=== PATIENT | female | born 1940 | race Caucasian/White ===

== ENCOUNTER 2019-12-29 10:07 | Inpatient (IN) | payer MEDICARE, OTHER, SELFPAY ==
[2019-12-29] VITALS (11 sets, daily range): BP systolic 180–204; BP diastolic 57–84; PULSE 66–102; RESP 18–20; TEMP 35.9–36.9; O2SAT 96–100; BMI 35.6
--- NOTE | 2019-12-29 | US_ITS ---
EXAMINATION: US VENOUS ULTRASOUND WITH DOPPLER UPPER EXTREMITY, RIGHT CLINICAL INFORMATION: Right arm edema/swelling. Assess for occult DVT. COMPARISON: Chest radiograph 12/29/2019, bilateral lower extremity venous ultrasound 12/29/2019. TECHNIQUE: Ultrasound of the upper extremity is performed using compression sonography and color and pulse Doppler flow with assessment of augmentation of flow. There is also imaging and Doppler assessment of the jugular and subclavian veins. Spectral analysis with color-flow imaging is performed. FINDINGS: Respiratory variation, normal compression, and augmented flow are noted throughout the upper extremity including the axillary, brachial, cubital, and radial and ulnar veins. There is normal flow in the internal jugular and subclavian veins. There is no visible deep or superficial thrombophlebitis. IMPRESSION: No DVT demonstrated in the right upper extremity.
--- NOTE | 2019-12-29 | US_ITS ---
EXAMINATION: US VENOUS ULTRASOUND WITH DOPPLER LOWER EXTREMITY, BILATERAL CLINICAL INFORMATION: Lower extremity pain and swelling. Assess for occult DVT. COMPARISON: Report bilateral lower extremity venous ultrasound 11/21/2019, images unavailable. TECHNIQUE: Ultrasound of the bilateral lower extremity deep veins is performed from the hip to the calf with compression sonography and color and pulse Doppler assessment. Spectral analysis with color-flow imaging is performed. FINDINGS: There is normal venous compression and respiratory variation and augmented flow bilateral lower extremity. The visualized bilateral common femoral vein, superficial femoral vein, profunda femoral vein, popliteal vein, and the trifurcation region shows no evidence of deep venous thrombosis. There is no significant popliteal fossa cyst on either side. IMPRESSION: No DVT demonstrated in the bilateral lower extremity.
--- NOTE | 2019-12-29 | XR_ITS ---
EXAMINATION: XR CHEST, PORTABLE CLINICAL INFORMATION: Shortness of breath, dyspnea COMPARISON: Report chest radiographs 11/21/2019, films unavailable. TECHNIQUE: Portable upright AP view of the chest is performed. FINDINGS: Patient is slightly rotated to the right. There are low lung volumes. The lungs are grossly clear. There is no vascular congestion, airspace consolidation, or effusion. The cardiopericardial silhouette is mildly enlarged as noted on prior report. The costophrenic sulci are clear. The visualized hilar and mediastinal contours and bony structures are unremarkable. IMPRESSION: Mild cardiomegaly as noted on prior report. No vascular congestion, infiltrate, or effusion.
--- NOTE | 2019-12-29 10:55 | ED.SOB ---
HPI - SOB/Dyspnea General Chief Complaint: Weakness Stated Complaint: weakness/htn/fall Time Seen by Provider: 12/29/19 10:55 Source: patient and EMS Mode of arrival: EMS Limitations: no limitations History of Present Illness HPI Narrative: reportedly slipped out of bed this AM EMS called for lift assist the patient refused transport found to be short of breath, 911 called again for shortness of breath in 70s per EMS given 3L NC up to 90s, patient reports overall severe swelling had been on diuretics in the past but not now, states she is swollen and has rouble breathing MD elicited complaint: shortness of breath Onset (ago): week(s) (2) Timing: constant Severity: moderate Exacerbating factors: exertion Relieving factors: oxygen and rest Associated symptoms: orthopnea Treatment prior to arrival: oxygen Related Data Home Medications Medication Instructions Recorded Confirmed amlodipine 10 mg tablet 10 mg PO DAILY 12/24/19 12/29/19 blood sugar diagnostic #10 12/24/19 carvedilol 6.25 mg tablet 6.25 mg PO BID 12/24/19 12/29/19 cholecalciferol (vitamin D3) 50 50 mcg PO DAILY 12/24/19 12/29/19 mcg (2,000 unit) capsule ferrous gluconate 324 mg (37.5 mg 324 mg PO BID 12/24/19 12/29/19 iron) tablet gabapentin 300 mg capsule 300 mg PO TID 12/24/19 12/29/19 hydralazine 25 mg tablet 25 mg PO TID 12/24/19 12/29/19 insulin degludec 200 unit/mL (3 46 unit SUBCUT [facility] 12/24/19 12/29/19 mL) subcutaneous pen isosorbide mononitrate 60 mg 60 mg PO M 12/24/19 12/29/19 tablet,extended release 24 hr lancets 33 gauge #100 12/24/19 levothyroxine 50 mcg tablet 50 mcg PO DAILY 12/24/19 12/29/19 linagliptin 5 mg tablet 5 mg PO DAILY 12/24/19 12/29/19 omeprazole 20 mg capsule,delayed 20 mg PO [facility] 12/24/19 12/29/19 release pen needle, diabetic 32 gauge x #50 12/24/19 rosuvastatin 10 mg tablet 10 mg PO BEDTIME 12/24/19 12/29/19 insulin aspart U-100 [Novolog 7 - 9 unit SUBCUT TID 12/29/19 12/29/19 Flexpen U-100 Insulin] Allergies Allergy/AdvReac Type Severity Reaction Status Date / Time oxycodone Allergy Unknown rash Verified 12/29/19 11:15 Review of Systems Review of Systems: Constitutional : No Fever, No Chills ENT/Mouth : No sore throat, No Rhinorrhea, No Swallowing Difficulty Eyes: No Eye Pain, No Swelling, No Redness Cardiovascular : No Chest Pain, positive SOB, positive Orthopnea, positive Edema Respiratory : No Cough, No Sputum, pos Wheezing, positive dyspnea Gastrointestinal : No Nausea, No Vomiting, No Diarrhea, No abdominal Pain Genitourinary : No Dysuria, No Urinary Frequency Neuro : positive diffuse Weakness, No Numbness, No Dizziness, No Headache Psych : No Anxiety/Panic, No Depression Heme/Lymph: No Bruising, No Lymphadenopathy Endocrine : No Polyuria, No Polydipsia PMFSH Past Medical History Attestation statement: The following information was validated with the patient. Medical History Anemia Bronchitis CAD (coronary artery disease) CKD (chronic kidney disease) Diabetes Dyslipidemia GERD (gastroesophageal reflux disease) HTN (hypertension) Hypothyroid Surgical History H/O angioplasty H/O heart artery stent H/O: hysterectomy Social History Social History Alcohol intake: never Smoking Status: Former smoker Smoked in Last 30 Days: No Use of substances other than those prescribed or required for medical reasons: No Advance Directives: No Advance Directives Information Provided: No Physical Exam Vital Signs and I&O and Narrative: Vital Signs and I&O: Vital Signs Temp 96.7 F L 12/29/19 10:16 Pulse 72 12/29/19 13:11 Resp 20 12/29/19 13:11 BP 180/84 H 12/29/19 13:11 Pulse Ox 96 12/29/19 13:11 Intake & Output 12/28/19 12/29/19 12/29/19 18:59 06:59 18:59 Weight 88.313 kg Body Mass Index 35.6 Const: General: alert, awake and acute distress (mild respiratory) Orientation/consciousness: patient oriented x3 HENMT: Head: Yes normal to inspection Mouth: moist mucous membranes abnormal Eyes: Eyelids: Yes eyelids normal Pupils: Equal, round and reactive pupils present Neck: Neck: Yes trachea midline Resp: Effort & Inspection: audible wheezes, respiratory distress (mild), tachypneic and uses accessory muscles Auscultation: rales and wheezes Cardio: Jugular venous distension: JVD Rate: regular rate Rhythm: regular rhythm Peripheral pulses: Peripheral pulses 2+ throughout GI: Palpation (GI): Soft to palpation and nontender Skin: General skin exam: no rashes or lesions noted Neuro: General: patient oriented x3 Cranial nerves: Yes Equal, round and reactive pupils present Motor exam (neuro): 5/5 motor strength present throughout Sensory Exam: Normal double simultaneous stimulation for sensation Extrem: Other: bilateral 2 to 3+ pitting edema BLE, RUE pitting edema as well 3+ denies injury Course Course Hospital Course: patient reports feeling improved after treatments, afebrile, no WBC count, negative lactic acid, negative DVT study, will need admission for further workup and diuresis MDM - SOB/Dyspnea MDM Narrative Medical decision making narrative: patient with wheezes, dyspnea states she used to be on a diuretic here with edema as well - will need labs, neb, IV steroids, EKG, CXR, BNP, likely diuretic planned admit suspect volume overload as cause Lab Data Result diagrams: 12/29/19 10:58 12/29/19 10:58 Labs: Lab Results 12/29/19 12/29/19 12/29/19 Range/Units 10:58 10:58 10:58 WBC 11.2 H (4.8-10.8) X10*3/uL RBC 3.73 L (4.20-5.50) X10*6/uL Hgb 10.1 L (12.0-16.0) g/dl Hct 31.7 L (37-47) % MCV 85.0 (80-98) fL MCH 27.1 (27.0-33.0) pg MCHC 31.9 (31.0-35.0) g/dl RDW 15.5 (11.0-16.0) % Plt Count 242 (160-400) X10*3/uL MPV 10.5 (9.4-12.3) fL Immature Gran % (Auto) 0.4 (0.0-0.4) % Neut % (Auto) 80.0 H (45-73) % Lymph % (Auto) 12.3 L (20-40) % [place] % (Auto) 5.7 (2-11) % Eos % (Auto) 1.2 (0-4) % Baso % (Auto) 0.4 (0-2) % Neut # (Auto) 8.9 H (2.0-8.3) X10*3/uL Lymph # (Auto) 1.4 (1.2-4.9) X10*3/uL [place] # (Auto) 0.6 (0.1-1.2) X10*3/uL Eos # (Auto) 0.1 (0.0-0.4) X10*3/uL Baso # (Auto) 0.1 (0.0-0.2) X10*3/uL Abs Immat Gran (auto) 0.04 H (0.00-0.03) X10*3/uL Absolute Nucleated RBC 0.000 (0.0-0.012) X10*3/uL Nucleated RBC % (auto) 0.0 (0.0-0.2) /100WBC PT (10.8-13.0) SEC INR (0.9-1.1) APTT (24.1-38.0) SEC Hold Blue Top Sodium 143 (135-145) mmol/L Potassium 4.6 (3.3-5.1) mmol/l Chloride 108 (96-108) mmol/L Carbon Dioxide 26 (22-29) mmol/L Anion Gap 14 (12-20) BUN 26 H (9-16) mg/dL Creatinine (0.5-1.4) mg/dL Estim Creat Clear Calc 21.8 Estimated GFR 22 Random Glucose 101 (60-115) mg/dL Lactic Acid (0.5-2.0) mmol/L Calcium 8.8 (8.4-10.2) mg/dL Magnesium (1.6-2.6) mg/dL Total Bilirubin (0.0-1.0) mg/dL Direct Bilirubin (0.0-0.5) mg/dL AST (5-31) U/L ALT (0-31) U/L Alkaline Phosphatase (39-117) U/L Troponin I High Sens 7.0 (<3.5-17.0) ng/L B-Natriuretic Peptide 122 H (<100) pg/mL Total Protein (6.5-8.0) g/dL Albumin (3.5-5.0) g/dL 12/29/19 12/29/19 12/29/19 Range/Units 10:58 12:06 12:06 WBC (4.8-10.8) X10*3/uL RBC (4.20-5.50) X10*6/uL Hgb (12.0-16.0) g/dl Hct (37-47) % MCV (80-98) fL MCH (27.0-33.0) pg MCHC (31.0-35.0) g/dl RDW (11.0-16.0) % Plt Count (160-400) X10*3/uL MPV (9.4-12.3) fL Immature Gran % (Auto) (0.0-0.4) % Neut % (Auto) (45-73) % Lymph % (Auto) (20-40) % [place] % (Auto) (2-11) % Eos % (Auto) (0-4) % Baso % (Auto) (0-2) % Neut # (Auto) (2.0-8.3) X10*3/uL Lymph # (Auto) (1.2-4.9) X10*3/uL [place] # (Auto) (0.1-1.2) X10*3/uL Eos # (Auto) (0.0-0.4) X10*3/uL Baso # (Auto) (0.0-0.2) X10*3/uL Abs Immat Gran (auto) (0.00-0.03) X10*3/uL Absolute Nucleated RBC (0.0-0.012) X10*3/uL Nucleated RBC % (auto) (0.0-0.2) /100WBC PT 12.0 (10.8-13.0) SEC INR 1.0 (0.9-1.1) APTT 44.9 H (24.1-38.0) SEC Hold Blue Top SEE NOTE Sodium (135-145) mmol/L Potassium (3.3-5.1) mmol/l Chloride (96-108) mmol/L Carbon Dioxide (22-29) mmol/L Anion Gap (12-20) BUN (9-16) mg/dL Creatinine (0.5-1.4) mg/dL Estim Creat Clear Calc Estimated GFR Random Glucose (60-115) mg/dL Lactic Acid (0.5-2.0) mmol/L Calcium (8.4-10.2) mg/dL Magnesium 2.2 (1.6-2.6) mg/dL Total Bilirubin 0.4 (0.0-1.0) mg/dL Direct Bilirubin 0.2 (0.0-0.5) mg/dL AST 22 (5-31) U/L ALT 11 (0-31) U/L Alkaline Phosphatase 83 (39-117) U/L Troponin I High Sens (<3.5-17.0) ng/L B-Natriuretic Peptide (<100) pg/mL Total Protein 5.8 L (6.5-8.0) g/dL Albumin 3.5 (3.5-5.0) g/dL 12/29/19 Range/Units 12:06 WBC (4.8-10.8) X10*3/uL RBC (4.20-5.50) X10*6/uL Hgb (12.0-16.0) g/dl Hct (37-47) % MCV (80-98) fL MCH (27.0-33.0) pg MCHC (31.0-35.0) g/dl RDW (11.0-16.0) % Plt Count (160-400) X10*3/uL MPV (9.4-12.3) fL Immature Gran % (Auto) (0.0-0.4) % Neut % (Auto) (45-73) % Lymph % (Auto) (20-40) % [place] % (Auto) (2-11) % Eos % (Auto) (0-4) % Baso % (Auto) (0-2) % Neut # (Auto) (2.0-8.3) X10*3/uL Lymph # (Auto) (1.2-4.9) X10*3/uL [place] # (Auto) (0.1-1.2) X10*3/uL Eos # (Auto) (0.0-0.4) X10*3/uL Baso # (Auto) (0.0-0.2) X10*3/uL Abs Immat Gran (auto) (0.00-0.03) X10*3/uL Absolute Nucleated RBC (0.0-0.012) X10*3/uL Nucleated RBC % (auto) (0.0-0.2) /100WBC PT (10.8-13.0) SEC INR (0.9-1.1) APTT (24.1-38.0) SEC Hold Blue Top Sodium (135-145) mmol/L Potassium (3.3-5.1) mmol/l Chloride (96-108) mmol/L Carbon Dioxide (22-29) mmol/L Anion Gap (12-20) BUN (9-16) mg/dL Creatinine (0.5-1.4) mg/dL Estim Creat Clear Calc Estimated GFR Random Glucose (60-115) mg/dL Lactic Acid 0.6 (0.5-2.0) mmol/L Calcium (8.4-10.2) mg/dL Magnesium (1.6-2.6) mg/dL Total Bilirubin (0.0-1.0) mg/dL Direct Bilirubin (0.0-0.5) mg/dL AST (5-31) U/L ALT (0-31) U/L Alkaline Phosphatase (39-117) U/L Troponin I High Sens (<3.5-17.0) ng/L B-Natriuretic Peptide (<100) pg/mL Total Protein (6.5-8.0) g/dL Albumin (3.5-5.0) g/dL ECG Data Attestation: I personally reviewed and interpreted this ECG as follows: ECG interpretation date: 12/29/19 ECG interpretation time: 11:29 Interpretation: NSR 73, normal p waves leslie, normal QRS, left axis deviation, nonspecific ST T wave changes, no ischemia artifact present Discharge Plan Discharge Clinical Impression: Acute dyspnea, Weakness Edema Qualifiers: Edema type: generalized Qualified Code(s): R60.1 - Generalized edema Patient Disposition: Admitted As Inpatient
[2019-12-29 11:04] LABS: MANUAL DIFF FLAG NO
--- NOTE | 2019-12-29 11:10 | ECG_ITS ---
Test Reason : SOB Blood Pressure : / mmHG Vent. Rate : 073 BPM Atrial Rate : 073 BPM P-R Int : 132 ms QRS Dur : 074 ms QT Int : 404 ms P-R-T Axes : 031 005 091 degrees QTc Int : 445 ms Poor data quality, interpretation may be adversely affected Normal sinus rhythm Nonspecific T wave abnormality Abnormal ECG When compared with ECG of 22-NOV-2019 14:16, T wave inversion no longer evident in Lateral leads Referred By: Amairani Strong Electronically Signed By:BERNARDINO BEAVERS
[2019-12-29 11:13] LABS: Basophils Absolute Auto 0.1 X10*3/uL (0.0-0.2); Basophils Percent Auto 0.4 % (0-2); Eosinophils Absolute Auto 0.1 X10*3/uL (0.0-0.4); Eosinophils Percent Auto 1.2 % (0-4); Hematocrit 31.7 % (37-47); Hemoglobin 10.1 g/dl (12.0-16.0); Imm Gran Abs Auto 0.04 X10*3/uL (0.00-0.03); Imm Gran Pct Auto 0.4 % (0.0-0.4); Lymphocytes Absolute Auto 1.4 X10*3/uL (1.2-4.9); Lymphocytes Percent Auto 12.3 % (20-40); Mean Corpuscular HGB Conc 31.9 g/dl (31.0-35.0); Mean Corpuscular Hemoglobin 27.1 pg (27.0-33.0); Mean Platelet Volume 10.5 fL (9.4-12.3); Monocytes Absolute Auto 0.6 X10*3/uL (0.1-1.2); Monocytes Percent Auto 5.7 % (2-11); Neutrophils Absolute Auto 8.9 X10*3/uL (2.0-8.3); Platelet Count 242 X10*3/uL (160-400); Red Blood Count 3.73 X10*6/uL (4.20-5.50); Red Cell Distribution Width 15.5 % (11.0-16.0); White Blood Count 11.2 X10*3/uL (4.8-10.8)
[2019-12-29 11:36] LABS: Anion Gap 14 (12-20); Blood Urea Nitrogen 26 mg/dL (9-16); Calcium 8.8 mg/dL (8.4-10.2); Carbon Dioxide 26 mmol/L (22-29); Chloride 108 mmol/L (96-108); Creatinine Clr Calc Pharmacy 21.8; Estimated Glomerular Filt Rate 22; Glucose Random 101 mg/dL (60-115); Potassium 4.6 mmol/l (3.3-5.1); Sodium 143 mmol/L (135-145)
[2019-12-29 11:44] LABS: B Type Natriuretic Peptide 122 pg/mL (<100)
[2019-12-29] MEDS: Albuterol/Iprat 2.5/0.5MG 3 ML AMPUL.NEB INHALE ×2 (11:47→20:43)
--- NOTE | 2019-12-29 11:50 | PC.NURSE ---
PT ALERT AND ORIENTED X4, BUT FORGETFUL AND POOR HISTORIAN AT TIMES. SKIN WPD. RESPIRATIONS LABORED, ACCESSORY MUSCLE USE, LUNGS DIMINISHED WITH EXP WHEEZES THROUGHOUT. ACCORDING TO EMS, PT SP02 WAS 77% ON RA THIS AM. NOW 100% ON 2L VIA NC. MODERATE EDEMA TO LOWER EXTREMITIES, AND MILD EDEMA TO UPPER EXTREMITIES. IV ACCESS OBTAINED (20G TO LEFT AC BY THIS RN, 22G TO RIGHT HAND BY EMS). LABS SENT. MEDICATED WITH SOLUMEDROL AND UPDRAFT (BY RT) PER EMAR. AWAITING CHEST XRAY, BLOOD RESULTS.
[2019-12-29 12:24] LABS: Partial Thromboplastin Time 44.9 SEC (24.1-38.0)
[2019-12-29 12:48] LABS: Lactic Acid 0.6 mmol/L (0.5-2.0)
[2019-12-29 12:51] LABS: Alanine Aminotransferase 11 U/L (0-31); Albumin Level 3.5 g/dL (3.5-5.0); Alkaline Phosphatase 83 U/L (39-117); Aspartate Amino Transferase 22 U/L (5-31); Bilirubin Direct 0.2 mg/dL (0.0-0.5); Bilirubin Total 0.4 mg/dL (0.0-1.0); Magnesium 2.2 mg/dL (1.6-2.6); Total Protein 5.8 g/dL (6.5-8.0)
[2019-12-29] MEDS: methylPREDNISolone Sod Succ/PF 125 MG/2 ML VIAL IVPUSH (13:05)
[2019-12-29] MEDS: Furosemide 100 MG/10 ML VIAL 60 MG IVPUSH (14:42)
[2019-12-29 16:10] LABS: Glucose Urine UA NEG (NEG); Leukocyte Esterase Urine NEG (NEG); Nitrite Urine NEG (NEG); PH 7.5 (5.0-8.0); Urine Blood 1+ (NEG); Urine Ketones NEG (NEG); Urine Protein 3+ MG/DL (NEG-TRACE)
[2019-12-29] MEDS: Morphine Sulfate 4 MG/ML CARTRIDGE 2 MG IVPUSH (16:10)
[2019-12-29 16:13] LABS: Thyroid Stimulating Hormone 3.47 mIU/mL (0.32-4.0)
[2019-12-29 16:16] LABS: Appearance Urine HAZY; Color Urine YELLOW
--- NOTE | 2019-12-29 16:43 | P.HPIM_ITS ---
History of Present Illness Date of Service: 12/29/19 Chief Complaint: shortness of breath generalized swelling 79-year-old female presented with weakness fall and generalized swelling, patient was recently admitted to [facility] treated for sepsis secondary to UTI and NSTEMI patient reported she was feeling weak yesterday she went to bed around 12:00 o'clock and fell down from bed around 15:00, EMS was called patient found to be hypoxic, patient was placed on 2 L of nasal cannula and oxygen improved in 90s , patient reported some urinary frequency, denies any fever chills nausea vomiting, patient noticed to have generalized swelling for last few days and was getting worse, patient was taking Lasix before but stopped , patient denies any sick contacts, patient has CKD and significant proteinuria patient is being followed by [facility] but does not remember the name BNP was normal , but given generalized edema patient was given IV Lasix echocardiogram from June 2018 shows EF 60-65% Review of Systems 2 Review of Systems: Yes all other systems are reviewed and are negative Eyes: Eyes: Reports no additional eye complaints Cardiovascular: Cardiovascular: Reports leg edema and Reports dyspnea Respiratory: Respiratory: Reports dyspnea Gastrointestinal: Gastrointestinal: Reports no additional gastrointestinal complaints Musculoskeletal: Musculoskeletal: Reports arthralgias Neurologic: Reports system reviewed and no additional complaints, except as documented [facility] Medical History (Updated 12/30/19 @ 10:43 by Dash Batista MD) Anemia Bronchitis CAD (coronary artery disease) CKD (chronic kidney disease) Diabetes Dyslipidemia GERD (gastroesophageal reflux disease) HTN (hypertension) Hypothyroid Functional capacity: uses cane/walker Patient : No Surgical History H/O angioplasty H/O heart artery stent H/O: hysterectomy Social History Household Members: Spouse Housing: House Do you presently have visiting nurse or other home services: Yes Alcohol intake: never Smoking Status: Never smoker Smoked in Last 30 Days: No Second Hand Smoke Exposure: Yes Use of substances other than those prescribed or required for medical reasons: Yes Currently Displaying Signs/Symptoms of Drug Intoxication Withdrawal: No Have you been hit, kicked, punched, or otherwise hurt by someone within the past year? If so, by whom?: No Do you feel safe in your current relationship?: Yes Is there a partner from a previous relationship who is making you feel unsafe now?: No Are you made to feel afraid or neglected: No Spiritual Healthcare Practices: Buddhism Advance Directives: No Advance Directives Information Provided: No Do you have thoughts of harming others: None Do you have a plan to hurt others: No Plan Recently lost weight without trying: No service: No Meds Allergies Allergy/AdvReac Type Severity Reaction Status Date / Time oxycodone Allergy Unknown rash Verified 12/29/19 11:15 Home Medications Medication Instructions Recorded Confirmed Type blood sugar diagnostic #10 ea 12/24/19 12/29/19 History lancets 33 gauge #100 ea 12/24/19 12/29/19 History pen needle, diabetic 32 gauge x #50 ea 12/24/19 12/29/19 History amlodipine 10 mg PO DAILY 12/29/19 12/29/19 History carvedilol 6.25 mg PO BID 12/29/19 12/29/19 History cholecalciferol (vitamin D3) 50 mcg PO DAILY 12/29/19 12/29/19 History ferrous gluconate 324 mg PO BID 12/29/19 12/29/19 History gabapentin 300 mg PO TID 12/29/19 12/29/19 History hydralazine 25 mg PO TID 12/29/19 12/29/19 History insulin aspart U-100 [Novolog 7 - 9 unit SUBCUT TID 12/29/19 12/29/19 History Flexpen U-100 Insulin] insulin degludec [Tresiba 46 unit SUBCUT DAILY 12/29/19 12/29/19 History FlexTouch U-200] isosorbide mononitrate 60 mg PO DAILY 12/29/19 12/29/19 History levothyroxine 50 mcg PO DAILY 12/29/19 12/29/19 History linagliptin [Tradjenta] 5 mg PO DAILY 12/29/19 12/29/19 History Physical Exam Vital Signs and Narrative: Vital Signs: Last Vital Signs Temp 96.7 F L 12/29/19 10:16 Pulse 72 12/29/19 13:11 Resp 20 12/29/19 13:11 BP 180/84 H 12/29/19 13:11 Pulse Ox 96 12/29/19 13:11 Body Mass Index 35.6 Const: General: no acute distress Orientation/consciousness: patient oriented x3 Resp: Auscultation: rales and wheezes Cardio: Rate: regular rate Heart sounds: S1 normal heart sound present and S2 normal heart sound present GI: Inspection: Yes normal to inspection Auscultation: normal bowel sounds Neuro: General: patient oriented x3 Results Labs Labs: Laboratory Tests 12/29/19 12/29/19 12/29/19 10:58 10:58 10:58 WBC 11.2 H RBC 3.73 L Hgb 10.1 L Hct 31.7 L MCV 85.0 MCH 27.1 MCHC 31.9 RDW 15.5 Plt Count 242 MPV 10.5 Immature Gran % (Auto) 0.4 Neut % (Auto) 80.0 H Lymph % (Auto) 12.3 L [place] % (Auto) 5.7 Eos % (Auto) 1.2 Baso % (Auto) 0.4 Neut # (Auto) 8.9 H Lymph # (Auto) 1.4 [place] # (Auto) 0.6 Eos # (Auto) 0.1 Baso # (Auto) 0.1 Abs Immat Gran (auto) 0.04 H Absolute Nucleated RBC 0.000 Nucleated RBC % (auto) 0.0 PT INR APTT Hold Blue Top Sodium 143 Potassium 4.6 Chloride 108 Carbon Dioxide 26 Anion Gap 14 BUN 26 H Creatinine Estim Creat Clear Calc 21.8 Estimated GFR 22 Random Glucose 101 Lactic Acid Calcium 8.8 Magnesium Total Bilirubin Direct Bilirubin AST ALT Alkaline Phosphatase Troponin I High Sens 7.0 B-Natriuretic Peptide 122 H Total Protein Albumin TSH Urine Color Urine Appearance Urine pH Ur Specific [place] Urine Protein Urine Glucose (UA) Urine Ketones Urine Blood Urine Nitrite Ur Leukocyte Esterase 12/29/19 12/29/19 12/29/19 10:58 12:06 12:06 WBC RBC Hgb Hct MCV MCH MCHC RDW Plt Count MPV Immature Gran % (Auto) Neut % (Auto) Lymph % (Auto) [place] % (Auto) Eos % (Auto) Baso % (Auto) Neut # (Auto) Lymph # (Auto) [place] # (Auto) Eos # (Auto) Baso # (Auto) Abs Immat Gran (auto) Absolute Nucleated RBC Nucleated RBC % (auto) PT 12.0 INR 1.0 APTT 44.9 H Hold Blue Top SEE NOTE Sodium Potassium Chloride Carbon Dioxide Anion Gap BUN Creatinine Estim Creat Clear Calc Estimated GFR Random Glucose Lactic Acid Calcium Magnesium 2.2 Total Bilirubin 0.4 Direct Bilirubin 0.2 AST 22 ALT 11 Alkaline Phosphatase 83 Troponin I High Sens B-Natriuretic Peptide Total Protein 5.8 L Albumin 3.5 TSH 3.47 Urine Color Urine Appearance Urine pH Ur Specific [place] Urine Protein Urine Glucose (UA) Urine Ketones Urine Blood Urine Nitrite Ur Leukocyte Esterase 12/29/19 12/29/19 12:06 16:01 WBC RBC Hgb Hct MCV MCH MCHC RDW Plt Count MPV Immature Gran % (Auto) Neut % (Auto) Lymph % (Auto) [place] % (Auto) Eos % (Auto) Baso % (Auto) Neut # (Auto) Lymph # (Auto) [place] # (Auto) Eos # (Auto) Baso # (Auto) Abs Immat Gran (auto) Absolute Nucleated RBC Nucleated RBC % (auto) PT INR APTT Hold Blue Top Sodium Potassium Chloride Carbon Dioxide Anion Gap BUN Creatinine Estim Creat Clear Calc Estimated GFR Random Glucose Lactic Acid 0.6 Calcium Magnesium Total Bilirubin Direct Bilirubin AST ALT Alkaline Phosphatase Troponin I High Sens B-Natriuretic Peptide Total Protein Albumin TSH Urine Color YELLOW Urine Appearance HAZY Urine pH 7.5 Ur Specific [place] 1.020 Urine Protein 3+ H Urine Glucose (UA) NEG Urine Ketones NEG Urine Blood 1+ H Urine Nitrite NEG Ur Leukocyte Esterase NEG Assessment and Plan (1) Generalized edema: Status: Acute (2) COPD exacerbation: Status: Acute 79-year-old female presented with weakness fall and generalized swelling Generalized swelling with significant proteinuria and CKD rule out nephrotic syndrome bnp normal received IV Lasix will continue IV Lasix nephrology consult mild COPD exacerbation will give nebulizer treatment and steroids continue oxygen supplementation reported to be hypoxic on room air at home CKD monitor kidney function avoid nephrotoxins diabetes mellitus continue sliding scale insulin DVT prophylaxis heparin s/c
[2019-12-29 16:44] LABS: UACC CULT YES
[2019-12-29 16:45] LABS: Bacteria Urine 3+ /LPF; RBC Urine 0-2 /HPF (0)
--- NOTE | 2019-12-29 17:46 | PC.NURSE ---
PATIENT TRANSPORTED TO FLOOR VIA FLOAT. REPORT GIVEN NO QUESTIONS.
[2019-12-29] MEDS: predniSONE 20 MG TABLET PO (19:06)
[2019-12-29] MEDS: Isosorbide Mononitrate 60 MG TAB.ER.24H PO (19:06)
[2019-12-29] MEDS: Heparin Sodium,Porcine 5,000 UNIT/ML VIAL 5000 UNIT SUBCUT (20:46)
[2019-12-29] MEDS: Furosemide 40 MG/4 ML VIAL IVPUSH (20:47)
[2019-12-29] MEDS: carvediloL 6.25 MG TABLET PO (21:04)
[2019-12-29] MEDS: hydrALAZINE HCl 25 MG TABLET PO (21:05)
[2019-12-29] MEDS: Ferrous Sulfate 324 MG TABLET.DR PO (21:06)
[2019-12-29] MEDS: Gabapentin 300 MG CAPSULE PO (21:06)
[2019-12-29 21:30] LABS: Glucose, Whole Blood 313 mg/dL (60-115)
[2019-12-29] MEDS: Insulin Lispro 100 UNIT/ML 3 ML VIAL SUBCUT (21:50)
[2019-12-29] MEDS: 0.9 % Sodium Chloride Flush 3 ML SYRINGE 2 ML IVFLUSH ×2 (23:41→23:46)
[2019-12-30] VITALS (11 sets, daily range): BP systolic 149–195; BP diastolic 55–90; PULSE 66–79; RESP 16–150; TEMP 36.3–37.5; O2SAT 95–98; BMI 35.6
[2019-12-30] MEDS: Heparin Sodium,Porcine 5,000 UNIT/ML VIAL 5000 UNIT SUBCUT ×3 (04:00→20:20)
[2019-12-30 07:42] LABS: Glucose, Whole Blood 171 mg/dL (60-115)
[2019-12-30] MEDS: Insulin Lispro 100 UNIT/ML 3 ML VIAL SUBCUT ×4 (07:51→21:27)
[2019-12-30] MEDS: Levothyroxine Sodium 50 MCG TABLET PO (07:52)
[2019-12-30] MEDS: Furosemide 40 MG/4 ML VIAL IVPUSH ×2 (07:52→20:18)
[2019-12-30] MEDS: Isosorbide Mononitrate 60 MG TAB.ER.24H PO (07:52)
[2019-12-30] MEDS: Gabapentin 300 MG CAPSULE PO ×3 (07:52→20:17)
[2019-12-30] MEDS: hydrALAZINE HCl 25 MG TABLET PO ×3 (07:53→20:17)
[2019-12-30] MEDS: Cholecalciferol (Vitamin D3) 25 MCG TABLET 50 MCG PO (07:53)
[2019-12-30] MEDS: 0.9 % Sodium Chloride Flush 3 ML SYRINGE 2 ML IVFLUSH ×3 (07:53→23:41)
[2019-12-30] MEDS: Ferrous Sulfate 324 MG TABLET.DR PO ×2 (07:53→20:16)
[2019-12-30] MEDS: carvediloL 6.25 MG TABLET PO ×2 (07:53→20:16)
[2019-12-30] MEDS: predniSONE 20 MG TABLET PO (07:53)
[2019-12-30] MEDS: Albuterol/Iprat 2.5/0.5MG 3 ML AMPUL.NEB INHALE ×3 (08:07→19:41)
[2019-12-30 08:55] LABS: MANUAL DIFF FLAG NO
--- NOTE | 2019-12-30 09:10 | P.CDIC_ITS ---
CDI Concurrent Query Service Date: 12/30/19 Documentation Clarification: Please clarify if you are treating a proba ble/suspected/likely or confirmed: Acute hypoxic respiratory failure POA, Resolved Please specify if known acute hypoxic respiratory failure Provider Response: Acute Respiratory Failure PLEASE DO NOT DELETE/MODIFY EXISTING CONTENT Additional information is needed in order to code to the highest accuracy and appropriate Severity of Illness (SOI). Please clarify the information noted below in your progress notes and discharge summary. Risk Factors/Clinical Indicators/Treatments HR 120 RR 20 dyspnea, orthopnea, hypoxic, SOB , sats 70's per EMS given 3 liters NC up to 90's. Trouble breathing. COPD, History of smoking. CDS: Kimberly Shi CCS, CDIS Contact Number: [phone] Please Review the information above and exercise your independent professional judgment in responding to the query. If you concur, pleas document in the PROGRESS NOTES and DISCHARGE SUMMARY. If you do not agree with the query, please document in the query above. THIS QUERY IS PART OF THE PERMANENT MEDICAL RECORD
[2019-12-30 09:14] LABS: Basophils Percent Auto 0.1 % (0-2); Hematocrit 26.9 % (37-47); Hemoglobin 8.4 g/dl (12.0-16.0); Imm Gran Abs Auto 0.06 X10*3/uL (0.00-0.03); Imm Gran Pct Auto 0.6 % (0.0-0.4); Lymphocytes Absolute Auto 1.1 X10*3/uL (1.2-4.9); Mean Corpuscular HGB Conc 31.2 g/dl (31.0-35.0); Mean Corpuscular Hemoglobin 26.2 pg (27.0-33.0); Mean Corpuscular Volume 83.8 fL (80-98); Mean Platelet Volume 10.5 fL (9.4-12.3); Monocytes Absolute Auto 0.2 X10*3/uL (0.1-1.2); Monocytes Percent Auto 2.1 % (2-11); Neutrophils Absolute Auto 8.6 X10*3/uL (2.0-8.3); Neutrophils Percent Auto 86.2 % (45-73); Platelet Count 225 X10*3/uL (160-400); Red Blood Count 3.21 X10*6/uL (4.20-5.50); Red Cell Distribution Width 15.5 % (11.0-16.0)
[2019-12-30 09:40] LABS: Anion Gap 13 (12-20); Blood Urea Nitrogen 30 mg/dL (9-16); Calcium 8.4 mg/dL (8.4-10.2); Carbon Dioxide 28 mmol/L (22-29); Chloride 104 mmol/L (96-108); Creatinine Clr Calc Pharmacy 19.1; Estimated Glomerular Filt Rate 19; Glucose Random 222 mg/dL (60-115); Potassium 4.7 mmol/l (3.3-5.1); Sodium 140 mmol/L (135-145)
--- NOTE | 2019-12-30 10:10 | MHC.CM.PN ---
dc plan home with resumption of hvns pt lives with who will transport pt home
--- NOTE | 2019-12-30 10:22 | P.CONNP_ITS ---
History of Present Illness Reason for Consult Consult date: 12/30/19 Reason for consult: MARILEE Requesting physician: Ray Good Chief Complaint Chief complaint: weakness/htn/fall; History of Present Illness Narrative: 79-year-old female presented with weakness fall and generalized swelling, patient was recently admitted to [facility] treated for sepsis secondary to UTI and NSTEMI Marielena has CKD 3 with a baseline Cr of 2.0 as of Apr 2019. Biopsy proven Diabeti c nephropathy ( [place] [facility] [place] patient reported she was feeling weak yesterday she went to bed around 12:00 o'clock and fell down from bed around 15:00, EMS was called patient found to be hypoxic, patient was placed on 2 L of nasal cannula and oxygen improved in 90s , patient reported some urinary frequency, denies any fever chills nausea vomiting, patient noticed to have generalized swelling for last few days and was getting worse, patient was taking Lasix before but stopped , patient denies any sick contacts, BNP was normal , but given generalized edema patient was given IV Lasix echocardiogram from June 2018 shows EF 60-65% Review of Systems Review of Systems Yes all other systems are reviewed and are negative Cardiovascular: Denies chest pain, Denies syncope and Reports dyspnea Respiratory: Denies cough, Denies hemoptysis and Reports dyspnea Gastrointestinal: Denies melena and Denies nausea Reports system reviewed and no additional complaints, except as documented and Denies syncope [facility] Past Medical History Medical History (Updated 12/30/19 @ 10:43 by Dash Batista MD) Anemia Bronchitis CAD (coronary artery disease) CKD (chronic kidney disease) Diabetes Dyslipidemia GERD (gastroesophageal reflux disease) HTN (hypertension) Hypothyroid Functional capacity: uses cane/walker Surgical History Surgical History H/O angioplasty H/O heart artery stent H/O: hysterectomy Social History Social History Household Members: Spouse Housing: House Do you presently have visiting nurse or other home services: Yes Alcohol intake: never Smoking Status: Never smoker Smoked in Last 30 Days: No Second Hand Smoke Exposure: Yes Use of substances other than those prescribed or required for medical reasons: Yes Currently Displaying Signs/Symptoms of Drug Intoxication Withdrawal: No Have you been hit, kicked, punched, or otherwise hurt by someone within the past year? If so, by whom?: No Do you feel safe in your current relationship?: Yes Is there a partner from a previous relationship who is making you feel unsafe now?: No Are you made to feel afraid or neglected: No Spiritual Healthcare Practices: Christianity Advance Directives: No Advance Directives Information Provided: No Do you have thoughts of harming others: None Do you have a plan to hurt others: No Plan Recently lost weight without trying: No service: No Meds Allergies Allergy/AdvReac Type Severity Reaction Status Date / Time oxycodone Allergy Unknown rash Verified 12/29/19 11:15 Home Medications Medication Instructions Recorded Confirmed Type blood sugar diagnostic #10 ea 12/24/19 12/29/19 History lancets 33 gauge #100 ea 12/24/19 12/29/19 History pen needle, diabetic 32 gauge x #50 ea 12/24/19 12/29/19 History /32 amlodipine 10 mg PO DAILY 12/29/19 12/29/19 History carvedilol 6.25 mg PO BID 12/29/19 12/29/19 History cholecalciferol (vitamin D3) 50 mcg PO DAILY 12/29/19 12/29/19 History ferrous gluconate 324 mg PO BID 12/29/19 12/29/19 History gabapentin 300 mg PO TID 12/29/19 12/29/19 History hydralazine 25 mg PO TID 12/29/19 12/29/19 History insulin aspart U-100 [Novolog 7 - 9 unit SUBCUT TID 12/29/19 12/29/19 History Flexpen U-100 Insulin] insulin degludec [Tresiba 46 unit SUBCUT DAILY 12/29/19 12/29/19 History FlexTouch U-200] isosorbide mononitrate 60 mg PO DAILY 12/29/19 12/29/19 History levothyroxine 50 mcg PO DAILY 12/29/19 12/29/19 History linagliptin [Tradjenta] 5 mg PO DAILY 12/29/19 12/29/19 History Physical Exam Vital Signs and I&O: Vital Signs Temp 98.1 F 12/30/19 08:00 Pulse 66 12/30/19 08:00 Resp 18 12/30/19 08:00 BP 195/90 H 12/30/19 08:00 Pulse Ox 95 12/30/19 08:00 Intake & Output 12/29/19 12/30/19 12/30/19 18:59 06:59 18:59 Intake Total 240 / 240 Output Total 1800 / 2400 600 / 2400 Balance -1800 / -2160 -360 / -2160 Urine Output (Average ml/kg/hr) 1.70 0.57 Weight 88.313 kg Intake: Intake, Oral Amount 240 / 240 Output: Output, Urine Amount 1800 / 2400 600 / 2400 Other: Meal Refused No Urine macedo Body Mass Index 35.6 Const General: cooperative Orientation/consciousness: oriented to person HENCO Head: Yes normal to inspection Eyes General: appearance normal, both eyes and all related structures Chest Chest palpation & inspection: normal inspection of the chest Resp Effort & Inspection: decreased respiratory effort Auscultation: rhonchi Cardio Palpation: normal PMI Heart sounds: no gallops GI Inspection: Yes normal to inspection Palpation (GI): Soft to palpation Auscultation: normal bowel sounds Skin General skin exam: dry skin Rashes: no rashes Neuro General: oriented to person Motor exam (neuro): no asterixis Results Lab Results Result Diagrams: 12/30/19 08:37 12/30/19 08:37 Lab results: Chemistry 12/29/19 12/30/19 10:58 08:37 Sodium 143 140 Potassium 4.6 4.7 Carbon Dioxide 26 28 BUN 26 H 30 H Creatinine 2.46 H Calcium 8.8 8.4 Hematology 12/29/19 12/30/19 10:58 08:37 WBC 11.2 H 10.0 Hgb 10.1 L 8.4 L Plt Count 242 225 Urinalysis 12/29/19 16:01 Urine Color YELLOW Urine Appearance HAZY Urine pH 7.5 Ur Specific [place] 1.020 Urine Protein 3+ H Urine Glucose (UA) NEG Urine Ketones NEG Urine Blood 1+ H Urine Nitrite NEG Ur Leukocyte Esterase NEG Urine RBC 0-2 Urine WBC 5-9 H Ur Squamous Epith Cells NONE Assessment and Plan (1) CKD (chronic kidney disease) stage 3, GFR 30-59 ml/min: Problem details: 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 Increase Hydralazine to 50 mg TID 2.Add Bumex 1 mg BID 3.Check Iron stores- and stool for OB May need Procrit
[2019-12-30 11:19] LABS: Glucose, Whole Blood 342 mg/dL (60-115)
--- NOTE | 2019-12-30 15:17 | HO.PM.IMPN ---
Subjective Subjective Date of Service: 12/30/19 Interval History: patient seen and examined at bedside patient still reporting feeling weak Physical Exam Vital Signs and I&O and Narrative: Vital Signs and I&O: Vital Signs Temp 97.4 F 12/30/19 12:00 Pulse 71 12/30/19 12:00 Resp 19 12/30/19 12:00 BP 149/65 H 12/30/19 12:00 Pulse Ox 97 12/30/19 12:00 Intake & Output 12/29/19 12/30/19 12/30/19 18:59 06:59 18:59 Intake Total 240 / 240 Output Total 1800 / 2400 600 / 2400 800 / 800 Balance -1800 / -2160 -360 / -2160 -800 / -800 Urine Output (Aver age ml/kg/hr) 1.70 0.57 0.76 Weight 88.313 kg 88.3 kg Intake: Intake, Oral Casimiro unt 240 / 240 Output: Output, Urine Am ount 1800 / 2400 600 / 2400 800 / 800 Other: Meal Refused No Yes Breakfast % Eate n 75% Lunch % Eaten 100% Urine macedo macedo Urine Color Yellow Body Mass Index 35.6 Const: General: no acute distress Orientation/consciousness: patient oriented x3 Resp: Auscultation: rales and wheezes Cardio: Rate: regular rate Heart sounds: S1 normal heart sound present and S2 normal heart sound present GI: Inspection: Yes normal to inspection Auscultation: normal bowel sounds Neuro: General: patient oriented x3 Objective Data Current Medications Generic Name Dose Route Start Last Admin Trade Name Freq PRN Reason Stop Dose Admin Albuterol/Ipratropium 3 ml 12/29/19 20:00 12/30/19 14:35 Albuterol/Iprat 2.5/0.5mg 3 Ml Ampul.Neb INHALE 3 ml RQ6H WHILE AWAKE MORIAH Administration Carvedilol 6.25 mg 12/29/19 21:00 12/30/19 07:53 Carvedilol 6.25 Mg Tablet PO 6.25 mg BID MORIAH Administration Protocol Ferrous Sulfate 324 mg 12/29/19 21:00 12/30/19 07:53 Ferrous Sulfate 324 Mg Tablet. PO 324 mg BID MORIAH Administration Furosemide 40 mg 12/29/19 20:00 12/30/19 07:52 Furosemide 40 Mg/4 Ml Vial IVPUSH 40 mg Q12H MORIAH Administration Protocol Gabapentin 300 mg 12/29/19 21:00 12/30/19 07:52 Gabapentin 300 Mg Capsule PO 300 mg TID MORIAH Administration Heparin Sodium (Porcine) 5,000 unit 12/29/19 20:00 12/30/19 11:54 Heparin Sodium,Porcine 5,000 Unit/Ml Vial SUBCUT 5,000 unit Q8H MORIAH Administration Hydralazine HCl 25 mg 12/29/19 21:00 12/30/19 07:53 Hydralazine Hcl 25 Mg Tablet PO 25 mg TID MORIAH Administration Protocol Insulin Human Lispro 0 unit 12/29/19 21:00 12/30/19 11:54 Insulin Lispro 100 Unit/Ml 3 Ml Vial SUBCUT 8 unit QIDACHS [facility] Administration Protocol Isosorbide Mononitrate 60 mg 12/29/19 17:56 12/30/19 07:52 Isosorbide Mononitrate 60 Mg Tab.Er.24h PO 60 mg DAILY MORIAH Administration Protocol Levothyroxine Sodium 50 mcg 12/30/19 09:00 12/30/19 07:52 Levothyroxine Sodium 50 Mcg Tablet PO 50 mcg DAILY [facility] Administration Pharmacy Consult 1 each 12/29/19 11:02 Consult Rx Perform Med Rec MISCELLANE ONCE PRN Consult order Prednisone 20 mg 12/29/19 18:00 12/30/19 07:53 Prednisone 20 Mg Tablet PO 20 mg DAILY MORIAH Administration Sodium Chloride 2 ml 12/30/19 00:00 12/30/19 07:53 0.9 % Sodium Chloride Flush 3 Ml Syringe IVFLUSH 2 ml QSHIFT [facility] Administration Vitamin D 50 mcg 12/30/19 09:00 12/30/19 07:53 Cholecalciferol (Vitamin D3) 25 Mcg Tablet PO 50 mcg DAILY [facility] Administration Labs CBC & Chem 7: 12/30/19 08:37 12/30/19 08:37 Labs: Laboratory Results - last 24 hr 12/29/19 12/29/19 12/29/19 12:06 16:01 21:24 MCV MCH MCHC RDW Plt Count MPV Immature Gran % (Auto) Neut % (Auto) Lymph % (Auto) [place] % (Auto) Eos % (Auto) Baso % (Auto) Neut # (Auto) Lymph # (Auto) [place] # (Auto) Eos # (Auto) Baso # (Auto) Abs Immat Gran (auto) Absolute Nucleated RBC Nucleated RBC % (auto) Anion Gap Estim Creat Clear Calc Estimated GFR POC Glucose 313 H Random Glucose Calcium TSH 3.47 Urine Color YELLOW Urine Appearance HAZY Urine pH 7.5 Ur Specific [place] 1.020 Urine Protein 3+ H Urine Glucose (UA) NEG Urine Ketones NEG Urine Blood 1+ H Urine Nitrite NEG Ur Leukocyte Esterase NEG Urine RBC 0-2 Urine WBC 5-9 H Ur Squamous Epith Cells NONE Urine Bacteria 3+ 12/30/19 12/30/19 12/30/19 07:39 08:37 08:37 MCV 83.8 MCH 26.2 L MCHC 31.2 RDW 15.5 Plt Count 225 MPV 10.5 Immature Gran % (Auto) 0.6 H Neut % (Auto) 86.2 H Lymph % (Auto) 11.0 L [place] % (Auto) 2.1 Eos % (Auto) 0.0 Baso % (Auto) 0.1 Neut # (Auto) 8.6 H Lymph # (Auto) 1.1 L [place] # (Auto) 0.2 Eos # (Auto) 0.0 Baso # (Auto) 0.0 Abs Immat Gran (auto) 0.06 H Absolute Nucleated RBC 0.000 Nucleated RBC % (auto) 0.0 Anion Gap 13 Estim Creat Clear Calc 19.1 Estimated GFR 19 POC Glucose 171 H Random Glucose 222 H D Calcium 8.4 TSH Urine Color Urine Appearance Urine pH Ur Specific [place] Urine Protein Urine Glucose (UA) Urine Ketones Urine Blood Urine Nitrite Ur Leukocyte Esterase Urine RBC Urine WBC Ur Squamous Epith Cells Urine Bacteria 12/30/19 11:15 MCV MCH MCHC RDW Plt Count MPV Immature Gran % (Auto) Neut % (Auto) Lymph % (Auto) [place] % (Auto) Eos % (Auto) Baso % (Auto) Neut # (Auto) Lymph # (Auto) [place] # (Auto) Eos # (Auto) Baso # (Auto) Abs Immat Gran (auto) Absolute Nucleated RBC Nucleated RBC % (auto) Anion Gap Estim Creat Clear Calc Estimated GFR POC Glucose 342 H Random Glucose Calcium TSH Urine Color Urine Appearance Urine pH Ur Specific [place] Urine Protein Urine Glucose (UA) Urine Ketones Urine Blood Urine Nitrite Ur Leukocyte Esterase Urine RBC Urine WBC Ur Squamous Epith Cells Urine Bacteria Microbiology Microbiology Results: Microbiology 12/29/19 12:06 Blood - Venous Blood Culture - Preliminary No growth after 24 hours. 12/29/19 11:56 Blood - Venous Blood Culture - Preliminary No growth after 24 hours. 12/29/19 15:50 Urine clean catch - Clean Catch Midstream Urine Culture - Preliminary Gram negative tila Assessment and Plan (1) Generalized edema: Status: Acute (2) COPD exacerbation: Status: Acute Assessment and Plan: 79-year-old female presented with weakness fall and generalized swelling Generalized swelling with significant proteinuria and CKD rule out nephrotic syndrome bnp normal received IV Lasix continue IV Lasix nephrology consult requested mild COPD exacerbation continue nebulizer treatment and steroids continue oxygen supplementation acute hypoxic respiratory failure continue oxygen supplementation reported to be hypoxic on room air at home in 70s CKD monitor kidney function avoid nephrotoxins diabetes mellitus continue sliding scale insulin DVT prophylaxis heparin s/c
[2019-12-30 17:02] LABS: Glucose, Whole Blood 269 mg/dL (60-115)
[2019-12-30 20:52] LABS: Glucose, Whole Blood 257 mg/dL (60-115)
[2019-12-31] VITALS (11 sets, daily range): BP systolic 160–202; BP diastolic 55–86; PULSE 63–124; RESP 16–97; TEMP 36.4–37.1; O2SAT 95–98
[2019-12-31] MEDS: Heparin Sodium,Porcine 5,000 UNIT/ML VIAL 5000 UNIT SUBCUT ×3 (04:21→20:21)
[2019-12-31] MEDS: Albuterol/Iprat 2.5/0.5MG 3 ML AMPUL.NEB INHALE ×3 (07:39→20:22)
[2019-12-31 08:13] LABS: Glucose, Whole Blood 121 mg/dL (60-115)
[2019-12-31] MEDS: hydrALAZINE HCl 25 MG TABLET PO ×3 (08:34→21:15)
[2019-12-31] MEDS: predniSONE 20 MG TABLET PO (08:34)
[2019-12-31] MEDS: Levothyroxine Sodium 50 MCG TABLET PO (08:34)
[2019-12-31] MEDS: Cholecalciferol (Vitamin D3) 25 MCG TABLET 50 MCG PO (08:34)
[2019-12-31] MEDS: Ferrous Sulfate 324 MG TABLET.DR PO ×2 (08:34→21:15)
[2019-12-31] MEDS: Furosemide 40 MG/4 ML VIAL IVPUSH (08:34)
[2019-12-31] MEDS: Gabapentin 300 MG CAPSULE PO ×3 (08:34→21:15)
[2019-12-31] MEDS: carvediloL 6.25 MG TABLET PO ×2 (08:34→21:15)
[2019-12-31] MEDS: 0.9 % Sodium Chloride Flush 3 ML SYRINGE 2 ML IVFLUSH ×3 (08:35→23:27)
[2019-12-31] MEDS: Isosorbide Mononitrate 60 MG TAB.ER.24H PO (08:35)
[2019-12-31 10:26] LABS: Iron 46 mcg/dL (30-160); Percent Iron Saturation 21 % (15-50); Total Iron Binding Capacity 218 mcg/dL (228-428); Unsaturated Iron Binding 172 ug/dL
--- NOTE | 2019-12-31 12:04 | PM.PNNEP ---
Subjective Subjective Interval history: patient seen and examined at bedside feels weak denies chest pain,SOB, nausea, vomiting Physical Exam Vital Signs and I&O and Narrative: Vital Signs and I&O: Vital Signs Temp 98.8 F 12/31/19 07:24 Pulse 63 12/31/19 07:24 Resp 18 12/31/19 07:24 BP 202/80 H 12/31/19 07:24 Pulse Ox 98 12/31/19 08:00 Intake & Output 12/30/19 12/31/19 12/31/19 18:59 06:59 18:59 Intake Total 720 / 720 Output Total 800 / 2700 1900 / 2700 350 / 350 Balance -800 / -1980 -1180 / -1980 -350 / -350 Urine Output (Aver age ml/kg/hr) 0.76 1.79 0.33 Weight 88.3 kg Intake: Intake, Oral Casimiro unt 720 / 720 Output: Output, Urine Am ount 800 / 1700 900 / 1700 350 / 350 Output, Urine Am ount (Catheter) 1000 / 1000 Urethral 1000 / 1000 Other: Meal Refused Yes Breakfast % Eate n 75% Lunch % Eaten 100% Dinner % Eaten 100% Number of Bowel Movements 1 Urine mcaedo MACEDO Bedside Commode Urine Color Yellow Pale Yellow Yellow Stool Bedside Commode Stool Color Green Stool Consistenc y Semi Formed Body Mass Index 35.6 Const: General: comfortable Orientation/consciousness: oriented to person, oriented to place and oriented to time HENMT: Head: Yes normocephalic and Yes atraumatic Eyes: General: appearance normal, both eyes and all related structures Neck: Neck: Yes supple Resp: Auscultation: diminished lung sounds Cardio: Heart sounds: S1 normal heart sound present and S2 normal heart sound present Neuro: General: oriented to person, oriented to place and oriented to time Extrem: Right upper extremity: edema Assessment & Plan Assessment and plan (1) CKD (chronic kidney disease) stage 3, GFR 30-59 ml/min: Status: Acute (2) Proteinuria due to type 1 diabetes mellitus: Status: Acute (3) Anemia: Status: Acute (4) Edema: Status: Acute Assessment and Plan: Scr marginally up due to diuresis known CKD due to biopsy proven diabetic nephropathy history of nephrotic range proteinuria baseline serum creatinine ~ 2 mg/dl echocardiogram in 2019 showed LVEF 60-65% edema in the setting of proteinuria also high dose gabapentin can cause edema REC increase hydralazine 50 mg tid continue diuresis consider cut back if serum creatinine continues to rise follow kidney function and electrolytes Time Spent With Patient Time: Total time spent is greater than 50% in coordination of care (as documented) at patient's floor/unit and/or counseling patient:
--- NOTE | 2019-12-31 13:08 | HO.PM.IMPN ---
Subjective Subjective Date of Service: 12/31/19 Interval History: patient seen and examined at bedside patient reported some improvement in shortness of breath Physical Exam Vital Signs and I&O and Narrative: Vital Signs and I&O: Vital Signs Temp 98.7 F 12/31/19 12:00 Pulse 63 12/31/19 12:00 Resp 16 12/31/19 12:00 BP 160/70 H 12/31/19 12:00 Pulse Ox 97 12/31/19 12:00 Intake & Output 12/30/19 12/31/19 12/31/19 18:59 06:59 18:59 Intake Total 720 / 720 Output Total 800 / 2700 1900 / 2700 350 / 350 Balance -800 / -1980 -1180 / -1979 -350 / -350 Urine Output (Aver age ml/kg/hr) 0.76 1.79 0.33 Weight 88.3 kg Intake: Intake, Oral Casimiro unt 720 / 720 Output: Output, Urine Am ount 800 / 1700 900 / 1700 350 / 350 Output, Urine Am ount (Catheter) 1000 / 1000 Urethral 1000 / 1000 Other: Meal Refused Yes Breakfast % Eate n 75% Lunch % Eaten 100% Dinner % Eaten 100% Number of Bowel Movements 1 Urine macedo MACEDO Bedside Commode Urine Color Yellow Pale Yellow Yellow Stool Bedside Commode Stool Color Green Stool Consistenc y Semi Formed Body Mass Index 35.6 Const: General: no acute distress Orientation/consciousness: patient oriented x3 Resp: Auscultation: rales and wheezes Cardio: Rate: regular rate Heart sounds: S1 normal heart sound present and S2 normal heart sound present GI: Inspection: Yes normal to inspection Auscultation: normal bowel sounds Neuro: General: patient oriented x3 Objective Data Current Medications Generic Name Dose Route Start Last Admin Trade Name Freq PRN Reason Stop Dose Admin Albuterol/Ipratropium 3 ml 12/29/19 20:00 12/31/19 07:39 Albuterol/Iprat 2.5/0.5mg 3 Ml Ampul.Neb INHALE 3 ml RQ6H WHILE AWAKE MORIAH Administration Carvedilol 6.25 mg 12/29/19 21:00 12/31/19 08:34 Carvedilol 6.25 Mg Tablet PO 6.25 mg BID MORIAH Administration Protocol Ferrous Sulfate 324 mg 12/29/19 21:00 12/31/19 08:34 Ferrous Sulfate 324 Mg Tablet. PO 324 mg BID MORIAH Administration Furosemide 40 mg 12/29/19 20:00 12/31/19 08:34 Furosemide 40 Mg/4 Ml Vial IVPUSH 40 mg Q12H MORIAH Administration Protocol Gabapentin 300 mg 12/29/19 21:00 12/31/19 08:34 Gabapentin 300 Mg Capsule PO 300 mg TID MORIAH Administration Heparin Sodium (Porcine) 5,000 unit 12/29/19 20:00 12/31/19 04:21 Heparin Sodium,Porcine 5,000 Unit/Ml Vial SUBCUT 5,000 unit Q8H MORIAH Administration Hydralazine HCl 25 mg 12/29/19 21:00 12/31/19 08:34 Hydralazine Hcl 25 Mg Tablet PO 25 mg TID [facility] Administration Protocol Insulin Human Lispro 0 unit 12/29/19 21:00 12/31/19 08:35 Insulin Lispro 100 Unit/Ml 3 Ml Vial SUBCUT Not Given QIDACHS [facility] Protocol Isosorbide Mononitrate 60 mg 12/29/19 17:56 12/31/19 08:35 Isosorbide Mononitrate 60 Mg Tab.Er.24h PO 60 mg DAILY [facility] Administration Protocol Levothyroxine Sodium 50 mcg 12/30/19 09:00 12/31/19 08:34 Levothyroxine Sodium 50 Mcg Tablet PO 50 mcg DAILY [facility] Administration Pharmacy Consult 1 each 12/29/19 11:02 Consult Rx Perform Med Rec MISCELLANE ONCE PRN Consult order Prednisone 20 mg 12/29/19 18:00 12/31/19 08:34 Prednisone 20 Mg Tablet PO 20 mg DAILY [facility] Administration Sodium Chloride 2 ml 12/30/19 00:00 12/31/19 08:35 0.9 % Sodium Chloride Flush 3 Ml Syringe IVFLUSH 2 ml QSHIFT [facility] Administration Vitamin D 50 mcg 12/30/19 09:00 12/31/19 08:34 Cholecalciferol (Vitamin D3) 25 Mcg Tablet PO 50 mcg DAILY [facility] Administration Labs CBC & Chem 7: 12/31/19 13:37 12/31/19 13:37 Labs: Laboratory Results - last 24 hr 12/30/19 12/30/19 12/31/19 16:34 20:47 07:41 POC Glucose 269 H 257 H 121 H Iron TIBC % Saturation Unsat Iron Binding 10/03/20 09:04 POC Glucose Iron 46 TIBC 218 L % Saturation 21 Unsat Iron Binding 172 Microbiology Microbiology Results: Microbiology 12/29/19 12:06 Blood - Venous Blood Culture - Preliminary No growth after 24 hours. 12/29/19 11:56 Blood - Venous Blood Culture - Preliminary No growth after 24 hours. 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: Status: Acute (3) Anemia: Status: Acute (4) Edema: Status: Acute (5) Generalized edema: Status: Acute (6) COPD exacerbation: Status: Acute Assessment and Plan: 79-year-old female presented with weakness fall and generalized swelling Generalized swelling with significant proteinuria and CKD likely nephrotic syndrome bnp normal received IV Lasix nephrology consulted switched to Bumex continue diuresis monitor intake output monitor kidney function closely mild COPD exacerbation some improvement continue nebulizer treatment and steroids continue oxygen supplementation acute hypoxic respiratory failure continue oxygen supplementation reported to be hypoxic on room air at home in 70s CKD monitor kidney function avoid nephrotoxins diabetes mellitus continue sliding scale insulin DVT prophylaxis heparin s/c
[2019-12-31 13:56] LABS: MANUAL DIFF FLAG NO
[2019-12-31 13:59] LABS: Glucose, Whole Blood 198 mg/dL (60-115)
[2019-12-31 14:01] LABS: Basophils Percent Auto 0.2 % (0-2); Eosinophils Percent Auto 0.3 % (0-4); Hematocrit 30.3 % (37-47); Hemoglobin 9.5 g/dl (12.0-16.0); Imm Gran Abs Auto 0.09 X10*3/uL (0.00-0.03); Imm Gran Pct Auto 0.8 % (0.0-0.4); Lymphocytes Absolute Auto 1.1 X10*3/uL (1.2-4.9); Lymphocytes Percent Auto 9.5 % (20-40); Mean Corpuscular HGB Conc 31.4 g/dl (31.0-35.0); Mean Corpuscular Hemoglobin 26.6 pg (27.0-33.0); Mean Corpuscular Volume 84.9 fL (80-98); Mean Platelet Volume 10.4 fL (9.4-12.3); Monocytes Absolute Auto 0.3 X10*3/uL (0.1-1.2); Monocytes Percent Auto 2.1 % (2-11); Neutrophils Absolute Auto 10.5 X10*3/uL (2.0-8.3); Neutrophils Percent Auto 87.1 % (45-73); Platelet Count 256 X10*3/uL (160-400); Red Blood Count 3.57 X10*6/uL (4.20-5.50); Red Cell Distribution Width 15.7 % (11.0-16.0)
[2019-12-31] MEDS: Insulin Lispro 100 UNIT/ML 3 ML VIAL SUBCUT ×3 (14:02→21:13)
[2019-12-31 14:23] LABS: Anion Gap 16 (12-20); Blood Urea Nitrogen 47 mg/dL (9-16); Calcium 8.4 mg/dL (8.4-10.2); Carbon Dioxide 25 mmol/L (22-29); Chloride 99 mmol/L (96-108); Creatinine Clr Calc Pharmacy 16.9; Estimated Glomerular Filt Rate 16; Glucose Random 306 mg/dL (60-115); Potassium 4.7 mmol/l (3.3-5.1); Sodium 135 mmol/L (135-145)
[2019-12-31 16:42] LABS: Glucose, Whole Blood 368 mg/dL (60-115)
--- NOTE | 2019-12-31 17:54 | PC.NURSE ---
PT POC 368, made aware. Sliding scale 10 units given, no new orders at this time.
[2019-12-31] MEDS: diphenhydrAMINE HCL 50 MG/ML VIAL 12.5 MG IVPUSH (21:14)
[2019-12-31 21:16] LABS: Glucose, Whole Blood 282 mg/dL (60-115)
--- NOTE | 2019-12-31 23:07 | ECG_ITS ---
Test Reason : CHANGE RAPID A FIB Blood Pressure : / mmHG Vent. Rate : 142 BPM Atrial Rate : 144 BPM P-R Int : 000 ms QRS Dur : 084 ms QT Int : 322 ms P-R-T Axes : 000 017 210 degrees QTc Int : 495 ms Atrial fibrillation with rapid ventricular response Marked ST abnormality, possible inferior subendocardial injury Marked ST abnormality, possible anterior subendocardial injury Abnormal ECG When compared with ECG of 29-DEC-2019 11:10, Atrial fibrillation with rapid ventricular response is now Present ST now depressed in Inferior leads ST now depressed in Anterior leads Referred By: Zachery Villarreal Electronically Signed By:BERNARDINO BEAVERS
[2019-12-31] MEDS: Metoprolol Tartrate 5 MG/5 ML VIAL IVPUSH (23:27)
[2020-01-01] VITALS (10 sets, daily range): BP systolic 134–190; BP diastolic 56–74; PULSE 54–93; RESP 16–20; TEMP 36.1–37; O2SAT 95–99; BMI 32.1
[2020-01-01] MEDS: Heparin Sodium,Porcine 5,000 UNIT/ML VIAL 5000 UNIT SUBCUT ×2 (03:16→12:16)
--- NOTE | 2020-01-01 03:25 | PC.NURSE ---
Addendum entered by Fortino Cornell RN 01/01/20 04:53: PT CONVERTED TO SR IN 60S AT 0500. Original Note: PT AMBULATED TO BATHROOM AT 2300 AND WENT INTO RAPID AFIB. HR 130-140S. PT BACK TO BED W NO DECREASE IN HR. EKG SHOWING RAPID AFIB. 5MG IV LOPRESSOR GIVEN. PT CONTINUES TO BE IN AFIB W HR IN HIGH 90S THROUGH MORNING.
[2020-01-01 07:33] LABS: Anion Gap 12 (12-20); Blood Urea Nitrogen 50 mg/dL (9-16); Calcium 8.5 mg/dL (8.4-10.2); Carbon Dioxide 29 mmol/L (22-29); Chloride 102 mmol/L (96-108); Creatinine Clr Calc Pharmacy 20.3; Estimated Glomerular Filt Rate 20; Glucose Random 138 mg/dL (60-115); Potassium 3.9 mmol/l (3.3-5.1); Sodium 139 mmol/L (135-145)
[2020-01-01] MEDS: Albuterol/Iprat 2.5/0.5MG 3 ML AMPUL.NEB INHALE ×3 (07:33→19:44)
[2020-01-01 08:13] LABS: Glucose, Whole Blood 111 mg/dL (60-115)
[2020-01-01] MEDS: Levothyroxine Sodium 50 MCG TABLET PO (08:43)
[2020-01-01] MEDS: Furosemide 40 MG/4 ML VIAL IVPUSH (08:43)
[2020-01-01] MEDS: Ferrous Sulfate 324 MG TABLET.DR PO ×2 (08:43→22:36)
[2020-01-01] MEDS: Isosorbide Mononitrate 60 MG TAB.ER.24H PO (08:43)
[2020-01-01] MEDS: Gabapentin 300 MG CAPSULE PO ×3 (08:43→22:36)
[2020-01-01] MEDS: hydrALAZINE HCl 25 MG TABLET PO (08:44)
[2020-01-01] MEDS: predniSONE 20 MG TABLET PO (08:44)
[2020-01-01] MEDS: 0.9 % Sodium Chloride Flush 3 ML SYRINGE 2 ML IVFLUSH ×2 (08:44→22:37)
[2020-01-01] MEDS: Cholecalciferol (Vitamin D3) 25 MCG TABLET 50 MCG PO (08:49)
[2020-01-01 09:11] LABS: MANUAL DIFF FLAG NO
[2020-01-01 09:18] LABS: Basophils Percent Auto 0.2 % (0-2); Eosinophils Absolute Auto 0.2 X10*3/uL (0.0-0.4); Eosinophils Percent Auto 2.4 % (0-4); Hematocrit 28.8 % (37-47); Hemoglobin 9.3 g/dl (12.0-16.0); Imm Gran Pct Auto 1.1 % (0.0-0.4); Lymphocytes Absolute Auto 2.7 X10*3/uL (1.2-4.9); Lymphocytes Percent Auto 28.2 % (20-40); Mean Corpuscular HGB Conc 32.3 g/dl (31.0-35.0); Mean Corpuscular Hemoglobin 26.8 pg (27.0-33.0); Monocytes Absolute Auto 0.8 X10*3/uL (0.1-1.2); Monocytes Percent Auto 8.3 % (2-11); Neutrophils Absolute Auto 5.6 X10*3/uL (2.0-8.3); Neutrophils Percent Auto 59.8 % (45-73); Platelet Count 258 X10*3/uL (160-400); Red Blood Count 3.47 X10*6/uL (4.20-5.50); Red Cell Distribution Width 15.5 % (11.0-16.0); White Blood Count 9.4 X10*3/uL (4.8-10.8)
[2020-01-01 09:37] LABS: Anion Gap 14 (12-20); Blood Urea Nitrogen 48 mg/dL (9-16); Calcium 8.6 mg/dL (8.4-10.2); Carbon Dioxide 27 mmol/L (22-29); Chloride 102 mmol/L (96-108); Creatinine Clr Calc Pharmacy 20.1; Estimated Glomerular Filt Rate 20; Glucose Random 178 mg/dL (60-115); Potassium 3.8 mmol/l (3.3-5.1); Sodium 139 mmol/L (135-145)
--- NOTE | 2020-01-01 10:13 | PM.PNNEP ---
Subjective Subjective Interval history: patient seen and examined at bedside feels better Physical Exam Vital Signs and I&O and Narrative: Vital Signs and I&O: Vital Signs Temp 97.1 F 01/01/20 07:21 Pulse 60 01/01/20 08:44 Resp 16 01/01/20 07:21 BP 153/74 H 01/01/20 07:21 Pulse Ox 97 01/01/20 07:21 Intake & Output 12/31/19 01/01/20 01/01/20 18:59 06:59 18:59 Intake Total 360 / 600 240 / 600 Output Total 350 / 1150 800 / 1150 Balance 10 / -550 -560 / -550 Urine Output (Aver age ml/kg/hr) 0.33 0.76 0.76 Intake: Intake, Oral Casimiro unt 360 / 600 240 / 600 Output: Output, Urine Am ount 350 / 1150 800 / 1150 Other: Breakfast % Eate n 100% Lunch % Eaten 100% Dinner % Eaten 100% Number of Bowel Movements 1 Urine Bedside Commode Urine Color Yellow Stool Bedside Commode Stool Color Green Stool Consistenc y Semi Formed Body Mass Index 35.6 Const: General: comfortable Orientation/consciousness: oriented to person, oriented to place and oriented to time HENMT: Head: Yes normocephalic and Yes atraumatic Eyes: General: appearance normal, both eyes and all related structures Neck: Neck: Yes supple Resp: Auscultation: diminished lung sounds Cardio: Heart sounds: S1 normal heart sound present and S2 normal heart sound present Neuro: General: oriented to person, oriented to place and oriented to time Extrem: Right upper extremity: edema Assessment & Plan Assessment and plan (1) CKD (chronic kidney disease) stage 3, GFR 30-59 ml/min: Status: Acute (2) Proteinuria due to type 1 diabetes mellitus: Status: Acute (3) Anemia: Status: Acute (4) Edema: Status: Acute Assessment and Plan: kidney function stable known CKD due to biopsy proven diabetic nephropathy history of nephrotic range proteinuria baseline serum creatinine ~ 2 mg/dl echocardiogram in 2019 showed LVEF 60-65% edema in the setting of proteinuria also high dose gabapentin can cause edema blood pressure remains elevated REC changed hydralazine to 50 mg tid continue diuresis consider cut back if serum creatinine continues to rise follow kidney function and electrolytes Time Spent With Patient Time: Total time spent is greater than 50% in coordination of care (as documented) at patient's floor/unit and/or counseling patient:
[2020-01-01 10:38] LABS: Troponin-I High Sensitivity 174.7 ng/L (<3.5-17.0)
--- NOTE | 2020-01-01 10:39 | ECG_ITS ---
Test Reason : ELEVATED TROP Blood Pressure : / mmHG Vent. Rate : 063 BPM Atrial Rate : 063 BPM P-R Int : 154 ms QRS Dur : 082 ms QT Int : 434 ms P-R-T Axes : 031 005 081 degrees QTc Int : 444 ms Sinus rhythm with Premature atrial complexes Otherwise normal ECG When compared with ECG of 31-DEC-2019 23:16, Sinus rhythm has replaced Atrial fibrillation Vent. rate has decreased BY [address] no longer depressed in Inferior leads ST no longer depressed in Anterolateral leads T wave inversion no longer evident in Inferior leads T wave inversion no longer evident in Anterolateral leads Referred By: Zachery Villarreal Electronically Signed By:BERNARDINO BEAVERS
[2020-01-01 12:11] LABS: Glucose, Whole Blood 202 mg/dL (60-115)
[2020-01-01] MEDS: Insulin Lispro 100 UNIT/ML 3 ML VIAL SUBCUT ×3 (12:13→22:37)
[2020-01-01] MEDS: Flu Vacc QS2020-21(6mos up)/PF 0.5 ML SYRINGE IM (12:14)
[2020-01-01 12:48] LABS: Glucose, Whole Blood 253 mg/dL (60-115)
--- NOTE | 2020-01-01 13:04 | PM.EVENT ---
Event Note Event Note: New onset paroxysmal atrial fibrillation controlled with Lopressor. Patient feeling a lot better since being sinus rhythm. Chest pressure and ischemic EKG changes with atrial fibrillation. Will pursue rhythm control approach. Start amiodarone. Also start IV heparin. Reduce carvedilol dose due to lower heart rate. Continue medical management. Echocardiogram tomorrow. Will require inpatient ischemic workup. Continue diuresis for heart failure. Full consult dictated
--- NOTE | 2020-01-01 14:32 | P.PNIM_ITS ---
Subjective Subjective Interval History: patient seen and examined at bedside patient went to into AFib last patient reported chest pain last night no chest pain now Physical Exam Vital Signs and I&O and Narrative: Vital Signs and I&O: Vital Signs Temp 97.8 F 01/01/20 12:00 Pulse 60 01/01/20 12:00 Resp 16 01/01/20 12:00 BP 160/60 H 01/01/20 12:00 Pulse Ox 97 01/01/20 12:00 Intake & Output 12/31/19 01/01/20 01/01/20 18:59 06:59 18:59 Intake Total 360 / 600 240 / 600 280 / 280 Output Total 350 / 1150 800 / 1150 800 / 800 Balance 10 / -550 -560 / -550 -520 / -520 Urine Output (Aver age ml/kg/hr) 0.33 0.76 0.76 Intake: Intake, Oral [place] unt 360 / 600 240 / 600 Intake, Intraper itoneal Amount 280 / 280 Output: Output, Urine Am ount 350 / 1150 800 / 1150 800 / 800 Other: Breakfast % Eate n 100% Lunch % Eaten 100% 100% Dinner % Eaten 100% Number of Bowel Movements 1 Urine Bedside Commode Urine Color Yellow Stool Bedside Commode Stool Color Green Stool Consistenc y Semi Formed Body Mass Index 35.6 Const: General: no acute distress Orientation/consciousness: patient oriented x3 Resp: Auscultation: rales and wheezes Cardio: Rate: regular rate Heart sounds: S1 normal heart sound present and S2 normal heart sound present GI: Inspection: Yes normal to inspection Auscultation: normal bowel sounds Neuro: General: patient oriented x3 Objective Data Current Medications Generic Name Dose Route Start Last Admin Trade Name Freq PRN Reason Stop Dose Admin Albuterol/Ipratropium 3 ml 12/29/19 20:00 01/01/20 13:40 Albuterol/Iprat 2.5/0.5mg 3 Ml Ampul.Neb INHALE 3 ml RQ6H WHILE AWAKE MORIAH Administration Amiodarone HCl 400 mg 01/01/20 21:00 Amiodarone Hcl 200 Mg Tablet PO BID MORIAH Ferrous Sulfate 324 mg 12/29/19 21:00 01/01/20 08:43 Ferrous Sulfate 324 Mg Tablet. PO 324 mg BID MORIAH Administration Furosemide 40 mg 01/01/20 09:00 01/01/20 08:43 Furosemide 40 Mg/4 Ml Vial IVPUSH 40 mg DAILY [facility] Administration Protocol Gabapentin 300 mg 12/29/19 21:00 01/01/20 08:43 Gabapentin 300 Mg Capsule PO 300 mg TID [facility] Administration Heparin Sodium (Porcine) 5,000 unit 12/29/19 20:00 01/01/20 12:16 Heparin Sodium,Porcine 5,000 Unit/Ml Vial SUBCUT 5,000 unit Q8H [facility]ORIA[facility] Administration Hydralazine HCl 50 mg 01/01/20 15:00 Hydralazine Hcl 25 Mg Tablet PO TID [facility] Protocol Insulin Human Lispro 0 unit 12/29/19 21:00 01/01/20 12:13 Insulin Lispro 100 Unit/Ml 3 Ml Vial SUBCUT 4 unit QIDACHS [facility] Administration Protocol Isosorbide Mononitrate 60 mg 12/29/19 17:56 01/01/20 08:43 Isosorbide Mononitrate 60 Mg Tab.Er.24h PO 60 mg DAILY [facility] Administration Protocol Levothyroxine Sodium 50 mcg 12/30/19 09:00 01/01/20 08:43 Levothyroxine Sodium 50 Mcg Tablet PO 50 mcg DAILY [facility] Administration Nitroglycerin 0.5 inch 01/01/20 14:00 Nitroglycerin 2 % Oint 1 Gm Packet TRANSDERMA RQ6H WHILE AWAKE [facility] Pharmacy Consult 1 each 12/29/19 11:02 Consult Rx Perform Med Rec MISCELLANE ONCE PRN Consult order Prednisone 20 mg 12/29/19 18:00 01/01/20 08:44 Prednisone 20 Mg Tablet PO 20 mg DAILY [facility] Administration Sodium Chloride 2 ml 12/30/19 00:00 01/01/20 08:44 0.9 % Sodium Chloride Flush 3 Ml Syringe IVFLUSH 2 ml QSHIFT [facility] Administration Vitamin D 50 mcg 12/30/19 09:00 01/01/20 08:49 Cholecalciferol (Vitamin D3) 25 Mcg Tablet PO 50 mcg DAILY [facility] Administration Labs CBC & Chem 7: 01/01/20 09:05 01/01/20 09:05 Labs: Laboratory Results - last 24 hr 12/31/19 12/31/19 01/01/20 16:38 20:57 05:54 MCV MCH MCHC RDW Plt Count MPV Immature Gran % (Auto) Neut % (Auto) Lymph % (Auto) Boyle % (Auto) Eos % (Auto) Baso % (Auto) Neut # (Auto) Lymph # (Auto) Boyle # (Auto) Eos # (Auto) Baso # (Auto) Abs Immat Gran (auto) Absolute Nucleated RBC Nucleated RBC % (auto) Anion Gap 12 Estim Creat Clear Calc 20.3 Estimated GFR 20 POC Glucose 368 H* 282 H Random Glucose 138 H D Calcium 8.5 Troponin I High Sens 01/01/20 01/01/20 01/01/20 07:20 09:05 09:05 MCV 83.0 MCH 26.8 L MCHC 32.3 RDW 15.5 Plt Count 258 MPV 10.0 Immature Gran % (Auto) 1.1 H Neut % (Auto) 59.8 Lymph % (Auto) 28.2 Boyle % (Auto) 8.3 Eos % (Auto) 2.4 Baso % (Auto) 0.2 Neut # (Auto) 5.6 Lymph # (Auto) 2.7 Boyle # (Auto) 0.8 Eos # (Auto) 0.2 Baso # (Auto) 0.0 Abs Immat Gran (auto) 0.10 H Absolute Nucleated RBC 0.000 Nucleated RBC % (auto) 0.0 Anion Gap 14 Estim Creat Clear Calc 20.1 Estimated GFR 20 POC Glucose 111 Random Glucose 178 H Calcium 8.6 Troponin I High Sens 01/01/20 01/01/20 01/01/20 09:05 12:08 12:40 MCV MCH MCHC RDW Plt Count MPV Immature Gran % (Auto) Neut % (Auto) Lymph % (Auto) Boyle % (Auto) Eos % (Auto) Baso % (Auto) Neut # (Auto) Lymph # (Auto) Boyle # (Auto) Eos # (Auto) Baso # (Auto) Abs Immat Gran (auto) Absolute Nucleated RBC Nucleated RBC % (auto) Anion Gap Estim Creat Clear Calc Estimated GFR POC Glucose 202 H 253 H Random Glucose Calcium Troponin I High Sens 174.7 H D 01/01/20 13:04 MCV MCH MCHC RDW Plt Count MPV Immature Gran % (Auto) Neut % (Auto) Lymph % (Auto) Boyle % (Auto) Eos % (Auto) Baso % (Auto) Neut # (Auto) Lymph # (Auto) Boyle # (Auto) Eos # (Auto) Baso # (Auto) Abs Immat Gran (auto) Absolute Nucleated RBC Nucleated RBC % (auto) Anion Gap Estim Creat Clear Calc Estimated GFR POC Glucose Random Glucose Calcium Troponin I High Sens 155.0 H Microbiology Microbiology Results: Microbiology 12/29/19 15:50 Urine clean catch - Clean Catch Midstream Urine Culture - Final Klebsiella pneumoniae 12/29/19 12:06 Blood - Venous Blood Culture - Preliminary No growth after 48 hours. 12/29/19 11:56 Blood - Venous Blood Culture - Preliminary No growth after 48 hours. Assessment and Plan (1) CKD (chronic kidney disease) stage 3, GFR 30-59 ml/min: Status: Acute (2) Proteinuria due to type 1 diabetes mellitus: Status: Acute (3) Anemia: Status: Acute (4) Edema: Status: Acute (5) Generalized edema: Status: Acute (6) COPD exacerbation: Status: Acute Assessment and Plan: 79-year-old female presented with weakness fall and generalized swelling Generalized swelling with significant proteinuria and CKD likely nephrotic syndrome bnp normal improving received IV Lasix twice daily Lasix dose reduced to daily given increase in creatinine continue IV Lasix 40 mg daily monitor intake output monitor kidney function closely new onset of AFib last night currently heart rate stable on lower side cardiology recommended starting amiodarone 400 mg twice a day and starting heparin drip will stop Coreg now given heart rate on lower side will start on heparin drip monitor H&H closely given anemia chest pain NSTEMIlikely demand mediated secondary to AFib will trend troponin continue medical management cardiology following plan for stress test once more stable mild COPD exacerbation improving continue nebulizer treatment and steroids continue oxygen supplementation acute hypoxic respiratory failure reported to be hypoxic on room air at home in 70s currently off oxygen and saturating well CKD monitor kidney function avoid nephrotoxins diabetes mellitus continue sliding scale insulin DVT prophylaxis heparin s/c
[2020-01-01 15:24] LABS: Prothrombin Time 12.1 SEC (10.8-13.0)
[2020-01-01 15:50] LABS: PTT Heparin Drip 34.2 SEC (53-77.9)
[2020-01-01] MEDS: hydrALAZINE HCl 25 MG TABLET 50 MG PO ×2 (16:08→22:36)
[2020-01-01] MEDS: Heparin Sodium,Porcine/1/2NS 25,000 UNIT/250 ML IV.SOLN 11.17 UNIT IVCONT (16:09)
--- NOTE | 2020-01-01 16:40 | PC.NURSE ---
New order for Heparin GTT. Patient weighed by standing scale for 79.8kg, per protocol start at doserate of 14u/kg/hr. IV pump set to 14u/kg/hr or 11.17ml/hr, witnessed and started at 1410. Within MAY, Heparin order is under 88kg from bed weight taken on admission in ER. Expanse system does not match correct dose on pump. Superuser aware and call placed to pharmacy to see if adjustment could be made within order for correct weight. Unable to change at this time,pharmacist also placing call to there superuser for correction assistance. Supervisor Dials made aware.
[2020-01-01 16:43] LABS: Glucose, Whole Blood 251 mg/dL (60-115)
[2020-01-01 21:19] LABS: Glucose, Whole Blood 262 mg/dL (60-115)
[2020-01-01 22:19] LABS: PTT Heparin Drip 37.3 SEC (53-77.9)
[2020-01-01] MEDS: Amiodarone HCL 200 MG TABLET 400 MG PO (22:35)
[2020-01-01] MEDS: Heparin Sodium,Porcine 5,000 UNIT/ML VIAL 5000 UNIT IVPUSH (22:58)
[2020-01-02] VITALS (13 sets, daily range): BP systolic 160–196; BP diastolic 60–75; PULSE 52–69; RESP 16–18; TEMP 36.4–37; O2SAT 96–98
[2020-01-02 06:16] LABS: Basophils Percent Auto 0.2 % (0-2); PLT CLUMP 1; Red Cell Distribution Width 15.4 % (11.0-16.0); SCAN SMEAR FLAG 1
[2020-01-02 06:18] LABS: Eosinophils Absolute Auto 0.1 X10*3/uL (0.0-0.4); Eosinophils Percent Auto 1.1 % (0-4); Hematocrit 27.7 % (37-47); Imm Gran Abs Auto 0.14 X10*3/uL (0.00-0.03); Imm Gran Pct Auto 1.5 % (0.0-0.4); Lymphocytes Absolute Auto 2.3 X10*3/uL (1.2-4.9); Lymphocytes Percent Auto 24.6 % (20-40); Mean Corpuscular HGB Conc 32.5 g/dl (31.0-35.0); Mean Corpuscular Volume 83.2 fL (80-98); Mean Platelet Volume 11.9 fL (9.4-12.3); Monocytes Absolute Auto 0.9 X10*3/uL (0.1-1.2); Monocytes Percent Auto 9.7 % (2-11); Neutrophils Absolute Auto 5.9 X10*3/uL (2.0-8.3); Neutrophils Percent Auto 62.9 % (45-73); Red Blood Count 3.33 X10*6/uL (4.20-5.50); White Blood Count 9.4 X10*3/uL (4.8-10.8)
[2020-01-02 06:20] LABS: INTERNATIONAL NORM RATIO 0.9 (0.9-1.1); Prothrombin Time 11.1 SEC (10.8-13.0)
[2020-01-02 06:21] LABS: MANUAL DIFF FLAG NO
[2020-01-02 06:44] LABS: Anion Gap 15 (12-20); Blood Urea Nitrogen 55 mg/dL (9-16); Calcium 8.2 mg/dL (8.4-10.2); Carbon Dioxide 25 mmol/L (22-29); Chloride 99 mmol/L (96-108); Creatinine Clr Calc Pharmacy 20.8; Estimated Glomerular Filt Rate 22; Glucose Random 142 mg/dL (60-115); Potassium 3.9 mmol/l (3.3-5.1); Sodium 135 mmol/L (135-145)
[2020-01-02 06:45] LABS: Platelet Count 153 X10*3/uL (160-400)
[2020-01-02] MEDS: Heparin Sodium,Porcine 5,000 UNIT/ML VIAL 5000 UNIT IVPUSH (06:53)
[2020-01-02 07:59] LABS: Glucose, Whole Blood 114 mg/dL (60-115)
[2020-01-02] MEDS: Ferrous Sulfate 324 MG TABLET.DR PO ×2 (08:48→21:55)
[2020-01-02] MEDS: Furosemide 40 MG/4 ML VIAL IVPUSH (08:48)
[2020-01-02] MEDS: Cholecalciferol (Vitamin D3) 25 MCG TABLET 50 MCG PO (08:48)
[2020-01-02] MEDS: Gabapentin 300 MG CAPSULE PO ×3 (08:49→21:54)
[2020-01-02] MEDS: Amiodarone HCL 200 MG TABLET 400 MG PO ×2 (08:49→21:54)
[2020-01-02] MEDS: hydrALAZINE HCl 25 MG TABLET 50 MG PO ×2 (08:49→14:14)
[2020-01-02] MEDS: 0.9 % Sodium Chloride Flush 3 ML SYRINGE 2 ML IVFLUSH ×3 (08:50→21:56)
[2020-01-02] MEDS: Isosorbide Mononitrate 60 MG TAB.ER.24H PO ×2 (08:50→14:14)
[2020-01-02] MEDS: Levothyroxine Sodium 50 MCG TABLET PO (08:50)
[2020-01-02] MEDS: predniSONE 20 MG TABLET PO (08:50)
[2020-01-02] MEDS: Albuterol/Iprat 2.5/0.5MG 3 ML AMPUL.NEB INHALE ×3 (08:53→19:30)
--- NOTE | 2020-01-02 10:24 | P.PNCA_ITS ---
Subjective Subjective Interval history: She is feeling weak and tired. No chest pains today. Remains on heparin drip. Physical Exam Vital Signs and I&O: Vital Signs Temp 97.8 F 01/02/20 07:23 Pulse 55 01/02/20 08:50 Resp 16 01/02/20 07:23 BP 170/60 H 01/02/20 08:50 Pulse Ox 98 01/02/20 04:00 Intake & Output 01/01/20 01/02/20 01/02/20 18:59 06:59 18:59 Intake Total 520 / 807.713 287.713 / 807.713 Output Total 1200 / 2100 900 / 2100 300 / 300 Balance -680 / -1292.287 -612.287 / -1292.287 -300 / -300 Urine Output (Average ml/kg/hr) 1.25 0.94 0.31 Weight 175 lb 15.991 oz Intake: Intake, Oral Amount 240 / 340 100 / 340 Intake, Intraperitoneal Amount 280 / 280 Intake, IV Amount 187.713 / 187.713 Heparin Sodium,Porcine/1/2NS 25 187.713 / 187.713 ,000 unit In 250 ml @ Per Protocol IVCONT .Q0M [facility] Rx#: [id number] Output: Output, Urine Amount 1200 / 2100 900 / 2100 300 / 300 Other: Breakfast % Eaten 100% Lunch % Eaten 100% Dinner % Eaten 100% Number of Bowel Movements 1 Urine Bedside Commode Bedside Commode Bedside Commode Urine Color Yellow Last Bowel Movement 01/02/20 Stool Bedside Commode Body Mass Index 32.1 Const General: cooperative, comfortable and no acute distress Orientation/consciousness: patient oriented x3 HENMT Other: Unremarkable Neck Neck: Yes normal visual inspection Chest Chest palpation & inspection: normal inspection of the chest Resp Other: Diminished breath sounds bilaterally with some scattered crackles Auscultation: wheezes Cardio Other: 2/6 soft systolic murmur Jugular venous distension: no JVD Palpation: normal PMI Heart sounds: S1 normal heart sound present, S2 normal heart sound present, no gallops and no rubs GI Palpation (GI): Soft to palpation Back/Spine/Pelvis Other: unremarkable Skin General skin exam: no rashes or lesions noted Neuro General: patient oriented x3 Extrem General: Yes no clubbing, cyanosis or edema Psych Mental Status: mental status grossly normal Progress Note: A&P Assessment and plan (1) NSTEMI (non-ST elevated myocardial infarction): Status: Acute Assessment and Plan: continue IV heparin drip for 48 hours. Aspirin. Statins. Echocardiogram today. At some point, she will need perfusion imaging. Lung status will need to be optimal before that. Timing to be decided. (2) PAF (paroxysmal atrial fibrillation): Status: Acute Assessment and Plan: Continue amiodarone loading and then we will switch to oral amiodarone. She remains in sinus rhythm on the EKG. Will need to decide on long-term anticoagulation. (3) COPD exacerbation: Status: Acute Assessment and Plan: Per Dr. Fuller. Fall Risk Details Current Medications: Current Medications Generic Name Dose Route Start Last Admin Trade Name Freq PRN Reason Stop Dose Admin Albuterol/Ipratropium 3 ml 12/29/19 20:00 01/02/20 08:53 Albuterol/Iprat 2.5/0.5mg 3 Ml Ampul.Neb INHALE 3 ml RQ6H WHILE AWAKE MORIAH Administration Amiodarone HCl 400 mg 01/01/20 21:00 01/02/20 08:49 Amiodarone Hcl 200 Mg Tablet PO 400 mg BID [facility] Administration Ferrous Sulfate 324 mg 12/29/19 21:00 01/02/20 08:48 Ferrous Sulfate 324 Mg Tablet.Dr PO 324 mg BID [facility] Administration Furosemide 40 mg 01/01/20 09:00 01/02/20 08:48 Furosemide 40 Mg/4 Ml Vial IVPUSH 40 mg DAILY [facility] Administration Protocol Gabapentin 300 mg 12/29/19 21:00 01/02/20 08:49 Gabapentin 300 Mg Capsule PO 300 mg TID [facility] Administration Heparin Sodium (Porcine) 5,000 unit 01/01/20 14:41 01/02/20 06:53 Heparin Sodium,Porcine 5,000 Unit/Ml Vial IVPUSH 5,000 unit BOLUS PRN Administration Based on PTT results Hydralazine HCl 50 mg 01/01/20 15:00 01/02/20 08:49 Hydralazine Hcl 25 Mg Tablet PO 50 mg TID [facility] Administration Protocol Heparin Sodium/Sodium Chloride 25,000 unit in 250 mls @ 0 mls/hr 01/01/20 14:45 01/02/20 06:57 IVCONT 20 units/kg/hr .Q0M [facility]IA[facility] 17.66 mls/hr Titration Protocol Per Protocol Insulin Human Lispro 0 unit 12/29/19 21:00 01/02/20 08:07 Insulin Lispro 100 Unit/Ml 3 Ml Vial SUBCUT Not Given QIDACHS [facility] Protocol Isosorbide Mononitrate 60 mg 12/29/19 17:56 01/02/20 08:50 Isosorbide Mononitrate 60 Mg Tab.Er.24h PO 60 mg DAILY [facility] Administration Protocol Levothyroxine Sodium 50 mcg 12/30/19 09:00 01/02/20 08:50 Levothyroxine Sodium 50 Mcg Tablet PO 50 mcg DAILY [facility] Administration Pharmacy Consult 1 each 12/29/19 11:02 Consult Rx Perform Med Rec MISCELLANE ONCE PRN Consult order Prednisone 20 mg 12/29/19 18:00 01/02/20 08:50 Prednisone 20 Mg Tablet PO 20 mg DAILY [facility] Administration Sodium Chloride 2 ml 12/30/19 00:00 01/02/20 08:50 0.9 % Sodium Chloride Flush 3 Ml Syringe IVFLUSH 2 ml QSHIFT [facility] Administration Vitamin D 50 mcg 12/30/19 09:00 01/02/20 08:48 Cholecalciferol (Vitamin D3) 25 Mcg Tablet PO 50 mcg DAILY [facility] Administration Time Spent With Patient Time: Total time spent is greater than 50% in coordination of care (as documented) at patient's floor/unit and/or counseling patient: Time with patient: 15 - 24 minutes
--- NOTE | 2020-01-02 10:49 | P.PNNP_ITS ---
Subjective Subjective Interval history: She is feeling weak and tired. No chest pains today. Remains on heparin drip. Overall feeling better but still SOB Physical Exam Vital Signs and I&O and Narrative: Vital Signs and I&O: Vital Signs Temp 97.8 F 01/02/20 07:23 Pulse 55 01/02/20 08:50 Resp 16 01/02/20 07:23 BP 170/60 H 01/02/20 08:50 Pulse Ox 98 01/02/20 04:00 Intake & Output 01/01/20 01/02/20 01/02/20 18:59 06:59 18:59 Intake Total 520 / 807.713 287.713 / 807.713 Output Total 1200 / 2100 900 / 2100 300 / 300 Balance -680 / -1292.287 -612.287 / -1292.2 87 -300 / -300 Urine Output (Aver age ml/kg/hr) 1.25 0.94 0.31 Weight 79.832 kg Intake: Intake, Oral [place] unt 240 / 340 100 / 340 Intake, Intraper itoneal Amount 280 / 280 Intake, IV Amoun t 187.713 / 187.713 Heparin Sodium ,Porcine/1/2NS 25 187.713 / 187.713 ,000 unit In 2 50 ml @ Per Protocol IVCON T .Q0M [facility] Rx#: [id number] Output: Output, Urine Am ount 1200 / 2100 900 / 2100 300 / 300 Other: Breakfast % Eate n 100% Lunch % Eaten 100% Dinner % Eaten 100% Number of Bowel Movements 1 Urine Bedside Commode Bedside Commode Bedside Commode Urine Color Yellow Last Bowel Movem ent 01/02/20 Stool Bedside Commode Body Mass Index 32.1 Const: General: comfortable and awake HENMT: Head: Yes normal to inspection Chest: Chest palpation & inspection: normal inspection of the chest Resp: Effort & Inspection: normal respiratory effort Auscultation: diminished lung sounds Cardio: Jugular venous distension: no JVD Rhythm: regular rhythm Extrem: Left lower extremity: edema Details: 1+ Assessment & Plan Assessment and plan (1) PAF (paroxysmal atrial fibrillation): Status: Acute (2) NSTEMI (non-ST elevated myocardial infarction): Status: Acute (3) Proteinuria due to type 1 diabetes mellitus: Status: Acute (4) CKD (chronic kidney disease) stage 3, GFR 30-59 ml/min: Status: Acute (5) Anemia: Status: Acute (6) COPD exacerbation: Status: Acute (7) Generalized edema: Status: Acute (8) Acute dyspnea: Status: Acute Assessment and Plan: improved with diuresis (9) Edema: Status: Acute Assessment and Plan: improved with diuresis (10) Weakness: Status: Acute Assessment and Plan: ASSESSMENT AND PLAN CKD 3: stable and c/w DN with prior kidney Bx c/w DN; need to r/o myeloma gven h/o anemia TBFOL: remain vol OL but diureising..net neg 1200 past 24 hrs Anemia: ques Fe/Epo def DM REC: cont diuresis with current diuretic regiment; check FE stores and Immunofix I ordered; protect non-dominat arm for future AVF; adust meds for GFR 20- 25ml/min Time Spent With Patient Time: Total time spent is greater than 50% in coordination of care (as documented) at patient's floor/unit and/or counseling patient:
--- NOTE | 2020-01-02 11:00 | CA_ITS ---
Transthoracic Echocardiogram Patient (Last, First, Middle): Marielena Medina C Gender: Female Date of : 1940 Age: 79 Procedure Date: 01/02/2020 Procedure Type: Transthoracic Echocardiogram Location: [facility] [place] Height: 157.48 cm Weight: 77.11 kg BSA: 1.78 m2 Heart Rate: bpm BP: 186 / 66 mmHg Bacteriology Teacher: Referring MD: Art Germain MD Symptoms: [facility] [place] Study Quality: Fair ECG Rhythm: Sinus Conclusions: - The left ventricular systolic function is hyperdynamic. The visually estimated ejection fraction is >70%. - The basal inferior segment is hypokinetic. - No obvious valvular pathology seen on this study. Findings Left Ventricle Normal left ventricular cavity size. There is mildly increased left ventricular wall thickness. The left ventricular systolic function is hyperdynamic. The visually estimated ejection fraction is >70%. The calculated ejection fraction is 71% by biplane method. There is no evidence of regional wall motion abnormalities. E/E prime ratio is >15, consistent with elevated filling pressures. Evidence suggests grade I (mild) diastolic dysfunction. Wall Motion Rest Echo Findings The basal inferior segment is hypokinetic. Right Ventricle Normal right ventricular cavity size and systolic function. Atria The left atrium is mildly dilated. The right atrium is normal in size. Aortic Valve The aortic valve was not well visualized. There is a normal trileaflet aortic valve. There is no aortic valve stenosis. There is trace (trivial) aortic valve regurgitation. Mitral Valve The mitral valve appears normal. There is trace mitral valve regurgitation. There is no mitral valve stenosis. Pulmonic Valve The pulmonic valve was not well visualized. Tricuspid Valve Normal tricuspid valve structure. There is trace tricuspid valve regurgitation. The pulmonary artery systolic pressure is normal. Great Vessels The aortic annulus, sinuses of valsalva, and asc aorta are normal in size. Venous The inferior vena cava is normal in size and collapses greater than 50% with inspiration. Pericardium/Pleural There is no evidence of pericardial effusion. Prior Study Comparison Changes noted compared to prior study dated: 07/06/2018. See comments on wall motion. Recommendations, Care & Conclusions No obvious valvular pathology seen on this study. Measurements 2D Linear Measurements IVSd: 1.62 0.6-0.9/0.6-1.0 cm LVIDd: 3.07 3.9-5.3/4.2-5.9 cm LVIDd Index: 1.72 2.4-3.2/2.2-3.1 cm/m2 LVIDs: 2.17 2.0-3.6 cm LVPWd: 1.55 0.7-1.1 cm Ao Root: 2.90 2.1-3.5 cm LA Diam: 3.90 2.7-3.8/3.0-4.0 cm LAIDs Index: 2.19 1.5-2.3 cm/m2 LV Mass: 222.60 67-162/88-224 g LV Mass Index: 125.05 43-95/49-115 g/m2 LVOT Diam: 1.90 3.0+(-)1.3 cm 2D Systolic Function EF 4C: 70.70 >55% EF 2C: 70.10 >55% EF BiP: 70.80 >55% Mitral Valve MV Pk E: 0.89 MV PK A: 1.23 MV Decel Time: 338.00 E/A: 0.70 E'Lateral: 5.22 E'Medial: 5.80 E/E' Med: 15.30 E/E' Lat: 17.00 PHT: 99.00 MVA PHT: 2.22 Decel Gates: 2.63 Aortic Valve AoV Pk Greg: 2.20 AoV Mn Greg: 1.47 AoV VTI: 0.51 AoV Pk Grad: 19.00 Aov Mn Grad: 10.00 CHRISTOPHER Cont.VTI: 1.66 LVOT LVOT Pk Greg: 1.06 LVOT Mn Greg: 0.83 LVOT VTI: 0.30 LVOT Pk Grad: 4.00 LVOT Mn Grad: 3.00 LVOT Diam: 1.90 LVOT Area: 2.84 Diastolic Function MV Pk E: 0.89 MV Pk A: 1.23 E/A: 0.70 E'Medial: 5.80 E/E' Med: 15.30 E' Laterial: 5.22 E/E' Lat: 17.00 Tricuspid Valve TR Pk Greg: 2.16 TR Pk Grad: 19.00 RA Press: 3.00 RVSP: 23.00 Great Vessels Aorta Ao Root-2D: 2.90 2.0-3.7 cm Pulmonary Valve PV Pk Greg: 1.40 Peak PV Grad: 8.00 Updated in Other Vendor System with Status of Final Art Germain MD electronically signed on 01/02/2020 4:56:36 PM with status of Final
[2020-01-02 11:44] LABS: Glucose, Whole Blood 201 mg/dL (60-115)
[2020-01-02] MEDS: Aspirin Enteric Coated 81 MG TABLET.DR PO (12:02)
--- NOTE | 2020-01-02 12:43 | MHC.CM.PN ---
PER MULTI DIS ROUNDS PT MAY BE TRANSFERRED TO [facility]
--- NOTE | 2020-01-02 12:44 | PM.PNCARD ---
Subjective Subjective Interval history: She is feeling weak and tired. No chest pains today. Overall feeling better. Physical Exam Vital Signs and I&O: Vital Signs Temp 97.9 F 01/02/20 11:07 Pulse 61 01/02/20 11:07 Resp 18 01/02/20 11:07 BP 160/70 H 01/02/20 11:07 Pulse Ox 98 01/02/20 04:00 Intake & Output 01/01/20 01/02/20 01/02/20 18:59 06:59 18:59 Intake Total 520 / 807.713 287.713 / 807.713 Output Total 1200 / 2100 900 / 2100 900 / 900 Balance -680 / -1292.287 -612.287 / -1292.287 -900 / -900 Urine Output (Average ml/kg/hr) 1.25 0.94 0.94 Weight 175 lb 15.991 oz Intake: Intake, Oral Amount 240 / 340 100 / 340 Intake, Intraperitoneal Amount 280 / 280 Intake, IV Amount 187.713 / 187.713 Heparin Sodium,Porcine/1/2NS 25 187.713 / 187.713 ,000 unit In 250 ml @ Per Protocol IVCONT .Q0M [facility] Rx#: [id number] Output: Output, Urine Amount 1200 / 2100 900 / 2100 900 / 900 Other: Breakfast % Eaten 100% Lunch % Eaten 100% Dinner % Eaten 100% Number of Bowel Movements 1 Urine Bedside Commode Bedside Commode Bedside Commode Urine Color Yellow Last Bowel Movement 01/02/20 Stool Bedside Commode Body Mass Index 32.1 Const General: cooperative, comfortable and no acute distress Orientation/consciousness: patient oriented x3 HENMT Other: Unremarkable Neck Neck: Yes normal visual inspection Chest Chest palpation & inspection: normal inspection of the chest Resp Other: Diminished breath sounds bilaterally with some scattered crackles Auscultation: wheezes Cardio Other: 2/6 soft systolic murmur Jugular venous distension: no JVD Palpation: normal PMI Heart sounds: S1 normal heart sound present, S2 normal heart sound present, no gallops and no rubs GI Palpation (GI): Soft to palpation Back/Spine/Pelvis Other: unremarkable Skin General skin exam: no rashes or lesions noted Neuro General: patient oriented x3 Extrem General: Yes no clubbing, cyanosis or edema Psych Mental Status: mental status grossly normal Progress Note: A&P Assessment and plan (1) NSTEMI (non-ST elevated myocardial infarction): Status: Acute Assessment and Plan: Stop IV Heparin after 48 hours. Aspirin. Statins. At some point, she will need perfusion imaging. Lung status will need to be optimal before that. Timing to be decided. (2) PAF (paroxysmal atrial fibrillation): Status: Acute Assessment and Plan: Continue amiodarone loading and then we will switch to maintenance amiodarone. She remains in sinus rhythm on the EKG. As the duration of atrial fibrillation was only 6 hours, no need for long-term anticoagulation at this time unless she has recurrent episodes of the same. Outpatient Holter or event monitor will be arranged. (3) COPD exacerbation: Status: Acute Assessment and Plan: Per Dr. Fuller. Fall Risk Details Current Medications: Current Medications Generic Name Dose Route Start Last Admin Trade Name Freq PRN Reason Stop Dose Admin Albuterol/Ipratropium 3 ml 12/29/19 20:00 01/02/20 08:53 Albuterol/Iprat 2.5/0.5mg 3 Ml Ampul.Neb INHALE 3 ml RQ6H WHILE AWAKE [facility]IA[facility] Administration Amiodarone HCl 400 mg 01/01/20 21:00 01/02/20 08:49 Amiodarone Hcl 200 Mg Tablet PO 400 mg BID [facility] Administration Aspirin 81 mg 01/02/20 10:35 01/02/20 12:02 Aspirin Enteric Coated 81 Mg Tablet. PO 81 mg DAILY [facility] Administration Ferrous Sulfate 324 mg 12/29/19 21:00 01/02/20 08:48 Ferrous Sulfate 324 Mg Tablet. PO 324 mg BID [facility] Administration Furosemide 40 mg 01/01/20 09:00 01/02/20 08:48 Furosemide 40 Mg/4 Ml Vial IVPUSH 40 mg DAILY [facility] Administration Protocol Gabapentin 300 mg 12/29/19 21:00 01/02/20 08:49 Gabapentin 300 Mg Capsule PO 300 mg TID [facility] Administration Heparin Sodium (Porcine) 5,000 unit 01/01/20 14:41 01/02/20 06:53 Heparin Sodium,Porcine 5,000 Unit/Ml Vial IVPUSH 5,000 unit BOLUS PRN Administration Based on PTT results Hydralazine HCl 50 mg 01/01/20 15:00 01/02/20 08:49 Hydralazine Hcl 25 Mg Tablet PO 50 mg TID [facility] Administration Protocol Heparin Sodium/Sodium Chloride 25,000 unit in 250 mls @ 0 mls/hr 01/01/20 14:45 01/02/20 06:57 IVCONT 20 units/kg/hr .Q0M [facility] 17.66 mls/hr Titration Protocol Per Protocol Insulin Human Lispro 0 unit 12/29/19 21:00 01/02/20 08:07 Insulin Lispro 100 Unit/Ml 3 Ml Vial SUBCUT Not Given QIDACHS [facility] Protocol Isosorbide Mononitrate 60 mg 12/29/19 17:56 01/02/20 08:50 Isosorbide Mononitrate 60 Mg Tab.Er.24h PO 60 mg DAILY [facility] Administration Protocol Levothyroxine Sodium 50 mcg 12/30/19 09:00 01/02/20 08:50 Levothyroxine Sodium 50 Mcg Tablet PO 50 mcg DAILY [facility] Administration Pharmacy Consult 1 each 12/29/19 11:02 Consult Rx Perform Med Rec MISCELLANE ONCE PRN Consult order Prednisone 20 mg 12/29/19 18:00 01/02/20 08:50 Prednisone 20 Mg Tablet PO 20 mg DAILY [facility] Administration Sodium Chloride 2 ml 12/30/19 00:00 01/02/20 08:50 0.9 % Sodium Chloride Flush 3 Ml Syringe IVFLUSH 2 ml QSHIFT [facility] Administration Vitamin D 50 mcg 12/30/19 09:00 01/02/20 08:48 Cholecalciferol (Vitamin D3) 25 Mcg Tablet PO 50 mcg DAILY [facility] Administration Time Spent With Patient Time: Total time spent is greater than 50% in coordination of care (as documented) at patient's floor/unit and/or counseling patient: Time with patient: 15 - 24 minutes
[2020-01-02] MEDS: Insulin Lispro 100 UNIT/ML 3 ML VIAL SUBCUT ×3 (12:52→21:56)
[2020-01-02] MEDS: Heparin Sodium,Porcine/1/2NS 25,000 UNIT/250 ML IV.SOLN 17.66 UNIT IVCONT (13:29)
[2020-01-02 13:50] LABS: PTT Heparin Drip > 200.0 SEC (53-77.9)
[2020-01-02 15:24] LABS: PTT Heparin Drip > 200.0 SEC (53-77.9)
--- NOTE | 2020-01-02 16:46 | P.PNIM_ITS ---
Subjective Subjective Date of Service: 01/02/20 Interval History: Seen and examined this AM SOB improving chest pain resolved seen again this afternoon with bedside. all questions answered Review of Systems General - no fevers or chills Cardiovascular no chest pain Lungs shortness of breath, improving;Denies cough Abdomen -- no abdominal pain or nausea/vomiting Physical Exam Vital Signs and I&O and Narrative: Vital Signs and I&O: Vital Signs Temp 97.7 F 01/02/20 16:00 Pulse 69 01/02/20 16:00 Resp 18 01/02/20 16:00 BP 180/60 H 01/02/20 16:00 Pulse Ox 98 01/02/20 04:00 Intake & Output 01/01/20 01/02/20 01/02/20 18:59 06:59 18:59 Intake Total 520 / 807.713 287.713 / 807.713 62.287 / 62.287 Output Total 1200 / 2100 900 / 2100 900 / 900 Balance -680 / -1292.287 -612.287 / -1292.2 87 -837.713 / -837.71 3 Urine Output (Aver age ml/kg/hr) 1.25 0.94 0.94 Weight 79.832 kg Intake: Intake, Oral Bath unt 240 / 340 100 / 340 Intake, Intraper itoneal Amount 280 / 280 Intake, IV Amoun t 187.713 / 187.713 62.287 / 62.287 Heparin Sodium ,Porcine/1/2NS 25 187.713 / 187.713 62.287 / 62.287 ,000 unit In 2 50 ml @ Per Protocol IVCON T .Q0M [facility] Rx#: [id number] Output: Output, Urine Am ount 1200 / 2100 900 / 2100 900 / 900 Other: Breakfast % Eate n 100% Lunch % Eaten 100% Dinner % Eaten 100% Number of Bowel Movements 1 Urine Bedside Commode Bedside Commode Bedside Commode Urine Color Yellow Last Bowel Movem ent 01/02/20 Stool Bedside Commode Body Mass Index 32.1 general, no acute distress Cardiovascular, S1-S2 -- Lower extremity edema improved Lungs - no respiratory distress, scattered wheezing/rales Abdomen-- soft nontender Extremities-- swelling improved Neuro - A&O x3 Objective Data Current Medications Generic Name Dose Route Start Last Admin Trade Name Freq PRN Reason Stop Dose Admin Albuterol/Ipratropium 3 ml 12/29/19 20:00 01/02/20 15:24 Albuterol/Iprat 2.5/0.5mg 3 Ml Ampul.Neb INHALE 3 ml RQ6H WHILE AWAKE [facility] Administration Amiodarone HCl 400 mg 01/01/20 21:00 01/02/20 08:49 Amiodarone Hcl 200 Mg Tablet PO 400 mg BID [facility] Administration Aspirin 81 mg 01/02/20 10:35 01/02/20 12:02 Aspirin Enteric Coated 81 Mg Tablet. PO 81 mg DAILY [facility] Administration Ferrous Sulfate 324 mg 12/29/19 21:00 01/02/20 08:48 Ferrous Sulfate 324 Mg Tablet. PO 324 mg BID [facility] Administration Furosemide 40 mg 01/01/20 09:00 01/02/20 08:48 Furosemide 40 Mg/4 Ml Vial IVPUSH 40 mg DAILY [facility] Administration Protocol Gabapentin 300 mg 12/29/19 21:00 01/02/20 14:14 Gabapentin 300 Mg Capsule PO 300 mg TID [facility] Administration Heparin Sodium (Porcine) 5,000 unit 01/01/20 14:41 01/02/20 06:53 Heparin Sodium,Porcine 5,000 Unit/Ml Vial IVPUSH 5,000 unit BOLUS PRN Administration Based on PTT results Hydralazine HCl 50 mg 01/01/20 15:00 01/02/20 14:14 Hydralazine Hcl 25 Mg Tablet PO 50 mg TID [facility] Administration Protocol Heparin Sodium/Sodium Chloride 25,000 unit in 250 mls @ 0 mls/hr 01/01/20 14:45 01/02/20 13:29 IVCONT 20 units/kg/hr .Q0M [facility] 17.66 mls/hr Administration Protocol Per Protocol Insulin Human Lispro 0 unit 12/29/19 21:00 01/02/20 12:52 Insulin Lispro 100 Unit/Ml 3 Ml Vial SUBCUT 4 unit QIDACHS [facility] Administration Protocol Isosorbide Mononitrate 120 mg 01/03/20 09:00 Isosorbide Mononitrate 60 Mg Tab.Er.24h PO DAILY [facility] Protocol Levothyroxine Sodium 50 mcg 12/30/19 09:00 01/02/20 08:50 Levothyroxine Sodium 50 Mcg Tablet PO 50 mcg DAILY [facility] Administration Pharmacy Consult 1 each 12/29/19 11:02 Consult Rx Perform Med Rec MISCELLANE ONCE PRN Consult order Prednisone 20 mg 12/29/19 18:00 01/02/20 08:50 Prednisone 20 Mg Tablet PO 20 mg DAILY [facility] Administration Sodium Chloride 2 ml 12/30/19 00:00 01/02/20 08:50 0.9 % Sodium Chloride Flush 3 Ml Syringe IVFLUSH 2 ml QSHIFT [facility] Administration Vitamin D 50 mcg 12/30/19 09:00 01/02/20 08:48 Cholecalciferol (Vitamin D3) 25 Mcg Tablet PO 50 mcg DAILY [facility] Administration Labs CBC & Chem 7: 01/02/20 05:30 01/02/20 05:29 Labs: Laboratory Results - last 24 hr 01/01/20 01/01/20 01/02/20 21:05 22:04 05:29 MCV MCH MCHC RDW Plt Count MPV Immature Gran % (Auto) Neut % (Auto) Lymph % (Auto) [place] % (Auto) Eos % (Auto) Baso % (Auto) Neut # (Auto) Lymph # (Auto) [place] # (Auto) Eos # (Auto) Baso # (Auto) Abs Immat Gran (auto) Absolute Nucleated RBC Nucleated RBC % (auto) PT INR PTT (Heparin Protocol) 37.3 L Anion Gap 15 Estim Creat Clear Calc 20.8 Estimated GFR 22 POC Glucose 262 H Random Glucose 142 H Calcium 8.2 L 01/02/20 01/02/20 01/02/20 05:30 05:30 05:30 MCV 83.2 MCH 27.0 MCHC 32.5 RDW 15.4 Plt Count 153 L D MPV 11.9 Immature Gran % (Auto) 1.5 H Neut % (Auto) 62.9 Lymph % (Auto) 24.6 [place] % (Auto) 9.7 Eos % (Auto) 1.1 Baso % (Auto) 0.2 Neut # (Auto) 5.9 Lymph # (Auto) 2.3 [place] # (Auto) 0.9 Eos # (Auto) 0.1 Baso # (Auto) 0.0 Abs Immat Gran (auto) 0.14 H Absolute Nucleated RBC 0.000 Nucleated RBC % (auto) 0.0 PT 11.1 INR 0.9 PTT (Heparin Protocol) 26.0 L D Anion Gap Estim Creat Clear Calc Estimated GFR POC Glucose Random Glucose Calcium 01/02/20 01/02/20 01/02/20 07:23 11:06 13:00 MCV MCH MCHC RDW Plt Count MPV Immature Gran % (Auto) Neut % (Auto) Lymph % (Auto) [place] % (Auto) Eos % (Auto) Baso % (Auto) Neut # (Auto) Lymph # (Auto) [place] # (Auto) Eos # (Auto) Baso # (Auto) Abs Immat Gran (auto) Absolute Nucleated RBC Nucleated RBC % (auto) PT INR PTT (Heparin Protocol) > 200.0 H* D Anion Gap Estim Creat Clear Calc Estimated GFR POC Glucose 114 201 H Random Glucose Calcium 01/02/20 14:35 MCV MCH MCHC RDW Plt Count MPV Immature Gran % (Auto) Neut % (Auto) Lymph % (Auto) [place] % (Auto) Eos % (Auto) Baso % (Auto) Neut # (Auto) Lymph # (Auto) [place] # (Auto) Eos # (Auto) Baso # (Auto) Abs Immat Gran (auto) Absolute Nucleated RBC Nucleated RBC % (auto) PT INR PTT (Heparin Protocol) > 200.0 H* Anion Gap Estim Creat Clear Calc Estimated GFR POC Glucose Random Glucose Calcium Microbiology Microbiology Results: Microbiology 12/29/19 15:50 Urine clean catch - Clean Catch Midstream Urine Culture - Final Klebsiella pneumoniae 12/29/19 12:06 Blood - Venous Blood Culture - Preliminary No growth after 48 hours. 12/29/19 11:56 Blood - Venous Blood Culture - Preliminary No growth after 48 hours. Progress Note: A&P (1) NSTEMI (non-ST elevated myocardial infarction): Status: Acute (2) CKD (chronic kidney disease) stage 3, GFR 30-59 ml/min: Status: Acute (3) COPD exacerbation: Status: Acute (4) Urinary tract infection: Status: Acute (5) Atrial fibrillation with rapid ventricular response: Status: Acute Assessment and Plan: this is a 79-year-old female who presented to the hospital with weakness, fall and generalized swelling 1. anasarca / CKD, stage III/4 Likely secondary to nephrotic syndrome Improved with IV diuresis, Lasix has been changed to 40 mg daily will continue Strict intake and output Monitor kidney function Nephrology is on board 2. new onset atrial fibrillation Now in sinus On amnio, will continue 3. NSTEMI heparin drip for 48 hours Continue aspirin statin initiated 4. Uncontrolled hypertension Imdur increased from 60 to 120 this morning. Blood pressure remains difficult to control. Will increase hydralazine to 100 mg 3 times a day. 5. COPD exacerbation / acute Respiratory failure with hypoxia significant improvement Prednisone 20 mg for few more days Continue updrafts Low O2 as needed 6. Diabetes mellitus continue sliding-scale full code DVT prophylaxis, on IV heparin for NSTEMI
[2020-01-02 16:51] LABS: Glucose, Whole Blood 306 mg/dL (60-115)
[2020-01-02 17:18] LABS: PTT Heparin Drip > 200.0 SEC (53-77.9)
[2020-01-02] MEDS: cefTRIAXone sodium 1 GM in 0.9 % Sodium Chloride 50 ML IV (18:48)
[2020-01-02 21:06] LABS: PTT Heparin Drip 77.9 SEC (53-77.9)
[2020-01-02 21:43] LABS: Glucose, Whole Blood 320 mg/dL (60-115)
[2020-01-02] MEDS: hydrALAZINE HCl 25 MG TABLET 100 MG PO (21:55)
[2020-01-02] MEDS: Atorvastatin Calcium 80 MG TABLET PO (21:56)
[2020-01-02] MEDS: Heparin Sodium,Porcine/1/2NS 25,000 UNIT/250 ML IV.SOLN 14.13 UNIT IVCONT (22:12)
[2020-01-03] VITALS (7 sets, daily range): BP systolic 180–186; BP diastolic 55–89; PULSE 59–69; RESP 18–20; TEMP 36.4–36.7; O2SAT 95–99
[2020-01-03 02:57] LABS: Glucose Urine UA 250 MG/DL (NEG); Leukocyte Esterase Urine NEG (NEG); Nitrite Urine NEG (NEG); Urine Blood NEG (NEG); Urine Ketones NEG (NEG); Urine Protein 3+ MG/DL (NEG-TRACE)
[2020-01-03 03:00] LABS: Appearance Urine CLEAR; Color Urine STRAW
[2020-01-03 03:18] LABS: Bacteria Urine TRACE /LPF; Granular Casts Urine 0-2 /LPF; RBC Urine 0-2 /HPF (0); Squamous Epithelial Cell Urine TRACE /LPF
[2020-01-03 04:24] LABS: PTT Heparin Drip > 200.0 SEC (53-77.9)
[2020-01-03 06:34] LABS: MANUAL DIFF FLAG NO
[2020-01-03 06:54] LABS: Basophils Percent Auto 0.2 % (0-2); Eosinophils Absolute Auto 0.1 X10*3/uL (0.0-0.4); Hematocrit 27.8 % (37-47); Hemoglobin 8.9 g/dl (12.0-16.0); Imm Gran Abs Auto 0.44 X10*3/uL (0.00-0.03); Imm Gran Pct Auto 3.7 % (0.0-0.4); Lymphocytes Absolute Auto 2.7 X10*3/uL (1.2-4.9); Lymphocytes Percent Auto 22.8 % (20-40); Mean Corpuscular Hemoglobin 26.6 pg (27.0-33.0); Mean Platelet Volume 10.8 fL (9.4-12.3); Monocytes Absolute Auto 1.1 X10*3/uL (0.1-1.2); Monocytes Percent Auto 9.5 % (2-11); Neutrophils Absolute Auto 7.5 X10*3/uL (2.0-8.3); Neutrophils Percent Auto 62.8 % (45-73); Platelet Count 252 X10*3/uL (160-400); Red Blood Count 3.35 X10*6/uL (4.20-5.50); Red Cell Distribution Width 15.3 % (11.0-16.0); White Blood Count 11.9 X10*3/uL (4.8-10.8)
[2020-01-03 07:17] LABS: PTT Heparin Drip > 200.0 SEC (53-77.9)
[2020-01-03] MEDS: Albuterol/Iprat 2.5/0.5MG 3 ML AMPUL.NEB INHALE ×3 (07:21→19:30)
[2020-01-03 07:40] LABS: Anion Gap 16 (12-20); Blood Urea Nitrogen 67 mg/dL (9-16); Calcium 8.6 mg/dL (8.4-10.2); Carbon Dioxide 26 mmol/L (22-29); Chloride 101 mmol/L (96-108); Creatinine Clr Calc Pharmacy 18.3; Estimated Glomerular Filt Rate 19; Glucose Fasting 181 mg/dL (60-99); Potassium 3.9 mmol/l (3.3-5.1); Sodium 139 mmol/L (135-145)
[2020-01-03 07:42] LABS: Iron 64 mcg/dL (30-160); Percent Iron Saturation 28 % (15-50); Total Iron Binding Capacity 231 mcg/dL (228-428); Unsaturated Iron Binding 167 ug/dL
[2020-01-03 08:07] LABS: Glucose, Whole Blood 151 mg/dL (60-115)
--- NOTE | 2020-01-03 09:21 | PC.NURSE ---
Addendum entered by Esme Steele RN 01/03/20 11:22: PTHD back low at 48.4. MD made aware, verbal order to hold heparin drip restart and bolus for now, will consult with senior cytotechnologist to DC drip. Original Note: PTHD ordered for 0530-Recieved call from chemistry at 0730 with critically high value PTHD >200, per protocol hold drip and obtain PTHD Q1 hour until PTHD <93. PTHD ordered for 829, call placed to phlebotomy for draw at 0920 RN was unable to see result, draw for 0830 was not obtained. Phlebotomy on unit 0930 to draw PTHD. MD aware of critical, senior cytotechnologist stated will DC heparin drip, awaiting those orders.
--- NOTE | 2020-01-03 09:45 | P.PNNP_ITS ---
Subjective Subjective Interval history: Seen and examined this AM SOB improving chest pain resolved gem uncomfortable Physical Exam Vital Signs and I&O and Narrative: Vital Signs and I&O: Vital Signs Temp 98.0 F 01/03/20 07:51 Pulse 60 01/03/20 07:51 Resp 20 01/03/20 07:51 BP 180/63 H 01/03/20 07:51 Pulse Ox 99 01/03/20 07:51 Intake & Output 01/02/20 01/03/20 01/03/20 18:59 06:59 18:59 Intake Total 182.287 / 837.597 655.310 / 837.597 Output Total 900 / 1800 900 / 1800 Balance -717.713 / -962.40 3 -244.690 / -962.40 3 Urine Output (Aver age ml/kg/hr) 0.94 0.63 Intake: Intake, Oral Casimiro unt 120 / 480 360 / 480 Intake, IV Amoun t 62.287 / 357.597 295.310 / 357.597 cefTRIAXone so dium 1 gm In 0.9 50 / 50 % Sodium Chlor con 50 ml @ 100 mls/hr IV Q24H [facility] Rx#: [id number] Heparin Sodium ,Porcine/1/2NS 25 62.287 / 307.597 245.310 / 307.597 ,000 unit In 2 50 ml @ Per Protocol IVCON T .Q0M [facility] Rx#: [id number] Output: Output, Urine Am ount 900 / 1500 600 / 1500 Output, Stool Am ount 300 / 300 Other: Dinner % Eaten 100% Number of Bowel Movements 1 1 Urine Bedside Commode Bedside Commode Urine Color Pale Yellow Last Bowel Movem ent 01/02/20 01/02/20 Stool Bedside Commode Bedside Commode Stool Color Green Stool Consistenc y Pasty Body Mass Index 32.1 general, no acute distress Cardiovascular, S1-S2 -- Lower extremity edema improved Lungs - no respiratory distress, scattered wheezing/rales Abdomen-- soft nontender Extremities-- swelling improved Neuro - A&O x3 Laboratory Tests 11/24/19 01/02/20 01/03/20 05:27 05:29 05:27 Creatinine 1.88 H 2.14 H 2.44 H Assessment & Plan Assessment and plan (1) Atrial fibrillation with rapid ventricular response: Status: Acute (2) Urinary tract infection: Status: Acute (3) PAF (paroxysmal atrial fibrillation): Status: Acute (4) NSTEMI (non-ST elevated myocardial infarction): Status: Acute (5) 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 TBFOL: remain vol OL but diureising..net neg 1800 past 24 hrs 3. Anemia: Epo def 4. DM REC: cont diuresis with current diuretic regiment; start procrit ( I will order) ; Immunofix pending; protect non-dominat arm for future AVF; adust meds for GFR 20-25ml/min Time Spent With Patient Time: Total time spent is greater than 50% in coordination of care (as do cumented) at patient's floor/unit and/or counseling patient:
[2020-01-03] MEDS: Aspirin Enteric Coated 81 MG TABLET.DR PO (09:51)
[2020-01-03] MEDS: predniSONE 20 MG TABLET PO (09:51)
[2020-01-03] MEDS: Gabapentin 300 MG CAPSULE PO ×3 (09:51→21:26)
[2020-01-03] MEDS: hydrALAZINE HCl 25 MG TABLET 100 MG PO ×3 (09:51→21:29)
[2020-01-03] MEDS: Levothyroxine Sodium 50 MCG TABLET PO (09:51)
[2020-01-03] MEDS: Ferrous Sulfate 324 MG TABLET.DR PO ×2 (09:51→21:25)
[2020-01-03] MEDS: Amiodarone HCL 200 MG TABLET 400 MG PO ×2 (09:52→21:30)
[2020-01-03] MEDS: Isosorbide Mononitrate 60 MG TAB.ER.24H 120 MG PO (09:52)
[2020-01-03] MEDS: 0.9 % Sodium Chloride Flush 3 ML SYRINGE 2 ML IVFLUSH ×2 (09:52→15:12)
[2020-01-03] MEDS: Furosemide 40 MG/4 ML VIAL IVPUSH (09:52)
[2020-01-03 10:29] LABS: PTT Heparin Drip 48.4 SEC (53-77.9)
[2020-01-03 10:37] LABS: Anion Gap 14 (12-20); Blood Urea Nitrogen 64 mg/dL (9-16); Calcium 8.4 mg/dL (8.4-10.2); Carbon Dioxide 26 mmol/L (22-29); Chloride 101 mmol/L (96-108); Creatinine Clr Calc Pharmacy 19.1; Estimated Glomerular Filt Rate 20; Glucose Random 236 mg/dL (60-115); Potassium 3.8 mmol/l (3.3-5.1); Sodium 137 mmol/L (135-145)
[2020-01-03 11:41] LABS: Glucose, Whole Blood 224 mg/dL (60-115)
[2020-01-03] MEDS: Insulin Lispro 100 UNIT/ML 3 ML VIAL SUBCUT ×3 (12:40→21:36)
--- NOTE | 2020-01-03 15:39 | PM.IMPN ---
Subjective Subjective Date of Service: 01/03/20 Interval History: Seen and examined breathing easier complaing of burning b/l leg pain Physical Exam Vital Signs and I&O and Narrative: Vital Signs and I&O: Vital Signs Temp 97.5 F 01/03/20 12:00 Pulse 62 01/03/20 12:00 Resp 20 01/03/20 12:00 BP 180/89 H 01/03/20 12:00 Pulse Ox 98 01/03/20 12:00 Intake & Output 01/02/20 01/03/20 01/03/20 18:59 06:59 18:59 Intake Total 182.287 / 837.597 655.310 / 837.597 360 / 360 Output Total 900 / 1800 900 / 1800 500 / 500 Balance -717.713 / -962.40 3 -244.690 / -962.40 3 -140 / -140 Urine Output (Aver age ml/kg/hr) 0.94 0.63 0.52 Intake: Intake, Oral Dale unt 120 / 480 360 / 480 360 / 360 Intake, IV Amoun t 62.287 / 357.597 295.310 / 357.597 cefTRIAXone so dium 1 gm In 0.9 50 / 50 % Sodium Chlor con 50 ml @ 100 mls/hr IV Q24H [facility] Rx#: [id number] Heparin Sodium ,Porcine/1/2NS 25 62.287 / 307.597 245.310 / 307.597 ,000 unit In 2 50 ml @ Per Protocol IVCON T .Q0M [facility] Rx#: [id number] Output: Output, Urine Am ount 900 / 1500 600 / 1500 500 / 500 Output, Stool Am ount 300 / 300 Other: Breakfast % Eate n 75% Dinner % Eaten 100% Number of Bowel Movements 1 1 Urine Bedside Commode Bedside Commode Bedside Commode Urine Color Pale Yellow Yellow Last Bowel Movem ent 01/02/20 01/02/20 01/03/20 Stool Bedside Commode Bedside Commode Bedside Commode Stool Color Green Curt Stool Consistenc y Pasty Body Mass Index 32.1 General - no acute distress, appears comfortable Cardiovascular - s1s2 Lungs - wheezing improved, clear lungs Abdomen - soft, nontender, no rebound regarding Extremities - edema resolving Neuro - awake and alert, no focal deficits Objective Data Current Medications Generic Name Dose Route Start Last Admin Trade Name Freq PRN Reason Stop Dose Admin Albuterol/Ipratropium 3 ml 12/29/19 20:00 01/03/20 13:20 Albuterol/Iprat 2.5/0.5mg 3 Ml Ampul.Neb INHALE 3 ml RQ6H WHILE AWAKE [facility] Administration Amiodarone HCl 400 mg 01/01/20 21:00 01/03/20 09:52 Amiodarone Hcl 200 Mg Tablet PO 400 mg BID [facility] Administration Aspirin 81 mg 01/02/20 10:35 01/03/20 09:51 Aspirin Enteric Coated 81 Mg Tablet. PO 81 mg DAILY [facility] Administration Atorvastatin Calcium 80 mg 01/02/20 21:00 01/02/20 21:56 Atorvastatin Calcium 80 Mg Tablet PO 80 mg BEDTIME [facility] Administration Ferrous Sulfate 324 mg 12/29/19 21:00 01/03/20 09:51 Ferrous Sulfate 324 Mg Tablet. PO 324 mg BID [facility] Administration Furosemide 40 mg 01/01/20 09:00 01/03/20 09:52 Furosemide 40 Mg/4 Ml Vial IVPUSH 40 mg DAILY [facility] Administration Protocol Gabapentin 300 mg 12/29/19 21:00 01/03/20 15:11 Gabapentin 300 Mg Capsule PO 300 mg TID [facility] Administration Heparin Sodium (Porcine) 5,000 unit 01/01/20 14:41 01/02/20 06:53 Heparin Sodium,Porcine 5,000 Unit/Ml Vial IVPUSH 5,000 unit BOLUS PRN Administration Based on PTT results Hydralazine HCl 100 mg 01/02/20 21:00 01/03/20 15:12 Hydralazine Hcl 25 Mg Tablet PO 100 mg TID [facility] Administration Protocol Heparin Sodium/Sodium Chloride 25,000 unit in 250 mls @ 0 mls/hr 01/01/20 14:45 01/03/20 04:40 IVCONT 0 units/kg/hr .Q0M [facility] 0 mls/hr Titration Protocol Per Protocol Ceftriaxone Sodium 1 gm/ 50 mls @ 100 mls/hr 01/02/20 18:00 01/02/20 21:23 Sodium Chloride IV Infused Q24H [facility] Infusion Insulin Human Lispro 0 unit 12/29/19 21:00 01/03/20 12:40 Insulin Lispro 100 Unit/Ml 3 Ml Vial SUBCUT 4 unit QIDACHS [facility] Administration Protocol Isosorbide Mononitrate 120 mg 01/03/20 09:00 01/03/20 09:52 Isosorbide Mononitrate 60 Mg Tab.Er.24h PO 120 mg DAILY [facility] Administration Protocol Levothyroxine Sodium 50 mcg 12/30/19 09:00 01/03/20 09:51 Levothyroxine Sodium 50 Mcg Tablet PO 50 mcg DAILY [facility] Administration Pharmacy Consult 1 each 12/29/19 11:02 Consult Rx Perform Med Rec MISCELLANE ONCE PRN Consult order Prednisone 20 mg 12/29/19 18:00 01/03/20 09:51 Prednisone 20 Mg Tablet PO 20 mg DAILY [facility] Administration Sodium Chloride 2 ml 12/30/19 00:00 01/03/20 15:12 0.9 % Sodium Chloride Flush 3 Ml Syringe IVFLUSH 2 ml QSHIFT [facility] Administration Vitamin D 50 mcg 12/30/19 09:00 01/03/20 09:52 Cholecalciferol (Vitamin D3) 25 Mcg Tablet PO Not Given DAILY [facility] Labs CBC & Chem 7: 01/03/20 05:27 01/03/20 09:34 Labs: Laboratory Results - last 24 hr 01/02/20 01/02/20 01/02/20 16:24 16:47 20:34 MCV MCH MCHC RDW Plt Count MPV Immature Gran % (Auto) Neut % (Auto) Lymph % (Auto) Stevens % (Auto) Eos % (Auto) Baso % (Auto) Neut # (Auto) Lymph # (Auto) Stevens # (Auto) Eos # (Auto) Baso # (Auto) Abs Immat Gran (auto) Absolute Nucleated RBC Nucleated RBC % (auto) PTT (Heparin Protocol) > 200.0 H* 77.9 D Anion Gap Estim Creat Clear Calc Estimated GFR POC Glucose 306 H Random Glucose Fasting Glucose Calcium Iron TIBC % Saturation Unsat Iron Binding Urine Color Urine Appearance Urine pH Ur Specific [place] Urine Protein Urine Glucose (UA) Urine Ketones Urine Blood Urine Nitrite Ur Leukocyte Esterase Urine RBC Urine WBC Ur Squamous Epith Cells Urine Bacteria Hyaline Casts Granular Casts 01/02/20 01/03/20 01/03/20 21:39 02:41 03:44 MCV MCH MCHC RDW Plt Count MPV Immature Gran % (Auto) Neut % (Auto) Lymph % (Auto) Stevens % (Auto) Eos % (Auto) Baso % (Auto) Neut # (Auto) Lymph # (Auto) Stevens # (Auto) Eos # (Auto) Baso # (Auto) Abs Immat Gran (auto) Absolute Nucleated RBC Nucleated RBC % (auto) PTT (Heparin Protocol) > 200.0 H* D Anion Gap Estim Creat Clear Calc Estimated GFR POC Glucose 320 H Random Glucose Fasting Glucose Calcium Iron TIBC % Saturation Unsat Iron Binding Urine Color STRAW Urine Appearance CLEAR Urine pH 7.0 Ur Specific [place] 1.020 Urine Protein 3+ H Urine Glucose (UA) 250 H Urine Ketones NEG Urine Blood NEG Urine Nitrite NEG Ur Leukocyte Esterase NEG Urine RBC 0-2 Urine WBC 1-4 Ur Squamous Epith Cells TRACE Urine Bacteria TRACE Hyaline Casts 1-4 Granular Casts 0-2 01/03/20 01/03/20 01/03/20 05:27 05:27 05:27 MCV 83.0 MCH 26.6 L MCHC 32.0 RDW 15.3 Plt Count 252 D MPV 10.8 Immature Gran % (Auto) 3.7 H Neut % (Auto) 62.8 Lymph % (Auto) 22.8 Stevens % (Auto) 9.5 Eos % (Auto) 1.0 Baso % (Auto) 0.2 Neut # (Auto) 7.5 Lymph # (Auto) 2.7 Stevens # (Auto) 1.1 Eos # (Auto) 0.1 Baso # (Auto) 0.0 Abs Immat Gran (auto) 0.44 H Absolute Nucleated RBC 0.000 Nucleated RBC % (auto) 0.0 PTT (Heparin Protocol) Anion Gap 16 Estim Creat Clear Calc 18.3 Estimated GFR 19 POC Glucose Random Glucose Fasting Glucose 181 H Calcium 8.6 Iron 64 TIBC 231 % Saturation 28 Unsat Iron Binding 167 Urine Color Urine Appearance Urine pH Ur Specific [place] Urine Protein Urine Glucose (UA) Urine Ketones Urine Blood Urine Nitrite Ur Leukocyte Esterase Urine RBC Urine WBC Ur Squamous Epith Cells Urine Bacteria Hyaline Casts Granular Casts 01/03/20 01/03/20 01/03/20 05:27 07:59 09:34 MCV MCH MCHC RDW Plt Count MPV Immature Gran % (Auto) Neut % (Auto) Lymph % (Auto) Stevens % (Auto) Eos % (Auto) Baso % (Auto) Neut # (Auto) Lymph # (Auto) Stevens # (Auto) Eos # (Auto) Baso # (Auto) Abs Immat Gran (auto) Absolute Nucleated RBC Nucleated RBC % (auto) PTT (Heparin Protocol) > 200.0 H* 48.4 L D Anion Gap Estim Creat Clear Calc Estimated GFR POC Glucose 151 H Random Glucose Fasting Glucose Calcium Iron TIBC % Saturation Unsat Iron Binding Urine Color Urine Appearance Urine pH Ur Specific [place] Urine Protein Urine Glucose (UA) Urine Ketones Urine Blood Urine Nitrite Ur Leukocyte Esterase Urine RBC Urine WBC Ur Squamous Epith Cells Urine Bacteria Hyaline Casts Granular Casts 01/03/20 01/03/20 09:34 11:32 MCV MCH MCHC RDW Plt Count MPV Immature Gran % (Auto) Neut % (Auto) Lymph % (Auto) Stevens % (Auto) Eos % (Auto) Baso % (Auto) Neut # (Auto) Lymph # (Auto) Stevens # (Auto) Eos # (Auto) Baso # (Auto) Abs Immat Gran (auto) Absolute Nucleated RBC Nucleated RBC % (auto) PTT (Heparin Protocol) Anion Gap 14 Estim Creat Clear Calc 19.1 Estimated GFR 20 POC Glucose 224 H Random Glucose 236 H D Fasting Glucose Calcium 8.4 Iron TIBC % Saturation Unsat Iron Binding Urine Color Urine Appearance Urine pH Ur Specific [place] Urine Protein Urine Glucose (UA) Urine Ketones Urine Blood Urine Nitrite Ur Leukocyte Esterase Urine RBC Urine WBC Ur Squamous Epith Cells Urine Bacteria Hyaline Casts Granular Casts Microbiology Microbiology Results: Microbiology 12/29/19 12:06 Blood - Venous Blood Culture - Final No growth after 5 days. 12/29/19 11:56 Blood - Venous Blood Culture - Final No growth after 5 days. 12/29/19 15:50 Urine clean catch - Clean Catch Midstream Urine Culture - Final Klebsiella pneumoniae Progress Note: A&P (1) NSTEMI (non-ST elevated myocardial infarction): Status: Acute (2) CKD (chronic kidney disease) stage 3, GFR 30-59 ml/min: Status: Acute (3) COPD exacerbation: Status: Acute (4) Urinary tract infection: Status: Acute (5) Atrial fibrillation with rapid ventricular response: Status: Acute Assessment and Plan: this is a 79-year-old female who presented to the hospital with weakness, fall and generalized swelling 1. anasarca / CKD, stage III/4 continue IV lasix Strict intake and output Monitor kidney function Nephrology is on board 2. new onset atrial fibrillation short-lived Now in sinus on Amio OAC to be determined -- outpatient monitor 3. NSTEMI asa, statin completed 48 hours heparin gtt 4. Uncontrolled hypertension remains uncontrolled -- norvasc 10mg added (part of home meds) 5. COPD exacerbation / acute Respiratory failure with hypoxia significant improvement finished 5 days Continue updrafts on RA now 6. Diabetes mellitus continue sliding-scale 7. Klebsiella UTI rocephin day #2 full code DVT prophylaxis, subcut heparin
--- NOTE | 2020-01-03 16:28 | CONS_ITS ---
DATE OF SERVICE: 01/01/2020 REQUESTING PROVIDER: Zachery Villarreal MD. REASON FOR CONSULTATION: Chest pressure with elevated troponin. HISTORY OF PRESENT ILLNESS: This is a 79-year-old female, well known to me with prior history of diffuse vascular disease, mild aortic stenosis with prior RCA stent in 2006 for angina, diabetes, advancing kidney disease with nephrotic syndrome, recently admitted to the hospital with UTI/sepsis and developed NSTEMI, and was managed medically. Subsequently, she continued to have symptoms of chest pressure at home, was not feeling well, came to the hospital because she had progressive shortness of breath and leg edema, was noted to have nephrotic syndrome and heart failure. She was diuresed and since admission has diuresed about5 L. negative balance. The patient says the leg edema is improved. Her shortness of breath improved. Last night while she was resting, she suddenly developed chest pressure and subsequently EKG finding consistent with atrial fibrillation with rapid ventricular response. She had marked EKG changes suggestive of ischemia, question rate-related. She was given IV Lopressor and then converted to sinus rhythm. This morning, she says she feels better. She does not have the palpitation and chest pressure anymore. However troponin was noted to be elevated compared to her admission troponin with a troponin up to 174.7. Cardiology consult was sought for the same. The patient again had troponin elevation in October when she was admitted with UTI on admission December this time. Her initial admission troponin was 7 and now 174.7. At current time, she feels okay. She does not have any palpitation or chest pain at this time at rest. PAST MEDICAL HISTORY: She has extensive history of CAD and vascular disease with bilateral carotid disease as well as CAD status post RCA stent in 2006. She has mild aortic stenosis by last echocardiogram. She has hypertension, hyperlipidemia, diabetes, restless legs syndrome. She has chronic kidney disease. Does see Nephrology for the same. Recently diagnosed with nephrotic syndrome and currently being treated by an Nephrology for the same. Admitted with progressive shortness of breath, leg edema, and being diuresed. PERSONAL HISTORY: No smoking alcohol or drug abuse. FAMILY HISTORY: Noncontributory to her current presentation. ALLERGIES: LISTED OXYCODONE IN THE CHART. REVIEW OF SYSTEMS: Denies any recent fever, chills; progressive weight gain and edema. No neurologic symptoms, no upper respiratory or lower respiratory symptoms, shortness of breath. No clear orthopnea, PND. Chest pressure last night and she says she has intermittent chest pressure at home. Also had palpitations last night. No clear history of atrial fibrillation in the past. No GI or symptoms. Rest of 12-system review is negative. PHYSICAL EXAMINATION: GENERAL: The patient is alert and oriented x3, elderly woman, who appears frail, in no acute respiratory distress. There is no pallor. There is no icterus no cyanosis. VITAL SIGNS: Blood pressure is 160/60, pulse is 68, sinus rhythm, respirations 12 to 14 per minute, pulse ox 97% on room air, temperature 97.8. HEENT: Normocephalic, atraumatic. NECK: Supple without jugular venous distention with bilateral carotid bruits. LUNGS: Good respiratory effort with dorsal kyphoscoliosis. CARDIAC: Regular S1, S2 with early to mid peaking, crescendo decrescendo ejection systolic murmur with S4. ABDOMEN: Benign, positive bowel sounds. PLASTIC PRESS MOLDER: Nonfocal. EXTREMITIES: Shows reduced pulses. No cyanosis, clubbing, edema. LABORATORY DATA: Hemoglobin 9.3, hematocrit 28.8, white cell count of 9.4, platelet count of 258. Sodium 139, potassium 3.8, BUN 48, creatinine 2.34. Troponin 174.7. Admission troponin was 7. Chest x-ray showed mild cardiomegaly. No vascular congestion. EKG from last night showed atrial fibrillation with rapid ventricular response with marked ST-T wave changes suggestive of ischemia. EKG from this morning shows normal sinus rhythm with nonspecific ST changes. ASSESSMENT: This 79-year-old female with multiple comorbidities, presents with fluid overload related to nephrotic syndrome as well as heart failure, mildly improved with 5 L diuresis since admission, last night developed atrial fibrillation with rapid ventricular response with ischemic symptoms and EKG changes, elevated troponins suggestive of secondary myocardial ischemia due to rapid atrial fibrillation, underlying coronary disease is highly likely. PLAN: At this time, the patient will be treated medically. Would like to control her rhythm. Given her multiple comorbidities, amiodarone would be an appropriate choice. Start 400 mg b.i.d. to maintain rhythm. Follow up EKG to concomitantly reduce her carvedilol dose due to baseline heart rate in the upper 50s and 60s to half the dose. Continue aggressive control of her blood pressure, bump up her hydralazine to 100 mg b.i.d., and if needed 100 mg t.i.d. Also increase isosorbide to 120 mg daily. Start IV heparin. Echocardiogram needs to be requested. Once she is more stable and fluid control, we will pursue with a stress test as inpatient to evaluate for myocardial ischemia. Will probably pursue conservative medical therapy given her multiple comorbidities, advancing kidney disease. We will discuss with the patient. Once she has the stress test results, will be followed by Dr. Germain tomorrow. Thank you for allowing me to partake in the care. Frantz Cardenas MD NRS/MODL / [id number]
[2020-01-03 16:47] LABS: Glucose, Whole Blood 279 mg/dL (60-115)
[2020-01-03] MEDS: cefTRIAXone sodium 1 GM in 0.9 % Sodium Chloride 50 ML IV (17:21)
[2020-01-03] MEDS: amLODIPine Besylate 5 MG TABLET 10 MG PO (17:23)
[2020-01-03] MEDS: Heparin Sodium,Porcine 5,000 UNIT/ML VIAL 5000 UNIT SUBCUT (17:26)
[2020-01-03] MEDS: Atorvastatin Calcium 80 MG TABLET PO (21:27)
[2020-01-03 21:33] LABS: Glucose, Whole Blood 249 mg/dL (60-115)
[2020-01-04] VITALS (21 sets, daily range): BP systolic 165–204; BP diastolic 40–81; PULSE 58–72; RESP 17–20; TEMP 36.1–36.9; O2SAT 96–99
--- NOTE | 2020-01-04 | CT_ITS ---
EXAMINATION: CT ABDOMEN WITHOUT CONTRAST CLINICAL INFORMATION: Abdominal pain. Epigastric pain. Question PUD COMPARISON: CT chest 01/28/2019. Abdominal ultrasound 11/23/2019 CT abdomen pelvis 06/18/2016 TECHNIQUE: Contiguous axial thin section helical images of the abdomen were performed without contrast. The data set was reformatted in the coronal and sagittal planes and reviewed on an independent workstation. This CT examination was performed using dose optimization techniques as appropriate, variously including the following: *Automated exposure control *Adjustment of mA and/or kV according to patient size (this includes techniques or standardized protocols for targeted exams where dose is matched to indication/reason for exam; i.e. extremities or head) *Use of iterative reconstruction technique DLP: 493 mGy-cm FINDINGS: LUNG BASES: Linear atelectasis or scarring at dependent lung bases. No focal infiltrate or pleural effusion. History calcifications of aorta. Moderate volume of calcification of the coronary arteries. There is no pericardial effusion. LIVER, GALLBLADDER, AND BILIARY TREE: The liver is normal in size, shape, and attenuation. No focal hepatic lesion or biliary ductal dilatation is present. Isodense material layering dependently in the gallbladder could be sludge or small stones. No gallbladder wall thickening or pericholecystic fluid. PANCREAS: No acute change of the pancreas. No mass. No pancreatic duct dilatation. SPLEEN: Spleen normal in size and contour. No focal lesion. ADRENAL GLANDS: Adrenal glands are normal in size. No focal mass. KIDNEYS AND URETERS: The kidneys are normal in size, shape, and attenuation. No hydronephrosis, hydroureter, or calculi seen. No perinephric stranding. GASTROINTESTINAL TRACT: There are numerous diverticula throughout the visualized colon. There is no diverticulitis. There is no bowel wall thickening /edema. There is no bowel obstruction. There is a moderate volume of stool in the colon. The appendix is nonvisualized . No acute abnormality of the small bowel loops. There is a diverticulum of the second portion of the duodenum with air-fluid level within it. No inflammation of the diverticulum. The stomach is normal. There is no hiatal hernia. MESENTERY: No focal inflammation. No free fluid. No free air. ABDOMINAL WALL: No significant hernia is appreciated. LYMPH NODES: Normal. VASCULAR: Atherosclerotic vascular calcifications of aorta and iliac arteries. There is no aneurysm. OSSEOUS STRUCTURES: Multilevel degenerative spondylosis spine. There is old compression about 20% compression deformity of the superior endplate L1 vertebrae. This is a osteosclerotic. There is vacuum disc changes at T12-L1 disc space. IMPRESSION: 1. No acute change of the bowel including stomach. No bowel wall thickening or edema. No inflammation of mesentery. There is diverticulosis of the colon but no diverticulitis. 2. Cholelithiasis without acute change of the gallbladder wall. There is no bile duct dilatation.
[2020-01-04] MEDS: 0.9 % Sodium Chloride Flush 3 ML SYRINGE 2 ML IVFLUSH ×4 (02:23→23:14)
[2020-01-04] MEDS: Heparin Sodium,Porcine 5,000 UNIT/ML VIAL 5000 UNIT SUBCUT ×3 (02:23→17:11)
[2020-01-04 06:37] LABS: MANUAL DIFF FLAG NO
[2020-01-04 06:54] LABS: Basophils Percent Auto 0.2 % (0-2); Eosinophils Absolute Auto 0.1 X10*3/uL (0.0-0.4); Eosinophils Percent Auto 0.7 % (0-4); Hematocrit 26.1 % (37-47); Hemoglobin 8.4 g/dl (12.0-16.0); Lymphocytes Absolute Auto 2.5 X10*3/uL (1.2-4.9); Lymphocytes Percent Auto 24.5 % (20-40); Mean Corpuscular HGB Conc 32.2 g/dl (31.0-35.0); Mean Corpuscular Hemoglobin 26.7 pg (27.0-33.0); Mean Corpuscular Volume 82.9 fL (80-98); Mean Platelet Volume 10.5 fL (9.4-12.3); Monocytes Percent Auto 9.5 % (2-11); Neutrophils Absolute Auto 6.1 X10*3/uL (2.0-8.3); Neutrophils Percent Auto 61.1 % (45-73); Platelet Count 252 X10*3/uL (160-400); Red Blood Count 3.15 X10*6/uL (4.20-5.50); Red Cell Distribution Width 15.6 % (11.0-16.0)
[2020-01-04 07:09] LABS: Anion Gap 13 (12-20); Blood Urea Nitrogen 67 mg/dL (9-16); Calcium 8.4 mg/dL (8.4-10.2); Carbon Dioxide 28 mmol/L (22-29); Chloride 100 mmol/L (96-108); Creatinine Clr Calc Pharmacy 18.3; Estimated Glomerular Filt Rate 19; Glucose Fasting 143 mg/dL (60-99); Potassium 4.1 mmol/l (3.3-5.1); Sodium 137 mmol/L (135-145)
[2020-01-04] MEDS: Albuterol/Iprat 2.5/0.5MG 3 ML AMPUL.NEB INHALE ×3 (07:17→20:22)
[2020-01-04 07:56] LABS: Glucose, Whole Blood 128 mg/dL (60-115)
[2020-01-04] MEDS: Amiodarone HCL 200 MG TABLET 400 MG PO ×2 (09:23→23:09)
[2020-01-04] MEDS: Furosemide 40 MG/4 ML VIAL IVPUSH (09:23)
[2020-01-04] MEDS: Isosorbide Mononitrate 60 MG TAB.ER.24H 120 MG PO (09:23)
[2020-01-04] MEDS: Levothyroxine Sodium 50 MCG TABLET PO (09:24)
[2020-01-04] MEDS: Cholecalciferol (Vitamin D3) 25 MCG TABLET 50 MCG PO (09:24)
[2020-01-04] MEDS: Ferrous Sulfate 324 MG TABLET.DR PO ×2 (09:24→23:10)
[2020-01-04] MEDS: Gabapentin 300 MG CAPSULE PO ×3 (09:24→23:10)
[2020-01-04] MEDS: amLODIPine Besylate 5 MG TABLET 10 MG PO (09:24)
[2020-01-04] MEDS: Aspirin Enteric Coated 81 MG TABLET.DR PO (09:24)
[2020-01-04] MEDS: hydrALAZINE HCl 25 MG TABLET 100 MG PO ×3 (09:25→23:10)
--- NOTE | 2020-01-04 10:58 | P.PNNP_ITS ---
Subjective Subjective Interval history: Seen and examined breathing easier complaining gen weak Physical Exam Vital Signs and I&O and Narrative: Vital Signs and I&O: Vital Signs Temp 97.9 F 01/04/20 06:59 Pulse 62 01/04/20 09:25 Resp 17 01/04/20 04:00 BP 179/71 H 01/04/20 09:25 Pulse Ox 98 01/04/20 08:00 Intake & Output 01/03/20 01/04/20 01/04/20 18:59 06:59 18:59 Intake Total 590 / 750 160 / 750 220 / 220 Output Total 500 / 2200 1700 / 2200 800 / 800 Balance 90 / -1450 -1540 / -1450 -580 / -580 Urine Output (Aver age ml/kg/hr) 0.52 1.77 0.84 Intake: Intake, Oral Young Harris unt 540 / 700 160 / 700 220 / 220 Intake, IV Amoun t 50 / 50 cefTRIAXone so dium 1 gm In 0.9 50 / 50 % Sodium Chlor con 50 ml @ 100 mls/hr IV Q24H [facility] Rx#: [id number] Heparin Sodium ,Porcine/1/2NS 25 0 / 0 ,000 unit In 2 50 ml @ Per Protocol IVCON T .Q0M [facility] Rx#: [id number] Output: Output, Urine Am ount 500 / 2200 1700 / 2200 800 / 800 Other: Breakfast % Eate n 75% 100% Dinner % Eaten 100% Urine Bedside Commode Bedside Commode Urine Color Yellow Yellow Last Bowel Movem ent 01/03/20 Stool Bedside Commode Stool Color Curt Body Mass Index 32.1 Laboratory Tests 05/03/19 01/04/20 13:03 05:18 Creatinine 1.99 H 2.44 H general, no acute distress Cardiovascular, S1-S2 -- Lower extremity edema improved Lungs - no respiratory distress, scattered wheezing/rales Abdomen-- soft nontender Extremities-- swelling improved Neuro - A&O x3 Laboratory Tests 11/24/19 01/02/20 01/03/20 05:27 05:29 05:27 Creatinine 1.88 H 2.14 H 2.44 H Const: General: comfortable and awake HENMT: Head: Yes normal to inspection Chest: Chest palpation & inspection: normal inspection of the chest Resp: Effort & Inspection: normal respiratory effort Auscultation: diminished lung sounds Cardio: Jugular venous distension: no JVD Rhythm: regular rhythm Extrem: Left lower extremity: edema Details: 1+ Assessment & Plan Assessment and plan (1) Atrial fibrillation with rapid ventricular response: Status: Acute (2) Urinary tract infection: Status: Acute (3) PAF (paroxysmal atrial fibrillation): Status: Acute (4) NSTEMI (non-ST elevated myocardial infarction): Status: Acute (5) 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 TBFOL: much improved after IV diuretics; 3. Anemia: Epo def 4. DM 5. HTN: suboptimal REC: switch IV lasix to po torsemide 40 bidt; start procrit ( I will order) ; Immunofix pending; protect non-dominat arm for future AVF; adust meds for GFR 20-25ml/min; incr BP meds... add hydralazine 25 bid Time Spent With Patient Time: Total time spent is greater than 50% in coordination of care (as documented) at patient's floor/unit and/or counseling patient:
[2020-01-04 11:37] LABS: Glucose, Whole Blood 195 mg/dL (60-115)
--- NOTE | 2020-01-04 11:55 | MHC.CM.PN ---
per rounds pt to be dcd possibley fri with hvns resumption
--- NOTE | 2020-01-04 12:07 | P.PNCA_ITS ---
Subjective Subjective Interval history: She still very weak and deconditioned. Not acutely short of breath. No further chest pains. Cardiac-negative for angina, acute shortness of breath, palpitations or syncopal episodes. Remainder of the 10 system review is negative. Physical Exam Vital Signs and I&O: Vital Signs Temp 96.9 F 01/04/20 11:08 Pulse 62 01/04/20 11:08 Resp 20 01/04/20 11:08 BP 170/62 H 01/04/20 11:08 Pulse Ox 97 01/04/20 11:08 Const General: cooperative, comfortable and no acute distress Orientation/consciousness: patient oriented x3 HENMT Other: Unremarkable Neck Neck: Yes normal visual inspection Chest Chest palpation & inspection: normal inspection of the chest Resp Other: Diminished breath sounds bilaterally with some scattered crackles Auscultation: wheezes Cardio Other: 2/6 soft systolic murmur Jugular venous distension: no JVD Palpation: normal PMI Heart sounds: S1 normal heart sound present, S2 normal heart sound present, no gallops and no rubs GI Palpation (GI): Soft to palpation Back/Spine/Pelvis Other: unremarkable Skin General skin exam: no rashes or lesions noted Neuro General: patient oriented x3 Extrem General: Yes no clubbing, cyanosis or edema Psych Mental Status: mental status grossly normal Progress Note: A&P Assessment and plan (1) NSTEMI (non-ST elevated myocardial infarction): Status: Acute Assessment and Plan: Aspirin. Statins. At some point, she will need perfusion imaging. Lung status will need to be optimal before that. Timing to be decided. (2) PAF (paroxysmal atrial fibrillation): Status: Acute Assessment and Plan: Continue amiodarone loading and then we will switch to maintenance amiodarone. She remains in sinus rhythm on the EKG. As the duration of atrial fibrillation was only 6 hours, need to decide on long-term anticoagulation especially she also has significant anemia. Need to weigh the pros and cons. Outpatient Holter or event monitor will be arranged. (3) COPD exacerbation: Status: Acute Assessment and Plan: Per Dr. Fuller. (4) Essential hypertension: Status: Acute Assessment and Plan: her blood pressure is still high. We can add back a small dose of Coreg while watching her heart rate. Fall Risk Details Current Medications: Current Medications Generic Name Dose Route Start Last Admin Trade Name Freq PRN Reason Stop Dose Admin Albuterol/Ipratropium 3 ml 12/29/19 20:00 01/04/20 07:17 Albuterol/Iprat 2.5/0.5mg 3 Ml Ampul.Neb INHALE 3 ml RQ6H WHILE AWAKE MORIAH Administration Amiodarone HCl 400 mg 01/01/20 21:00 01/04/20 09:23 Amiodarone Hcl 200 Mg Tablet PO 400 mg BID [facility] Administration Amlodipine Besylate 10 mg 01/04/20 09:00 01/04/20 09:24 Amlodipine Besylate 5 Mg Tablet PO 10 mg DAILY [facility] Administration Protocol Aspirin 81 mg 01/02/20 10:35 01/04/20 09:24 Aspirin Enteric Coated 81 Mg Tablet. PO 81 mg DAILY [facility] Administration Atorvastatin Calcium 80 mg 01/02/20 21:00 01/03/20 21:27 Atorvastatin Calcium 80 Mg Tablet PO 80 mg BEDTIME M[facility]IA[facility] Administration Ferrous Sulfate 324 mg 12/29/19 21:00 01/04/20 09:24 Ferrous Sulfate 324 Mg Tablet. PO 324 mg BID M[facility] Administration Furosemide 40 mg 01/01/20 09:00 01/04/20 09:23 Furosemide 40 Mg/4 Ml Vial IVPUSH 40 mg DAILY [facility] Administration Protocol Gabapentin 300 mg 12/29/19 21:00 01/04/20 09:24 Gabapentin 300 Mg Capsule PO 300 mg TID M[facility] Administration Heparin Sodium (Porcine) 5,000 unit 01/03/20 18:00 01/04/20 09:25 Heparin Sodium,Porcine 5,000 Unit/Ml Vial SUBCUT 5,000 unit Q8H [facility] Administration Hydralazine HCl 100 mg 01/02/20 21:00 01/04/20 09:25 Hydralazine Hcl 25 Mg Tablet PO 100 mg TID [facility] Administration Protocol Ceftriaxone Sodium 1 gm/ 50 mls @ 100 mls/hr 01/02/20 18:00 01/03/20 17:57 Sodium Chloride IV Infused Q24H [facility] Infusion Insulin Human Lispro 0 unit 12/29/19 21:00 01/04/20 09:20 Insulin Lispro 100 Unit/Ml 3 Ml Vial SUBCUT Not Given QIDACHS [facility] Protocol Isosorbide Mononitrate 120 mg 01/03/20 09:00 01/04/20 09:23 Isosorbide Mononitrate 60 Mg Tab.Er.24h PO 120 mg DAILY [facility] Administration Protocol Levothyroxine Sodium 50 mcg 12/30/19 09:00 01/04/20 09:24 Levothyroxine Sodium 50 Mcg Tablet PO 50 mcg DAILY [facility] Administration Pharmacy Consult 1 each 12/29/19 11:02 Consult Rx Perform Med Rec MISCELLANE ONCE PRN Consult order Sodium Chloride 2 ml 12/30/19 00:00 01/04/20 09:23 0.9 % Sodium Chloride Flush 3 Ml Syringe IVFLUSH 2 ml QSHIFT [facility] Administration Vitamin D 50 mcg 12/30/19 09:00 01/04/20 09:24 Cholecalciferol (Vitamin D3) 25 Mcg Tablet PO 50 mcg DAILY [facility] Administration Time Spent With Patient Time: Total time spent is greater than 50% in coordination of care (as documented) at patient's floor/unit and/or counseling patient: Time with patient: 15 - 24 minutes
[2020-01-04] MEDS: Insulin Lispro 100 UNIT/ML 3 ML VIAL SUBCUT ×2 (12:15→17:11)
[2020-01-04 12:42] LABS: Iron 43 mcg/dL (30-160); Percent Iron Saturation 19 % (15-50); Total Iron Binding Capacity 221 mcg/dL (228-428); Unsaturated Iron Binding 178 ug/dL
[2020-01-04 13:03] LABS: Ferritin 88 ng/mL (10-250)
--- NOTE | 2020-01-04 13:17 | MHC.CM.NN ---
per rounds pt to be dcd thursday
[2020-01-04] MEDS: Morphine Sulfate 2 MG/ML CARTRIDGE IVPUSH ×2 (14:46→17:44)
[2020-01-04] MEDS: Omeprazole 20 MG CAPSULE.DR PO (14:47)
[2020-01-04] MEDS: ondansetron HCL 4 MG/2 ML VIAL IVPUSH (14:47)
[2020-01-04 16:28] LABS: Glucose, Whole Blood 203 mg/dL (60-115)
[2020-01-04] MEDS: cefTRIAXone sodium 1 GM in 0.9 % Sodium Chloride 50 ML IV (17:12)
--- NOTE | 2020-01-04 17:29 | PM.IMPN ---
Subjective Subjective Date of Service: 01/04/20 Interval History: seen and examined multiple times today this AM was complaining of some nausea but then when seen again later one, she reported that she had some epigastric pain seen again late afternoon when she said pain had improved but she didnt eat dinner Review of Systems General - no fevers or chills Cardiovascular - no chest pain Respiratory - no shortness of breath or cough Abdominal- +abd pain, nausea/vomiting Physical Exam Vital Signs and I&O and Narrative: Vital Signs and I&O: Vital Signs Temp 98.4 F 01/04/20 15:04 Pulse 61 01/04/20 15:04 Resp 18 01/04/20 15:04 BP 182/75 H 01/04/20 15:04 Pulse Ox 96 01/04/20 15:04 Intake & Output 01/03/20 01/04/20 01/04/20 18:59 06:59 18:59 Intake Total 590 / 750 160 / 750 400 / 400 Output Total 500 / 2200 1700 / 2200 1100 / 1100 Balance 90 / -1450 -1540 / -1450 -700 / -700 Urine Output (Aver age ml/kg/hr) 0.52 1.77 1.15 Intake: Intake, Oral [place] unt 540 / 700 160 / 700 400 / 400 Intake, IV Amoun t 50 / 50 cefTRIAXone so dium 1 gm In 0.9 50 / 50 % Sodium Chlor con 50 ml @ 100 mls/hr IV Q24H [facility] Rx#: [id number] Heparin Sodium ,Porcine/1/2NS 25 0 / 0 ,000 unit In 2 50 ml @ Per Protocol IVCON T .Q0M [facility] Rx#: [id number] Output: Output, Urine Am ount 500 / 2200 1700 / 2200 1100 / 1100 Other: Meal Refused No NPO No Breakfast % Eate n 75% 100% Lunch % Eaten 50% Dinner % Eaten 100% Urine Bedside Commode Bedside Commode Urine Color Yellow Yellow Last Bowel Movem ent 01/03/20 Stool Bedside Commode Stool Color Curt Body Mass Index 32.1 General - no acute distress, appears comfortable Cardiovascular - regular rate and rhythm, S1-S2 Lungs - normal respiratory effort, clear to auscultation bilaterally, no wheezing Abdomen - soft, mild epigastric tenderness without rebound or guarding Extremities - no edema bilaterally Neuro - awake and alert, no focal deficits Objective Data Current Medications Generic Name Dose Route Start Last Admin Trade Name Daquan PRN Reason Stop Dose Admin Albuterol/Ipratropium 3 ml 12/29/19 20:00 01/04/20 13:20 Albuterol/Iprat 2.5/0.5mg 3 Ml Ampul.Neb INHALE 3 ml RQ6H WHILE AWAKE M[facility]IA[facility] Administration Amiodarone HCl 400 mg 01/01/20 21:00 01/04/20 09:23 Amiodarone Hcl 200 Mg Tablet PO 400 mg BID [facility] Administration Amlodipine Besylate 10 mg 01/04/20 09:00 01/04/20 09:24 Amlodipine Besylate 5 Mg Tablet PO 10 mg DAILY [facility] Administration Protocol Aspirin 81 mg 01/02/20 10:35 01/04/20 09:24 Aspirin Enteric Coated 81 Mg Tablet. PO 81 mg DAILY [facility] Administration Atorvastatin Calcium 80 mg 01/02/20 21:00 01/03/20 21:27 Atorvastatin Calcium 80 Mg Tablet PO 80 mg BEDTIME [facility] Administration Ferrous Sulfate 324 mg 12/29/19 21:00 01/04/20 09:24 Ferrous Sulfate 324 Mg Tablet. PO 324 mg BID [facility] Administration Furosemide 40 mg 01/01/20 09:00 01/04/20 09:23 Furosemide 40 Mg/4 Ml Vial IVPUSH 40 mg DAILY [facility] Administration Protocol Gabapentin 300 mg 12/29/19 21:00 01/04/20 14:47 Gabapentin 300 Mg Capsule PO 300 mg TID [facility] Administration Heparin Sodium (Porcine) 5,000 unit 01/03/20 18:00 01/04/20 17:11 Heparin Sodium,Porcine 5,000 Unit/Ml Vial SUBCUT 5,000 unit Q8H [facility] Administration Hydralazine HCl 100 mg 01/02/20 21:00 01/04/20 14:47 Hydralazine Hcl 25 Mg Tablet PO 100 mg TID [facility] Administration Protocol Ceftriaxone Sodium 1 gm/ 50 mls @ 100 mls/hr 01/02/20 18:00 01/04/20 17:12 Sodium Chloride IV 100 mls/hr Q24H [facility] Administration Insulin Human Lispro 0 unit 12/29/19 21:00 01/04/20 17:11 Insulin Lispro 100 Unit/Ml 3 Ml Vial SUBCUT 4 unit QIDACHS [facility] Administration Protocol Isosorbide Mononitrate 120 mg 01/03/20 09:00 01/04/20 09:23 Isosorbide Mononitrate 60 Mg Tab.Er.24h PO 120 mg DAILY [facility] Administration Protocol Levothyroxine Sodium 50 mcg 12/30/19 09:00 01/04/20 09:24 Levothyroxine Sodium 50 Mcg Tablet PO 50 mcg DAILY [facility] Administration Morphine Sulfate 2 mg 01/04/20 14:27 01/04/20 14:46 Morphine Sulfate 2 Mg/Ml Cartridge IVPUSH 2 mg Q4H PRN Administration Pain, Severe (Pain Scale 7-10) Omeprazole 20 mg 01/04/20 14:30 01/04/20 14:47 Omeprazole 20 Mg Capsule.Dr PO 20 mg DAILY@0630 [facility] Administration Ondansetron HCl 4 mg 01/04/20 13:08 01/04/20 14:47 Ondansetron Hcl 4 Mg/2 Ml Vial IVPUSH 4 mg Q8H PRN Administration Nausea and Vomiting Pharmacy Consult 1 each 12/29/19 11:02 Consult Rx Perform Med Rec MISCELLANE ONCE PRN Consult order Sodium Chloride 2 ml 12/30/19 00:00 01/04/20 17:14 0.9 % Sodium Chloride Flush 3 Ml Syringe IVFLUSH 2 ml QSHIFT [facility] Administration Vitamin D 50 mcg 12/30/19 09:00 01/04/20 09:24 Cholecalciferol (Vitamin D3) 25 Mcg Tablet PO 50 mcg DAILY [facility] Administration Labs CBC & Chem 7: 01/04/20 05:18 01/04/20 05:18 Labs: Laboratory Results - last 24 hr 01/03/20 01/04/20 01/04/20 21:29 05:18 05:18 MCV 82.9 MCH 26.7 L MCHC 32.2 RDW 15.6 Plt Count 252 MPV 10.5 Immature Gran % (Auto) 4.0 H Neut % (Auto) 61.1 Lymph % (Auto) 24.5 [place] % (Auto) 9.5 Eos % (Auto) 0.7 Baso % (Auto) 0.2 Neut # (Auto) 6.1 Lymph # (Auto) 2.5 [place] # (Auto) 1.0 Eos # (Auto) 0.1 Baso # (Auto) 0.0 Abs Immat Gran (auto) 0.40 H Absolute Nucleated RBC 0.000 Nucleated RBC % (auto) 0.0 Anion Gap 13 Estim Creat Clear Calc 18.3 Estimated GFR 19 POC Glucose 249 H Fasting Glucose 143 H Calcium 8.4 Iron 43 TIBC 221 L % Saturation 19 Unsat Iron Binding 178 Ferritin 88 01/04/20 01/04/20 01/04/20 07:37 11:29 16:04 MCV MCH MCHC RDW Plt Count MPV Immature Gran % (Auto) Neut % (Auto) Lymph % (Auto) [place] % (Auto) Eos % (Auto) Baso % (Auto) Neut # (Auto) Lymph # (Auto) [place] # (Auto) Eos # (Auto) Baso # (Auto) Abs Immat Gran (auto) Absolute Nucleated RBC Nucleated RBC % (auto) Anion Gap Estim Creat Clear Calc Estimated GFR POC Glucose 128 H 195 H 203 H Fasting Glucose Calcium Iron TIBC % Saturation Unsat Iron Binding Ferritin Microbiology Microbiology Results: Microbiology 12/29/19 12:06 Blood - Venous Blood Culture - Final No growth after 5 days. 12/29/19 11:56 Blood - Venous Blood Culture - Final No growth after 5 days. 12/29/19 15:50 Urine clean catch - Clean Catch Midstream Urine Culture - Final Klebsiella pneumoniae Progress Note: A&P (1) NSTEMI (non-ST elevated myocardial infarction): Status: Acute (2) CKD (chronic kidney disease) stage 3, GFR 30-59 ml/min: Status: Acute (3) COPD exacerbation: Status: Acute (4) Urinary tract infection: Status: Acute (5) Atrial fibrillation with rapid ventricular response: Status: Acute Assessment and Plan: this is a 79-year-old female who presented to the hospital with weakness, fall and generalized swelling 1. anasarca / CKD, stage III/4 improving overall change to po lasxi 40mg bid Strict intake and output Monitor kidney function Nephrology is on board 2. new onset atrial fibrillation short-lived Now in sinus on Amio OAC to be determined -- hold off for now given significant anemia outpatient monitor 3. NSTEMI asa, statin completed 48 hours heparin gtt 4. Uncontrolled hypertension remains uncontrolled -- norvasc 10mg added (part of home meds) 5. COPD exacerbation / acute Respiratory failure with hypoxia significant improvement finished 5 days Continue updrafts on RA now 6. Diabetes mellitus continue sliding-scale 7. Klebsiella UTI rocephin day #3 8. Abdominal Pain ? gastritis not eating and unable to sleep -- belly is soft, but will check CT to rule out anything major. empiric PPI morphine for pain 9. Anemia check occult blood iron studies, b12 folate procrit ordered by neprhology full code DVT prophylaxis, subcut heparin
[2020-01-04] MEDS: hydrALAZINE HCl 20 MG/ML VIAL 10 MG IVPUSH (18:58)
[2020-01-04 20:58] LABS: Glucose, Whole Blood 189 mg/dL (60-115)
[2020-01-04] MEDS: Atorvastatin Calcium 80 MG TABLET PO (23:09)
[2020-01-04] MEDS: carvediloL 3.125 MG TABLET PO (23:10)
[2020-01-05] VITALS (18 sets, daily range): BP systolic 130–188; BP diastolic 58–98; PULSE 55–97; RESP 18–20; TEMP 36.2–36.7; O2SAT 95–97
[2020-01-05] MEDS: Morphine Sulfate 2 MG/ML CARTRIDGE IVPUSH (01:09)
[2020-01-05] MEDS: Heparin Sodium,Porcine 5,000 UNIT/ML VIAL 5000 UNIT SUBCUT ×3 (01:09→17:20)
[2020-01-05] MEDS: Omeprazole 20 MG CAPSULE.DR PO (05:48)
[2020-01-05 06:47] LABS: MANUAL DIFF FLAG NO
[2020-01-05 06:54] LABS: Basophils Percent Auto 0.3 % (0-2); Eosinophils Absolute Auto 0.4 X10*3/uL (0.0-0.4); Eosinophils Percent Auto 3.8 % (0-4); Hematocrit 27.8 % (37-47); Hemoglobin 8.8 g/dl (12.0-16.0); Imm Gran Abs Auto 0.37 X10*3/uL (0.00-0.03); Imm Gran Pct Auto 3.6 % (0.0-0.4); Lymphocytes Absolute Auto 2.7 X10*3/uL (1.2-4.9); Mean Corpuscular HGB Conc 31.7 g/dl (31.0-35.0); Mean Corpuscular Hemoglobin 26.7 pg (27.0-33.0); Mean Corpuscular Volume 84.2 fL (80-98); Mean Platelet Volume 10.7 fL (9.4-12.3); Monocytes Absolute Auto 1.1 X10*3/uL (0.1-1.2); Monocytes Percent Auto 10.7 % (2-11); Neutrophils Absolute Auto 5.7 X10*3/uL (2.0-8.3); Neutrophils Percent Auto 55.6 % (45-73); Platelet Count 291 X10*3/uL (160-400); White Blood Count 10.3 X10*3/uL (4.8-10.8)
[2020-01-05 07:21] LABS: Anion Gap 14 (12-20); Blood Urea Nitrogen 60 mg/dL (9-16); Calcium 8.5 mg/dL (8.4-10.2); Carbon Dioxide 27 mmol/L (22-29); Chloride 100 mmol/L (96-108); Creatinine Clr Calc Pharmacy 17.2; Estimated Glomerular Filt Rate 18; Glucose Fasting 117 mg/dL (60-99); Potassium 4.2 mmol/l (3.3-5.1); Sodium 137 mmol/L (135-145)
[2020-01-05 07:39] LABS: Glucose, Whole Blood 118 mg/dL (60-115)
[2020-01-05] MEDS: Albuterol/Iprat 2.5/0.5MG 3 ML AMPUL.NEB INHALE ×3 (07:56→19:54)
--- NOTE | 2020-01-05 08:15 | P.PNCA_ITS ---
Subjective Subjective Interval history: No cardiac symptoms at this time. No chest pain of anginal type. She had some abdominal pain yesterday but resolved now. Review of Systems Review of Systems No angina, palpitations, leg swelling or syncope. Shortness of breath is at baseline. GI-positive abdominal pain yesterday. Remainder of the 10 system review is negative. Physical Exam Vital Signs and I&O: Vital Signs Temperature 96.7 F L 12/29/19 10:16 Pulse Rate 74 12/29/19 10:16 Respiratory Rate 20 12/29/19 10:16 Blood Pressure 190/57 H 12/29/19 10:16 Pulse Oximetry 100 12/29/19 10:16 Temperature 97.6 F 01/05/20 07:06 Pulse Rate 55 01/05/20 08:56 Respiratory Rate 20 01/05/20 07:06 Blood Pressure 188/76 H 01/05/20 08:56 Pulse Oximetry 96 01/05/20 07:06 Const General: cooperative, comfortable and no acute distress Orientation/consciousness: patient oriented x3 HENMT Other: Unremarkable Neck Neck: Yes normal visual inspection Chest Chest palpation & inspection: normal inspection of the chest Resp Other: Diminished breath sounds bilaterally with some scattered crackles Auscultation: wheezes Cardio Other: 2/6 soft systolic murmur Jugular venous distension: no JVD Palpation: normal PMI Heart sounds: S1 normal heart sound present, S2 normal heart sound present, no gallops and no rubs GI Palpation (GI): Soft to palpation Back/Spine/Pelvis Other: unremarkable Skin General skin exam: no rashes or lesions noted Neuro General: patient oriented x3 Extrem General: Yes no clubbing, cyanosis or edema Psych Mental Status: mental status grossly normal Progress Note: A&P Assessment and plan (1) NSTEMI (non-ST elevated myocardial infarction): Status: Acute Assessment and Plan: Statins. At some point, she will need perfusion imaging. Lung status will need to be optimal before that. Timing to be decided. (2) PAF (paroxysmal atrial fibrillation): Status: Acute Assessment and Plan: Continue amiodarone loading and then we will switch to maintenance amiodarone. She remains in sinus rhythm on the EKG. As the duration of atrial fibrillation was only 6 hours, need to decide on long-term anticoagulation e specially she also has significant anemia. Need to weigh the pros and cons. Outpatient Holter or event monitor will be arranged. (3) COPD exacerbation: Status: Acute Assessment and Plan: Per Dr. Fuller. (4) Essential hypertension: Status: Acute Assessment and Plan: her blood pressure is still high. We can increase Coreg while watching her heart rate. If this doesn't bring it down, then possibly ?clonidine vs alpha blockers. Also ask nephro. Fall Risk Details Current Medications: Current Medications Generic Name Dose Route Start Last Admin Trade Name Daquan PRN Reason Stop Dose Admin Albuterol/Ipratropium 3 ml 12/29/19 20:00 01/05/20 07:56 Albuterol/Iprat 2.5/0.5mg 3 Ml Ampul.Neb INHALE 3 ml RQ6H WHILE AWAKE MORIAH Administration Amiodarone HCl 400 mg 01/01/20 21:00 01/04/20 23:09 Amiodarone Hcl 200 Mg Tablet PO 400 mg BID [facility] Administration Amlodipine Besylate 10 mg 01/04/20 09:00 01/04/20 09:24 Amlodipine Besylate 5 Mg Tablet PO 10 mg DAILY [facility] Administration Protocol Aspirin 81 mg 01/02/20 10:35 01/04/20 09:24 Aspirin Enteric Coated 81 Mg Tablet. PO 81 mg DAILY [facility] Administration Atorvastatin Calcium 80 mg 01/02/20 21:00 01/04/20 23:09 Atorvastatin Calcium 80 Mg Tablet PO 80 mg BEDTIME [facility] Administration Carvedilol 3.125 mg 01/04/20 21:00 01/04/20 23:10 Carvedilol 3.125 Mg Tablet PO 3.125 mg BID [facility] Administration Protocol Ferrous Sulfate 324 mg 12/29/19 21:00 01/04/20 23:10 Ferrous Sulfate 324 Mg Tablet. PO 324 mg BID [facility] Administration Furosemide 40 mg 01/05/20 09:00 Furosemide 40 Mg Tablet PO BID@0900,1800 [facility] Protocol Gabapentin 300 mg 12/29/19 21:00 01/04/20 23:10 Gabapentin 300 Mg Capsule PO 300 mg TID [facility] Administration Heparin Sodium (Porcine) 5,000 unit 01/03/20 18:00 01/05/20 01:09 Heparin Sodium,Porcine 5,000 Unit/Ml Vial SUBCUT 5,000 unit Q8H [facility] Administration Hydralazine HCl 100 mg 01/02/20 21:00 01/04/20 23:10 Hydralazine Hcl 25 Mg Tablet PO 100 mg TID [facility] Administration Protocol Ceftriaxone Sodium 1 gm/ 50 mls @ 100 mls/hr 01/02/20 18:00 01/04/20 18:13 Sodium Chloride IV Infused Q24H [facility] Infusion Insulin Human Lispro 0 unit 12/29/19 21:00 01/04/20 23:14 Insulin Lispro 100 Unit/Ml 3 Ml Vial SUBCUT Not Given QIDACHS [facility] Protocol Isosorbide Mononitrate 120 mg 01/03/20 09:00 01/04/20 09:23 Isosorbide Mononitrate 60 Mg Tab.Er.24h PO 120 mg DAILY [facility] Administration Protocol Levothyroxine Sodium 50 mcg 12/30/19 09:00 01/04/20 09:24 Levothyroxine Sodium 50 Mcg Tablet PO 50 mcg DAILY [facility] Administration Morphine Sulfate 2 mg 01/04/20 14:27 01/05/20 01:09 Morphine Sulfate 2 Mg/Ml Cartridge IVPUSH 2 mg Q4H PRN Administration Pain, Severe (Pain Scale 7-10) Omeprazole 20 mg 01/04/20 14:30 01/05/20 05:48 Omeprazole 20 Mg Capsule.Dr PO 20 mg DAILY@0630 [facility] Administration Ondansetron HCl 4 mg 01/04/20 13:08 01/04/20 14:47 Ondansetron Hcl 4 Mg/2 Ml Vial IVPUSH 4 mg Q8H PRN Administration Nausea and Vomiting Pharmacy Consult 1 each 12/29/19 11:02 Consult Rx Perform Med Rec MISCELLANE ONCE PRN Consult order Sodium Chloride 2 ml 12/30/19 00:00 01/04/20 23:14 0.9 % Sodium Chloride Flush 3 Ml Syringe IVFLUSH 2 ml QSHIFT [facility] Administration Vitamin D 50 mcg 12/30/19 09:00 01/04/20 09:24 Cholecalciferol (Vitamin D3) 25 Mcg Tablet PO 50 mcg DAILY [facility] Administration Time Spent With Patient Time: Total time spent is greater than 50% in coordination of care (as documented) at patient's floor/unit and/or counseling patient: Time with patient: 15 - 24 minutes
[2020-01-05] MEDS: Cholecalciferol (Vitamin D3) 25 MCG TABLET 50 MCG PO (08:53)
[2020-01-05] MEDS: Aspirin Enteric Coated 81 MG TABLET.DR PO (08:53)
[2020-01-05] MEDS: amLODIPine Besylate 5 MG TABLET 10 MG PO (08:54)
[2020-01-05] MEDS: hydrALAZINE HCl 25 MG TABLET 100 MG PO ×3 (08:54→21:35)
[2020-01-05] MEDS: Amiodarone HCL 200 MG TABLET 400 MG PO ×2 (08:55→21:34)
[2020-01-05] MEDS: Furosemide 40 MG TABLET PO ×2 (08:55→17:20)
[2020-01-05] MEDS: carvediloL 3.125 MG TABLET PO (08:55)
[2020-01-05] MEDS: Levothyroxine Sodium 50 MCG TABLET PO (08:56)
[2020-01-05] MEDS: Ferrous Sulfate 324 MG TABLET.DR PO ×2 (08:56→21:31)
[2020-01-05] MEDS: Gabapentin 300 MG CAPSULE PO ×2 (08:56→21:31)
[2020-01-05] MEDS: Isosorbide Mononitrate 60 MG TAB.ER.24H 120 MG PO (08:56)
[2020-01-05] MEDS: 0.9 % Sodium Chloride Flush 3 ML SYRINGE 2 ML IVFLUSH ×3 (08:57→21:31)
[2020-01-05 09:25] LABS: Folate 4.6 ng/mL (> or = 4.0); Vitamin B12 292 pg/mL (200-900)
[2020-01-05 11:29] LABS: Glucose, Whole Blood 178 mg/dL (60-115)
--- NOTE | 2020-01-05 12:08 | P.PNNP_ITS ---
Subjective Subjective Interval history: Seenand examined. 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 No CP/SOB Physical Exam Vital Signs and I&O and Narrative: Vital Signs and I&O: Vital Signs Temp 98.1 F 01/05/20 11:15 Pulse 97 01/05/20 11:15 Resp 20 01/05/20 11:15 BP 152/60 H 01/05/20 11:15 Pulse Ox 96 01/05/20 11:15 Intake & Output 01/04/20 01/05/20 01/05/20 18:59 06:59 18:59 Intake Total 450 / 1460.25 1010.25 / 1460.25 Output Total 1100 / 2200 1100 / 2200 400 / 400 Balance -650 / -739.75 -89.75 / -739.75 -400 / -400 Urine Output (Aver age ml/kg/hr) 1.15 1.15 0.42 Intake: Intake, Oral [place] unt 400 / 1360 960 / 1360 Intake, IV Amoun t 50 / 100.25 50.25 / 100.25 Promethazine H CL 6.25 mg In 0.9 50.25 / 50.25 % Sodium Chlor con 50 ml @ 201 mls/hr IV ONCE ONE Rx#: [id number] cefTRIAXone so dium 1 gm In 0.9 50 / 50 % Sodium Chlor con 50 ml @ 100 mls/hr IV Q24H [facility] Rx#: [id number] Output: Output, Urine Am ount 1100 / 2200 1100 / 2200 400 / 400 Other: Meal Refused No NPO No Breakfast % Eate n 100% 50% Lunch % Eaten 50% Dinner % Eaten 75% Urine Bedside Commode Bedside Commode Urine Color Yellow Body Mass Index 32.1 general, no acute distress Cardiovascular, S1-S2 -- Lower extremity edema improved Lungs - no respiratory distress, scattered wheezing/rales Abdomen-- soft nontender Extremities-- swelling improved Neuro - A&O x3 Laboratory Tests 11/24/19 01/02/20 01/03/20 05:27 05:29 05:27 Creatinine 1.88 H 2.14 H 2.44 H Const: General: comfortable and awake HENMT: Head: Yes normal to inspection Chest: Chest palpation & inspection: normal inspection of the chest Resp: Effort & Inspection: normal respiratory effort Auscultation: diminished lung sounds Cardio: Jugular venous distension: no JVD Rhythm: regular rhythm Extrem: Left lower extremity: edema Details: 1+ Assessment & Plan Assessment and plan (1) Atrial fibrillation with rapid ventricular response: Status: Acute (2) Urinary tract infection: Status: Acute (3) PAF (paroxysmal atrial fibrillation): Status: Acute (4) NSTEMI (non-ST elevated myocardial infarction): Status: Acute (5) 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 TBFOL: much improved after IV diuretics; 3. Anemia: Epo def 4. DM 5. HTN: remains suboptimal REC: incr coreg 6.25 bid and further as need to control BP and as BP permits; decr neurontin 300 bid; protect non-dominat arm for future AVF; adust meds for GFR 20-25ml/min; d/c planning Time Spent With Patient Time: Total time spent is greater than 50% in coordination of care (as brittani preston) at patient's floor/unit and/or counseling patient:
--- NOTE | 2020-01-05 12:51 | PM.IMPN ---
Subjective Subjective Date of Service: 01/05/20 Interval History: seen and examined better, no abdominal pain today ate breakfast sob improved Review of Systems General - no fevers or chills Cardiovascular - no chest pain Respiratory - improving but still sob Abdominal- abd pain resolved, no nausea Physical Exam Vital Signs and I&O and Narrative: Vital Signs and I&O: Vital Signs Temp 98.1 F 01/05/20 11:15 Pulse 97 01/05/20 11:15 Resp 20 01/05/20 11:15 BP 152/60 H 01/05/20 11:15 Pulse Ox 96 01/05/20 11:15 Objective Data Current Medications Generic Name Dose Route Start Last Admin Trade Name Freq PRN Reason Stop Dose Admin Albuterol/Ipratropium 3 ml 12/29/19 20:00 01/05/20 07:56 Albuterol/Iprat 2.5/0.5mg 3 Ml Ampul.Neb INHALE 3 ml RQ6H WHILE AWAKE [facility] Administration Amiodarone HCl 400 mg 01/01/20 21:00 01/05/20 08:55 Amiodarone Hcl 200 Mg Tablet PO 400 mg BID [facility] Administration Amlodipine Besylate 10 mg 01/04/20 09:00 01/05/20 08:54 Amlodipine Besylate 5 Mg Tablet PO 10 mg DAILY [facility] Administration Protocol Aspirin 81 mg 01/02/20 10:35 01/05/20 08:53 Aspirin Enteric Coated 81 Mg Tablet. PO 81 mg DAILY [facility] Administration Atorvastatin Calcium 80 mg 01/02/20 21:00 01/04/20 23:09 Atorvastatin Calcium 80 Mg Tablet PO 80 mg BEDTIME [facility] Administration Carvedilol 6.25 mg 01/05/20 12:14 Carvedilol 6.25 Mg Tablet PO BID [facility] Protocol Ferrous Sulfate 324 mg 12/29/19 21:00 01/05/20 08:56 Ferrous Sulfate 324 Mg Tablet. PO 324 mg BID [facility] Administration Furosemide 40 mg 01/05/20 09:00 01/05/20 08:55 Furosemide 40 Mg Tablet PO 40 mg BID@0900,1800 [facility] Administration Protocol Gabapentin 300 mg 01/05/20 21:00 Gabapentin 300 Mg Capsule PO BID [facility] Heparin Sodium (Porcine) 5,000 unit 01/03/20 18:00 01/05/20 08:56 Heparin Sodium,Porcine 5,000 Unit/Ml Vial SUBCUT 5,000 unit Q8H [facility] Administration Hydralazine HCl 100 mg 01/02/20 21:00 01/05/20 08:54 Hydralazine Hcl 25 Mg Tablet PO 100 mg TID [facility] Administration Protocol Ceftriaxone Sodium 1 gm/ 50 mls @ 100 mls/hr 01/02/20 18:00 01/04/20 18:13 Sodium Chloride IV Infused Q24H [facility] Infusion Insulin Human Lispro 0 unit 12/29/19 21:00 01/05/20 08:57 Insulin Lispro 100 Unit/Ml 3 Ml Vial SUBCUT Not Given QIDACHS [facility] Protocol Isosorbide Mononitrate 120 mg 01/03/20 09:00 01/05/20 08:56 Isosorbide Mononitrate 60 Mg Tab.Er.24h PO 120 mg DAILY [facility] Administration Protocol Levothyroxine Sodium 50 mcg 12/30/19 09:00 01/05/20 08:56 Levothyroxine Sodium 50 Mcg Tablet PO 50 mcg DAILY [facility] Administration Morphine Sulfate 2 mg 01/04/20 14:27 01/05/20 01:09 Morphine Sulfate 2 Mg/Ml Cartridge IVPUSH 2 mg Q4H PRN Administration Pain, Severe (Pain Scale 7-10) Omeprazole 20 mg 01/04/20 14:30 01/05/20 05:48 Omeprazole 20 Mg Capsule.Dr PO 20 mg DAILY@0630 [facility] Administration Ondansetron HCl 4 mg 01/04/20 13:08 01/04/20 14:47 Ondansetron Hcl 4 Mg/2 Ml Vial IVPUSH 4 mg Q8H PRN Administration Nausea and Vomiting Pharmacy Consult 1 each 12/29/19 11:02 Consult Rx Perform Med Rec MISCELLANE ONCE PRN Consult order Sodium Chloride 2 ml 12/30/19 00:00 01/05/20 08:57 0.9 % Sodium Chloride Flush 3 Ml Syringe IVFLUSH 2 ml QSHIFT [facility] Administration Vitamin D 50 mcg 12/30/19 09:00 01/05/20 08:53 Cholecalciferol (Vitamin D3) 25 Mcg Tablet PO 50 mcg DAILY [facility] Administration Labs CBC & Chem 7: 01/05/20 05:41 01/05/20 05:41 Microbiology Microbiology Results: Microbiology 12/29/19 12:06 Blood - Venous Blood Culture - Final No growth after 5 days. 12/29/19 11:56 Blood - Venous Blood Culture - Final No growth after 5 days. 12/29/19 15:50 Urine clean catch - Clean Catch Midstream Urine Culture - Final Klebsiella pneumoniae Progress Note: A&P (1) NSTEMI (non-ST elevated myocardial infarction): Status: Acute (2) CKD (chronic kidney disease) stage 3, GFR 30-59 ml/min: Status: Acute (3) COPD exacerbation: Status: Acute (4) Urinary tract infection: Status: Acute (5) Atrial fibrillation with rapid ventricular response: Status: Acute Assessment and Plan: This is a 79-year-old female who presented to the hospital with weakness, fall and generalized swelling 1. anasarca / CKD, stage III/4 Improved, diursed -- negative about 10L lasix 40mg bid monitor daily renal function 2. new onset atrial fibrillation short-lived Now in sinus on Amio OAC to be determined -- hold off for now given significant anemia. will d/w the patient and about risks vs benefits outpatient monitor 3. NSTEMI asa, statin completed 48 hours heparin gtt 4. Uncontrolled hypertension still uncontrolled imdur 120, hydralazine 100mg tid, norvasc 10mg, lasix 40mg bid, increase coreg to 6.25mg bid 5. COPD exacerbation / acute Respiratory failure with hypoxia resolved PRN updrafts completed 5 days of steriods 6. Diabetes mellitus continue sliding-scale 7. Klebsiella UTI rocephin day #4/5 8. Abdominal Pain ? gastritis not eating and unable to sleep -- belly is soft, but will check CT to rule out anything major. empiric PPI morphine for pain 9. Anemia check occult blood -- pending jonh of CKD procrit ordered by neprhology full code DVT prophylaxis, subcut heparin
[2020-01-05] MEDS: carvediloL 6.25 MG TABLET PO ×2 (15:26→21:34)
[2020-01-05 17:06] LABS: Glucose, Whole Blood 241 mg/dL (60-115)
[2020-01-05] MEDS: cefTRIAXone sodium 1 GM in 0.9 % Sodium Chloride 50 ML IV (17:19)
[2020-01-05] MEDS: Insulin Lispro 100 UNIT/ML 3 ML VIAL SUBCUT ×2 (17:19→21:35)
[2020-01-05 20:38] LABS: Glucose, Whole Blood 237 mg/dL (60-115)
[2020-01-05] MEDS: Atorvastatin Calcium 80 MG TABLET PO (21:31)
[2020-01-06] VITALS (20 sets, daily range): BP systolic 135–166; BP diastolic 50–87; PULSE 57–67; RESP 18–20; TEMP 36.4–37.3; O2SAT 95–97
--- NOTE | 2020-01-06 | ECG_ITS ---
Test Reason : CHEST PAIN Blood Pressure : / mmHG Vent. Rate : 065 BPM Atrial Rate : 065 BPM P-R Int : 170 ms QRS Dur : 082 ms QT Int : 422 ms P-R-T Axes : 021 000 072 degrees QTc Int : 438 ms Sinus rhythm with sinus arrhythmia with Fusion complexes ST elevation consider lateral injury or acute infarct ACUTE MS / STEMI Abnormal ECG When compared with ECG of 01-JAN-2020 11:19, Fusion complexes are now Present Premature atrial complexes are no longer Present ST elevation now present in Lateral leads Referred By: Gennaro Fuller Electronically Signed By:
[2020-01-06] MEDS: Omeprazole 20 MG CAPSULE.DR PO (05:36)
[2020-01-06 06:17] LABS: IgA 87 mg/dL (70-320); IgG 316 mg/dL (600-1540); IgM 264 mg/dL (50-300)
[2020-01-06 06:41] LABS: MANUAL DIFF FLAG NO
[2020-01-06 07:04] LABS: Basophils Percent Auto 0.2 % (0-2); Eosinophils Absolute Auto 0.4 X10*3/uL (0.0-0.4); Eosinophils Percent Auto 3.6 % (0-4); Hematocrit 26.6 % (37-47); Hemoglobin 8.5 g/dl (12.0-16.0); Imm Gran Abs Auto 0.24 X10*3/uL (0.00-0.03); Imm Gran Pct Auto 2.5 % (0.0-0.4); Lymphocytes Absolute Auto 2.2 X10*3/uL (1.2-4.9); Lymphocytes Percent Auto 22.7 % (20-40); Mean Corpuscular Volume 84.4 fL (80-98); Mean Platelet Volume 10.9 fL (9.4-12.3); Monocytes Percent Auto 10.4 % (2-11); Neutrophils Absolute Auto 5.9 X10*3/uL (2.0-8.3); Neutrophils Percent Auto 60.6 % (45-73); Platelet Count 257 X10*3/uL (160-400); Red Blood Count 3.15 X10*6/uL (4.20-5.50); Red Cell Distribution Width 15.9 % (11.0-16.0); White Blood Count 9.7 X10*3/uL (4.8-10.8)
[2020-01-06 07:33] LABS: Anion Gap 14 (12-20); Blood Urea Nitrogen 67 mg/dL (9-16); Carbon Dioxide 26 mmol/L (22-29); Chloride 97 mmol/L (96-108); Estimated Glomerular Filt Rate 15; Glucose Fasting 156 mg/dL (60-99); Potassium 4.1 mmol/l (3.3-5.1); Sodium 133 mmol/L (135-145)
[2020-01-06 07:44] LABS: Glucose, Whole Blood 154 mg/dL (60-115)
[2020-01-06] MEDS: Insulin Lispro 100 UNIT/ML 3 ML VIAL SUBCUT ×4 (08:16→21:43)
[2020-01-06] MEDS: hydrALAZINE HCl 25 MG TABLET 100 MG PO ×3 (08:17→20:29)
[2020-01-06] MEDS: Isosorbide Mononitrate 60 MG TAB.ER.24H 120 MG PO (08:17)
[2020-01-06] MEDS: Cholecalciferol (Vitamin D3) 25 MCG TABLET 50 MCG PO (08:18)
[2020-01-06] MEDS: Aspirin Enteric Coated 81 MG TABLET.DR PO (08:18)
[2020-01-06] MEDS: Levothyroxine Sodium 50 MCG TABLET PO (08:18)
[2020-01-06] MEDS: amLODIPine Besylate 5 MG TABLET 10 MG PO (08:19)
[2020-01-06] MEDS: carvediloL 6.25 MG TABLET PO ×2 (08:19→20:30)
[2020-01-06] MEDS: Ferrous Sulfate 324 MG TABLET.DR PO ×2 (08:19→20:28)
[2020-01-06] MEDS: Amiodarone HCL 200 MG TABLET 400 MG PO ×2 (08:20→20:31)
--- NOTE | 2020-01-06 10:18 | P.PNCA_ITS ---
Subjective Subjective Interval history: Seen and examined. She still looks very weak and deconditioned. She had chest pain last night that last for about half an hour according to her. Then resolved. Review of Systems Review of Systems Cardiac-She had some chest pain last night but now resolved. Shortness of breath is at baseline. no palpitations, dizzy spells or syncopal episodes. Remainder of the 10 system review is negative. Physical Exam Vital Signs and I&O: Vital Signs Temp Pulse Resp BP Pulse Ox 01/06/20 08:20 57 163/67 H 01/06/20 08:19 57 163/67 H 01/06/20 08:17 57 163/67 H 01/06/20 08:00 98.6 F 57 20 163/67 H 95 01/06/20 04:00 98.4 F 60 18 152/64 H 96 01/06/20 00:00 97.5 F 63 18 154/52 H 96 01/05/20 21:34 74 138/60 01/05/20 20:00 97 01/05/20 18:41 97.2 F 60 18 130/60 97 01/05/20 16:00 95 01/05/20 15:26 71 168/98 H 01/05/20 15:25 71 168/98 H 01/05/20 15:23 97.6 F 71 20 168/98 H 96 01/05/20 12:00 95 01/05/20 11:15 98.1 F 97 20 152/60 H 96 Comfortable, no distress No pallor, icterus or cyanosis HEENT -unremarkable JVD- normal Cardiac- normal heart sounds, no murmurs, gallops or rubs, normal PMI Respiratory- few basal crackles Abdomen- soft, nontender Neuro- alert and oriented Lower extremities- no significant edema, warm well perfused Progress Note: A&P Assessment and plan (1) NSTEMI (non-ST elevated myocardial infarction): Status: Acute Assessment and Plan: Asprin/Statins. At some point, she will need perfusion imaging. Medically not stable. She is quite anemic. Blood pressure is also quite high. Timing to be decided. (2) PAF (paroxysmal atrial fibrillation): Status: Acute Assessment and Plan: Continue Amiodarone loading and then we will switch to maintenance amiodarone. She remains in sinus rhythm on the EKG. As the duration of atrial fibrillation was only 6 hours, need to decide on long-term anticoagulation especially she also has significant anemia. Need to weigh the pros and cons. Outpatient Holter or event monitor will be arranged. If anticoagulation started, then can stop aspirin. (3) COPD exacerbation: Status: Acute Assessment and Plan: Per Dr. Fuller. (4) Essential hypertension: Status: Acute Assessment and Plan: Her blood pressure is still on the higher side. We can add Cardura. She is already on numerous medications including high dose of Imdur, amlodipine as well as hydralazine. Coreg can be uptitrated any further due to bradycardia. (5) Anemia: Status: Acute Assessment and Plan: Uncertain etiology. Workup in progress by hospitalist team. Consider blood transfusion considering her coronary history. Fall Risk Details Current Medications: Current Medications Generic Name Dose Route Start Last Admin Trade Name Freq PRN Reason Stop Dose Admin Amiodarone HCl 400 mg 01/01/20 21:00 01/06/20 08:20 Amiodarone Hcl 200 Mg Tablet PO 400 mg BID [facility] Administration Amlodipine Besylate 10 mg 01/04/20 09:00 01/06/20 08:19 Amlodipine Besylate 5 Mg Tablet PO 10 mg DAILY [facility] Administration Protocol Aspirin 81 mg 01/02/20 10:35 01/06/20 08:18 Aspirin Enteric Coated 81 Mg Tablet. PO 81 mg DAILY [facility] Administration Atorvastatin Calcium 80 mg 01/02/20 21:00 01/05/20 21:31 Atorvastatin Calcium 80 Mg Tablet PO 80 mg BEDTIME [facility] Administration Carvedilol 6.25 mg 01/05/20 12:14 01/06/20 08:19 Carvedilol 6.25 Mg Tablet PO 6.25 mg BID [facility] Administration Protocol Doxazosin Mesylate 2 mg 01/06/20 10:00 Doxazosin Mesylate 2 Mg Tablet PO DAILY [facility] Protocol Ferrous Sulfate 324 mg 12/29/19 21:00 01/06/20 08:19 Ferrous Sulfate 324 Mg Tablet. PO 324 mg BID [facility] Administration Gabapentin 300 mg 01/05/20 21:00 01/05/20 21:31 Gabapentin 300 Mg Capsule PO 300 mg BID [facility] Administration Heparin Sodium (Porcine) 5,000 unit 01/03/20 18:00 01/06/20 05:37 Heparin Sodium,Porcine 5,000 Unit/Ml Vial SUBCUT Not Given Q8H [facility] Hydralazine HCl 100 mg 01/02/20 21:00 01/06/20 08:17 Hydralazine Hcl 25 Mg Tablet PO 100 mg TID [facility] Administration Protocol Ceftriaxone Sodium 1 gm/ 50 mls @ 100 mls/hr 01/02/20 18:00 01/05/20 17:50 Sodium Chloride IV 01/07/20 17:59 Infused Q24H [facility] Infusion Insulin Human Lispro 0 unit 12/29/19 21:00 01/06/20 08:16 Insulin Lispro 100 Unit/Ml 3 Ml Vial SUBCUT 2 unit QIDACHS [facility] Administration Protocol Isosorbide Mononitrate 120 mg 01/03/20 09:00 01/06/20 08:17 Isosorbide Mononitrate 60 Mg Tab.Er.24h PO 120 mg DAILY [facility] Administration Protocol Levothyroxine Sodium 50 mcg 12/30/19 09:00 01/06/20 08:18 Levothyroxine Sodium 50 Mcg Tablet PO 50 mcg DAILY [facility] Administration Morphine Sulfate 2 mg 01/04/20 14:27 01/05/20 01:09 Morphine Sulfate 2 Mg/Ml Cartridge IVPUSH 2 mg Q4H PRN Administration Pain, Severe (Pain Scale 7-10) Omeprazole 20 mg 01/04/20 14:30 01/06/20 05:36 Omeprazole 20 Mg Capsule.Dr PO 20 mg DAILY@0630 [facility] Administration Ondansetron HCl 4 mg 01/04/20 13:08 01/04/20 14:47 Ondansetron Hcl 4 Mg/2 Ml Vial IVPUSH 4 mg Q8H PRN Administration Nausea and Vomiting Pharmacy Consult 1 each 12/29/19 11:02 Consult Rx Perform Med Rec MISCELLANE ONCE PRN Consult order Sodium Chloride 2 ml 12/30/19 00:00 01/05/20 21:31 0.9 % Sodium Chloride Flush 3 Ml Syringe IVFLUSH 2 ml QSHIFT [facility] Administration Vitamin D 50 mcg 12/30/19 09:00 01/06/20 08:18 Cholecalciferol (Vitamin D3) 25 Mcg Tablet PO 50 mcg DAILY [facility] Administration Time Spent With Patient Time: Total time spent is greater than 50% in coordination of care (as documented) at patient's floor/unit and/or counseling patient: Time with patient: 15 - 24 minutes
[2020-01-06] MEDS: 0.9 % Sodium Chloride Flush 3 ML SYRINGE 2 ML IVFLUSH ×3 (10:35→21:46)
[2020-01-06] MEDS: Gabapentin 300 MG CAPSULE PO (10:35)
[2020-01-06] MEDS: Heparin Sodium,Porcine 5,000 UNIT/ML VIAL 5000 UNIT SUBCUT ×2 (10:36→17:02)
[2020-01-06] MEDS: Doxazosin Mesylate 2 MG TABLET PO (10:36)
--- NOTE | 2020-01-06 11:23 | MHC.CLN ---
F/U PO INTAKE 75-100% DIET RX: 1500-APPROPRIATE DIET WILL PROMOTE SLOW WT LOSS FOLLOWING
--- NOTE | 2020-01-06 11:34 | PM.PNNEP ---
Subjective Subjective Interval history: Seen and examined. C/O gen pain noted jerky movements Physical Exam Vital Signs and I&O and Narrative: Vital Signs and I&O: Vital Signs Temp 98.6 F 01/06/20 08:00 Pulse 57 01/06/20 10:36 Resp 20 01/06/20 08:00 BP 163/67 H 01/06/20 10:36 Pulse Ox 95 01/06/20 08:00 Intake & Output 01/05/20 01/06/20 01/06/20 18:59 06:59 18:59 Intake Total 50 / 290 240 / 290 240 / 240 Output Total 750 / 1550 800 / 1550 600 / 600 Balance -700 / -1260 -560 / -1260 -360 / -360 Urine Output (Aver age ml/kg/hr) 0.78 0.84 0.63 Intake: Intake, Oral [place] unt 240 / 240 240 / 240 Intake, IV Amoun t 50 / 50 cefTRIAXone so dium 1 gm In 0.9 50 / 50 % Sodium Chlor con 50 ml @ 100 mls/hr IV Q24H [facility] Rx#: [id number] Output: Output, Urine Am ount 750 / 1550 800 / 1550 600 / 600 Other: Breakfast % Eate n 50% 75% Lunch % Eaten 100% Urine Bedside Commode Bedside Commode Bedside Commode Urine Color Yellow Yellow Body Mass Index 32.1 general, no acute distress Cardiovascular, S1-S2 -- Lower extremity edema improved Lungs - no respiratory distress, scattered wheezing/rales Abdomen-- soft nontender Extremities-- swelling improved Neuro - A&O x3 Laboratory Tests 11/24/19 01/02/20 01/03/20 05:27 05:29 05:27 Creatinine 1.88 H 2.14 H 2.44 H Const: General: comfortable and awake HENMT: Head: Yes normal to inspection Chest: Chest palpation & inspection: normal inspection of the chest Resp: Effort & Inspection: normal respiratory effort Auscultation: diminished lung sounds Cardio: Jugular venous distension: no JVD Rhythm: regular rhythm Extrem: Left lower extremity: edema Details: 1+ Assessment & Plan Assessment and plan (1) Atrial fibrillation with rapid ventricular response: Status: Acute (2) Urinary tract infection: Status: Acute (3) PAF (paroxysmal atrial fibrillation): Status: Acute (4) NSTEMI (non-ST elevated myocardial infarction): Status: Acute (5) 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 TBFOL: much improved after IV diuretics; 3. Anemia: Epo def 4. DM 5. HTN: remains suboptimal..despite diuresis and appears at DWT and incr BP meds 6. Gen pain: ques etiol 7. Myoclonic movements: usu expect SCr higher to cause this from uremia; ques d/t neurontin, need to check LFTs REC: agree with holding diuretics; incr cardura; hold neurontin; 24 hr urine for CrCl and Ur Clearance; protect non-dominat arm for future AVF; adust meds for GFR 20-25ml/min; d/c planning Time Spent With Patient Time: Total time spent is greater than 50% in coordination of care (as documented) at patient's floor/unit and/or counseling patient:
[2020-01-06 11:56] LABS: Glucose, Whole Blood 173 mg/dL (60-115)
[2020-01-06 12:50] LABS: Alanine Aminotransferase 14 U/L (0-31)
[2020-01-06 13:09] LABS: Troponin-I High Sensitivity 10.2 ng/L (<3.5-17.0)
[2020-01-06 16:35] LABS: Glucose, Whole Blood 176 mg/dL (60-115)
--- NOTE | 2020-01-06 16:37 | PM.IMPN ---
Subjective Subjective Date of Service: 01/06/20 Interval History: had some cp last night which resolved on its own this AM, complaining of genrealized aches and pains and just not feeling well having jerky movements Review of Systems General - malaise Cardiovascular - no chest pain this am, but had some yesterday Respiratory - no shortness of breath or cough Abdominal- no n/v Physical Exam Vital Signs and I&O and Narrative: Vital Signs and I&O: Vital Signs Temp 99.2 F 01/06/20 16:15 Pulse 63 01/06/20 16:15 Resp 18 01/06/20 16:15 BP 146/50 H 01/06/20 16:15 Pulse Ox 95 01/06/20 15:20 Intake & Output 01/05/20 01/06/20 01/06/20 18:59 06:59 18:59 Intake Total 50 / 290 240 / 290 360 / 360 Output Total 750 / 1550 800 / 1550 800 / 800 Balance -700 / -1260 -560 / -1260 -440 / -440 Urine Output (Aver age ml/kg/hr) 0.78 0.84 0.84 Intake: Intake, Oral [place] unt 240 / 240 360 / 360 Intake (Blood Pr oduct) Amount 0 / 0 Red Blood Cell s Aph (E0686) 0 / 0 Unit [id number] Intake, IV Amoun t 50 / 50 cefTRIAXone so dium 1 gm In 0.9 50 / 50 % Sodium Chlor con 50 ml @ 100 mls/hr IV Q24H [facility]CLUDE 234 BEDS AT [facility] Rx#: [id number] Output: Output, Urine Am ount 750 / 1550 800 / 1550 800 / 800 Other: Breakfast % Eate n 50% 75% Lunch % Eaten 100% 50% Urine Bedside Commode Bedside Commode Bedpan Urine Color Yellow Yellow Body Mass Index 32.1 General - jerky movments, ill appearing Cardiovascular - regular rate and rhythm, S1-S2 Lungs - normal respiratory effort, clear to auscultation bilaterally, no wheezing Abdomen - non-tender Extremities - no edema bilaterally Neuro - awake and alert, jerky movements Objective Data Current Medications Generic Name Dose Route Start Last Admin Trade Name Freq PRN Reason Stop Dose Admin Amiodarone HCl 400 mg 01/01/20 21:00 01/06/20 08:20 Amiodarone Hcl 200 Mg Tablet PO 400 mg BID [facility] Administration Amlodipine Besylate 10 mg 01/04/20 09:00 01/06/20 08:19 Amlodipine Besylate 5 Mg Tablet PO 10 mg DAILY [facility] 234 BEDS AT [facility] Administration Protocol Aspirin 81 mg 01/02/20 10:35 01/06/20 08:18 Aspirin Enteric Coated 81 Mg Tablet. PO 81 mg DAILY [facility] Administration Atorvastatin Calcium 80 mg 01/02/20 21:00 01/05/20 21:31 Atorvastatin Calcium 80 Mg Tablet PO 80 mg BEDTIME [facility] Administration Carvedilol 6.25 mg 01/05/20 12:14 01/06/20 08:19 Carvedilol 6.25 Mg Tablet PO 6.25 mg BID [facility] 234 BEDS AT [facility] Administration Protocol Doxazosin Mesylate 2 mg 01/06/20 10:00 01/06/20 10:36 Doxazosin Mesylate 2 Mg Tablet PO 2 mg DAILY [facility] 234 BEDS AT [facility] Administration Protocol Ferrous Sulfate 324 mg 12/29/19 21:00 01/06/20 08:19 Ferrous Sulfate 324 Mg Tablet. PO 324 mg BID [facility] Administration Heparin Sodium (Porcine) 5,000 unit 01/03/20 18:00 01/06/20 10:36 Heparin Sodium,Porcine 5,000 Unit/Ml Vial SUBCUT 5,000 unit Q8H [facility]CLUDE 234 BEDS AT [facility] Administration Hydralazine HCl 100 mg 01/02/20 21:00 01/06/20 15:33 Hydralazine Hcl 25 Mg Tablet PO 100 mg TID [facility] 234 BEDS AT [facility] Administration Protocol Ceftriaxone Sodium 1 gm/ 50 mls @ 100 mls/hr 01/02/20 18:00 01/05/20 17:50 Sodium Chloride IV 01/07/20 17:59 Infused Q24H [facility]CLUDE 234 BEDS AT [facility] Infusion Insulin Human Lispro 0 unit 12/29/19 21:00 01/06/20 12:07 Insulin Lispro 100 Unit/Ml 3 Ml Vial SUBCUT 2 unit QIDACHS [facility]CLUDE 234 BEDS AT [facility] Administration Protocol Isosorbide Mononitrate 120 mg 01/03/20 09:00 01/06/20 08:17 Isosorbide Mononitrate 60 Mg Tab.Er.24h PO 120 mg DAILY [facility]CLUDE 234 BEDS AT [facility] Administration Protocol Levothyroxine Sodium 50 mcg 12/30/19 09:00 01/06/20 08:18 Levothyroxine Sodium 50 Mcg Tablet PO 50 mcg DAILY [facility]CLUDE 234 BEDS AT [facility] Administration Morphine Sulfate 2 mg 01/04/20 14:27 01/05/20 01:09 Morphine Sulfate 2 Mg/Ml Cartridge IVPUSH 2 mg Q4H PRN Administration Pain, Severe (Pain Scale 7-10) Omeprazole 20 mg 01/04/20 14:30 01/06/20 05:36 Omeprazole 20 Mg Capsule. PO 20 mg DAILY@0630 [facility] Administration Ondansetron HCl 4 mg 01/04/20 13:08 01/04/20 14:47 Ondansetron Hcl 4 Mg/2 Ml Vial IVPUSH 4 mg Q8H PRN Administration Nausea and Vomiting Pharmacy Consult 1 each 12/29/19 11:02 Consult Rx Perform Med Rec MISCELLANE ONCE PRN Consult order Sodium Chloride 2 ml 12/30/19 00:00 01/06/20 15:34 0.9 % Sodium Chloride Flush 3 Ml Syringe IVFLUSH 2 ml QSHIFT [facility] Administration Vitamin D 50 mcg 12/30/19 09:00 01/06/20 08:18 Cholecalciferol (Vitamin D3) 25 Mcg Tablet PO 50 mcg DAILY [facility] Administration Labs CBC & Chem 7: 01/06/20 05:25 01/06/20 05:24 Microbiology Microbiology Results: Microbiology 12/29/19 12:06 Blood - Venous Blood Culture - Final No growth after 5 days. 12/29/19 11:56 Blood - Venous Blood Culture - Final No growth after 5 days. 12/29/19 15:50 Urine clean catch - Clean Catch Midstream Urine Culture - Final Klebsiella pneumoniae Progress Note: A&P (1) NSTEMI (non-ST elevated myocardial infarction): Status: Acute (2) CKD (chronic kidney disease) stage 3, GFR 30-59 ml/min: Status: Acute (3) COPD exacerbation: Status: Acute (4) Urinary tract infection: Status: Acute (5) Atrial fibrillation with rapid ventricular response: Status: Acute Assessment and Plan: This is a 79-year-old female who presented to the hospital with weakness, fall and generalized swelling 1. anasarca / CKD, stage III/4 SCr increased stop lasix today daily labs monitor 2. new onset atrial fibrillation short-lived -- 6 hours on Amio-- loading x 2 weeks, then 200mg po daily OAC to be determined -- hold off for now given significant anemia. to d/w the patient and about risks vs benefits outpatient monitor 3. NSTEMI asa, statin completed 48 hours heparin gtt repeat trop nl. 4. Uncontrolled hypertension imdur 120, hydralazine 100mg tid, norvasc 10mg, lasix 40mg bid, increase coreg to 6.25mg bid cardura added 5. COPD exacerbation / acute Respiratory failure with hypoxia resolved PRN updrafts completed 5 days of steriods 6. Diabetes mellitus continue sliding-scale 7. Klebsiella UTI completed 5 days of iv rocephin 8. Abdominal Pain maybe some gastritis empiric ppi 9. Anemia check occult blood -- pending likley of CKD procrit ordered by neprhology will give 1 unit prbc 10. ? jerky movements ? due to gabapentin, discontinued per nephro recs monitor full code DVT prophylaxis, subcut heparin
[2020-01-06] MEDS: Furosemide 20 MG/2 ML VIAL IVPUSH (19:38)
[2020-01-06] MEDS: cefTRIAXone sodium 1 GM in 0.9 % Sodium Chloride 50 ML IV (20:28)
[2020-01-06] MEDS: Atorvastatin Calcium 80 MG TABLET PO (20:31)
[2020-01-06 21:18] LABS: Glucose, Whole Blood 164 mg/dL (60-115)
[2020-01-07] VITALS (13 sets, daily range): BP systolic 146–167; BP diastolic 52–90; PULSE 55–68; RESP 18–20; TEMP 36.8–37.3; O2SAT 95–97
[2020-01-07] MEDS: Heparin Sodium,Porcine 5,000 UNIT/ML VIAL 5000 UNIT SUBCUT ×3 (01:23→17:07)
[2020-01-07] MEDS: Omeprazole 20 MG CAPSULE.DR PO (05:58)
[2020-01-07 07:15] LABS: MANUAL DIFF FLAG NO
[2020-01-07 07:29] LABS: Basophils Percent Auto 0.3 % (0-2); Eosinophils Absolute Auto 0.3 X10*3/uL (0.0-0.4); Eosinophils Percent Auto 2.8 % (0-4); Hematocrit 28.6 % (37-47); Hemoglobin 9.2 g/dl (12.0-16.0); Imm Gran Abs Auto 0.29 X10*3/uL (0.00-0.03); Imm Gran Pct Auto 3.1 % (0.0-0.4); Lymphocytes Absolute Auto 1.8 X10*3/uL (1.2-4.9); Mean Corpuscular HGB Conc 32.2 g/dl (31.0-35.0); Mean Corpuscular Hemoglobin 26.3 pg (27.0-33.0); Mean Corpuscular Volume 81.7 fL (80-98); Mean Platelet Volume 10.9 fL (9.4-12.3); Monocytes Absolute Auto 0.9 X10*3/uL (0.1-1.2); Monocytes Percent Auto 9.4 % (2-11); Neutrophils Absolute Auto 5.9 X10*3/uL (2.0-8.3); Neutrophils Percent Auto 64.4 % (45-73); Platelet Count 236 X10*3/uL (160-400); Red Cell Distribution Width 16.8 % (11.0-16.0); White Blood Count 9.2 X10*3/uL (4.8-10.8)
[2020-01-07 07:54] LABS: Anion Gap 15 (12-20); Blood Urea Nitrogen 67 mg/dL (9-16); Calcium 7.9 mg/dL (8.4-10.2); Carbon Dioxide 24 mmol/L (22-29); Chloride 98 mmol/L (96-108); Creatinine Clr Calc Pharmacy 14.3; Estimated Glomerular Filt Rate 14; Glucose Fasting 133 mg/dL (60-99); Potassium 3.8 mmol/l (3.3-5.1); Sodium 133 mmol/L (135-145)
[2020-01-07 08:09] LABS: Glucose, Whole Blood 126 mg/dL (60-115)
[2020-01-07] MEDS: Ferrous Sulfate 324 MG TABLET.DR PO ×2 (09:24→20:50)
[2020-01-07] MEDS: Isosorbide Mononitrate 60 MG TAB.ER.24H 120 MG PO (09:26)
[2020-01-07] MEDS: Doxazosin Mesylate 2 MG TABLET PO ×2 (09:26→18:02)
[2020-01-07] MEDS: Cholecalciferol (Vitamin D3) 25 MCG TABLET 50 MCG PO (09:27)
[2020-01-07] MEDS: Amiodarone HCL 200 MG TABLET 400 MG PO ×2 (09:27→20:49)
[2020-01-07] MEDS: hydrALAZINE HCl 25 MG TABLET 100 MG PO ×3 (09:28→20:51)
[2020-01-07] MEDS: 0.9 % Sodium Chloride Flush 3 ML SYRINGE 2 ML IVFLUSH ×3 (09:28→20:53)
[2020-01-07] MEDS: carvediloL 6.25 MG TABLET PO (09:29)
[2020-01-07] MEDS: amLODIPine Besylate 5 MG TABLET 10 MG PO (09:29)
[2020-01-07] MEDS: Aspirin Enteric Coated 81 MG TABLET.DR PO (09:29)
[2020-01-07] MEDS: Levothyroxine Sodium 50 MCG TABLET PO (09:29)
--- NOTE | 2020-01-07 10:44 | PM.PNNEP ---
Subjective Subjective Interval history: had some cp last night which resolved on its own this AM, complaining of genrealized aches and pains and just not feeling well having jerky movements Physical Exam Vital Signs: Vital Signs: Vital Signs Temp Pulse Resp BP Pulse Ox 01/07/20 09:29 68 164/90 H 01/07/20 09:28 68 164/90 H 01/07/20 09:26 56 164/90 H 01/07/20 08:00 98.8 F 56 20 164/90 H 95 01/07/20 03:07 98.5 F 55 20 01/06/20 23:43 98.2 F 58 20 162/71 H 95 01/06/20 20:31 67 153/52 H 01/06/20 20:30 67 153/52 H 01/06/20 20:29 67 153/52 H 01/06/20 20:00 98.8 F 20 166/72 H 97 01/06/20 19:30 98.9 F 67 18 153/52 H 01/06/20 16:15 99.2 F 63 18 146/50 H 01/06/20 16:03 60 20 140/56 H 01/06/20 16:00 95 01/06/20 15:33 60 140/56 H 01/06/20 15:20 98.3 F 60 20 140/56 H 95 01/06/20 12:00 95 01/06/20 11:53 98.1 F 60 20 135/87 96 Body Mass Index 32.1 Const: General: cooperative Resp: Effort & Inspection: no cough GI: Palpation (GI): Soft to palpation Neuro: Motor exam (neuro): No Asterixis during motor activity present Assessment & Plan Assessment and plan (1) CKD (chronic kidney disease) stage 3, GFR 30-59 ml/min: Status: Acute Assessment and Plan: ADvanced CKD DN by biopsy Approaching ESRD NO s/s o f uremia Check 24 hr urine
--- NOTE | 2020-01-07 11:51 | P.PNCA_ITS ---
Subjective Subjective Interval history: Continues to be deconditioned but no new cardiac symptoms at this time. Review of Systems Review of Systems Cardiac- no angina, shortness of breath, palpitations, dizzy spells or syncopal episodes. Generalized -deconditioned; remainder of the 10 system review is negative. Physical Exam Vital Signs: Vital Signs Temp Pulse Resp BP Pulse Ox 01/07/20 09:29 68 164/90 H 01/07/20 09:28 68 164/90 H 01/07/20 09:26 56 164/90 H 01/07/20 08:00 98.8 F 56 20 164/90 H 95 01/07/20 03:07 98.5 F 55 20 01/06/20 23:43 98.2 F 58 20 162/71 H 95 01/06/20 20:31 67 153/52 H 01/06/20 20:30 67 153/52 H 01/06/20 20:29 67 153/52 H 01/06/20 20:00 98.8 F 20 166/72 H 97 01/06/20 19:30 98.9 F 67 18 153/52 H 01/06/20 16:15 99.2 F 63 18 146/50 H 01/06/20 16:03 60 20 140/56 H 01/06/20 16:00 95 01/06/20 15:33 60 140/56 H 01/06/20 15:20 98.3 F 60 20 140/56 H 95 01/06/20 12:00 95 01/06/20 11:53 98.1 F 60 20 135/87 96 Const General: cooperative, comfortable and no acute distress Orientation/consciousness: patient oriented x3 HENMT Other: Unremarkable Neck Neck: Yes normal visual inspection Chest Chest palpation & inspection: normal inspection of the chest Resp Other: Diminished breath sounds bilaterally with some scattered crackles Auscultation: wheezes Cardio Other: 2/6 soft systolic murmur Jugular venous distension: no JVD Palpation: normal PMI Heart sounds: S1 normal heart sound present, S2 normal heart sound present, no g allops and no rubs GI Palpation (GI): Soft to palpation Back/Spine/Pelvis Other: unremarkable Skin General skin exam: no rashes or lesions noted Neuro General: patient oriented x3 Extrem General: Yes no clubbing, cyanosis or edema Psych Mental Status: mental status grossly normal Progress Note: A&P Assessment and plan (1) NSTEMI (non-ST elevated myocardial infarction): Status: Acute Assessment and Plan: Asprin/Statins. At some point, she will need perfusion imaging. to be decided. (2) PAF (paroxysmal atrial fibrillation): Status: Acute Assessment and Plan: Continue Amiodarone loading and then we will switch to maintenance amiodarone. She remains in sinus rhythm on the EKG. As the duration of atrial fibrillation was only 6 hours, need to decide on long-term anticoagulation carey ecially she also has significant anemia. Need to weigh the pros and cons. Outpatient Holter or event monitor will be arranged. If anticoagulation started, then can stop aspirin. (3) COPD exacerbation: Status: Acute Assessment and Plan: Per Dr. Fuller. (4) Essential hypertension: Status: Acute Assessment and Plan: Her blood pressure is still on the higher side. Increase Cardura dosing. She is already on numerous medications including high dose of Imdur, amlodipine as well as hydralazine. Coreg cannot be uptitrated any further due to bradycardia. (5) Anemia: Status: Acute Assessment and Plan: Uncertain etiology. Workup in progress by hospitalist team. s/p blood transfusion considering her coronary history. Fall Risk Details Current Medications: Current Medications Generic Name Dose Route Start Last Admin Trade Name Freq PRN Reason Stop Dose Admin Amiodarone HCl 400 mg 01/01/20 21:00 01/07/20 09:27 Amiodarone Hcl 200 Mg Tablet PO 400 mg BID [facility] Administration Amlodipine Besylate 10 mg 01/04/20 09:00 01/07/20 09:29 Amlodipine Besylate 5 Mg Tablet PO 10 mg DAILY [facility] Administration Protocol Aspirin 81 mg 01/02/20 10:35 01/07/20 09:29 Aspirin Enteric Coated 81 Mg Tablet. PO 81 mg DAILY [facility] Administration Atorvastatin Calcium 80 mg 01/02/20 21:00 01/06/20 20:31 Atorvastatin Calcium 80 Mg Tablet PO 80 mg BEDTIME [facility] Administration Carvedilol 6.25 mg 01/05/20 12:14 01/07/20 09:29 Carvedilol 6.25 Mg Tablet PO 6.25 mg BID [facility] Administration Protocol Doxazosin Mesylate 2 mg 01/06/20 10:00 01/07/20 09:26 Doxazosin Mesylate 2 Mg Tablet PO 2 mg DAILY [facility] Administration Protocol Ferrous Sulfate 324 mg 12/29/19 21:00 01/07/20 09:24 Ferrous Sulfate 324 Mg Tablet. PO 324 mg BID [facility] Administration Heparin Sodium (Porcine) 5,000 unit 01/03/20 18:00 01/07/20 09:30 Heparin Sodium,Porcine 5,000 Unit/Ml Vial SUBCUT 5,000 unit Q8H [facility] Administration Hydralazine HCl 100 mg 01/02/20 21:00 01/07/20 09:28 Hydralazine Hcl 25 Mg Tablet PO 100 mg TID [facility] Administration Protocol Ceftriaxone Sodium 1 gm/ 50 mls @ 100 mls/hr 01/02/20 18:00 01/06/20 21:05 Sodium Chloride IV 01/07/20 17:59 Infused Q24H [facility] Infusion Insulin Human Lispro 0 unit 12/29/19 21:00 01/07/20 09:30 Insulin Lispro 100 Unit/Ml 3 Ml Vial SUBCUT Not Given QIDACHS [facility] Protocol Isosorbide Mononitrate 120 mg 01/03/20 09:00 01/07/20 09:26 Isosorbide Mononitrate 60 Mg Tab.Er.24h PO 120 mg DAILY [facility] Administration Protocol Levothyroxine Sodium 50 mcg 12/30/19 09:00 01/07/20 09:29 Levothyroxine Sodium 50 Mcg Tablet PO 50 mcg DAILY [facility] Administration Morphine Sulfate 2 mg 01/04/20 14:27 01/05/20 01:09 Morphine Sulfate 2 Mg/Ml Cartridge IVPUSH 2 mg Q4H PRN Administration Pain, Severe (Pain Scale 7-10) Omeprazole 20 mg 01/04/20 14:30 01/07/20 05:58 Omeprazole 20 Mg Capsule. PO 20 mg DAILY@0630 [facility] Administration Ondansetron HCl 4 mg 01/04/20 13:08 01/04/20 14:47 Ondansetron Hcl 4 Mg/2 Ml Vial IVPUSH 4 mg Q8H PRN Administration Nausea and Vomiting Pharmacy Consult 1 each 12/29/19 11:02 Consult Rx Perform Med Rec MISCELLANE ONCE PRN Consult order Sodium Chloride 2 ml 12/30/19 00:00 01/07/20 09:28 0.9 % Sodium Chloride Flush 3 Ml Syringe IVFLUSH 2 ml QSHIFT [facility] Administration Vitamin D 50 mcg 12/30/19 09:00 01/07/20 09:27 Cholecalciferol (Vitamin D3) 25 Mcg Tablet PO 50 mcg DAILY [facility] Administration Time Spent With Patient Time: Total time spent is greater than 50% in coordination of care (as documented) at patient's floor/unit and/or counseling patient: Time with patient: 15 - 24 minutes
[2020-01-07] MEDS: Insulin Lispro 100 UNIT/ML 3 ML VIAL SUBCUT ×3 (11:59→20:48)
[2020-01-07 12:16] LABS: Glucose, Whole Blood 200 mg/dL (60-115)
[2020-01-07 13:21] LABS: Total Volume 24 Hour Urine 2250 mL
[2020-01-07 14:08] LABS: Creatinine, mg/dL 46.17
[2020-01-07 15:07] LABS: Protein 24 Hr Urine 9338 mg/Day (<150); Protein mg/dL 415 mg/dL; Total Volume 24 Hour Urine 2250 mL
[2020-01-07 17:02] LABS: Glucose, Whole Blood 152 mg/dL (60-115)
--- NOTE | 2020-01-07 17:26 | HO.PM.IMPN ---
Subjective Subjective Date of Service: 01/07/20 Interval History: seen and examined this AM bedside d/w her and him at [facility] re: the possibility of needing dialysis real soon. initially she was hesistant, but now seems like she will accept it overall today feels better, but still not great Review of Systems General - no fevers or chills, tired Cardiovascular - no chest pain this Am Respiratory - no shortness of breath or cough Abdominal- no abdominal pain, nausea, vomiting, diarrhea - tolerating diet Physical Exam Vital Signs: Vital Signs: Vital Signs Temp Pulse Resp BP Pulse Ox 01/07/20 15:26 99.2 F 56 18 167/68 H 97 01/07/20 15:09 57 158/52 H 01/07/20 12:00 98.6 F 56 20 146/66 H 97 01/07/20 09:29 68 164/90 H 01/07/20 09:28 68 164/90 H 01/07/20 09:26 56 164/90 H 01/07/20 08:00 98.8 F 56 20 164/90 H 95 01/07/20 03:07 98.5 F 55 20 01/06/20 23:43 98.2 F 58 20 162/71 H 95 01/06/20 20:31 67 153/52 H 01/06/20 20:30 67 153/52 H 01/06/20 20:29 67 153/52 H 01/06/20 20:00 98.8 F 20 166/72 H 97 01/06/20 19:30 98.9 F 67 18 153/52 H Body Mass Index 32.1 General - no jerky movements, appears better this AM Cardiovascular - regular rate and rhythm, S1-S2 Lungs - trace rales Abdomen - non-tender Extremities - no edema bilaterally Neuro - awake and alert, no clunus Objective Data Current Medications Generic Name Dose Route Start Last Admin Trade Name Freq PRN Reason Stop Dose Admin Amiodarone HCl 400 mg 01/01/20 21:00 01/07/20 09:27 Amiodarone Hcl 200 Mg Tablet PO 400 mg BID [facility] Administration Amlodipine Besylate 10 mg 01/04/20 09:00 01/07/20 09:29 Amlodipine Besylate 5 Mg Tablet PO 10 mg DAILY [facility] Administration Protocol Aspirin 81 mg 01/02/20 10:35 01/07/20 09:29 Aspirin Enteric Coated 81 Mg Tablet. PO 81 mg DAILY [facility] Administration Atorvastatin Calcium 80 mg 01/02/20 21:00 01/06/20 20:31 Atorvastatin Calcium 80 Mg Tablet PO 80 mg BEDTIME [facility] Administration Carvedilol 6.25 mg 01/05/20 12:14 01/07/20 09:29 Carvedilol 6.25 Mg Tablet PO 6.25 mg BID [facility] Administration Protocol Doxazosin Mesylate 2 mg 01/06/20 10:00 01/07/20 09:26 Doxazosin Mesylate 2 Mg Tablet PO 2 mg DAILY [facility] Administration Protocol Ferrous Sulfate 324 mg 12/29/19 21:00 01/07/20 09:24 Ferrous Sulfate 324 Mg Tablet. PO 324 mg BID [facility] Administration Heparin Sodium (Porcine) 5,000 unit 01/03/20 18:00 01/07/20 17:07 Heparin Sodium,Porcine 5,000 Unit/Ml Vial SUBCUT 5,000 unit Q8H [facility] Administration Hydralazine HCl 100 mg 01/02/20 21:00 01/07/20 15:09 Hydralazine Hcl 25 Mg Tablet PO 100 mg TID [facility] Administration Protocol Ceftriaxone Sodium 1 gm/ 50 mls @ 100 mls/hr 01/02/20 18:00 01/06/20 21:05 Sodium Chloride IV 01/07/20 17:59 Infused Q24H [facility] Infusion Insulin Human Lispro 0 unit 12/29/19 21:00 01/07/20 17:07 Insulin Lispro 100 Unit/Ml 3 Ml Vial SUBCUT 2 unit QIDACHS [facility] Administration Protocol Isosorbide Mononitrate 120 mg 01/03/20 09:00 01/07/20 09:26 Isosorbide Mononitrate 60 Mg Tab.Er.24h PO 120 mg DAILY [facility] Administration Protocol Levothyroxine Sodium 50 mcg 12/30/19 09:00 01/07/20 09:29 Levothyroxine Sodium 50 Mcg Tablet PO 50 mcg DAILY [facility] Administration Morphine Sulfate 2 mg 01/04/20 14:27 01/05/20 01:09 Morphine Sulfate 2 Mg/Ml Cartridge IVPUSH 2 mg Q4H PRN Administration Pain, Severe (Pain Scale 7-10) Omeprazole 20 mg 01/04/20 14:30 01/07/20 05:58 Omeprazole 20 Mg Capsule. PO 20 mg DAILY@0630 [facility] Administration Ondansetron HCl 4 mg 01/04/20 13:08 01/04/20 14:47 Ondansetron Hcl 4 Mg/2 Ml Vial IVPUSH 4 mg Q8H PRN Administration Nausea and Vomiting Pharmacy Consult 1 each 12/29/19 11:02 Consult Rx Perform Med Rec MISCELLANE ONCE PRN Consult order Sodium Chloride 2 ml 12/30/19 00:00 01/07/20 15:10 0.9 % Sodium Chloride Flush 3 Ml Syringe IVFLUSH 2 ml QSHIFT [facility] Administration Vitamin D 50 mcg 12/30/19 09:00 01/07/20 09:27 Cholecalciferol (Vitamin D3) 25 Mcg Tablet PO 50 mcg DAILY [facility] Administration Labs CBC & Chem 7: 01/07/20 06:47 01/07/20 06:47 Microbiology Microbiology Results: Microbiology 12/29/19 12:06 Blood - Venous Blood Culture - Final No growth after 5 days. 12/29/19 11:56 Blood - Venous Blood Culture - Final No growth after 5 days. 12/29/19 15:50 Urine clean catch - Clean Catch Midstream Urine Culture - Final Klebsiella pneumoniae Assessment and Plan (1) NSTEMI (non-ST elevated myocardial infarction): Status: Acute (2) CKD (chronic kidney disease) stage 3, GFR 30-59 ml/min: Status: Acute (3) COPD exacerbation: Status: Acute (4) Urinary tract infection: Status: Acute (5) Atrial fibrillation with rapid ventricular response: Status: Acute Assessment and Plan: This is a 79-year-old female who presented to the hospital with weakness, fall and generalized swelling 1. anasarca / CKD, stage III/4 diuretics on hold SCr continues to climb 24 hour urine collection on going nephrology on board appears to be heading towards dialysis 2. new onset atrial fibrillation short-lived -- 6 hours on Amio-- loading x 2 weeks, then 200mg po daily OAC to be determined -- hold off for now given significant anemia. d/w her and re oac -- to discuss again tomorrow, remain undecided 3. NSTEMI asa, statin completed 48 hours heparin gtt repeat trop nl. 4. Uncontrolled hypertension imdur 120, hydralazine 100mg tid, norvasc 10mg, lasix 40mg bid, increase coreg to 6.25mg bid cardura added, increase to 4mg 5. COPD exacerbation / acute Respiratory failure with hypoxia resolved PRN updrafts completed 5 days of steriods 6. Diabetes mellitus continue sliding-scale 7. Klebsiella UTI completed 5 days of iv rocephin 8. Abdominal Pain maybe some gastritis empiric ppi 9. Anemia check occult blood -- pending likely of ckd h/h improved s/p prbc 10. ? jerky movements resolved ? due to gabapenin stopped with discontinuation of gabapentin full code DVT prophylaxis, subcut heparin
[2020-01-07] MEDS: Atorvastatin Calcium 80 MG TABLET PO (20:50)
[2020-01-07] MEDS: traZODone HCL 25 MG HALFTAB PO (20:50)
[2020-01-07 21:14] LABS: Glucose, Whole Blood 167 mg/dL (60-115)
[2020-01-08] VITALS (13 sets, daily range): BP systolic 144–170; BP diastolic 62–90; PULSE 54–70; RESP 18–20; TEMP 36.4–37.1; O2SAT 95–98
[2020-01-08] MEDS: Heparin Sodium,Porcine 5,000 UNIT/ML VIAL 5000 UNIT SUBCUT ×3 (01:10→16:43)
[2020-01-08] MEDS: diphenhydrAMINE HCL 50 MG/ML VIAL 25 MG IVPUSH (01:29)
[2020-01-08] MEDS: Omeprazole 20 MG CAPSULE.DR PO (05:30)
[2020-01-08 07:58] LABS: Glucose, Whole Blood 126 mg/dL (60-115)
[2020-01-08] MEDS: hydrALAZINE HCl 25 MG TABLET 100 MG PO ×3 (08:14→21:41)
[2020-01-08] MEDS: Cholecalciferol (Vitamin D3) 25 MCG TABLET 50 MCG PO (08:14)
[2020-01-08] MEDS: Isosorbide Mononitrate 60 MG TAB.ER.24H 120 MG PO (08:14)
[2020-01-08] MEDS: Levothyroxine Sodium 50 MCG TABLET PO (08:15)
[2020-01-08] MEDS: carvediloL 6.25 MG TABLET PO ×2 (08:15→21:42)
[2020-01-08] MEDS: amLODIPine Besylate 5 MG TABLET 10 MG PO (08:15)
[2020-01-08] MEDS: Doxazosin Mesylate 2 MG TABLET 4 MG PO ×2 (08:15→16:43)
[2020-01-08] MEDS: Amiodarone HCL 200 MG TABLET 400 MG PO ×2 (08:16→21:41)
[2020-01-08] MEDS: Ferrous Sulfate 324 MG TABLET.DR PO ×2 (08:16→21:42)
[2020-01-08] MEDS: Aspirin Enteric Coated 81 MG TABLET.DR PO (08:16)
[2020-01-08] MEDS: 0.9 % Sodium Chloride Flush 3 ML SYRINGE 2 ML IVFLUSH ×3 (08:16→23:41)
[2020-01-08 11:26] LABS: Glucose, Whole Blood 218 mg/dL (60-115)
[2020-01-08] MEDS: Insulin Lispro 100 UNIT/ML 3 ML VIAL SUBCUT ×2 (11:35→16:42)
[2020-01-08 11:52] LABS: Anion Gap 12 (12-20); Blood Urea Nitrogen 61 mg/dL (9-16); Carbon Dioxide 24 mmol/L (22-29); Chloride 98 mmol/L (96-108); Creatinine Clr Calc Pharmacy 14.9; Estimated Glomerular Filt Rate 15; Glucose Random 240 mg/dL (60-115); Potassium 3.4 mmol/l (3.3-5.1); Sodium 131 mmol/L (135-145)
--- NOTE | 2020-01-08 14:31 | PM.PNNEP ---
Subjective Subjective Interval history: Events noted Feels better Anxious about dialysis 24 hr urine pending Physical Exam Vital Signs: Vital Signs: Vital Signs Temp Pulse Resp BP Pulse Ox 01/08/20 12:00 98.0 F 54 18 150/81 H 96 01/08/20 08:16 55 170/90 H 01/08/20 08:15 55 170/90 H 01/08/20 08:14 55 170/90 H 01/08/20 07:26 97.6 F 55 20 170/90 H 97 01/08/20 03:41 98.6 F 56 18 155/68 H 95 01/07/20 23:39 98.6 F 57 18 163/70 H 95 01/07/20 20:51 56 165/73 H 01/07/20 20:49 56 165/73 H 01/07/20 19:25 98.2 F 18 165/73 H 97 01/07/20 18:02 56 167/68 H 01/07/20 15:26 99.2 F 56 18 167/68 H 97 01/07/20 15:09 57 158/52 H Body Mass Index 32.1 Const: General: cooperative Orientation/consciousness: oriented to person HENMT: Head: Yes normal to inspection Eyes: General: appearance normal, both eyes and all related structures Chest: Chest palpation & inspection: normal inspection of the chest Resp: Effort & Inspection: no cough and decreased respiratory effort Auscultation: rhonchi Cardio: Palpation: normal PMI Heart sounds: no gallops GI: Inspection: Yes normal to inspection Palpation (GI): Soft to palpation Auscultation: normal bowel sounds Skin: General skin exam: dry skin Rashes: no rashes Neuro: General: oriented to person Motor exam (neuro): no asterixis and No Asterixis during motor activity present Assessment & Plan Assessment and plan (1) CKD (chronic kidney disease) stage 3, GFR 30-59 ml/min: Status: Acute Assessment and Plan: Advanced CKD DN by biopsy Approaching ESRD NO s/s o f uremia Discussed possible need fo rdialysis ; Although she is apprehensive,she is agreeable. Check 24 hr urine
--- NOTE | 2020-01-08 15:58 | P.PNIM_ITS ---
Subjective Subjective Date of Service: 01/08/20 Interval History: seen and examined this AM feeling slowly better no cp or abd pain ate her breakfast Review of Systems General - no fevers or chills, tired Cardiovascular - no chest pain Respiratory - no shortness of breath or cough Abdominal- no abdominal pain, nausea, vomiting, diarrhea Physical Exam Vital Signs: Vital Signs: Vital Signs Temp Pulse Resp BP Pulse Ox 01/08/20 12:00 98.0 F 54 18 150/81 H 96 01/08/20 08:16 55 170/90 H 01/08/20 08:15 55 170/90 H 01/08/20 08:14 55 170/90 H 01/08/20 07:26 97.6 F 55 20 170/90 H 97 01/08/20 03:41 98.6 F 56 18 155/68 H 95 01/07/20 23:39 98.6 F 57 18 163/70 H 95 01/07/20 20:51 56 165/73 H 01/07/20 20:49 56 165/73 H 01/07/20 19:25 98.2 F 18 165/73 H 97 01/07/20 18:02 56 167/68 H Body Mass Index 32.1 General - appears to be doing better daily Cardiovascular - regular rate and rhythm, S1-S2 Lungs - trace rales Abdomen - non-tender Extremities - no edema bilaterally Neuro - awake and alert, no clunus Objective Data Current Medications Generic Name Dose Route Start Last Admin Trade Name Freq PRN Reason Stop Dose Admin Amiodarone HCl 400 mg 01/01/20 21:00 01/08/20 08:16 Amiodarone Hcl 200 Mg Tablet PO 400 mg BID [facility] Administration Amlodipine Besylate 10 mg 01/04/20 09:00 01/08/20 08:15 Amlodipine Besylate 5 Mg Tablet PO 10 mg DAILY [facility] Administration Protocol Aspirin 81 mg 01/02/20 10:35 01/08/20 08:16 Aspirin Enteric Coated 81 Mg Tablet.Dr PO 81 mg DAILY [facility] Administration Atorvastatin Calcium 80 mg 01/02/20 21:00 01/07/20 20:50 Atorvastatin Calcium 80 Mg Tablet PO 80 mg BEDTIME [facility] Administration Carvedilol 6.25 mg 01/05/20 12:14 01/08/20 08:15 Carvedilol 6.25 Mg Tablet PO 6.25 mg BID [facility] Administration Protocol Doxazosin Mesylate 4 mg 01/08/20 09:00 01/08/20 08:15 Doxazosin Mesylate 2 Mg Tablet PO 4 mg DAILY [facility] Administration Protocol Ferrous Sulfate 324 mg 12/29/19 21:00 01/08/20 08:16 Ferrous Sulfate 324 Mg Tablet. PO 324 mg BID [facility] Administration Heparin Sodium (Porcine) 5,000 unit 01/03/20 18:00 01/08/20 10:38 Heparin Sodium,Porcine 5,000 Unit/Ml Vial SUBCUT 5,000 unit Q8H [facility] Administration Hydralazine HCl 100 mg 01/02/20 21:00 01/08/20 08:14 Hydralazine Hcl 25 Mg Tablet PO 100 mg TID [facility] Administration Protocol Insulin Human Lispro 0 unit 12/29/19 21:00 01/08/20 11:35 Insulin Lispro 100 Unit/Ml 3 Ml Vial SUBCUT 4 unit QIDACHS [facility] Administration Protocol Isosorbide Mononitrate 120 mg 01/03/20 09:00 01/08/20 08:14 Isosorbide Mononitrate 60 Mg Tab.Er.24h PO 120 mg DAILY [facility] Administration Protocol Levothyroxine Sodium 50 mcg 12/30/19 09:00 01/08/20 08:15 Levothyroxine Sodium 50 Mcg Tablet PO 50 mcg DAILY [facility] Administration Morphine Sulfate 2 mg 01/04/20 14:27 01/05/20 01:09 Morphine Sulfate 2 Mg/Ml Cartridge IVPUSH 2 mg Q4H PRN Administration Pain, Severe (Pain Scale 7-10) Omeprazole 20 mg 01/04/20 14:30 01/08/20 05:30 Omeprazole 20 Mg Capsule. PO 20 mg DAILY@0630 [facility] Administration Ondansetron HCl 4 mg 01/04/20 13:08 01/04/20 14:47 Ondansetron Hcl 4 Mg/2 Ml Vial IVPUSH 4 mg Q8H PRN Administration Nausea and Vomiting Pharmacy Consult 1 each 12/29/19 11:02 Consult Rx Perform Med Rec MISCELLANE ONCE PRN Consult order Sodium Chloride 2 ml 12/30/19 00:00 01/08/20 08:16 0.9 % Sodium Chloride Flush 3 Ml Syringe IVFLUSH 2 ml QSHIFT [facility] Administration Trazodone HCl 25 mg 01/07/20 19:36 01/07/20 20:50 Trazodone Hcl 25 Mg Halftab PO 25 mg BEDTIME PRN Administration Insomnia Vitamin D 50 mcg 12/30/19 09:00 01/08/20 08:14 Cholecalciferol (Vitamin D3) 25 Mcg Tablet PO 50 mcg DAILY [facility] Administration Labs CBC & Chem 7: 01/07/20 06:47 01/08/20 10:55 Microbiology Microbiology Results: Microbiology 12/29/19 12:06 Blood - Venous Blood Culture - Final No growth after 5 days. 12/29/19 11:56 Blood - Venous Blood Culture - Final No growth after 5 days. 12/29/19 15:50 Urine clean catch - Clean Catch Midstream Urine Culture - Final Klebsiella pneumoniae Assessment and Plan (1) NSTEMI (non-ST elevated myocardial infarction): Status: Acute (2) CKD (chronic kidney disease) stage 3, GFR 30-59 ml/min: Status: Acute (3) COPD exacerbation: Status: Acute (4) Urinary tract infection: Status: Acute (5) Atrial fibrillation with rapid ventricular response: Status: Acute Assessment and Plan: This is a 79-year-old female who presented to the hospital with weakness, fall and generalized swelling 1. anasarca / CKD, stage III/4 diuretics on hold SCr holding at 3 today 24 hour urine collection, completed -- pending results nephrology on board appears to be heading towards dialysis 2. new onset atrial fibrillation short-lived -- 6 hours on Amio-- loading x 2 weeks, then 200mg po daily OAC to be determined -- hold off for now given significant anemia. to be determined as outpatient 3. NSTEMI asa, statin completed 48 hours heparin gtt repeat trop nl. 4. Uncontrolled hypertension imdur 120, hydralazine 100mg tid, norvasc 10mg, lasix 40mg bid, increase coreg to 6.25mg bid increase cardura to 8mg 5. COPD exacerbation / acute Respiratory failure with hypoxia resolved PRN updrafts completed 5 days of steriods 6. Diabetes mellitus continue sliding-scale 7. Klebsiella UTI completed 5 days of iv rocephin 8. Abdominal Pain maybe some gastritis empiric ppi resolved 9. Anemia check occult blood -- pending likely of ckd h/h improved s/p prbc stable 10. ? jerky movements resolved, due to gabapentin ? 11. Weakness may need str pt / wish to go home full code DVT prophylaxis, subcut heparin
[2020-01-08 16:26] LABS: Glucose, Whole Blood 178 mg/dL (60-115)
[2020-01-08 20:37] LABS: Glucose, Whole Blood 142 mg/dL (60-115)
[2020-01-08] MEDS: Atorvastatin Calcium 80 MG TABLET PO (21:42)
[2020-01-08] MEDS: traZODone HCL 25 MG HALFTAB PO (21:46)
[2020-01-09] VITALS (13 sets, daily range): BP systolic 156–180; BP diastolic 60–77; PULSE 58–67; RESP 16–20; TEMP 35.9–37.1; O2SAT 93–98
[2020-01-09] MEDS: Heparin Sodium,Porcine 5,000 UNIT/ML VIAL 5000 UNIT SUBCUT ×3 (01:33→18:28)
[2020-01-09] MEDS: Omeprazole 20 MG CAPSULE.DR PO (05:34)
[2020-01-09 06:40] LABS: MANUAL DIFF FLAG NO
[2020-01-09 07:07] LABS: Basophils Percent Auto 0.3 % (0-2); Eosinophils Absolute Auto 0.2 X10*3/uL (0.0-0.4); Eosinophils Percent Auto 2.4 % (0-4); Hemoglobin 9.2 g/dl (12.0-16.0); Imm Gran Abs Auto 0.24 X10*3/uL (0.00-0.03); Imm Gran Pct Auto 2.7 % (0.0-0.4); Lymphocytes Absolute Auto 1.6 X10*3/uL (1.2-4.9); Lymphocytes Percent Auto 18.2 % (20-40); Mean Corpuscular HGB Conc 31.7 g/dl (31.0-35.0); Mean Corpuscular Hemoglobin 26.2 pg (27.0-33.0); Mean Corpuscular Volume 82.6 fL (80-98); Mean Platelet Volume 11.2 fL (9.4-12.3); Monocytes Absolute Auto 0.9 X10*3/uL (0.1-1.2); Monocytes Percent Auto 9.5 % (2-11); Neutrophils Percent Auto 66.9 % (45-73); Platelet Count 252 X10*3/uL (160-400); Red Blood Count 3.51 X10*6/uL (4.20-5.50); Red Cell Distribution Width 16.8 % (11.0-16.0)
[2020-01-09 07:13] LABS: Glucose, Whole Blood 125 mg/dL (60-115)
[2020-01-09 07:22] LABS: Anion Gap 16 (12-20); Blood Urea Nitrogen 61 mg/dL (9-16); Carbon Dioxide 23 mmol/L (22-29); Chloride 101 mmol/L (96-108); Creatinine Clr Calc Pharmacy 14.9; Estimated Glomerular Filt Rate 15; Glucose Random 125 mg/dL (60-115); Potassium 3.6 mmol/l (3.3-5.1); Sodium 136 mmol/L (135-145)
[2020-01-09] MEDS: Doxazosin Mesylate 2 MG TABLET 8 MG PO (08:24)
[2020-01-09] MEDS: Amiodarone HCL 200 MG TABLET 400 MG PO ×2 (08:25→21:04)
[2020-01-09] MEDS: Isosorbide Mononitrate 60 MG TAB.ER.24H 120 MG PO (08:25)
[2020-01-09] MEDS: Levothyroxine Sodium 50 MCG TABLET PO (08:25)
[2020-01-09] MEDS: Ferrous Sulfate 324 MG TABLET.DR PO ×2 (08:25→21:04)
[2020-01-09] MEDS: Cholecalciferol (Vitamin D3) 25 MCG TABLET 50 MCG PO (08:25)
[2020-01-09] MEDS: amLODIPine Besylate 5 MG TABLET 10 MG PO (08:26)
[2020-01-09] MEDS: Aspirin Enteric Coated 81 MG TABLET.DR PO (08:26)
[2020-01-09] MEDS: hydrALAZINE HCl 25 MG TABLET 100 MG PO ×3 (08:26→21:05)
[2020-01-09] MEDS: 0.9 % Sodium Chloride Flush 3 ML SYRINGE 2 ML IVFLUSH ×2 (08:28→16:34)
[2020-01-09] MEDS: Morphine Sulfate 2 MG/ML CARTRIDGE IVPUSH (08:37)
[2020-01-09] MEDS: Docusate Sodium 100 MG/10 ML LIQUID PO ×2 (11:24→21:04)
[2020-01-09 11:32] LABS: Glucose, Whole Blood 223 mg/dL (60-115)
[2020-01-09] MEDS: Insulin Lispro 100 UNIT/ML 3 ML VIAL SUBCUT ×2 (12:31→21:06)
[2020-01-09] MEDS: polyethylene glycoL 3350 17 GM POWD.PACK PO (15:12)
[2020-01-09] MEDS: ondansetron HCL 4 MG/2 ML VIAL IVPUSH (15:19)
--- NOTE | 2020-01-09 16:12 | PM.PNNEP ---
Subjective Subjective Interval history: seen and examined feeling slowly better Physical Exam Vital Signs: Vital Signs: Vital Signs Temp Pulse Resp BP Pulse Ox 01/09/20 15:49 98.0 F 63 18 156/72 H 98 01/09/20 11:37 97.9 F 62 18 160/76 H 96 01/09/20 08:27 58 01/09/20 08:26 160/72 H 01/09/20 08:25 58 160/72 H 01/09/20 08:24 160/72 H 01/09/20 07:26 97.9 F 58 20 160/72 H 96 01/09/20 03:34 98.7 F 58 20 168/77 H 96 01/08/20 23:16 98.7 F 56 18 144/65 H 96 01/08/20 21:42 70 164/64 H 01/08/20 21:41 70 164/64 H 01/08/20 19:04 98.4 F 62 18 161/62 H 98 01/08/20 16:43 58 161/70 H Body Mass Index 32.1 Comfortable AAO x3 Lungs with fewrhonchi Hrt- NO S3 or rub Abd soft with BS NS no asterexis Const: General: cooperative Assessment & Plan Assessment and plan (1) CKD (chronic kidney disease) stage 4, GFR 15-29 ml/min: Status: Acute Assessment and Plan: Advanced RF approachign ESRD Cr CL of 23 ml./mt NO indication for dialysis yet Keep O > I Can resume diuretics tomorrow Optimize BP Agree with increasing Cardura Discussed with team Time Spent With Patient Time: Total time spent is greater than 50% in coordination of care (as documented) at patient's floor/unit and/or counseling patient:
[2020-01-09 16:26] LABS: Glucose, Whole Blood 128 mg/dL (60-115)
--- NOTE | 2020-01-09 17:11 | HO.PM.IMPN ---
Subjective Subjective Interval History: seen and examined this Am reports constipation denies cp or sob Physical Exam Vital Signs: Vital Signs: Vital Signs Temp Pulse Resp BP Pulse Ox 01/09/20 16:33 62 156/72 H 01/09/20 15:49 98.0 F 63 18 156/72 H 98 01/09/20 11:37 97.9 F 62 18 160/76 H 96 01/09/20 08:27 58 01/09/20 08:26 160/72 H 01/09/20 08:25 58 160/72 H 01/09/20 08:24 160/72 H 01/09/20 07:26 97.9 F 58 20 160/72 H 96 01/09/20 03:34 98.7 F 58 20 168/77 H 96 01/08/20 23:16 98.7 F 56 18 144/65 H 96 01/08/20 21:42 70 164/64 H 01/08/20 21:41 70 164/64 H 01/08/20 19:04 98.4 F 62 18 161/62 H 98 Body Mass Index 32.1 General - appears to be doing better daily Cardiovascular - regular rate and rhythm, S1-S2 Lungs - no distress, but + rales at base Abdomen - non-tender, + BS Extremities - no edema bilaterally Neuro - awake and alert, no clunus Objective Data Current Medications Generic Name Dose Route Start Last Admin Trade Name Daquan PRN Reason Stop Dose Admin Amiodarone HCl 400 mg 01/01/20 21:00 01/09/20 08:25 Amiodarone Hcl 200 Mg Tablet PO 400 mg BID MORIAH Administration Amlodipine Besylate 10 mg 01/04/20 09:00 01/09/20 08:26 Amlodipine Besylate 5 Mg Tablet PO 10 mg DAILY MORIAH Administration Protocol Aspirin 81 mg 01/02/20 10:35 01/09/20 08:26 Aspirin Enteric Coated 81 Mg Tablet.Dr PO 81 mg DAILY MORIAH Administration Atorvastatin Calcium 80 mg 01/02/20 21:00 01/08/20 21:42 Atorvastatin Calcium 80 Mg Tablet PO 80 mg BEDTIME MORIAH Administration Carvedilol 6.25 mg 01/05/20 12:14 01/09/20 08:27 Carvedilol 6.25 Mg Tablet PO Not Given BID MORIAH Protocol Docusate Sodium 100 mg 01/09/20 11:15 01/09/20 11:24 Docusate Sodium 100 Mg/10 Ml Liquid PO 100 mg BID MORIAH Administration Doxazosin Mesylate 8 mg 01/09/20 09:00 01/09/20 08:24 Doxazosin Mesylate 2 Mg Tablet PO 8 mg DAILY MORIAH Administration Protocol Ferrous Sulfate 324 mg 12/29/19 21:00 01/09/20 08:25 Ferrous Sulfate 324 Mg Tablet. PO 324 mg BID MORIAH Administration Heparin Sodium (Porcine) 5,000 unit 01/03/20 18:00 01/09/20 11:24 Heparin Sodium,Porcine 5,000 Unit/Ml Vial SUBCUT 5,000 unit Q8H MORIAH Administration Hydralazine HCl 100 mg 01/02/20 21:00 01/09/20 16:33 Hydralazine Hcl 25 Mg Tablet PO 100 mg TID MORIAH Administration Protocol Insulin Human Lispro 0 unit 12/29/19 21:00 01/09/20 16:37 Insulin Lispro 100 Unit/Ml 3 Ml Vial SUBCUT Not Given QIDACHS [facility] Protocol Isosorbide Mononitrate 120 mg 01/03/20 09:00 01/09/20 08:25 Isosorbide Mononitrate 60 Mg Tab.Er.24h PO 120 mg DAILY MORIAH Administration Protocol Levothyroxine Sodium 50 mcg 12/30/19 09:00 01/09/20 08:25 Levothyroxine Sodium 50 Mcg Tablet PO 50 mcg DAILY MORIAH Administration Omeprazole 20 mg 01/04/20 14:30 01/09/20 05:34 Omeprazole 20 Mg Capsule. PO 20 mg DAILY@0630 MORIAH Administration Ondansetron HCl 4 mg 01/04/20 13:08 01/09/20 15:19 Ondansetron Hcl 4 Mg/2 Ml Vial IVPUSH 4 mg Q8H PRN Administration Nausea and Vomiting Pharmacy Consult 1 each 12/29/19 11:02 Consult Rx Perform Med Rec MISCELLANE ONCE PRN Consult order Polyethylene Glycol 17 gm 01/09/20 14:45 01/09/20 15:12 Polyethylene Glycol 3350 17 Gm Powd.Pack PO 17 gm DAILY MORIAH Administration Sodium Chloride 2 ml 12/30/19 00:00 01/09/20 16:34 0.9 % Sodium Chloride Flush 3 Ml Syringe IVFLUSH 2 ml QSHIFT MORIAH Administration Trazodone HCl 25 mg 01/07/20 19:36 01/08/20 21:46 Trazodone Hcl 25 Mg Halftab PO 25 mg BEDTIME PRN Administration Insomnia Vitamin D 50 mcg 12/30/19 09:00 01/09/20 08:25 Cholecalciferol (Vitamin D3) 25 Mcg Tablet PO 50 mcg DAILY MORIAH Administration Labs CBC & Chem 7: 01/09/20 05:34 01/09/20 05:34 Microbiology Microbiology Results: Microbiology 12/29/19 12:06 Blood - Venous Blood Culture - Final No growth after 5 days. 12/29/19 11:56 Blood - Venous Blood Culture - Final No growth after 5 days. 12/29/19 15:50 Urine clean catch - Clean Catch Midstream Urine Culture - Final Klebsiella pneumoniae Assessment and Plan (1) NSTEMI (non-ST elevated myocardial infarction): Status: Acute (2) CKD (chronic kidney disease) stage 3, GFR 30-59 ml/min: Status: Acute (3) COPD exacerbation: Status: Acute (4) Urinary tract infection: Status: Acute (5) Atrial fibrillation with rapid ventricular response: Status: Acute Assessment and Plan: This is a 79-year-old female who presented to the hospital with weakness, fall and generalized swelling 1. Fluid overload 24 hours urine collection done -- not indication for dialysis yet (see nephrology note); okay to resume diuretics tomorrow. Will wait for renal fucntion and then initiate if okay. 2. new onset atrial fibrillation short-lived -- 6 hours on Amio-- loading x 2 weeks, then 200mg po daily OAC to be determined -- hold off for now given significant anemia. (d/w the patient and patients -- risk and benefits were discussed, but they were unable to decide). to be determined as outpatient 3. NSTEMI asa, statin completed 48 hours heparin gtt repeat trop nl. 4. Uncontrolled hypertension imdur 120, hydralazine 100mg tid, norvasc 10mg, lasix 40mg bid, increase coreg to 6.25mg bid increase cardura to 12mg slowly improving, uptitration of cardura daily as bp allows 5. COPD exacerbation / acute Respiratory failure with hypoxia resolved PRN updrafts completed 5 days of steriods 6. Diabetes mellitus continue sliding-scale 7. Klebsiella UTI completed 5 days of iv rocephin 8. Abdominal Pain maybe some gastritis empiric ppi resolved 9. Anemia check occult blood -- pending likely of ckd h/h improved s/p prbc stable 10. ? jerky movements resolved, due to gabapentin ? 11. Weakness may need str pt / wish to go home full code DVT prophylaxis, subcut heparin
[2020-01-09] MEDS: Doxazosin Mesylate 2 MG TABLET 4 MG PO (18:28)
[2020-01-09 20:58] LABS: Glucose, Whole Blood 220 mg/dL (60-115)
[2020-01-09] MEDS: traZODone HCL 25 MG HALFTAB PO (21:04)
[2020-01-09] MEDS: carvediloL 6.25 MG TABLET PO (21:05)
[2020-01-09] MEDS: Atorvastatin Calcium 80 MG TABLET PO (21:06)
[2020-01-10] VITALS (10 sets, daily range): BP systolic 149–186; BP diastolic 65–97; PULSE 59–66; RESP 16–20; TEMP 36.2–37.2; O2SAT 92–96
[2020-01-10] MEDS: 0.9 % Sodium Chloride Flush 3 ML SYRINGE 2 ML IVFLUSH ×3 (00:35→15:37)
[2020-01-10] MEDS: Heparin Sodium,Porcine 5,000 UNIT/ML VIAL 5000 UNIT SUBCUT ×3 (01:22→18:50)
[2020-01-10] MEDS: Omeprazole 20 MG CAPSULE.DR PO (05:30)
[2020-01-10 06:35] LABS: Anion Gap 16 (12-20); Blood Urea Nitrogen 59 mg/dL (9-16); Calcium 7.7 mg/dL (8.4-10.2); Carbon Dioxide 21 mmol/L (22-29); Chloride 102 mmol/L (96-108); Creatinine Clr Calc Pharmacy 13.1; Estimated Glomerular Filt Rate 13; Glucose Random 116 mg/dL (60-115); Potassium 4.1 mmol/l (3.3-5.1); Sodium 135 mmol/L (135-145)
[2020-01-10 07:30] LABS: Glucose, Whole Blood 127 mg/dL (60-115)
[2020-01-10] MEDS: Isosorbide Mononitrate 60 MG TAB.ER.24H 120 MG PO (09:09)
[2020-01-10] MEDS: hydrALAZINE HCl 25 MG TABLET 100 MG PO ×3 (09:10→22:16)
[2020-01-10] MEDS: Ferrous Sulfate 324 MG TABLET.DR PO ×2 (09:10→22:17)
[2020-01-10] MEDS: carvediloL 6.25 MG TABLET PO ×2 (09:10→22:17)
[2020-01-10] MEDS: Cholecalciferol (Vitamin D3) 25 MCG TABLET 50 MCG PO (09:10)
[2020-01-10] MEDS: amLODIPine Besylate 5 MG TABLET 10 MG PO (09:10)
[2020-01-10] MEDS: Aspirin Enteric Coated 81 MG TABLET.DR PO (09:10)
[2020-01-10] MEDS: Amiodarone HCL 200 MG TABLET 400 MG PO ×2 (09:10→22:19)
[2020-01-10] MEDS: polyethylene glycoL 3350 17 GM POWD.PACK PO (09:11)
[2020-01-10] MEDS: Levothyroxine Sodium 50 MCG TABLET PO (09:11)
[2020-01-10] MEDS: Docusate Sodium 100 MG/10 ML LIQUID PO ×2 (09:16→22:16)
[2020-01-10] MEDS: Doxazosin Mesylate 2 MG TABLET 12 MG PO (10:21)
--- NOTE | 2020-01-10 10:34 | PM.PNNEP ---
Subjective Subjective Interval history: Event noted Feeling OK BP still elevated Physical Exam Vital Signs: Vital Signs: Vital Signs Temp Pulse Resp BP Pulse Ox 01/10/20 10:21 61 184/77 H 01/10/20 09:09 66 162/70 H 01/10/20 07:19 97.1 F 65 18 162/70 H 95 01/10/20 03:35 97.8 F 62 16 156/65 H 96 01/09/20 23:30 98.2 F 63 16 180/76 H 93 01/09/20 21:05 66 164/60 H 01/09/20 21:04 66 164/60 H 01/09/20 19:15 96.7 F L 67 16 170/63 H 97 01/09/20 16:33 62 156/72 H 01/09/20 15:49 98.0 F 63 18 156/72 H 98 01/09/20 11:37 97.9 F 62 18 160/76 H 96 Body Mass Index 32.1 Const: General: cooperative Orientation/consciousness: oriented to person HENMT: Head: Yes normal to inspection Eyes: General: appearance normal, both eyes and all related structures Chest: Chest palpation & inspection: normal inspection of the chest Resp: Effort & Inspection: no cough and decreased respiratory effort Auscultation: rhonchi Cardio: Palpation: normal PMI Heart sounds: no gallops GI: Inspection: Yes normal to inspection Palpation (GI): Soft to palpation Auscultation: normal bowel sounds Skin: General skin exam: dry skin Rashes: no rashes Neuro: General: oriented to person Motor exam (neuro): no asterixis and No Asterixis during motor activity present Assessment & Plan Assessment and plan (1) CKD (chronic kidney disease) stage 4, GFR 15-29 ml/min: Status: Acute Assessment and Plan: Advanced RF approachign ESRD Cr CL of 23 ml./mt NO indication for dialysis yet Discussed dialysis She is agreeable. If Cr continues to increase, will arrange for permcath Keep O > I Optimize BP Agree with increasing Cardura Discussed with team Time Spent With Patient Time: :
[2020-01-10 11:47] LABS: Glucose, Whole Blood 180 mg/dL (60-115)
[2020-01-10] MEDS: Insulin Lispro 100 UNIT/ML 3 ML VIAL SUBCUT ×2 (12:11→17:53)
--- NOTE | 2020-01-10 15:57 | PM.IMPN ---
Subjective Subjective Date of Service: 01/10/20 Interval History: Cr worse No complaints Refuses STR, plans to go home with VNA Cardiovascular Cardiovascular: Denies chest pain and Denies leg edema Respiratory Respiratory: Denies cough and Denies dyspnea Gastrointestinal Gastrointestinal: Denies abdominal pain Physical Exam Vital Signs: Vital Signs: Vital Signs Temp Pulse Resp BP Pulse Ox 01/10/20 15:35 62 161/92 H 01/10/20 15:19 98.2 F 62 18 161/97 H 94 01/10/20 11:41 97.3 F 62 18 164/81 H 96 01/10/20 10:21 61 184/77 H 01/10/20 09:09 66 162/70 H 01/10/20 07:19 97.1 F 65 18 162/70 H 95 01/10/20 03:35 97.8 F 62 16 156/65 H 96 01/09/20 23:30 98.2 F 63 16 180/76 H 93 01/09/20 21:05 66 164/60 H 01/09/20 21:04 66 164/60 H 01/09/20 19:15 96.7 F L 67 16 170/63 H 97 01/09/20 16:33 62 156/72 H Body Mass Index 32.1 Const: General: no acute distress Resp: Effort & Inspection: normal respiratory effort and symmetric chest movement Auscultation: clear to auscultation bilaterally Neuro: General: no focal motor deficits Objective Data Current Medications Generic Name Dose Route Start Last Admin Trade Name Jose Manuelq PRN Reason Stop Dose Admin Amiodarone HCl 400 mg 01/01/20 21:00 01/10/20 09:10 Amiodarone Hcl 200 Mg Tablet PO 400 mg BID MORIAH Administration Amlodipine Besylate 10 mg 01/04/20 09:00 01/10/20 09:10 Amlodipine Besylate 5 Mg Tablet PO 10 mg DAILY MORIAH Administration Protocol Aspirin 81 mg 01/02/20 10:35 01/10/20 09:10 Aspirin Enteric Coated 81 Mg Tablet.Dr PO 81 mg DAILY MORIAH Administration Atorvastatin Calcium 80 mg 01/02/20 21:00 01/09/20 21:06 Atorvastatin Calcium 80 Mg Tablet PO 80 mg BEDTIME MORIAH Administration Carvedilol 6.25 mg 01/05/20 12:14 01/10/20 09:10 Carvedilol 6.25 Mg Tablet PO 6.25 mg BID MORIAH Administration Protocol Docusate Sodium 100 mg 01/09/20 11:15 01/10/20 09:16 Docusate Sodium 100 Mg/10 Ml Liquid PO 100 mg BID MORIAH Administration Doxazosin Mesylate 12 mg 01/10/20 09:00 01/10/20 10:21 Doxazosin Mesylate 2 Mg Tablet PO 12 mg DAILY MORIAH Administration Protocol Ferrous Sulfate 324 mg 12/29/19 21:00 01/10/20 09:10 Ferrous Sulfate 324 Mg Tablet. PO 324 mg BID MORIAH Administration Heparin Sodium (Porcine) 5,000 unit 01/03/20 18:00 01/10/20 09:11 Heparin Sodium,Porcine 5,000 Unit/Ml Vial SUBCUT 5,000 unit Q8H MORIAH Administration Hydralazine HCl 100 mg 01/02/20 21:00 01/10/20 15:35 Hydralazine Hcl 25 Mg Tablet PO 100 mg TID MORIAH Administration Protocol Insulin Human Lispro 0 unit 12/29/19 21:00 01/10/20 12:11 Insulin Lispro 100 Unit/Ml 3 Ml Vial SUBCUT 2 unit QIDACHS [facility] Administration Protocol Isosorbide Mononitrate 120 mg 01/03/20 09:00 01/10/20 09:09 Isosorbide Mononitrate 60 Mg Tab.Er.24h PO 120 mg DAILY MORIAH Administration Protocol Levothyroxine Sodium 50 mcg 12/30/19 09:00 01/10/20 09:11 Levothyroxine Sodium 50 Mcg Tablet PO 50 mcg DAILY MORIAH Administration Omeprazole 20 mg 01/04/20 14:30 01/10/20 05:30 Omeprazole 20 Mg Capsule. PO 20 mg DAILY@0630 MORIAH Administration Ondansetron HCl 4 mg 01/04/20 13:08 01/09/20 15:19 Ondansetron Hcl 4 Mg/2 Ml Vial IVPUSH 4 mg Q8H PRN Administration Nausea and Vomiting Pharmacy Consult 1 each 12/29/19 11:02 Consult Rx Perform Med Rec MISCELLANE ONCE PRN Consult order Polyethylene Glycol 17 gm 01/09/20 14:45 01/10/20 09:11 Polyethylene Glycol 3350 17 Gm Powd.Pack PO 17 gm DAILY MORIAH Administration Sodium Chloride 2 ml 12/30/19 00:00 01/10/20 15:37 0.9 % Sodium Chloride Flush 3 Ml Syringe IVFLUSH 2 ml QSHIFT MORIAH Administration Trazodone HCl 25 mg 01/07/20 19:36 01/09/20 21:04 Trazodone Hcl 25 Mg Halftab PO 25 mg BEDTIME PRN Administration Insomnia Vitamin D 50 mcg 12/30/19 09:00 01/10/20 09:10 Cholecalciferol (Vitamin D3) 25 Mcg Tablet PO 50 mcg DAILY MORIAH Administration Labs CBC & Chem 7: 01/09/20 05:34 01/10/20 04:41 Labs: Laboratory Results - last 24 hr 01/09/20 01/09/20 01/10/20 16:23 20:55 04:41 Anion Gap 16 Estim Creat Clear Calc 13.1 Estimated GFR 13 POC Glucose 128 H 220 H Random Glucose 116 H Calcium 7.7 L 01/10/20 01/10/20 07:18 11:38 Anion Gap Estim Creat Clear Calc Estimated GFR POC Glucose 127 H 180 H Random Glucose Calcium Microbiology Microbiology Results: Microbiology 12/29/19 12:06 Blood - Venous Blood Culture - Final No growth after 5 days. 12/29/19 11:56 Blood - Venous Blood Culture - Final No growth after 5 days. 12/29/19 15:50 Urine clean catch - Clean Catch Midstream Urine Culture - Final Klebsiella pneumoniae Progress Note: A&P (1) NSTEMI (non-ST elevated myocardial infarction): Status: Acute (2) CKD (chronic kidney disease) stage 3, GFR 30-59 ml/min: Status: Acute (3) COPD exacerbation: Status: Acute (4) Urinary tract infection: Status: Acute (5) Atrial fibrillation with rapid ventricular response: Status: Acute Assessment and Plan: hospital d#13 79yo F with CKD3/4 admitted for fall/weakness found to have new-onset AF, MARILEE/CKD, NSTEMI 1. MARILEE/CKD4 - SCr worsened, continue to hold furosemide - Nephrology following, may eventually need HD 2. uncontrolled HTN - on max doses of Imdur, hydralazine, amlodipine, and doxazosin; no HR room to increase carvedilol - holding furosemide due to worsening Cr 3. new-onset AF - short-lived [6 hr] - loading with amiodarone until 01/14/20, then 200mg daily maintenance dose - deferring anticoagulation decision for now given anemia and pt's ambivalence - needs cardiology f/u 4. NSTEMI - medically managed with heparin x 48h, ASA, statin 5. 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 gastritis - continue PPI 7. muscle twitching - thought to be impaired clearance of gabapentin- discontinued 8. COPD exacerbation 9. acute hypoxic respiratory failure - resolved s/p 5-day steroid burst, continue prn bronchodilators 10. Klebsiella UTI - s/p 5d of ceftriaxone 11. DM2 - correction-dose lispro 12. hypothyroidism - continue LT4 13. VTE ppx - UFH
[2020-01-10 16:15] LABS: Glucose, Whole Blood 156 mg/dL (60-115)
[2020-01-10 18:12] LABS: Urea, 24 Hr Urine 7 g/24 h (6-17)
[2020-01-10 21:25] LABS: Glucose, Whole Blood 130 mg/dL (60-115)
[2020-01-10] MEDS: Atorvastatin Calcium 80 MG TABLET PO (22:17)
[2020-01-11] VITALS (12 sets, daily range): BP systolic 138–168; BP diastolic 64–73; PULSE 52–92; RESP 16–20; TEMP 36.2–37; O2SAT 94–98
[2020-01-11] MEDS: 0.9 % Sodium Chloride Flush 3 ML SYRINGE 2 ML IVFLUSH ×4 (01:10→21:40)
[2020-01-11] MEDS: Heparin Sodium,Porcine 5,000 UNIT/ML VIAL 5000 UNIT SUBCUT ×3 (01:10→17:23)
[2020-01-11] MEDS: ondansetron HCL 4 MG/2 ML VIAL IVPUSH ×2 (05:33→17:40)
[2020-01-11] MEDS: Omeprazole 20 MG CAPSULE.DR PO ×2 (05:33→17:24)
[2020-01-11 06:23] LABS: MANUAL DIFF FLAG NO
[2020-01-11 06:52] LABS: Basophils Percent Auto 0.2 % (0-2); Eosinophils Absolute Auto 0.2 X10*3/uL (0.0-0.4); Eosinophils Percent Auto 1.8 % (0-4); Hematocrit 28.9 % (37-47); Hemoglobin 9.2 g/dl (12.0-16.0); Imm Gran Abs Auto 0.17 X10*3/uL (0.00-0.03); Imm Gran Pct Auto 1.7 % (0.0-0.4); Lymphocytes Absolute Auto 1.5 X10*3/uL (1.2-4.9); Lymphocytes Percent Auto 14.9 % (20-40); Mean Corpuscular HGB Conc 31.8 g/dl (31.0-35.0); Mean Corpuscular Hemoglobin 26.1 pg (27.0-33.0); Mean Corpuscular Volume 82.1 fL (80-98); Mean Platelet Volume 10.6 fL (9.4-12.3); Monocytes Absolute Auto 0.9 X10*3/uL (0.1-1.2); Monocytes Percent Auto 9.3 % (2-11); Neutrophils Absolute Auto 7.1 X10*3/uL (2.0-8.3); Neutrophils Percent Auto 72.1 % (45-73); Platelet Count 269 X10*3/uL (160-400); Red Blood Count 3.52 X10*6/uL (4.20-5.50); Red Cell Distribution Width 16.4 % (11.0-16.0); White Blood Count 9.9 X10*3/uL (4.8-10.8)
[2020-01-11 07:00] LABS: Estimated Average Glucose 131 mg/dL; Hemoglobin A1c % 6.2 %
[2020-01-11 07:04] LABS: Anion Gap 13 (12-20); Blood Urea Nitrogen 53 mg/dL (9-16); Carbon Dioxide 26 mmol/L (22-29); Chloride 101 mmol/L (96-108); Creatinine Clr Calc Pharmacy 14.2; Estimated Glomerular Filt Rate 14; Glucose Random 135 mg/dL (60-115); Potassium 4.2 mmol/l (3.3-5.1); Sodium 136 mmol/L (135-145)
[2020-01-11 07:25] LABS: Glucose, Whole Blood 131 mg/dL (60-115)
[2020-01-11] MEDS: Doxazosin Mesylate 2 MG TABLET 12 MG PO (07:53)
[2020-01-11] MEDS: polyethylene glycoL 3350 17 GM POWD.PACK PO (07:53)
[2020-01-11] MEDS: Docusate Sodium 100 MG/10 ML LIQUID PO (07:53)
[2020-01-11] MEDS: amLODIPine Besylate 5 MG TABLET 10 MG PO (07:55)
[2020-01-11] MEDS: Amiodarone HCL 200 MG TABLET 400 MG PO ×2 (07:55→21:36)
[2020-01-11] MEDS: Ferrous Sulfate 324 MG TABLET.DR PO ×2 (07:56→21:37)
[2020-01-11] MEDS: Aspirin Enteric Coated 81 MG TABLET.DR PO (07:56)
[2020-01-11] MEDS: Levothyroxine Sodium 50 MCG TABLET PO (07:56)
[2020-01-11] MEDS: Cholecalciferol (Vitamin D3) 25 MCG TABLET 50 MCG PO (07:56)
[2020-01-11] MEDS: hydrALAZINE HCl 25 MG TABLET 100 MG PO ×3 (07:57→21:37)
[2020-01-11] MEDS: carvediloL 6.25 MG TABLET PO ×2 (07:57→21:36)
[2020-01-11] MEDS: Isosorbide Mononitrate 60 MG TAB.ER.24H 120 MG PO (07:57)
--- NOTE | 2020-01-11 10:17 | PM.PNNEP ---
Subjective Subjective Interval history: c/o Nausea BP better controlled Physical Exam Vital Signs: Vital Signs: Vital Signs Temp Pulse Resp BP Pulse Ox 01/11/20 07:57 92 144/66 H 01/11/20 07:55 92 144/66 H 01/11/20 07:53 92 144/68 H 01/11/20 07:23 97.1 F 92 18 144/66 H 96 01/11/20 03:42 98.6 F 52 18 168/71 H 94 01/10/20 23:38 98.9 F 59 20 149/65 H 92 01/10/20 22:19 63 186/70 H 01/10/20 19:06 97.3 F 64 18 157/85 H 94 01/10/20 15:35 62 161/92 H 01/10/20 15:19 98.2 F 62 18 161/97 H 94 01/10/20 11:41 97.3 F 62 18 164/81 H 96 01/10/20 10:21 61 184/77 H Body Mass Index 32.1 Const: General: cooperative Orientation/consciousness: oriented to person HENMT: Head: Yes normal to inspection Eyes: General: appearance normal, both eyes and all related structures Chest: Chest palpation & inspection: normal inspection of the chest Resp: Effort & Inspection: no cough and decreased respiratory effort Auscultation: rhonchi Cardio: Palpation: normal PMI Heart sounds: no gallops GI: Inspection: Yes normal to inspection Palpation (GI): Soft to palpation Auscultation: normal bowel sounds Skin: General skin exam: dry skin Rashes: no rashes Neuro: General: oriented to person Motor exam (neuro): no asterixis and No Asterixis during motor activity present Assessment & Plan Assessment and plan (1) CKD (chronic kidney disease) stage 4, GFR 15-29 ml/min: Status: Chronic Assessment and Plan: 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
[2020-01-11] MEDS: Lactulose 20 GM/30 ML SOLUTION PO (11:28)
[2020-01-11 11:36] LABS: Glucose, Whole Blood 157 mg/dL (60-115)
[2020-01-11] MEDS: Insulin Lispro 100 UNIT/ML 3 ML VIAL SUBCUT ×2 (11:49→21:38)
--- NOTE | 2020-01-11 12:54 | MHC.CM.PN ---
per rounds pt expected to be dcd today with hvns
--- NOTE | 2020-01-11 14:45 | P.F2F_ITS ---
Service Date Service Date: 01/11/20 Reasons for Services overseeing care: Yuki De Dios MD Homebound: Leaving the home is medically contraindicated at this time without the asist of a device and/or another person due th the listed conditions above and below. Certification: Based on the above findings, I certify that this patient is confined to the home and needs intermittent shelter care, physical therapy and/or speech therapy, or continues to need occupational therapy. The patient is under my care, and I have initiated the establishment of the plan of care. The patient will be followed by a physician who will periodically review the plan of care.
--- NOTE | 2020-01-11 16:05 | PM.IMPN ---
Subjective Subjective Date of Service: 01/11/20 Interval History: Cr improved C/o worsening epigastric pain and heartburn Cardiovascular Cardiovascular: Denies chest pain and Denies leg edema Respiratory Respiratory: Denies cough and Denies dyspnea Gastrointestinal Gastrointestinal: Reports abdominal pain and Reports heartburn Physical Exam Vital Signs: Vital Signs: Vital Signs Temp Pulse Resp BP Pulse Ox 01/11/20 15:32 97.6 F 62 20 147/64 H 96 01/11/20 14:42 64 138/68 01/11/20 11:27 97.9 F 58 18 142/68 H 98 01/11/20 07:57 92 144/66 H 01/11/20 07:55 92 144/66 H 01/11/20 07:53 92 144/68 H 01/11/20 07:23 97.1 F 92 18 144/66 H 96 01/11/20 03:42 98.6 F 52 18 168/71 H 94 01/10/20 23:38 98.9 F 59 20 149/65 H 92 01/10/20 22:19 63 186/70 H 01/10/20 19:06 97.3 F 64 18 157/85 H 94 Body Mass Index 32.1 Const: General: other (c/o pain) Eyes: Sclerae: sclerae normal Neck: Neck: Yes supple Resp: Effort & Inspection: normal respiratory effort Auscultation: clear to auscultation bilaterally Cardio: Rate: regular rate Rhythm: regular rhythm GI: Inspection: Yes normal to inspection Palpation (GI): Tenderness to palpation present (GI) in the epigastrum; with no rebound tenderness Extrem: General: Yes no clubbing, cyanosis or edema Objective Data Current Medications Generic Name Dose Route Start Last Admin Trade Name Jose Manuelq PRN Reason Stop Dose Admin Amiodarone HCl 400 mg 01/01/20 21:00 01/11/20 07:55 Amiodarone Hcl 200 Mg Tablet PO 400 mg BID MORIAH Administration Amlodipine Besylate 10 mg 01/04/20 09:00 01/11/20 07:55 Amlodipine Besylate 5 Mg Tablet PO 10 mg DAILY MORIAH Administration Protocol Aspirin 81 mg 01/02/20 10:35 01/11/20 07:56 Aspirin Enteric Coated 81 Mg Tablet.Dr PO 81 mg DAILY MORIAH Administration Atorvastatin Calcium 80 mg 01/02/20 21:00 01/10/20 22:17 Atorvastatin Calcium 80 Mg Tablet PO 80 mg BEDTIME MORIAH Administration Carvedilol 6.25 mg 01/05/20 12:14 01/11/20 07:57 Carvedilol 6.25 Mg Tablet PO 6.25 mg BID [facility] Administration Protocol Docusate Sodium 100 mg 01/09/20 11:15 01/11/20 07:53 Docusate Sodium 100 Mg/10 Ml Liquid PO 100 mg BID MORIAH Administration Doxazosin Mesylate 12 mg 01/10/20 09:00 01/11/20 07:53 Doxazosin Mesylate 2 Mg Tablet PO 12 mg DAILY [facility] Administration Protocol Ferrous Sulfate 324 mg 12/29/19 21:00 01/11/20 07:56 Ferrous Sulfate 324 Mg Tablet. PO 324 mg BID MORIAH Administration Heparin Sodium (Porcine) 5,000 unit 01/03/20 18:00 01/11/20 09:59 Heparin Sodium,Porcine 5,000 Unit/Ml Vial SUBCUT 5,000 unit Q8H MORIAH Administration Hydralazine HCl 100 mg 01/02/20 21:00 01/11/20 14:42 Hydralazine Hcl 25 Mg Tablet PO 100 mg TID [facility] Administration Protocol Insulin Human Lispro 0 unit 12/29/19 21:00 01/11/20 11:49 Insulin Lispro 100 Unit/Ml 3 Ml Vial SUBCUT 2 unit QIDACHS [facility] Administration Protocol Isosorbide Mononitrate 120 mg 01/03/20 09:00 01/11/20 07:57 Isosorbide Mononitrate 60 Mg Tab.Er.24h PO 120 mg DAILY [facility] Administration Protocol Levothyroxine Sodium 50 mcg 12/30/19 09:00 01/11/20 07:56 Levothyroxine Sodium 50 Mcg Tablet PO 50 mcg DAILY [facility] Administration Omeprazole 20 mg 01/04/20 14:30 01/11/20 05:33 Omeprazole 20 Mg Capsule. PO 20 mg DAILY@0630 [facility] Administration Ondansetron HCl 4 mg 01/04/20 13:08 01/11/20 05:33 Ondansetron Hcl 4 Mg/2 Ml Vial IVPUSH 4 mg Q8H PRN Administration Nausea and Vomiting Pharmacy Consult 1 each 12/29/19 11:02 Consult Rx Perform Med Rec MISCELLANE ONCE PRN Consult order Polyethylene Glycol 17 gm 01/09/20 14:45 01/11/20 07:53 Polyethylene Glycol 3350 17 Gm Powd.Pack PO 17 gm DAILY MORIAH Administration Sodium Chloride 2 ml 12/30/19 00:00 01/11/20 14:43 0.9 % Sodium Chloride Flush 3 Ml Syringe IVFLUSH 2 ml QSHIFT MORIAH Administration Trazodone HCl 25 mg 01/07/20 19:36 01/09/20 21:04 Trazodone Hcl 25 Mg Halftab PO 25 mg BEDTIME PRN Administration Insomnia Vitamin D 50 mcg 12/30/19 09:00 01/11/20 07:56 Cholecalciferol (Vitamin D3) 25 Mcg Tablet PO 50 mcg DAILY MORIAH Administration Labs CBC & Chem 7: 01/11/20 05:42 01/11/20 05:42 Labs: Laboratory Results - last 24 hr 01/07/20 01/10/20 01/10/20 12:05 16:07 21:10 MCV MCH MCHC RDW Plt Count MPV Immature Gran % (Auto) Neut % (Auto) Lymph % (Auto) [place] % (Auto) Eos % (Auto) Baso % (Auto) Lymph # (Auto) [place] # (Auto) Eos # (Auto) Baso # (Auto) Abs Immat Gran (auto) Absolute Neuts (auto) Absolute Nucleated RBC Nucleated RBC % (auto) Anion Gap Estim Creat Clear Calc Estimated GFR POC Glucose 156 H 130 H Random Glucose Estimat Average Glucose Hemoglobin A1c % Calcium Urine Urea 24 Hr 7 01/11/20 01/11/20 01/11/20 05:42 05:42 05:42 MCV 82.1 MCH 26.1 L MCHC 31.8 RDW 16.4 H Plt Count 269 MPV 10.6 Immature Gran % (Auto) 1.7 H Neut % (Auto) 72.1 Lymph % (Auto) 14.9 L [place] % (Auto) 9.3 Eos % (Auto) 1.8 Baso % (Auto) 0.2 Lymph # (Auto) 1.5 [place] # (Auto) 0.9 Eos # (Auto) 0.2 Baso # (Auto) 0.0 Abs Immat Gran (auto) 0.17 H Absolute Neuts (auto) 7.1 Absolute Nucleated RBC 0.000 Nucleated RBC % (auto) 0.0 Anion Gap 13 Estim Creat Clear Calc 14.2 Estimated GFR 14 POC Glucose Random Glucose 135 H Estimat Average Glucose 131 Hemoglobin A1c % 6.2 Calcium 8.0 L Urine Urea 24 Hr 01/11/20 01/11/20 07:20 11:26 MCV MCH MCHC RDW Plt Count MPV Immature Gran % (Auto) Neut % (Auto) Lymph % (Auto) [place] % (Auto) Eos % (Auto) Baso % (Auto) Lymph # (Auto) [place] # (Auto) Eos # (Auto) Baso # (Auto) Abs Immat Gran (auto) Absolute Neuts (auto) Absolute Nucleated RBC Nucleated RBC % (auto) Anion Gap Estim Creat Clear Calc Estimated GFR POC Glucose 131 H 157 H Random Glucose Estimat Average Glucose Hemoglobin A1c % Calcium Urine Urea 24 Hr Microbiology Microbiology Results: Microbiology 12/29/19 12:06 Blood - Venous Blood Culture - Final No growth after 5 days. 12/29/19 11:56 Blood - Venous Blood Culture - Final No growth after 5 days. 12/29/19 15:50 Urine clean catch - Clean Catch Midstream Urine Culture - Final Klebsiella pneumoniae Progress Note: A&P (1) NSTEMI (non-ST elevated myocardial infarction): Status: Acute (2) CKD (chronic kidney disease) stage 3, GFR 30-59 ml/min: Status: Acute (3) COPD exacerbation: Status: Acute (4) Urinary tract infection: Status: Acute (5) Atrial fibrillation with rapid ventricular response: Status: Acute Assessment and Plan: hospital d#14 79yo F with CKD3/4 admitted for fall/weakness found to have new-onset AF, MARILEE/CKD, NSTEMI 1. gastritis - will increase PPI to bid and add sucralfate; if not improved, t/c CT A/P and consult GI 2. MARILEE/CKD4 - SCr somewhat improved - continue to hold furosemide - Nephrology following - Vascular Surgery consult for AV fistula given likelihood of needing HD in near-future 3. uncontrolled HTN - BP better controlled on max doses of Imdur, hydralazine, amlodipine, and doxazosin; also on carvedilol and HR in the 60sl - holding furosemide due to worsening Cr 4. new-onset AF - short-lived [6 hr] - loading with amiodarone until 01/14/20, then 200mg daily maintenance dose - deferring anticoagulation decision for now given anemia and pt's ambivalence - will need cardiology f/u 5. NSTEMI - medically managed with heparin x 48h, ASA, statin 6. 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 muscle twitching - thought to be impaired clearance of gabapentin- discontinued 8. COPD exacerbation 9. acute hypoxic respiratory failure - resolved s/p 5-day steroid burst, continue prn bronchodilators 10. Klebsiella UTI - s/p 5d of ceftriaxone 11. DM2 - correction-dose lispro 12. hypothyroidism - continue LT4 13. VTE ppx - UFH
[2020-01-11 18:01] LABS: Glucose, Whole Blood 181 mg/dL (60-115)
[2020-01-11 21:31] LABS: Glucose, Whole Blood 172 mg/dL (60-115)
[2020-01-11] MEDS: Atorvastatin Calcium 80 MG TABLET PO (21:36)
[2020-01-12] VITALS (9 sets, daily range): BP systolic 157–166; BP diastolic 68–90; PULSE 56–63; RESP 18–20; TEMP 36.2–37.1; O2SAT 94–98
[2020-01-12] MEDS: traZODone HCL 25 MG HALFTAB PO (00:08)
[2020-01-12] MEDS: Heparin Sodium,Porcine 5,000 UNIT/ML VIAL 5000 UNIT SUBCUT ×2 (01:10→08:35)
[2020-01-12 07:19] LABS: Glucose, Whole Blood 127 mg/dL (60-115)
[2020-01-12] MEDS: Docusate Sodium 100 MG/10 ML LIQUID PO (08:35)
[2020-01-12] MEDS: polyethylene glycoL 3350 17 GM POWD.PACK PO (08:35)
[2020-01-12] MEDS: hydrALAZINE HCl 25 MG TABLET 100 MG PO ×2 (08:36→16:24)
[2020-01-12] MEDS: Amiodarone HCL 200 MG TABLET 400 MG PO (08:36)
[2020-01-12] MEDS: Aspirin Enteric Coated 81 MG TABLET.DR PO (08:37)
[2020-01-12] MEDS: Ferrous Sulfate 324 MG TABLET.DR PO (08:37)
[2020-01-12] MEDS: Omeprazole 20 MG CAPSULE.DR PO ×2 (08:37→16:24)
[2020-01-12] MEDS: Levothyroxine Sodium 50 MCG TABLET PO (08:37)
[2020-01-12] MEDS: carvediloL 6.25 MG TABLET PO (08:37)
[2020-01-12] MEDS: Doxazosin Mesylate 2 MG TABLET 12 MG PO (08:37)
[2020-01-12] MEDS: 0.9 % Sodium Chloride Flush 3 ML SYRINGE 2 ML IVFLUSH ×2 (08:38→16:25)
[2020-01-12] MEDS: Isosorbide Mononitrate 60 MG TAB.ER.24H 120 MG PO (08:38)
[2020-01-12] MEDS: Cholecalciferol (Vitamin D3) 25 MCG TABLET 50 MCG PO (08:39)
[2020-01-12] MEDS: amLODIPine Besylate 5 MG TABLET 10 MG PO (08:39)
[2020-01-12 10:22] LABS: Anion Gap 12 (12-20); Blood Urea Nitrogen 47 mg/dL (9-16); Calcium 8.1 mg/dL (8.4-10.2); Carbon Dioxide 25 mmol/L (22-29); Chloride 101 mmol/L (96-108); Estimated Glomerular Filt Rate 15; Glucose Random 193 mg/dL (60-115); Potassium 4.1 mmol/l (3.3-5.1); Sodium 134 mmol/L (135-145)
--- NOTE | 2020-01-12 10:35 | P.PNNP_ITS ---
Subjective Subjective Interval history: Events noted Feeling better Wants to go home! Physical Exam Vital Signs: Vital Signs: Vital Signs Temp Pulse Resp BP Pulse Ox 01/12/20 08:39 60 157/90 H 01/12/20 08:38 60 157/90 H 01/12/20 08:37 60 157/90 H 01/12/20 08:36 60 157/90 H 01/12/20 07:06 97.7 F 60 18 157/90 H 95 01/12/20 03:56 98.7 F 61 20 160/68 H 94 01/11/20 23:44 98.3 F 88 18 158/69 H 94 01/11/20 21:37 65 148/73 H 01/11/20 21:36 65 148/73 H 01/11/20 20:00 97.2 F 59 16 148/73 H 96 01/11/20 15:32 97.6 F 62 20 147/64 H 96 01/11/20 14:42 64 138/68 01/11/20 11:27 97.9 F 58 18 142/68 H 98 Body Mass Index 32.1 Const: General: cooperative Orientation/consciousness: oriented to person HENMT: Head: Yes normal to inspection Eyes: General: appearance normal, both eyes and all related structures Chest: Chest palpation & inspection: normal inspection of the chest Resp: Effort & Inspection: no cough and decreased respiratory effort Auscu ltation: rhonchi Cardio: Palpation: normal PMI Heart sounds: no gallops GI: Inspection: Yes normal to inspection Palpation (GI): Soft to palpation Auscultation: normal bowel sounds Skin: General skin exam: dry skin Rashes: no rashes Neuro: General: oriented to person Motor exam (neuro): no asterixis and No Asterixis during motor activity present Assessment & Plan Assessment and plan (1) CKD (chronic kidney disease) stage 4, GFR 15-29 ml/min: Status: Chronic Assessment and Plan: 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
[2020-01-12 11:15] LABS: Glucose, Whole Blood 194 mg/dL (60-115)
--- NOTE | 2020-01-12 11:51 | P.DS_ITS ---
DS: Providers Provider Date of admission: 12/29/19 17:04 Primary care physician: Yuki De Dios MD Consults: 12/30/19 08:19 Consult to Nephrology Routine Consulting Provider: Dash Batista Reason for consultation: generalized edema r/o nephrotic syndrome 01/01/20 09:34 Consult to Cardiology Routine Consulting Provider: Frantz Cardenas Reason for consultation: chest pain DS: Diagnosis Discharge Diagnosis (1) Acute on chronic kidney failure: Status: Acute (2) Essential hypertension: Status: Acute (3) Atrial fibrillation with rapid ventricular response: Status: Acute (4) Urinary tract infection: Status: Acute (5) PAF (paroxysmal atrial fibrillation): Status: Acute (6) NSTEMI (non-ST elevated myocardial infarction): Status: Acute (7) Anemia: Status: Acute (8) COPD exacerbation: Status: Acute (9) Gastritis: Status: Acute DS: Summary Hospital Course Hospital Course: From admission history and physical by hospitalist Zachery Villarreal, 12/29/19: 79-year-old female presented with weakness fall and generalized swelling, patient was recently admitted to [facility] treated for sepsis secondary to UTI and NSTEMI patient reported she was feeling weak yesterday she went to bed around 12:00 o'clock and fell down from bed around 15:00, EMS was called patient found to be hypoxic, patient was placed on 2 L of nasal cannula and oxygen improved in 90s , patient reported some urinary frequency, denies any fever chills nausea vomiting, patient noticed to have generalized swelling for last few days and was getting worse, patient was taking Lasix before but stopped , patient denies any sick contacts, patient has CKD and significant proteinuria patient is being followed by prestidigitator but does not remember the name BNP was normal , but given generalized edema patient was given IV Lasix echocardiogram from June 2018 shows EF 60-65% The patient was admitted to the [facility] and had a prolonged hospitalization of 15 days. By problem: 1. MARILEE/CKD4 The patient was initially diuresed but this was held as creatinine worsened. Nephrology was consulted. Ultimately, creatinine peaked and improved slightly to <3. Nephropathy was attributed to uncontrolled hypertension and diabetes. The likelihood of future dialysis dependence was discussed with her and she will follow up with Nephrology as an outpatient. 2. New-onset atrial fibrillation This was short-lived. She was loaded with amiodarone by mouth. Anticoagulation was discussed but after much deliberation, a decision was deferred pending improvement in her anemia. She will discuss this as an outpatient with her PCP and with Cardiology. 3. NSTEMI This was medically managed with heparinization, aspirin, and atorvastatin. 4. Essential hypertension This was difficult to control, but ultimately was reasonably controlled on maximum doses of isosorbide mononitrate, hydralazine, amlodipine, and doxazosin; along with carvedilol with further increase in carvedilol dosing limited by heart rate. 5. 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 She receieved 1 dose of erythropoeitin and was transfused 1 unit of packed RBCs. 6. Gastritis She was treated empirically with PPI. 7. COPD exacerbation 8. Acute hypoxic respiratory failure This resolved after a 5-day steroid burst. 9. Klebsiella UTI She was treated with 5 days of IV ceftriaxone and symptoms resolved. Short-term rehabilitation at SNF was recommended but she refused. She was d ischarged home with VNA services for medication management, disease teaching, laboratory monitoring, and PT. Time Spent with Patient Time attestation: Total time spent providing and/or coordinating discharge services: Physical Exam Vital Signs: Vital Signs: Vital Signs Temp Pulse Resp BP Pulse Ox 01/12/20 11:09 97.1 F 56 18 157/71 H 97 01/12/20 08:39 60 157/90 H 01/12/20 08:38 60 157/90 H 01/12/20 08:37 60 157/90 H 01/12/20 08:36 60 157/90 H 01/12/20 07:06 97.7 F 60 18 157/90 H 95 01/12/20 03:56 98.7 F 61 20 160/68 H 94 01/11/20 23:44 98.3 F 88 18 158/69 H 94 01/11/20 21:37 65 148/73 H 01/11/20 21:36 65 148/73 H 01/11/20 20:00 97.2 F 59 16 148/73 H 96 01/11/20 15:32 97.6 F 62 20 147/64 H 96 01/11/20 14:42 64 138/68 Body Mass Index 32.1 Const: General: no acute distress Chest: Chest palpation & inspection: normal inspection of the chest Resp: Effort & Inspection: normal respiratory effort Auscultation: clear to auscultation bilaterally Cardio: Rate: regular rate Rhythm: regular rhythm Heart sounds: no murmurs GI: Inspection: Yes normal to inspection Palpation (GI): Soft to palpation and nontender Extrem: General: Yes no clubbing, cyanosis or edema DS: Data Data Completed and Pending Labs on day of discharge: Labs from last 24 hours 01/12/20 01/12/20 01/12/20 11:08 09:14 07:05 Sodium 134 L Potassium 4.1 Chloride 101 Carbon Dioxide 25 Anion Gap 12 BUN 47 H Creatinine 2.97 H Estim Creat Clear Calc 15.0 Estimated GFR 15 POC Glucose 194 H 127 H Random Glucose 193 H D Calcium 8.1 L 01/11/20 01/11/20 21:26 17:29 Sodium Potassium Chloride Carbon Dioxide Anion Gap BUN Creatinine Estim Creat Clear Calc Estimated GFR POC Glucose 172 H 181 H Random Glucose Calcium TTE 02/02/20: - The left ventricular systolic function is hyperdynamic. The visually estimated ejection fraction is >70%. - The basal inferior segment is hypokinetic. - No obvious valvular pathology seen on this study. Discharge Plan Discharge Patient Disposition: Home Health Service Referrals: [facility] [Outside] Yuki De Dios MD [Primary Care Provider] - Dash Batista MD [Physician] - Frantz Cardeans MD [Physician] - Discharge Medications: New isosorbide mononitrate 60 mg Tablet Extended Release 24 Hr 120 mg PO DAILY Qty: 60 RF: 0 atorvastatin 80 mg Tablet 80 mg PO BEDTIME Qty: 30 RF: 0 doxazosin 4 mg tablet 12 mg PO DAILY Qty: 90 RF: 0 aspirin 81 mg Tablet,Delayed Release (Dr/Ec) 81 mg PO DAILY Qty: 30 RF: 0 polyethylene glycol 3350 17 gram Powder In Packet 17 g PO DAILY PRN (Reason: constipation) Qty: 30 RF: 0 omeprazole 20 mg Capsule,Delayed Release(Dr/Ec) 20 mg PO BIDAC Qty: 60 RF: 0 hydralazine 100 mg tablet 100 mg PO TID Qty: 90 RF: 0 amiodarone 400 mg tablet 400 mg PO BID Qty: 4 RF: 0 amiodarone 200 mg tablet 200 mg PO DAILY Qty: 30 RF: 0 Continued insulin aspart U-100 [Novolog Flexpen U-100 Insulin] 100 unit/mL (3 mL) Insulin Pen 7 - 9 unit SUBCUT TID RF: 0 carvedilol 6.25 mg Tablet 6.25 mg PO BID RF: 0 amlodipine 10 mg Tablet 10 mg PO DAILY RF: 0 levothyroxine 50 mcg Tablet 50 mcg PO DAILY RF: 0 cholecalciferol (vitamin D3) 50 mcg (2,000 unit) Capsule 50 mcg PO DAILY RF: 0 Tradjenta 5 mg Tablet 5 mg PO DAILY RF: 0 ferrous gluconate 324 mg (37.5 mg iron) Tablet 324 mg PO BID RF: 0 Tresiba FlexTouch U-200 200 unit/mL (3 mL) Insulin Pen 46 unit SUBCUT DAILY RF: 0 Discontinued hydralazine 25 mg Tablet 25 mg PO TID RF: 0 isosorbide mononitrate 60 mg Tablet Extended Release 24 Hr 60 mg PO DAILY RF: 0 gabapentin 300 mg Capsule 300 mg PO TID RF: 0 Discharge Orders: Discharge Order (Routine); Ordered 01/12/20 Ordered By: Minnie Crawford Diet: diabetic diet Activity on Discharge: As tolerated Visit Report Forms: Patient Portal Discharge page Care Plan Goals: see Plan of Treatment Health Concerns: see Plan of Treatment Plan of Treatment: 1. Acute on chronic renal failure Please have basic metabolic panel drawn in 1 week. Avoid all NSAIDs (ibuprofen, naproxen, etc) Follow up with Nephrology in 2 weeks [[facility]]: [facility] [address] [place] [address] 2. NSTEMI 3. Atrial fibrillation 4. Hypertension Amiodarone: 400 mg twice daily on 01/13/20, then 200 mg once daily Discuss anticoagulation as an outpatient. Start atorvastatin 80 mg and aspirin 81 mg daily. For blood pressure, take doxazosin 12 mg daily, hydralazine 100 mg 3x a day, amlodipine 10 mg daily, carvedilol 6.25 mg 2x a day, and isosorbide mononitrate 120 mg daily. Please follow up with Cardiology in 2 weeks: [address] [facility] [place] [address] 5. Gastritis Take omeprazole 20 mg twice daily.
[2020-01-12] MEDS: Insulin Lispro 100 UNIT/ML 3 ML VIAL SUBCUT (11:54)
--- NOTE | 2020-01-12 16:34 | MHC.CM.PN ---
pt is requiring [facility] transportation for return home. her is at home and waiting for her. she is strongly refusing str and is demanding home c vna only for dc plan. she is a max assist of 2 with transfer from bed to in her room per rn's report. cm to cont. to follow.
== END 2020-01-12 18:00 | disposition home health service (06) | DRG 682 ==
LOC: HO.ED 15:21 → HO.IMC 17:05
PROVIDERS: Family Medicine; Internal Medicine; Internal Medicine Nephrology; Admitting Provider Internal Medicine; Emergency Provider Emergency Medicine; PCP Internal Medicine; Visit Provider Family Medicine
DX: I12.9 Hypertensive chronic kidney disease with stage 1 through stage 4 chronic kidney disease, or unspecified chronic kidney disease (principal); J96.01 Acute respiratory failure with hypoxia; I21.4 Non-ST elevation (NSTEMI) myocardial infarction; N39.0 Urinary tract infection, site not specified; J44.1 Chronic obstructive pulmonary disease with (acute) exacerbation; N18.4 Chronic kidney disease, stage 4 (severe); N17.9 Acute kidney failure, unspecified; E11.22 Type 2 diabetes mellitus with diabetic chronic kidney disease; N18.30 Chronic kidney disease, stage 3 unspecified; I25.10 Atherosclerotic heart disease of native coronary artery without angina pectoris; Z23 Encounter for immunization; E03.9 Hypothyroidism, unspecified; K21.9 Gastro-esophageal reflux disease without esophagitis; I48.0 Paroxysmal atrial fibrillation; E11.21 Type 2 diabetes mellitus with diabetic nephropathy; B96.1 Klebsiella pneumoniae [K. pneumoniae] as the cause of diseases classified elsewhere; D63.1 Anemia in chronic kidney disease; G47.33 Obstructive sleep apnea (adult) (pediatric); K29.70 Gastritis, unspecified, without bleeding; G25.70 Drug induced movement disorder, unspecified; T42.6X5A Adverse effect of other antiepileptic and sedative-hypnotic drugs, initial encounter; Y92.230 Patient room in hospital as the place of occurrence of the external cause; Z88.6 Allergy status to analgesic agent; Z79.4 Long term (current) use of insulin; Z79.82 Long term (current) use of aspirin; Z79.890 Hormone replacement therapy; Z79.899 Other long term (current) drug therapy
CPT/HCPCS: 36415; 71045; 74150; 80048; 80076; 81001; 81003; 82570; 82607; 82728; 82746; 82784; 82947; 83036; 83540; 83605; 83735; 83880; 84156; 84443; 84460; 84484; 84540; 85025; 85610; 85730; 86334; 86850; 86901; 86920; 86923; 87040; 87086; 87088; 87186; 90686; 93005; 93010; 93306; 93970; 93971; 97110; 97116; 97162; 99225; 99232; 99284; 99285; C1758; J1200; J1940; J2270; J2405; J2930; P9016

== ENCOUNTER 2020-01-21 12:21 | Outpatient (REF) | payer MEDICARE, OTHER, SELFPAY ==
[2020-01-21 13:12] LABS: Anion Gap 15 (12-20); Blood Urea Nitrogen 39 mg/dL (9-16); Calcium 7.8 mg/dL (8.4-10.2); Carbon Dioxide 21 mmol/L (22-29); Chloride 106 mmol/L (96-108); Estimated Glomerular Filt Rate 16; Glucose Random 185 mg/dL (60-115); Potassium 4.6 mmol/l (3.3-5.1); Sodium 137 mmol/L (135-145)
== END 2020-01-21 12:22 | disposition home or self-care (01) ==
LOC: HO.LNP 12:21
PROVIDERS: Family Medicine; Visit Provider Internal Medicine
DX: N18.9 Chronic kidney disease, unspecified (principal); N17.9 Acute kidney failure, unspecified; I50.9 Heart failure, unspecified; G93.41 Metabolic encephalopathy
CPT/HCPCS: 80048

== ENCOUNTER 2020-03-08 11:10 | Inpatient (IN) | payer MEDICARE, OTHER, SELFPAY ==
[2020-03-08] VITALS (11 sets, daily range): BP systolic 143–184; BP diastolic 39–104; PULSE 61–73; RESP 16–24; TEMP 32.4–37.7; O2SAT 97–99; BMI 37.0
--- NOTE | 2020-03-08 11:19 | ECG_ITS ---
Test Reason : ALTER MENTAL Blood Pressure : / mmHG Vent. Rate : 068 BPM Atrial Rate : 068 BPM P-R Int : 156 ms QRS Dur : 074 ms QT Int : 418 ms P-R-T Axes : 033 009 092 degrees QTc Int : 444 ms Artifact in tracing Normal sinus rhythm Nonspecific ST and T wave abnormality Abnormal ECG When compared with ECG of 06-JAN-2020 10:55, Nonspecific T wave abnormality now evident in Anterior leads Referred By: Mary Sharma Electronically Signed By:MOMO APARICIO
--- NOTE | 2020-03-08 11:19 | XR_ITS ---
EXAMINATION: XR CHEST CLINICAL INFORMATION: Altered mental status COMPARISON: 12/29/2019 TECHNIQUE: Frontal view of the chest was obtained. FINDINGS: Lungs are symmetrically expanded and clear. No evidence of edema, consolidation or pleural effusion. Cardiac silhouette has normal size and contour. There is atherosclerotic calcification of the aorta. The visualized bones are intact. No pneumoperitoneum. XR/XR chest 1V IMPRESSION: No acute pulmonary disease.
--- NOTE | 2020-03-08 11:19 | CT_ITS ---
EXAMINATION: CT HEAD W/O IV CONTRAST CT CERVICAL SPINE W/O IV CONTRAST CLINICAL INFORMATION: Altered mental status. Possible fall. Hypoglycemia. COMPARISON: Prior CT exams from 10/22/2018. Brain MRI from 10/22/2018. TECHNIQUE: Head - Contiguous axial imaging of the head was performed from the skull base to the vertex without the administration of intravenous contrast, and axial images are reconstructed at 2 mm and 5 mm slice thickness. Cervical spine - A volumetric, helical CT acquisition of the cervical spine was obtained without contrast; in addition to the standard set of axial images, multiplanar reformatted images were provided in the coronal and sagittal imaging planes. This CT examination was performed using dose optimization techniques as appropriate, variously including the following: *Automated exposure control *Adjustment of mA and/or kV according to patient size (this includes techniques or standardized protocols for targeted exams where dose is matched to indication/reason for exam; i.e. extremities or head) *Use of iterative reconstruction technique DLP: 1079 mGy-cm (total) FINDINGS: HEAD: No intracranial hemorrhage, extra-axial fluid collection, focal mass effect or midline shift. Atherosclerotic calcification of cavernous carotid arteries. Chronic small vessel ischemic changes of the supratentorial white matter. 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 Also, there is encephalomalacia from an old left occipital lobe infarct, which is a new finding compared to 10/22/2018. No evidence of an acute major vascular territory infarction. The cerebellar tonsils are normal position. Chronic texk-cd-jddjifha atrophy of cerebral hemispheres with commensurate prominence of ventricles and sulci. No hydrocephalus. There is hyperostosis frontalis interna. The calvarium is intact. The mastoid air cells and middle ear cavities are well aerated. Temporomandibular joints are unremarkable. No air-fluid levels within paranasal sinuses. Chronic mucoperiosteal thickening of the left maxillary sinus. Lenses are extracted from the globes of each orbit. CERVICAL SPINE: The cervical spine has normal curvature. No acute abnormalities compared to 10/22/2018. The craniocervical junction is normal. The occipital condyles, dens and atlantodental articulation are intact. The vertebral body heights and alignment are maintained. No fractures in the anterior or posterior elements. No prevertebral soft tissue swelling. The mild degenerative changes in the cervical spine has a stable appearance compared to 10/22/2018. No significant narrowing of the central spinal canal. No soft tissue hematoma in the neck. 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 No apical pneumothorax. CT/CT cervical spine wo con IMPRESSION: * No hemorrhage or other acute intracranial pathology. * Chronic small vessel ischemic changes of supratentorial white matter and old lacunar infarcts. 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 * No fracture or malalignment in the mildly degenerated cervical spine.
--- NOTE | 2020-03-08 11:33 | ED.AMS ---
HPI - Altered Mental Status General Chief Complaint: Altered Mental Status Stated Complaint: Altered Mental Time Seen by Provider: 03/08/20 11:14 Source: patient and EMS Mode of arrival: EMS History of Present Illness HPI narrative: 79-year-old female PMHx CKD, new onset AFib, NSTEMI, HTN, anemia, gastritis, COPD, recently admitted for sepsis secondary to UTI and NSTEMI, BIBA for AMS this morning noted by spouse, around 9:30a.m. spouse came home with coffee and found patient on floor, states was acting different prior to this, unknown last well time. Patient reports she was in bed, unknown fall or head trauma, unknown LOC, does not remember incidence. Was found to have a glucose of 39 by EMS. Patient reports SOB, chills, generalized fatigue/weakness. Unknown when last took insulin. Denies fever, chills, cough, abdominal pain, headache, nausea/vomiting, LE edema MD complaint: altered mental status Onset (ago): day(s) Related Data Home Medications Medication Instructions Recorded Confirmed blood sugar diagnostic #10 ea 12/24/19 12/29/19 lancets 33 gauge #100 ea 12/24/19 12/29/19 pen needle, diabetic 32 gauge x #50 ea 12/24/19 12/29/19 Tresiba FlexTouch U-200 46 unit SUBCUT DAILY 12/29/19 03/08/20 ferrous gluconate 324 mg PO BID 12/29/19 03/08/20 insulin aspart U-100 [Novolog 7 - 9 unit SUBCUT TID 12/29/19 03/08/20 Flexpen U-100 Insulin] levothyroxine 50 mcg PO DAILY 12/29/19 03/08/20 amiodarone 200 mg PO DAILY 03/08/20 03/08/20 polyethylene glycol 3350 17 g PO DAILY PRN 03/08/20 03/08/20 Previous Rx's Medication Instructions Recorded carvedilol 6.25 mg tablet 6.25 mg PO BID #60 tab 02/03/20 linagliptin 5 mg tablet 5 mg PO DAILY #30 tab 02/10/20 cholecalciferol (vitamin D3) 50 50 mcg PO DAILY #30 cap 02/14/20 mcg (2,000 unit) capsule amlodipine 10 mg tablet 10 mg PO DAILY #30 tab 02/20/20 aspirin 81 mg chewable tablet 1 tab PO DAILY #30 tab 02/20/20 atorvastatin 80 mg tablet 80 mg PO BEDTIME #30 tab 02/20/20 doxazosin 4 mg tablet 12 mg PO DAILY #90 tab 02/20/20 hydralazine 100 mg tablet 100 mg PO BID #90 tab 02/20/20 isosorbide mononitrate 120 mg 120 mg PO DAILY #30 tab 02/20/20 tablet,extended release 24 hr omeprazole 20 mg capsule,delayed 20 mg PO BID #60 cap 02/20/20 release Allergies Allergy/AdvReac Type Severity Reaction Status Date / Time oxycodone Allergy Unknown rash Verified 12/29/19 11:15 Review of Systems Review of Systems: Constitutional: No Weight loss, No Fever, + Chills, No Night Sweats, No Fatigue, No Malaise Eyes: No Eye Pain, No Vision Changes Cardiovascular: No Chest Pain, + SOB, No Dyspnea on Exertion, No Orthopnea, No Edema Respiratory: No Cough, No Sputum, + Wheezing Gastrointestinal: No Nausea, No Vomiting, No Diarrhea, No Constipation, No Abdominal pain Genitourinary: No Dysuria, No Urinary Frequency, No Hematuria Musculoskeletal: No joint pain, No Myalgias, No Joint Swelling Skin: No Skin Lesions, No rash Neuro: + Weakness, No Numbness, No Paresthesias, Unknown Loss of Consciousness, No Dizziness, No Headache Yes all other systems are reviewed and are negative [facility] Past Medical History Attestation statement: The following information was validated with the patient. Medical History (Updated 03/08/20 @ 13:43 by DIANA Saab) Anemia Bronchitis CAD (coronary artery disease) Carotid stenosis, bilateral CKD (chronic kidney disease) Diabetes Dyslipidemia GERD (gastroesophageal reflux disease) HTN (hypertension) Hypothyroid Obesity RAISA (obstructive sleep apnea) Surgical History H/O angioplasty H/O heart artery stent H/O: hysterectomy Social History Social History Household Members: Spouse Housing: House Alcohol intake: never Smoking Status: Never smoker Second Hand Smoke Exposure: Yes Advance Directives: No Advance Directives Information Provided: Yes service: No Physical Exam Vital Signs: Vital Signs: Last Vital Signs Temp 90.3 F L 12/10/20 12:03 Pulse 67 03/08/20 13:12 Resp 24 H 03/08/20 12:03 BP 143/104 H 03/08/20 12:03 Pulse Ox 99 03/08/20 12:03 Body Mass Index 37.0 Const: General: cooperative Orientation/consciousness: oriented to person and oriented to place Limitations: no limitations HENMT: Head: Yes normal to inspection Ears: hearing grossly normal bilaterally General nose exam: Normal external nose present Face and sinus: Yes normal facial exam Eyes: General: appearance normal, both eyes and all related structures Pupils: Equal, round and reactive pupils present EOM: EOMs intact bilaterally Neck: Neck: Yes normal visual inspection and Yes no meningeal signs Resp: Effort & Inspection: normal respiratory effort and tachypneic Auscultation: wheezes (bibasilar) and diminished lung sounds (bibasilar) Cardio: Rate: regular rate Heart sounds: S1 normal heart sound present and S2 normal heart sound present GI: Inspection: Yes normal to inspection Palpation (GI): Soft to palpation, nontender, no guarding and not rigid Skin: Rashes: no rashes Wounds: no wounds Neuro: General: oriented to person, oriented to place, tone normal, moves all extremities, no meningeal signs, no focal motor deficits and CN's II-XI intact bilaterally Cranial nerves: Yes Equal, round and reactive pupils present Coordination: [id number] test normal Extrem: General: Yes normal to inspection Course Course Course Narrative: -leukopenia of 4.8, H&H lower than baseline at 7.5, patient with chronic anemia> will transfuse 1 unit RBCs in the ED > two physician consent signed & in chart due to AMS -UA positive for bacteria and wbc's > likely source of infection -1311-- repeat fingerstick 59 > patient given more juice and D5 started -Head/C-spine CT w/o acute findings, CXR unremarkable -acute on chronic renal failure, COVID-19 negative > will admit for AMS due to UTI, anemia, & hypothermia MDM - Altered Mental Status MDM Narrative Medical decision making narrative: 79-year-old female PMHx CKD, new onset AFib, NSTEMI, HTN, anemia, gastritis, COPD, recently admitted for sepsis secondary to UTI and NSTEMI, BIBA for AMS this morning noted by spouse, found patient on floor, unknown fall or head trauma, had glucose of 39 by EMS. Patient reports SOB, chills, generalized fatigue/weakness. On exam tachypneic, appears short of breath, rectal temp hypothermic 90.3, initial glucose 57, given orange juice, A&Ox2. Concern for sepsis vs hypogylcemia vs metabolic/infectious etiology vs COPD exacerbation. R/o ICH/fx. Low concern for CVA Plan: EKG, labs, UA, head/C-spine CT, CXR, lactic/blood cultures, empiric IV antibiotics Lab Data Result diagrams: 03/08/20 11:56 03/08/20 11:55 Labs: Lab Results 03/08/20 03/08/20 03/08/20 Range/Units 11:48 11:55 11:55 WBC (4.8-10.8) X10*3/uL RBC (4.20-5.50) X10*6/uL Hgb (12.0-16.0) g/dl Hct (37-47) % MCV (80-98) fL MCH (27.0-33.0) pg MCHC (31.0-35.0) g/dl RDW (11.0-16.0) % Plt Count (160-400) X10*3/uL MPV (9.4-12.3) fL Immature Gran % (Auto) (0.0-0.4) % Neut % (Auto) (45-73) % Lymph % (Auto) (20-40) % [place] % (Auto) (2-11) % Eos % (Auto) (0-4) % Baso % (Auto) (0-2) % Lymph # (Auto) (1.2-4.9) X10*3/uL [place] # (Auto) (0.1-1.2) X10*3/uL Eos # (Auto) (0.0-0.4) X10*3/uL Baso # (Auto) (0.0-0.2) X10*3/uL Abs Immat Gran (auto) (0.00-0.03) X10*3/uL Absolute Neuts (auto) (2.0-8.3) X10*3/uL Absolute Nucleated RBC (0.0-0.012) X10*3/uL Nucleated RBC % (auto) (0.0-0.2) /100WBC PT 12.2 (10.8-13.0) SEC INR 1.0 (0.9-1.1) APTT 42.2 H (24.1-38.0) SEC Sodium 140 (135-145) mmol/L Potassium 4.9 (3.3-5.1) mmol/l Chloride 107 (96-108) mmol/L Carbon Dioxide 26 (22-29) mmol/L Anion Gap 12 (12-20) BUN 24 H (9-16) mg/dL Creatinine 2.28 H (0.5-1.4) mg/dL Estim Creat Clear Calc 19.5 Estimated GFR 21 POC Glucose (60-115) mg/dL Random Glucose 87 D (60-115) mg/dL Lactic Acid (0.5-2.0) mmol/L Calcium 7.9 L (8.4-10.2) mg/dL Magnesium 2.4 (1.6-2.6) mg/dL Total Bilirubin 0.2 (0.0-1.0) mg/dL Direct Bilirubin 0.2 (0.0-0.5) mg/dL AST 22 (5-31) U/L ALT 14 (0-31) U/L Alkaline Phosphatase 83 (39-117) U/L Total Creatine Kinase 63 (26-140) U/L Troponin I High Sens (<3.5-17.0) ng/L B-Natriuretic Peptide (<100) pg/mL Total Protein 5.3 L (6.5-8.0) g/dL Albumin 2.9 L (3.5-5.0) g/dL Lipase 92 H (8-78) U/L Urine Color YELLOW Urine Appearance CLOUDY Urine pH 6.0 (5.0-8.0) Ur Specific [place] 1.020 (1.005-1.025) Urine Protein 3+ H (NEG-TRACE) MG/DL Urine Glucose (UA) NEG (NEG) MG/DL Urine Ketones NEG (NEG) MG/DL Urine Blood NEG (NEG) Urine Nitrite NEG (NEG) Ur Leukocyte Esterase NEG (NEG) Urine RBC 0 (0) /HPF Urine WBC 10-14 H (0-4) /HPF Ur Squamous Epith Cells TRACE /LPF Ur Renal Epithelial Cell TRACE /LPF Urine Bacteria 4+ /LPF Coronavirus (PCR) COVID-19 (ADRIANA) (Negative) COVID-19 Clin Com Influenza Type A (PCR) Influenza Type B (PCR) RSV RNA Qual (PCR) 03/08/20 03/08/20 03/08/20 Range/Units 11:55 11:55 11:56 WBC 4.8 (4.8-10.8) X10*3/uL RBC 2.70 L D (4.20-5.50) X10*6/uL Hgb 7.5 L (12.0-16.0) g/dl Hct 23.8 L (37-47) % MCV 88.1 (80-98) fL MCH 27.8 (27.0-33.0) pg MCHC 31.5 (31.0-35.0) g/dl RDW 19.9 H (11.0-16.0) % Plt Count 260 (160-400) X10*3/uL MPV 10.1 (9.4-12.3) fL Immature Gran % (Auto) 1.2 H (0.0-0.4) % Neut % (Auto) 64.9 (45-73) % Lymph % (Auto) 21.9 (20-40) % [place] % (Auto) 8.3 (2-11) % Eos % (Auto) 3.3 (0-4) % Baso % (Auto) 0.4 (0-2) % Lymph # (Auto) 1.1 L (1.2-4.9) X10*3/uL [place] # (Auto) 0.4 (0.1-1.2) X10*3/uL Eos # (Auto) 0.2 (0.0-0.4) X10*3/uL Baso # (Auto) 0.0 (0.0-0.2) X10*3/uL Abs Immat Gran (auto) 0.06 H (0.00-0.03) X10*3/uL Absolute Neuts (auto) 3.1 (2.0-8.3) X10*3/uL Absolute Nucleated RBC 0.000 (0.0-0.012) X10*3/uL Nucleated RBC % (auto) 0.0 (0.0-0.2) /100WBC PT (10.8-13.0) SEC INR (0.9-1.1) APTT (24.1-38.0) SEC Sodium (135-145) mmol/L Potassium (3.3-5.1) mmol/l Chloride (96-108) mmol/L Carbon Dioxide (22-29) mmol/L Anion Gap (12-20) BUN (9-16) mg/dL Creatinine (0.5-1.4) mg/dL Estim Creat Clear Calc Estimated GFR POC Glucose (60-115) mg/dL Random Glucose (60-115) mg/dL Lactic Acid 1.0 (0.5-2.0) mmol/L Calcium (8.4-10.2) mg/dL Magnesium (1.6-2.6) mg/dL Total Bilirubin (0.0-1.0) mg/dL Direct Bilirubin (0.0-0.5) mg/dL AST (5-31) U/L ALT (0-31) U/L Alkaline Phosphatase (39-117) U/L Total Creatine Kinase (26-140) U/L Troponin I High Sens 5.2 (<3.5-17.0) ng/L B-Natriuretic Peptide 212 H (<100) pg/mL Total Protein (6.5-8.0) g/dL Albumin (3.5-5.0) g/dL Lipase (8-78) U/L Urine Color Urine Appearance Urine pH (5.0-8.0) Ur Specific [place] (1.005-1.025) Urine Protein (NEG-TRACE) MG/DL Urine Glucose (UA) (NEG) MG/DL Urine Ketones (NEG) MG/DL Urine Blood (NEG) Urine Nitrite (NEG) Ur Leukocyte Esterase (NEG) Urine RBC (0) /HPF Urine WBC (0-4) /HPF Ur Squamous Epith Cells /LPF Ur Renal Epithelial Cell /LPF Urine Bacteria /LPF Coronavirus (PCR) COVID-19 (ADRIANA) (Negative) COVID-19 Clin Com Influenza Type A (PCR) Influenza Type B (PCR) RSV RNA Qual (PCR) 03/08/20 03/08/20 03/08/20 Range/Units 11:57 11:58 12:33 WBC (4.8-10.8) X10*3/uL RBC (4.20-5.50) X10*6/uL Hgb (12.0-16.0) g/dl Hct (37-47) % MCV (80-98) fL MCH (27.0-33.0) pg MCHC (31.0-35.0) g/dl RDW (11.0-16.0) % Plt Count (160-400) X10*3/uL MPV (9.4-12.3) fL Immature Gran % (Auto) (0.0-0.4) % Neut % (Auto) (45-73) % Lymph % (Auto) (20-40) % [place] % (Auto) (2-11) % Eos % (Auto) (0-4) % Baso % (Auto) (0-2) % Lymph # (Auto) (1.2-4.9) X10*3/uL [place] # (Auto) (0.1-1.2) X10*3/uL Eos # (Auto) (0.0-0.4) X10*3/uL Baso # (Auto) (0.0-0.2) X10*3/uL Abs Immat Gran (auto) (0.00-0.03) X10*3/uL Absolute Neuts (auto) (2.0-8.3) X10*3/uL Absolute Nucleated RBC (0.0-0.012) X10*3/uL Nucleated RBC % (auto) (0.0-0.2) /100WBC PT (10.8-13.0) SEC INR (0.9-1.1) APTT (24.1-38.0) SEC Sodium (135-145) mmol/L Potassium (3.3-5.1) mmol/l Chloride (96-108) mmol/L Carbon Dioxide (22-29) mmol/L Anion Gap (12-20) BUN (9-16) mg/dL Creatinine (0.5-1.4) mg/dL Estim Creat Clear Calc Estimated GFR POC Glucose (60-115) mg/dL Random Glucose (60-115) mg/dL Lactic Acid (0.5-2.0) mmol/L Calcium (8.4-10.2) mg/dL Magnesium (1.6-2.6) mg/dL Total Bilirubin (0.0-1.0) mg/dL Direct Bilirubin (0.0-0.5) mg/dL AST (5-31) U/L ALT (0-31) U/L Alkaline Phosphatase (39-117) U/L Total Creatine Kinase (26-140) U/L Troponin I High Sens Cancelled (<3.5-17.0) ng/L B-Natriuretic Peptide (<100) pg/mL Total Protein (6.5-8.0) g/dL Albumin (3.5-5.0) g/dL Lipase (8-78) U/L Urine Color Urine Appearance Urine pH (5.0-8.0) Ur Specific [place] (1.005-1.025) Urine Protein (NEG-TRACE) MG/DL Urine Glucose (UA) (NEG) MG/DL Urine Ketones (NEG) MG/DL Urine Blood (NEG) Urine Nitrite (NEG) Ur Leukocyte Esterase (NEG) Urine RBC (0) /HPF Urine WBC (0-4) /HPF Ur Squamous Epith Cells /LPF Ur Renal Epithelial Cell /LPF Urine Bacteria /LPF Coronavirus (PCR) Cancelled COVID-19 (ADRIANA) Negative (Negative) COVID-19 Clin Com See Note Influenza Type A (PCR) Cancelled Influenza Type B (PCR) Cancelled RSV RNA Qual (PCR) Cancelled 03/08/20 Range/Units 13:07 WBC (4.8-10.8) X10*3/uL RBC (4.20-5.50) X10*6/uL Hgb (12.0-16.0) g/dl Hct (37-47) % MCV (80-98) fL MCH (27.0-33.0) pg MCHC (31.0-35.0) g/dl RDW (11.0-16.0) % Plt Count (160-400) X10*3/uL MPV (9.4-12.3) fL Immature Gran % (Auto) (0.0-0.4) % Neut % (Auto) (45-73) % Lymph % (Auto) (20-40) % [place] % (Auto) (2-11) % Eos % (Auto) (0-4) % Baso % (Auto) (0-2) % Lymph # (Auto) (1.2-4.9) X10*3/uL [place] # (Auto) (0.1-1.2) X10*3/uL Eos # (Auto) (0.0-0.4) X10*3/uL Baso # (Auto) (0.0-0.2) X10*3/uL Abs Immat Gran (auto) (0.00-0.03) X10*3/uL Absolute Neuts (auto) (2.0-8.3) X10*3/uL Absolute Nucleated RBC (0.0-0.012) X10*3/uL Nucleated RBC % (auto) (0.0-0.2) /100WBC PT (10.8-13.0) SEC INR (0.9-1.1) APTT (24.1-38.0) SEC Sodium (135-145) mmol/L Potassium (3.3-5.1) mmol/l Chloride (96-108) mmol/L Carbon Dioxide (22-29) mmol/L Anion Gap (12-20) BUN (9-16) mg/dL Creatinine (0.5-1.4) mg/dL Estim Creat Clear Calc Estimated GFR POC Glucose 59 L* (60-115) mg/dL Random Glucose (60-115) mg/dL Lactic Acid (0.5-2.0) mmol/L Calcium (8.4-10.2) mg/dL Magnesium (1.6-2.6) mg/dL Total Bilirubin (0.0-1.0) mg/dL Direct Bilirubin (0.0-0.5) mg/dL AST (5-31) U/L ALT (0-31) U/L Alkaline Phosphatase (39-117) U/L Total Creatine Kinase (26-140) U/L Troponin I High Sens (<3.5-17.0) ng/L B-Natriuretic Peptide (<100) pg/mL Total Protein (6.5-8.0) g/dL Albumin (3.5-5.0) g/dL Lipase (8-78) U/L Urine Color Urine Appearance Urine pH (5.0-8.0) Ur Specific [place] (1.005-1.025) Urine Protein (NEG-TRACE) MG/DL Urine Glucose (UA) (NEG) MG/DL Urine Ketones (NEG) MG/DL Urine Blood (NEG) Urine Nitrite (NEG) Ur Leukocyte Esterase (NEG) Urine RBC (0) /HPF Urine WBC (0-4) /HPF Ur Squamous Epith Cells /LPF Ur Renal Epithelial Cell /LPF Urine Bacteria /LPF Coronavirus (PCR) COVID-19 (ADRIANA) (Negative) COVID-19 Clin Com Influenza Type A (PCR) Influenza Type B (PCR) RSV RNA Qual (PCR) Discharge Plan Discharge Clinical Impression: Acute UTI, Hypoglycemia, Altered mental status, CKD (chronic kidney disease), Anemia, COPD (chronic obstructive pulmonary disease) Patient Disposition: Admitted As Inpatient
[2020-03-08 12:14] LABS: MANUAL DIFF FLAG NO
[2020-03-08 12:17] LABS: Basophils Percent Auto 0.4 % (0-2); Eosinophils Absolute Auto 0.2 X10*3/uL (0.0-0.4); Eosinophils Percent Auto 3.3 % (0-4); Hematocrit 23.8 % (37-47); Hemoglobin 7.5 g/dl (12.0-16.0); Imm Gran Abs Auto 0.06 X10*3/uL (0.00-0.03); Imm Gran Pct Auto 1.2 % (0.0-0.4); Lymphocytes Absolute Auto 1.1 X10*3/uL (1.2-4.9); Lymphocytes Percent Auto 21.9 % (20-40); Mean Corpuscular HGB Conc 31.5 g/dl (31.0-35.0); Mean Corpuscular Hemoglobin 27.8 pg (27.0-33.0); Mean Corpuscular Volume 88.1 fL (80-98); Mean Platelet Volume 10.1 fL (9.4-12.3); Monocytes Absolute Auto 0.4 X10*3/uL (0.1-1.2); Monocytes Percent Auto 8.3 % (2-11); Neutrophils Absolute Auto 3.1 X10*3/uL (2.0-8.3); Neutrophils Percent Auto 64.9 % (45-73); Platelet Count 260 X10*3/uL (160-400); Red Cell Distribution Width 19.9 % (11.0-16.0); White Blood Count 4.8 X10*3/uL (4.8-10.8)
[2020-03-08 12:23] LABS: Appearance Urine CLOUDY; Color Urine YELLOW; Glucose Urine UA NEG (NEG); Leukocyte Esterase Urine NEG (NEG); Nitrite Urine NEG (NEG); Urine Blood NEG (NEG); Urine Ketones NEG (NEG); Urine Protein 3+ MG/DL (NEG-TRACE)
[2020-03-08 12:25] LABS: Prothrombin Time 12.2 SEC (10.8-13.0)
[2020-03-08 12:28] LABS: Partial Thromboplastin Time 42.2 SEC (24.1-38.0)
[2020-03-08 12:36] LABS: Bacteria Urine 4+ /LPF; RBC Urine 0 /HPF (0); Renal Epithelial Cells Urine TRACE /LPF; Squamous Epithelial Cell Urine TRACE /LPF; UACC CULT YES
[2020-03-08 12:51] LABS: COVID-19 Test Negative (Negative)
[2020-03-08 12:55] LABS: B Type Natriuretic Peptide 212 pg/mL (<100); Troponin-I High Sensitivity 5.2 ng/L (<3.5-17.0)
[2020-03-08] MEDS: cefEPime HCl 2 GM in 0.9 % Sodium Chloride 50 ML IV (13:11)
[2020-03-08 13:12] LABS: Glucose, Whole Blood 59 mg/dL (60-115)
[2020-03-08] MEDS: Albuterol/Iprat 2.5/0.5MG 3 ML AMPUL.NEB INHALE (13:12)
[2020-03-08 13:16] LABS: Alanine Aminotransferase 14 U/L (0-31); Albumin Level 2.9 g/dL (3.5-5.0); Alkaline Phosphatase 83 U/L (39-117); Anion Gap 12 (12-20); Aspartate Amino Transferase 22 U/L (5-31); Bilirubin Direct 0.2 mg/dL (0.0-0.5); Bilirubin Total 0.2 mg/dL (0.0-1.0); Blood Urea Nitrogen 24 mg/dL (9-16); Calcium 7.9 mg/dL (8.4-10.2); Carbon Dioxide 26 mmol/L (22-29); Chloride 107 mmol/L (96-108); Creatinine Clr Calc Pharmacy 19.5; Estimated Glomerular Filt Rate 21; Glucose Random 87 mg/dL (60-115); Magnesium 2.4 mg/dL (1.6-2.6); Potassium 4.9 mmol/l (3.3-5.1); Sodium 140 mmol/L (135-145); Total Protein 5.3 g/dL (6.5-8.0)
[2020-03-08 13:38] LABS: Lipase 92 U/L (8-78)
[2020-03-08 14:15] LABS: Glucose, Whole Blood 82 mg/dL (60-115)
[2020-03-08] MEDS: Dextrose 5 % 1,000 ML 125 ML IVCONT (14:21)
[2020-03-08 15:52] LABS: Glucose, Whole Blood 100 mg/dL (60-115)
--- NOTE | 2020-03-08 16:04 | P.HPHOSP_ITS ---
History of Present Illness Date of Service: 03/08/20 <DIANA Kennedy - Last Filed: 03/08/20 16:24> Chief Complaint: Altered mental status <DIANA Kennedy - Last Filed: 03/08/20 16:24> This is a 79-year-old female multiple medical problems who was brought to the emergency department mental status. She was found of 39 by EMS. She received glucose EN route. On arrival her point of care was 57. She was started D5. She was also noted to be hypothermic, documented temperatures vary at 95, 90, 97.3. Belkys Hugger was placed. She met sepsis criteria given hypothermia and to documented heart rates above 20. Lab work revealed no leukocytosis. H/H had dropped to 7.5/23.8 from 9.2/28.9 on 01/11/2020. Creatinine was near her baseline at 2.28. Brain CT, C-spine CT and chest x-ray were unremarkable. During my evaluation patient was awake and alert and able to answer all questions appropriately. Patient denies any dark black or bloody stool. Her urinalysis had white cells and bacteria but she denied dysuria. She denied cough, shortness of breath, fever. She reports chills. she reports decreased appetitie. She was treated with the cefepime empirically. <DIANA Kennedy - Last Filed: 03/08/20 16:24> Review of Systems Review of Systems: Yes all other systems are reviewed and are negative <DIANA Kennedy - Last Filed: 03/08/20 16:24> Constitutional: Constitutional: Reports chills and Denies fever(s) <DIANA Kennedy - Last Filed: 03/08/20 16:24> Cardiovascular: Cardiovascular: Denies chest pain <DIANA Kennedy - Last Filed: 03/08/20 16:24> Respiratory: Respiratory: Denies cough <DIANA Kennedy Last Filed: 03/08/20 16:24> Gastrointestinal: Gastrointestinal: Denies abdominal pain <DIANA Kennedy Last Filed: 03/08/20 16:24> [facility] Medical History: Medical History Anemia Bronchitis CAD (coronary artery disease) Carotid stenosis, bilateral CKD (chronic kidney disease) COPD (chronic obstructive pulmonary disease) Diabetes Dyslipidemia Gastritis GERD (gastroesophageal reflux disease) HTN (hypertension) Hypothyroid Obesity RAISA (obstructive sleep apnea) PAF (paroxysmal atrial fibrillation) <DIANA Kennedy - Last Filed: 03/08/20 16:24> Functional capacity: independent ambulation <DINAA Kennedy - Last Filed: 03/08/20 16:24> Family history: reviewed and not pertinent <DIANA Kennedy - Last Filed: 03/08/20 16:24> Surgical History: Surgical History H/O angioplasty H/O heart artery stent H/O: hysterectomy <DIANA Kennedy - Last Filed: 03/08/20 16:24> Social History: Social History Household Members: Spouse Housing: House Do you presently have visiting nurse or other home services: No Alcohol intake: never Smoking Status: Former smoker Second Hand Smoke Exposure: Yes Use of substances other than those prescribed or required for medical reasons: No Have you been hit, kicked, punched, or otherwise hurt by someone within the past year? If so, by whom?: No Do you feel safe in your current relationship?: Yes Is there a partner from a previous relationship who is making you feel unsafe now?: No Are you made to feel afraid or neglected: No Advance Directives: No Advance Directives Information Provided: Yes Do you have thoughts of harming others: None Do you have a plan to hurt others: No Plan Recently lost weight without trying: No service: No Current occupational status: retired <DIANA Kennedy - Last Filed: 03/08/20 16:24> Meds Allergies/Adverse reactions: Allergies Allergy/AdvReac Type Severity Reaction Status Date / Time oxycodone Allergy Unknown rash Verified 12/29/19 11:15 <DIANA Kennedy - Last Filed: 03/08/20 16:24> Home medications: Home Medications Medication Instructions Recorded Confirmed Type blood sugar diagnostic #10 ea 12/24/19 12/29/19 History lancets 33 gauge #100 ea 12/24/19 12/29/19 History pen needle, diabetic 32 gauge x #50 ea 12/24/19 12/29/19 History Tresiba FlexTouch U-200 46 unit SUBCUT DAILY 12/29/19 03/08/20 History ferrous gluconate 324 mg PO BID 12/29/19 03/08/20 History insulin aspart U-100 [Novolog 7 - 9 unit SUBCUT TID 12/29/19 03/08/20 History Flexpen U-100 Insulin] levothyroxine 50 mcg PO DAILY 12/29/19 03/08/20 History polyethylene glycol 3350 17 g PO DAILY PRN 03/08/20 03/08/20 History <DIANA Kennedy - Last Filed: 03/08/20 16:24> Physical Exam Vital Signs and Narrative: Vital Signs: Last Vital Signs Temp 97.3 F 03/08/20 14:00 Pulse 64 03/08/20 14:00 Resp 16 03/08/20 14:00 BP 143/104 H 03/08/20 12:03 Pulse Ox 97 03/08/20 14:00 Body Mass Index 37.0 <DIANA Kennedy - Last Filed: 03/08/20 16:24> Const: General: cooperative, comfortable, alert and awake; No no acute distress <DIANA Kennedy Last Filed: 03/08/20 16:24> Nutritional Appearance: well nourished <DIANA Kennedy Last Filed: 03/08/20 16:24> Orientation/consciousness: patient oriented x3 <DIANA Kennedy Last Filed: 03/08/20 16:24> HENMT: Head: Yes normocephalic and Yes atraumatic <DIANA Kennedy Last Filed: 03/08/20 16:24> Eyes: Sclerae: sclerae normal <DIANA Kennedy Last Filed: 03/08/20 16:24> Chest: Chest palpation & inspection: normal inspection of the chest <DIANA Kennedy Last Filed: 03/08/20 16:24> Resp: Effort & Inspection: normal respiratory effort and no respiratory distress <DIANA Kennedy - Last Filed: 03/08/20 16:24> Auscultation: diminished lung sounds <DIANA Kennedy - Last Filed: 03/08/20 16:24> Cardio: Rate: regular rate <DIANA Kennedy - Last Filed: 03/08/20 16:24> Rhythm: regular rhythm <DIANA Kennedy - Last Filed: 03/08/20 16:24> GI: Palpation (GI): Soft to palpation and nontender <DIANA Kennedy - Last Filed: 03/08/20 16:24> Skin: General skin exam: no rashes or lesions noted <DIANA Kennedy - Last Filed: 03/08/20 16:24> Neuro: General: patient oriented x3 <DIANA Kennedy - Last Filed: 03/08/20 16:24> Cranial nerves: Yes CN's II-XII intact bilaterally and Yes Bilaterally intact EOM present <DIANA Kennedy - Last Filed: 03/08/20 16:24> Extrem: General: Yes normal to inspection <DIANA Kennedy - Last Filed: 03/08/20 16:24> Results Labs CBC and Chem 7: : 03/09/20 05:32 03/09/20 05:32 <DIANA Kennedy - Last Filed: 03/08/20 16:24> Labs: Laboratory Results - last 24 hr 03/08/20 03/08/20 03/08/20 11:48 11:55 11:55 MCV MCH MCHC RDW Plt Count MPV Immature Gran % (Auto) Neut % (Auto) Lymph % (Auto) [place] % (Auto) Eos % (Auto) Baso % (Auto) Lymph # (Auto) [place] # (Auto) Eos # (Auto) Baso # (Auto) Abs Immat Gran (auto) Absolute Neuts (auto) Absolute Nucleated RBC Nucleated RBC % (auto) PT 12.2 INR 1.0 APTT 42.2 H Anion Gap 12 Estim Creat Clear Calc 19.5 Estimated GFR 21 POC Glucose Random Glucose 87 D Lactic Acid Calcium 7.9 L Magnesium 2.4 Total Bilirubin 0.2 Direct Bilirubin 0.2 AST 22 ALT 14 Alkaline Phosphatase 83 Total Creatine Kinase 63 Troponin I High Sens B-Natriuretic Peptide Total Protein 5.3 L Albumin 2.9 L Lipase 92 H Urine Color YELLOW Urine Appearance CLOUDY Urine pH 6.0 Ur Specific [place] 1.020 Urine Protein 3+ H Urine Glucose (UA) NEG Urine Ketones NEG Urine Blood NEG Urine Nitrite NEG Ur Leukocyte Esterase NEG Urine RBC 0 Urine WBC 10-14 H Ur Squamous Epith Cells TRACE Ur Renal Epithelial Cell TRACE Urine Bacteria 4+ Coronavirus (PCR) COVID-19 (ADRIANA) COVID-19 Clin Com Influenza Type A (PCR) Influenza Type B (PCR) RSV RNA Qual (PCR) Blood Type Antibody Screen Crossmatch 03/08/20 03/08/20 03/08/20 11:55 11:55 11:56 MCV 88.1 MCH 27.8 MCHC 31.5 RDW 19.9 H Plt Count 260 MPV 10.1 Immature Gran % (Auto) 1.2 H Neut % (Auto) 64.9 Lymph % (Auto) 21.9 [place] % (Auto) 8.3 Eos % (Auto) 3.3 Baso % (Auto) 0.4 Lymph # (Auto) 1.1 L [place] # (Auto) 0.4 Eos # (Auto) 0.2 Baso # (Auto) 0.0 Abs Immat Gran (auto) 0.06 H Absolute Neuts (auto) 3.1 Absolute Nucleated RBC 0.000 Nucleated RBC % (auto) 0.0 PT INR APTT Anion Gap Estim Creat Clear Calc Estimated GFR POC Glucose Random Glucose Lactic Acid 1.0 Calcium Magnesium Total Bilirubin Direct Bilirubin AST ALT Alkaline Phosphatase Total Creatine Kinase Troponin I High Sens 5.2 B-Natriuretic Peptide 212 H Total Protein Albumin Lipase Urine Color Urine Appearance Urine pH Ur Specific [place] Urine Protein Urine Glucose (UA) Urine Ketones Urine Blood Urine Nitrite Ur Leukocyte Esterase Urine RBC Urine WBC Ur Squamous Epith Cells Ur Renal Epithelial Cell Urine Bacteria Coronavirus (PCR) COVID-19 (ADRIANA) COVID-19 Clin Com Influenza Type A (PCR) Influenza Type B (PCR) RSV RNA Qual (PCR) Blood Type Antibody Screen Crossmatch 03/08/20 03/08/20 03/08/20 11:57 11:58 12:33 MCV MCH MCHC RDW Plt Count MPV Immature Gran % (Auto) Neut % (Auto) Lymph % (Auto) [place] % (Auto) Eos % (Auto) Baso % (Auto) Lymph # (Auto) [place] # (Auto) Eos # (Auto) Baso # (Auto) Abs Immat Gran (auto) Absolute Neuts (auto) Absolute Nucleated RBC Nucleated RBC % (auto) PT INR APTT Anion Gap Estim Creat Clear Calc Estimated GFR POC Glucose Random Glucose Lactic Acid Calcium Magnesium Total Bilirubin Direct Bilirubin AST ALT Alkaline Phosphatase Total Creatine Kinase Troponin I High Sens Cancelled B-Natriuretic Peptide Total Protein Albumin Lipase Urine Color Urine Appearance Urine pH Ur Specific [place] Urine Protein Urine Glucose (UA) Urine Ketones Urine Blood Urine Nitrite Ur Leukocyte Esterase Urine RBC Urine WBC Ur Squamous Epith Cells Ur Renal Epithelial Cell Urine Bacteria Coronavirus (PCR) Cancelled COVID-19 (ADRIANA) Negative COVID-19 Clin Com See Note Influenza Type A (PCR) Cancelled Influenza Type B (PCR) Cancelled RSV RNA Qual (PCR) Cancelled Blood Type Antibody Screen Crossmatch 03/08/20 03/08/20 03/08/20 13:07 14:04 14:31 MCV MCH MCHC RDW Plt Count MPV Immature Gran % (Auto) Neut % (Auto) Lymph % (Auto) [place] % (Auto) Eos % (Auto) Baso % (Auto) Lymph # (Auto) [place] # (Auto) Eos # (Auto) Baso # (Auto) Abs Immat Gran (auto) Absolute Neuts (auto) Absolute Nucleated RBC Nucleated RBC % (auto) PT INR APTT Anion Gap Estim Creat Clear Calc Estimated GFR POC Glucose 59 L* 82 Random Glucose Lactic Acid Calcium Magnesium Total Bilirubin Direct Bilirubin AST ALT Alkaline Phosphatase Total Creatine Kinase Troponin I High Sens B-Natriuretic Peptide Total Protein Albumin Lipase Urine Color Urine Appearance Urine pH Ur Specific [place] Urine Protein Urine Glucose (UA) Urine Ketones Urine Blood Urine Nitrite Ur Leukocyte Esterase Urine RBC Urine WBC Ur Squamous Epith Cells Ur Renal Epithelial Cell Urine Bacteria Coronavirus (PCR) COVID-19 (ADRIANA) COVID-19 Clin Com Influenza Type A (PCR) Influenza Type B (PCR) RSV RNA Qual (PCR) Blood Type O Positive Antibody Screen NEGATIVE Crossmatch See Detail 03/08/20 15:48 MCV MCH MCHC RDW Plt Count MPV Immature Gran % (Auto) Neut % (Auto) Lymph % (Auto) [place] % (Auto) Eos % (Auto) Baso % (Auto) Lymph # (Auto) [place] # (Auto) Eos # (Auto) Baso # (Auto) Abs Immat Gran (auto) Absolute Neuts (auto) Absolute Nucleated RBC Nucleated RBC % (auto) PT INR APTT Anion Gap Estim Creat Clear Calc Estimated GFR POC Glucose 100 Random Glucose Lactic Acid Calcium Magnesium Total Bilirubin Direct Bilirubin AST ALT Alkaline Phosphatase Total Creatine Kinase Troponin I High Sens B-Natriuretic Peptide Total Protein Albumin Lipase Urine Color Urine Appearance Urine pH Ur Specific [place] Urine Protein Urine Glucose (UA) Urine Ketones Urine Blood Urine Nitrite Ur Leukocyte Esterase Urine RBC Urine WBC Ur Squamous Epith Cells Ur Renal Epithelial Cell Urine Bacteria Coronavirus (PCR) COVID-19 (ADRIANA) COVID-19 Clin Com Influenza Type A (PCR) Influenza Type B (PCR) RSV RNA Qual (PCR) Blood Type Antibody Screen Crossmatch <DIANA Kennedy - Last Filed: 03/08/20 16:24> Imaging Radiologist's Impressions: Impressions Cervical Spine CT 03/08/20 11:19 IMPRESSION: * No hemorrhage or other acute intracranial pathology. * Chronic small vessel ischemic changes of supratentorial white matter and old lacunar infarcts. 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 * No fracture or malalignment in the mildly degenerated cervical spine. Chest X-Ray 03/08/20 11:19 IMPRESSION: No acute pulmonary disease. Head CT 03/08/20 11:19 IMPRESSION: * No hemorrhage or other acute intracranial pathology. * Chronic small vessel ischemic changes of supratentorial white matter and old lacunar infarcts. 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 * No fracture or malalignment in the mildly degenerated cervical spine. <DIANA Kennedy - Last Filed: 03/08/20 16:24> Assessment and Plan (1) Hypoglycemia: Status: Acute <DIANA Kennedy - Last Filed: 03/08/20 16:24> (2) Altered mental status: Status: Acute <DIANA Kennedy - Last Filed: 03/08/20 16:24> (3) Acute UTI: Status: Acute <DIANA Kennedy - Last Filed: 03/08/20 16:24> (4) CKD (chronic kidney disease) stage 4, GFR 15-29 ml/min: Status: Chronic <DIANA Kennedy - Last Filed: 03/08/20 16:24> This is a 79-year-old female with history of CKD 4, diabetes, CAD, hypertension, dyslipidemia, gastritis, atrial fibrillation not on anticoagulation brought to the emergency department for altered mental status found to have hypoglycemia Metabolic encephalopathy Likely secondary to hypoglycemia on arrival Now in A & 0 x 3 Diabetes with hypoglycemia ? r/t to ckd and decreased PO intake Continue D5 -POC q1h x2 hours as long as remains stable, then can change to quidac -hold home medications Anemia Likely related to CKD -1 unit blood ordered in ED -check stool occult, d/c asa if + -follow CBC -continue iron supplementation sepsis Meets criteria with hypothermia, elevated respiratory rate Possibly related to UTI. Alternatively hypothermia is secondary to hypoglycemia Lactic acid within normal limits Sepsis focused exam completed -follow-up urine cultures, blood cultures -continue empiric antibiotics for UTI UTI Patient asymptomatic, continue antibiotics until urine cultures return CKD Creatinine at baseline Outpatient follow-up with Nephrology Hypertension Continue doxazosin, hydralazine, isosorbide, carvedilol HLD Continue statin Hypothyroidism Continue Synthroid DVT prophylaxis mechanical devices. if stool occult blood negative can switch to heparin Code status-full code This case was discussed with Dr. Good <DIANA Kennedy - Last Filed: 03/08/20 16:24>
--- NOTE | 2020-03-08 16:19 | PM.EVENT ---
Event Note Date of Service: 03/08/20 Event Note: Addendum to H and P by Mid-level Provider I saw and examined the patient and participated in the fernandez portion of the E/M service. I agree with the history and exam as documented by PA. Patient likely has hypoglycemia from taking too much diabetic meds, and anemia from CKD. Will admit and give dextrose and monitor glucose frquently p. Otherwise, I agree with assessment and plan as outlined in the H and P.
[2020-03-08 17:32] LABS: Glucose, Whole Blood 92 mg/dL (60-115)
[2020-03-08] MEDS: carvediloL 6.25 MG TABLET PO (22:26)
[2020-03-08] MEDS: cefTRIAXone sodium 1 GM in 0.9 % Sodium Chloride 50 ML IV (22:26)
[2020-03-08] MEDS: Atorvastatin Calcium 80 MG TABLET PO (22:26)
[2020-03-08] MEDS: Omeprazole 20 MG CAPSULE.DR PO (22:26)
[2020-03-08] MEDS: 0.9 % Sodium Chloride Flush 3 ML SYRINGE IVFLUSH ×2 (22:30→22:38)
[2020-03-08] MEDS: hydrALAZINE HCl 50 MG TABLET 100 MG PO (22:30)
[2020-03-08 22:44] LABS: Glucose, Whole Blood 137 mg/dL (60-115)
[2020-03-09] VITALS (12 sets, daily range): BP systolic 136–179; BP diastolic 47–72; PULSE 57–66; RESP 16–20; TEMP 36.1–37; O2SAT 97–100; BMI 37.0
[2020-03-09] MEDS: Dextrose 5 % 1,000 ML 125 ML IVCONT ×2 (00:48→08:58)
[2020-03-09 03:50] LABS: Glucose, Whole Blood 154 mg/dL (60-115)
[2020-03-09] MEDS: Levothyroxine Sodium 50 MCG TABLET PO (05:16)
[2020-03-09 06:25] LABS: MANUAL DIFF FLAG NO
[2020-03-09 06:33] LABS: Basophils Percent Auto 0.4 % (0-2); Eosinophils Absolute Auto 0.2 X10*3/uL (0.0-0.4); Hematocrit 23.3 % (37-47); Hemoglobin 7.4 g/dl (12.0-16.0); Imm Gran Abs Auto 0.06 X10*3/uL (0.00-0.03); Imm Gran Pct Auto 1.1 % (0.0-0.4); Lymphocytes Absolute Auto 1.4 X10*3/uL (1.2-4.9); Lymphocytes Percent Auto 25.1 % (20-40); Mean Corpuscular HGB Conc 31.8 g/dl (31.0-35.0); Mean Corpuscular Hemoglobin 27.5 pg (27.0-33.0); Mean Corpuscular Volume 86.6 fL (80-98); Monocytes Absolute Auto 0.6 X10*3/uL (0.1-1.2); Monocytes Percent Auto 10.9 % (2-11); Neutrophils Absolute Auto 3.2 X10*3/uL (2.0-8.3); Neutrophils Percent Auto 59.5 % (45-73); Platelet Count 227 X10*3/uL (160-400); Red Blood Count 2.69 X10*6/uL (4.20-5.50); Red Cell Distribution Width 18.5 % (11.0-16.0); White Blood Count 5.4 X10*3/uL (4.8-10.8)
[2020-03-09 07:25] LABS: Anion Gap 13 (12-20); Blood Urea Nitrogen 22 mg/dL (9-16); Calcium 7.1 mg/dL (8.4-10.2); Carbon Dioxide 23 mmol/L (22-29); Chloride 104 mmol/L (96-108); Creatinine Clr Calc Pharmacy 21.4; Estimated Glomerular Filt Rate 23; Glucose Random 143 mg/dL (60-115); Potassium 4.5 mmol/l (3.3-5.1); Sodium 135 mmol/L (135-145)
[2020-03-09 08:06] LABS: Glucose, Whole Blood 57 mg/dL (60-115)
[2020-03-09 08:12] LABS: Glucose, Whole Blood 119 mg/dL (60-115)
[2020-03-09] MEDS: Doxazosin Mesylate 2 MG TABLET 12 MG PO (08:59)
[2020-03-09] MEDS: Isosorbide Mononitrate 60 MG TAB.ER.24H 120 MG PO (08:59)
[2020-03-09] MEDS: carvediloL 6.25 MG TABLET PO ×2 (09:00→21:02)
[2020-03-09] MEDS: Omeprazole 20 MG CAPSULE.DR PO ×2 (09:00→21:03)
[2020-03-09] MEDS: hydrALAZINE HCl 50 MG TABLET 100 MG PO ×2 (09:00→21:02)
[2020-03-09] MEDS: Cholecalciferol (Vitamin D3) 25 MCG TABLET 50 MCG PO (09:00)
[2020-03-09] MEDS: Aspirin 81 MG TAB.CHEW PO (09:01)
[2020-03-09] MEDS: Ferrous Sulfate 324 MG TABLET.DR PO ×2 (09:01→21:02)
[2020-03-09] MEDS: amLODIPine Besylate 10 MG TABLET PO (09:01)
[2020-03-09 11:38] LABS: Glucose, Whole Blood 173 mg/dL (60-115)
--- NOTE | 2020-03-09 12:05 | MHC.CM.PN ---
CM met with patient at the bedside who reports she is independent, amb with a walker and lives with her spouse/HCP Godfrey [phone]. Patient does have a HCP and a copy is on file. Discussed discharge plan, home with resumption of services from [facility]. Referral made via allscripts. CM will continue to follow patient for discharge needs.
--- NOTE | 2020-03-09 15:24 | P.PNIM_ITS ---
Subjective Subjective Date of Service: 03/10/20 Interval History: Seen in f/u for symptomatic hypoglycemia, anemia and generiized weakness. Still feels weak and trouble getting out of bed. Sugar level has improved and is off IVF with glucose iin it. ROS: no fever gen weakness no sob, no chest no focal weakness Physical Exam Vital Signs: Vital Signs: Last Vital Signs Temp 96.9 F 03/09/20 12:00 Pulse 62 03/09/20 14:19 Resp 20 03/09/20 12:00 BP 149/47 H 03/09/20 14:19 Pulse Ox 98 03/09/20 14:19 Body Mass Index 37.0 General: AO X 3, no acute distress Resp: CTA bilateral CVS: S1,S2,RRR GI: +BS, NT, no distention Skin: No rash Neuro: motor grossly intact Psych: appropriate affect Objective Data Current Medications Generic Name Dose Route Start Last Admin Trade Name Freq PRN Reason Stop Dose Admin Acetaminophen 650 mg 03/08/20 21:16 Acetaminophen 325 Mg Tablet PO Q6H PRN Pain, Mild (Pain Scale 1-3) Amlodipine Besylate 10 mg 03/09/20 09:00 03/09/20 09:01 Amlodipine Besylate 10 Mg Tablet PO 10 mg DAILY MORIAH Administration Protocol Aspirin 81 mg 03/09/20 09:00 03/09/20 09:01 Aspirin 81 Mg Tab.Chew PO 81 mg DAILY MORIAH Administration Atorvastatin Calcium 80 mg 03/08/20 21:16 03/08/20 22:26 Atorvastatin Calcium 80 Mg Tablet PO 80 mg BEDTIME MORIAH Administration Carvedilol 6.25 mg 03/08/20 21:16 03/09/20 09:00 Carvedilol 6.25 Mg Tablet PO 6.25 mg BID MORIAH Administration Protocol Docusate Sodium 100 mg 03/08/20 21:16 Docusate Sodium 100 Mg Capsule PO DAILY PRN Constipation Doxazosin Mesylate 12 mg 03/09/20 09:00 03/09/20 08:59 Doxazosin Mesylate 2 Mg Tablet PO 12 mg DAILY MORIAH Administration Protocol Ferrous Sulfate 324 mg 03/09/20 09:00 03/09/20 09:01 Ferrous Sulfate 324 Mg Tablet.Dr PO 324 mg BID MORIAH Administration Hydralazine HCl 100 mg 03/08/20 21:45 03/09/20 09:00 Hydralazine Hcl 50 Mg Tablet PO 100 mg BID [facility] Administration Ceftriaxone Sodium 1 gm/ 50 mls @ 100 mls/hr 03/08/20 22:00 03/09/20 00:10 Sodium Chloride IV Infused Q24H MORIAH Infusion Isosorbide Mononitrate 120 mg 03/09/20 09:00 03/09/20 08:59 Isosorbide Mononitrate 60 Mg Tab.Er.24h PO 120 mg DAILY MORIAH Administration Levothyroxine Sodium 50 mcg 03/09/20 06:00 03/09/20 05:16 Levothyroxine Sodium 50 Mcg Tablet PO 50 mcg DAILY@0600 [facility] Administration Omeprazole 20 mg 03/08/20 21:16 03/09/20 09:00 Omeprazole 20 Mg Capsule.Dr PO 20 mg BID [facility] Administration Ondansetron HCl 4 mg 03/08/20 21:16 Ondansetron Hcl 4 Mg/2 Ml Vial IVPUSH Q8H PRN Nausea and Vomiting Pharmacy Consult 1 each 03/08/20 11:19 Consult Rx Perform Med Rec MISCELLANE ONCE PRN Consult order Pharmacy Consult 1 each 03/08/20 15:45 Consult Rx Perform Med Rec MISCELLANE ONCE PRN Consult order Polyethylene Glycol 17 gm 03/08/20 21:31 Polyethylene Glycol 3350 17 Gm Powd.Pack PO DAILY PRN constipation Sodium Chloride 3 ml 03/08/20 21:16 03/09/20 09:01 0.9 % Sodium Chloride Flush 3 Ml Syringe IVFLUSH Not Given QSHIFT [facility] Vitamin D 50 mcg 03/09/20 09:00 03/09/20 09:00 Cholecalciferol (Vitamin D3) 25 Mcg Tablet PO 50 mcg DAILY MORIAH Administration Labs CBC & Chem 7: 03/09/20 05:32 03/09/20 05:32 Microbiology Microbiology Results: Microbiology 03/08/20 11:56 Blood - Venous Blood Culture - Preliminary No growth after 24 hours. 03/08/20 11:56 Blood - Venous Blood Culture - Preliminary No growth after 24 hours. 03/08/20 11:39 Urine clean catch - Clean Catch Midstream Urine Culture - Preliminary Gram negative tila Assessment and Plan (1) Hypoglycemia: Status: Acute (2) Altered mental status: Status: Acute (3) Acute UTI: Status: Acute (4) CKD (chronic kidney disease) stage 4, GFR 15-29 ml/min: Status: Chronic Assessment and Plan: 79-year-old female with history of CKD 4, diabetes, CAD, hypertension, dyslipidemia, gastritis, atrial fibrillation not on anticoagulation brought to the emergency department for altered mental status found to have hypoglycemia Metabolic encephalopathy Likely secondary to hypoglycemia and UTI Now in A & 0 x 3 Diabetes with hypoglycemia r/t to ckd and decreased PO intake, DC d5 -Hold Tresiba and Trajenta, and Pre-meal. Add SSI Anemia Likely related to CKD -1 unit blood ordered in ED -check stool occult, d/c asa if + -follow CBC -continue iron supplementation sepsis Meets criteria with hypothermia, elevated respiratory rate Possibly related to UTI. Alternatively hypothermia is secondary to hypoglycemia Lactic acid within normal limits Sepsis focused exam completed -follow-up urine cultures, blood cultures -continue empiric antibiotics for UTI UTI Patient asymptomatic, continue antibiotics until urine cultures return CKD Creatinine at baseline Outpatient follow-up with Nephrology Hypertension Continue doxazosin, hydralazine, isosorbide, carvedilol HLD Continue statin Hypothyroidism Continue Synthroid Anemia of chronic disease--Crit at 23, probably contributing to weakness, transfuse 1 unit. Should be considered for outpatient epogen PT eval has since she appears to weak. DVT prophylaxis mechanical devices. if stool occult blood negative can switch to heparin Code status-full code
[2020-03-09 16:26] LABS: Glucose, Whole Blood 111 mg/dL (60-115)
[2020-03-09] MEDS: 0.9 % Sodium Chloride Flush 3 ML SYRINGE IVFLUSH (19:05)
[2020-03-09] MEDS: Atorvastatin Calcium 80 MG TABLET PO (21:02)
[2020-03-09 21:55] LABS: Glucose, Whole Blood 118 mg/dL (60-115)
[2020-03-09] MEDS: cefTRIAXone sodium 1 GM in 0.9 % Sodium Chloride 50 ML IV (22:40)
[2020-03-10] VITALS (10 sets, daily range): BP systolic 123–179; BP diastolic 44–73; PULSE 55–80; RESP 18–20; TEMP 36.2–37.1; O2SAT 97–100
[2020-03-10] MEDS: 0.9 % Sodium Chloride Flush 3 ML SYRINGE IVFLUSH ×3 (00:40→17:37)
[2020-03-10] MEDS: Levothyroxine Sodium 50 MCG TABLET PO (06:33)
[2020-03-10 08:15] LABS: Glucose, Whole Blood 76 mg/dL (60-115)
--- NOTE | 2020-03-10 08:54 | HO.PM.IMPN ---
Subjective Subjective Date of Service: 03/10/20 Interval History: Seen in f/u for symptomatic hypoglycemia, anemia and generiized weakness. Still feels weak and trouble getting out of bed. Fasting sugar this morning is 76 which is concerning as she has not taken any insulin or other meds the last 24 hours ROS: no fever gen weakness no sob, no chest no focal weakness Physical Exam Vital Signs: Vital Signs: Last Vital Signs Temp 97.1 F 03/10/20 07:56 Pulse 56 03/10/20 07:56 Resp 20 03/10/20 07:56 BP 161/61 H 03/10/20 07:56 Pulse Ox 98 03/10/20 07:56 Body Mass Index 37.0 General: AO X 3, no acute distress Resp: CTA bilateral CVS: S1,S2,RRR GI: +BS, NT, no distention Skin: No rash Neuro: motor grossly intact Psych: appropriate affect Objective Data Current Medications Generic Name Dose Route Start Last Admin Trade Name Freq PRN Reason Stop Dose Admin Acetaminophen 650 mg 03/08/20 21:16 Acetaminophen 325 Mg Tablet PO Q6H PRN Pain, Mild (Pain Scale 1-3) Amlodipine Besylate 10 mg 03/09/20 09:00 03/09/20 09:01 Amlodipine Besylate 10 Mg Tablet PO 10 mg DAILY MORIAH Administration Protocol Aspirin 81 mg 03/09/20 09:00 03/09/20 09:01 Aspirin 81 Mg Tab.Chew PO 81 mg DAILY MORIAH Administration Atorvastatin Calcium 80 mg 03/08/20 21:16 03/09/20 21:02 Atorvastatin Calcium 80 Mg Tablet PO 80 mg BEDTIME M[facility]IAH Administration Carvedilol 6.25 mg 03/08/20 21:16 03/09/20 21:02 Carvedilol 6.25 Mg Tablet PO 6.25 mg BID MORIAH Administration Protocol Docusate Sodium 100 mg 03/08/20 21:16 Docusate Sodium 100 Mg Capsule PO DAILY PRN Constipation Doxazosin Mesylate 12 mg 03/09/20 09:00 03/09/20 08:59 Doxazosin Mesylate 2 Mg Tablet PO 12 mg DAILY MORIAH Administration Protocol Ferrous Sulfate 324 mg 03/09/20 09:00 03/09/20 21:02 Ferrous Sulfate 324 Mg Tablet.Dr PO 324 mg BID MORIAH Administration Hydralazine HCl 100 mg 03/08/20 21:45 03/09/20 21:02 Hydralazine Hcl 50 Mg Tablet PO 100 mg BID [facility] Administration Ceftriaxone Sodium 1 gm/ 50 mls @ 100 mls/hr 03/08/20 22:00 03/09/20 23:24 Sodium Chloride IV Infused Q24H [facility] Infusion Isosorbide Mononitrate 120 mg 03/09/20 09:00 03/09/20 08:59 Isosorbide Mononitrate 60 Mg Tab.Er.24h PO 120 mg DAILY MORIA[facility] Administration Levothyroxine Sodium 50 mcg 03/09/20 06:00 03/10/20 06:33 Levothyroxine Sodium 50 Mcg Tablet PO 50 mcg DAILY@0600 [facility] Administration Omeprazole 20 mg 03/08/20 21:16 03/09/20 21:03 Omeprazole 20 Mg Capsule.Dr PO 20 mg BID [facility] Administration Ondansetron HCl 4 mg 03/08/20 21:16 Ondansetron Hcl 4 Mg/2 Ml Vial IVPUSH Q8H PRN Nausea and Vomiting Pharmacy Consult 1 each 03/08/20 11:19 Consult Rx Perform Med Rec MISCELLANE ONCE PRN Consult order Pharmacy Consult 1 each 03/08/20 15:45 Consult Rx Perform Med Rec MISCELLANE ONCE PRN Consult order Polyethylene Glycol 17 gm 03/08/20 21:31 Polyethylene Glycol 3350 17 Gm Powd.Pack PO DAILY PRN constipation Sodium Chloride 3 ml 03/08/20 21:16 03/10/20 00:40 0.9 % Sodium Chloride Flush 3 Ml Syringe IVFLUSH 3 ml QSHIFT [facility] Administration Vitamin D 50 mcg 03/09/20 09:00 03/09/20 09:00 Cholecalciferol (Vitamin D3) 25 Mcg Tablet PO 50 mcg DAILY MORIA[facility] Administration Labs CBC & Chem 7: 03/09/20 05:32 03/09/20 05:32 Microbiology Microbiology Results: Microbiology 03/08/20 11:39 Urine clean catch - Clean Catch Midstream Urine Culture - Final Enterobacter aerogenes 03/08/20 11:56 Blood - Venous Blood Culture - Preliminary No growth after 24 hours. 03/08/20 11:56 Blood - Venous Blood Culture - Preliminary No growth after 24 hours. Assessment and Plan (1) Hypoglycemia: Status: Acute (2) Altered mental status: Status: Acute (3) Acute UTI: Status: Acute (4) CKD (chronic kidney disease) stage 4, GFR 15-29 ml/min: Status: Chronic Assessment and Plan: 79-year-old female with history of CKD 4, diabetes, CAD, hypertension, dyslipidemia, gastritis, atrial fibrillation not on anticoagulation brought to the emergency department for altered mental status found to have hypoglycemia Metabolic encephalopathy due to hypoglycemia and UTI, this has resolved. Diabetes with hypoglycemia on Tresiba, Trajenta and Pre-meal insulin at home. Her PO intake had decreased prior to coming in. She recevined D5 overnight and d/c'd on 03/09, she received no insulin or other glycemic agents the last 48 hours and yet Fasting sugar was only 76 this morning. At this point shoud avod Trajent, Tresiba and other insulin. Closely monitor glucose, once glucse start going up add SSI. Weather Trajecta or Tresiba should be restarted will depend on sugar level at dc, although I will hesitate to restart these agents. She is unsafe to discharge with these agents at this time. Anemia of chronic disease due to CKD, transfused 2 units, Nephrology to consider Epo on outpatient basis UTI/Sepsis, sepsis resolved. urine culture is growing Enterobacter aorognes--sensitive to Ceftriaxone D3 now, change to PO ceftin at discharge x 10 days CKD Creatinine at baseline Outpatient follow-up with Nephrology Hypertension Continue doxazosin, hydralazine, isosorbide, carvedilol HLD Continue statin Hypothyroidism Continue Synthroid CT short-term rehab. DVT prophylaxis heparin
[2020-03-10] MEDS: Doxazosin Mesylate 2 MG TABLET 12 MG PO (09:13)
[2020-03-10] MEDS: Aspirin 81 MG TAB.CHEW PO (09:13)
[2020-03-10] MEDS: amLODIPine Besylate 10 MG TABLET PO (09:14)
[2020-03-10] MEDS: Omeprazole 20 MG CAPSULE.DR PO ×2 (09:14→22:09)
[2020-03-10] MEDS: Isosorbide Mononitrate 60 MG TAB.ER.24H 120 MG PO (09:14)
[2020-03-10] MEDS: Ferrous Sulfate 324 MG TABLET.DR PO ×2 (09:14→22:09)
[2020-03-10] MEDS: carvediloL 6.25 MG TABLET PO ×2 (09:14→22:09)
[2020-03-10] MEDS: hydrALAZINE HCl 50 MG TABLET 100 MG PO ×2 (09:14→22:08)
[2020-03-10] MEDS: Cholecalciferol (Vitamin D3) 25 MCG TABLET 50 MCG PO (09:14)
[2020-03-10 09:32] LABS: Hematocrit 28.9 % (37-47); Hemoglobin 9.5 g/dl (12.0-16.0); Mean Corpuscular HGB Conc 32.9 g/dl (31.0-35.0); Mean Corpuscular Hemoglobin 28.1 pg (27.0-33.0); Mean Corpuscular Volume 85.5 fL (80-98); Mean Platelet Volume 9.8 fL (9.4-12.3); Platelet Count 225 X10*3/uL (160-400); Red Blood Count 3.38 X10*6/uL (4.20-5.50); Red Cell Distribution Width 17.5 % (11.0-16.0); White Blood Count 4.4 X10*3/uL (4.8-10.8)
[2020-03-10 11:51] LABS: Glucose, Whole Blood 104 mg/dL (60-115)
[2020-03-10 17:14] LABS: Glucose, Whole Blood 120 mg/dL (60-115)
[2020-03-10 21:02] LABS: Glucose, Whole Blood 148 mg/dL (60-115)
[2020-03-10] MEDS: cefTRIAXone sodium 1 GM in 0.9 % Sodium Chloride 50 ML IV (22:08)
[2020-03-10] MEDS: Atorvastatin Calcium 80 MG TABLET PO (22:09)
[2020-03-11] VITALS (7 sets, daily range): BP systolic 148–196; BP diastolic 67–77; PULSE 56–65; RESP 18–20; TEMP 36.4–37.1; O2SAT 96–98
[2020-03-11] MEDS: 0.9 % Sodium Chloride Flush 3 ML SYRINGE IVFLUSH ×4 (00:10→21:34)
[2020-03-11] MEDS: Levothyroxine Sodium 50 MCG TABLET PO (05:26)
[2020-03-11 07:37] LABS: Glucose, Whole Blood 103 mg/dL (60-115)
--- NOTE | 2020-03-11 09:20 | P.PNIM_ITS ---
Subjective Subjective Date of Service: 03/11/20 Interval History: Seen in f/u for symptomatic hypoglycemia, anemia and generiized weakness. Still feels weak and trouble getting out of bed. Fasting sugar this morning is 76 which is concerning as she has not taken any insulin or other meds the last 24 hours ROS: no fever gen weakness no sob, no chest no focal weakness Physical Exam Vital Signs: Vital Signs: Last Vital Signs Temp 98.7 F 03/11/20 07:58 Pulse 56 03/11/20 07:58 Resp 20 03/11/20 07:58 BP 196/76 H 03/11/20 07:58 Pulse Ox 96 03/11/20 07:58 Body Mass Index 37.0 General: AO X 3, no acute distress Resp: CTA bilateral CVS: S1,S2,RRR GI: +BS, NT, no distention Skin: No rash Neuro: motor grossly intact Psych: appropriate affect Objective Data Current Medications Generic Name Dose Route Start Last Admin Trade Name Freq PRN Reason Stop Dose Admin Acetaminophen 650 mg 03/08/20 21:16 Acetaminophen 325 Mg Tablet PO Q6H PRN Pain, Mild (Pain Scale 1-3) Amlodipine Besylate 10 mg 03/09/20 09:00 03/10/20 09:14 Amlodipine Besylate 10 Mg Tablet PO 10 mg DAILY [facility] Administration Protocol Aspirin 81 mg 03/09/20 09:00 03/10/20 09:13 Aspirin 81 Mg Tab.Chew PO 81 mg DAILY [facility] Administration Atorvastatin Calcium 80 mg 03/08/20 21:16 03/10/20 22:09 Atorvastatin Calcium 80 Mg Tablet PO 80 mg BEDTIME [facility] Administration Carvedilol 6.25 mg 03/08/20 21:16 03/10/20 22:09 Carvedilol 6.25 Mg Tablet PO 6.25 mg BID [facility]IA[facility] Administration Protocol Docusate Sodium 100 mg 03/08/20 21:16 Docusate Sodium 100 Mg Capsule PO DAILY PRN Constipation Doxazosin Mesylate 12 mg 03/09/20 09:00 03/10/20 09:13 Doxazosin Mesylate 2 Mg Tablet PO 12 mg DAILY MORIAH Administration Protocol Ferrous Sulfate 324 mg 03/09/20 09:00 03/10/20 22:09 Ferrous Sulfate 324 Mg Tablet.Dr PO 324 mg BID [facility] Administration Hydralazine HCl 100 mg 03/08/20 21:45 03/10/20 22:08 Hydralazine Hcl 50 Mg Tablet PO 100 mg BID [facility] Administration Ceftriaxone Sodium 1 gm/ 50 mls @ 100 mls/hr 03/08/20 22:00 03/10/20 22:42 Sodium Chloride IV Infused Q24H [facility] Infusion Isosorbide Mononitrate 120 mg 03/09/20 09:00 03/10/20 09:14 Isosorbide Mononitrate 60 Mg Tab.Er.24h PO 120 mg DAILY [facility] Administration Levothyroxine Sodium 50 mcg 03/09/20 06:00 03/11/20 05:26 Levothyroxine Sodium 50 Mcg Tablet PO 50 mcg DAILY@0600 [facility] Administration Omeprazole 20 mg 03/08/20 21:16 03/10/20 22:09 Omeprazole 20 Mg Capsule.Dr PO 20 mg BID [facility] Administration Ondansetron HCl 4 mg 03/08/20 21:16 Ondansetron Hcl 4 Mg/2 Ml Vial IVPUSH Q8H PRN Nausea and Vomiting Pharmacy Consult 1 each 03/08/20 11:19 Consult Rx Perform Med Rec MISCELLANE ONCE PRN Consult order Pharmacy Consult 1 each 03/08/20 15:45 Consult Rx Perform Med Rec MISCELLANE ONCE PRN Consult order Polyethylene Glycol 17 gm 03/08/20 21:31 Polyethylene Glycol 3350 17 Gm Powd.Pack PO DAILY PRN constipation Sodium Chloride 3 ml 03/08/20 21:16 03/11/20 00:10 0.9 % Sodium Chloride Flush 3 Ml Syringe IVFLUSH 3 ml QSHIFT [facility] Administration Vitamin D 50 mcg 03/09/20 09:00 03/10/20 09:14 Cholecalciferol (Vitamin D3) 25 Mcg Tablet PO 50 mcg DAILY [facility]IA[facility] Administration Labs CBC & Chem 7: 03/10/20 09:21 03/09/20 05:32 Microbiology Microbiology Results: Microbiology 03/08/20 11:56 Blood - Venous Blood Culture - Preliminary No growth after 48 hours. 03/08/20 11:56 Blood - Venous Blood Culture - Preliminary No growth after 48 hours. 03/08/20 11:39 Urine clean catch - Clean Catch Midstream Urine Culture - Final Enterobacter aerogenes Assessment and Plan (1) Hypoglycemia: Status: Acute (2) Altered mental status: Status: Acute (3) Acute UTI: Status: Acute (4) CKD (chronic kidney disease) stage 4, GFR 15-29 ml/min: Status: Chronic Assessment and Plan: 79-year-old female with history of CKD 4, diabetes, CAD, hypertension, dyslipidemia, gastritis, atrial fibrillation not on anticoagulation brought to the emergency department for altered mental status found to have hypoglycemia Metabolic encephalopathy due to hypoglycemia and UTI, this has resolved. Diabetes with hypoglycemia on Tresiba, Trajenta and Pre-meal insulin at home. H er PO intake had decreased prior to coming in. She recevined D5 overnight and d/c'd on 03/09, she received no insulin or other glycemic agents the last 48 hours and yet Fasting sugar was only 103 this morning. At this point shoud avod Trajent, Tresiba and other insulin. Closely monitor glucose, once glucse start going up add SSI. Weather Trajecta or Tresiba should be restarted will depend on sugar level at dc, although I will hesitate to restart these agenta especially Tresiba, can consider doing Trajent alone. She is unsafe to discharge at this point, I wouldn't know what to put her on. check A1C Anemia of chronic disease due to CKD, transfused 2 units, H/H is better, Nephrology to consider Epo on outpatient basis UTI/Sepsis, sepsis resolved. urine culture is growing Enterobacter a orognes--sensitive to Ceftriaxone D3 now, change to PO ceftin at discharge x 10 days CKD Creatinine at baseline Outpatient follow-up with Nephrology Hypertension Continue doxazosin, hydralazine, isosorbide, carvedilol HLD Continue statin Hypothyroidism Continue Synthroid CT short-term rehab. DVT prophylaxis heparin
[2020-03-11] MEDS: Cholecalciferol (Vitamin D3) 25 MCG TABLET 50 MCG PO (10:00)
[2020-03-11] MEDS: hydrALAZINE HCl 50 MG TABLET 100 MG PO ×2 (10:00→21:30)
[2020-03-11] MEDS: Omeprazole 20 MG CAPSULE.DR PO ×2 (10:00→21:32)
[2020-03-11] MEDS: amLODIPine Besylate 10 MG TABLET PO (10:00)
[2020-03-11] MEDS: Isosorbide Mononitrate 60 MG TAB.ER.24H 120 MG PO (10:01)
[2020-03-11] MEDS: carvediloL 6.25 MG TABLET PO ×2 (10:01→21:31)
[2020-03-11] MEDS: Ferrous Sulfate 324 MG TABLET.DR PO ×2 (10:01→21:31)
[2020-03-11] MEDS: Aspirin 81 MG TAB.CHEW PO (10:04)
[2020-03-11] MEDS: Doxazosin Mesylate 2 MG TABLET 12 MG PO (10:04)
[2020-03-11 11:29] LABS: Glucose, Whole Blood 189 mg/dL (60-115)
[2020-03-11 16:59] LABS: Glucose, Whole Blood 115 mg/dL (60-115)
[2020-03-11 21:00] LABS: Glucose, Whole Blood 165 mg/dL (60-115)
[2020-03-11] MEDS: cefTRIAXone sodium 1 GM in 0.9 % Sodium Chloride 50 ML IV (21:28)
[2020-03-11] MEDS: Atorvastatin Calcium 80 MG TABLET PO (21:32)
[2020-03-12] VITALS: BP 153/69; PULSE 58; RESP 20; TEMP 36.7; O2SAT 97
[2020-03-12 03:36] LABS: Estimated Average Glucose 97 mg/dL
[2020-03-12 04:00] VITALS: BP 164/66; PULSE 61; RESP 20; TEMP 36.6; O2SAT 97
[2020-03-12] MEDS: Levothyroxine Sodium 50 MCG TABLET PO (05:24)
[2020-03-12 08:00] VITALS: BP 166/72; PULSE 60; RESP 20; TEMP 36.7; O2SAT 99
[2020-03-12 10:05] LABS: Glucose, Whole Blood 163 mg/dL (60-115)
[2020-03-12 10:40] VITALS: BP 166/72; PULSE 60; O2SAT 99
[2020-03-12] MEDS: carvediloL 6.25 MG TABLET PO (10:43)
[2020-03-12] MEDS: Aspirin 81 MG TAB.CHEW PO (10:46)
[2020-03-12] MEDS: hydrALAZINE HCl 50 MG TABLET 100 MG PO (10:46)
[2020-03-12] MEDS: Omeprazole 20 MG CAPSULE.DR PO (10:46)
[2020-03-12] MEDS: Isosorbide Mononitrate 60 MG TAB.ER.24H 120 MG PO (10:47)
[2020-03-12] MEDS: Doxazosin Mesylate 2 MG TABLET 12 MG PO (10:47)
[2020-03-12] MEDS: Cholecalciferol (Vitamin D3) 25 MCG TABLET 50 MCG PO (10:47)
[2020-03-12] MEDS: amLODIPine Besylate 10 MG TABLET PO (10:47)
[2020-03-12] MEDS: Ferrous Sulfate 324 MG TABLET.DR PO (10:47)
[2020-03-12] MEDS: 0.9 % Sodium Chloride Flush 3 ML SYRINGE IVFLUSH (10:48)
[2020-03-12 11:29] LABS: Glucose, Whole Blood 154 mg/dL (60-115)
[2020-03-12 12:00] VITALS: BP 156/69; PULSE 62; RESP 22; TEMP 36.6; O2SAT 98
--- NOTE | 2020-03-12 12:07 | MHC.CM.PN ---
CM met with patient at the bedside re: discharge plan since PT recommending STR. Patient's choice is [facility] and [facility]. Referral made via allscripts. CM will continue to follow patient for discharge needs.
--- NOTE | 2020-03-12 13:38 | PM.DS ---
DS: Providers Provider Date of admission: 03/08/20 15:58 Primary care physician: Unknown Physician DS: Diagnosis Discharge Diagnosis (1) Sepsis: Status: Acute (2) Acute UTI: Status: Acute (3) Hypoglycemia: Status: Acute (4) Altered mental status: Status: Acute (5) CKD (chronic kidney disease) stage 4, GFR 15-29 ml/min: Status: Chronic DS: Medications Discharge Medications Home Medications: Home Medications Medication Instructions Recorded Confirmed blood sugar diagnostic #10 ea 12/24/19 12/29/19 lancets 33 gauge #100 ea 12/24/19 12/29/19 pen needle, diabetic 32 gauge x #50 ea 12/24/19 12/29/19 ferrous gluconate 324 mg PO BID 12/29/19 03/08/20 levothyroxine 50 mcg PO DAILY 12/29/19 03/08/20 polyethylene glycol 3350 17 g PO DAILY PRN 03/08/20 03/08/20 Previous Rx's Medication Instructions Recorded carvedilol 6.25 mg tablet 6.25 mg PO BID #60 tab 02/03/20 cholecalciferol (vitamin D3) 50 50 mcg PO DAILY #30 cap 02/14/20 mcg (2,000 unit) capsule amlodipine 10 mg tablet 10 mg PO DAILY #30 tab 02/20/20 aspirin 81 mg chewable tablet 1 tab PO DAILY #30 tab 02/20/20 atorvastatin 80 mg tablet 80 mg PO BEDTIME #30 tab 02/20/20 doxazosin 4 mg tablet 12 mg PO DAILY #90 tab 02/20/20 hydralazine 100 mg tablet 100 mg PO BID #90 tab 02/20/20 isosorbide mononitrate 120 mg 120 mg PO DAILY #30 tab 02/20/20 tablet,extended release 24 hr omeprazole 20 mg capsule,delayed 20 mg PO BID #60 cap 02/20/20 release cefuroxime axetil 250 mg PO Q12H #14 tab 03/12/20 insulin aspart U-100 [Novolog See Rx Instructions .ROUTE 03/12/20 Flexpen U-100 Insulin] .COMPLEX #0 ml DS: Summary Hospital Course Hospital Course: Patient presented to the hospital confusion which was attributed to hypoglycemia as well as sepsis secondary to urinary tract infection. For her UTI she was started on IV ceftriaxone and this was tailored to oral cefuroxime when her urine cultures resulted positive for aerococcus which was sensitive to ceftriaxone. She will be sent to intermediate facility on 7 more days of p.o. antibiotics. In regards to her hypoglycemia, all her diabetic meds from home were held and her point of cares were monitored carefully. An A1c was checked which showed a value of 5. She will be sent to intermediate facility on NovoLog sliding scale as follows: Less than 110 (units): 0 111 to 150 - units: 0 151 to 200 - units: 0 201 to 250 - units:2 251 to 300 - units:4 301 to 350 - units: 6 350 - units: 8 Her other diabetic meds have been discontinued. She was evaluated by PT who recommended -- STR, which the patient is agreeable and will be transferred to. Conditions were stable in the hospital. Time Spent with Patient Time attestation: Total time spent providing and/or coordinating discharge services: Physical Exam Vital Signs: Vital Signs: Last Vital Signs Temp 97.9 F 03/12/20 12:00 Pulse 62 03/12/20 12:00 Resp 22 H 03/12/20 12:00 BP 156/69 H 03/12/20 12:00 Pulse Ox 98 03/12/20 12:00 Body Mass Index 37.0 Const: Other: General - no acute distress, appears comfortable Cardiovascular - regular rate and rhythm, S1-S2 Lungs - normal respiratory effort, clear to auscultation bilaterally, no wheezing Abdomen - soft, nontender, no rebound or guarding Extremities - no edema bilaterally Neuro - awake and alert, no focal deficits DS: Data Data Completed and Pending Completed studies during hospitalization [Text1]: Procedures Transfusion of Nonautologous Red Blood Cells into Peripheral Vein, Percutaneous Approach (12/29/19) Labs on day of discharge: Laboratory Last Values WBC 4.4 X10*3/uL (4.8-10.8) L 03/10/20 09:21 RBC 3.38 X10*6/uL (4.20-5.50) L D 03/10/20 09:21 Hgb 9.5 g/dl (12.0-16.0) L D 03/10/20 09:21 Hct 28.9 % (37-47) L D 03/10/20 09:21 MCV 85.5 fL (80-98) 03/10/20 09:21 MCH 28.1 pg (27.0-33.0) 03/10/20 09:21 MCHC 32.9 g/dl (31.0-35.0) 03/10/20 09:21 RDW 17.5 % (11.0-16.0) H 03/10/20 09:21 Plt Count 225 X10*3/uL (160-400) 03/10/20 09:21 MPV 9.8 fL (9.4-12.3) 03/10/20 09:21 Immature Gran % (Auto) 1.1 % (0.0-0.4) H 03/09/20 05:32 Neut % (Auto) 59.5 % (45-73) 03/09/20 05:32 Lymph % (Auto) 25.1 % (20-40) 03/09/20 05:32 [place] % (Auto) 10.9 % (2-11) 03/09/20 05:32 Eos % (Auto) 3.0 % (0-4) 03/09/20 05:32 Baso % (Auto) 0.4 % (0-2) 03/09/20 05:32 Lymph # (Auto) 1.4 X10*3/uL (1.2-4.9) 03/09/20 05:32 [place] # (Auto) 0.6 X10*3/uL (0.1-1.2) 03/09/20 05:32 Eos # (Auto) 0.2 X10*3/uL (0.0-0.4) 03/09/20 05:32 Baso # (Auto) 0.0 X10*3/uL (0.0-0.2) 03/09/20 05:32 Abs Immat Gran (auto) 0.06 X10*3/uL (0.00-0.03) H 03/09/20 05:32 Absolute Neuts (auto) 3.2 X10*3/uL (2.0-8.3) 03/09/20 05:32 Absolute Nucleated RBC 0.000 X10*3/uL (0.0-0.012) 03/10/20 09:21 Nucleated RBC % (auto) 0.0 /100WBC (0.0-0.2) 03/10/20 09:21 PT 12.2 SEC (10.8-13.0) 03/08/20 11:55 INR 1.0 (0.9-1.1) 03/08/20 11:55 APTT 42.2 SEC (24.1-38.0) H 03/08/20 11:55 Sodium 135 mmol/L (135-145) 03/09/20 05:32 Potassium 4.5 mmol/l (3.3-5.1) 03/09/20 05:32 Chloride 104 mmol/L (96-108) 03/09/20 05:32 Carbon Dioxide 23 mmol/L (22-29) 03/09/20 05:32 Anion Gap 13 (-20) 03/09/20 05:32 BUN 22 mg/dL (9-16) H 03/09/20 05:32 Creatinine 2.07 mg/dL (0.5-1.4) H 03/09/20 05:32 Estim Creat Clear Calc 21.4 03/09/20 05:32 Estimated GFR 23 03/09/20 05:32 POC Glucose 154 mg/dL (60-115) H 03/12/20 11:09 Random Glucose 143 mg/dL (60-115) H D 03/09/20 05:32 Estimat Average Glucose 97 mg/dL 03/11/20 10:32 Hemoglobin A1c % 5.0 % 03/11/20 10:32 Lactic Acid 1.0 mmol/L (0.5-2.0) 03/08/20 11:55 Calcium 7.1 mg/dL (8.4-10.2) L D 03/09/20 05:32 Magnesium 2.4 mg/dL (1.6-2.6) 03/08/20 11:55 Total Bilirubin 0.2 mg/dL (0.0-1.0) 03/08/20 11:55 Direct Bilirubin 0.2 mg/dL (0.0-0.5) 03/08/20 11:55 AST 22 U/L (5-31) 03/08/20 11:55 ALT 14 U/L (0-31) 03/08/20 11:55 Alkaline Phosphatase 83 U/L (39-117) 03/08/20 11:55 Total Creatine Kinase 63 U/L (26-140) 03/08/20 11:55 Troponin I High Sens Cancelled 03/08/20 11:57 B-Natriuretic Peptide 212 pg/mL (<100) H 03/08/20 11:55 Total Protein 5.3 g/dL (6.5-8.0) L 03/08/20 11:55 Albumin 2.9 g/dL (3.5-5.0) L 03/08/20 11:55 Lipase 92 U/L (8-78) H 03/08/20 11:55 Urine Color YELLOW 03/08/20 11:48 Urine Appearance CLOUDY 03/08/20 11:48 Urine pH 6.0 (5.0-8.0) 03/08/20 11:48 Ur Specific [place] 1.020 (1.005-1.025) 03/08/20 11:48 Urine Protein 3+ MG/DL (NEG-TRACE) H 03/08/20 11:48 Urine Glucose (UA) NEG MG/DL (NEG) 03/08/20 11:48 Urine Ketones NEG MG/DL (NEG) 03/08/20 11:48 Urine Blood NEG (NEG) 03/08/20 11:48 Urine Nitrite NEG (NEG) 03/08/20 11:48 Ur Leukocyte Esterase NEG (NEG) 03/08/20 11:48 Urine RBC 0 /HPF (0) 03/08/20 11:48 Urine WBC 10-14 /HPF (0-4) H 03/08/20 11:48 Ur Squamous Epith Cells TRACE /LPF 03/08/20 11:48 Ur Renal Epithelial Cell TRACE /LPF 03/08/20 11:48 Urine Bacteria 4+ /LPF 03/08/20 11:48 Coronavirus (PCR) Cancelled 03/08/20 11:58 COVID-19 (ADRIANA) Negative (Negative) 03/08/20 12:33 COVID-19 Clin Com See Note 03/08/20 12:33 Influenza Type A (PCR) Cancelled 03/08/20 11:58 Influenza Type B (PCR) Cancelled 03/08/20 11:58 RSV RNA Qual (PCR) Cancelled 03/08/20 11:58 Blood Type O Positive 03/08/20 14:31 Antibody Screen NEGATIVE 03/08/20 14:31 Crossmatch See Detail 03/08/20 14:31 Preliminary micro results at discharge 03/08/20 11:56 Blood Culture - Preliminary Blood - Venous No growth after 48 hours. 03/08/20 11:56 Blood Culture - Preliminary Blood - Venous No growth after 48 hours. Discharge Plan Discharge Patient Disposition: er [facility] Referrals: Physician,Unknown [Primary Care Provider] - Discharge Medications: New cefuroxime axetil 250 mg tablet 250 mg PO Q12H Qty: 14 RF: 0 Continued carvedilol 6.25 mg tablet 6.25 mg PO BID Qty: 60 RF: 5 cholecalciferol (vitamin D3) 50 mcg (2,000 unit) capsule 50 mcg PO DAILY Qty: 30 RF: 11 atorvastatin 80 mg tablet 80 mg PO BEDTIME Qty: 30 RF: 6 doxazosin 4 mg tablet 12 mg PO DAILY Qty: 90 RF: 2 aspirin 81 mg tablet,chewable 1 tab PO DAILY Qty: 30 RF: 5 isosorbide mononitrate 120 mg tablet extended release 24 hr 120 mg PO DAILY Qty: 30 RF: 3 hydralazine 100 mg tablet 100 mg PO BID Qty: 90 RF: 1 omeprazole 20 mg capsule,delayed release(DR/EC) 20 mg PO BID Qty: 60 RF: 5 amlodipine 10 mg tablet 10 mg PO DAILY Qty: 30 RF: 5 polyethylene glycol 3350 17 gram/dose powder 17 g PO DAILY PRN (Reason: constipation) RF: 0 levothyroxine 50 mcg Tablet 50 mcg PO DAILY RF: 0 ferrous gluconate 324 mg (37.5 mg iron) Tablet 324 mg PO BID RF: 0 Changed insulin aspart U-100 [Novolog Flexpen U-100 Insulin] 100 unit/mL (3 mL) Insulin Pen See Rx Instructions .ROUTE .COMPLEX Qty: 0 RF: 0 Discontinued Tradjenta 5 mg tablet 5 mg PO DAILY Qty: 30 RF: 0 Tresiba FlexTouch U-200 200 unit/mL (3 mL) Insulin Pen 46 unit SUBCUT DAILY RF: 0 Discharge Orders: Discharge Order (Routine); Ordered 03/12/20 Ordered By: Gennaro Fuller Diet: advance to usual diet Activity on Discharge: As tolerated Visit Report Forms: Patient Portal Discharge page Care Plan Goals: To stay healthy and out of the hospital. Health Concerns: Hypoglycemia UTI Plan of Treatment: Stop taking Tradjanta and Tresiba. Only take Novolog with sliding scale as follows: Less than 110 (units): 0 111 to 150 - units: 0 151 to 200 - units: 0 201 to 250 - units:2 251 to 300 - units:4 301 to 350 - units: 6 350 - units:8 For UTI -- take cefuroxime 250mg twice daily for 7 more days
--- NOTE | 2020-03-12 14:16 | MHC.CM.PN ---
Patient will be discharged today to [facility] at 4pm via BLS transport. Nurse, patient are both aware.
[2020-03-12 14:55] LABS: COVID-19 Test Negative (Negative)
== END 2020-03-12 16:29 | disposition skilled nursing facility (03) | DRG 871 ==
LOC: HO.ED 13:12 → HO.IMC 17:24
PROVIDERS: Physician Assistant; Physician Assistant Medical; Admitting Provider Internal Medicine; Emergency Provider Emergency Medicine; Visit Provider Family Medicine
DX: A41.9 Sepsis, unspecified organism (principal); G93.41 Metabolic encephalopathy; N18.4 Chronic kidney disease, stage 4 (severe); N39.0 Urinary tract infection, site not specified; K21.9 Gastro-esophageal reflux disease without esophagitis; I48.0 Paroxysmal atrial fibrillation; E11.649 Type 2 diabetes mellitus with hypoglycemia without coma; D63.1 Anemia in chronic kidney disease; E78.5 Hyperlipidemia, unspecified; I12.9 Hypertensive chronic kidney disease with stage 1 through stage 4 chronic kidney disease, or unspecified chronic kidney disease; E11.22 Type 2 diabetes mellitus with diabetic chronic kidney disease; E03.9 Hypothyroidism, unspecified; I25.10 Atherosclerotic heart disease of native coronary artery without angina pectoris; Z87.891 Personal history of nicotine dependence; Z20.828 Contact with and (suspected) exposure to other viral communicable diseases; Z88.5 Allergy status to narcotic agent; Z79.4 Long term (current) use of insulin; Z79.82 Long term (current) use of aspirin; Z79.890 Hormone replacement therapy; Z79.899 Other long term (current) drug therapy
CPT/HCPCS: 36415; 70450; 71045; 72125; 80048; 80076; 81001; 82550; 82947; 83036; 83605; 83690; 83735; 83880; 84484; 85025; 85027; 85610; 85730; 86850; 86900; 86901; 86920; 86923; 87040; 87086; 87088; 87186; 87635; 93005; 94640; 97110; 97116; 97162; 99285; J0692; J0696; P9016

== ENCOUNTER 2020-04-05 15:21 | Inpatient (IN) | payer MEDICARE, OTHER, SELFPAY ==
[2020-04-05] VITALS (7 sets, daily range): BP systolic 134–184; BP diastolic 46–66; PULSE 44–63; RESP 12–16; TEMP 33.4–36.8; O2SAT 97–99; BMI 41.1
--- NOTE | 2020-04-05 15:30 | PC.NURSE ---
PT CONTINUOS ON RESPONDING TO PAINFUL STIMULI ONLY, RECHECKED POC 100, SINUS [place] ON THE MONITOR, PT COLD AND PALE RECTAL TEMP 93.1. PT PUT ON BEAR HUGGER
[2020-04-05 15:46] LABS: Glucose, Whole Blood 100 mg/dL (60-115)
--- NOTE | 2020-04-05 15:55 | PC.NURSE ---
RECHECKED POC 50, PUSHED A AMP OF DEXTROSE 50%
--- NOTE | 2020-04-05 16:05 | ECG_ITS ---
Test Reason : HYPOGLYCEMIA Blood Pressure : / mmHG Vent. Rate : 044 BPM Atrial Rate : 043 BPM P-R Int : 000 ms QRS Dur : 090 ms QT Int : 550 ms P-R-T Axes : 000 006 040 degrees QTc Int : 470 ms Sinus bradycardia Cannot rule out Anterior infarct , age undetermined Abnormal ECG When compared with ECG of 08-MAR-2020 11:32, Vent. rate has decreased BY 24 BPM Referred By: Pillo Alas Electronically Signed By:Davidson Smith
--- NOTE | 2020-04-05 16:05 | XR_ITS ---
EXAMINATION: XR CHEST CLINICAL INFORMATION: Altered mental status COMPARISON: 03/08/2020 TECHNIQUE: Frontal view of the chest was obtained. FINDINGS: Lung volumes are low low, slightly decreased. New ill-defined patchy opacities are seen concerning for multifocal infection. Confluent opacity in the retrocardiac left lung base obscuring the left hemidiaphragm which could reflect atelectasis, aspiration, or pneumonia. A small left pleural effusion may be present. There are degenerative changes of the bilateral shoulders and thoracic spine. XR/XR chest 1V IMPRESSION: New ill-defined patchy airspace opacities concerning for multifocal infection. New confluent retrocardiac left base consolidation could reflect atelectasis, aspiration, or pneumonia.
[2020-04-05 16:23] LABS: Glucose, Whole Blood 136 mg/dL (60-115)
--- NOTE | 2020-04-05 16:28 | ED_ITS ---
HPI - Altered Mental Status General Chief Complaint: Recheck/Abnormal Lab/Rx Stated Complaint: hypoglycemia Time Seen by Provider: 04/05/20 16:03 Source: family Mode of arrival: EMS Limitations: altered mental status History of Present Illness HPI narrative: Patient history of diabetes on insulin sliding scale and long- acting insulin was doing fine earlier today had breakfast per and then she took insulin and after half an hour so patient became lethargic and not responsive on arrival of EMS patient's blood sugar was 28 was given D10 250 mL repeat blood sugar was 278 and when she arrived blood sugar was 100. No history of seizures no chest pain no shortness of breath no history of any head injury HPI from the family and the ems patient's rectal temperature was 93.1 degrees patient was admitted here on 03 08 discharged on 03/12 to detention for similar presentation with hypoglycemia and UTI with sepsis received IV Rocephin that time Related Data Home Medications Medication Instructions Recorded Confirmed blood sugar diagnostic #10 ea 12/24/19 12/29/19 lancets 33 gauge #100 ea 12/24/19 12/29/19 pen needle, diabetic 32 gauge x #50 ea 12/24/19 12/29/19 ferrous gluconate 324 mg PO BID 12/29/19 04/05/20 levothyroxine 50 mcg PO DAILY 12/29/19 04/05/20 albuterol sulfate 90 mcg/actuation 2 puff INHALATION Q4H PRN 04/04/20 04/05/20 aerosol inhaler aspirin 81 mg PO DAILY 04/05/20 04/05/20 insulin aspart U-100 [Novolog 1 sliding scale dose SUBCUT 04/05/20 04/05/20 U-100 Insulin aspart] USEASDIRECTD insulin degludec [Tresiba 46 unit SUBCUT DAILY 04/05/20 04/05/20 FlexTouch U-200] ipratropium-albuterol [Combivent 1 puff INHALATION Q6H 04/05/20 04/05/20 Respimat] linagliptin [Tradjenta] 5 mg PO DAILY 04/05/20 04/05/20 polyethylene glycol 3350 [Miralax] 17 g PO DAILY PRN 04/05/20 04/05/20 Previous Rx's Medication Instructions Recorded carvedilol 6.25 mg tablet 6.25 mg PO BID #60 tab 02/03/20 cholecalciferol (vitamin D3) 50 50 mcg PO DAILY #30 cap 02/14/20 mcg (2,000 unit) capsule amlodipine 10 mg tablet 10 mg PO DAILY #30 tab 02/20/20 atorvastatin 80 mg tablet 80 mg PO BEDTIME #30 tab 02/20/20 doxazosin 4 mg tablet 12 mg PO DAILY #90 tab 02/20/20 hydralazine 100 mg tablet 100 mg PO BID #90 tab 02/20/20 isosorbide mononitrate 120 mg 120 mg PO DAILY #30 tab 02/20/20 tablet,extended release 24 hr omeprazole 20 mg capsule,delayed 20 mg PO BID #60 cap 02/20/20 release Allergies Allergy/AdvReac Type Severity Reaction Status Date / Time oxycodone Allergy Unknown rash Verified 04/04/20 10:11 Review of Systems Review of Systems: Yes Unobtainable due to mental status Neurologic: Reports confusion Psychiatric: Psychiatric: Reports confusion PMFSH Past Medical History Medical History Acute on chronic kidney failure Acute UTI Anemia in chronic kidney disease Bronchitis CAD (coronary artery disease) Carotid stenosis, bilateral CKD (chronic kidney disease) stage 4, GFR 15-29 ml/min COPD (chronic obstructive pulmonary disease) Diabetes mellitus with chronic kidney disease, with long-term current use of insulin Dyslipidemia Gastritis GERD (gastroesophageal reflux disease) HTN (hypertension) Hypothyroid Left thalamic infarction Obesity RAISA (obstructive sleep apnea) PAF (paroxysmal atrial fibrillation) Pulmonary nodule Sepsis Thyroid cancer Surgical History H/O angioplasty H/O heart artery stent H/O: hysterectomy History of thyroidectomy Social History Social History Household Members: Spouse Housing: House Alcohol intake: never Smoking Status: Former smoker Second Hand Smoke Exposure: Yes Use of substances other than those prescribed or required for medical reasons: No Advance Directives: No Advance Directives Information Provided: Yes service: No Current occupational status: retired Physical Exam Vital Signs: Vital Signs: Last Vital Signs Temp 95.1 F L 04/05/20 21:50 Pulse 62 04/05/20 21:50 Resp 16 04/05/20 21:50 BP 178/52 H 04/05/20 21:50 Pulse Ox 97 04/05/20 21:50 Body Mass Index 41.1 Const: General: well developed, confusion and tired appearing Nutritional Appearance: average body habitus Orientation/consciousness: oriented to person and confusion HENMT: Head: Yes normocephalic and Yes atraumatic Ears: hearing grossly normal bilaterally General nose exam: Normal external nose present Face and sinus: Yes normal facial exam Mouth: Normal oral and palatal mucosa present Throat: Yes posterior oropharynx normal Eyes: Conjunctivae: conjunctival abnormal ([place]++) Sclerae: sclerae normal Corneas: corneas normal Pupils: Equal, round and reactive pupils present EOM: EOMs intact bilaterally Direct Ophthalmoscopy: normal light reflex Neck: Neck: Yes normal visual inspection and Yes no meningeal signs Thyroid: Thyroid normal Carotids: normal carotid upstroke Lymphatic: no lymphadenopathy noted Chest: Chest palpation & inspection: normal inspection of the chest and normal palpation of entire chest wall Resp: Effort & Inspection: normal respiratory effort Auscultation: clear to auscultation bilaterally, no crackles, no rales and no rhonchi Cardio: Jugular venous distension: no JVD Palpation: normal PMI Rate: bradycardic Rhythm: regular rhythm Heart sounds: S1 normal heart sound present, S2 normal heart sound present and no murmurs GI: Inspection: Yes normal to inspection Palpation (GI): Soft to palpation, nontender and no hernias Percussion: Yes normal to percussion Auscultation: normal bowel sounds : General: Yes no CVA tenderness Back/Spine/Pelvis: Back: no CVA tenderness Thoracic/Lumbar Spine: thoracic and lumbar spine normal to inspection Skin: General skin exam: no rashes or lesions noted Neuro: General: oriented to person, tone normal, no meningeal signs, no focal motor deficits, CN's II-XI intact bilaterally and confusion Cranial nerves: Yes Equal, round and reactive pupils present Extrem: General: Yes normal to inspection and Yes no pedal edema Course Course Course Narrative: Patient with hypoglycemia secondary to prolonged use of insulin persistent hypothermia with normal WBC count level will continue to have [facility] chest x-ray showed possible aspiration was started on Zosyn patient is more alert and awake now taking p.o. fluids MDM - Altered Mental Status MDM Narrative Medical decision making narrative: Patient has hyperglycemia without her mental status likely iatrogenic because of wrong dosage of insulin blood sugar improved orientation has improved patient came here with similar presentation last month advised to decrease the insulin dose. Workup showed bilateral infiltrate in the lungs likely aspiration will start her on Zosyn patient was hypothermic on arrival likely from hypoglycemia questionable from sepsis elevated likely from multifactorial. Patient heart rate improved to 60 sinus rhythm and temperature also improved to 93.9 patient is more alert and awake taking p.o. fluids will admit patient Differential Diagnosis Differential diagnosis: Likely encephalopathy and hypoglycemia Medical Records Attestation: I reviewed the patient's medical records. Lab Data Attestation: I reviewed the patient's lab results. Result diagrams: 04/05/20 16:45 04/05/20 16:44 Labs: Lab Results 04/05/20 04/05/20 04/05/20 Range/Units 15:30 16:19 16:44 WBC (4.8-10.8) X10*3/uL RBC (4.20-5.50) X10*6/uL Hgb (12.0-16.0) g/dl Hct (37-47) % MCV (80-98) fL MCH (27.0-33.0) pg MCHC (31.0-35.0) g/dl RDW (11.0-16.0) % Plt Count (160-400) X10*3/uL MPV (9.4-12.3) fL Immature Gran % (Auto) (0.0-0.4) % Neut % (Auto) (45-73) % Lymph % (Auto) (20-40) % [place] % (Auto) (2-11) % Eos % (Auto) (0-4) % Baso % (Auto) (0-2) % Lymph # (Auto) (1.2-4.9) X10*3/uL [place] # (Auto) (0.1-1.2) X10*3/uL Eos # (Auto) (0.0-0.4) X10*3/uL Baso # (Auto) (0.0-0.2) X10*3/uL Abs Immat Gran (auto) (0.00-0.03) X10*3/uL Absolute Neuts (auto) (2.0-8.3) X10*3/uL Absolute Nucleated RBC (0.0-0.012) X10*3/uL Nucleated RBC % (auto) (0.0-0.2) /100WBC PT (10.8-13.0) SEC INR (0.9-1.1) APTT (24.1-38.0) SEC Sodium (135-145) mmol/L Potassium (3.3-5.1) mmol/l Chloride (96-108) mmol/L Carbon Dioxide (22-29) mmol/L Anion Gap (12-20) BUN (9-16) mg/dL Creatinine (0.5-1.4) mg/dL Estim Creat Clear Calc Estimated GFR POC Glucose 100 136 H (60-115) mg/dL Random Glucose (60-115) mg/dL Lactic Acid 1.0 (0.5-2.0) mmol/L Calcium (8.4-10.2) mg/dL Total Bilirubin (0.0-1.0) mg/dL AST (5-31) U/L ALT (0-31) U/L Alkaline Phosphatase (39-117) U/L Troponin I High Sens (<3.5-17.0) ng/L Total Protein (6.5-8.0) g/dL Albumin (3.5-5.0) g/dL Lipase (8-78) U/L TSH (0.32-4.0) uIU/mL Urine Color Urine Appearance Urine pH (5.0-8.0) Ur Specific [place] (1.005-1.025) Urine Protein (NEG-TRACE) MG/DL Urine Glucose (UA) (NEG) MG/DL Urine Ketones (NEG) MG/DL Urine Blood (NEG) Urine Nitrite (NEG) Ur Leukocyte Esterase (NEG) Urine RBC (0) /HPF Urine WBC (0-4) /HPF Ur Squamous Epith Cells /LPF Urine Bacteria /LPF Stool Occult Blood (NEG) COVID-19 (ADRIANA) (Negative) COVID-19 Clin Com 04/05/20 04/05/20 04/05/20 Range/Units 16:44 16:44 16:44 WBC (4.8-10.8) X10*3/uL RBC (4.20-5.50) X10*6/uL Hgb (12.0-16.0) g/dl Hct (37-47) % MCV (80-98) fL MCH (27.0-33.0) pg MCHC (31.0-35.0) g/dl RDW (11.0-16.0) % Plt Count (160-400) X10*3/uL MPV (9.4-12.3) fL Immature Gran % (Auto) (0.0-0.4) % Neut % (Auto) (45-73) % Lymph % (Auto) (20-40) % [place] % (Auto) (2-11) % Eos % (Auto) (0-4) % Baso % (Auto) (0-2) % Lymph # (Auto) (1.2-4.9) X10*3/uL [place] # (Auto) (0.1-1.2) X10*3/uL Eos # (Auto) (0.0-0.4) X10*3/uL Baso # (Auto) (0.0-0.2) X10*3/uL Abs Immat Gran (auto) (0.00-0.03) X10*3/uL Absolute Neuts (auto) (2.0-8.3) X10*3/uL Absolute Nucleated RBC (0.0-0.012) X10*3/uL Nucleated RBC % (auto) (0.0-0.2) /100WBC PT (10.8-13.0) SEC INR (0.9-1.1) APTT (24.1-38.0) SEC Sodium 138 (135-145) mmol/L Potassium 4.7 (3.3-5.1) mmol/l Chloride 105 (96-108) mmol/L Carbon Dioxide 27 (22-29) mmol/L Anion Gap 11 L (12-20) BUN 25 H (9-16) mg/dL Creatinine 1.96 H (0.5-1.4) mg/dL Estim Creat Clear Calc 21.2 Estimated GFR 25 POC Glucose (60-115) mg/dL Random Glucose 100 (60-115) mg/dL Lactic Acid (0.5-2.0) mmol/L Calcium 7.9 L D (8.4-10.2) mg/dL Total Bilirubin 0.4 (0.0-1.0) mg/dL AST 31 D (5-31) U/L ALT 18 (0-31) U/L Alkaline Phosphatase 106 D (39-117) U/L Troponin I High Sens 4.4 (<3.5-17.0) ng/L Total Protein 5.3 L (6.5-8.0) g/dL Albumin 3.1 L (3.5-5.0) g/dL Lipase 73 (8-78) U/L TSH 20.49 H (0.32-4.0) uIU/mL Urine Color Urine Appearance Urine pH (5.0-8.0) Ur Specific [place] (1.005-1.025) Urine Protein (NEG-TRACE) MG/DL Urine Glucose (UA) (NEG) MG/DL Urine Ketones (NEG) MG/DL Urine Blood (NEG) Urine Nitrite (NEG) Ur Leukocyte Esterase (NEG) Urine RBC (0) /HPF Urine WBC (0-4) /HPF Ur Squamous Epith Cells /LPF Urine Bacteria /LPF Stool Occult Blood (NEG) COVID-19 (ADRIANA) Negative (Negative) COVID-19 Clin Com See Note 04/05/20 04/05/20 04/05/20 Range/Units 16:45 16:45 16:59 WBC 6.4 (4.8-10.8) X10*3/uL RBC 3.08 L (4.20-5.50) X10*6/uL Hgb 8.7 L (12.0-16.0) g/dl Hct 27.0 L (37-47) % MCV 87.7 (80-98) fL MCH 28.2 (27.0-33.0) pg MCHC 32.2 (31.0-35.0) g/dl RDW 15.4 (11.0-16.0) % Plt Count 203 (160-400) X10*3/uL MPV 10.2 (9.4-12.3) fL Immature Gran % (Auto) 0.5 H (0.0-0.4) % Neut % (Auto) 77.0 H (45-73) % Lymph % (Auto) 13.9 L (20-40) % [place] % (Auto) 7.2 (2-11) % Eos % (Auto) 1.2 (0-4) % Baso % (Auto) 0.2 (0-2) % Lymph # (Auto) 0.9 L (1.2-4.9) X10*3/uL [place] # (Auto) 0.5 (0.1-1.2) X10*3/uL Eos # (Auto) 0.1 (0.0-0.4) X10*3/uL Baso # (Auto) 0.0 (0.0-0.2) X10*3/uL Abs Immat Gran (auto) 0.03 (0.00-0.03) X10*3/uL Absolute Neuts (auto) 4.9 (2.0-8.3) X10*3/uL Absolute Nucleated RBC 0.000 (0.0-0.012) X10*3/uL Nucleated RBC % (auto) 0.0 (0.0-0.2) /100WBC PT 11.7 (10.8-13.0) SEC INR 1.0 (0.9-1.1) APTT 41.2 H (24.1-38.0) SEC Sodium (135-145) mmol/L Potassium (3.3-5.1) mmol/l Chloride (96-108) mmol/L Carbon Dioxide (22-29) mmol/L Anion Gap (12-20) BUN (9-16) mg/dL Creatinine (0.5-1.4) mg/dL Estim Creat Clear Calc Estimated GFR POC Glucose (60-115) mg/dL Random Glucose (60-115) mg/dL Lactic Acid (0.5-2.0) mmol/L Calcium (8.4-10.2) mg/dL Total Bilirubin (0.0-1.0) mg/dL AST (5-31) U/L ALT (0-31) U/L Alkaline Phosphatase (39-117) U/L Troponin I High Sens (<3.5-17.0) ng/L Total Protein (6.5-8.0) g/dL Albumin (3.5-5.0) g/dL Lipase (8-78) U/L TSH (0.32-4.0) uIU/mL Urine Color STRAW Urine Appearance CLEAR Urine pH 6.0 (5.0-8.0) Ur Specific [place] 1.025 (1.005-1.025) Urine Protein 3+ H (NEG-TRACE) MG/DL Urine Glucose (UA) NEG (NEG) MG/DL Urine Ketones NEG (NEG) MG/DL Urine Blood NEG (NEG) Urine Nitrite NEG (NEG) Ur Leukocyte Esterase NEG (NEG) Urine RBC 0 (0) /HPF Urine WBC 10-14 H (0-4) /HPF Ur Squamous Epith Cells NONE /LPF Urine Bacteria 4+ /LPF Stool Occult Blood (NEG) COVID-19 (ADRIANA) (Negative) COVID-19 Clin Com 04/05/20 04/05/20 04/05/20 Range/Units 17:19 18:20 19:36 WBC (4.8-10.8) X10*3/uL RBC (4.20-5.50) X10*6/uL Hgb (12.0-16.0) g/dl Hct (37-47) % MCV (80-98) fL MCH (27.0-33.0) pg MCHC (31.0-35.0) g/dl RDW (11.0-16.0) % Plt Count (160-400) X10*3/uL MPV (9.4-12.3) fL Immature Gran % (Auto) (0.0-0.4) % Neut % (Auto) (45-73) % Lymph % (Auto) (20-40) % [place] % (Auto) (2-11) % Eos % (Auto) (0-4) % Baso % (Auto) (0-2) % Lymph # (Auto) (1.2-4.9) X10*3/uL [place] # (Auto) (0.1-1.2) X10*3/uL Eos # (Auto) (0.0-0.4) X10*3/uL Baso # (Auto) (0.0-0.2) X10*3/uL Abs Immat Gran (auto) (0.00-0.03) X10*3/uL Absolute Neuts (auto) (2.0-8.3) X10*3/uL Absolute Nucleated RBC (0.0-0.012) X10*3/uL Nucleated RBC % (auto) (0.0-0.2) /100WBC PT (10.8-13.0) SEC INR (0.9-1.1) APTT (24.1-38.0) SEC Sodium (135-145) mmol/L Potassium (3.3-5.1) mmol/l Chloride (96-108) mmol/L Carbon Dioxide (22-29) mmol/L Anion Gap (12-20) BUN (9-16) mg/dL Creatinine (0.5-1.4) mg/dL Estim Creat Clear Calc Estimated GFR POC Glucose 78 176 H 234 H (60-115) mg/dL Random Glucose (60-115) mg/dL Lactic Acid (0.5-2.0) mmol/L Calcium (8.4-10.2) mg/dL Total Bilirubin (0.0-1.0) mg/dL AST (5-31) U/L ALT (0-31) U/L Alkaline Phosphatase (39-117) U/L Troponin I High Sens (<3.5-17.0) ng/L Total Protein (6.5-8.0) g/dL Albumin (3.5-5.0) g/dL Lipase (8-78) U/L TSH (0.32-4.0) uIU/mL Urine Color Urine Appearance Urine pH (5.0-8.0) Ur Specific [place] (1.005-1.025) Urine Protein (NEG-TRACE) MG/DL Urine Glucose (UA) (NEG) MG/DL Urine Ketones (NEG) MG/DL Urine Blood (NEG) Urine Nitrite (NEG) Ur Leukocyte Esterase (NEG) Urine RBC (0) /HPF Urine WBC (0-4) /HPF Ur Squamous Epith Cells /LPF Urine Bacteria /LPF Stool Occult Blood (NEG) COVID-19 (ADRIANA) (Negative) COVID-19 Clin Com 04/05/20 04/05/20 Range/Units 19:45 21:23 WBC (4.8-10.8) X10*3/uL RBC (4.20-5.50) X10*6/uL Hgb (12.0-16.0) g/dl Hct (37-47) % MCV (80-98) fL MCH (27.0-33.0) pg MCHC (31.0-35.0) g/dl RDW (11.0-16.0) % Plt Count (160-400) X10*3/uL MPV (9.4-12.3) fL Immature Gran % (Auto) (0.0-0.4) % Neut % (Auto) (45-73) % Lymph % (Auto) (20-40) % [place] % (Auto) (2-11) % Eos % (Auto) (0-4) % Baso % (Auto) (0-2) % Lymph # (Auto) (1.2-4.9) X10*3/uL [place] # (Auto) (0.1-1.2) X10*3/uL Eos # (Auto) (0.0-0.4) X10*3/uL Baso # (Auto) (0.0-0.2) X10*3/uL Abs Immat Gran (auto) (0.00-0.03) X10*3/uL Absolute Neuts (auto) (2.0-8.3) X10*3/uL Absolute Nucleated RBC (0.0-0.012) X10*3/uL Nucleated RBC % (auto) (0.0-0.2) /100WBC PT (10.8-13.0) SEC INR (0.9-1.1) APTT (24.1-38.0) SEC Sodium (135-145) mmol/L Potassium (3.3-5.1) mmol/l Chloride (96-108) mmol/L Carbon Dioxide (22-29) mmol/L Anion Gap (12-20) BUN (9-16) mg/dL Creatinine (0.5-1.4) mg/dL Estim Creat Clear Calc Estimated GFR POC Glucose 187 H (60-115) mg/dL Random Glucose (60-115) mg/dL Lactic Acid (0.5-2.0) mmol/L Calcium (8.4-10.2) mg/dL Total Bilirubin (0.0-1.0) mg/dL AST (5-31) U/L ALT (0-31) U/L Alkaline Phosphatase (39-117) U/L Troponin I High Sens (<3.5-17.0) ng/L Total Protein (6.5-8.0) g/dL Albumin (3.5-5.0) g/dL Lipase (8-78) U/L TSH (0.32-4.0) uIU/mL Urine Color Urine Appearance Urine pH (5.0-8.0) Ur Specific [place] (1.005-1.025) Urine Protein (NEG-TRACE) MG/DL Urine Glucose (UA) (NEG) MG/DL Urine Ketones (NEG) MG/DL Urine Blood (NEG) Urine Nitrite (NEG) Ur Leukocyte Esterase (NEG) Urine RBC (0) /HPF Urine WBC (0-4) /HPF Ur Squamous Epith Cells /LPF Urine Bacteria /LPF Stool Occult Blood POS (NEG) COVID-19 (ADRIANA) (Negative) COVID-19 Clin Com ECG Data ECG #1: Attestation: I personally reviewed and interpreted this ECG as follows: Interpretation: Has bradycardia with heart rate of 44 beats per minute poo r progression of R-waves normal intervals normal axis no acute ischemic changes Critical Care Time Critical Care Time Critical Care Time: Yes Total Critical Care Time: 45 Attestation: Patient acute care Discharge Plan Discharge Clinical Impression: Acute alteration in mental status, Hypoglycemia Hypothyroid Qualifiers: Hypothyroidism type: unspecified Qualified Code(s): E03.9 - Hypothyroidism, unspecified Pneumonia Qualifiers: Pneumonia type: aspiration pneumonia Aspiration pneumonia type: unspecified Laterality: bilateral Lung location: unspecified part of lung Qualified Code(s): J69.0 - Pneumonitis due to inhalation of food and vomit Patient Disposition: Admitted As Inpatient
[2020-04-05] MEDS: Dextrose 5 % and 0.45 % NaCl 1,000 ML 125 ML IVCONT (16:38)
[2020-04-05 16:55] LABS: Basophils Percent Auto 0.2 % (0-2); Eosinophils Absolute Auto 0.1 X10*3/uL (0.0-0.4); Eosinophils Percent Auto 1.2 % (0-4); Hemoglobin 8.7 g/dl (12.0-16.0); Imm Gran Abs Auto 0.03 X10*3/uL (0.00-0.03); Imm Gran Pct Auto 0.5 % (0.0-0.4); Lymphocytes Absolute Auto 0.9 X10*3/uL (1.2-4.9); Lymphocytes Percent Auto 13.9 % (20-40); MANUAL DIFF FLAG NO; Mean Corpuscular HGB Conc 32.2 g/dl (31.0-35.0); Mean Corpuscular Hemoglobin 28.2 pg (27.0-33.0); Mean Corpuscular Volume 87.7 fL (80-98); Mean Platelet Volume 10.2 fL (9.4-12.3); Monocytes Absolute Auto 0.5 X10*3/uL (0.1-1.2); Monocytes Percent Auto 7.2 % (2-11); Neutrophils Absolute Auto 4.9 X10*3/uL (2.0-8.3); Platelet Count 203 X10*3/uL (160-400); Red Blood Count 3.08 X10*6/uL (4.20-5.50); Red Cell Distribution Width 15.4 % (11.0-16.0); White Blood Count 6.4 X10*3/uL (4.8-10.8)
[2020-04-05 17:03] LABS: Prothrombin Time 11.7 SEC (10.8-13.0)
[2020-04-05 17:06] LABS: Partial Thromboplastin Time 41.2 SEC (24.1-38.0)
[2020-04-05 17:17] LABS: COVID-19 Test Negative (Negative); IDNOW Serial# 9DD0AD1C
[2020-04-05 17:17] LABS: Glucose Urine UA NEG (NEG); Leukocyte Esterase Urine NEG (NEG); Nitrite Urine NEG (NEG); Specific Gravity - Urine 1.025 (1.005-1.025); Urine Blood NEG (NEG); Urine Ketones NEG (NEG); Urine Protein 3+ MG/DL (NEG-TRACE)
[2020-04-05 17:18] LABS: Appearance Urine CLEAR; Color Urine STRAW
[2020-04-05 17:24] LABS: Glucose, Whole Blood 78 mg/dL (60-115)
[2020-04-05 17:27] LABS: Alanine Aminotransferase 18 U/L (0-31); Albumin Level 3.1 g/dL (3.5-5.0); Alkaline Phosphatase 106 U/L (39-117); Anion Gap 11 (12-20); Aspartate Amino Transferase 31 U/L (5-31); Bilirubin Total 0.4 mg/dL (0.0-1.0); Blood Urea Nitrogen 25 mg/dL (9-16); Calcium 7.9 mg/dL (8.4-10.2); Carbon Dioxide 27 mmol/L (22-29); Chloride 105 mmol/L (96-108); Creatinine Clr Calc Pharmacy 21.2; Estimated Glomerular Filt Rate 25; Glucose Random 100 mg/dL (60-115); Lipase 73 U/L (8-78); Potassium 4.7 mmol/l (3.3-5.1); Sodium 138 mmol/L (135-145); Total Protein 5.3 g/dL (6.5-8.0)
[2020-04-05 17:33] LABS: Troponin-I High Sensitivity 4.4 ng/L (<3.5-17.0)
--- NOTE | 2020-04-05 17:42 | PC.NURSE ---
pt more awake at this time, answering questions appropriately, denies pain, sinus mayur in the 50 s, 55 at this time, which is a improvement form the low 40's, blood sugar still continuos on dropping even with the dextro 5% and 45%ns infusing at 125ml/h, pt able to drink oj and ate gram crackers, rectal temp also dropping currently 92.2, bear hugger in place and temp incresed to HI
[2020-04-05 17:48] LABS: Thyroid Stimulating Hormone 20.49 uIU/mL (0.32-4.0)
[2020-04-05] MEDS: Piperacillin Sodium/Tazobactam 2.25 GM in 0.9 % Sodium Chloride 50 ML IV (18:08)
[2020-04-05] MEDS: Hydrocortisone Sod Succ/PF 100 MG VIAL 50 MG IVPUSH (18:08)
[2020-04-05 18:25] LABS: Glucose, Whole Blood 176 mg/dL (60-115)
[2020-04-05 18:35] LABS: Bacteria Urine 4+ /LPF; RBC Urine 0 /HPF (0); UACC CULT YES
--- NOTE | 2020-04-05 19:34 | PC.NURSE ---
PT ASSISTED ONTO BED ROSE AND CLEANED UP. PT HAD A LARGE BM, SEMI FORMED AND LIQUID. DARK IN COLOR. PT REPORTS THAT SHE HAD NOT HAD A BM IN 3 DAYS.
[2020-04-05 19:40] LABS: Glucose, Whole Blood 234 mg/dL (60-115)
[2020-04-05 20:06] LABS: OBS Int Ctl Valid YES; OBS1 POS (NEG)
--- NOTE | 2020-04-05 20:56 | P.HPHOSP_ITS ---
History of Present Illness Date of Service: 04/05/20 Chief Complaint: AMS, Hypoglycemia, asp. pneumonia 79 years old lady with past medical history of diabetes, CKD, CAD, COPD among others who presents to the hospital with altered mentation found to have low glucose level in 20s at home. She reports going to the bathroom in the morning after having sips orange juice when using blacked out and she herself on the floor. She does not recall of details of the story. As per ED provider has seems like she making mistakes thinking her medications and she ended up having low blood sugar as EMS found her levels around 28. She received IV and oral glucose replacement with good response. In the emergency she was found to be hypothermic requiring Belkys Hugger. Images for the chest was concerning for possible aspiration pneumonia. She was started on IV antibiotics. TSH found to be elevated with positive occult blood test what her hemoglobin has been stable. Admitted for further evaluation and treatment. Review of Systems Review of Systems: No fever, chills or weakness No chest pain, palpitation No shortness of breath or coughing No abdominal pain, nausea or vomiting No urinary symptoms No any rash or wounds Neurologic: Reports confusion Psychiatric: Psychiatric: Reports confusion [facility] Medical History Acute on chronic kidney failure Acute UTI Anemia in chronic kidney disease Bronchitis CAD (coronary artery disease) Carotid stenosis, bilateral CKD (chronic kidney disease) stage 4, GFR 15-29 ml/min COPD (chronic obstructive pulmonary disease) Diabetes mellitus with chronic kidney disease, with long-term current use of insulin Dyslipidemia Gastritis GERD (gastroesophageal reflux disease) HTN (hypertension) Hypothyroid Left thalamic infarction Obesity RAISA (obstructive sleep apnea) PAF (paroxysmal atrial fibrillation) Pulmonary nodule Sepsis Thyroid cancer Surgical History H/O angioplasty H/O heart artery stent H/O: hysterectomy History of thyroidectomy Social History Household Members: Spouse Housing: House Alcohol intake: never Smoking Status: Former smoker Second Hand Smoke Exposure: Yes Use of substances other than those prescribed or required for medical reasons: No Advance Directives: No Advance Directives Information Provided: Yes service: No Current occupational status: retired Meds Allergies Allergy/AdvReac Type Severity Reaction Status Date / Time oxycodone Allergy Unknown rash Verified 04/04/20 10:11 Home Medications Medication Instructions Recorded Confirmed Type blood sugar diagnostic #10 ea 12/24/19 12/29/19 History lancets 33 gauge #100 ea 12/24/19 12/29/19 History pen needle, diabetic 32 gauge x #50 ea 12/24/19 12/29/19 History 5/32 ferrous gluconate 324 mg PO BID 12/29/19 04/05/20 History levothyroxine 50 mcg PO DAILY 12/29/19 04/05/20 History albuterol sulfate 90 mcg/actuation 2 puff INHALATION Q4H PRN 04/04/20 04/05/20 History aerosol inhaler aspirin 81 mg PO DAILY 04/05/20 04/05/20 History insulin aspart U-100 [Novolog 1 sliding scale dose SUBCUT 04/05/20 04/05/20 History U-100 Insulin aspart] USEASDIRECTD insulin degludec [Tresiba 46 unit SUBCUT DAILY 04/05/20 04/05/20 History FlexTouch U-200] ipratropium-albuterol [Combivent 1 puff INHALATION Q6H 04/05/20 04/05/20 History Respimat] linagliptin [Tradjenta] 5 mg PO DAILY 04/05/20 04/05/20 History polyethylene glycol 3350 [Miralax] 17 g PO DAILY PRN 04/05/20 04/05/20 History Physical Exam Vital Signs and Narrative: Vital Signs: Last Vital Signs Temp 93.9 F L 04/05/20 19:33 Pulse 60 04/05/20 19:33 Resp 16 04/05/20 19:33 BP 184/57 H 04/05/20 19:33 Pulse Ox 99 04/05/20 19:33 Body Mass Index 41.1 Constitutional : Alert, oriented, feels cold and cover with better Hugger Neck : Normal inspection, Supple Cardiovascular : RRR, S1 S2, no lower extremity edema Respiratory : There bilateral air entry, bibasilar fine crackles, no wheezes or rhonchi Gastrointestinal: soft, lax, Normal bowel sounds, Non tender Skin : Warm/Dry, No rash Neurological : Alert & oriented x3, No focal deficit Const: General: confusion Orientation/consciousness: confusion Neuro: General: confusion Results Labs CBC and Chem 7: 04/05/20 16:45 04/05/20 16:44 Labs: Laboratory Results - last 24 hr 04/05/20 04/05/20 04/05/20 15:30 16:19 16:44 MCV MCH MCHC RDW Plt Count MPV Immature Gran % (Auto) Neut % (Auto) Lymph % (Auto) Beadle % (Auto) Eos % (Auto) Baso % (Auto) Lymph # (Auto) Beadle # (Auto) Eos # (Auto) Baso # (Auto) Abs Immat Gran (auto) Absolute Neuts (auto) Absolute Nucleated RBC Nucleated RBC % (auto) PT INR APTT Anion Gap Estim Creat Clear Calc Estimated GFR POC Glucose 100 136 H Random Glucose Lactic Acid 1.0 Calcium Total Bilirubin AST ALT Alkaline Phosphatase Troponin I High Sens Total Protein Albumin Lipase TSH Urine Color Urine Appearance Urine pH Ur Specific [place] Urine Protein Urine Glucose (UA) Urine Ketones Urine Blood Urine Nitrite Ur Leukocyte Esterase Urine RBC Urine WBC Ur Squamous Epith Cells Urine Bacteria Stool Occult Blood COVID-19 (ADRIANA) COVID-[employer] 04/05/20 04/05/20 04/05/20 16:44 16:44 16:44 MCV MCH MCHC RDW Plt Count MPV Immature Gran % (Auto) Neut % (Auto) Lymph % (Auto) Beadle % (Auto) Eos % (Auto) Baso % (Auto) Lymph # (Auto) Beadle # (Auto) Eos # (Auto) Baso # (Auto) Abs Immat Gran (auto) Absolute Neuts (auto) Absolute Nucleated RBC Nucleated RBC % (auto) PT INR APTT Anion Gap 11 L Estim Creat Clear Calc 21.2 Estimated GFR 25 POC Glucose Random Glucose 100 Lactic Acid Calcium 7.9 L D Total Bilirubin 0.4 AST 31 D ALT 18 Alkaline Phosphatase 106 D Troponin I High Sens 4.4 Total Protein 5.3 L Albumin 3.1 L Lipase 73 TSH 20.49 H Urine Color Urine Appearance Urine pH Ur Specific [place] Urine Protein Urine Glucose (UA) Urine Ketones Urine Blood Urine Nitrite Ur Leukocyte Esterase Urine RBC Urine WBC Ur Squamous Epith Cells Urine Bacteria Stool Occult Blood COVID-19 (ADRIANA) Negative COVID-19 [employer] See Note 01/07/21 01/07/21 01/07/21 16:45 16:45 16:59 MCV 87.7 MCH 28.2 MCHC 32.2 RDW 15.4 Plt Count 203 MPV 10.2 Immature Gran % (Auto) 0.5 H Neut % (Auto) 77.0 H Lymph % (Auto) 13.9 L Beadle % (Auto) 7.2 Eos % (Auto) 1.2 Baso % (Auto) 0.2 Lymph # (Auto) 0.9 L [place] # (Auto) 0.5 Eos # (Auto) 0.1 Baso # (Auto) 0.0 Abs Immat Gran (auto) 0.03 Absolute Neuts (auto) 4.9 Absolute Nucleated RBC 0.000 Nucleated RBC % (auto) 0.0 PT 11.7 INR 1.0 APTT 41.2 H Anion Gap Estim Creat Clear Calc Estimated GFR POC Glucose Random Glucose Lactic Acid Calcium Total Bilirubin AST ALT Alkaline Phosphatase Troponin I High Sens Total Protein Albumin Lipase TSH Urine Color STRAW Urine Appearance CLEAR Urine pH 6.0 Ur Specific [place] 1.025 Urine Protein 3+ H Urine Glucose (UA) NEG Urine Ketones NEG Urine Blood NEG Urine Nitrite NEG Ur Leukocyte Esterase NEG Urine RBC 0 Urine WBC 10-14 H Ur Squamous Epith Cells NONE Urine Bacteria 4+ Stool Occult Blood COVID-19 (ADRIANA) COVID-19 [employer] 04/05/20 04/05/20 04/05/20 17:19 18:20 19:36 MCV MCH MCHC RDW Plt Count MPV Immature Gran % (Auto) Neut % (Auto) Lymph % (Auto) Beadle % (Auto) Eos % (Auto) Baso % (Auto) Lymph # (Auto) Beadle # (Auto) Eos # (Auto) Baso # (Auto) Abs Immat Gran (auto) Absolute Neuts (auto) Absolute Nucleated RBC Nucleated RBC % (auto) PT INR APTT Anion Gap Estim Creat Clear Calc Estimated GFR POC Glucose 78 176 H 234 H Random Glucose Lactic Acid Calcium Total Bilirubin AST ALT Alkaline Phosphatase Troponin I High Sens Total Protein Albumin Lipase TSH Urine Color Urine Appearance Urine pH Ur Specific [place] Urine Protein Urine Glucose (UA) Urine Ketones Urine Blood Urine Nitrite Ur Leukocyte Esterase Urine RBC Urine WBC Ur Squamous Epith Cells Urine Bacteria Stool Occult Blood COVID-19 (ADRIANA) COVID-19 [employer] 04/05/20 19:45 MCV MCH MCHC RDW Plt Count MPV Immature Gran % (Auto) Neut % (Auto) Lymph % (Auto) Beadle % (Auto) Eos % (Auto) Baso % (Auto) Lymph # (Auto) Beadle # (Auto) Eos # (Auto) Baso # (Auto) Abs Immat Gran (auto) Absolute Neuts (auto) Absolute Nucleated RBC Nucleated RBC % (auto) PT INR APTT Anion Gap Estim Creat Clear Calc Estimated GFR POC Glucose Random Glucose Lactic Acid Calcium Total Bilirubin AST ALT Alkaline Phosphatase Troponin I High Sens Total Protein Albumin Lipase TSH Urine Color Urine Appearance Urine pH Ur Specific [place] Urine Protein Urine Glucose (UA) Urine Ketones Urine Blood Urine Nitrite Ur Leukocyte Esterase Urine RBC Urine WBC Ur Squamous Epith Cells Urine Bacteria Stool Occult Blood POS COVID-19 (ADRIANA) COVID-19 Clin Com Imaging Radiologist's Impressions: Impressions Chest X-Ray 04/05/20 16:05 IMPRESSION: New ill-defined patchy airspace opacities concerning for multifocal infection. New confluent retrocardiac left base consolidation could reflect atelectasis, aspiration, or pneumonia. Assessment and Plan (1) Acute alteration in mental status: Status: Acute (2) Hypoglycemia: Status: Acute (3) Pneumonia: Qualifiers: Aspiration pneumonia type: unspecified Laterality: bilateral Lung location: unspecified part of lung Pneumonia type: aspiration pneumonia Qualified Code(s): J69.0 - Pneumonitis due to inhalation of food and vomit Status: Acute (4) CKD (chronic kidney disease) stage 4, GFR 15-29 ml/min: Status: Acute (5) Positive occult stool blood test: Status: Acute (6) Hypothyroid: Qualifiers: Hypothyroidism type: unspecified Qualified Code(s): E03.9 - Hypothyroid ism, unspecified Status: Acute 79 years old lady with past medical history of diabetes, CKD, CAD, COPD among others who presents to the hospital with altered mentation found to have low glucose level in 20s at home Metabolic encephalopathy, improving Secondary to acute hypoglycemic event, possible infection To treat hypoglycemia Acute hypoglycemia diabetic patient Home medications still has long-acting insulin and oral linagliptin, both were discontinued last admission Keep on IVF for now Use only SSI with diet She might does not need any diabetic treatment given low HbA1c of 5, to monitor and decide Aspiration pneumonia Reported in CXR Start IV Zosyn Pending cultures Hypothermia Secondary to infection, hypoglycemia, hypothyroidism Treat underlying hypothyroidism Use Bear Hugger and treat infection Asymptomatic bacteriuria Pending urine culture Positive occult blood Stable hemoglobin Hold aspirin for now CKD a a Creatinine at baseline Outpatient follow-up with Nephrology Hypertension Continue doxazosin, hydralazine, isosorbide, carvedilol HLD Continue statin Hypothyroidism TSH elevated to 20 Increase Synthroid from 50-75 in the DVT prophylaxis mechanical devices
--- NOTE | 2020-04-05 21:17 | CT_ITS ---
EXAMINATION: CT HEAD WITHOUT CONTRAST CLINICAL INFORMATION: Altered mental status COMPARISON: CT head 03/08/2020 TECHNIQUE: Contiguous axial imaging was performed from the skull base to vertex without intravenous administration of contrast. Coronal and sagittal reformatted images are performed at CT scanner This CT examination was performed using dose optimization techniques as appropriate, variously including the following: *Automated exposure control *Adjustment of mA and/or kV according to patient size (this includes techniques or standardized protocols for targeted exams where dose is matched to indication/reason for exam; i.e. 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 Small lacunar infarcts in the left thalamus and bilateral basal ganglia. There is no evidence of acute intracranial hemorrhage or acute territorial infarction. No abnormal mass effect or midline shift is seen. Harris to white matter differentiation is well preserved. No extra-axial fluid collections are identified. There is atrophy with prominence of the ventricles and the sulci and hypodensity of the periventricular white matter due to chronic small vessel ischemic disease. There are vascular calcifications of the internal carotid arteries bilaterally. The osseous structures and soft tissues are normal. The mastoid air cells and visualized portions of the paranasal sinuses are well aerated. CT/CT head/brain wo con IMPRESSION: No acute intracranial pathology.
[2020-04-05 21:27] LABS: Glucose, Whole Blood 187 mg/dL (60-115)
--- NOTE | 2020-04-05 22:20 | PC.NURSE ---
made pt pb&j sandwich and oatmeal.
[2020-04-06] VITALS (13 sets, daily range): BP systolic 153–190; BP diastolic 51–77; PULSE 57–72; RESP 15–24; TEMP 36.6–37.2; O2SAT 93–100
--- NOTE | 2020-04-06 00:04 | PC.NURSE ---
pt wakes easily, still has air warmer on her for comfort. last oral temp 98.1. pt finished sandwich and oatmeal.
[2020-04-06] MEDS: Pantoprazole Sodium 40 MG/10 ML VIAL IVPUSH (01:58)
[2020-04-06] MEDS: Piperacillin Sodium/Tazobactam 2.25 GM in 0.9 % Sodium Chloride 50 ML IV ×3 (01:58→20:45)
[2020-04-06] MEDS: hydrALAZINE HCl 50 MG TABLET 100 MG PO ×3 (01:59→20:54)
[2020-04-06 02:22] LABS: Glucose, Whole Blood 213 mg/dL (60-115)
--- NOTE | 2020-04-06 04:19 | PC.NURSE ---
PT HAS BEEN HYDRATING WELL ALL NIGHT, ASKING FOR WATER EVERY FEW HOURS.
[2020-04-06 06:16] LABS: Hemoglobin 7.7 g/dl (12.0-16.0); Mean Corpuscular HGB Conc 32.1 g/dl (31.0-35.0); Mean Corpuscular Hemoglobin 27.9 pg (27.0-33.0); Mean Platelet Volume 9.8 fL (9.4-12.3); Platelet Count 199 X10*3/uL (160-400); Red Blood Count 2.76 X10*6/uL (4.20-5.50); Red Cell Distribution Width 15.2 % (11.0-16.0)
[2020-04-06] MEDS: Acetaminophen 325 MG TABLET 650 MG PO (06:18)
[2020-04-06 06:44] LABS: Anion Gap 11 (12-20); Blood Urea Nitrogen 24 mg/dL (9-16); Calcium 7.4 mg/dL (8.4-10.2); Carbon Dioxide 26 mmol/L (22-29); Chloride 104 mmol/L (96-108); Creatinine Clr Calc Pharmacy 21.9; Estimated Glomerular Filt Rate 26; Glucose Random 80 mg/dL (60-115); Potassium 4.8 mmol/l (3.3-5.1); Sodium 136 mmol/L (135-145)
[2020-04-06 07:01] LABS: Glucose, Whole Blood 50 mg/dL (60-115)
--- NOTE | 2020-04-06 10:47 | MHC.CM.PN ---
Met with patient in regards to d/c planning. Patient was discharged from [facility] on 03/12 to [facility]. Patient was discharged home with [facility] on 04/03. Patient returned to ER on 04/05 due to being unresponsive. Patient being admitted for aspiration pneumonia. Patient lives with her and uses a walker for mobility. If short term rehab, patient woulld prefer not to return to [facility]. Patient would prefer to go to [facility]. Physical therapy eval for home safety will be needed prior to discharge. Referrals made to [facility] and [facility] in [employer]. PCP verified as Dr De Dios. HCP verified to be on file. IMM explained and signed. Anticipate patient will need help arranging transportation when medically stable. Continue to monitor for d/c needs.
[2020-04-06] MEDS: Albuterol/Iprat 2.5/0.5MG 3 ML AMPUL.NEB INHALE (10:55)
[2020-04-06 11:07] LABS: Glucose, Whole Blood 115 mg/dL (60-115)
[2020-04-06] MEDS: Levothyroxine Sodium 50 MCG TABLET 75 MCG PO (12:28)
[2020-04-06] MEDS: carvediloL 6.25 MG TABLET PO ×2 (12:30→20:55)
[2020-04-06] MEDS: Atorvastatin Calcium 80 MG TABLET PO ×2 (13:42→20:55)
[2020-04-06] MEDS: amLODIPine Besylate 10 MG TABLET PO (13:42)
[2020-04-06] MEDS: Aspirin 81 MG TAB.CHEW PO (13:43)
[2020-04-06] MEDS: Omeprazole 20 MG CAPSULE.DR PO ×2 (13:43→20:55)
[2020-04-06] MEDS: 0.9 % Sodium Chloride Flush 3 ML SYRINGE IVFLUSH ×2 (13:45→23:31)
[2020-04-06] MEDS: Cholecalciferol (Vitamin D3) 25 MCG TABLET 50 MCG PO (13:45)
[2020-04-06 14:53] LABS: Glucose, Whole Blood 165 mg/dL (60-115)
--- NOTE | 2020-04-06 16:22 | P.PNIM_ITS ---
Subjective Subjective Date of Service: 04/06/20 Interval History: patient seen and examined at bedside patient reported weakness Review of Systems No fever, chills or weakness No chest pain, palpitation No shortness of breath or coughing No abdominal pain, nausea or vomiting No urinary symptoms No any rash or wounds Neurologic Neurologic: Reports confusion Psychiatric Psychiatric: Reports confusion Physical Exam Vital Signs: Vital Signs: Last Vital Signs Temp 98.9 F 04/06/20 15:40 Pulse 65 04/06/20 15:40 Resp 24 H 04/06/20 15:40 BP 153/63 H 04/06/20 15:40 Pulse Ox 96 04/06/20 15:40 Body Mass Index 41.1 Const: General: confusion Orientation/consciousness: confusion Resp: Effort & Inspection: normal respiratory effort Cardio: Jugular venous distension: no JVD GI: Inspection: Yes normal to inspection Neuro: General: confusion Objective Data Current Medications Generic Name Dose Route Start Last Admin Trade Name Freq PRN Reason Stop Dose Admin Acetaminophen 650 mg 04/06/20 12:44 Acetaminophen 325 Mg Tablet PO Q6H PRN Pain, Mild (Pain Scale 1-3) Al Hydroxide/Mg Hydroxide 30 ml 04/06/20 12:44 Magnesium Hydrox/Alum Hydrox 30 Ml Oral.Susp PO Q4H PRN Heartburn/Nausea Albuterol Sulfate 2 puff 04/06/20 12:44 Albuterol Sulfate 90 Mcg 8 Gm Inhaler INHALE Q4H PRN Shortness Of Breath Albuterol/Ipratropium 3 ml 04/05/20 21:00 04/06/20 13:07 Albuterol/Iprat 2.5/0.5mg 3 Ml Ampul.Neb INHALE Not Given RQ6H [facility] Amlodipine Besylate 10 mg 04/06/20 12:44 04/06/20 13:42 Amlodipine Besylate 10 Mg Tablet PO 10 mg DAILY [facility] Administration Protocol Aspirin 81 mg 04/06/20 12:44 04/06/20 13:43 Aspirin 81 Mg Tab.Chew PO 81 mg DAILY [facility] Administration Aspirin 81 mg 04/06/20 12:44 Aspirin 81 Mg Tab.Chew PO DAILY [facility] Atorvastatin Calcium 80 mg 04/06/20 12:44 04/06/20 13:42 Atorvastatin Calcium 80 Mg Tablet PO 80 mg BEDTIME [facility] Administration Carvedilol 6.25 mg 04/05/20 21:00 04/06/20 12:30 Carvedilol 6.25 Mg Tablet PO 6.25 mg BID [facility] Administration Protocol Doxazosin Mesylate 12 mg 04/06/20 12:44 Doxazosin Mesylate 2 Mg Tablet PO DAILY [facility] Protocol Hydralazine HCl 100 mg 04/05/20 21:00 04/06/20 12:29 Hydralazine Hcl 50 Mg Tablet PO 100 mg BID [facility] Administration Dextrose/Sodium Chloride 1,000 mls @ 125 mls/hr 04/05/20 16:30 04/05/20 20:26 D51/2ns IVCONT 0 mls/hr .Q8H [facility] Infusion Piperacillin Sod/Tazobactam 50 mls @ 100 mls/hr 04/06/20 00:00 04/06/20 12:33 Sod 2.25 gm/ Sodium Chloride IV 100 mls/hr RQ8H [facility] Administration Insulin Human Lispro 0 unit 04/06/20 12:44 04/06/20 13:46 Insulin Lispro 100 Unit/Ml 3 Ml Vial SUBCUT Not Given QIDACHS [facility] Protocol Isosorbide Mononitrate 120 mg 04/07/20 09:00 Isosorbide Mononitrate 60 Mg Tab.Er.24h PO DAILY [facility] Levothyroxine Sodium 75 mcg 04/06/20 09:00 04/06/20 12:28 Levothyroxine Sodium 50 Mcg Tablet PO 75 mcg DAILY [facility] Administration Omeprazole 20 mg 04/06/20 12:44 04/06/20 13:43 Omeprazole 20 Mg Capsule.Dr PO 20 mg BID [facility] Administration Pharmacy Consult 1 each 04/05/20 20:18 Consult Rx Perform Med Rec MISCELLANE ONCE PRN Consult order Polyethylene Glycol 17 gm 04/06/20 12:44 Polyethylene Glycol 3350 17 Gm Powd.Pack PO DAILY PRN Constipation Sodium Chloride 3 ml 04/06/20 12:44 04/06/20 13:45 0.9 % Sodium Chloride Flush 3 Ml Syringe IVFLUSH 3 ml QSHIFT [facility] Administration Vitamin D 50 mcg 04/06/20 12:44 04/06/20 13:45 Cholecalciferol (Vitamin D3) 25 Mcg Tablet PO 50 mcg DAILY [facility] Administration Labs CBC & Chem 7: 04/06/20 06:12 04/06/20 06:12 Microbiology Microbiology Results: Microbiology 01/07/21 18:39 Urine clean catch - Clean Catch Midstream Urine Culture - Preliminary Gram negative tila Assessment and Plan (1) Acute alteration in mental status: Status: Acute (2) Hypoglycemia: Status: Acute (3) Pneumonia: Status: Acute (4) CKD (chronic kidney disease) stage 4, GFR 15-29 ml/min: Status: Acute (5) Positive occult stool blood test: Status: Acute (6) Hypothyroid: Status: Acute Assessment and Plan: 79 years old lady with past medical history of diabetes, CKD, CAD, COPD among others who presents to the hospital with altered mentation found to have low glucose level in 20s at home Metabolic encephalopathy, improving Secondary to acute hypoglycemic event, possible infection monitor mental status Acute hypoglycemia patient was on long-acting insulin and oral linagliptin, both were discontinued last admission hypoglycemia Keep on IVF for now hold insulin She might does not need any diabetic treatment given low HbA1c of 5 during last admission and significant hypoglycemia Aspiration pneumonia Reported in CXR continue IV Zosyn Pending cultures Hypothermia resolved Secondary to infection, hypoglycemia, hypothyroidism Treat underlying hypothyroidism Asymptomatic bacteriuria Pending urine culture Positive occult blood Stable hemoglobin Hold aspirin for now CKD a a monitor kidney function Hypertension Continue doxazosin, hydralazine, isosorbide, carvedilol HLD Continue statin Hypothyroidism TSH elevated to 20 Synthroid increased from 50-75 will need repeat TSH in 3-6 weeks DVT prophylaxis mechanical devices
[2020-04-06 17:48] LABS: Glucose, Whole Blood 137 mg/dL (60-115)
[2020-04-06 20:55] LABS: Glucose, Whole Blood 135 mg/dL (60-115)
[2020-04-07] VITALS (17 sets, daily range): BP systolic 147–179; BP diastolic 51–76; PULSE 60–74; RESP 18–20; TEMP 36.4–37.1; O2SAT 94–999
[2020-04-07] MEDS: Acetaminophen 325 MG TABLET 650 MG PO (01:57)
[2020-04-07] MEDS: Piperacillin Sodium/Tazobactam 2.25 GM in 0.9 % Sodium Chloride 50 ML IV ×3 (05:06→20:28)
[2020-04-07] MEDS: Dextrose 5 % and 0.45 % NaCl 1,000 ML 125 ML IVCONT (05:15)
--- NOTE | 2020-04-07 06:31 | PC.NURSE ---
Patient placed on O2 2L NC overnight . Patient normally wears CPAP at home at night for sleep apnea. O2 Sats 98%, patient resting comfortably.
[2020-04-07 06:45] LABS: MANUAL DIFF FLAG NO
[2020-04-07 06:56] LABS: Basophils Percent Auto 0.5 % (0-2); Eosinophils Absolute Auto 0.2 X10*3/uL (0.0-0.4); Eosinophils Percent Auto 2.7 % (0-4); Hematocrit 24.4 % (37-47); Hemoglobin 7.6 g/dl (12.0-16.0); Imm Gran Abs Auto 0.09 X10*3/uL (0.00-0.03); Imm Gran Pct Auto 1.4 % (0.0-0.4); Lymphocytes Absolute Auto 1.4 X10*3/uL (1.2-4.9); Lymphocytes Percent Auto 22.5 % (20-40); Mean Corpuscular HGB Conc 31.1 g/dl (31.0-35.0); Mean Corpuscular Hemoglobin 27.5 pg (27.0-33.0); Mean Corpuscular Volume 88.4 fL (80-98); Mean Platelet Volume 10.8 fL (9.4-12.3); Monocytes Absolute Auto 0.6 X10*3/uL (0.1-1.2); Monocytes Percent Auto 9.7 % (2-11); Neutrophils Percent Auto 63.2 % (45-73); Platelet Count 207 X10*3/uL (160-400); Red Blood Count 2.76 X10*6/uL (4.20-5.50); Red Cell Distribution Width 15.6 % (11.0-16.0); White Blood Count 6.3 X10*3/uL (4.8-10.8)
[2020-04-07 07:18] LABS: Anion Gap 12 (12-20); Blood Urea Nitrogen 23 mg/dL (9-16); Calcium 7.4 mg/dL (8.4-10.2); Carbon Dioxide 26 mmol/L (22-29); Chloride 105 mmol/L (96-108); Creatinine Clr Calc Pharmacy 22.4; Estimated Glomerular Filt Rate 26; Glucose Random 126 mg/dL (60-115); Sodium 138 mmol/L (135-145)
[2020-04-07] MEDS: Albuterol/Iprat 2.5/0.5MG 3 ML AMPUL.NEB INHALE ×2 (09:09→17:33)
[2020-04-07] MEDS: 0.9 % Sodium Chloride Flush 3 ML SYRINGE IVFLUSH ×3 (09:20→21:05)
[2020-04-07] MEDS: Doxazosin Mesylate 2 MG TABLET 12 MG PO (09:22)
[2020-04-07] MEDS: carvediloL 6.25 MG TABLET PO ×2 (09:24→20:27)
[2020-04-07] MEDS: hydrALAZINE HCl 50 MG TABLET 100 MG PO ×2 (09:24→20:28)
[2020-04-07] MEDS: Cholecalciferol (Vitamin D3) 25 MCG TABLET 50 MCG PO (09:24)
[2020-04-07] MEDS: Levothyroxine Sodium 50 MCG TABLET 75 MCG PO (09:25)
[2020-04-07] MEDS: Omeprazole 20 MG CAPSULE.DR PO ×2 (09:25→20:27)
[2020-04-07] MEDS: Isosorbide Mononitrate 60 MG TAB.ER.24H 120 MG PO (09:25)
[2020-04-07] MEDS: amLODIPine Besylate 10 MG TABLET PO (09:25)
--- NOTE | 2020-04-07 10:21 | P.CNGI_ITS ---
History of Present Illness Data of Consult Service Date: 04/07/20 Requesting physician: Zachery Villarreal Primary Care Provider: Unknown Physician HPI Reason for consult: Anemia, heme positive stools 79 YF with diabetes, CKD, CAD, COPD seen at [facility] on 04/05/20 with altered mentation with a low glucose level in 20s at home. EMS found her levels around 28 and treated her with IV and oral glucose replacement with good response. In the emergency she was found to be hypothermic requiring Belkys Hugger. Pt was admitted with suspected possible aspiration pneumonia and started on IV antibiotics. TSH found to be elevated with positive stool occult blood. Her H & H has been declining since admission. Patient admits to passing dark stools. Patient denies abdominal pain, heartburn, dysphagia, nausea or vomiting. She has a history of chronic constipation and denies recent change in bowel lr bits or noticing hematochezia or rectal bleeding PAST GI HISTORY BY REVIEW OF MEDICAL RECORDS: 06/2013 Pt had an EGD and Colonoscopy by Dr Chen for SUSAN: EGD showed minimal hiatal hernia and small bowel biopsies were obtained to check for celiac disease which were normal. Two 3-5 mm adenomatous polyps were removed from the AC, one TA from the TC and an 8-10 mm hyperplastic polyp was removed from the SC at 20 cms. Moderate sigmoid diverticulosis and small hemorrhoids were noted. Colon prep was excellent. Review of Systems Constitutional: Constitutional: Denies fever(s), Denies headache(s) and Denies weight loss Eyes: Eyes: Denies eye discharge and Denies irritation ENT: Reports Normal hearing present, Denies dysphagia, Denies dizziness and Denies headache(s) Cardiovascular: Cardiovascular: Denies chest pain, Denies leg edema, Reports dyspnea and Reports dyspnea on exertion Respiratory: Respiratory: Denies cough, Reports dyspnea and Reports dyspnea on exertion Gastrointestinal: Gastrointestinal: Denies abdominal pain, Denies change in bowel habits, Reports constipation, Denies dysphagia and Denies heartburn Genitourinary: Genitourinary: Denies difficulty voiding and Denies dysuria Musculoskeletal: Musculoskeletal: Denies back pain and Denies arthralgias Integumentary/Breasts: Skin/Breast: Denies pruritus, Denies rash and Denies jaundice Neurologic: Reports Normal hearing present, Reports confusion, Denies dizziness and Denies headache(s) Psychiatric: Psychiatric: Reports confusion Endocrine: Endocrine: Denies cold intolerance, Denies flushing and Denies heat intolerance PMFSH Past Medical History Medical History Acute on chronic kidney failure Acute UTI Anemia in chronic kidney disease Bronchitis CAD (coronary artery disease) Carotid stenosis, bilateral CKD (chronic kidney disease) stage 4, GFR 15-29 ml/min COPD (chronic obstructive pulmonary disease) Diabetes mellitus with chronic kidney disease, with long-term current use of insulin Dyslipidemia Gastritis GERD (gastroesophageal reflux disease) HTN (hypertension) Hypothyroid Left thalamic infarction Obesity RAISA (obstructive sleep apnea) Pulmonary nodule Sepsis Thyroid cancer Family History Family History Father CVD (cardiovascular disease) Mother CVD (cardiovascular disease) Brother CVD (cardiovascular disease) Parkinson disease Surgical History Surgical History H/O angioplasty H/O heart artery stent History of thyroidectomy Hx of appendectomy S/P JOHN-BSO (~1997) Social History Social History Household Members: Spouse Housing: Other Alcohol intake: never Smoking Status: Former smoker Second Hand Smoke Exposure: No service: No Current occupational status: retired Meds Allergies Allergy/AdvReac Type Severity Reaction Status Date / Time oxycodone Allergy Unknown rash Verified 04/04/20 10:11 Home Medications Medication Instructions Recorded Confirmed Type blood sugar diagnostic #10 ea 12/24/19 12/29/19 History lancets 33 gauge #100 ea 12/24/19 12/29/19 History pen needle, diabetic 32 gauge x #50 ea 12/24/19 12/29/19 History 5/32 ferrous gluconate 324 mg PO BID 12/29/19 04/05/20 History levothyroxine 50 mcg PO DAILY 12/29/19 04/05/20 History albuterol sulfate 90 mcg/actuation 2 puff INHALATION Q4H PRN 04/04/20 04/05/20 History aerosol inhaler aspirin 81 mg PO DAILY 04/05/20 04/05/20 History insulin aspart U-100 [Novolog 1 sliding scale dose SUBCUT 04/05/20 04/05/20 History U-100 Insulin aspart] USEASDIRECTD insulin degludec [Tresiba 46 unit SUBCUT DAILY 04/05/20 04/05/20 History FlexTouch U-200] ipratropium-albuterol [Combivent 1 puff INHALATION Q6H 04/05/20 04/05/20 History Respimat] linagliptin [Tradjenta] 5 mg PO DAILY 04/05/20 04/05/20 History polyethylene glycol 3350 [Miralax] 17 g PO DAILY PRN 04/05/20 04/05/20 History Physical Exam Vital Signs: Vital Signs: Last Vital Signs Temp 97.6 F 04/07/20 07:43 Pulse 68 04/07/20 09:25 Resp 18 04/07/20 08:25 BP 151/68 H 04/07/20 09:25 Pulse Ox 100 04/07/20 08:25 Body Mass Index 41.1 Const: General: confusion and ill appearing Nutritional Appearance: obese Orientation/consciousness: confusion Limitations: no limitations HENMT: Head: Yes normal to inspection Ears: hearing grossly normal bilaterally Mouth: Normal oral and palatal mucosa present Eyes: Sclerae: sclerae normal Pupils: Equal, round and reactive pupils present Neck: Neck: Yes normal visual inspection Chest: Chest palpation & inspection: normal inspection of the chest Resp: Effort & Inspection: normal respiratory effort Auscultation: rales (bilateral) Cardio: Palpation: normal PMI Rate: regular rate Rhythm: regular rhythm Heart sounds: S1 normal heart sound present, S2 normal heart sound present and no murmurs GI: Palpation (GI): Soft to palpation, nontender and No hepatosplenomegaly p resent Auscultation: normal bowel sounds Rectal Exam - Female: deferred Skin: General skin exam: no rashes or lesions noted Neuro: General: confusion Cranial nerves: Yes Equal, round and reactive pupils present and Yes Normal hearing present Extrem: General: Yes pedal edema Psych: Appearance: grossly normal Mental Status: mental status grossly normal Results Labs CBC & Chem 7: 04/09/20 05:33 04/09/20 05:33 Labs: Short CBC 04/07/20 Range/Units 05:32 WBC 6.3 (4.8-10.8) X10*3/uL Hgb 7.6 L (12.0-16.0) g/dl Hct 24.4 L (37-47) % Plt Count 207 (160-400) X10*3/uL BMP 04/07/20 05:32 Sodium 138 Potassium 5.0 Chloride 105 Carbon Dioxide 26 BUN 23 H Creatinine 1.85 H Calcium 7.4 L Microbiology Microbiology Results: Microbiology 04/05/20 18:39 Urine clean catch - Clean Catch Midstream Urine Culture - Final Enterobacter aerogenes 04/05/20 16:45 Blood - Arterial Blood Culture - Preliminary No growth after 24 hours. 04/05/20 16:44 Blood - Arterial Blood Culture - Preliminary No growth after 24 hours. Assessment and Plan (1) Iron deficiency anemia due to chronic blood loss: Status: Acute (2) RAISA (obstructive sleep apnea): Problem details: moderately severe RAISA on sleep study 02/2011 Status: Acute (3) Diabetes mellitus with chronic kidney disease, with long-term current use of insulin: Status: Acute (4) Pneumonia: Qualifiers: Aspiration pneumonia type: unspecified Laterality: bilateral Lung location: unspecified part of lung Pneumonia type: aspiration pneumonia Qualified Code(s): J69.0 - Pneumonitis due to inhalation of food and vomit Status: Acute 79 YF with diabetes, CKD, CAD, COPD, admitted with low glucose levels, hypothermia and aspiration pneumonia. Pt has a long standing chronic anemia likely a combination of anemia of chronic disease and iron deficiency. Her H & H has been declining since her hospitalization and blood transfusion is planned today. Stool hemoccults were positive on admission. Iron studies in the past were suggestive of iron deficciency anemia. No clear source of anemia was detected on past endoscopic evaluation in 2013 - a few small adenomatous polyps were removed. RECOMMENDATIONS: 1. Agree with blood transfusion today. 2. Monitor H & H daily. 3. I will schedule her for and Upper Endoscopy and Colonoscopy on 04/09/20. Both procedures and potential complications including bleeding, perforation, drug reaction and aspiration were reviewed with the patient who agreed to have the procedures.
[2020-04-07 11:50] LABS: Ferritin 119 ng/mL (10-250)
[2020-04-07 12:18] LABS: MANUAL DIFF FLAG NO
[2020-04-07 12:22] LABS: Basophils Percent Auto 0.4 % (0-2); Eosinophils Absolute Auto 0.2 X10*3/uL (0.0-0.4); Eosinophils Percent Auto 3.2 % (0-4); Hemoglobin 7.5 g/dl (12.0-16.0); Imm Gran Abs Auto 0.05 X10*3/uL (0.00-0.03); Lymphocytes Absolute Auto 1.1 X10*3/uL (1.2-4.9); Lymphocytes Percent Auto 20.2 % (20-40); Mean Corpuscular HGB Conc 31.3 g/dl (31.0-35.0); Mean Corpuscular Hemoglobin 27.6 pg (27.0-33.0); Mean Corpuscular Volume 88.2 fL (80-98); Mean Platelet Volume 10.1 fL (9.4-12.3); Monocytes Absolute Auto 0.5 X10*3/uL (0.1-1.2); Monocytes Percent Auto 9.9 % (2-11); Neutrophils Absolute Auto 3.4 X10*3/uL (2.0-8.3); Neutrophils Percent Auto 65.3 % (45-73); Platelet Count 207 X10*3/uL (160-400); Red Blood Count 2.72 X10*6/uL (4.20-5.50); Red Cell Distribution Width 15.4 % (11.0-16.0); White Blood Count 5.3 X10*3/uL (4.8-10.8)
[2020-04-07] MEDS: Furosemide 20 MG/2 ML VIAL IVPUSH (12:42)
[2020-04-07 12:49] LABS: Anion Gap 10 (12-20); Blood Urea Nitrogen 22 mg/dL (9-16); Calcium 7.4 mg/dL (8.4-10.2); Carbon Dioxide 27 mmol/L (22-29); Chloride 105 mmol/L (96-108); Estimated Glomerular Filt Rate 27; Glucose Random 155 mg/dL (60-115); Potassium 4.9 mmol/l (3.3-5.1); Sodium 137 mmol/L (135-145)
[2020-04-07] MEDS: Albuterol Sulfate 90 MCG 8 GM INHALER 2 PUFF INHALE (13:00)
--- NOTE | 2020-04-07 13:09 | P.PNIM_ITS ---
Subjective Subjective Date of Service: 04/07/20 Interval History: Patient seen and examined at bedside patient reported weakness Review of Systems No fever, chills or weakness No chest pain, palpitation No shortness of breath or coughing No abdominal pain, nausea or vomiting No urinary symptoms No any rash or wounds Neurologic Neurologic: Reports confusion Psychiatric Psychiatric: Reports confusion Physical Exam Vital Signs: Vital Signs: Last Vital Signs Temp 97.6 F 04/07/20 07:43 Pulse 64 04/07/20 13:03 Resp 18 04/07/20 08:25 BP 151/68 H 04/07/20 09:25 Pulse Ox 100 04/07/20 08:25 Body Mass Index 41.1 Const: General: confusion Orientation/consciousness: confusion Resp: Effort & Inspection: normal respiratory effort Cardio: Jugular venous distension: no JVD GI: Inspection: Yes normal to inspection Neuro: General: confusion Objective Data Current Medications Generic Name Dose Route Start Last Admin Trade Name Freq PRN Reason Stop Dose Admin Acetaminophen 650 mg 04/06/20 12:44 04/07/20 01:57 Acetaminophen 325 Mg Tablet PO 650 mg Q6H PRN Administration Pain, Mild (Pain Scale 1-3) Al Hydroxide/Mg Hydroxide 30 ml 04/06/20 12:44 Magnesium Hydrox/Alum Hydrox 30 Ml Oral.Susp PO Q4H PRN Heartburn/Nausea Albuterol Sulfate 2 puff 04/06/20 12:44 04/07/20 13:00 Albuterol Sulfate 90 Mcg 8 Gm Inhaler INHALE 2 puff Q4H PRN Administration Shortness Of Breath Albuterol/Ipratropium 3 ml 04/05/20 21:00 04/07/20 09:09 Albuterol/Iprat 2.5/0.5mg 3 Ml Ampul.Neb INHALE 3 ml RQ6H MORIAH Administration Amlodipine Besylate 10 mg 04/06/20 12:44 04/07/20 09:25 Amlodipine Besylate 10 Mg Tablet PO 10 mg DAILY MORIAH Administration Protocol Atorvastatin Calcium 80 mg 04/06/20 12:44 04/06/20 20:55 Atorvastatin Calcium 80 Mg Tablet PO 80 mg BEDTIME MORIAH Administration Carvedilol 6.25 mg 04/05/20 21:00 04/07/20 09:24 Carvedilol 6.25 Mg Tablet PO 6.25 mg BID MORIAH Administration Protocol Doxazosin Mesylate 12 mg 04/06/20 12:44 04/07/20 09:22 Doxazosin Mesylate 2 Mg Tablet PO 12 mg DAILY MORIAH Administration Protocol Hydralazine HCl 100 mg 04/05/20 21:00 04/07/20 09:24 Hydralazine Hcl 50 Mg Tablet PO 100 mg BID MORIAH Administration Piperacillin Sod/Tazobactam 50 mls @ 100 mls/hr 04/06/20 20:00 04/07/20 12:42 Sod 2.25 gm/ Sodium Chloride IV 100 mls/hr Q8H MORIAH Administration Isosorbide Mononitrate 120 mg 04/07/20 09:00 04/07/20 09:25 Isosorbide Mononitrate 60 Mg Tab.Er.24h PO 120 mg DAILY MORIAH Administration Levothyroxine Sodium 75 mcg 04/06/20 09:00 04/07/20 09:25 Levothyroxine Sodium 50 Mcg Tablet PO 75 mcg DAILY MORIAH Administration Omeprazole 20 mg 04/06/20 12:44 04/07/20 09:25 Omeprazole 20 Mg Capsule.Dr PO 20 mg BID [facility] Administration Pharmacy Consult 1 each 04/05/20 20:18 Consult Rx Perform Med Rec MISCELLANE ONCE PRN Consult order Polyethylene Glycol 17 gm 04/06/20 12:44 Polyethylene Glycol 3350 17 Gm Powd.Pack PO DAILY PRN Constipation Sodium Chloride 3 ml 04/06/20 12:44 04/07/20 09:20 0.9 % Sodium Chloride Flush 3 Ml Syringe IVFLUSH 3 ml QSHIFT [facility] Administration Vitamin D 50 mcg 04/06/20 12:44 04/07/20 09:24 Cholecalciferol (Vitamin D3) 25 Mcg Tablet PO 50 mcg DAILY MORIAH Administration Labs CBC & Chem 7: 04/07/20 11:59 04/07/20 11:59 Microbiology Microbiology Results: Microbiology 04/05/20 18:39 Urine clean catch - Clean Catch Midstream Urine Culture - Final Enterobacter aerogenes 04/05/20 16:45 Blood - Arterial Blood Culture - Preliminary No growth after 24 hours. 04/05/20 16:44 Blood - Arterial Blood Culture - Preliminary No growth after 24 hours. Assessment and Plan (1) Acute alteration in mental status: Status: Acute (2) Hypoglycemia: Status: Acute (3) Pneumonia: Status: Acute (4) CKD (chronic kidney disease) stage 4, GFR 15-29 ml/min: Status: Acute (5) Positive occult stool blood test: Status: Acute (6) Hypothyroid: Status: Acute Assessment and Plan: 79 years old lady with past medical history of diabetes, CKD, CAD, COPD among others who presents to the hospital with altered mentation found to have low glucose level in 20s at home Metabolic encephalopathy, improving Secondary to acute hypoglycemic event, possible infection monitor mental status Acute hypoglycemia resolved patient was on long-acting insulin and oral linagliptin, both were discontinued last admission for hypoglycemia hold insulin She might does not need any diabetic treatment given low HbA1c of 5 during last admission and significant hypoglycemia during this admission Aspiration pneumonia continue IV Zosyn Pending cultures Acute on chronic anemia stool for occult blood positive hemoglobin around 7.6 will transfuse 1 unit of PRBCs continue PPI hold aspirin seen by GI plan for EGD on Thursday wants respiratory status to be optimized Hypothermia resolved Secondary to infection, hypoglycemia, hypothyroidism Treat underlying hypothyroidism UTI on IV antibiotic urine culture grew Enterobacter CKD monitor kidney function Hypertension Continue doxazosin, hydralazine, isosorbide, carvedilol HLD Continue statin Hypothyroidism TSH elevated to 20 Synthroid increased from 50-75 will need repeat TSH in 3-6 weeks DVT prophylaxis mechanical devices
[2020-04-07 16:57] LABS: Glucose, Whole Blood 107 mg/dL (60-115)
[2020-04-07] MEDS: Atorvastatin Calcium 80 MG TABLET PO (20:27)
[2020-04-07 21:51] LABS: Glucose, Whole Blood 147 mg/dL (60-115)
[2020-04-08] VITALS (15 sets, daily range): BP systolic 156–170; BP diastolic 62–73; PULSE 63–72; RESP 18–20; TEMP 36.1–36.8; O2SAT 95–97
[2020-04-08] MEDS: Albuterol/Iprat 2.5/0.5MG 3 ML AMPUL.NEB INHALE ×4 (00:49→17:11)
[2020-04-08] MEDS: Piperacillin Sodium/Tazobactam 2.25 GM in 0.9 % Sodium Chloride 50 ML IV ×3 (03:56→21:08)
[2020-04-08 07:07] LABS: MANUAL DIFF FLAG NO
[2020-04-08 07:13] LABS: Basophils Percent Auto 0.5 % (0-2); Eosinophils Absolute Auto 0.2 X10*3/uL (0.0-0.4); Eosinophils Percent Auto 3.7 % (0-4); Hemoglobin 8.6 g/dl (12.0-16.0); Imm Gran Abs Auto 0.04 X10*3/uL (0.00-0.03); Imm Gran Pct Auto 0.7 % (0.0-0.4); Lymphocytes Absolute Auto 1.2 X10*3/uL (1.2-4.9); Lymphocytes Percent Auto 19.3 % (20-40); Mean Corpuscular HGB Conc 31.9 g/dl (31.0-35.0); Mean Corpuscular Hemoglobin 28.2 pg (27.0-33.0); Mean Corpuscular Volume 88.5 fL (80-98); Mean Platelet Volume 10.6 fL (9.4-12.3); Monocytes Absolute Auto 0.6 X10*3/uL (0.1-1.2); Monocytes Percent Auto 10.1 % (2-11); Neutrophils Absolute Auto 3.9 X10*3/uL (2.0-8.3); Neutrophils Percent Auto 65.7 % (45-73); Platelet Count 179 X10*3/uL (160-400); Red Blood Count 3.05 X10*6/uL (4.20-5.50)
[2020-04-08 07:34] LABS: Glucose, Whole Blood 104 mg/dL (60-115)
[2020-04-08] MEDS: Omeprazole 20 MG CAPSULE.DR PO ×2 (07:39→21:10)
[2020-04-08] MEDS: Isosorbide Mononitrate 60 MG TAB.ER.24H 120 MG PO (07:40)
[2020-04-08] MEDS: Cholecalciferol (Vitamin D3) 25 MCG TABLET 50 MCG PO (07:40)
[2020-04-08] MEDS: carvediloL 6.25 MG TABLET PO ×2 (07:40→21:09)
[2020-04-08] MEDS: hydrALAZINE HCl 50 MG TABLET 100 MG PO ×2 (07:40→21:09)
[2020-04-08] MEDS: amLODIPine Besylate 10 MG TABLET PO (07:40)
[2020-04-08] MEDS: Levothyroxine Sodium 50 MCG TABLET 75 MCG PO (07:41)
[2020-04-08] MEDS: 0.9 % Sodium Chloride Flush 3 ML SYRINGE IVFLUSH ×3 (07:41→21:10)
[2020-04-08] MEDS: Doxazosin Mesylate 2 MG TABLET 12 MG PO (07:41)
[2020-04-08 08:03] LABS: Anion Gap 10 (12-20); Blood Urea Nitrogen 23 mg/dL (9-16); Calcium 7.4 mg/dL (8.4-10.2); Carbon Dioxide 26 mmol/L (22-29); Chloride 106 mmol/L (96-108); Creatinine Clr Calc Pharmacy 21.9; Estimated Glomerular Filt Rate 26; Glucose Random 95 mg/dL (60-115); Potassium 4.4 mmol/l (3.3-5.1); Sodium 138 mmol/L (135-145)
[2020-04-08 11:32] LABS: Glucose, Whole Blood 154 mg/dL (60-115)
[2020-04-08] MEDS: bisacodyL 5 MG TABLET.DR 10 MG PO (13:17)
[2020-04-08] MEDS: polyethylene glycoL 3350 17 GM POWD.PACK 238 GM PO (13:55)
--- NOTE | 2020-04-08 15:38 | P.PNIM_ITS ---
Subjective Subjective Date of Service: 04/09/20 Interval History: Patient being followed for hypoglycemia and metabolic encephalopathy, this a.m. patient is awake alert offers no acute complaints has good appetite no nausea no vomiting, no confusion no acute issues overnight. Review of Systems General no headache no dizziness no fever chills. CVS no chest pain, no palpitation. Respiratory no cough, no sputum production, no respiratory distress. Gastrointestinal no nausea, no vomiting, no abdominal pain Physical Exam Vital Signs: Vital Signs: Last Vital Signs Temp 97.8 F 04/08/20 15:20 Pulse 67 04/08/20 15:20 Resp 19 04/08/20 15:20 BP 167/73 H 04/08/20 15:20 Pulse Ox 97 04/08/20 15:20 Body Mass Index 41.1 General patient resting comfortably, no acute distress. Neck is supple no JVD. CVS regular rate rhythm, Respiratory lungs clear to auscultation, no respiratory distress, no wheeze, no rhonchi. Gastrointestinal abdomen soft, nontender, bowel sounds audible, no guarding , no rigidity. Extremities no clubbing,no cyanosis or edema. Neuro nonfocal speech clear. Skin no rash Objective Data Current Medications Generic Name Dose Route Start Last Admin Trade Name Freq PRN Reason Stop Dose Admin Acetaminophen 650 mg 04/06/20 12:44 04/07/20 01:57 Acetaminophen 325 Mg Tablet PO 650 mg Q6H PRN Administration Pain, Mild (Pain Scale 1-3) Al Hydroxide/Mg Hydroxide 30 ml 04/06/20 12:44 Magnesium Hydrox/Alum Hydrox 30 Ml Oral.Susp PO Q4H PRN Heartburn/Nausea Albuterol Sulfate 2 puff 04/06/20 12:44 04/07/20 13:00 Albuterol Sulfate 90 Mcg 8 Gm Inhaler INHALE 2 puff Q4H PRN Administration Shortness Of Breath Albuterol/Ipratropium 3 ml 04/05/20 21:00 04/08/20 11:10 Albuterol/Iprat 2.5/0.5mg 3 Ml Ampul.Neb INHALE 3 ml RQ6H MORIAH Administration Amlodipine Besylate 10 mg 04/06/20 12:44 04/08/20 07:40 Amlodipine Besylate 10 Mg Tablet PO 10 mg DAILY MORIAH Administration Protocol Atorvastatin Calcium 80 mg 04/06/20 12:44 04/07/20 20:27 Atorvastatin Calcium 80 Mg Tablet PO 80 mg BEDTIME [facility] Administration Carvedilol 6.25 mg 04/05/20 21:00 04/08/20 07:40 Carvedilol 6.25 Mg Tablet PO 6.25 mg BID [facility] Administration Protocol Doxazosin Mesylate 12 mg 04/06/20 12:44 04/08/20 07:41 Doxazosin Mesylate 2 Mg Tablet PO 12 mg DAILY [facility] Administration Protocol Hydralazine HCl 100 mg 04/05/20 21:00 04/08/20 07:40 Hydralazine Hcl 50 Mg Tablet PO 100 mg BID [facility] Administration Piperacillin Sod/Tazobactam 50 mls @ 100 mls/hr 04/06/20 20:00 04/08/20 13:47 Sod 2.25 gm/ Sodium Chloride IV Infused Q8H [facility] Infusion Isosorbide Mononitrate 120 mg 04/07/20 09:00 04/08/20 07:40 Isosorbide Mononitrate 60 Mg Tab.Er.24h PO 120 mg DAILY [facility] Administration Levothyroxine Sodium 75 mcg 04/06/20 09:00 04/08/20 07:41 Levothyroxine Sodium 50 Mcg Tablet PO 75 mcg DAILY [facility] Administration Omeprazole 20 mg 04/06/20 12:44 04/08/20 07:39 Omeprazole 20 Mg Capsule. PO 20 mg BID [facility] Administration Pharmacy Consult 1 each 04/05/20 20:18 Consult Rx Perform Med Rec MISCELLANE ONCE PRN Consult order Polyethylene Glycol 17 gm 04/06/20 12:44 Polyethylene Glycol 3350 17 Gm Powd.Pack PO DAILY PRN Constipation Sodium Chloride 3 ml 04/06/20 12:44 04/08/20 13:56 0.9 % Sodium Chloride Flush 3 Ml Syringe IVFLUSH 3 ml QSHIFT [facility] Administration Vitamin D 50 mcg 04/06/20 12:44 04/08/20 07:40 Cholecalciferol (Vitamin D3) 25 Mcg Tablet PO 50 mcg DAILY [facility] Administration Labs CBC & Chem 7: 04/09/20 05:33 04/09/20 05:33 Microbiology Microbiology Results: Microbiology 04/05/20 16:45 Blood - Arterial Blood Culture - Preliminary No growth after 48 hours. 04/05/20 16:44 Blood - Arterial Blood Culture - Preliminary No growth after 48 hours. 04/05/20 18:39 Urine clean catch - Clean Catch Midstream Urine Culture - Final Enterobacter aerogenes Assessment and Plan (1) Acute alteration in mental status: Status: Acute (2) Hypoglycemia: Status: Acute (3) Pneumonia: Status: Acute (4) CKD (chronic kidney disease) stage 4, GFR 15-29 ml/min: Status: Acute (5) Positive occult stool blood test: Status: Acute (6) Hypothyroid: Status: Acute Assessment and Plan: 79 years old lady with past medical history of diabetes, CKD, CAD, COPD among others who presents to the hospital with altered mentation found to have low glucose level in 20s at home Metabolic encephalopathy, resolved was likely due to hypoglycemia Acute hypoglycemia resolved patient was on long-acting insulin and oral linagliptin, both were discontinued last admission for hypoglycemia , hemoglobin A1c 5 will discontinue all hypoglycemic medications upon discharge Aspiration pneumonia Patient denies shortness of breath, fever, cough or chest discomfort Normal WBC, no fevers on admission had hypothermia likely related to hypoglycemia, chest x-ray showed new ill-defined patchy air space opacities concerning for multifocal infection and new confluent retrocardiac left base consolidation question atelectasis or aspiration Blood cultures negative, urine culture grew Enterobacter aerogenes sensitive to ceftriaxone and Levaquin will discuss antibiotic coverage with ID continue IV Zosyn for now Acute on chronic anemia stool for occult blood positive, hemoglobin dropped to 7.6 yesterday therefore received 1 unit of packed RBC hematocrit improved continue PPI, hold aspirin seen by GI plan for EGD on Thursday Hypothermia resolved Secondary to infection, hypoglycemia,and hypothyroidism UTI on IV antibiotic urine culture grew Enterobacter CKD satge 4 At baseline, monitor kidney function Hypertension Continue doxazosin, hydralazine, isosorbide, and carvedilol BP elevated will jermaine erazo on current medication HLD Continue statin Hypothyroidism TSH elevated to 20, Synthroid increased from 50-75 , will repeat TSH in 6 weeks DVT prophylaxis mechanical devices
[2020-04-08 16:25] LABS: Glucose, Whole Blood 178 mg/dL (60-115)
[2020-04-08] MEDS: Acetaminophen 325 MG TABLET 650 MG PO (16:54)
[2020-04-08 19:49] LABS: Glucose, Whole Blood 135 mg/dL (60-115)
[2020-04-08] MEDS: Atorvastatin Calcium 80 MG TABLET PO (21:10)
[2020-04-08] MEDS: traMADoL HCL 50 MG TABLET PO (22:06)
[2020-04-09] VITALS (14 sets, daily range): BP systolic 129–171; BP diastolic 56–72; PULSE 65–72; RESP 15–20; TEMP 36.4–37.1; O2SAT 96–98; BMI 41.1
[2020-04-09] MEDS: Albuterol/Iprat 2.5/0.5MG 3 ML AMPUL.NEB INHALE ×2 (00:24→18:16)
[2020-04-09] MEDS: Piperacillin Sodium/Tazobactam 2.25 GM in 0.9 % Sodium Chloride 50 ML IV ×2 (04:41→14:28)
[2020-04-09 06:29] LABS: MANUAL DIFF FLAG NO
[2020-04-09 06:32] LABS: Basophils Percent Auto 0.5 % (0-2); Eosinophils Absolute Auto 0.3 X10*3/uL (0.0-0.4); Hematocrit 26.3 % (37-47); Hemoglobin 8.5 g/dl (12.0-16.0); Imm Gran Abs Auto 0.06 X10*3/uL (0.00-0.03); Imm Gran Pct Auto 1.1 % (0.0-0.4); Lymphocytes Absolute Auto 1.1 X10*3/uL (1.2-4.9); Lymphocytes Percent Auto 20.1 % (20-40); Mean Corpuscular HGB Conc 32.3 g/dl (31.0-35.0); Mean Corpuscular Hemoglobin 28.3 pg (27.0-33.0); Mean Corpuscular Volume 87.7 fL (80-98); Mean Platelet Volume 10.3 fL (9.4-12.3); Monocytes Absolute Auto 0.5 X10*3/uL (0.1-1.2); Monocytes Percent Auto 9.3 % (2-11); Neutrophils Absolute Auto 3.6 X10*3/uL (2.0-8.3); Platelet Count 190 X10*3/uL (160-400); Red Cell Distribution Width 14.6 % (11.0-16.0); White Blood Count 5.6 X10*3/uL (4.8-10.8)
[2020-04-09 07:12] LABS: Anion Gap 11 (12-20); Blood Urea Nitrogen 20 mg/dL (9-16); Calcium 7.6 mg/dL (8.4-10.2); Carbon Dioxide 26 mmol/L (22-29); Chloride 106 mmol/L (96-108); Creatinine Clr Calc Pharmacy 24.2; Estimated Glomerular Filt Rate 29; Glucose Random 92 mg/dL (60-115); Potassium 4.1 mmol/l (3.3-5.1); Sodium 139 mmol/L (135-145)
[2020-04-09 07:24] LABS: Glucose, Whole Blood 101 mg/dL (60-115)
[2020-04-09] MEDS: Doxazosin Mesylate 2 MG TABLET 12 MG PO (08:04)
[2020-04-09] MEDS: Levothyroxine Sodium 50 MCG TABLET 75 MCG PO (08:06)
[2020-04-09] MEDS: amLODIPine Besylate 10 MG TABLET PO (08:06)
[2020-04-09] MEDS: Cholecalciferol (Vitamin D3) 25 MCG TABLET 50 MCG PO (08:07)
[2020-04-09] MEDS: Omeprazole 20 MG CAPSULE.DR PO ×2 (08:07→19:51)
[2020-04-09] MEDS: hydrALAZINE HCl 50 MG TABLET 100 MG PO ×2 (08:07→19:52)
[2020-04-09] MEDS: carvediloL 6.25 MG TABLET PO ×2 (08:07→19:51)
[2020-04-09] MEDS: Isosorbide Mononitrate 60 MG TAB.ER.24H 120 MG PO (08:07)
[2020-04-09 10:58] LABS: Glucose, Whole Blood 101 mg/dL (60-115)
--- NOTE | 2020-04-09 11:34 | P.CONAN_ITS ---
[facility] Past Medical History Medical History Acute on chronic kidney failure Acute UTI Anemia in chronic kidney disease Bronchitis CAD (coronary artery disease) Carotid stenosis, bilateral CKD (chronic kidney disease) stage 4, GFR 15-29 ml/min COPD (chronic obstructive pulmonary disease) Diabetes mellitus with chronic kidney disease, with long-term current use of insulin Dyslipidemia Gastritis GERD (gastroesophageal reflux disease) HTN (hypertension) Hypothyroid Left thalamic infarction Obesity RAISA (obstructive sleep apnea) Pulmonary nodule Sepsis Thyroid cancer Family History Family History Father CVD (cardiovascular disease) Mother CVD (cardiovascular disease) Brother CVD (cardiovascular disease) Parkinson disease Surgical History Surgical History H/O angioplasty H/O heart artery stent History of thyroidectomy Hx of appendectomy S/P JOHN-BSO (~1997) Social History Social History Household Members: Spouse Housing: Other Alcohol intake: never Smoking Status: Former smoker Second Hand Smoke Exposure: No service: No Current occupational status: retired [employer] Allergies Allergy/AdvReac Type Severity Reaction Status Date / Time oxycodone Allergy Unknown rash Verified 04/04/20 10:11 Home Medications Medication Instructions Recorded Confirmed Type blood sugar diagnostic #10 12/24/19 12/29/19 History lancets 33 gauge #100 ea 12/24/19 12/29/19 History pen needle, diabetic 32 gauge x #50 ea 12/24/19 12/29/19 History ferrous gluconate 324 mg PO BID 12/29/19 04/05/20 History levothyroxine 50 mcg PO DAILY 12/29/19 04/05/20 History albuterol sulfate 90 mcg/actuation 2 puff INHALATION Q4H PRN 04/04/20 04/05/20 History aerosol inhaler aspirin 81 mg PO DAILY 04/05/20 04/05/20 History insulin aspart U-100 [Novolog 1 sliding scale dose SUBCUT 04/05/20 04/05/20 History U-100 Insulin aspart] USEASDIRECTD insulin degludec [Tresiba 46 unit SUBCUT DAILY 04/05/20 04/05/20 History FlexTouch U-200] ipratropium-albuterol [Combivent 1 puff INHALATION Q6H 04/05/20 04/05/20 History Respimat] linagliptin [Tradjenta] 5 mg PO DAILY 04/05/20 04/05/20 History polyethylene glycol 3350 [Miralax] 17 g PO DAILY PRN 04/05/20 04/05/20 History Exam Exam Date and Time: April 09, 2020 1134 Height,Weight and Vital Signs: Height 4 ft 9 in Weight 86.3 kg Last Vital Signs Temp 97.9 F 04/09/20 10:49 Pulse 66 04/09/20 10:49 Resp 18 04/09/20 10:49 BP 171/59 H 04/09/20 10:49 Pulse Ox 97 04/09/20 10:49 Pertinent Lab Results Pertinent Lab Results: Laboratory Tests 04/05/20 04/05/20 04/05/20 15:30 15:55 16:19 WBC RBC Hgb Hct MCV MCH MCHC RDW Plt Count MPV Immature Gran % (Auto) Neut % (Auto) Lymph % (Auto) [place] % (Auto) Eos % (Auto) Baso % (Auto) Lymph # (Auto) [place] # (Auto) Eos # (Auto) Baso # (Auto) Abs Immat Gran (auto) Absolute Neuts (auto) Absolute Nucleated RBC Nucleated RBC % (auto) PT INR APTT Sodium Potassium Chloride Carbon Dioxide Anion Gap BUN Creatinine Estim Creat Clear Calc Estimated GFR POC Glucose 100 50 L* 136 H Random Glucose Lactic Acid Calcium Ferritin Total Bilirubin AST ALT Alkaline Phosphatase Troponin I High Sens Total Protein Albumin Lipase TSH Urine Color Urine Appearance Urine pH Ur Specific [place] Urine Protein Urine Glucose (UA) Urine Ketones Urine Blood Urine Nitrite Ur Leukocyte Esterase Urine RBC Urine WBC Ur Squamous Epith Cells Urine Bacteria Stool Occult Blood COVID-19 (ADRIANA) COVID-19 Clin Com Blood Type Antibody Screen Crossmatch 04/05/20 04/05/20 04/05/20 16:44 16:44 16:44 WBC RBC Hgb Hct MCV MCH MCHC RDW Plt Count MPV Immature Gran % (Auto) Neut % (Auto) Lymph % (Auto) [place] % (Auto) Eos % (Auto) Baso % (Auto) Lymph # (Auto) [place] # (Auto) Eos # (Auto) Baso # (Auto) Abs Immat Gran (auto) Absolute Neuts (auto) Absolute Nucleated RBC Nucleated RBC % (auto) PT INR APTT Sodium Potassium Chloride Carbon Dioxide Anion Gap BUN Creatinine Estim Creat Clear Calc Estimated GFR POC Glucose Random Glucose Lactic Acid 1.0 Calcium Ferritin Total Bilirubin AST ALT Alkaline Phosphatase Troponin I High Sens 4.4 Total Protein Albumin Lipase TSH Urine Color Urine Appearance Urine pH Ur Specific [place] Urine Protein Urine Glucose (UA) Urine Ketones Urine Blood Urine Nitrite Ur Leukocyte Esterase Urine RBC Urine WBC Ur Squamous Epith Cells Urine Bacteria Stool Occult Blood COVID-19 (ADRIANA) Negative COVID-19 Clin Com See Note Blood Type Antibody Screen Crossmatch 04/05/20 04/05/20 04/05/20 16:44 16:45 16:45 WBC 6.4 RBC 3.08 L Hgb 8.7 L Hct 27.0 L MCV 87.7 MCH 28.2 MCHC 32.2 RDW 15.4 Plt Count 203 MPV 10.2 Immature Gran % (Auto) 0.5 H Neut % (Auto) 77.0 H Lymph % (Auto) 13.9 L [place] % (Auto) 7.2 Eos % (Auto) 1.2 Baso % (Auto) 0.2 Lymph # (Auto) 0.9 L [place] # (Auto) 0.5 Eos # (Auto) 0.1 Baso # (Auto) 0.0 Abs Immat Gran (auto) 0.03 Absolute Neuts (auto) 4.9 Absolute Nucleated RBC 0.000 Nucleated RBC % (auto) 0.0 PT 11.7 INR 1.0 APTT 41.2 H Sodium 138 Potassium 4.7 Chloride 105 Carbon Dioxide 27 Anion Gap 11 L BUN 25 H Creatinine 1.96 H Estim Creat Clear Calc 21.2 Estimated GFR 25 POC Glucose Random Glucose 100 Lactic Acid Calcium 7.9 L D Ferritin Total Bilirubin 0.4 AST 31 D ALT 18 Alkaline Phosphatase 106 D Troponin I High Sens Total Protein 5.3 L Albumin 3.1 L Lipase 73 TSH 20.49 H Urine Color Urine Appearance Urine pH Ur Specific [place] Urine Protein Urine Glucose (UA) Urine Ketones Urine Blood Urine Nitrite Ur Leukocyte Esterase Urine RBC Urine WBC Ur Squamous Epith Cells Urine Bacteria Stool Occult Blood COVID-19 (ADRIANA) COVID-19 Clin Com Blood Type Antibody Screen Crossmatch 04/05/20 04/05/20 04/05/20 16:59 17:19 18:20 WBC RBC Hgb Hct MCV MCH MCHC RDW Plt Count MPV Immature Gran % (Auto) Neut % (Auto) Lymph % (Auto) [place] % (Auto) Eos % (Auto) Baso % (Auto) Lymph # (Auto) [place] # (Auto) Eos # (Auto) Baso # (Auto) Abs Immat Gran (auto) Absolute Neuts (auto) Absolute Nucleated RBC Nucleated RBC % (auto) PT INR APTT Sodium Potassium Chloride Carbon Dioxide Anion Gap BUN Creatinine Estim Creat Clear Calc Estimated GFR POC Glucose 78 176 H Random Glucose Lactic Acid Calcium Ferritin Total Bilirubin AST ALT Alkaline Phosphatase Troponin I High Sens Total Protein Albumin Lipase TSH Urine Color STRAW Urine Appearance CLEAR Urine pH 6.0 Ur Specific [place] 1.025 Urine Protein 3+ H Urine Glucose (UA) NEG Urine Ketones NEG Urine Blood NEG Urine Nitrite NEG Ur Leukocyte Esterase NEG Urine RBC 0 Urine WBC 10-14 H Ur Squamous Epith Cells NONE Urine Bacteria 4+ Stool Occult Blood COVID-19 (ADRIANA) COVID-19 [employer] Blood Type Antibody Screen Crossmatch 04/05/20 04/05/20 04/05/20 19:36 19:45 21:23 WBC RBC Hgb Hct MCV MCH MCHC RDW Plt Count MPV Immature Gran % (Auto) Neut % (Auto) Lymph % (Auto) [place] % (Auto) Eos % (Auto) Baso % (Auto) Lymph # (Auto) [place] # (Auto) Eos # (Auto) Baso # (Auto) Abs Immat Gran (auto) Absolute Neuts (auto) Absolute Nucleated RBC Nucleated RBC % (auto) PT INR APTT Sodium Potassium Chloride Carbon Dioxide Anion Gap BUN Creatinine Estim Creat Clear Calc Estimated GFR POC Glucose 234 H 187 H Random Glucose Lactic Acid Calcium Ferritin Total Bilirubin AST ALT Alkaline Phosphatase Troponin I High Sens Total Protein Albumin Lipase TSH Urine Color Urine Appearance Urine pH Ur Specific [place] Urine Protein Urine Glucose (UA) Urine Ketones Urine Blood Urine Nitrite Ur Leukocyte Esterase Urine RBC Urine WBC Ur Squamous Epith Cells Urine Bacteria Stool Occult Blood POS COVID-19 (ADRIANA) COVID-19 [employer] Blood Type Antibody Screen Crossmatch 04/06/20 04/06/20 04/06/20 02:17 06:12 06:12 WBC 8.0 RBC 2.76 L Hgb 7.7 L Hct 24.0 L MCV 87.0 MCH 27.9 MCHC 32.1 RDW 15.2 Plt Count 199 MPV 9.8 Immature Gran % (Auto) Neut % (Auto) Lymph % (Auto) [place] % (Auto) Eos % (Auto) Baso % (Auto) Lymph # (Auto) [place] # (Auto) Eos # (Auto) Baso # (Auto) Abs Immat Gran (auto) Absolute Neuts (auto) Absolute Nucleated RBC 0.000 Nucleated RBC % (auto) 0.0 PT INR APTT Sodium 136 Potassium 4.8 Chloride 104 Carbon Dioxide 26 Anion Gap 11 L BUN 24 H Creatinine 1.89 H Estim Creat Clear Calc 21.9 Estimated GFR 26 POC Glucose 213 H Random Glucose 80 Lactic Acid Calcium 7.4 L D Ferritin Total Bilirubin AST ALT Alkaline Phosphatase Troponin I High Sens Total Protein Albumin Lipase TSH Urine Color Urine Appearance Urine pH Ur Specific [place] Urine Protein Urine Glucose (UA) Urine Ketones Urine Blood Urine Nitrite Ur Leukocyte Esterase Urine RBC Urine WBC Ur Squamous Epith Cells Urine Bacteria Stool Occult Blood COVID-19 (ADRIANA) COVID-Apptive Com Blood Type Antibody Screen Crossmatch 04/06/20 04/06/20 04/06/20 11:04 14:49 17:45 WBC RBC Hgb Hct MCV MCH MCHC RDW Plt Count MPV Immature Gran % (Auto) Neut % (Auto) Lymph % (Auto) [place] % (Auto) Eos % (Auto) Baso % (Auto) Lymph # (Auto) [place] # (Auto) Eos # (Auto) Baso # (Auto) Abs Immat Gran (auto) Absolute Neuts (auto) Absolute Nucleated RBC Nucleated RBC % (auto) PT INR APTT Sodium Potassium Chloride Carbon Dioxide Anion Gap BUN Creatinine Estim Creat Clear Calc Estimated GFR POC Glucose 115 165 H 137 H Random Glucose Lactic Acid Calcium Ferritin Total Bilirubin AST ALT Alkaline Phosphatase Troponin I High Sens Total Protein Albumin Lipase TSH Urine Color Urine Appearance Urine pH Ur Specific [place] Urine Protein Urine Glucose (UA) Urine Ketones Urine Blood Urine Nitrite Ur Leukocyte Esterase Urine RBC Urine WBC Ur Squamous Epith Cells Urine Bacteria Stool Occult Blood COVID-19 (ADRIANA) COVID-19 [employer] Blood Type Antibody Screen Crossmatch 04/06/20 04/07/20 04/07/20 20:44 05:32 05:32 WBC 6.3 RBC 2.76 L Hgb 7.6 L Hct 24.4 L MCV 88.4 MCH 27.5 MCHC 31.1 RDW 15.6 Plt Count 207 MPV 10.8 Immature Gran % (Auto) 1.4 H Neut % (Auto) 63.2 Lymph % (Auto) 22.5 [place] % (Auto) 9.7 Eos % (Auto) 2.7 Baso % (Auto) 0.5 Lymph # (Auto) 1.4 [place] # (Auto) 0.6 Eos # (Auto) 0.2 Baso # (Auto) 0.0 Abs Immat Gran (auto) 0.09 H Absolute Neuts (auto) 4.0 Absolute Nucleated RBC 0.000 Nucleated RBC % (auto) 0.0 PT INR APTT Sodium 138 Potassium 5.0 Chloride 105 Carbon Dioxide 26 Anion Gap 12 BUN 23 H Creatinine 1.85 H Estim Creat Clear Calc 22.4 Estimated GFR 26 POC Glucose 135 H Random Glucose 126 H D Lactic Acid Calcium 7.4 L Ferritin 119 Total Bilirubin AST ALT Alkaline Phosphatase Troponin I High Sens Total Protein Albumin Lipase TSH Urine Color Urine Appearance Urine pH Ur Specific [place] Urine Protein Urine Glucose (UA) Urine Ketones Urine Blood Urine Nitrite Ur Leukocyte Esterase Urine RBC Urine WBC Ur Squamous Epith Cells Urine Bacteria Stool Occult Blood COVID-19 (ADRIANA) COVID-19 Clin Com Blood Type Antibody Screen Crossmatch 04/07/20 04/07/20 04/07/20 08:44 11:59 11:59 WBC 5.3 RBC 2.72 L Hgb 7.5 L Hct 24.0 L MCV 88.2 MCH 27.6 MCHC 31.3 RDW 15.4 Plt Count 207 MPV 10.1 Immature Gran % (Auto) 1.0 H Neut % (Auto) 65.3 Lymph % (Auto) 20.2 [place] % (Auto) 9.9 Eos % (Auto) 3.2 Baso % (Auto) 0.4 Lymph # (Auto) 1.1 L [place] # (Auto) 0.5 Eos # (Auto) 0.2 Baso # (Auto) 0.0 Abs Immat Gran (auto) 0.05 H Absolute Neuts (auto) 3.4 Absolute Nucleated RBC 0.000 Nucleated RBC % (auto) 0.0 PT INR APTT Sodium 137 Potassium 4.9 Chloride 105 Carbon Dioxide 27 Anion Gap 10 L BUN 22 H Creatinine 1.80 H Estim Creat Clear Calc 23.0 Estimated GFR 27 POC Glucose Random Glucose 155 H Lactic Acid Calcium 7.4 L Ferritin Total Bilirubin AST ALT Alkaline Phosphatase Troponin I High Sens Total Protein Albumin Lipase TSH Urine Color Urine Appearance Urine pH Ur Specific [place] Urine Protein Urine Glucose (UA) Urine Ketones Urine Blood Urine Nitrite Ur Leukocyte Esterase Urine RBC Urine WBC Ur Squamous Epith Cells Urine Bacteria Stool Occult Blood COVID-19 (ADRIANA) COVID-19 [facility] Blood Type O Positive Antibody Screen NEGATIVE Crossmatch See Detail 04/07/20 04/07/20 04/08/20 16:46 21:15 05:34 WBC 6.0 RBC 3.05 L Hgb 8.6 L Hct 27.0 L MCV 88.5 MCH 28.2 MCHC 31.9 RDW 15.0 Plt Count 179 MPV 10.6 Immature Gran % (Auto) 0.7 H Neut % (Auto) 65.7 Lymph % (Auto) 19.3 L [place] % (Auto) 10.1 Eos % (Auto) 3.7 Baso % (Auto) 0.5 Lymph # (Auto) 1.2 [place] # (Auto) 0.6 Eos # (Auto) 0.2 Baso # (Auto) 0.0 Abs Immat Gran (auto) 0.04 H Absolute Neuts (auto) 3.9 Absolute Nucleated RBC 0.000 Nucleated RBC % (auto) 0.0 PT INR APTT Sodium Potassium Chloride Carbon Dioxide Anion Gap BUN Creatinine Estim Creat Clear Calc Estimated GFR POC Glucose 107 147 H Random Glucose Lactic Acid Calcium Ferritin Total Bilirubin AST ALT Alkaline Phosphatase Troponin I High Sens Total Protein Albumin Lipase TSH Urine Color Urine Appearance Urine pH Ur Specific [place] Urine Protein Urine Glucose (UA) Urine Ketones Urine Blood Urine Nitrite Ur Leukocyte Esterase Urine RBC Urine WBC Ur Squamous Epith Cells Urine Bacteria Stool Occult Blood COVID-19 (ADRIANA) COVID-19 [facility] Blood Type Antibody Screen Crossmatch 04/08/20 04/08/20 04/08/20 05:34 07:26 11:27 WBC RBC Hgb Hct MCV MCH MCHC RDW Plt Count MPV Immature Gran % (Auto) Neut % (Auto) Lymph % (Auto) [place] % (Auto) Eos % (Auto) Baso % (Auto) Lymph # (Auto) [place] # (Auto) Eos # (Auto) Baso # (Auto) Abs Immat Gran (auto) Absolute Neuts (auto) Absolute Nucleated RBC Nucleated RBC % (auto) PT INR APTT Sodium 138 Potassium 4.4 Chloride 106 Carbon Dioxide 26 Anion Gap 10 L BUN 23 H Creatinine 1.89 H Estim Creat Clear Calc 21.9 Estimated GFR 26 POC Glucose 104 154 H Random Glucose 95 D Lactic Acid Calcium 7.4 L Ferritin Total Bilirubin AST ALT Alkaline Phosphatase Troponin I High Sens Total Protein Albumin Lipase TSH Urine Color Urine Appearance Urine pH Ur Specific [place] Urine Protein Urine Glucose (UA) Urine Ketones Urine Blood Urine Nitrite Ur Leukocyte Esterase Urine RBC Urine WBC Ur Squamous Epith Cells Urine Bacteria Stool Occult Blood COVID-19 (ADRIANA) COVID-19 [employer] [facility] Blood Type Antibody Screen Crossmatch 04/08/20 04/08/20 04/09/20 16:18 19:42 05:33 WBC 5.6 RBC 3.00 L Hgb 8.5 L Hct 26.3 L MCV 87.7 MCH 28.3 MCHC 32.3 RDW 14.6 Plt Count 190 MPV 10.3 Immature Gran % (Auto) 1.1 H Neut % (Auto) 64.0 Lymph % (Auto) 20.1 [place] % (Auto) 9.3 Eos % (Auto) 5.0 H Baso % (Auto) 0.5 Lymph # (Auto) 1.1 L [place] # (Auto) 0.5 Eos # (Auto) 0.3 Baso # (Auto) 0.0 Abs Immat Gran (auto) 0.06 H Absolute Neuts (auto) 3.6 Absolute Nucleated RBC 0.000 Nucleated RBC % (auto) 0.0 PT INR APTT Sodium Potassium Chloride Carbon Dioxide Anion Gap BUN Creatinine Estim Creat Clear Calc Estimated GFR POC Glucose 178 H 135 H Random Glucose Lactic Acid Calcium Ferritin Total Bilirubin AST ALT Alkaline Phosphatase Troponin I High Sens Total Protein Albumin Lipase TSH Urine Color Urine Appearance Urine pH Ur Specific [place] Urine Protein Urine Glucose (UA) Urine Ketones Urine Blood Urine Nitrite Ur Leukocyte Esterase Urine RBC Urine WBC Ur Squamous Epith Cells Urine Bacteria Stool Occult Blood COVID-19 (ADRIANA) COVID-19 [employer] Com Blood Type Antibody Screen Crossmatch 04/09/20 04/09/20 04/09/20 05:33 07:14 10:55 WBC RBC Hgb Hct MCV MCH MCHC RDW Plt Count MPV Immature Gran % (Auto) Neut % (Auto) Lymph % (Auto) [place] % (Auto) Eos % (Auto) Baso % (Auto) Lymph # (Auto) [place] # (Auto) Eos # (Auto) Baso # (Auto) Abs Immat Gran (auto) Absolute Neuts (auto) Absolute Nucleated RBC Nucleated RBC % (auto) PT INR APTT Sodium 139 Potassium 4.1 Chloride 106 Carbon Dioxide 26 Anion Gap 11 L BUN 20 H Creatinine 1.71 H Estim Creat Clear Calc 24.2 Estimated GFR 29 POC Glucose 101 101 Random Glucose 92 Lactic Acid Calcium 7.6 L Ferritin Total Bilirubin AST ALT Alkaline Phosphatase Troponin I High Sens Total Protein Albumin Lipase TSH Urine Color Urine Appearance Urine pH Ur Specific [place] Urine Protein Urine Glucose (UA) Urine Ketones Urine Blood Urine Nitrite Ur Leukocyte Esterase Urine RBC Urine WBC Ur Squamous Epith Cells Urine Bacteria Stool Occult Blood COVID-19 (ADRIANA) COVID-19 Clin Com Blood Type Antibody Screen Crossmatch Airway Mallampati Class: II TM Dist: >3cm Neck ROM: Full Heart: [id number] Lungs: cta b/l Assessment and Plan Assessment Anesthesia Assessment: Anesthesia Plan Discussed and Chart Reviewed Final Anesthetic Review NPO: Yes ASA Class: IV Final Preanesthetic Review: No Changes in Pt Med Stat, Meds/Allgs Chart Reviewed, Consent Obtained/Reviewed and Anes Risks/Benef Reviewed Patient Risk: Intermediate Procedure Risk: Low Assessment/Block/Sedation in SS: Assess/Block/Sedation-SS Anesthetic Plan Anesthetic Plan: MAC: Disposition: Standard PACU
--- NOTE | 2020-04-09 11:36 | PM.OP ---
Brief Operative Note Date of Service: 04/09/20 Pre-op diagnosis: Iron def anemia, Heme positive stools Post-op diagnosis: other (Gastritis, Gastric polyp, colon polyps, diverticulosis and hemorrhoids) Procedure: FLEXIBLE TRANSORAL UPPER GASTROINTESTINAL ENDOSCOPY WITH BIOPSIES AND COLONOSCOPY TO CECUM WITH SNARE POLYPECTOMY UPPER ENDOSCOPY Consent: Indications for the procedure and potential complications of bleeding, perforation, reaction to medications and missed diagnosis were discussed with the patient and informed consent was obtained. Instrument: Olympus GIF H 190 mid size upper endoscope Monitoring: Vital signs and clinical assessment, continuous EKG monitoring, Pulse oximetry, Carbon Dioxide monitoring and blood pressure monitoring were done throughout the procedure. Procedure: The patient was placed in the left lateral decubitis position and pre-procedure medications were administered and a bite block was placed. The endoscope was inserted into the mouth and advanced under direct vision to the third part of duodenum. A careful inspection was made as the upper endoscope was withdrawn including a retroflexed examination of the proximal stomach; Findings and interventions are described below. Findings: Larynx: Normal Esophagus: GE junction at 36 cms. No esophagitis or Olsen's. Stomach: A 7-8 mm benign appearing polyp in the gastric body along the greater curve - biopsied. Mild gastric erythema with patchy black pigmentation. Biopsies were obtained. Grade 2 flap valve on retroflexed examination of the cardia. Duodenum: Normal bulb and descending duodenum. Biopsies were obtained from 3rd part of duodenum to check for celiac sprue. Intervention: Biopsies as noted above COLONOSCOPY PROCEDURE NOTE Consent: Indications for the procedure and potential complications of bleeding, perforation, reaction to medications and missed diagnosis were discussed with the patient and informed consent was obtained. Instrument: Olympus PCF H 190 L variable stiffness pediatric colonoscope Monitoring: Vital signs and clinical assessment, intermittent blood pressure monitoring, continuous EKG monitoring, Pulse oximetry and Carbon Dioxide monitoring were done throughout the procedure. Colon withdrawl time was [] minutes. Procedure: The patient was placed in the left lateral decubitis position and pre-procedure medications were administered. After a digital rectal examination of the ano-rectum, the video colonoscope was inserted into the rectum and advanced through the colon to the cecum. The colonoscope was slowly withdrawn in a retrograde panoramic fashion and the colon mucosa was carefully examined including a retroflexed view of the rectum. Findings and interventions are described below. Procedure Difficulty: [Without difficulty] [LLQ pressure applied to intubate the transverse colon/cecum] Findings: Terminal Ileum: Not evaluated Cecum: Normal Ascending Colon: Moderate diverticulosis Transverse Colon: Moderate diverticulosis Descending Colon: Moderate diverticulosis Sigmoid Colon: Severe diverticulosis with luminal narrowing Rectum: Normal Ano-rectum: Moderate internal hemorrhoids Colon preparation: Good after copious irrigation Impression and Post Procedure Diagnosis: Endoscopy Findings: STOMACH: Gastritis and benign appearing gastric polyp. DUODENUM: Normal - biopsies were obtained to check for celiac sprue Colonoscopy Findings: Two medium sized polyps removed Moderate to severe diverticulosis seen in the entire colon - left > right Moderate hemorrhoids on retroflexed exam. No clear source found for anemia - ? slow GI blood loss from colon polyps. Plan: Await pathology results. OK to discharge pt on PO iron once a day - if H & H remains stable and her respiratory status improves. Patient to schedule a FU appointment in the GI Clinic with Wang Lion M.D. If her anemia persists, I will schedule her for a [facility] Endoscopy. Repeat Colonoscopy interval based on path results - in 3 years if polyps are adenomatous and stop colon cancer screening if polyps are hyperplastic. Above findings were reviewed with the patient and colon polyps and diverticulosis handouts were given in the discharge area Surgeon: Wang Lion MD Anesthesia: MAC (hSerrie Anderson CRNA) Estimated blood loss (mL): 0 Pathology: other (A. Small bowel, B. Gastric antrum, C. Gastric polyp, D. SC polyps x 2) Condition: stable Disposition: PACU
--- NOTE | 2020-04-09 11:36 | MHC.SHP ---
Pre-Procedural Eval Section A The patient is an INPATIENT: Yes Changes since office visit: Yes New Medical Problems, Yes Changes in Medication and Yes Patient answered all questions; No Cold of Flu in the past 2 weeks The History & Physical has been completed within 30 days and I have reviewed it.: Yes Section B Chief Complaint: hypoglycemia aspiration pneumonia AMS Allergies: Allergies Allergy/AdvReac Type Severity Reaction Status Date / Time oxycodone Allergy Unknown rash Verified 04/04/20 10:11 Plan I have reviewed the history and physical and performed a pertinent physical examination on my patient. No changes have occurred unless specified.
[2020-04-09] MEDS: 0.9 % Sodium Chloride 500 ML 20 ML IVCONT (11:45)
[2020-04-09] MEDS: Acetaminophen 325 MG TABLET 650 MG PO (14:27)
--- NOTE | 2020-04-09 15:26 | MHC.CM.PN ---
per rounds no anticipated dc date at this time pt eval needed prior to dc
[2020-04-09 16:11] LABS: Glucose, Whole Blood 147 mg/dL (60-115)
--- NOTE | 2020-04-09 17:45 | P.PNIM_ITS ---
Subjective Subjective Date of Service: 04/10/20 Interval History: Patient offers no acute complaints, is scheduled for upper and lower endoscopy, no acute issues overnight. Review of Systems General no headache, no dizziness no fever chills. CVS no chest pain, no palpitation. Respiratory no cough, no sputum production no respiratory distress. Gastrointestinal no nausea , no vomiting, no abdominal pain Physical Exam Vital Signs: Vital Signs: Last Vital Signs Temp 97.5 F 04/09/20 15:17 Pulse 66 04/09/20 15:17 Resp 19 04/09/20 15:17 BP 167/72 H 04/09/20 15:17 Pulse Ox 96 04/09/20 15:17 Body Mass Index 41.1 Const: Other: General patient resting comfortably, no acute distress. Neck is supple no JVD. CVS regular rate rhythm, Respiratory lungs clear to auscultation, no respiratory distress, no wheeze, no rhonchi. Gastrointestinal abdomen soft, nontender, bowel sounds audible, no guarding , no rigidity. Extremities no clubbing,no cyanosis or edema. Neuro nonfocal speech clear. Skin no rash Objective Data Current Medications Generic Name Dose Route Start Last Admin Trade Name Freq PRN Reason Stop Dose Admin Acetaminophen 650 mg 04/06/20 12:44 04/09/20 14:27 Acetaminophen 325 Mg Tablet PO 650 mg Q6H PRN Administration Pain, Mild (Pain Scale 1-3) Al Hydroxide/Mg Hydroxide 30 ml 04/06/20 12:44 Magnesium Hydrox/Alum Hydrox 30 Ml Oral.Susp PO Q4H PRN Heartburn/Nausea Albuterol Sulfate 2 puff 04/06/20 12:44 04/07/20 13:00 Albuterol Sulfate 90 Mcg 8 Gm Inhaler INHALE 2 puff Q4H PRN Administration Shortness Of Breath Albuterol/Ipratropium 3 ml 04/05/20 21:00 04/09/20 11:01 Albuterol/Iprat 2.5/0.5mg 3 Ml Ampul.Neb INHALE Not Given RQ6H [facility] Amlodipine Besylate 10 mg 04/06/20 12:44 04/09/20 08:06 Amlodipine Besylate 10 Mg Tablet PO 10 mg DAILY [facility] Administration Protocol Atorvastatin Calcium 80 mg 04/06/20 12:44 04/08/20 21:10 Atorvastatin Calcium 80 Mg Tablet PO 80 mg BEDTIME [facility] Administration Carvedilol 6.25 mg 04/05/20 21:00 04/09/20 08:07 Carvedilol 6.25 Mg Tablet PO 6.25 mg BID [facility] Administration Protocol Doxazosin Mesylate 12 mg 04/06/20 12:44 04/09/20 08:04 Doxazosin Mesylate 2 Mg Tablet PO 12 mg DAILY [facility] Administration Protocol Hydralazine HCl 100 mg 04/05/20 21:00 04/09/20 08:07 Hydralazine Hcl 50 Mg Tablet PO 100 mg BID [facility] Administration Piperacillin Sod/Tazobactam 50 mls @ 100 mls/hr 04/06/20 20:00 04/09/20 15:37 Sod 2.25 gm/ Sodium Chloride IV Infused Q8H [facility] Infusion Sodium Chloride 500 mls @ 20 mls/hr 04/09/20 11:45 04/09/20 11:45 Ns IVCONT 20 mls/hr .Q24H [facility] Administration Isosorbide Mononitrate 120 mg 04/07/20 09:00 04/09/20 08:07 Isosorbide Mononitrate 60 Mg Tab.Er.24h PO 120 mg DAILY [facility] Administration Levothyroxine Sodium 75 mcg 04/06/20 09:00 04/09/20 08:06 Levothyroxine Sodium 50 Mcg Tablet PO 75 mcg DAILY [facility] Administration Omeprazole 20 mg 04/06/20 12:44 04/09/20 08:07 Omeprazole 20 Mg Capsule.Dr PO 20 mg BID [facility] Administration Ondansetron HCl 4 mg 04/09/20 11:36 Ondansetron Hcl 4 Mg/2 Ml Vial IVPUSH ONCE PRN Nausea and Vomiting Pharmacy Consult 1 each 04/05/20 20:18 Consult Rx Perform Med Rec MISCELLANE ONCE PRN Consult order Polyethylene Glycol 17 gm 04/06/20 12:44 Polyethylene Glycol 3350 17 Gm Powd.Pack PO DAILY PRN Constipation Sodium Chloride 3 ml 04/06/20 12:44 04/09/20 08:16 0.9 % Sodium Chloride Flush 3 Ml Syringe IVFLUSH Not Given QSHIFT [facility] Vitamin D 50 mcg 04/06/20 12:44 04/09/20 08:07 Cholecalciferol (Vitamin D3) 25 Mcg Tablet PO 50 mcg DAILY [facility] Administration Labs CBC & Chem 7: 04/10/20 04:28 04/10/20 04:28 Microbiology Microbiology Results: Microbiology 04/05/20 16:45 Blood - Arterial Blood Culture - Preliminary No growth after 48 hours. 04/05/20 16:44 Blood - Arterial Blood Culture - Preliminary No growth after 48 hours. 04/05/20 18:39 Urine clean catch - Clean Catch Midstream Urine Culture - Final Enterobacter aerogenes Assessment and Plan (1) Acute alteration in mental status: Status: Acute (2) Hypoglycemia: Status: Acute (3) Pneumonia: Status: Acute (4) CKD (chronic kidney disease) stage 4, GFR 15-29 ml/min: Status: Acute (5) Positive occult stool blood test: Status: Acute (6) Hypothyroid: Status: Acute Assessment and Plan: 79 years old lady with past medical history of diabetes, CKD, CAD, COPD among others who presents to the hospital with altered mentation found to have low glucose level in 20s at home Metabolic encephalopathy, resolved was likely due to hypoglycemia Acute hypoglycemia resolved patient was on long-acting insulin and oral linagliptin, both were discontinued last admission for hypoglycemia , questions was still taking, hemoglobin A1c 5 will discontinue all hypoglycemic medications upon discharge Abnormal chest x-ray Patient denies shortness of breath, fever, cough or chest discomfort Normal WBC, no fevers on admission had hypothermia likely related to hypoglycemia, chest x-ray showed new ill-defined patchy air space opacities concerning for multifocal infection and new confluent retrocardiac left base co nsolidation question atelectasis or aspiration Blood cultures negative, no evidence of aspiration pneumonia likely x-ray findings related to atelectasis Acute on chronic anemia stool for occult blood positive, hemoglobin dropped to 7.6 received 1 unit of packed RBC hematocrit improved continue PPI, hold aspirin patient underwent upper endoscopy that showed mild gastritis, and colonoscopy revealed 2 polyps removed, GI recommended to avoid aspirin and NSAIDs for 2 weeks Resume diet, CBC at a.m. Hypothermia resolved Secondary to infection, hypoglycemia,and hypothyroidism UTI urine culture grew Enterobacter sensitive to ceftriaxone will DC IV Zosyn and placed on by mouth Ceftin, patient afebrile with normal WBC count. CKD satge 4 At baseline, creatinine continue to trend down Hypertension Continue doxazosin, hydralazine, isosorbide, and carvedilol BP elevated question related to anxiety and due to high sodium content with IV Zosyn follow BP closely HLD Continue statin Hypothyroidism TSH elevated to 20, Synthroid increased from 50-75 , will repeat TSH in 6 weeks Disposition possible discharge in next 24 hours DVT prophylaxis mechanical devices
[2020-04-09] MEDS: 0.9 % Sodium Chloride Flush 3 ML SYRINGE IVFLUSH ×2 (18:16→19:54)
[2020-04-09] MEDS: Atorvastatin Calcium 80 MG TABLET PO (19:52)
[2020-04-09 19:59] LABS: Glucose, Whole Blood 148 mg/dL (60-115)
[2020-04-10] VITALS (18 sets, daily range): BP systolic 158–180; BP diastolic 54–85; PULSE 62–78; RESP 15–20; TEMP 36.3–37.1; O2SAT 94–100
[2020-04-10 04:45] LABS: MANUAL DIFF FLAG NO
[2020-04-10 04:52] LABS: Basophils Percent Auto 0.5 % (0-2); Eosinophils Absolute Auto 0.2 X10*3/uL (0.0-0.4); Eosinophils Percent Auto 4.1 % (0-4); Hematocrit 23.2 % (37-47); Hemoglobin 7.6 g/dl (12.0-16.0); Imm Gran Abs Auto 0.04 X10*3/uL (0.00-0.03); Imm Gran Pct Auto 0.7 % (0.0-0.4); Lymphocytes Absolute Auto 1.1 X10*3/uL (1.2-4.9); Lymphocytes Percent Auto 19.8 % (20-40); Mean Corpuscular HGB Conc 32.8 g/dl (31.0-35.0); Mean Corpuscular Volume 88.5 fL (80-98); Mean Platelet Volume 10.3 fL (9.4-12.3); Monocytes Absolute Auto 0.5 X10*3/uL (0.1-1.2); Monocytes Percent Auto 8.6 % (2-11); Neutrophils Absolute Auto 3.7 X10*3/uL (2.0-8.3); Neutrophils Percent Auto 66.3 % (45-73); Platelet Count 169 X10*3/uL (160-400); Red Blood Count 2.62 X10*6/uL (4.20-5.50); Red Cell Distribution Width 14.8 % (11.0-16.0); White Blood Count 5.6 X10*3/uL (4.8-10.8)
[2020-04-10 05:17] LABS: Anion Gap 10 (12-20); Blood Urea Nitrogen 18 mg/dL (9-16); Calcium 7.6 mg/dL (8.4-10.2); Carbon Dioxide 25 mmol/L (22-29); Chloride 108 mmol/L (96-108); Creatinine Clr Calc Pharmacy 24.8; Estimated Glomerular Filt Rate 30; Glucose Random 92 mg/dL (60-115); Potassium 4.1 mmol/l (3.3-5.1); Sodium 139 mmol/L (135-145)
[2020-04-10 07:25] LABS: Glucose, Whole Blood 90 mg/dL (60-115)
[2020-04-10] MEDS: Cholecalciferol (Vitamin D3) 25 MCG TABLET 50 MCG PO (08:21)
[2020-04-10] MEDS: Levothyroxine Sodium 50 MCG TABLET 75 MCG PO (08:22)
[2020-04-10] MEDS: Doxazosin Mesylate 2 MG TABLET 12 MG PO (08:22)
[2020-04-10] MEDS: hydrALAZINE HCl 50 MG TABLET 100 MG PO ×2 (08:22→21:43)
[2020-04-10] MEDS: Isosorbide Mononitrate 60 MG TAB.ER.24H 120 MG PO (08:23)
[2020-04-10] MEDS: 0.9 % Sodium Chloride Flush 3 ML SYRINGE IVFLUSH ×2 (08:24→16:59)
[2020-04-10] MEDS: Omeprazole 20 MG CAPSULE.DR PO ×2 (08:24→21:43)
[2020-04-10] MEDS: amLODIPine Besylate 10 MG TABLET PO (08:24)
[2020-04-10] MEDS: carvediloL 6.25 MG TABLET PO (08:24)
[2020-04-10 11:23] LABS: Glucose, Whole Blood 133 mg/dL (60-115)
[2020-04-10] MEDS: Albuterol/Iprat 2.5/0.5MG 3 ML AMPUL.NEB INHALE ×2 (11:28→17:31)
--- NOTE | 2020-04-10 14:49 | HO.POSTANES ---
Post Anesthesia Evaluation Post Anesthesia Evaluation Vital Signs: Vital Signs Temp Pulse Resp BP Pulse Ox 04/10/20 11:36 97 04/10/20 11:29 62 04/10/20 11:26 97.8 F 66 17 158/72 H 97 04/10/20 08:24 71 172/76 H 04/10/20 08:23 71 172/76 H 04/10/20 08:22 71 172/76 H 04/10/20 08:00 98.0 F 71 18 172/76 H 97 04/10/20 03:28 98.0 F 66 15 180/85 H 100 Anesthesia: Monitored Mental Status: Awake Pain Control: Satisfactory Nausea/Vomiting: None Hydration: Adequate Anesthesia-Related Issues: No Anes. Related Issues
--- NOTE | 2020-04-10 16:09 | P.PNIM_ITS ---
Subjective Subjective Date of Service: 04/10/20 Interval History: Patient being followed for anemia, patient feels tired otherwise denies any active GI bleed noted to have dark-colored stools for some time tolerating diet, no nausea no vomiting no other acute issues overnight but noted to have drop in hematocrit. Review of Systems General generalized weakness, no headache, no dizziness no fever chills. CVS no chest pain, no palpitation. Respiratory no cough no sputum production no respiratory distress. Gastrointestinal no nausea no vomiting, no abdominal pain Genitourinary does not have Harry catheter at home, ambulate to bathroom Physical Exam Vital Signs: Vital Signs: Last Vital Signs Temp 97.8 F 04/10/20 15:53 Pulse 64 04/10/20 15:53 Resp 17 04/10/20 15:53 BP 179/76 H 04/10/20 15:53 Pulse Ox 97 04/10/20 15:53 Body Mass Index 41.1 Const: Other: General patient resting comfortably, no acute distress. Neck is supple no JVD. CVS regular rate rhythm, Respiratory lungs clear to auscultation, no respiratory distress, no wheeze, no rhonchi. Gastrointestinal abdomen soft, nontender, bowel sounds audible, no guarding , no rigidity. Extremities no clubbing,no cyanosis or edema. Neuro nonfocal speech clear. Skin pale color, no rash Objective Data Current Medications Generic Name Dose Route Start Last Admin Trade Name Freq PRN Reason Stop Dose Admin Acetaminophen 650 mg 04/06/20 12:44 04/09/20 14:27 Acetaminophen 325 Mg Tablet PO 650 mg Q6H PRN Administration Pain, Mild (Pain Scale 1-3) Al Hydroxide/Mg Hydroxide 30 ml 04/06/20 12:44 Magnesium Hydrox/Alum Hydrox 30 Ml Oral.Susp PO Q4H PRN Heartburn/Nausea Albuterol Sulfate 2 puff 04/06/20 12:44 04/07/20 13:00 Albuterol Sulfate 90 Mcg 8 Gm Inhaler INHALE 2 puff Q4H PRN Administration Shortness Of Breath Albuterol/Ipratropium 3 ml 04/05/20 21:00 04/10/20 11:28 Albuterol/Iprat 2.5/0.5mg 3 Ml Ampul.Neb INHALE 3 ml RQ6H [facility] Administration Amlodipine Besylate 10 mg 04/06/20 12:44 04/10/20 08:24 Amlodipine Besylate 10 Mg Tablet PO 10 mg DAILY [facility] Administration Protocol Atorvastatin Calcium 80 mg 04/06/20 12:44 04/09/20 19:52 Atorvastatin Calcium 80 Mg Tablet PO 80 mg BEDTIME [facility] Administration Carvedilol 6.25 mg 04/05/20 21:00 04/10/20 08:24 Carvedilol 6.25 Mg Tablet PO 6.25 mg BID [facility] Administration Protocol Cefuroxime Axetil 250 mg 04/09/20 20:00 04/10/20 08:22 Cefuroxime Axetil 250 Mg Tablet PO 250 mg Q12H [facility] Administration Doxazosin Mesylate 12 mg 04/06/20 12:44 04/10/20 08:22 Doxazosin Mesylate 2 Mg Tablet PO 12 mg DAILY [facility] Administration Protocol Hydralazine HCl 100 mg 04/05/20 21:00 04/10/20 08:22 Hydralazine Hcl 50 Mg Tablet PO 100 mg BID [facility] Administration Sodium Chloride 500 mls @ 20 mls/hr 04/09/20 11:45 04/10/20 12:52 Ns IVCONT Infused .Q24H [facility] Infusion Isosorbide Mononitrate 120 mg 04/07/20 09:00 04/10/20 08:23 Isosorbide Mononitrate 60 Mg Tab.Er.24h PO 120 mg DAILY [facility] Administration Levothyroxine Sodium 75 mcg 04/06/20 09:00 04/10/20 08:22 Levothyroxine Sodium 50 Mcg Tablet PO 75 mcg DAILY [facility] Administration Omeprazole 20 mg 04/06/20 12:44 04/10/20 08:24 Omeprazole 20 Mg Capsule.Dr PO 20 mg BID [facility] Administration Ondansetron HCl 4 mg 04/09/20 11:36 Ondansetron Hcl 4 Mg/2 Ml Vial IVPUSH ONCE PRN Nausea and Vomiting Pharmacy Consult 1 each 04/05/20 20:18 Consult Rx Perform Med Rec MISCELLANE ONCE PRN Consult order Polyethylene Glycol 17 gm 04/06/20 12:44 Polyethylene Glycol 3350 17 Gm Powd.Pack PO DAILY PRN Constipation Sodium Chloride 3 ml 04/06/20 12:44 04/10/20 08:24 0.9 % Sodium Chloride Flush 3 Ml Syringe IVFLUSH 3 ml QSHIFT [facility] Administration Vitamin D 50 mcg 04/06/20 12:44 04/10/20 08:21 Cholecalciferol (Vitamin D3) 25 Mcg Tablet PO 50 mcg DAILY [facility] Administration Labs CBC & Chem 7: 04/10/20 04:28 04/10/20 04:28 Microbiology Microbiology Results: Microbiology 04/05/20 16:45 Blood - Arterial Blood Culture - Preliminary No growth after 48 hours. 04/05/20 16:44 Blood - Arterial Blood Culture - Preliminary No growth after 48 hours. 04/05/20 18:39 Urine clean catch - Clean Catch Midstream Urine Culture - Final Enterobacter aerogenes Assessment and Plan (1) Acute alteration in mental status: Status: Acute (2) Hypoglycemia: Status: Acute (3) Pneumonia: Status: Acute (4) CKD (chronic kidney disease) stage 4, GFR 15-29 ml/min: Status: Acute (5) Positive occult stool blood test: Status: Acute (6) Hypothyroid: Status: Acute Assessment and Plan: 79 years old lady with past medical history of diabetes, CKD, CAD, COPD among others who presents to the hospital with altered mentation found to have low glucose level in 20s at home Metabolic encephalopathy, resolved was likely due to hypoglycemia Acute hypoglycemia resolved patient was on long-acting insulin and oral linagliptin, both were discontinued last admission for hypoglycemia , questions was still taking, hemoglobin A1c 5 will discontinue all hypoglycemic medications upon discharge Abnormal chest x-ray Patient denies shortness of breath, fever, cough or chest discomfort Normal WBC, no fevers on admission had hypothermia likely related to hypoglycemi a, chest x-ray showed new ill-defined patchy air space opacities concerning for multifocal infection and new confluent retrocardiac left base consolidation question atelectasis or aspiration Blood cultures negative, no evidence of aspiration pneumonia likely x-ray findings related to atelectasis Acute on chronic anemia patient is status post both upper and lower endoscopy and no source of bleeding found patient noted to have drop in hematocrit again this morning therefore will transfuse 1 more unit of packed RBC case discussed with Dr. Lion if patient hematocrit continue to drop then she will arrange for a video capsule study, strongly recommend to abstain from aspirin and NSAID continue PPI Hypothermia resolved Secondary to infection, hypoglycemia,and hypothyroidism UTI urine culture grew Enterobacter sensitive to ceftriaxone will DC IV Zosyn and placed on by mouth Ceftin, patient afebrile with normal WBC count. DC Harry catheter CKD satge 4 At baseline, creatinine continue to trend down Hypertension Continue doxazosin, hydralazine, isosorbide, and carvedilol BP remains elevated will increase dose of coreg follow BP closely HLD Continue statin Hypothyroidism TSH elevated to 20, Synthroid increased from 50-75 , will repeat TSH in 6 weeks Disposition possible discharge in next 24 hours, out of bed to chair and ambulate as tolerated DVT prophylaxis mechanical devices
[2020-04-10 16:52] LABS: Glucose, Whole Blood 104 mg/dL (60-115)
[2020-04-10 20:42] LABS: Glucose, Whole Blood 138 mg/dL (60-115)
[2020-04-10] MEDS: Atorvastatin Calcium 80 MG TABLET PO (21:42)
[2020-04-10] MEDS: carvediloL 12.5 MG TABLET PO (21:43)
--- NOTE | 2020-04-10 22:24 | PC.NURSE ---
per macedo catheter to be removed. macedo removed at 1930. Patient DTV 04/11/20 at 0130.
[2020-04-11] VITALS (8 sets, daily range): BP systolic 165–184; BP diastolic 72–79; PULSE 60–78; RESP 18–25; TEMP 36.7–37; O2SAT 94–97
[2020-04-11] MEDS: 0.9 % Sodium Chloride Flush 3 ML SYRINGE IVFLUSH ×4 (00:15→21:41)
[2020-04-11 06:23] LABS: MANUAL DIFF FLAG NO
[2020-04-11 06:39] LABS: Basophils Percent Auto 0.5 % (0-2); Eosinophils Absolute Auto 0.2 X10*3/uL (0.0-0.4); Eosinophils Percent Auto 3.3 % (0-4); Hematocrit 29.9 % (37-47); Hemoglobin 9.7 g/dl (12.0-16.0); Imm Gran Abs Auto 0.03 X10*3/uL (0.00-0.03); Imm Gran Pct Auto 0.5 % (0.0-0.4); Lymphocytes Absolute Auto 1.3 X10*3/uL (1.2-4.9); Lymphocytes Percent Auto 23.4 % (20-40); Mean Corpuscular HGB Conc 32.4 g/dl (31.0-35.0); Mean Corpuscular Hemoglobin 28.9 pg (27.0-33.0); Mean Platelet Volume 10.5 fL (9.4-12.3); Monocytes Absolute Auto 0.6 X10*3/uL (0.1-1.2); Monocytes Percent Auto 9.8 % (2-11); Neutrophils Absolute Auto 3.6 X10*3/uL (2.0-8.3); Neutrophils Percent Auto 62.5 % (45-73); Platelet Count 174 X10*3/uL (160-400); Red Blood Count 3.36 X10*6/uL (4.20-5.50); Red Cell Distribution Width 14.3 % (11.0-16.0); White Blood Count 5.7 X10*3/uL (4.8-10.8)
[2020-04-11 07:17] LABS: Anion Gap 12 (12-20); Blood Urea Nitrogen 19 mg/dL (9-16); Calcium 7.8 mg/dL (8.4-10.2); Carbon Dioxide 23 mmol/L (22-29); Chloride 108 mmol/L (96-108); Creatinine Clr Calc Pharmacy 24.4; Estimated Glomerular Filt Rate 29; Glucose Random 87 mg/dL (60-115); Potassium 4.2 mmol/l (3.3-5.1); Sodium 139 mmol/L (135-145)
[2020-04-11 07:46] LABS: Glucose, Whole Blood 94 mg/dL (60-115)
[2020-04-11] MEDS: hydrALAZINE HCl 25 MG TABLET 100 MG PO ×3 (08:13→21:41)
[2020-04-11] MEDS: Doxazosin Mesylate 2 MG TABLET 12 MG PO (08:14)
[2020-04-11] MEDS: Omeprazole 20 MG CAPSULE.DR PO ×2 (08:15→21:41)
[2020-04-11] MEDS: Isosorbide Mononitrate 60 MG TAB.ER.24H 120 MG PO (08:15)
[2020-04-11] MEDS: Levothyroxine Sodium 50 MCG TABLET 75 MCG PO (08:15)
[2020-04-11] MEDS: amLODIPine Besylate 10 MG TABLET PO (08:15)
[2020-04-11] MEDS: carvediloL 12.5 MG TABLET 6.25 MG PO ×2 (08:16→21:40)
[2020-04-11] MEDS: Cholecalciferol (Vitamin D3) 25 MCG TABLET 50 MCG PO (08:16)
[2020-04-11] MEDS: Albuterol/Iprat 2.5/0.5MG 3 ML AMPUL.NEB INHALE ×2 (08:32→20:01)
[2020-04-11 11:53] LABS: Glucose, Whole Blood 150 mg/dL (60-115)
--- NOTE | 2020-04-11 14:16 | HO.PM.IMPN ---
Subjective Subjective Date of Service: 04/12/20 Interval History: Patient complaining of a stuffy nose with difficulty in breathing complaining of generalized weakness has not ambulated much since admission but refusing to go to rehab repeat hematocrit improved to 29.9, no active bleeding noted, blood pressure remains elevated. Review of Systems General generalized weakness, no headache, no dizziness no fever chills. CVS no chest pain, no palpitation. Respiratory stuffy nose, no cough, no sputum production no respiratory distress. Gastrointestinal no hematemesis no melena Physical Exam Vital Signs: Vital Signs: Last Vital Signs Temp 98.2 F 04/11/20 12:00 Pulse 65 04/11/20 12:00 Resp 22 H 04/11/20 12:00 BP 165/72 H 04/11/20 12:00 Pulse Ox 97 04/11/20 12:00 Body Mass Index 41.1 General sitting on recliner no acute distress Neck is supple no JVD. CVS regular rate rhythm, Respiratory lungs diminished breath sounds, , no respiratory distress, no wheeze, no rhonchi. Gastrointestinal abdomen soft, nontender, bowel sounds audible, no guarding , no rigidity. Extremities no edema. Neuro nonfocal . Skin pale color, no rash Objective Data Current Medications Generic Name Dose Route Start Last Admin Trade Name Freq PRN Reason Stop Dose Admin Acetaminophen 650 mg 04/06/20 12:44 04/09/20 14:27 Acetaminophen 325 Mg Tablet PO 650 mg Q6H PRN Administration Pain, Mild (Pain Scale 1-3) Al Hydroxide/Mg Hydroxide 30 ml 04/06/20 12:44 Magnesium Hydrox/Alum Hydrox 30 Ml Oral.Susp PO Q4H PRN Heartburn/Nausea Albuterol Sulfate 2 puff 04/06/20 12:44 04/07/20 13:00 Albuterol Sulfate 90 Mcg 8 Gm Inhaler INHALE 2 puff Q4H PRN Administration Shortness Of Breath Albuterol/Ipratropium 3 ml 04/05/20 21:00 04/11/20 08:32 Albuterol/Iprat 2.5/0.5mg 3 Ml Ampul.Neb INHALE 3 ml RQ6H [facility] Administration Amlodipine Besylate 10 mg 04/06/20 12:44 04/11/20 08:15 Amlodipine Besylate 10 Mg Tablet PO 10 mg DAILY [facility] Administration Protocol Atorvastatin Calcium 80 mg 04/06/20 12:44 04/10/20 21:42 Atorvastatin Calcium 80 Mg Tablet PO 80 mg BEDTIME [facility] Administration Carvedilol 6.25 mg 04/11/20 09:00 04/11/20 08:16 Carvedilol 12.5 Mg Tablet PO 6.25 mg BID [facility] Administration Protocol Cefuroxime Axetil 250 mg 04/09/20 20:00 04/11/20 08:15 Cefuroxime Axetil 250 Mg Tablet PO 250 mg Q12H [facility] Administration Doxazosin Mesylate 12 mg 04/06/20 12:44 04/11/20 08:14 Doxazosin Mesylate 2 Mg Tablet PO 12 mg DAILY [facility] Administration Protocol Hydralazine HCl 100 mg 04/11/20 09:00 04/11/20 08:13 Hydralazine Hcl 25 Mg Tablet PO 100 mg TID [facility] Administration Sodium Chloride 500 mls @ 20 mls/hr 04/09/20 11:45 04/11/20 11:48 Ns IVCONT Not Given .Q24H [facility] Isosorbide Mononitrate 120 mg 04/07/20 09:00 04/11/20 08:15 Isosorbide Mononitrate 60 Mg Tab.Er.24h PO 120 mg DAILY [facility] Administration Levothyroxine Sodium 75 mcg 04/06/20 09:00 04/11/20 08:15 Levothyroxine Sodium 50 Mcg Tablet PO 75 mcg DAILY [facility] Administration Omeprazole 20 mg 04/06/20 12:44 04/11/20 08:15 Omeprazole 20 Mg Capsule.Dr PO 20 mg BID [facility] Administration Ondansetron HCl 4 mg 04/09/20 11:36 Ondansetron Hcl 4 Mg/2 Ml Vial IVPUSH ONCE PRN Nausea and Vomiting Pharmacy Consult 1 each 04/05/20 20:18 Consult Rx Perform Med Rec MISCELLANE ONCE PRN Consult order Polyethylene Glycol 17 gm 04/06/20 12:44 Polyethylene Glycol 3350 17 Gm Powd.Pack PO DAILY PRN Constipation Sodium Chloride 3 ml 04/06/20 12:44 04/11/20 08:23 0.9 % Sodium Chloride Flush 3 Ml Syringe IVFLUSH 3 ml QSHIFT [facility] Administration Sodium Chloride 1 spray 04/11/20 10:24 Sodium Chloride 0.65 % Nasal 44 Ml Sprbtl NOSTRIL-B Q1H PRN Dry Nasal Passages Vitamin D 50 mcg 04/06/20 12:44 04/11/20 08:16 Cholecalciferol (Vitamin D3) 25 Mcg Tablet PO 50 mcg DAILY [facility] Administration Labs CBC & Chem 7: 04/12/20 05:15 04/11/20 05:13 Microbiology Microbiology Results: Microbiology 04/05/20 16:45 Blood - Arterial Blood Culture - Final No growth after 5 days. 04/05/20 16:44 Blood - Arterial Blood Culture - Final No growth after 5 days. 04/05/20 18:39 Urine clean catch - Clean Catch Midstream Urine Culture - Final Enterobacter aerogenes Assessment and Plan (1) Acute alteration in mental status: Status: Acute (2) Hypoglycemia: Status: Acute (3) Pneumonia: Status: Acute (4) CKD (chronic kidney disease) stage 4, GFR 15-29 ml/min: Status: Acute (5) Positive occult stool blood test: Status: Acute (6) Hypothyroid: Status: Acute Assessment and Plan: 79 years old lady with past medical history of diabetes, CKD, CAD, COPD among others who presents to the hospital with altered mentation found to have low glucose level in 20s at home Metabolic encephalopathy, resolved was likely due to hypoglycemia Acute hypoglycemia resolved patient was on long-acting insulin and oral linagliptin, both were discontinued last admission for hypoglycemia , questions was still taking, hemoglobin A1c 5 will discontinue all hypoglycemic medications upon discharge Abnormal chest x-ray Patient denies shortness of breath, fever, cough or chest discomfort Normal WBC, no fevers on admission had hypothermia likely related to hypoglycemia, chest x-ray showed new ill-defined patchy air space opacities concerning for multifocal infection and new confluent retrocardiac left base consolidation question atelectasis or aspiration Blood cultures negative, no evidence of aspiration pneumonia likely x-ray findings related to atelectasis Acute on chronic anemia patient is status post both upper and lower endoscopy and no source of bleeding found patient noted to have drop in hematocrit postprocedure this for received 1 unit of packed RBC repeat hematocrit has improved patient noted to have no active GI bleed, will recheck hematocrit at a.m. if remains stable then will discharge patient home to have outpatient follow-up with Dr. Lion, strongly recommend to abstain from aspirin and NSAID ,continue PPI Hypothermia resolved Secondary to infection, hypoglycemia,and hypothyroidism UTI urine culture grew Enterobacter sensitive to ceftriaxone will DC IV Zosyn and placed on by mouth Ceftin day 08/03, patient afebrile with normal WBC count. DC Harry catheter CKD satge 4 At baseline, creatinine continue to trend down. Hypertension Continue doxazosin, hydralazine, isosorbide, and carvedilol BP remains elevated will increase dose of hydralazine 100 mg t.i.d. follow BP closely, will check manual BP HLD Continue statin Hypothyroidism TSH elevated to 20.49 on 04/05/20, Synthroid increased from 50-75 , will repeat TSH in 6 weeks COPD/obstructive sleep apnea continue updraft treatment, at home is on Combivent Disposition possible discharge in next 24 hours, patient seen by Physical therapy and they are recommending home PT encourage out of bed to chair and ambulation tid while in hospital DVT prophylaxis mechanical devices
--- NOTE | 2020-04-11 14:23 | MHC.CM.PN ---
possible dc today waiting to hear from gastrenterologist pt does not wnt to go to rehab no matter the outcome of the pt eval
[2020-04-11] MEDS: Ferrous Sulfate 324 MG TABLET.DR PO (16:13)
[2020-04-11 16:45] LABS: Glucose, Whole Blood 118 mg/dL (60-115)
[2020-04-11 20:20] LABS: Glucose, Whole Blood 145 mg/dL (60-115)
[2020-04-11] MEDS: Atorvastatin Calcium 80 MG TABLET PO (21:41)
[2020-04-11] MEDS: Ascorbic Acid 250 MG TABLET PO (21:41)
[2020-04-12] VITALS (10 sets, daily range): BP systolic 145–181; BP diastolic 52–76; PULSE 58–81; RESP 18–19; TEMP 15.5–36.7; O2SAT 95–99
[2020-04-12 06:16] LABS: Hematocrit 29.1 % (37-47); Hemoglobin 9.4 g/dl (12.0-16.0)
[2020-04-12] MEDS: Albuterol/Iprat 2.5/0.5MG 3 ML AMPUL.NEB INHALE (07:16)
[2020-04-12 07:46] LABS: Glucose, Whole Blood 103 mg/dL (60-115)
[2020-04-12] MEDS: Doxazosin Mesylate 2 MG TABLET 12 MG PO (07:52)
[2020-04-12] MEDS: carvediloL 12.5 MG TABLET 6.25 MG PO (07:53)
[2020-04-12] MEDS: Ferrous Sulfate 324 MG TABLET.DR PO (07:53)
[2020-04-12] MEDS: hydrALAZINE HCl 25 MG TABLET 100 MG PO (07:53)
[2020-04-12] MEDS: Isosorbide Mononitrate 60 MG TAB.ER.24H 120 MG PO (07:55)
[2020-04-12] MEDS: Levothyroxine Sodium 50 MCG TABLET 75 MCG PO (07:56)
[2020-04-12] MEDS: Omeprazole 20 MG CAPSULE.DR PO (07:56)
[2020-04-12] MEDS: amLODIPine Besylate 10 MG TABLET PO (07:56)
[2020-04-12] MEDS: Ascorbic Acid 250 MG TABLET PO (07:56)
[2020-04-12] MEDS: Cholecalciferol (Vitamin D3) 25 MCG TABLET 50 MCG PO (07:56)
[2020-04-12] MEDS: 0.9 % Sodium Chloride Flush 3 ML SYRINGE IVFLUSH (08:09)
--- NOTE | 2020-04-12 11:05 | MHC.CM.PN ---
Per multidisciplinary rounds, pt likely to be ready for DC today. Per PT recommendation and pt preference, she will go home with [facility] for care home and PT services. Pt will need chair van home
--- NOTE | 2020-04-12 11:34 | P.F2F_ITS ---
Service Date Service Date: 04/12/20 Encounter Date of encounter: 04/12/20 Reasons for Services Reason for retirement: medication management and medication treatment Reason for physical therapy: home safety and mobility, gait/transfer training and energy conservation Overseeing Care: Yuki De Dios Homebound: Leaving the home is medically contraindicated at this time without the asist of a device and/or another person due th the listed conditions above and below. Reason homebound: unsteady gait / fall risk, fall risk related to blood pressure changes and shortness of breath with minimal effort Homebound supporting statement: Significant weakness unable to ambulate more than few feet with significant anemia Certification: Based on the above findings, I certify that this patient is confined to the home and needs intermittent retirement care, physical therapy and/or speech therapy, or continues to need occupational therapy. The patient is under my care, and I have initiated the establishment of the plan of care. The patient will be followed by a physician who will periodically review the plan of care.
[2020-04-12 11:43] LABS: Glucose, Whole Blood 161 mg/dL (60-115)
--- NOTE | 2020-04-12 11:45 | P.DS_ITS ---
DS: Providers Provider Date of Service: 04/12/20 Date of admission: 04/05/20 20:53 Primary care physician: Unknown Physician Consults: 04/06/20 16:34 Consult to Gastroenterology Routine Consulting Provider: Wang Lion Reason for consultation: drop in h/h positive occult blood DS: Diagnosis Discharge Diagnosis (1) Acute alteration in mental status: Status: Acute (2) Hypoglycemia: Status: Acute (3) Pneumonia: Status: Acute (4) CKD (chronic kidney disease) stage 4, GFR 15-29 ml/min: Status: Acute (5) Positive occult stool blood test: Status: Acute (6) Hypothyroid: Status: Acute DS: Medications Discharge Medications Home Medications: Home Medications Medication Instructions Recorded Confirmed ferrous gluconate 324 mg PO BID 12/29/19 04/05/20 albuterol sulfate 90 mcg/actuation 2 puff INHALATION Q4H PRN 04/04/20 04/05/20 aerosol inhaler Combivent Respimat 1 puff INHALATION Q6H 04/05/20 04/05/20 polyethylene glycol 3350 [Miralax] 17 g PO DAILY PRN 04/05/20 04/05/20 Previous Rx's Medication Instructions Recorded carvedilol 6.25 mg tablet 6.25 mg PO BID #60 tab 02/03/20 cholecalciferol (vitamin D3) 50 50 mcg PO DAILY #30 cap 02/14/20 mcg (2,000 unit) capsule amlodipine 10 mg tablet 10 mg PO DAILY #30 tab 02/20/20 atorvastatin 80 mg tablet 80 mg PO BEDTIME #30 tab 02/20/20 doxazosin 4 mg tablet 12 mg PO DAILY #90 tab 02/20/20 isosorbide mononitrate 120 mg 120 mg PO DAILY #30 tab 02/20/20 tablet,extended release 24 hr omeprazole 20 mg capsule,delayed 20 mg PO BID #60 cap 02/20/20 release cefuroxime axetil 250 mg PO Q12H #4 tab 04/12/20 hydralazine 100 mg PO TID #90 tab 04/12/20 levothyroxine 75 mcg PO DAILY #30 tab 04/12/20 DS: Summary Hospital Course Hospital Course: History of presenting illness Chief Complaint: AMS, Hypoglycemia, asp. pneumonia 79 years old lady with past medical history of diabetes, CKD, CAD, COPD among others who presents to the hospital with altered mentation found to have low glucose level in 20s at home. She reports going to the bathroom in the morning after having sips orange juice when using blacked out and she herself on the floor. She does not recall of details of the story. As per ED provider has seems like she making mistakes thinking her medications and she ended up having low blood sugar as EMS found her levels around 28. She received IV and oral glucose replacement with good response. In the emergency she was found to be hypothermic requiring Belkys Hugger. Images for the chest was concerning for possible aspiration pneumonia. She was started on IV antibiotics. TSH found to be elevated with positive occult blood test what her hemoglobin has been stable. Admitted for further evaluation and treatment. Hospital course 79 years old lady with past medical history of diabetes, CKD, CAD, COPD among others who presents to the hospital with altered mentation found to have low glucose level in 20s at home Metabolic encephalopathy, resolved was likely due to hypoglycemia Acute hypoglycemia resolved patient was on long-acting insulin and oral linagliptin,hemoglobin A1c 5 all hypoglycemic medications have been discontinued. Abnormal chest x-ray Patient denies shortness of breath, fever, cough or chest discomfort, Normal WBC, no fevers on admission had hypothermia likely related to hypoglycemia, chest x-ray showed new ill-defined patchy air space opacities concerning for multifocal infection and new confluent retrocardiac left base consolidation was likely due to atelectasis,Blood cultures negative, no evidence of aspiration pneumonia. Acute on chronic anemia patient is status post both upper and lower endoscopy and no source of bleeding found patient received 2 units of packed RBC hematocrit remains stable no active GI bleed was noted if patient noted to have recurrent anemia then will need outpatient video capsule study recommend to avoid NSAID and aspirin and to have outpatient follow-up with Gastroenterology Hypothermia resolved was likely Secondary to infection, hypoglycemia,and hypo thyroidism UTI urine culture grew Enterobacter sensitive to ceftriaxone patient is being discharged home on 2 more days of Ceftin to finish a total 7 day course of antibiotic CKD satge 4 creatinine continue to trend down. Hypertension Noted to have elevated blood pressures therefore dose of hydralazine increased from 100 mg b.i.d. to 100 mg t.i.d. Continue doxazosin, isosorbide, and carvedil ol, repeated BP manually and it is stable Recommend to check blood pressure manually by [facility] services at home D Continue statin Hypothyroidism TSH elevated to 20.49 on 04/05/20, Synthroid increased from 50-75 , repeat TSH in 6 weeks COPD/obstructive sleep apnea continue Combivent no acute exacerbation seen. Time Spent with Patient Time attestation: Total time spent providing and/or coordinating discharge services: Discharge coordination time: Greater than 30 minutes Physical Exam Vital Signs: Vital Signs: Last Vital Signs Temp 98.0 F 04/12/20 07:36 Pulse 60 04/12/20 07:56 Resp 18 04/12/20 07:36 BP 177/76 H 04/12/20 07:56 Pulse Ox 95 04/12/20 07:36 Body Mass Index 41.1 General sitting on recliner no acute distress Neck is supple no JVD. CVS regular rate rhythm, Respiratory lungs diminished breath sounds, , no respiratory distress, no wheeze, no rhonchi. Gastrointestinal abdomen soft, nontender, bowel sounds audible, no guarding , no rigidity. Extremities no pitting edema. Neuro nonfocal . Skin pale color, no rash DS: Data Data Completed and Pending Completed studies during hospitalization [Text1]: Pending at discharge 04/09/20 12:20 Surgical [PTH] Routine Procedures Transfusion of Nonautologous Red Blood Cells into Peripheral Vein, Percutaneous Approach (12/29/19) Labs on day of discharge: Laboratory Tests 04/05/20 04/05/20 04/05/20 15:30 15:55 16:19 WBC RBC Hgb Hct MCV MCH MCHC RDW Plt Count MPV Immature Gran % (Auto) Neut % (Auto) Lymph % (Auto) [place] % (Auto) Eos % (Auto) Baso % (Auto) Lymph # (Auto) [place] # (Auto) Eos # (Auto) Baso # (Auto) Abs Immat Gran (auto) Absolute Neuts (auto) Absolute Nucleated RBC Nucleated RBC % (auto) PT INR APTT Sodium Potassium Chloride Carbon Dioxide Anion Gap BUN Creatinine Estim Creat Clear Calc Estimated GFR POC Glucose 100 50 L* 136 H Random Glucose Lactic Acid Calcium Ferritin Total Bilirubin AST ALT Alkaline Phosphatase Troponin I High Sens Total Protein Albumin Lipase TSH Urine Color Urine Appearance Urine pH Ur Specific [place] Urine Protein Urine Glucose (UA) Urine Ketones Urine Blood Urine Nitrite Ur Leukocyte Esterase Urine RBC Urine WBC Ur Squamous Epith Cells Urine Bacteria Stool Occult Blood COVID-19 ([facility]) COVID-19 Clin Com Blood Type Antibody Screen Crossmatch 04/05/20 04/05/20 04/05/20 16:44 16:44 16:44 WBC RBC Hgb Hct MCV MCH MCHC RDW Plt Count MPV Immature Gran % (Auto) Neut % (Auto) Lymph % (Auto) [place] % (Auto) Eos % (Auto) Baso % (Auto) Lymph # (Auto) [place] # (Auto) Eos # (Auto) Baso # (Auto) Abs Immat Gran (auto) Absolute Neuts (auto) Absolute Nucleated RBC Nucleated RBC % (auto) PT INR APTT Sodium Potassium Chloride Carbon Dioxide Anion Gap BUN Creatinine Estim Creat Clear Calc Estimated GFR POC Glucose Random Glucose Lactic Acid 1.0 Calcium Ferritin Total Bilirubin AST ALT Alkaline Phosphatase Troponin I High Sens 4.4 Total Protein Albumin Lipase TSH Urine Color Urine Appearance Urine pH Ur Specific [place] Urine Protein Urine Glucose (UA) Urine Ketones Urine Blood Urine Nitrite Ur Leukocyte Esterase Urine RBC Urine WBC Ur Squamous Epith Cells Urine Bacteria Stool Occult Blood COVID-19 ([facility]) Negative COVID-19 [facility] See Note Blood Type Antibody Screen Crossmatch 04/05/20 04/05/20 04/05/20 16:44 16:45 16:45 WBC 6.4 RBC 3.08 L Hgb 8.7 L Hct 27.0 L MCV 87.7 MCH 28.2 MCHC 32.2 RDW 15.4 Plt Count 203 MPV 10.2 Immature Gran % (Auto) 0.5 H Neut % (Auto) 77.0 H Lymph % (Auto) 13.9 L [place] % (Auto) 7.2 Eos % (Auto) 1.2 Baso % (Auto) 0.2 Lymph # (Auto) 0.9 L [place] # (Auto) 0.5 Eos # (Auto) 0.1 Baso # (Auto) 0.0 Abs Immat Gran (auto) 0.03 Absolute Neuts (auto) 4.9 Absolute Nucleated RBC 0.000 Nucleated RBC % (auto) 0.0 PT 11.7 INR 1.0 APTT 41.2 H Sodium 138 Potassium 4.7 Chloride 105 Carbon Dioxide 27 Anion Gap 11 L BUN 25 H Creatinine 1.96 H Estim Creat Clear Calc 21.2 Estimated GFR 25 POC Glucose Random Glucose 100 Lactic Acid Calcium 7.9 L D Ferritin Total Bilirubin 0.4 AST 31 D ALT 18 Alkaline Phosphatase 106 D Troponin I High Sens Total Protein 5.3 L Albumin 3.1 L Lipase 73 TSH 20.49 H Urine Color Urine Appearance Urine pH Ur Specific [place] Urine Protein Urine Glucose (UA) Urine Ketones Urine Blood Urine Nitrite Ur Leukocyte Esterase Urine RBC Urine WBC Ur Squamous Epith Cells Urine Bacteria Stool Occult Blood COVID-19 ([facility]) COVID-19 Clin [facility] Blood Type Antibody Screen Crossmatch 04/05/20 04/05/20 04/05/20 16:59 17:19 18:20 WBC RBC Hgb Hct MCV MCH MCHC RDW Plt Count MPV Immature Gran % (Auto) Neut % (Auto) Lymph % (Auto) [place] % (Auto) Eos % (Auto) Baso % (Auto) Lymph # (Auto) [place] # (Auto) Eos # (Auto) Baso # (Auto) Abs Immat Gran (auto) Absolute Neuts (auto) Absolute Nucleated RBC Nucleated RBC % (auto) PT INR APTT Sodium Potassium Chloride Carbon Dioxide Anion Gap BUN Creatinine Estim Creat Clear Calc Estimated GFR POC Glucose 78 176 H Random Glucose Lactic Acid Calcium Ferritin Total Bilirubin AST ALT Alkaline Phosphatase Troponin I High Sens Total Protein Albumin Lipase TSH Urine Color STRAW Urine Appearance CLEAR Urine pH 6.0 Ur Specific [place] 1.025 Urine Protein 3+ H Urine Glucose (UA) NEG Urine Ketones NEG Urine Blood NEG Urine Nitrite NEG Ur Leukocyte Esterase NEG Urine RBC 0 Urine WBC 10-14 H Ur Squamous Epith Cells NONE Urine Bacteria 4+ Stool Occult Blood COVID-19 ([facility]) COVID-19 [facility] Blood Type Antibody Screen Crossmatch 04/05/20 04/05/20 04/05/20 19:36 19:45 21:23 WBC RBC Hgb Hct MCV MCH MCHC RDW Plt Count MPV Immature Gran % (Auto) Neut % (Auto) Lymph % (Auto) [place] % (Auto) Eos % (Auto) Baso % (Auto) Lymph # (Auto) [place] # (Auto) Eos # (Auto) Baso # (Auto) Abs Immat Gran (auto) Absolute Neuts (auto) Absolute Nucleated RBC Nucleated RBC % (auto) PT INR APTT Sodium Potassium Chloride Carbon Dioxide Anion Gap BUN Creatinine Estim Creat Clear Calc Estimated GFR POC Glucose 234 H 187 H Random Glucose Lactic Acid Calcium Ferritin Total Bilirubin AST ALT Alkaline Phosphatase Troponin I High Sens Total Protein Albumin Lipase TSH Urine Color Urine Appearance Urine pH Ur Specific [place] Urine Protein Urine Glucose (UA) Urine Ketones Urine Blood Urine Nitrite Ur Leukocyte Esterase Urine RBC Urine WBC Ur Squamous Epith Cells Urine Bacteria Stool Occult Blood POS COVID-19 ([facility]) COVID-19 [facility] Blood Type Antibody Screen Crossmatch 04/06/20 04/06/20 04/06/20 02:17 06:12 06:12 WBC 8.0 RBC 2.76 L Hgb 7.7 L Hct 24.0 L MCV 87.0 MCH 27.9 MCHC 32.1 RDW 15.2 Plt Count 199 MPV 9.8 Immature Gran % (Auto) Neut % (Auto) Lymph % (Auto) [place] % (Auto) Eos % (Auto) Baso % (Auto) Lymph # (Auto) [place] # (Auto) Eos # (Auto) Baso # (Auto) Abs Immat Gran (auto) Absolute Neuts (auto) Absolute Nucleated RBC 0.000 Nucleated RBC % (auto) 0.0 PT INR APTT Sodium 136 Potassium 4.8 Chloride 104 Carbon Dioxide 26 Anion Gap 11 L BUN 24 H Creatinine 1.89 H Estim Creat Clear Calc 21.9 Estimated GFR 26 POC Glucose 213 H Random Glucose 80 Lactic Acid Calcium 7.4 L D Ferritin Total Bilirubin AST ALT Alkaline Phosphatase Troponin I High Sens Total Protein Albumin Lipase TSH Urine Color Urine Appearance Urine pH Ur Specific [place] Urine Protein Urine Glucose (UA) Urine Ketones Urine Blood Urine Nitrite Ur Leukocyte Esterase Urine RBC Urine WBC Ur Squamous Epith Cells Urine Bacteria Stool Occult Blood COVID-19 ([facility]) COVID-19 [facility] Blood Type Antibody Screen Crossmatch 04/06/20 04/06/20 04/06/20 11:04 14:49 17:45 WBC RBC Hgb Hct MCV MCH MCHC RDW Plt Count MPV Immature Gran % (Auto) Neut % (Auto) Lymph % (Auto) [place] % (Auto) Eos % (Auto) Baso % (Auto) Lymph # (Auto) [place] # (Auto) Eos # (Auto) Baso # (Auto) Abs Immat Gran (auto) Absolute Neuts (auto) Absolute Nucleated RBC Nucleated RBC % (auto) PT INR APTT Sodium Potassium Chloride Carbon Dioxide Anion Gap BUN Creatinine Estim Creat Clear Calc Estimated GFR POC Glucose 115 165 H 137 H Random Glucose Lactic Acid Calcium Ferritin Total Bilirubin AST ALT Alkaline Phosphatase Troponin I High Sens Total Protein Albumin Lipase TSH Urine Color Urine Appearance Urine pH Ur Specific [place] Urine Protein Urine Glucose (UA) Urine Ketones Urine Blood Urine Nitrite Ur Leukocyte Esterase Urine RBC Urine WBC Ur Squamous Epith Cells Urine Bacteria Stool Occult Blood COVID-19 ([facility]) COVID-19 [facility] Com Blood Type Antibody Screen Crossmatch 04/06/20 04/07/20 04/07/20 20:44 05:32 05:32 WBC 6.3 RBC 2.76 L Hgb 7.6 L Hct 24.4 L MCV 88.4 MCH 27.5 MCHC 31.1 RDW 15.6 Plt Count 207 MPV 10.8 Immature Gran % (Auto) 1.4 H Neut % (Auto) 63.2 Lymph % (Auto) 22.5 [place] % (Auto) 9.7 Eos % (Auto) 2.7 Baso % (Auto) 0.5 Lymph # (Auto) 1.4 [place] # (Auto) 0.6 Eos # (Auto) 0.2 Baso # (Auto) 0.0 Abs Immat Gran (auto) 0.09 H Absolute Neuts (auto) 4.0 Absolute Nucleated RBC 0.000 Nucleated RBC % (auto) 0.0 PT INR APTT Sodium 138 Potassium 5.0 Chloride 105 Carbon Dioxide 26 Anion Gap 12 BUN 23 H Creatinine 1.85 H Estim Creat Clear Calc 22.4 Estimated GFR 26 POC Glucose 135 H Random Glucose 126 H D Lactic Acid Calcium 7.4 L Ferritin 119 Total Bilirubin AST ALT Alkaline Phosphatase Troponin I High Sens Total Protein Albumin Lipase TSH Urine Color Urine Appearance Urine pH Ur Specific [place] Urine Protein Urine Glucose (UA) Urine Ketones Urine Blood Urine Nitrite Ur Leukocyte Esterase Urine RBC Urine WBC Ur Squamous Epith Cells Urine Bacteria Stool Occult Blood COVID-19 ([facility]) COVID-19 [facility] Blood Type Antibody Screen Crossmatch 04/07/20 04/07/20 04/07/20 08:44 11:59 11:59 WBC 5.3 RBC 2.72 L Hgb 7.5 L Hct 24.0 L MCV 88.2 MCH 27.6 MCHC 31.3 RDW 15.4 Plt Count 207 MPV 10.1 Immature Gran % (Auto) 1.0 H Neut % (Auto) 65.3 Lymph % (Auto) 20.2 [place] % (Auto) 9.9 Eos % (Auto) 3.2 Baso % (Auto) 0.4 Lymph # (Auto) 1.1 L [place] # (Auto) 0.5 Eos # (Auto) 0.2 Baso # (Auto) 0.0 Abs Immat Gran (auto) 0.05 H Absolute Neuts (auto) 3.4 Absolute Nucleated RBC 0.000 Nucleated RBC % (auto) 0.0 PT INR APTT Sodium 137 Potassium 4.9 Chloride 105 Carbon Dioxide 27 Anion Gap 10 L BUN 22 H Creatinine 1.80 H Estim Creat Clear Calc 23.0 Estimated GFR 27 POC Glucose Random Glucose 155 H Lactic Acid Calcium 7.4 L Ferritin Total Bilirubin AST ALT Alkaline Phosphatase Troponin I High Sens Total Protein Albumin Lipase TSH Urine Color Urine Appearance Urine pH Ur Specific [place] Urine Protein Urine Glucose (UA) Urine Ketones Urine Blood Urine Nitrite Ur Leukocyte Esterase Urine RBC Urine WBC Ur Squamous Epith Cells Urine Bacteria Stool Occult Blood COVID-19 ([facility]) COVID-[facility] Com Blood Type O Positive Antibody Screen NEGATIVE Crossmatch See Detail 04/07/20 04/07/20 04/08/20 16:46 21:15 05:34 WBC 6.0 RBC 3.05 L Hgb 8.6 L Hct 27.0 L MCV 88.5 MCH 28.2 MCHC 31.9 RDW 15.0 Plt Count 179 MPV 10.6 Immature Gran % (Auto) 0.7 H Neut % (Auto) 65.7 Lymph % (Auto) 19.3 L [place] % (Auto) 10.1 Eos % (Auto) 3.7 Baso % (Auto) 0.5 Lymph # (Auto) 1.2 [place] # (Auto) 0.6 Eos # (Auto) 0.2 Baso # (Auto) 0.0 Abs Immat Gran (auto) 0.04 H Absolute Neuts (auto) 3.9 Absolute Nucleated RBC 0.000 Nucleated RBC % (auto) 0.0 PT INR APTT Sodium Potassium Chloride Carbon Dioxide Anion Gap BUN Creatinine Estim Creat Clear Calc Estimated GFR POC Glucose 107 147 H Random Glucose Lactic Acid Calcium Ferritin Total Bilirubin AST ALT Alkaline Phosphatase Troponin I High Sens Total Protein Albumin Lipase TSH Urine Color Urine Appearance Urine pH Ur Specific [place] Urine Protein Urine Glucose (UA) Urine Ketones Urine Blood Urine Nitrite Ur Leukocyte Esterase Urine RBC Urine WBC Ur Squamous Epith Cells Urine Bacteria Stool Occult Blood COVID-19 ([place]) COVID-19 [facility] Blood Type Antibody Screen Crossmatch 04/08/20 04/08/20 04/08/20 05:34 07:26 11:27 WBC RBC Hgb Hct MCV MCH MCHC RDW Plt Count MPV Immature Gran % (Auto) Neut % (Auto) Lymph % (Auto) [place] % (Auto) Eos % (Auto) Baso % (Auto) Lymph # (Auto) [place] # (Auto) Eos # (Auto) Baso # (Auto) Abs Immat Gran (auto) Absolute Neuts (auto) Absolute Nucleated RBC Nucleated RBC % (auto) PT INR APTT Sodium 138 Potassium 4.4 Chloride 106 Carbon Dioxide 26 Anion Gap 10 L BUN 23 H Creatinine 1.89 H Estim Creat Clear Calc 21.9 Estimated GFR 26 POC Glucose 104 154 H Random Glucose 95 D Lactic Acid Calcium 7.4 L Ferritin Total Bilirubin AST ALT Alkaline Phosphatase Troponin I High Sens Total Protein Albumin Lipase TSH Urine Color Urine Appearance Urine pH Ur Specific [place] Urine Protein Urine Glucose (UA) Urine Ketones Urine Blood Urine Nitrite Ur Leukocyte Esterase Urine RBC Urine WBC Ur Squamous Epith Cells Urine Bacteria Stool Occult Blood COVID-19 ([facility]) COVID-19 Clin Com Blood Type Antibody Screen Crossmatch 04/08/20 04/08/20 04/09/20 16:18 19:42 05:33 WBC 5.6 RBC 3.00 L Hgb 8.5 L Hct 26.3 L MCV 87.7 MCH 28.3 MCHC 32.3 RDW 14.6 Plt Count 190 MPV 10.3 Immature Gran % (Auto) 1.1 H Neut % (Auto) 64.0 Lymph % (Auto) 20.1 [place] % (Auto) 9.3 Eos % (Auto) 5.0 H Baso % (Auto) 0.5 Lymph # (Auto) 1.1 L [place] # (Auto) 0.5 Eos # (Auto) 0.3 Baso # (Auto) 0.0 Abs Immat Gran (auto) 0.06 H Absolute Neuts (auto) 3.6 Absolute Nucleated RBC 0.000 Nucleated RBC % (auto) 0.0 PT INR APTT Sodium Potassium Chloride Carbon Dioxide Anion Gap BUN Creatinine Estim Creat Clear Calc Estimated GFR POC Glucose 178 H 135 H Random Glucose Lactic Acid Calcium Ferritin Total Bilirubin AST ALT Alkaline Phosphatase Troponin I High Sens Total Protein Albumin Lipase TSH Urine Color Urine Appearance Urine pH Ur Specific [place] Urine Protein Urine Glucose (UA) Urine Ketones Urine Blood Urine Nitrite Ur Leukocyte Esterase Urine RBC Urine WBC Ur Squamous Epith Cells Urine Bacteria Stool Occult Blood COVID-19 ([facility]) COVID-19 [facility] Com Blood Type Antibody Screen Crossmatch 04/09/20 04/09/20 04/09/20 05:33 07:14 10:55 WBC RBC Hgb Hct MCV MCH MCHC RDW Plt Count MPV Immature Gran % (Auto) Neut % (Auto) Lymph % (Auto) [place] % (Auto) Eos % (Auto) Baso % (Auto) Lymph # (Auto) [place] # (Auto) Eos # (Auto) Baso # (Auto) Abs Immat Gran (auto) Absolute Neuts (auto) Absolute Nucleated RBC Nucleated RBC % (auto) PT INR APTT Sodium 139 Potassium 4.1 Chloride 106 Carbon Dioxide 26 Anion Gap 11 L BUN 20 H Creatinine 1.71 H Estim Creat Clear Calc 24.2 Estimated GFR 29 POC Glucose 101 101 Random Glucose 92 Lactic Acid Calcium 7.6 L Ferritin Total Bilirubin AST ALT Alkaline Phosphatase Troponin I High Sens Total Protein Albumin Lipase TSH Urine Color Urine Appearance Urine pH Ur Specific [place] Urine Protein Urine Glucose (UA) Urine Ketones Urine Blood Urine Nitrite Ur Leukocyte Esterase Urine RBC Urine WBC Ur Squamous Epith Cells Urine Bacteria Stool Occult Blood COVID-19 ([facility]) COVID-19 [facility] Com Blood Type Antibody Screen Crossmatch 04/09/20 04/09/20 04/10/20 16:06 19:54 04:28 WBC 5.6 RBC 2.62 L Hgb 7.6 L Hct 23.2 L MCV 88.5 MCH 29.0 MCHC 32.8 RDW 14.8 Plt Count 169 MPV 10.3 Immature Gran % (Auto) 0.7 H Neut % (Auto) 66.3 Lymph % (Auto) 19.8 L [place] % (Auto) 8.6 Eos % (Auto) 4.1 H Baso % (Auto) 0.5 Lymph # (Auto) 1.1 L [place] # (Auto) 0.5 Eos # (Auto) 0.2 Baso # (Auto) 0.0 Abs Immat Gran (auto) 0.04 H Absolute Neuts (auto) 3.7 Absolute Nucleated RBC 0.000 Nucleated RBC % (auto) 0.0 PT INR APTT Sodium Potassium Chloride Carbon Dioxide Anion Gap BUN Creatinine Estim Creat Clear Calc Estimated GFR POC Glucose 147 H 148 H Random Glucose Lactic Acid Calcium Ferritin Total Bilirubin AST ALT Alkaline Phosphatase Troponin I High Sens Total Protein Albumin Lipase TSH Urine Color Urine Appearance Urine pH Ur Specific [place] Urine Protein Urine Glucose (UA) Urine Ketones Urine Blood Urine Nitrite Ur Leukocyte Esterase Urine RBC Urine WBC Ur Squamous Epith Cells Urine Bacteria Stool Occult Blood COVID-19 ([facility]) COVID-19 Clin Com Blood Type Antibody Screen Crossmatch 04/10/20 04/10/20 04/10/20 04:28 07:17 11:05 WBC RBC Hgb Hct MCV MCH MCHC RDW Plt Count MPV Immature Gran % (Auto) Neut % (Auto) Lymph % (Auto) [place] % (Auto) Eos % (Auto) Baso % (Auto) Lymph # (Auto) [place] # (Auto) Eos # (Auto) Baso # (Auto) Abs Immat Gran (auto) Absolute Neuts (auto) Absolute Nucleated RBC Nucleated RBC % (auto) PT INR APTT Sodium 139 Potassium 4.1 Chloride 108 Carbon Dioxide 25 Anion Gap 10 L BUN 18 H Creatinine 1.67 H Estim Creat Clear Calc 24.8 Estimated GFR 30 POC Glucose 90 133 H Random Glucose 92 Lactic Acid Calcium 7.6 L Ferritin Total Bilirubin AST ALT Alkaline Phosphatase Troponin I High Sens Total Protein Albumin Lipase TSH Urine Color Urine Appearance Urine pH Ur Specific [place] Urine Protein Urine Glucose (UA) Urine Ketones Urine Blood Urine Nitrite Ur Leukocyte Esterase Urine RBC Urine WBC Ur Squamous Epith Cells Urine Bacteria Stool Occult Blood COVID-19 ([place]) COVID-19 [facility] Blood Type Antibody Screen Crossmatch 04/10/20 04/10/20 04/10/20 16:36 17:25 20:29 WBC RBC Hgb Hct MCV MCH MCHC RDW Plt Count MPV Immature Gran % (Auto) Neut % (Auto) Lymph % (Auto) [place] % (Auto) Eos % (Auto) Baso % (Auto) Lymph # (Auto) [place] # (Auto) Eos # (Auto) Baso # (Auto) Abs Immat Gran (auto) Absolute Neuts (auto) Absolute Nucleated RBC Nucleated RBC % (auto) PT INR APTT Sodium Potassium Chloride Carbon Dioxide Anion Gap BUN Creatinine Estim Creat Clear Calc Estimated GFR POC Glucose 104 138 H Random Glucose Lactic Acid Calcium Ferritin Total Bilirubin AST ALT Alkaline Phosphatase Troponin I High Sens Total Protein Albumin Lipase TSH Urine Color Urine Appearance Urine pH Ur Specific [place] Urine Protein Urine Glucose (UA) Urine Ketones Urine Blood Urine Nitrite Ur Leukocyte Esterase Urine RBC Urine WBC Ur Squamous Epith Cells Urine Bacteria Stool Occult Blood COVID-19 ([facility]) COVID-19 Clin Com Blood Type O Positive Antibody Screen NEGATIVE Crossmatch See Detail 04/11/20 04/11/20 04/11/20 05:13 05:13 07:36 WBC 5.7 RBC 3.36 L D Hgb 9.7 L D Hct 29.9 L D MCV 89.0 MCH 28.9 MCHC 32.4 RDW 14.3 Plt Count 174 MPV 10.5 Immature Gran % (Auto) 0.5 H Neut % (Auto) 62.5 Lymph % (Auto) 23.4 [place] % (Auto) 9.8 Eos % (Auto) 3.3 Baso % (Auto) 0.5 Lymph # (Auto) 1.3 [place] # (Auto) 0.6 Eos # (Auto) 0.2 Baso # (Auto) 0.0 Abs Immat Gran (auto) 0.03 Absolute Neuts (auto) 3.6 Absolute Nucleated RBC 0.000 Nucleated RBC % (auto) 0.0 PT INR APTT Sodium 139 Potassium 4.2 Chloride 108 Carbon Dioxide 23 Anion Gap 12 BUN 19 H Creatinine 1.70 H Estim Creat Clear Calc 24.4 Estimated GFR 29 POC Glucose 94 Random Glucose 87 Lactic Acid Calcium 7.8 L Ferritin Total Bilirubin AST ALT Alkaline Phosphatase Troponin I High Sens Total Protein Albumin Lipase TSH Urine Color Urine Appearance Urine pH Ur Specific [place] Urine Protein Urine Glucose (UA) Urine Ketones Urine Blood Urine Nitrite Ur Leukocyte Esterase Urine RBC Urine WBC Ur Squamous Epith Cells Urine Bacteria Stool Occult Blood COVID-19 ([facility]) COVID-19 Clin Com Blood Type Antibody Screen Crossmatch 04/11/20 04/11/20 04/11/20 11:48 16:28 20:11 WBC RBC Hgb Hct MCV MCH MCHC RDW Plt Count MPV Immature Gran % (Auto) Neut % (Auto) Lymph % (Auto) [place] % (Auto) Eos % (Auto) Baso % (Auto) Lymph # (Auto) [place] # (Auto) Eos # (Auto) Baso # (Auto) Abs Immat Gran (auto) Absolute Neuts (auto) Absolute Nucleated RBC Nucleated RBC % (auto) PT INR APTT Sodium Potassium Chloride Carbon Dioxide Anion Gap BUN Creatinine Estim Creat Clear Calc Estimated GFR POC Glucose 150 H 118 H 145 H Random Glucose Lactic Acid Calcium Ferritin Total Bilirubin AST ALT Alkaline Phosphatase Troponin I High Sens Total Protein Albumin Lipase TSH Urine Color Urine Appearance Urine pH Ur Specific [place] Urine Protein Urine Glucose (UA) Urine Ketones Urine Blood Urine Nitrite Ur Leukocyte Esterase Urine RBC Urine WBC Ur Squamous Epith Cells Urine Bacteria Stool Occult Blood COVID-19 (ADRIANA) COVID-19 [place] [facility] Blood Type Antibody Screen Crossmatch 04/12/20 04/12/20 04/12/20 05:15 07:38 11:23 WBC RBC Hgb 9.4 L Hct 29.1 L MCV MCH MCHC RDW Plt Count MPV Immature Gran % (Auto) Neut % (Auto) Lymph % (Auto) [place] % (Auto) Eos % (Auto) Baso % (Auto) Lymph # (Auto) [place] # (Auto) Eos # (Auto) Baso # (Auto) Abs Immat Gran (auto) Absolute Neuts (auto) Absolute Nucleated RBC Nucleated RBC % (auto) PT INR APTT Sodium Potassium Chloride Carbon Dioxide Anion Gap BUN Creatinine Estim Creat Clear Calc Estimated GFR POC Glucose 103 161 H Random Glucose Lactic Acid Calcium Ferritin Total Bilirubin AST ALT Alkaline Phosphatase Troponin I High Sens Total Protein Albumin Lipase TSH Urine Color Urine Appearance Urine pH Ur Specific [place] Urine Protein Urine Glucose (UA) Urine Ketones Urine Blood Urine Nitrite Ur Leukocyte Esterase Urine RBC Urine WBC Ur Squamous Epith Cells Urine Bacteria Stool Occult Blood COVID-19 (ADRIANA) COVID-19 [place] [facility] Blood Type Antibody Screen Crossmatch Discharge Plan Discharge Patient Disposition: Home Health Service Referrals: [facility] [Outside] Yuki De Dios MD [Physician] - 1 Week (05/17/2020 9) Discharge Medications: New cefuroxime axetil 250 mg Tablet 250 mg PO Q12H Qty: 4 RF: 0 levothyroxine 50 mcg Tablet 75 mcg PO DAILY Qty: 30 RF: 0 hydralazine 25 mg Tablet 100 mg PO TID Qty: 90 RF: 0 Continued carvedilol 6.25 mg tablet 6.25 mg PO BID Qty: 60 RF: 5 cholecalciferol (vitamin D3) 50 mcg (2,000 unit) capsule 50 mcg PO DAILY Qty: 30 RF: 11 atorvastatin 80 mg tablet 80 mg PO BEDTIME Qty: 30 RF: 6 doxazosin 4 mg tablet 12 mg PO DAILY Qty: 90 RF: 2 isosorbide mononitrate 120 mg tablet extended release 24 hr 120 mg PO DAILY Qty: 30 RF: 3 omeprazole 20 mg capsule,delayed release(DR/EC) 20 mg PO BID Qty: 60 RF: 5 amlodipine 10 mg tablet 10 mg PO DAILY Qty: 30 RF: 5 ferrous gluconate 324 mg (37.5 mg iron) Tablet 324 mg PO BID RF: 0 polyethylene glycol 3350 [Miralax] 17 gram Powder In Packet 17 g PO DAILY PRN (Reason: Constipation) RF: 0 Combivent Respimat 20-100 mcg/actuation Mist 1 puff INHALATION Q6H RF: 0 albuterol sulfate 90 mcg/actuation HFA aerosol inhaler 2 puff inhalation Q4H PRN (Reason: Shortness Of Breath) RF: 0 Discontinued hydralazine 100 mg tablet 100 mg PO BID Qty: 90 RF: 1 levothyroxine 50 mcg Tablet 50 mcg PO DAILY RF: 0 aspirin 81 mg tablet,chewable 81 mg PO DAILY RF: 0 insulin aspart U-100 [Novolog U-100 Insulin aspart] 100 unit/mL Solution 1 sliding scale dose SUBCUT USEASDIRECTD RF: 0 Tradjenta 5 mg Tablet 5 mg PO DAILY RF: 0 Tresiba FlexTouch U-200 200 unit/mL (3 mL) Insulin Pen 46 unit SUBCUT DAILY RF: 0 (DME) lancets 33 gauge misc See Rx Instructions ea Not Applicable QID Qty: 100 RF: 0 (DME) pen needle, diabetic 32 gauge x 5/32 needle See Rx Instructions ea .ROUTE .MEDSUPPLY Qty: 50 RF: 0 (DME) blood sugar diagnostic Strip See Rx Instructions ea Not Applicable QID Qty: 10 RF: 0 Discharge Orders: Discharge Order (Routine); Ordered 04/12/20 Ordered By: Aleisha Merlos Diet: low fat, low cholesterol Activity on Discharge: As tolerated Visit Report Forms: Patient Portal Discharge page Care Plan Goals: Return to check with any worsening weakness lightheadedness dizziness, blood in stool or vomiting. No aspirin, no NSAIDs Health Concerns: Anemia and weakness, follow blood pressure closely take manual BP,s Plan of Treatment: Follow-up with primary care physician and gastroenterology in 2 weeks.
--- NOTE | 2020-04-12 13:19 | MHC.CM.PN ---
Pt will DC home today with [facility] for PT and SN services. Chair van transportation arranged for 1400 hours.
== END 2020-04-12 14:51 | disposition home health service (06) | DRG 193 ==
LOC: HO.ED 20:47 → HO.IMC 04-06 13:13
PROVIDERS: Internal Medicine; Internal Medicine Gastroenterology; Admitting Provider Student in an Organized Health Care Education/Training Program; Emergency Provider Internal Medicine; PCP Internal Medicine; Visit Provider Hospitalist
PROC: 0DB98ZX Excision of Duodenum, Via Natural or Artificial Opening Endoscopic, Diagnostic (ICD-10-PCS; principal; 2020-04-09 12:30)
DX: J18.9 Pneumonia, unspecified organism (principal); G93.41 Metabolic encephalopathy; K57.31 Diverticulosis of large intestine without perforation or abscess with bleeding; N39.0 Urinary tract infection, site not specified; N18.4 Chronic kidney disease, stage 4 (severe); E11.649 Type 2 diabetes mellitus with hypoglycemia without coma; I12.9 Hypertensive chronic kidney disease with stage 1 through stage 4 chronic kidney disease, or unspecified chronic kidney disease; K21.9 Gastro-esophageal reflux disease without esophagitis; I25.10 Atherosclerotic heart disease of native coronary artery without angina pectoris; E78.5 Hyperlipidemia, unspecified; J44.9 Chronic obstructive pulmonary disease, unspecified; E11.22 Type 2 diabetes mellitus with diabetic chronic kidney disease; E03.9 Hypothyroidism, unspecified; D50.0 Iron deficiency anemia secondary to blood loss (chronic); B95.2 Enterococcus as the cause of diseases classified elsewhere; K63.5 Polyp of colon; R91.8 Other nonspecific abnormal finding of lung field; G47.33 Obstructive sleep apnea (adult) (pediatric); R68.0 Hypothermia, not associated with low environmental temperature; Z87.891 Personal history of nicotine dependence; Z20.828 Contact with and (suspected) exposure to other viral communicable diseases; Z79.890 Hormone replacement therapy; Z79.899 Other long term (current) drug therapy
CPT/HCPCS: 36415; 70450; 71045; 80048; 80053; 81001; 82272; 82728; 82947; 83605; 83690; 84443; 84484; 85014; 85018; 85025; 85027; 85610; 85730; 86850; 86900; 86901; 86920; 87040; 87086; 87088; 87186; 87635; 88305; 88342; 93005; 94640; 94660; 96361; 96365; 96366; 96375; 97162; 99285; 99291; C1758; J1610; J1940; J2543; P9016

== ENCOUNTER 2020-05-07 12:35 | Outpatient (REF) | payer MEDICARE, MEDICAID, OTHER, SELFPAY ==
[2020-05-07 12:39] LABS: MANUAL DIFF FLAG NO
[2020-05-07 12:44] LABS: Basophils Percent Auto 0.8 % (0-2); Eosinophils Absolute Auto 0.1 X10*3/uL (0.0-0.4); Eosinophils Percent Auto 2.4 % (0-4); Hematocrit 33.5 % (37-47); Hemoglobin 10.7 g/dl (12.0-16.0); Imm Gran Abs Auto 0.02 X10*3/uL (0.00-0.03); Imm Gran Pct Auto 0.4 % (0.0-0.4); Lymphocytes Absolute Auto 1.2 X10*3/uL (1.2-4.9); Lymphocytes Percent Auto 23.8 % (20-40); Mean Corpuscular HGB Conc 31.9 g/dl (31.0-35.0); Mean Corpuscular Hemoglobin 28.5 pg (27.0-33.0); Mean Corpuscular Volume 89.3 fL (80-98); Mean Platelet Volume 11.2 fL (9.4-12.3); Monocytes Absolute Auto 0.4 X10*3/uL (0.1-1.2); Monocytes Percent Auto 7.5 % (2-11); Neutrophils Absolute Auto 3.3 X10*3/uL (2.0-8.3); Neutrophils Percent Auto 65.1 % (45-73); Platelet Count 236 X10*3/uL (160-400); Red Blood Count 3.75 X10*6/uL (4.20-5.50); Red Cell Distribution Width 14.9 % (11.0-16.0)
[2020-05-07 13:24] LABS: Anion Gap 11 (12-20); Blood Urea Nitrogen 18 mg/dL (9-16); Calcium 7.5 mg/dL (8.4-10.2); Carbon Dioxide 24 mmol/L (22-29); Chloride 110 mmol/L (96-108); Estimated Glomerular Filt Rate 29; Glucose Random 140 mg/dL (60-115); Potassium 4.1 mmol/L (3.3-5.1); Sodium 141 mmol/L (135-145)
[2020-05-07 13:25] LABS: B Type Natriuretic Peptide 168 pg/mL (<100)
== END 2020-05-07 12:36 | disposition home or self-care (01) ==
LOC: HO.LNP 12:35
PROVIDERS: Visit Provider Internal Medicine
DX: E11.22 Type 2 diabetes mellitus with diabetic chronic kidney disease (principal); I13.0 Hypertensive heart and chronic kidney disease with heart failure and stage 1 through stage 4 chronic kidney disease, or unspecified chronic kidney disease; N18.9 Chronic kidney disease, unspecified; I50.32 Chronic diastolic (congestive) heart failure; D63.1 Anemia in chronic kidney disease
CPT/HCPCS: 80048; 83880; 85025

== ENCOUNTER → 2020-06-26 12:53 | Outpatient (BNVA) | payer SELFPAY | PROVIDERS: PCP Internal Medicine; Visit Provider Internal Medicine Endocrinology, Diabetes & Metabolism ==

== ENCOUNTER 2020-08-03 11:10 | Outpatient (REF) | payer MEDICARE, OTHER, SELFPAY ==
[2020-08-03 13:50] LABS: MANUAL DIFF FLAG NO
[2020-08-03 13:54] LABS: Basophils Percent Auto 0.4 % (0-2); Eosinophils Absolute Auto 0.1 X10*3/uL (0.0-0.4); Eosinophils Percent Auto 2.4 % (0-4); Hematocrit 25.6 % (37-47); Hemoglobin 8.3 g/dl (12.0-16.0); Imm Gran Abs Auto 0.03 X10*3/uL (0.00-0.03); Imm Gran Pct Auto 0.6 % (0.0-0.4); Lymphocytes Absolute Auto 1.5 X10*3/uL (1.2-4.9); Lymphocytes Percent Auto 32.7 % (20-40); Mean Corpuscular HGB Conc 32.4 g/dl (31.0-35.0); Mean Corpuscular Hemoglobin 29.6 pg (27.0-33.0); Mean Corpuscular Volume 91.4 fL (80-98); Mean Platelet Volume 9.8 fL (9.4-12.3); Monocytes Absolute Auto 0.5 X10*3/uL (0.1-1.2); Monocytes Percent Auto 10.3 % (2-11); Neutrophils Absolute Auto 2.5 X10*3/uL (2.0-8.3); Neutrophils Percent Auto 53.6 % (45-73); Platelet Count 199 X10*3/uL (160-400); Red Cell Distribution Width 15.1 % (11.0-16.0); White Blood Count 4.7 X10*3/uL (4.8-10.8)
[2020-08-03 14:08] LABS: Alanine Aminotransferase 16 U/L (0-31); Albumin Level 2.7 g/dL (3.5-5.0); Alkaline Phosphatase 120 U/L (39-117); Anion Gap 12 (12-20); Aspartate Amino Transferase 41 U/L (5-31); Bilirubin Total 0.6 mg/dL (0.0-1.0); Blood Urea Nitrogen 25 mg/dL (9-16); Carbon Dioxide 24 mmol/L (22-29); Chloride 110 mmol/L (96-108); Cholesterol 184 mg/dL; Estimated Glomerular Filt Rate 25; Glucose Fasting 114 mg/dL (60-99); HDL Cholesterol 35 mg/dL; LDL Cholesterol Calculated 104 mg/dl; Potassium 4.3 mmol/L (3.3-5.1); Sodium 142 mmol/L (135-145); Total Protein 5.3 g/dL (6.5-8.0); Triglycerides 228 mg/dL
[2020-08-03 14:14] LABS: B Type Natriuretic Peptide 180 pg/mL (<100)
[2020-08-03 14:16] LABS: Estimated Average Glucose 94 mg/dL; Hemoglobin A1c % 4.9 %
[2020-08-03 14:29] LABS: Free T4 (Free Thyroxine) 0.89 ng/dL (0.71-1.85); Thyroid Stimulating Hormone 13.77 uIU/mL (0.32-4.0); Vitamin D 25-OH Total 25.2 ng/mL (>30)
[2020-08-03 14:38] LABS: Creatinine Urine 68.41 mg/dL
[2020-08-03 14:44] LABS: Folate 4.2 ng/mL (> or = 4.0); Vitamin B12 293 pg/mL (200-900)
[2020-08-04 05:32] LABS: LDL Cholesterol Direct 100 mg/dL (<100)
[2020-08-04 07:12] LABS: Thyroid Peroxidase Antibodies <1 IU/mL (<9)
[2020-08-06 13:16] LABS: Calcium (PTHI) 8.2 mg/dL (8.6-10.4); PTHI 110 pg/mL (14-64)
[2020-08-08 06:17] LABS: Thyroglobulin Antibody <1 IU/mL (<=1); Thyroglobulin Level 123.5 ng/mL
== END 2020-08-03 11:11 | disposition home or self-care (01) ==
LOC: HO.LAB 11:10
PROVIDERS: Internal Medicine Endocrinology, Diabetes & Metabolism; PCP Internal Medicine; Referring Provider Internal Medicine; Visit Provider Nurse Practitioner Family
DX: R07.89 Other chest pain (principal); C73 Malignant neoplasm of thyroid gland; I12.9 Hypertensive chronic kidney disease with stage 1 through stage 4 chronic kidney disease, or unspecified chronic kidney disease; N18.30 Chronic kidney disease, stage 3 unspecified; E11.22 Type 2 diabetes mellitus with diabetic chronic kidney disease; Z78.0 Asymptomatic menopausal state; R53.83 Other fatigue; R53.81 Other malaise; E78.5 Hyperlipidemia, unspecified; E03.9 Hypothyroidism, unspecified; I25.10 Atherosclerotic heart disease of native coronary artery without angina pectoris; I48.0 Paroxysmal atrial fibrillation; I65.23 Occlusion and stenosis of bilateral carotid arteries; G47.33 Obstructive sleep apnea (adult) (pediatric); E66.9 Obesity, unspecified; R60.9 Edema, unspecified; Z79.4 Long term (current) use of insulin
CPT/HCPCS: 36415; 80053; 80061; 82043; 82306; 82607; 82746; 83036; 83721; 83880; 83970; 84432; 84439; 84443; 85025; 86376; 86800; 93005; 99212

== ENCOUNTER 2020-08-06 10:24 | Outpatient (REF) | payer MEDICARE, OTHER, SELFPAY ==
--- NOTE | ~2020-08-06 | US_ITS ---
EXAMINATION: US EXTRACRANIAL CAROTID DUPLEX, BILATERAL CLINICAL INFORMATION: This is an 80-year-old female with occlusion and stenosis bilaterally in the carotid arteries. COMPARISON: Comparison is made to a previous study dated 10/22/2018 which demonstrated bilateral 50-79% internal carotid artery stenoses. TECHNIQUE: Real-time ultrasound and Doppler techniques (integrating B-mode 2-D vascular images, Doppler spectral analysis and color-flow Doppler imaging) were utilized to interrogate the extracranial carotid arteries, the vertebral arteries and proximal subclavian arteries bilaterally. The degree of stenosis is determined by criteria similar to NASCET. FINDINGS: Right Side: 1. There is moderate atherosclerotic plaque seen in the bifurcation/proximal ICA region. 2. The common carotid artery PSV proximally is 86 cm/s and distally 78 cm/s. 3. The proximal internal carotid artery velocities are 99 cm/s systolic and 26 cm/s diastolic. 4. The proximal external carotid artery PSV is 181 cm/s. 5. The vertebral artery shows antegrade flow. 6. The subclavian artery waveforms are normal. Left Side: 1. There is moderate atherosclerotic plaque seen in the bifurcation/proximal ICA region. 2. The common carotid artery PSV proximally is 101 cm/s and distally 93 cm/s. 3. The proximal internal carotid artery velocities are 258 cm/s systolic and 39 cm/s diastolic. 4. The proximal external carotid artery PSV is 348 cm/s. There is a hemodynamically significant stenosis within the external carotid artery. 5. The vertebral artery is not seen. 6. The subclavian artery waveforms are normal. US/US carotid duplex BI IMPRESSION: 1. RIGHT: Minimal, non-hemodynamically significant stenosis of the proximal right internal carotid artery corresponding to a 0-49% stenosis by velocity criteria. The category severity of disease on the right appears less severe on today's study. 2. LEFT: Moderate, hemodynamically significant stenosis of the proximal left internal carotid artery corresponding to a 50-79% stenosis by velocity criteria. The category severity of disease on the left appears unchanged.
== END 2020-08-06 10:25 | disposition home or self-care (01) ==
LOC: HO.HMGCX 10:24
PROVIDERS: PCP Internal Medicine; Visit Provider Nurse Practitioner Family
DX: I65.23 Occlusion and stenosis of bilateral carotid arteries (principal)
CPT/HCPCS: 93880

== ENCOUNTER → 2020-08-09 09:54 | Outpatient (REF) | payer MEDICARE, OTHER, SELFPAY ==
--- NOTE | 2020-08-10 08:00 | ECG_ITS ---
Hook-up date: 2020-08-09 10:25:00 Duration: 47:59:00 Test Indications: PAF Medications: [id number] QRS complexes 1 Ventricular ectopics which represent <1 % of total QRS comp. 1629 Supraventricular ectopics which represent 1 % of total QRS comp. * Paced QRS complexs which represent % of total QRS comp. VENTRICULAR ECTOPY 1 Isolated 0 Bigeminal Cycles 0 Couplets 0 Runs 0 Beats in Runs * Beats LONGEST at * BPM at :: -- * Beats FASTEST at * BPM at :: -- SUPRAVENTRICULAR ECTOPY 1195 Isolated 201 Couplets 9 Runs 32 Beats in Runs 7 Beats LONGEST at 132 BPM at 20:22:09 2020-08-09 3 Beats FASTEST at 140 BPM at 09:03:14 2020-08-10 HEART RATES 63 MIN at 02:57:32 2020-08-10 65 AVG 91 MAX at 10:48:48 2020-08-09 LONGEST RR 1.2080 secs at 00:59:50 2020-08-10 S-T LEVELS Channel 1 - 128 mm at 10:25:00 2020-08-09 - 128 mm at 10:25:00 2020-08-09 Channel 2 - 128 mm at 10:25:00 2020-08-09 - 128 mm at 10:25:00 2020-08-09 Channel 3 - 128 mm at 02:94:41 -- - 128 mm at 02:94:41 Basic rhythm Normal sinus rhythm No long pause or profound bradycardia Frequent Premature atrial complexes No sustained Atrial fibrillation No diary submitted Referred By: Karlene Cuevas Overread By: ELISHA GABRIEL MD
== END ==
LOC: HO.CARD 09:54
PROVIDERS: PCP Internal Medicine; Visit Provider Nurse Practitioner Family
DX: I48.0 Paroxysmal atrial fibrillation (principal)
CPT/HCPCS: 93226

== ENCOUNTER 2020-09-11 13:00 | Outpatient (REF) | payer MEDICARE, OTHER, SELFPAY ==
--- NOTE | ~2020-09-11 | XR_ITS ---
EXAMINATION: XR CHEST CLINICAL INFORMATION: Shortness of breath COMPARISON: Previous chest x-rays most recent March 2020 TECHNIQUE: 2 views of the chest were obtained. FINDINGS: The cardiac silhouette is enlarged. The lung volumes are low. There is pulmonary venous redistribution. There are increased central bronchovascular markings, left greater than right. Differential would include airways disease or bronchitis/bronchitis and pulmonary edema. Clinical correlation is recommended. The lungs are otherwise clear. There is no pleural effusion. There are degenerative changes of the spine. XR/XR chest 2V IMPRESSION: Enlarged cardiac silhouette. Pulmonary venous redistribution and increased central bronchovascular markings, left greater than right. Differential would include bronchitis//airways disease and pulmonary edema. Clinical correlation recommended.
[2020-09-11 14:24] LABS: MANUAL DIFF FLAG NO
[2020-09-11 14:29] LABS: Basophils Percent Auto 0.4 % (0-2); Eosinophils Absolute Auto 0.1 X10*3/uL (0.0-0.4); Eosinophils Percent Auto 2.3 % (0-4); Hematocrit 26.2 % (37-47); Hemoglobin 8.5 g/dl (12.0-16.0); Imm Gran Abs Auto 0.07 X10*3/uL (0.00-0.03); Imm Gran Pct Auto 1.2 % (0.0-0.4); Lymphocytes Absolute Auto 1.2 X10*3/uL (1.2-4.9); Mean Corpuscular HGB Conc 32.4 g/dl (31.0-35.0); Mean Corpuscular Hemoglobin 29.3 pg (27.0-33.0); Mean Corpuscular Volume 90.3 fL (80-98); Mean Platelet Volume 9.7 fL (9.4-12.3); Monocytes Absolute Auto 0.4 X10*3/uL (0.1-1.2); Monocytes Percent Auto 6.9 % (2-11); Neutrophils Absolute Auto 3.8 X10*3/uL (2.0-8.3); Neutrophils Percent Auto 68.2 % (45-73); Platelet Count 233 X10*3/uL (160-400); Red Cell Distribution Width 14.2 % (11.0-16.0); White Blood Count 5.6 X10*3/uL (4.8-10.8)
[2020-09-11 14:59] LABS: Anion Gap 10 (12-20); Blood Urea Nitrogen 24 mg/dL (9-16); Calcium 7.7 mg/dL (8.4-10.2); Carbon Dioxide 22 mmol/L (22-29); Chloride 114 mmol/L (96-108); Estimated Glomerular Filt Rate 23; Glucose Random 125 mg/dL (60-115); Potassium 3.9 mmol/L (3.3-5.1); Sodium 142 mmol/L (135-145)
[2020-09-11 15:03] LABS: B Type Natriuretic Peptide 211 pg/mL (<100)
[2020-09-11 15:20] LABS: TSH reflex Free T4 0.89 uIU/mL (0.32-4.0)
== END 2020-09-11 13:01 | disposition home or self-care (01) ==
LOC: HO.LAB 13:00
PROVIDERS: Absent Provider Internal Medicine; PCP Internal Medicine; Visit Provider Nurse Practitioner Family
DX: R07.89 Other chest pain (principal); R06.02 Shortness of breath; I25.10 Atherosclerotic heart disease of native coronary artery without angina pectoris; I48.0 Paroxysmal atrial fibrillation; I65.23 Occlusion and stenosis of bilateral carotid arteries; G47.33 Obstructive sleep apnea (adult) (pediatric); R60.9 Edema, unspecified; E03.9 Hypothyroidism, unspecified
CPT/HCPCS: 36415; 71046; 80048; 83880; 84443; 85025; 99212

== ENCOUNTER → 2020-09-26 13:52 | Outpatient (BNVA) | payer MEDICARE, OTHER, SELFPAY | PROVIDERS: PCP Internal Medicine; Visit Provider Internal Medicine Endocrinology, Diabetes & Metabolism | DX: E11.21 Type 2 diabetes mellitus with diabetic nephropathy (principal); E11.22 Type 2 diabetes mellitus with diabetic chronic kidney disease; N18.30 Chronic kidney disease, stage 3 unspecified; E78.5 Hyperlipidemia, unspecified; E89.0 Postprocedural hypothyroidism; C73 Malignant neoplasm of thyroid gland; Z79.4 Long term (current) use of insulin | CPT/HCPCS: 82947; 99212 ==

== ENCOUNTER → 2020-10-30 14:05 | Outpatient (BNVA) | payer MEDICARE, OTHER, SELFPAY | PROVIDERS: PCP Internal Medicine; Visit Provider Nurse Practitioner Family | DX: R06.02 Shortness of breath (principal); R07.89 Other chest pain; I25.10 Atherosclerotic heart disease of native coronary artery without angina pectoris; I48.0 Paroxysmal atrial fibrillation; I65.23 Occlusion and stenosis of bilateral carotid arteries; G47.33 Obstructive sleep apnea (adult) (pediatric); E66.9 Obesity, unspecified; R60.9 Edema, unspecified | CPT/HCPCS: 99212 ==

== ENCOUNTER 2020-10-30 14:44 | Emergency (ER) | payer MEDICARE, OTHER, SELFPAY ==
--- NOTE | 2020-10-30 | ECG_ITS ---
Test Reason : WEAKNESS Blood Pressure : / mmHG Vent. Rate : 071 BPM Atrial Rate : 071 BPM P-R Int : 130 ms QRS Dur : 078 ms QT Int : 402 ms P-R-T Axes : 031 -02 095 degrees QTc Int : 436 ms Normal sinus rhythm Low voltage QRS Cannot rule out Anterior infarct (cited on or before 05-APR-2020) Abnormal ECG When compared with ECG of 05-APR-2020 15:57, Previous ECG has undetermined rhythm, needs review Nonspecific T wave abnormality, worse in Lateral leads Referred By: Generic ED Physician Electronically Signed By:Davidson Smith
--- NOTE | ~2020-10-30 | XR_ITS ---
EXAMINATION: XR CHEST CLINICAL INFORMATION: Chest pain COMPARISON: Chest x-ray September 11, 2020 TECHNIQUE: Frontal view of the chest was obtained. FINDINGS: Cardiac silhouette is normal in size. Atherosclerotic disease of the aortic arch. The lungs are adequately aerated. No lobar consolidation. No pleural effusion or pneumothorax. XR/XR chest 1V IMPRESSION: No acute pulmonary pathology.
[2020-10-30 15:10] VITALS: BP 167/48; PULSE 75; RESP 20; TEMP 36.8; O2SAT 98; BMI 27.3
[2020-10-30 18:32] VITALS: BP 187/63; PULSE 77; RESP 18; TEMP 36.6; O2SAT 99
--- NOTE | 2020-10-30 18:53 | ED.GENADULT ---
HPI - General Adult General Chief complaint: Dyspnea Stated complaint: freezing Time Seen by Provider: 10/30/20 17:12 Source: patient Mode of arrival: ambulatory Limitations: no limitations History of Present Illness HPI narrative: 80-year-old female came in for evaluation of chin last tetanus, shortness of breath, chest pain, chills, feeling cold. Symptoms started 7 days ago. No sick contact, new recent trauma no fever. Patient somehow is a limited historian. Related Data Home Medications Medication Instructions Recorded Confirmed polyethylene glycol 3350 17 gram 17 g PO DAILY PRN 04/05/20 10/30/20 oral powder packet (Miralax) linagliptin 5 mg tablet 5 mg PO DAILY 09/26/20 10/30/20 Previous Rx's Medication Instructions Recorded cholecalciferol (vitamin D3) 50 50 mcg PO DAILY #30 cap 02/14/20 mcg (2,000 unit) capsule omeprazole 20 mg capsule,delayed 20 mg PO BID #60 cap 02/20/20 release cefuroxime axetil 250 mg tablet 250 mg PO Q12H #6 tab 04/24/20 hydralazine 100 mg tablet 100 mg PO Q8H 30 Days #90 tab 05/08/20 pen needle, diabetic 32 gauge x #400 ea 07/23/20 (BD Swetha 2nd Gen Pen Needle) blood sugar diagnostic (FreeStyle #300 ea 08/17/20 Lite Strips) lancets 33 gauge (TRUEplus Lancets) #300 ea 08/17/20 amlodipine 10 mg tablet 10 mg PO DAILY #30 tab 09/12/20 doxazosin 4 mg tablet 12 mg PO DAILY #90 tab 09/12/20 ferrous gluconate 324 mg (37.5 mg 324 mg PO BID #60 tab 09/19/20 iron) tablet carvedilol 6.25 mg tablet 6.25 mg PO BID #60 tab 09/30/20 levothyroxine 75 mcg tablet 75 mcg PO DAILY 90 Days #90 tab 10/15/20 atorvastatin 80 mg tablet 80 mg PO BEDTIME #30 tab 10/23/20 isosorbide mononitrate 120 mg 120 mg PO DAILY #30 tab 10/23/20 tablet,extended release 24 hr Allergies Allergy/AdvReac Type Severity Reaction Status Date / Time oxycodone Allergy Unknown rash Verified 09/24/20 21:32 Review of Systems Review of Systems: All other systems are reviewed and are negative Constitutional: Reports as per HPI and Reports no additional constitutional complaints Eyes: Reports as per HPI and Reports no additional eye complaints Reports system reviewed and no additional complaints, except as documented Cardiovascular: Reports as per HPI and Reports no additional cardiovascular complaints Respiratory: Reports as per HPI and Reports no additional respiratory complaints Gastrointestinal: Reports as per HPI and Reports no additional gastrointestinal complaints Genitourinary: Reports no additional female genitourinary complaints Musculoskeletal: Reports no additional musculoskeletal complaints Skin/Breast: Reports system reviewed and no additional complaints, except as docu Psychiatric: Reports no additional psychiatric complaints Endocrine: Reports no additional endocrine complaints Hematologic/Lymphatic: Reports no additional hematologic/lymphatic complaints Allergic/Immunologic: Reports no additional allergic/immunologic complaints Reports system reviewed and no additional complaints, except as documented and Reports Abnormal speech present [facility] Past Medical History Medical History Acute on chronic kidney failure Acute UTI Anemia in chronic kidney disease Bronchitis CAD (coronary artery disease) Carotid stenosis, bilateral CKD (chronic kidney disease) stage 4, GFR 15-29 ml/min COPD (chronic obstructive pulmonary disease) Diabetes mellitus with chronic kidney disease, with long-term current use of insulin Diabetic nephropathy associated with type 2 diabetes mellitus Dyslipidemia Gastritis GERD (gastroesophageal reflux disease) HTN (hypertension) Hypothyroid Left thalamic infarction Obesity RAISA (obstructive sleep apnea) Paroxysmal atrial fibrillation Pedal edema Post-surgical hypothyroidism Primary thyroid cancer Pulmonary nodule Respiratory crackles at both lung bases Sepsis Thyroid cancer Surgical History H/O angioplasty H/O heart artery stent History of thyroidectomy Hx of appendectomy S/P JOHN-BSO (~1997) Family History Family History Father CVD (cardiovascular disease) Mother CVD (cardiovascular disease) Brother CVD (cardiovascular disease) Parkinson disease Social History Social History Household Members: Spouse Housing: Other Housing Other:: mobile home Do you presently have visiting nurse or other home services: Yes Alcohol intake: unknown Patient Tobacco Use Status: Tobacco use Unknown Second Hand Smoke Exposure: No Use of substances other than those prescribed or required for medical reasons: Unknown Advance Directives: No Advance Directives Information Provided: Yes service: No Current occupational status: retired Physical Exam Vital Signs: Vital Signs: Last Vital Signs Temp 98.4 F 10/31/20 00:00 Pulse 72 10/31/20 00:00 Resp 18 10/31/20 00:00 BP 172/54 H 10/31/20 00:00 Pulse Ox 98 10/31/20 00:00 Body Mass Index 27.3 Vital signs have been reviewed as appeared to be correct. Blood pressure elevated.Heart rate normal. Respiration rate normal. Temperature normal. Oxygen saturation normal. Appearance: Alert. Oriented X3. No acute distress. Head: Normal external exam. Normocephalic. Atraumatic. No Daly signs noted. No raccoon eyes noted Eyes: PERRLA. EOMI. Conjunctiva and sclera normal. Eyelids normal. ENT: TM's Normal. Pharynx normal. Uvula midline. Moist mucous membranes. No trismus noted. No drooling noted. No muffled voice noted. Neck: Normal inspection. Neck supple. FROM. No adenopathy. Thyroid Normal. No meningeal signs. No neck mass noted. CVS: Normal heart rate and rhythm. Heart sound normal. No murmurs noted. Pulses normal throughout. Respiratory: No respiratory distress. Painless inspiration. Breath sounds normal. No wheezes/rales/rhonchi noted. Chest nontender. No accessory muscle usage noted or decreased air movement noted. Abdomen: Soft and nontender. Bowel sounds normal in all 4 quadrants. No distention noted. No organomegaly noted. No visible injury noted. Back: No CVA tenderness. Full range of motion noted. Skin: Skin warm and dry. Normal skin color. Normal skin turgor. No rashes/lesions/lacerations noted. Extremities: No lower extremity edema. Extremities exhibit normal range of motion. Extremities nontender. Neuro: Oriented X 3. No motor deficit. No sensory deficit. Reflexes normal. Course Course Course Narrative: Assessment and plan. 80-year-old female came in with chest pain/shortness of breath. Patient kept in the emergency department for many hours awaiting for somebody to pick her up from family, during the time patient had continuous monitoring, patient had stable vital signs throughout her stay in the emergency department, patient had unremarkable labs with her normal baseline values, EKG/troponin unremarkable. Tolerating p.o. intake in the emergency department, await for family to pick her up a.m. Medical Decision Making Lab Data Lab results reviewed: Yes I reviewed the patient's lab results. Result diagrams: 10/30/20 20:03 10/30/20 20:03 Labs: Lab Results 10/30/20 10/30/20 10/30/20 Range/Units 20:03 20:03 20:03 WBC 8.3 (4.8-10.8) X10*3/uL RBC 2.86 L (4.20-5.50) X10*6/uL Hgb 8.4 L (12.0-16.0) g/dl Hct 25.3 L (37-47) % MCV 88.5 (80-98) fL MCH 29.4 (27.0-33.0) pg MCHC 33.2 (31.0-35.0) g/dl RDW 14.3 (11.0-16.0) % Plt Count 215 (160-400) X10*3/uL MPV 9.8 (9.4-12.3) fL Immature Gran % (Auto) 0.6 H (0.0-0.4) % Neut % (Auto) 77.1 H (45-73) % Lymph % (Auto) 13.8 L (20-40) % [place] % (Auto) 6.8 (2-11) % Eos % (Auto) 1.5 (0-4) % Baso % (Auto) 0.2 (0-2) % Lymph # (Auto) 1.1 L (1.2-4.9) X10*3/uL [place] # (Auto) 0.6 (0.1-1.2) X10*3/uL Eos # (Auto) 0.1 (0.0-0.4) X10*3/uL Baso # (Auto) 0.0 (0.0-0.2) X10*3/uL Abs Immat Gran (auto) 0.05 H (0.00-0.03) X10*3/uL Absolute Neuts (auto) 6.4 (2.0-8.3) X10*3/uL Absolute Nucleated RBC 0.000 (0.0-0.012) X10*3/uL Nucleated RBC % (auto) 0.0 (0.0-0.2) /100WBC Sodium 141 (135-145) mmol/L Potassium 4.2 (3.3-5.1) mmol/L Chloride 113 H (96-108) mmol/L Carbon Dioxide 20 L (22-29) mmol/L Anion Gap 12 (12-20) BUN 25 H (9-16) mg/dL Creatinine 2.24 H (0.5-1.4) mg/dL Estim Creat Clear Calc 16.7 Estimated GFR 21 Random Glucose 113 (60-115) mg/dL Lactic Acid (0.5-2.0) mmol/L Calcium 7.9 L (8.4-10.2) mg/dL Total Bilirubin 0.4 (0.0-1.0) mg/dL Direct Bilirubin 0.2 (0.0-0.5) mg/dL AST 38 H (5-31) U/L ALT 15 (0-31) U/L Alkaline Phosphatase 119 H (39-117) U/L Troponin I High Sens 10.1 (<3.5-17.0) ng/L B-Natriuretic Peptide 234 H (<100) pg/mL Total Protein 5.0 L (6.5-8.0) g/dL Albumin 2.4 L (3.5-5.0) g/dL Lipase 65 (8-78) U/L Urine Color Urine Appearance Urine pH (5.0-8.0) Ur Specific [place] (1.005-1.025) Urine Protein (NEG-TRACE) MG/DL Urine Glucose (UA) (NEG) MG/DL Urine Ketones (NEG) MG/DL Urine Blood (NEG) Urine Nitrite (NEG) Ur Leukocyte Esterase (NEG) Urine RBC (0) /HPF Urine WBC (0-4) /HPF Ur Squamous Epith Cells /LPF Urine Bacteria /LPF Coronavirus (PCR) (Negative) Influenza Type A (PCR) (Negative) Influenza Type B (PCR) (Negative) RSV RNA Qual (PCR) (Negative) 10/30/20 10/30/20 10/30/20 Range/Units 20:03 20:03 21:06 WBC (4.8-10.8) X10*3/uL RBC (4.20-5.50) X10*6/uL Hgb (12.0-16.0) g/dl Hct (37-47) % MCV (80-98) fL MCH (27.0-33.0) pg MCHC (31.0-35.0) g/dl RDW (11.0-16.0) % Plt Count (160-400) X10*3/uL MPV (9.4-12.3) fL Immature Gran % (Auto) (0.0-0.4) % Neut % (Auto) (45-73) % Lymph % (Auto) (20-40) % [place] % (Auto) (2-11) % Eos % (Auto) (0-4) % Baso % (Auto) (0-2) % Lymph # (Auto) (1.2-4.9) X10*3/uL [place] # (Auto) (0.1-1.2) X10*3/uL Eos # (Auto) (0.0-0.4) X10*3/uL Baso # (Auto) (0.0-0.2) X10*3/uL Abs Immat Gran (auto) (0.00-0.03) X10*3/uL Absolute Neuts (auto) (2.0-8.3) X10*3/uL Absolute Nucleated RBC (0.0-0.012) X10*3/uL Nucleated RBC % (auto) (0.0-0.2) /100WBC Sodium (135-145) mmol/L Potassium (3.3-5.1) mmol/L Chloride (96-108) mmol/L Carbon Dioxide (22-29) mmol/L Anion Gap (12-20) BUN (9-16) mg/dL Creatinine (0.5-1.4) mg/dL Estim Creat Clear Calc Estimated GFR Random Glucose (60-115) mg/dL Lactic Acid 0.5 (0.5-2.0) mmol/L Calcium (8.4-10.2) mg/dL Total Bilirubin (0.0-1.0) mg/dL Direct Bilirubin (0.0-0.5) mg/dL AST (5-31) U/L ALT (0-31) U/L Alkaline Phosphatase (39-117) U/L Troponin I High Sens (<3.5-17.0) ng/L B-Natriuretic Peptide (<100) pg/mL Total Protein (6.5-8.0) g/dL Albumin (3.5-5.0) g/dL Lipase (8-78) U/L Urine Color YELLOW Urine Appearance HAZY Urine pH 6.0 (5.0-8.0) Ur Specific [place] 1.020 (1.005-1.025) Urine Protein 3+ H (NEG-TRACE) MG/DL Urine Glucose (UA) 100 H (NEG) MG/DL Urine Ketones NEG (NEG) MG/DL Urine Blood NEG (NEG) Urine Nitrite NEG (NEG) Ur Leukocyte Esterase NEG (NEG) Urine RBC 0 (0) /HPF Urine WBC 0-2 (0-4) /HPF Ur Squamous Epith Cells 1+ /LPF Urine Bacteria 4+ /LPF Coronavirus (PCR) NEGATIVE (Negative) Influenza Type A (PCR) NEGATIVE (Negative) Influenza Type B (PCR) NEGATIVE (Negative) RSV RNA Qual (PCR) NEGATIVE (Negative) 10/30/20 Range/Units 22:56 WBC (4.8-10.8) X10*3/uL RBC (4.20-5.50) X10*6/uL Hgb (12.0-16.0) g/dl Hct (37-47) % MCV (80-98) fL MCH (27.0-33.0) pg MCHC (31.0-35.0) g/dl RDW (11.0-16.0) % Plt Count (160-400) X10*3/uL MPV (9.4-12.3) fL Immature Gran % (Auto) (0.0-0.4) % Neut % (Auto) (45-73) % Lymph % (Auto) (20-40) % [place] % (Auto) (2-11) % Eos % (Auto) (0-4) % Baso % (Auto) (0-2) % Lymph # (Auto) (1.2-4.9) X10*3/uL [place] # (Auto) (0.1-1.2) X10*3/uL Eos # (Auto) (0.0-0.4) X10*3/uL Baso # (Auto) (0.0-0.2) X10*3/uL Abs Immat Gran (auto) (0.00-0.03) X10*3/uL Absolute Neuts (auto) (2.0-8.3) X10*3/uL Absolute Nucleated RBC (0.0-0.012) X10*3/uL Nucleated RBC % (auto) (0.0-0.2) /100WBC Sodium (135-145) mmol/L Potassium (3.3-5.1) mmol/L Chloride (96-108) mmol/L Carbon Dioxide (22-29) mmol/L Anion Gap (12-20) BUN (9-16) mg/dL Creatinine (0.5-1.4) mg/dL Estim Creat Clear Calc Estimated GFR Random Glucose (60-115) mg/dL Lactic Acid (0.5-2.0) mmol/L Calcium (8.4-10.2) mg/dL Total Bilirubin (0.0-1.0) mg/dL Direct Bilirubin (0.0-0.5) mg/dL AST (5-31) U/L ALT (0-31) U/L Alkaline Phosphatase (39-117) U/L Troponin I High Sens 11.3 (<3.5-17.0) ng/L B-Natriuretic Peptide (<100) pg/mL Total Protein (6.5-8.0) g/dL Albumin (3.5-5.0) g/dL Lipase (8-78) U/L Urine Color Urine Appearance Urine pH (5.0-8.0) Ur Specific [place] (1.005-1.025) Urine Protein (NEG-TRACE) MG/DL Urine Glucose (UA) (NEG) MG/DL Urine Ketones (NEG) MG/DL Urine Blood (NEG) Urine Nitrite (NEG) Ur Leukocyte Esterase (NEG) Urine RBC (0) /HPF Urine WBC (0-4) /HPF Ur Squamous Epith Cells /LPF Urine Bacteria /LPF Coronavirus (PCR) (Negative) Influenza Type A (PCR) (Negative) Influenza Type B (PCR) (Negative) RSV RNA Qual (PCR) (Negative) Imaging Data Chest x-ray: Radiologist's impression: No acute pulmonary pathology. ECG Data Interpretation: Normal sinus rhythm at 71 beats per minutes, left axis deviation, normal intervals, diffuse ST-T nonspecific changes. Discharge Plan Discharge Clinical Impression: Generalized weakness, Chest pain Patient Disposition: Home, Self-Care Instructions: Chest Pain (ED) Prescriptions: No Action cholecalciferol (vitamin D3) 50 mcg (2,000 unit) capsule 50 mcg PO DAILY Qty: 30 RF: 11 omeprazole 20 mg capsule,delayed release(DR/EC) 20 mg PO BID Qty: 60 RF: 5 cefuroxime axetil 250 mg tablet 250 mg PO Q12H Qty: 6 RF: 0 hydralazine 100 mg tablet 100 mg PO Q8H 30 Days Qty: 90 RF: 2 (DME) pen needle, diabetic [BD Swetha 2nd Gen Pen Needle] 32 gauge x 5/32 needle See Rx Instructions .MEDSUPPLY Qty: 400 RF: 4 (DME) FreeStyle Lite Strips Strip See Rx Instructions .MEDSUPPLY Qty: 300 RF: 6 (DME) lancets [TRUEplus Lancets] 33 gauge misc See Rx Instructions .ROUTE .MEDSUPPLY Qty: 300 RF: 3 amlodipine 10 mg tablet 10 mg PO DAILY Qty: 30 RF: 5 doxazosin 4 mg tablet 12 mg PO DAILY Qty: 90 RF: 2 ferrous gluconate 324 mg (37.5 mg iron) tablet 324 mg PO BID Qty: 60 RF: 2 carvedilol 6.25 mg tablet 6.25 mg PO BID Qty: 60 RF: 5 levothyroxine 75 mcg tablet 75 mcg PO DAILY 90 Days Qty: 90 RF: 1 atorvastatin 80 mg tablet 80 mg PO BEDTIME Qty: 30 RF: 6 isosorbide mononitrate 120 mg tablet extended release 24 hr 120 mg PO DAILY Qty: 30 RF: 3 polyethylene glycol 3350 [Miralax] 17 gram Powder In Packet 17 g PO DAILY PRN (Reason: Constipation) RF: 0 linagliptin 5 mg tablet 5 mg PO DAILY RF: 0 Referrals: Yuki De Dios MD [Primary Care Provider] - 2 days
[2020-10-30 20:08] VITALS: BP 163/50; PULSE 73; RESP 16; TEMP 36.7; O2SAT 99
[2020-10-30 20:12] LABS: MANUAL DIFF FLAG NO
[2020-10-30 20:13] LABS: Basophils Percent Auto 0.2 % (0-2); Eosinophils Absolute Auto 0.1 X10*3/uL (0.0-0.4); Eosinophils Percent Auto 1.5 % (0-4); Hematocrit 25.3 % (37-47); Hemoglobin 8.4 g/dl (12.0-16.0); Imm Gran Abs Auto 0.05 X10*3/uL (0.00-0.03); Imm Gran Pct Auto 0.6 % (0.0-0.4); Lymphocytes Absolute Auto 1.1 X10*3/uL (1.2-4.9); Lymphocytes Percent Auto 13.8 % (20-40); Mean Corpuscular HGB Conc 33.2 g/dl (31.0-35.0); Mean Corpuscular Hemoglobin 29.4 pg (27.0-33.0); Mean Corpuscular Volume 88.5 fL (80-98); Mean Platelet Volume 9.8 fL (9.4-12.3); Monocytes Absolute Auto 0.6 X10*3/uL (0.1-1.2); Monocytes Percent Auto 6.8 % (2-11); Neutrophils Absolute Auto 6.4 X10*3/uL (2.0-8.3); Neutrophils Percent Auto 77.1 % (45-73); Platelet Count 215 X10*3/uL (160-400); Red Blood Count 2.86 X10*6/uL (4.20-5.50); Red Cell Distribution Width 14.3 % (11.0-16.0); White Blood Count 8.3 X10*3/uL (4.8-10.8)
[2020-10-30 20:34] LABS: Lactic Acid 0.5 mmol/L (0.5-2.0)
[2020-10-30 20:43] LABS: Alanine Aminotransferase 15 U/L (0-31); Albumin Level 2.4 g/dL (3.5-5.0); Alkaline Phosphatase 119 U/L (39-117); Aspartate Amino Transferase 38 U/L (5-31); Bilirubin Direct 0.2 mg/dL (0.0-0.5); Bilirubin Total 0.4 mg/dL (0.0-1.0); Blood Urea Nitrogen 25 mg/dL (9-16); Calcium 7.9 mg/dL (8.4-10.2); Creatinine Clr Calc Pharmacy 16.7; Estimated Glomerular Filt Rate 21; Glucose Random 113 mg/dL (60-115); Lipase 65 U/L (8-78)
[2020-10-30 20:51] LABS: B Type Natriuretic Peptide 234 pg/mL (<100); Troponin-I High Sensitivity 10.1 ng/L (<3.5-17.0)
[2020-10-30 20:52] LABS: Anion Gap 12 (12-20); Carbon Dioxide 20 mmol/L (22-29); Chloride 113 mmol/L (96-108); Potassium 4.2 mmol/L (3.3-5.1); Sodium 141 mmol/L (135-145)
[2020-10-30 20:55] LABS: Influenza A PCR NEGATIVE (Negative); Influenza B PCR NEGATIVE (Negative); Resp Syncy Virus RNA Qual PCR NEGATIVE (Negative); SARS COV2 PCR INHOUSE NEGATIVE (Negative)
[2020-10-30 21:12] LABS: Glucose Urine UA 100 MG/DL (NEG); Leukocyte Esterase Urine NEG (NEG); Nitrite Urine NEG (NEG); UACC Culture Trigger NO; Urine Blood NEG (NEG); Urine Ketones NEG (NEG); Urine Protein 3+ MG/DL (NEG-TRACE)
[2020-10-30 21:20] LABS: Appearance Urine HAZY; Color Urine YELLOW
[2020-10-30 21:23] LABS: Bacteria Urine 4+ /LPF; RBC Urine 0 /HPF (0); Squamous Epithelial Cell Urine 1+ /LPF; WBC Urine 0-2 /HPF (0-4)
[2020-10-30 23:28] LABS: Troponin-I High Sensitivity 11.3 ng/L (<3.5-17.0)
[2020-10-31] VITALS: BP 172/54; PULSE 72; RESP 18; TEMP 36.9; O2SAT 98
[2020-10-31 04:00] VITALS: BP 171/56; PULSE 69; RESP 18; O2SAT 96
[2020-10-31 07:15] VITALS: BP 150/53; PULSE 82; RESP 16; TEMP 36.9; O2SAT 99
== END 2020-10-31 08:20 | disposition home or self-care (01) ==
PROVIDERS: Emergency Provider Emergency Medicine; PCP Internal Medicine
DX: R07.9 Chest pain, unspecified (principal); R06.00 Dyspnea, unspecified; J44.9 Chronic obstructive pulmonary disease, unspecified; R53.1 Weakness; I25.10 Atherosclerotic heart disease of native coronary artery without angina pectoris; Z79.899 Other long term (current) drug therapy; Z20.822 Contact with and (suspected) exposure to COVID-19
CPT/HCPCS: 0241U; 36415; 71045; 80048; 80076; 81001; 83605; 83690; 83880; 84484; 85025; 87040; 93005; 99285

== ENCOUNTER 2020-11-23 15:02 | Emergency (ER) | payer MEDICARE, MEDICAID, SELFPAY ==
--- NOTE | ~2020-11-23 | XR_ITS ---
EXAMINATION: XR CHEST CLINICAL INFORMATION: Shortness of breath COMPARISON: 10/30/2020 TECHNIQUE: Frontal view of the chest was obtained. FINDINGS: Cardiac leads overlie the chest. Lung volumes are low. No consolidation, edema, or effusion. No pneumothorax. The cardiomediastinal silhouette is within normal limits of size with a calcified aorta. XR/XR chest 1V IMPRESSION: No acute pulmonary finding.
--- NOTE | ~2020-11-23 | CT_ITS ---
EXAMINATION: CT HEAD WITHOUT CONTRAST CT CERVICAL SPINE WITHOUT CONTRAST CLINICAL INFORMATION: Trauma. COMPARISON: CT head April 05, 2020, CT head and cervical spine March 08, 2020 TECHNIQUE: Imaging was performed from the skull base to vertex without intravenous administration of contrast. In addition, helical noncontrast CT imaging was acquired through the cervical spine and source images were reviewed along with axial reconstructions and sagittal and coronal MPRs. [This CT examination was performed using dose optimization techniques as appropriate, variously including the following: *Automated exposure control *Adjustment of mA and/or kV according to patient size (this includes techniques or standardized protocols for targeted exams where dose is matched to indication/reason for exam; i.e. extremities or head) *Use of iterative reconstruction technique] DLP: 1053 mGy-cm FINDINGS: HEAD: No intracranial mass, hemorrhage, or midline shift is visualized. There is generalized global volume loss. There is mild prominence of the ventricles and the sulci . There is mild hypodensity of the periventricular white matter due to chronic small vessel ischemic disease. There are vascular calcifications of the internal carotid arteries bilaterally. 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 Chronic small lacunar infarct in the left thalamus and bilateral basal ganglia. No extra-axial collections are identified. The paranasal sinuses and mastoid air cells are well aerated. CERVICAL SPINE: There is no evidence of acute cervical spine fracture. Vertebral bodies remain normal in height. Cervical vertebrae have normal alignment. There is multilevel degenerative spondylosis of the cervical spine with disc height narrowing and endplate spurs and facet joint arthrosis Status post right thyroidectomy. Limited assessment of the lung apices is unremarkable. CT/CT cervical spine wo con IMPRESSION: 1. No acute intracranial pathology. 2. No CT evidence of acute cervical spine fracture or traumatic subluxation
[2020-11-23 15:19] VITALS: BP 182/52; BP 183/47; PULSE 68; PULSE 71; RESP 20; TEMP 37.1; O2SAT 98; O2SAT 99; BMI 32.7
[2020-11-23 16:05] LABS: MANUAL DIFF FLAG NO
[2020-11-23 16:08] LABS: Basophils Percent Auto 0.5 % (0-2); Eosinophils Absolute Auto 0.4 X10*3/uL (0.0-0.4); Hematocrit 27.6 % (37-47); Hemoglobin 9.2 g/dl (12.0-16.0); Imm Gran Abs Auto 0.03 X10*3/uL (0.00-0.03); Imm Gran Pct Auto 0.5 % (0.0-0.4); Lymphocytes Absolute Auto 1.5 X10*3/uL (1.2-4.9); Lymphocytes Percent Auto 24.2 % (20-40); Mean Corpuscular HGB Conc 33.3 g/dl (31.0-35.0); Mean Corpuscular Hemoglobin 29.4 pg (27.0-33.0); Mean Corpuscular Volume 88.2 fL (80-98); Mean Platelet Volume 9.5 fL (9.4-12.3); Monocytes Absolute Auto 0.4 X10*3/uL (0.1-1.2); Monocytes Percent Auto 6.5 % (2-11); Neutrophils Absolute Auto 3.7 X10*3/uL (2.0-8.3); Neutrophils Percent Auto 61.3 % (45-73); Platelet Count 246 X10*3/uL (160-400); Red Blood Count 3.13 X10*6/uL (4.20-5.50); Red Cell Distribution Width 15.1 % (11.0-16.0)
[2020-11-23 16:17] VITALS: PULSE 71; RESP 19; TEMP 37.3; O2SAT 99
--- NOTE | 2020-11-23 16:18 | ED_ITS ---
HPI - Fall General Chief Complaint: Fall <DIANA Saab - Last Filed: 11/23/20 20:09> Stated Complaint: fell <DIANA Saab Last Filed: 11/23/20 20:09> Time Seen by Provider: 11/23/20 17:28 <DIANA Saab Last Filed: 11/23/20 20:09> Source: patient <DIANA Saab Last Filed: 11/23/20 20:09> Mode of arrival: ambulatory <DIANA Saba Last Filed: 11/23/20 20:09> History of Present Illness HPI Narrative: 79-year-old female PMHx CKD, AFib, NSTEMI, HTN, anemia, gastritis, COPD, BIBA c/o lightheadedness/dizziness and fall off toilet yesterday. Patient does not remember events clearly, reports suspected hit head, unknown LOC, unknown time on ground, states EMS helped pick her up, reports continued lighthe adedness/dizziness. Also reports generalized fatigue/weakness and SOB. Denies fever, chills, nausea/vomiting, dysuria/hematuria <DIANA Saab Last Filed: 11/23/20 20:09> MD complaint: fall <DIANA Saab Last Filed: 11/23/20 20:09> Related Data Home Medications: Home Medications Medication Instructions Recorded Confirmed polyethylene glycol 3350 17 gram 17 g PO DAILY PRN 04/05/20 10/30/20 oral powder packet (Miralax) linagliptin 5 mg tablet 5 mg PO DAILY 09/26/20 10/30/20 Previous Rx's Medication Instructions Recorded cholecalciferol (vitamin D3) 50 50 mcg PO DAILY #30 cap 02/14/20 mcg (2,000 unit) capsule omeprazole 20 mg capsule,delayed 20 mg PO BID #60 cap 02/20/20 release cefuroxime axetil 250 mg tablet 250 mg PO Q12H #6 tab 04/24/20 pen needle, diabetic 32 gauge x #400 ea 07/23/20 (BD Swetha 2nd Gen Pen Needle) blood sugar diagnostic (FreeStyle #300 ea 08/17/20 Lite Strips) lancets 33 gauge (TRUEplus Lancets) #300 ea 08/17/20 amlodipine 10 mg tablet 10 mg PO DAILY #30 tab 09/12/20 doxazosin 4 mg tablet 12 mg PO DAILY #90 tab 09/12/20 ferrous gluconate 324 mg (37.5 mg 324 mg PO BID #60 tab 09/19/20 iron) tablet carvedilol 6.25 mg tablet 6.25 mg PO BID #60 tab 09/30/20 levothyroxine 75 mcg tablet 75 mcg PO DAILY 90 Days #90 tab 10/15/20 atorvastatin 80 mg tablet 80 mg PO BEDTIME #30 tab 10/23/20 isosorbide mononitrate 120 mg 120 mg PO DAILY #30 tab 10/23/20 tablet,extended release 24 hr hydralazine 100 mg tablet 100 mg PO Q8H 30 Days #90 tab 11/14/20 <DIANA Saab Last Filed: 11/23/20 20:09> Allergies/Adverse Reactions: Allergies Allergy/AdvReac Type Severity Reaction Status Date / Time oxycodone Allergy Unknown rash Verified 09/24/20 21:32 <DIANA Saab Last Filed: 11/23/20 20:09> Review of Systems Review of Systems: Constitutional: No Fever, No Chills, + Fatigue, No Malaise ENT/Mouth: No Ear Pain, No Nasal Congestion, No sore throat, No Rhinorrhea Eyes: No Eye Pain, No Vision Changes Cardiovascular: No Chest Pain, + SOB, No Edema, No Palpitations Respiratory: No Cough, No Dyspnea Gastrointestinal: No Nausea, No Vomiting, No Diarrhea, No Abdominal pain Genitourinary:No Dysuria, No Urinary Frequency, No Hematuria Musculoskeletal: No joint pain, No Myalgias, No Joint Swelling Skin: No Skin Lesions, No rash Neuro: + Weakness, No Numbness, No Paresthesias, Unknown Loss of Consciousness, + lightheaded/ Dizziness, No Headache <DIANA Saab Last Filed: 11/23/20 20:09> Yes all other systems are reviewed and are negative <DIANA Saab Last Filed: 11/23/20 20:09> Neurologic: Denies Abnormal speech present <DIANA Saab Last Filed: 11/23/20 20:09> [facility] Past Medical History Attestation statement: The following information was validated with the patient. <DIANA Saab Last Filed: 11/23/20 20:09> Medical History: Medical History Acute on chronic kidney failure Acute UTI Anemia in chronic kidney disease Bronchitis CAD (coronary artery disease) Carotid stenosis, bilateral CKD (chronic kidney disease) stage 4, GFR 15-29 ml/min COPD (chronic obstructive pulmonary disease) Diabetes mellitus with chronic kidney disease, with long-term current use of insulin Diabetic nephropathy associated with type 2 diabetes mellitus Dyslipidemia Gastritis GERD (gastroesophageal reflux disease) HTN (hypertension) Hypothyroid Left thalamic infarction Obesity RAISA (obstructive sleep apnea) Paroxysmal atrial fibrillation Pedal edema Post-surgical hypothyroidism Primary thyroid cancer Pulmonary nodule Respiratory crackles at both lung bases Sepsis Thyroid cancer <DIANA Saab - Last Filed: 11/23/20 20:09> Surgical History: Surgical History H/O angioplasty H/O heart artery stent History of thyroidectomy Hx of appendectomy S/P JOHN-BSO (~1997) <DIANA Saab - Last Filed: 11/23/20 20:09> Family History Family History: Family History Father CVD (cardiovascular disease) Mother CVD (cardiovascular disease) Brother CVD (cardiovascular disease) Parkinson disease <DIANA Saab - Last Filed: 11/23/20 20:09> Social History Social History: Social History Household Members: Spouse Housing: Other Housing Other:: mobile home Do you presently have visiting nurse or other home services: Yes Alcohol intake: unknown Patient Tobacco Use Status: Tobacco use Unknown Second Hand Smoke Exposure: No Use of substances other than those prescribed or required for medical reasons: No Advance Directives: Yes Advance Directives on File: Yes Advance Directives Date on File: 03/08/20 service: No Current occupational status: retired <DIANA Saab - Last Filed: 11/23/20 20:09> Physical Exam Vital Signs: Vital Signs: Last Vital Signs Temp 98.4 F 11/24/20 02:22 Pulse 75 11/24/20 02:52 Resp 16 11/24/20 02:22 BP 199/74 H 11/24/20 02:52 Pulse Ox 98 11/24/20 02:22 Body Mass Index 32.7 <DIANA Saab - Last Filed: 11/23/20 20:09> Vital Signs: Last Vital Signs Temp 98.4 F 11/24/20 02:22 Pulse 75 11/24/20 02:52 Resp 16 11/24/20 02:22 BP 199/74 H 11/24/20 02:52 Pulse Ox 98 11/24/20 02:22 Body Mass Index 32.7 <Stefany Pickett MD - Last Filed: 11/24/20 03:38> Const: General: cooperative and healthy appearing <DIANA Saab - Last Filed: 11/23/20 20:09> Orientation/consciousness: patient oriented x3 <DIANA Saab - Last Filed: 11/23/20 20:09> Limitations: no limitations <DIANA Saab - Last Filed: 11/23/20 20:09> HENMT: Head: Yes normal to inspection <DIANA Saab - Last Filed: 11/23/20 20:09> Ears: hearing grossly normal bilaterally <DINAA Saab - Last Filed: 11/23/20 20:09> General nose exam: Normal external nose present <DIANA Saab - Last Filed: 11/23/20 20:09> Face and sinus: Yes normal facial exam <DIANA Saab - Last Filed: 11/23/20 20:09> Eyes: General: appearance normal, both eyes and all related structures <DIANA Saab - Last Filed: 11/23/20 20:09> EOM: EOMs intact bilaterally <DIANA Saab - Last Filed: 11/23/20 20:09> Neck: Neck: Yes normal visual inspection <DIANA Saab - Last Filed: 11/23/20 20:09> Resp: Effort & Inspection: normal respiratory effort <DIANA Saab - Last Filed: 11/23/20 20:09> Auscultation: clear to auscultation bilaterally, no rales, no rhonchi and no wheezes <[facility] - Last Filed: 11/23/20 20:09> Cardio: Rate: regular rate <Mary Sharma PA - Last Filed: 11/23/20 20:09> Heart sounds: S1 normal heart sound present and S2 normal heart sound present <Mary Sharma, PA - Last Filed: 11/23/20 20:09> GI: Inspection: Yes normal to inspection <Mary Sharma PA - Last Filed: 0 11/23/20 20:09> Palpation (GI): Soft to palpation, nontender, no guarding and not rigid <Mary Sharma, PA - Last Filed: 11/23/20 20:09> Skin: Rashes: no rashes <Mary Sharma PA - Last Filed: 11/23/20 20:09> Wounds: no wounds <Mary Sharma PA - Last Filed: 11/23/20 20:09> Neuro: General: patient oriented x3, tone normal, moves all extremities, no focal motor deficits and CN's II-XI intact bilaterally <Mary Sharma PA - Last Filed: 11/23/20 20:09> Cranial nerves: Yes CN's II-XII intact bilaterally <Mary Sharma, PA - Last Filed: 11/23/20 20:09> Cognition (Neuro): normal cognition <Mary Sharma PA - Last Filed: 11/23/20 20:09> Speech: No Abnormal speech present <Mary Sharma PA - Last Filed: 11/23/20 20:09> Gait exam (Neuro): Normal gait present <Mary Sharma PA - Last Filed: 11/23/20 20:09> Motor exam (neuro): 5/5 motor strength present throughout and Pronator motor fu nction not present <Mary Sharma PA - Last Filed: 11/23/20 20:09> Extrem: Other: +1 bilateral lower extremity pitting edema <Mary Sharma PA - Last Filed: 11/23/20 20:09> General: Yes normal to inspection <Mary Sharma PA - Last Filed: 11/23/20 20:09> Course Course Course Narrative: -no leukocytosis, H&H at patient's baseline, renal dysfunction at patient's baseline, CPK 238 -troponin 12.8 > will obtain 3 hour repeat. BNP 196 chronically elevated, labs otherwise unremarkable -COVID-19 negative -1740--CT head/brain wo con/ CT cervical spine wo con IMPRESSION: 1. No acute intracranial pathology. 2. No CT evidence of acute cervical spine fracture or traumatic subluxation 1818-- XR chest 1V IMPRESSION: No acute pulmonary finding -1938--UA unremarkable --1999--ED care transferred to Dr. Pickett pending completion of IVF, orthostatics, and ambulation trial. Anticipated DC home <DIANA Saab - Last Filed: 11/23/20 20:09> Reevaluation(s) Reevaluation #1: On re-evaluation and review of entire workup and after discussions with collateral information obtained from the spouse. Patient still appears to be somewhat weakened and unsteady, and her feels that she needs additional support. Case management and physical therapy will be involved. <Stefany Pickett MD - Last Filed: 11/24/20 03:38> MDM - Fall MDM Narrative Medical decision making narrative: 79-year-old female PMHx CKD, AFib, NSTEMI, HTN, anemia, gastritis, COPD, BIBA c/o lightheadedness/dizziness and fall off toilet yesterday. Patient does not remember events clearly, reports suspected hit head, unknown LOC, unknown time on ground, states EMS helped pick her up, reports continued lightheadedness/dizziness. Also reports generalized fatigue/weakness and SOB. On exam VSS, NAD, no focal neuro deficits, bilateral 1+ pitting edema, lungs CTA. Concern for metabolic/infectious etiology vs ICH. Patient is poor historian Plan: EKG, labs, UA, CXR, head/C-spine CT, IVF orthostatic vital signs, reassess <DIANA Saab - Last Filed: 11/23/20 20:09> Medical Records Attestation: I reviewed the patient's medical records. <DIANA Saab - Last Filed: 11/23/20 20:09> Lab Data Attestation: I reviewed the patient's lab results. <DIANA Saab - Last Filed: 11/23/20 20:09> Result diagrams: : 11/23/20 16:01 11/23/20 16:01 <DIANA Saab - Last Filed: 11/23/20 20:09> Labs: Lab Results 11/23/20 11/23/20 11/23/20 Range/Units 16:01 16:01 16:01 WBC 6.0 (4.8-10.8) X10*3/uL RBC 3.13 L (4.20-5.50) X10*6/uL Hgb 9.2 L (12.0-16.0) g/dl Hct 27.6 L (37-47) % MCV 88.2 (80-98) fL MCH 29.4 (27.0-33.0) pg MCHC 33.3 (31.0-35.0) g/dl RDW 15.1 (11.0-16.0) % Plt Count 246 (160-400) X10*3/uL MPV 9.5 (9.4-12.3) fL Immature Gran % (Auto) 0.5 H (0.0-0.4) % Neut % (Auto) 61.3 (45-73) % Lymph % (Auto) 24.2 (20-40) % Cotton % (Auto) 6.5 (2-11) % Eos % (Auto) 7.0 H (0-4) % Baso % (Auto) 0.5 (0-2) % Lymph # (Auto) 1.5 (1.2-4.9) X10*3/uL Cotton # (Auto) 0.4 (0.1-1.2) X10*3/uL Eos # (Auto) 0.4 (0.0-0.4) X10*3/uL Baso # (Auto) 0.0 (0.0-0.2) X10*3/uL Abs Immat Gran (auto) 0.03 (0.00-0.03) X10*3/uL Absolute Neuts (auto) 3.7 (2.0-8.3) X10*3/uL Absolute Nucleated RBC 0.000 (0.0-0.012) X10*3/uL Nucleated RBC % (auto) 0.0 (0.0-0.2) /100WBC Sodium 141 (135-145) mmol/L Potassium 4.0 (3.3-5.1) mmol/L Chloride 113 H (96-108) mmol/L Carbon Dioxide 20 L (22-29) mmol/L Anion Gap 12 (12-20) BUN 21 H (9-16) mg/dL Creatinine 2.37 H (0.5-1.4) mg/dL Estim Creat Clear Calc 17.2 Estimated GFR 20 Random Glucose 88 (60-115) mg/dL Calcium 7.9 L (8.4-10.2) mg/dL Magnesium 1.7 (1.6-2.6) mg/dL Total Bilirubin 0.4 (0.0-1.0) mg/dL Direct Bilirubin 0.2 (0.0-0.5) mg/dL AST 38 H (5-31) U/L ALT 18 (0-31) U/L Alkaline Phosphatase 125 H (39-117) U/L Total Creatine Kinase 238 H D (26-140) U/L Troponin I High Sens 12.8 (<3.5-17.0) ng/L B-Natriuretic Peptide 196 H (<100) pg/mL Total Protein 4.9 L (6.5-8.0) g/dL Albumin 2.4 L (3.5-5.0) g/dL Lipase 87 H (8-78) U/L Urine Color Urine Appearance Urine pH (5.0-8.0) Ur Specific [place] (1.005-1.025) Urine Protein (NEG-TRACE) MG/DL Urine Glucose (UA) (NEG) MG/DL Urine Ketones (NEG) MG/DL Urine Blood (NEG) Urine Nitrite (NEG) Ur Leukocyte Esterase (NEG) Urine RBC (0) /HPF Urine WBC (0-4) /HPF Ur Squamous Epith Cells /LPF Amorphous Sediment /LPF Urine Bacteria /LPF Urine Mucus /LPF COVID-19 (ADRIANA) (Negative) COVID-19 Clin Com 11/23/20 11/23/20 11/23/20 Range/Units 16:01 18:11 19:10 WBC (4.8-10.8) X10*3/uL RBC (4.20-5.50) X10*6/uL Hgb (12.0-16.0) g/dl Hct (37-47) % MCV (80-98) fL MCH (27.0-33.0) pg MCHC (31.0-35.0) g/dl RDW (11.0-16.0) % Plt Count (160-400) X10*3/uL MPV (9.4-12.3) fL Immature Gran % (Auto) (0.0-0.4) % Neut % (Auto) (45-73) % Lymph % (Auto) (20-40) % Cotton % (Auto) (2-11) % Eos % (Auto) (0-4) % Baso % (Auto) (0-2) % Lymph # (Auto) (1.2-4.9) X10*3/uL Cotton # (Auto) (0.1-1.2) X10*3/uL Eos # (Auto) (0.0-0.4) X10*3/uL Baso # (Auto) (0.0-0.2) X10*3/uL Abs Immat Gran (auto) (0.00-0.03) X10*3/uL Absolute Neuts (auto) (2.0-8.3) X10*3/uL Absolute Nucleated RBC (0.0-0.012) X10*3/uL Nucleated RBC % (auto) (0.0-0.2) /100WBC Sodium (135-145) mmol/L Potassium (3.3-5.1) mmol/L Chloride (96-108) mmol/L Carbon Dioxide (22-29) mmol/L Anion Gap (12-20) BUN (9-16) mg/dL Creatinine (0.5-1.4) mg/dL Estim Creat Clear Calc Estimated GFR Random Glucose (60-115) mg/dL Calcium (8.4-10.2) mg/dL Magnesium (1.6-2.6) mg/dL Total Bilirubin (0.0-1.0) mg/dL Direct Bilirubin (0.0-0.5) mg/dL AST (5-31) U/L ALT (0-31) U/L Alkaline Phosphatase (39-117) U/L Total Creatine Kinase (26-140) U/L Troponin I High Sens 11.4 (<3.5-17.0) ng/L B-Natriuretic Peptide (<100) pg/mL Total Protein (6.5-8.0) g/dL Albumin (3.5-5.0) g/dL Lipase (8-78) U/L Urine Color YELLOW Urine Appearance HAZY Urine pH 6.5 (5.0-8.0) Ur Specific [place] 1.010 (1.005-1.025) Urine Protein 2+ H (NEG-TRACE) MG/DL Urine Glucose (UA) NEG (NEG) MG/DL Urine Ketones NEG (NEG) MG/DL Urine Blood 1+ H (NEG) Urine Nitrite NEG (NEG) Ur Leukocyte Esterase NEG (NEG) Urine RBC 0-2 (0) /HPF Urine WBC 0 (0-4) /HPF Ur Squamous Epith Cells 1+ /LPF Amorphous Sediment 1+ /LPF Urine Bacteria 2+ /LPF Urine Mucus 1+ /LPF COVID-19 (ADRIANA) Negative (Negative) COVID-19 Clin Com See Note <DIANA Saab - Last Filed: 11/23/20 20:09> Lab Results 11/23/20 11/23/20 11/23/20 Range/Units 16:01 16:01 16:01 WBC 6.0 (4.8-10.8) X10*3/uL RBC 3.13 L (4.20-5.50) X10*6/uL Hgb 9.2 L (12.0-16.0) g/dl Hct 27.6 L (37-47) % MCV 88.2 (80-98) fL MCH 29.4 (27.0-33.0) pg MCHC 33.3 (31.0-35.0) g/dl RDW 15.1 (11.0-16.0) % Plt Count 246 (160-400) X10*3/uL MPV 9.5 (9.4-12.3) fL Immature Gran % (Auto) 0.5 H (0.0-0.4) % Neut % (Auto) 61.3 (45-73) % Lymph % (Auto) 24.2 (20-40) % Cotton % (Auto) 6.5 (2-11) % Eos % (Auto) 7.0 H (0-4) % Baso % (Auto) 0.5 (0-2) % Lymph # (Auto) 1.5 (1.2-4.9) X10*3/uL Cotton # (Auto) 0.4 (0.1-1.2) X10*3/uL Eos # (Auto) 0.4 (0.0-0.4) X10*3/uL Baso # (Auto) 0.0 (0.0-0.2) X10*3/uL Abs Immat Gran (auto) 0.03 (0.00-0.03) X10*3/uL Absolute Neuts (auto) 3.7 (2.0-8.3) X10*3/uL Absolute Nucleated RBC 0.000 (0.0-0.012) X10*3/uL Nucleated RBC % (auto) 0.0 (0.0-0.2) /100WBC Sodium 141 (135-145) mmol/L Potassium 4.0 (3.3-5.1) mmol/L Chloride 113 H (96-108) mmol/L Carbon Dioxide 20 L (22-29) mmol/L Anion Gap 12 (12-20) BUN 21 H (9-16) mg/dL Creatinine 2.37 H (0.5-1.4) mg/dL Estim Creat Clear Calc 17.2 Estimated GFR 20 Random Glucose 88 (60-115) mg/dL Calcium 7.9 L (8.4-10.2) mg/dL Magnesium 1.7 (1.6-2.6) mg/dL Total Bilirubin 0.4 (0.0-1.0) mg/dL Direct Bilirubin 0.2 (0.0-0.5) mg/dL AST 38 H (5-31) U/L ALT 18 (0-31) U/L Alkaline Phosphatase 125 H (39-117) U/L Total Creatine Kinase 238 H D (26-140) U/L Troponin I High Sens 12.8 (<3.5-17.0) ng/L B-Natriuretic Peptide 196 H (<100) pg/mL Total Protein 4.9 L (6.5-8.0) g/dL Albumin 2.4 L (3.5-5.0) g/dL Lipase 87 H (8-78) U/L Urine Color Urine Appearance Urine pH (5.0-8.0) Ur Specific [place] (1.005-1.025) Urine Protein (NEG-TRACE) MG/DL Urine Glucose (UA) (NEG) MG/DL Urine Ketones (NEG) MG/DL Urine Blood (NEG) Urine Nitrite (NEG) Ur Leukocyte Esterase (NEG) Urine RBC (0) /HPF Urine WBC (0-4) /HPF Ur Squamous Epith Cells /LPF Amorphous Sediment /LPF Urine Bacteria /LPF Urine Mucus /LPF COVID-19 (ADRIANA) (Negative) COVID-19 Clin Com 11/23/20 11/23/20 11/23/20 Range/Units 16:01 18:11 19:10 WBC (4.8-10.8) X10*3/uL RBC (4.20-5.50) X10*6/uL Hgb (12.0-16.0) g/dl Hct (37-47) % MCV (80-98) fL MCH (27.0-33.0) pg MCHC (31.0-35.0) g/dl RDW (11.0-16.0) % Plt Count (160-400) X10*3/uL MPV (9.4-12.3) fL Immature Gran % (Auto) (0.0-0.4) % Neut % (Auto) (45-73) % Lymph % (Auto) (20-40) % Cotton % (Auto) (2-11) % Eos % (Auto) (0-4) % Baso % (Auto) (0-2) % Lymph # (Auto) (1.2-4.9) X10*3/uL Cotton # (Auto) (0.1-1.2) X10*3/uL Eos # (Auto) (0.0-0.4) X10*3/uL Baso # (Auto) (0.0-0.2) X10*3/uL Abs Immat Gran (auto) (0.00-0.03) X10*3/uL Absolute Neuts (auto) (2.0-8.3) X10*3/uL Absolute Nucleated RBC (0.0-0.012) X10*3/uL Nucleated RBC % (auto) (0.0-0.2) /100WBC Sodium (135-145) mmol/L Potassium (3.3-5.1) mmol/L Chloride (96-108) mmol/L Carbon Dioxide (22-29) mmol/L Anion Gap (12-20) BUN (9-16) mg/dL Creatinine (0.5-1.4) mg/dL Estim Creat Clear Calc Estimated GFR Random Glucose (60-115) mg/dL Calcium (8.4-10.2) mg/dL Magnesium (1.6-2.6) mg/dL Total Bilirubin (0.0-1.0) mg/dL Direct Bilirubin (0.0-0.5) mg/dL AST (5-31) U/L ALT (0-31) U/L Alkaline Phosphatase (39-117) U/L Total Creatine Kinase (26-140) U/L Troponin I High Sens 11.4 (<3.5-17.0) ng/L B-Natriuretic Peptide (<100) pg/mL Total Protein (6.5-8.0) g/dL Albumin (3.5-5.0) g/dL Lipase (8-78) U/L Urine Color YELLOW Urine Appearance HAZY Urine pH 6.5 (5.0-8.0) Ur Specific [place] 1.010 (1.005-1.025) Urine Protein 2+ H (NEG-TRACE) MG/DL Urine Glucose (UA) NEG (NEG) MG/DL Urine Ketones NEG (NEG) MG/DL Urine Blood 1+ H (NEG) Urine Nitrite NEG (NEG) Ur Leukocyte Esterase NEG (NEG) Urine RBC 0-2 (0) /HPF Urine WBC 0 (0-4) /HPF Ur Squamous Epith Cells 1+ /LPF Amorphous Sediment 1+ /LPF Urine Bacteria 2+ /LPF Urine Mucus 1+ /LPF COVID-19 (ADRIANA) Negative (Negative) COVID-19 Clin Com See Note <Stefany Pickett MD - Last Filed: 11/24/20 03:38> Discharge Plan Discharge Clinical Impression: Lightheadedness, Fall <DIANA Saab - Last Filed: 11/23/20 20:09> Instructions: Dizziness (ED) <DIANA Saab - Last Filed: 11/23/20 20:09> Additional Instructions: Your blood work And imaging studies are at her baseline It is important that you are staying hydrated at home Please follow-up with your primary care doctor If her symptoms persist or worsen please return to the ED <DIANA Saab - Last Filed: 11/23/20 20:09> Prescriptions: No Action cholecalciferol (vitamin D3) 50 mcg (2,000 unit) capsule 50 mcg PO DAILY Qty: 30 RF: 11 omeprazole 20 mg capsule,delayed release(DR/EC) 20 mg PO BID Qty: 60 RF: 5 cefuroxime axetil 250 mg tablet 250 mg PO Q12H Qty: 6 RF: 0 (DME) pen needle, diabetic [BD Swetha 2nd Gen Pen Needle] 32 gauge x 5/32 needle See Rx Instructions .MEDSUPPLY Qty: 400 RF: 4 (DME) FreeStyle Lite Strips Strip See Rx Instructions .MEDSUPPLY Qty: 300 RF: 6 (DME) lancets [TRUEplus Lancets] 33 gauge misc See Rx Instructions .ROUTE .MEDSUPPLY Qty: 300 RF: 3 amlodipine 10 mg tablet 10 mg PO DAILY Qty: 30 RF: 5 doxazosin 4 mg tablet 12 mg PO DAILY Qty: 90 RF: 2 ferrous gluconate 324 mg (37.5 mg iron) tablet 324 mg PO BID Qty: 60 RF: 2 carvedilol 6.25 mg tablet 6.25 mg PO BID Qty: 60 RF: 5 levothyroxine 75 mcg tablet 75 mcg PO DAILY 90 Days Qty: 90 RF: 1 atorvastatin 80 mg tablet 80 mg PO BEDTIME Qty: 30 RF: 6 isosorbide mononitrate 120 mg tablet extended release 24 hr 120 mg PO DAILY Qty: 30 RF: 3 hydralazine 100 mg tablet 100 mg PO Q8H 30 Days Qty: 90 RF: 2 polyethylene glycol 3350 [Miralax] 17 gram Powder In Packet 17 g PO DAILY PRN (Reason: Constipation) RF: 0 linagliptin 5 mg tablet 5 mg PO DAILY RF: 0 <DIANA Saab - Last Filed: 11/23/20 20:09>
[2020-11-23 16:31] LABS: Anion Gap 12 (12-20); Blood Urea Nitrogen 21 mg/dL (9-16); Calcium 7.9 mg/dL (8.4-10.2); Carbon Dioxide 20 mmol/L (22-29); Chloride 113 mmol/L (96-108); Creatinine Clr Calc Pharmacy 17.2; Estimated Glomerular Filt Rate 20; Glucose Random 88 mg/dL (60-115); Sodium 141 mmol/L (135-145)
[2020-11-23 16:33] LABS: COVID-19 Test Negative (Negative)
[2020-11-23 16:37] LABS: Troponin-I High Sensitivity 12.8 ng/L (<3.5-17.0)
[2020-11-23 16:40] LABS: Alanine Aminotransferase 18 U/L (0-31); Albumin Level 2.4 g/dL (3.5-5.0); Alkaline Phosphatase 125 U/L (39-117); Aspartate Amino Transferase 38 U/L (5-31); Bilirubin Direct 0.2 mg/dL (0.0-0.5); Bilirubin Total 0.4 mg/dL (0.0-1.0); Lipase 87 U/L (8-78); Magnesium 1.7 mg/dL (1.6-2.6); Total Protein 4.9 g/dL (6.5-8.0)
[2020-11-23 16:46] LABS: B Type Natriuretic Peptide 196 pg/mL (<100)
--- NOTE | 2020-11-23 17:38 | ECG_ITS ---
Test Reason : FALL Blood Pressure : / mmHG Vent. Rate : 074 BPM Atrial Rate : 288 BPM P-R Int : 000 ms QRS Dur : 066 ms QT Int : 322 ms P-R-T Axes : 000 002 131 degrees QTc Int : 357 ms Accelerated Junctional rhythm T wave abnormality, consider inferior ischemia Abnormal ECG When compared with ECG of 30-OCT-2020 15:31, Junctional rhythm has replaced Sinus rhythm Nonspecific T wave abnormality now evident in Inferior leads QT has shortened Referred By: Mary Sharma Electronically Signed By:BERNARDINO BEAVERS
[2020-11-23 18:07] VITALS: BP 158/44; PULSE 80; RESP 16; TEMP 36.6; O2SAT 97
[2020-11-23] MEDS: 0.9 % Sodium Chloride 1,000 ML 999 ML IVCONT (18:12)
[2020-11-23] MEDS: Meclizine HCl 25 MG TABLET PO (18:12)
[2020-11-23 18:19] LABS: Glucose Urine UA NEG (NEG); Leukocyte Esterase Urine NEG (NEG); Nitrite Urine NEG (NEG); PH 6.5 (5.0-8.0); UACC Culture Trigger NO; Urine Blood 1+ (NEG); Urine Ketones NEG (NEG); Urine Protein 2+ MG/DL (NEG-TRACE)
[2020-11-23 18:27] LABS: Appearance Urine HAZY; Bacteria Urine 2+ /LPF; Color Urine YELLOW; Mucus Urine 1+ /LPF; RBC Urine 0-2 /HPF (0); Squamous Epithelial Cell Urine 1+ /LPF; WBC Urine 0 /HPF (0-4)
[2020-11-23 18:28] LABS: Amorphous Sediment Urine 1+ /LPF
[2020-11-23 19:48] LABS: Troponin-I High Sensitivity 11.4 ng/L (<3.5-17.0)
[2020-11-23 20:29] VITALS: BP 197/66; PULSE 70
[2020-11-23 20:30] VITALS: BP 182/60; PULSE 80
[2020-11-23 20:31] VITALS: BP 142/79; PULSE 104
[2020-11-24] VITALS (14 sets, daily range): BP systolic 138–199; BP diastolic 52–124; PULSE 59–97; RESP 15–20; TEMP 36.8–36.9; O2SAT 93–98
--- NOTE | 2020-11-24 02:24 | PC.NURSE ---
bp 199/74 notified
[2020-11-24] MEDS: hydrALAZINE HCl 50 MG TABLET 100 MG PO ×2 (02:52→10:25)
[2020-11-24] MEDS: carvediloL 6.25 MG TABLET PO ×2 (04:33→10:26)
--- NOTE | 2020-11-24 08:10 | PC.NURSE ---
Pt appears calm and cooperative. Resting quietly in bed at this time. VSS. Awaiting case management arrival for the day to discuss plan.
[2020-11-24] MEDS: Cholecalciferol (Vitamin D3) 25 MCG TABLET 50 MCG PO (10:26)
[2020-11-24] MEDS: Omeprazole 20 MG CAPSULE.DR PO (10:27)
[2020-11-24] MEDS: Doxazosin Mesylate 2 MG TABLET 12 MG PO (10:27)
[2020-11-24] MEDS: amLODIPine Besylate 10 MG TABLET PO (10:28)
--- NOTE | 2020-11-24 10:37 | MHC.CM.ED ---
Received consult for assessment of d/c needs: Pt with BLE weakness and falls at home. Review of EMR: pt with hypertension (SBP in the 170's, 180's) and orthostatic BP - discussed with provider: no plans for admission at this time. Met with pt who states she resides with her spouse who is limited with assistance he can provide: no services and no family close to assist with care needs. Pt states her spouse drives in the morning only and they use delivery services in addition. Pt has a walker and w/c: states SNELL is Dr. De Dios. Pt has been to a STR center in [place] roughly 2 years prior and would be receptive if PT deems her a candidate for a return. Will await PT eval: unsure if PT will complete at this time d/t pt's BP issues. Will start the STR referral process as well as [facility] should pt be able to safely return to home
[2020-11-24] MEDS: Levothyroxine Sodium 75 MCG TABLET PO (10:52)
--- NOTE | 2020-11-24 13:07 | PC.NURSE ---
Pt's BP improved since AM meds provided. She is eating lunch at this time .Awaiting PT eval for further recommendations on possible placement.
--- NOTE | 2020-11-24 13:30 | PC.NURSE ---
Pt OOB to commode with 1 assist and walker. Pt is weak but able to bear weight on both feet and take small steps. Physical therapy in room at this time for kimberli.
--- NOTE | 2020-11-24 14:43 | MHC.CM.ED ---
Pt not COVID vaccinated per her account - I think I got the flu shot two years ago Attempted to contact pt's spouse to inquire on vax status: no answer or VM. Discussed options with pt including home vs PT eval. Pt states she would like to return to home and is very receptive to services. Pt referred to [facility] for skilled RN and PT visits: PT feels this is an appropriate d/c plan. Pt will need transportation home: arranging with [facility] at this time. F2F sent to [facility].
--- NOTE | 2020-11-24 17:21 | PC.NURSE ---
page sent to sam bosch cm regarding pt refusing to go home and to recheck back in. per cm: due to lack of covid vacc placement will be difficult and PT has cleared her to go home. Plan is for [facility] to visit on thursday for Skill pt/rn/ and HOME HEALTH AID AT HOME
--- NOTE | 2020-11-24 17:28 | PC.NURSE ---
plan reiterated to pt with [employer]. pt in agreement now.
== END 2020-11-24 16:45 | disposition home or self-care (01) ==
PROVIDERS: Physician Assistant; Emergency Provider Student in an Organized Health Care Education/Training Program; PCP Internal Medicine
DX: R42 Dizziness and giddiness (principal); Z91.81 History of falling; R06.02 Shortness of breath; R60.0 Localized edema; I48.0 Paroxysmal atrial fibrillation; E11.22 Type 2 diabetes mellitus with diabetic chronic kidney disease; I12.9 Hypertensive chronic kidney disease with stage 1 through stage 4 chronic kidney disease, or unspecified chronic kidney disease; N18.4 Chronic kidney disease, stage 4 (severe); D63.1 Anemia in chronic kidney disease; E78.5 Hyperlipidemia, unspecified; Z79.4 Long term (current) use of insulin; Z79.02 Long term (current) use of antithrombotics/antiplatelets; Z79.899 Other long term (current) drug therapy; Z20.822 Contact with and (suspected) exposure to COVID-19
CPT/HCPCS: 36415; 70450; 71045; 72125; 80048; 80076; 81001; 82550; 83690; 83735; 83880; 84484; 85025; 87635; 93005; 96360; 97162; 99285

== ENCOUNTER 2021-01-08 01:37 | Emergency (ER) | payer MEDICARE, OTHER, SELFPAY ==
[2021-01-08] VITALS (7 sets, daily range): BP systolic 169–187; BP diastolic 46–62; PULSE 64–72; RESP 14–18; TEMP 36.8–37.2; O2SAT 98–100; BMI 27.4
--- NOTE | 2021-01-08 | ECG_ITS ---
Test Reason : SOB Blood Pressure : / mmHG Vent. Rate : 076 BPM Atrial Rate : 076 BPM P-R Int : 164 ms QRS Dur : 076 ms QT Int : 400 ms P-R-T Axes : 028 -07 132 degrees QTc Int : 450 ms Normal sinus rhythm Nonspecific T wave abnormality Abnormal ECG When compared with ECG of 23-NOV-2020 18:20, Sinus rhythm has replaced Junctional rhythm Nonspecific T wave abnormality no longer evident in Inferior leads Referred By: Generic ED Physician Electronically Signed By:BRANDAN VELEZ MD
--- NOTE | ~2021-01-08 | XR_ITS ---
EXAMINATION: XR CHEST CLINICAL INFORMATION: Shortness of breath COMPARISON: 11/23/2020 TECHNIQUE: Frontal view of the chest was obtained. FINDINGS: Normal symmetric lung volumes. No parenchymal consolidation. No pleural effusion. No pneumothorax. Cardiomediastinal silhouette and pulmonary vascularity are within normal limits. The aorta is atherosclerotic. No acute osseous abnormalities. XR/XR chest 1V IMPRESSION: No acute findings.
[2021-01-08 05:45] LABS: MANUAL DIFF FLAG NO
[2021-01-08 05:46] LABS: Basophils Percent Auto 0.2 % (0-2); Eosinophils Absolute Auto 0.1 X10*3/uL (0.0-0.4); Eosinophils Percent Auto 1.9 % (0-4); Hematocrit 21.9 % (37-47); Hemoglobin 7.2 g/dl (12.0-16.0); Imm Gran Abs Auto 0.02 X10*3/uL (0.00-0.03); Imm Gran Pct Auto 0.4 % (0.0-0.4); Lymphocytes Absolute Auto 2.1 X10*3/uL (1.2-4.9); Lymphocytes Percent Auto 40.2 % (20-40); Mean Corpuscular HGB Conc 32.9 g/dl (31.0-35.0); Mean Corpuscular Hemoglobin 29.8 pg (27.0-33.0); Mean Corpuscular Volume 90.5 fL (80-98); Mean Platelet Volume 9.8 fL (9.4-12.3); Monocytes Absolute Auto 0.5 X10*3/uL (0.1-1.2); Monocytes Percent Auto 10.1 % (2-11); Neutrophils Absolute Auto 2.4 X10*3/uL (2.0-8.3); Neutrophils Percent Auto 47.2 % (45-73); Platelet Count 205 X10*3/uL (160-400); Red Blood Count 2.42 X10*6/uL (4.20-5.50); Red Cell Distribution Width 14.6 % (11.0-16.0); White Blood Count 5.2 X10*3/uL (4.8-10.8)
[2021-01-08 06:04] LABS: COVID-19 Test Negative (Negative); IDNOW Serial# 9DD0AD1C
[2021-01-08 06:05] LABS: Alanine Aminotransferase 18 U/L (0-31); Albumin Level 1.9 g/dL (3.5-5.0); Alkaline Phosphatase 98 U/L (39-117); Anion Gap 8 (12-20); Aspartate Amino Transferase 29 U/L (5-31); Bilirubin Total 0.3 mg/dL (0.0-1.0); Blood Urea Nitrogen 14 mg/dL (9-16); Calcium 7.1 mg/dL (8.4-10.2); Carbon Dioxide 26 mmol/L (22-29); Chloride 112 mmol/L (96-108); Creatinine Clr Calc Pharmacy 29.3; Estimated Glomerular Filt Rate 31; Glucose Random 83 mg/dL (60-115); Potassium 3.4 mmol/L (3.3-5.1); Sodium 143 mmol/L (135-145); Total Protein 3.9 g/dL (6.5-8.0)
[2021-01-08 06:10] LABS: Troponin-I High Sensitivity 11.7 ng/L (<3.5-17.0)
--- NOTE | 2021-01-08 06:34 | ED.SOB ---
HPI - SOB/Dyspnea General Chief Complaint: Dyspnea Stated Complaint: SOB Time Seen by Provider: 01/08/21 06:33 Source: patient, EMS and old records reviewed Mode of arrival: EMS Limitations: no limitations History of Present Illness MD elicited complaint: shortness of breath Pertinent past history: other (anemia) Onset (ago): day(s) (3) Context: other (hx of similar episodes) Timing: improved Severity: mild Exacerbating factors: exertion Relieving factors: rest Known history of: other (RAISA and anemia) Associated symptoms: denies other symptoms Treatment prior to arrival: none Related Data Home Medications Medication Instructions Recorded Confirmed polyethylene glycol 3350 17 gram 17 g PO DAILY PRN 04/05/20 10/30/20 oral powder packet (Miralax) linagliptin 5 mg tablet 5 mg PO DAILY 09/26/20 10/30/20 Previous Rx's Medication Instructions Recorded cholecalciferol (vitamin D3) 50 50 mcg PO DAILY #30 cap 02/14/20 mcg (2,000 unit) capsule omeprazole 20 mg capsule,delayed 20 mg PO BID #60 cap 02/20/20 release cefuroxime axetil 250 mg tablet 250 mg PO Q12H #6 tab 04/24/20 pen needle, diabetic 32 gauge x #400 ea 07/23/20 (BD Swetha 2nd Gen Pen Needle) blood sugar diagnostic (FreeStyle #300 ea 08/17/20 Lite Strips) lancets 33 gauge (TRUEplus Lancets) #300 ea 08/17/20 amlodipine 10 mg tablet 10 mg PO DAILY #30 tab 09/12/20 doxazosin 4 mg tablet 12 mg PO DAILY #90 tab 09/12/20 ferrous gluconate 324 mg (37.5 mg 324 mg PO BID #60 tab 09/19/20 iron) tablet carvedilol 6.25 mg tablet 6.25 mg PO BID #60 tab 09/30/20 levothyroxine 75 mcg tablet 75 mcg PO DAILY 90 Days #90 tab 10/15/20 atorvastatin 80 mg tablet 80 mg PO BEDTIME #30 tab 10/23/20 isosorbide mononitrate 120 mg 120 mg PO DAILY #30 tab 10/23/20 tablet,extended release 24 hr hydralazine 100 mg tablet 100 mg PO Q8H 30 Days #90 tab 11/14/20 Allergies Allergy/AdvReac Type Severity Reaction Status Date / Time oxycodone Allergy Unknown rash Verified 09/24/20 21:32 Review of Systems Review of Systems: Constitutional : No Fever, No Chills ENT/Mouth : No sore throat, No Rhinorrhea, No Swallowing Difficulty Eyes: No Eye Pain, No Swelling, No Redness Cardiovascular : No Chest Pain, positive SOB, No Orthopnea, no Edema Respiratory : No Cough, No Sputum, No Wheezing, positive dyspnea Gastrointestinal : No Nausea, No Vomiting, No Diarrhea, No abdominal Pain, No Hematochezia, No Melena Genitourinary : No Dysuria, No Urinary Frequency, No Hematuria Musculoskeletal : No joint pain, No Myalgias Skin : No Skin Lesions, No rash Neuro : No Weakness, No Numbness, pos Dizziness, No Headache Psych : No Anxiety/Panic, No Depression Heme/Lymph: No Bruising, No Lymphadenopathy Endocrine : No Polyuria, No Polydipsia All other systems reviewed and are negative PMFSH Past Medical History Attestation statement: The following information was validated with the patient. Medical History Acute on chronic kidney failure Acute UTI Anemia in chronic kidney disease Bronchitis CAD (coronary artery disease) Carotid stenosis, bilateral CKD (chronic kidney disease) stage 4, GFR 15-29 ml/min COPD (chronic obstructive pulmonary disease) Diabetes mellitus with chronic kidney disease, with long-term current use of insulin Diabetic nephropathy associated with type 2 diabetes mellitus Dyslipidemia Gastritis GERD (gastroesophageal reflux disease) HTN (hypertension) Hypothyroid Left thalamic infarction Obesity RAISA (obstructive sleep apnea) Paroxysmal atrial fibrillation Pedal edema Post-surgical hypothyroidism Primary thyroid cancer Pulmonary nodule Respiratory crackles at both lung bases Sepsis Thyroid cancer Surgical History H/O angioplasty H/O heart artery stent History of thyroidectomy Hx of appendectomy S/P JOHN-BSO (~1997) Family History Family History Father CVD (cardiovascular disease) Mother CVD (cardiovascular disease) Brother CVD (cardiovascular disease) Parkinson disease Social History Social History Household Members: Spouse Housing: Other Housing Other:: mobile home Do you presently have visiting nurse or other home services: Yes Alcohol intake: unknown Patient Tobacco Use Status: Tobacco use Unknown Second Hand Smoke Exposure: No Advance Directives: No Advance Directives Date on File: 03/08/20 service: No Current occupational status: retired Physical Exam Vital Signs: Vital Signs: Last Vital Signs Temp 98.3 F 01/08/21 10:00 Pulse 70 01/08/21 10:00 Resp 18 01/08/21 10:00 BP 187/61 H 01/08/21 10:00 Pulse Ox 100 01/08/21 06:27 Body Mass Index 27.4 Appearance: Alert. Oriented X3. No acute distress. Eyes: Pupils equal, round and reactive to light. ENT: Pharynx normal. Neck: Normal inspection. Neck supple. CVS: Normal heart rate and rhythm. Pulses normal. Respiratory: No respiratory distress. Breath sounds normal. Abdomen: Soft and nontender. Rectal: brown stool Skin: Skin warm and dry. pale skin color. Normal skin turgor. Extremities: No lower extremity edema. No calf ttp Neuro: Oriented X 3. No motor deficit. No sensory deficit. Course Course Course Narrative: pateint feels much better after transfusion, no active GIB, guiac negative stable for DC MDM - SOB/Dyspnea MDM Narrative Medical decision making narrative: 80 yo female with hx of DM, dyspnea, anemia, PAF, RAISA here with c/o feeling dyspnea and dizziness for a few days but feels fine now - she denies CP suspect her chronic anemia is causing issues, will obtain basic labs, CXR, type and screen. Hx of similar presentations in the past Lab Data Result diagrams: 01/08/21 05:39 01/08/21 05:38 Labs: Lab Results 01/08/21 01/08/21 01/08/21 Range/Units 05:35 05:38 05:39 WBC 5.2 (4.8-10.8) X10*3/uL RBC 2.42 L D (4.20-5.50) X10*6/uL Hgb 7.2 L D (12.0-16.0) g/dl Hct 21.9 L D (37-47) % MCV 90.5 (80-98) fL MCH 29.8 (27.0-33.0) pg MCHC 32.9 (31.0-35.0) g/dl RDW 14.6 (11.0-16.0) % Plt Count 205 (160-400) X10*3/uL MPV 9.8 (9.4-12.3) fL Immature Gran % (Auto) 0.4 (0.0-0.4) % Neut % (Auto) 47.2 (45-73) % Lymph % (Auto) 40.2 H (20-40) % [place] % (Auto) 10.1 (2-11) % Eos % (Auto) 1.9 (0-4) % Baso % (Auto) 0.2 (0-2) % Lymph # (Auto) 2.1 (1.2-4.9) X10*3/uL [place] # (Auto) 0.5 (0.1-1.2) X10*3/uL Eos # (Auto) 0.1 (0.0-0.4) X10*3/uL Baso # (Auto) 0.0 (0.0-0.2) X10*3/uL Abs Immat Gran (auto) 0.02 (0.00-0.03) X10*3/uL Absolute Neuts (auto) 2.4 (2.0-8.3) X10*3/uL Absolute Nucleated RBC 0.000 (0.0-0.012) X10*3/uL Nucleated RBC % (auto) 0.0 (0.0-0.2) /100WBC Sodium 143 (135-145) mmol/L Potassium 3.4 (3.3-5.1) mmol/L Chloride 112 H (96-108) mmol/L Carbon Dioxide 26 (22-29) mmol/L Anion Gap 8 L (12-20) BUN 14 (9-16) mg/dL Creatinine 1.60 H (0.5-1.4) mg/dL Estim Creat Clear Calc 29.3 Estimated GFR 31 Random Glucose 83 (60-115) mg/dL Calcium 7.1 L D (8.4-10.2) mg/dL Total Bilirubin 0.3 (0.0-1.0) mg/dL AST 29 (5-31) U/L ALT 18 (0-31) U/L Alkaline Phosphatase 98 D (39-117) U/L Troponin I High Sens 11.7 (<3.5-17.0) ng/L B-Natriuretic Peptide (<100) pg/mL Total Protein 3.9 L D (6.5-8.0) g/dL Albumin 1.9 L D (3.5-5.0) g/dL Stool Occult Blood (NEGATIVE) COVID-19 (ADRIANA) (Negative) COVID-19 Clin Com Blood Type Antibody Screen Crossmatch 01/08/21 01/08/21 01/08/21 Range/Units 05:39 06:55 06:55 WBC (4.8-10.8) X10*3/uL RBC (4.20-5.50) X10*6/uL Hgb (12.0-16.0) g/dl Hct (37-47) % MCV (80-98) fL MCH (27.0-33.0) pg MCHC (31.0-35.0) g/dl RDW (11.0-16.0) % Plt Count (160-400) X10*3/uL MPV (9.4-12.3) fL Immature Gran % (Auto) (0.0-0.4) % Neut % (Auto) (45-73) % Lymph % (Auto) (20-40) % [place] % (Auto) (2-11) % Eos % (Auto) (0-4) % Baso % (Auto) (0-2) % Lymph # (Auto) (1.2-4.9) X10*3/uL [place] # (Auto) (0.1-1.2) X10*3/uL Eos # (Auto) (0.0-0.4) X10*3/uL Baso # (Auto) (0.0-0.2) X10*3/uL Abs Immat Gran (auto) (0.00-0.03) X10*3/uL Absolute Neuts (auto) (2.0-8.3) X10*3/uL Absolute Nucleated RBC (0.0-0.012) X10*3/uL Nucleated RBC % (auto) (0.0-0.2) /100WBC Sodium (135-145) mmol/L Potassium (3.3-5.1) mmol/L Chloride (96-108) mmol/L Carbon Dioxide (22-29) mmol/L Anion Gap (12-20) BUN (9-16) mg/dL Creatinine (0.5-1.4) mg/dL Estim Creat Clear Calc Estimated GFR Random Glucose (60-115) mg/dL Calcium (8.4-10.2) mg/dL Total Bilirubin (0.0-1.0) mg/dL AST (5-31) U/L ALT (0-31) U/L Alkaline Phosphatase (39-117) U/L Troponin I High Sens (<3.5-17.0) ng/L B-Natriuretic Peptide 218 H (<100) pg/mL Total Protein (6.5-8.0) g/dL Albumin (3.5-5.0) g/dL Stool Occult Blood NEGATIVE (NEGATIVE) COVID-19 (ADRIANA) Negative (Negative) COVID-19 Clin Com See Note Blood Type Antibody Screen Crossmatch 01/08/21 Range/Units 06:55 WBC (4.8-10.8) X10*3/uL RBC (4.20-5.50) X10*6/uL Hgb (12.0-16.0) g/dl Hct (37-47) % MCV (80-98) fL MCH (27.0-33.0) pg MCHC (31.0-35.0) g/dl RDW (11.0-16.0) % Plt Count (160-400) X10*3/uL MPV (9.4-12.3) fL Immature Gran % (Auto) (0.0-0.4) % Neut % (Auto) (45-73) % Lymph % (Auto) (20-40) % [place] % (Auto) (2-11) % Eos % (Auto) (0-4) % Baso % (Auto) (0-2) % Lymph # (Auto) (1.2-4.9) X10*3/uL [place] # (Auto) (0.1-1.2) X10*3/uL Eos # (Auto) (0.0-0.4) X10*3/uL Baso # (Auto) (0.0-0.2) X10*3/uL Abs Immat Gran (auto) (0.00-0.03) X10*3/uL Absolute Neuts (auto) (2.0-8.3) X10*3/uL Absolute Nucleated RBC (0.0-0.012) X10*3/uL Nucleated RBC % (auto) (0.0-0.2) /100WBC Sodium (135-145) mmol/L Potassium (3.3-5.1) mmol/L Chloride (96-108) mmol/L Carbon Dioxide (22-29) mmol/L Anion Gap (12-20) BUN (9-16) mg/dL Creatinine (0.5-1.4) mg/dL Estim Creat Clear Calc Estimated GFR Random Glucose (60-115) mg/dL Calcium (8.4-10.2) mg/dL Total Bilirubin (0.0-1.0) mg/dL AST (5-31) U/L ALT (0-31) U/L Alkaline Phosphatase (39-117) U/L Troponin I High Sens (<3.5-17.0) ng/L B-Natriuretic Peptide (<100) pg/mL Total Protein (6.5-8.0) g/dL Albumin (3.5-5.0) g/dL Stool Occult Blood (NEGATIVE) COVID-19 (ADRIANA) (Negative) COVID-19 Clin Com Blood Type O Positive Antibody Screen NEGATIVE Crossmatch See Detail ECG Data Attestation: I personally reviewed and interpreted this ECG as follows: ECG interpretation date: 01/08/21 ECG interpretation time: 06:35 Interpretation: Rate: 76 Rhythm: NSR [place]: left Normal P waves. Normal JOEL. Normal QRS complex. ST T wave : no ANABEL, nonspecific, inverted I and aVL qTC: normal prior studies: no acute ischemia The study has been interpreted contemporaneously by me. . Critical Care Time Critical Care Time Critical Care Time: Yes Total Critical Care Time: 35 Attestation: anemia transfusion of one unit PRBCs Discharge Plan Discharge Clinical Impression: Anemia Qualifiers: Anemia type: unspecified type Qualified Code(s): D64.9 - Anemia, unspecified Patient Disposition: Home, Self-Care Instructions: Anemia (ED) Additional Instructions: return to ED for any worsening symptoms or concerns you were transfused 1 unit of blood this should help your symptoms Prescriptions: No [facility] cholecalciferol (vitamin D3) 50 mcg (2,000 unit) capsule 50 mcg PO DAILY Qty: 30 RF: 11 omeprazole 20 mg capsule,delayed release(DR/EC) 20 mg PO BID Qty: 60 RF: 5 cefuroxime axetil 250 mg tablet 250 mg PO Q12H Qty: 6 RF: 0 (DME) pen needle, diabetic [BD Swetha 2nd Gen Pen Needle] 32 gauge x 5/32 needle See Rx Instructions .MEDSUPPLY Qty: 400 RF: 4 (DME) FreeStyle Lite Strips Strip See Rx Instructions .MEDSUPPLY Qty: 300 RF: 6 (DME) lancets [TRUEplus Lancets] 33 gauge misc See Rx Instructions .ROUTE .MEDSUPPLY Qty: 300 RF: 3 amlodipine 10 mg tablet 10 mg PO DAILY Qty: 30 RF: 5 doxazosin 4 mg tablet 12 mg PO DAILY Qty: 90 RF: 2 ferrous gluconate 324 mg (37.5 mg iron) tablet 324 mg PO BID Qty: 60 RF: 2 carvedilol 6.25 mg tablet 6.25 mg PO BID Qty: 60 RF: 5 levothyroxine 75 mcg tablet 75 mcg PO DAILY 90 Days Qty: 90 RF: 1 atorvastatin 80 mg tablet 80 mg PO BEDTIME Qty: 30 RF: 6 isosorbide mononitrate 120 mg tablet extended release 24 hr 120 mg PO DAILY Qty: 30 RF: 3 hydralazine 100 mg tablet 100 mg PO Q8H 30 Days Qty: 90 RF: 2 polyethylene glycol 3350 [Miralax] 17 gram Powder In Packet 17 g PO DAILY PRN (Reason: Constipation) RF: 0 linagliptin 5 mg tablet 5 mg PO DAILY RF: 0 Referrals: Physician,Unknown J [Primary Care Provider] - 2 days (your PCP if not better)
--- NOTE | 2021-01-08 07:15 | PC.NURSE ---
assumed care of pt, resting comfortably in bed, awaiting transfusion
[2021-01-08 07:16] LABS: OBS Int Ctl Valid YES; OBS1 NEGATIVE (NEGATIVE)
--- NOTE | 2021-01-08 07:37 | PC.NURSE ---
ambulance linen and extra sheets removed from pt. pt changed into hospital attire. 20g r ac placed, 22g l hand placed. vss. awaiting blood transfusion. pt aware of plan of care and denied having any questions.
[2021-01-08 07:45] LABS: B Type Natriuretic Peptide 218 pg/mL (<100)
--- NOTE | 2021-01-08 08:21 | PC.NURSE ---
tolerating transfusion well. no reaction.
--- NOTE | 2021-01-08 10:15 | PC.NURSE ---
pt unsteady on her feet. needs assistance to bathroom. pt refused wanting to see PT and wants to go home.
--- NOTE | 2021-01-08 12:29 | PC.NURSE ---
multiple attempts to recall family- no answer
== END 2021-01-08 13:37 | disposition home or self-care (01) ==
PROVIDERS: Emergency Provider Emergency Medicine
DX: D64.9 Anemia, unspecified (principal); R06.02 Shortness of breath; I25.10 Atherosclerotic heart disease of native coronary artery without angina pectoris; J44.9 Chronic obstructive pulmonary disease, unspecified; G47.33 Obstructive sleep apnea (adult) (pediatric); Z79.899 Other long term (current) drug therapy; Z20.822 Contact with and (suspected) exposure to COVID-19
CPT/HCPCS: 36415; 36430; 71045; 80053; 82272; 83880; 84484; 85025; 86850; 86900; 86901; 86923; 87635; 93005; 99284; 99291; P9016

== ENCOUNTER 2021-03-19 13:22 | Inpatient (IN) | payer MEDICARE, OTHER, SELFPAY ==
[2021-03-19] VITALS (9 sets, daily range): BP systolic 145–218; BP diastolic 53–86; PULSE 72–98; RESP 13–39; TEMP 36.6–37.1; O2SAT 98–99; BMI 30.9
--- NOTE | ~2021-03-19 | CT_ITS ---
EXAMINATION: CT ABDOMEN AND PELVIS WITHOUT CONTRAST CLINICAL INFORMATION: Vomiting. Abdominal pain. COMPARISON: Previous CT of the abdomen and pelvis December 2019 TECHNIQUE: Multidetector volumetric imaging was performed from the superior aspect of the liver through the pubic symphysis. Sagittal and coronal reformatted images were obtained on the technologist's workstation. This CT examination was performed using dose optimization techniques as appropriate, variously including the following: *Automated exposure control *Adjustment of mA and/or kV according to patient size (this includes techniques or standardized protocols for targeted exams where dose is matched to indication/reason for exam; i.e. extremities or head) *Use of iterative reconstruction technique DLP: 710 mGy-cm FINDINGS: LIVER, GALLBLADDER, AND BILIARY TREE: The liver is small questionable for cirrhosis. There is a tiny calcification in the peripheral right lobe of the liver. No other focal lesion is seen. The gallbladder is upper normal in size, and there are gallstones. There is no biliary duct dilatation. PANCREAS: Unremarkable. SPLEEN: Unremarkable. ADRENAL GLANDS: Unremarkable. KIDNEYS AND URETERS: The kidneys are normal in size, shape, and attenuation. No hydronephrosis, hydroureter, or calculi seen. No perinephric stranding. BLADDER: Unremarkable. GASTROINTESTINAL TRACT: There is diverticulosis of the colon. No evidence of diverticulitis is seen. There is edema of the small bowel mesentery. There are fluid-filled loops of small bowel. Small bowel in the low mid abdomen appears clumped together and is difficult to evaluate. It is difficult to exclude fall small focus of extraluminal air in the adjacent to small bowel loops in the midabdomen for example on the right axial image 59 series 6 and more inferior midline axial image 58 series 6. The small and large bowel is otherwise unremarkable. The appendix is not seen. There is question of gastric wall thickening. There is a moderate amount of ascites. No free air is seen. ABDOMINAL WALL: No significant hernia is appreciated. There is diffuse subcutaneous edema or anasarca. LYMPH NODES: Normal. VASCULAR: There is evidence of atherosclerotic disease. No aneurysm is seen. PELVIC VISCERA: The uterus appears to have been removed. No pelvic mass is seen. OSSEOUS STRUCTURES: There is a recent appearing L1 vertebral body compression fracture. There are degenerative changes of the spine and hip joints. CT/CT abdomen pelvis wo con IMPRESSION: Cirrhotic-appearing. Moderate amount of ascites. Gallstones. Severe diverticulosis of the colon. Severe atherosclerotic disease. Fluid-filled loops of small bowel and small bowel mesentery edema. It is difficult to exclude a small amount of extraluminal air adjacent to loops of small bowel in the lower midline abdomen as described above. Correlation with lactate level and imaging follow-up should be considered if clinically indicated. Recent appearing L1 vertebral body compression fracture. Diffuse edema or anasarca. Findings will be communicated by the [place] work flow middle school teacher Candi Baumann. Fleischner guidelines were followed.
--- NOTE | ~2021-03-19 | CT_ITS ---
EXAMINATION: CT CHEST WITHOUT CONTRAST CLINICAL INFORMATION: Cough and vomiting. COMPARISON: Previous chest x-ray from earlier the same day and chest CT January 2019 TECHNIQUE: Multidetector volumetric CT imaging of the chest was done. Axial MIP volume rendering provided. Sagittal and coronal reformatted images were obtained. This CT examination was performed using dose optimization techniques as appropriate, variously including the following: *Automated exposure control *Adjustment of mA and/or kV according to patient size (this includes techniques or standardized protocols for targeted exams where dose is matched to indication/reason for exam; i.e. extremities or head) *Use of iterative reconstruction technique DLP: 304 mGy-cm FINDINGS: LUNGS: There is a 1 cm left upper lobe nodule axial image 165 series 8. This is similar to previous exam. There is minimal compressive atelectasis at the left lower lobe adjacent to the left pleural effusion. The lungs are otherwise clear. MEDIASTINUM: The right lobe of the thyroid gland has been removed. The heart does not appear enlarged. There is coronary artery and aortic valve calcification. The thoracic aorta is normal in caliber. There is a tiny pericardial effusion. There are calcified left hilar and mediastinal lymph nodes. There are no enlarged hilar or mediastinal lymph nodes. The esophagus is unremarkable. PLEURA: There is a small right pleural effusion. There is a moderate left pleural effusion. AXILLA: No lymphadenopathy. There is diffuse subcutaneous edema or anasarca. UPPER ABDOMEN: See the abdominal and pelvic CT the same day. OSSEOUS STRUCTURES: There are degenerative changes of the spine. CT/CT chest wo con IMPRESSION: Moderate left and small right pleural effusions. Mild compressive atelectasis of the left lower lobe adjacent to the pleural effusion. 1 cm left upper lobe pulmonary nodule stable from previous exam. Coronary artery and aortic valve calcification. Fleischner guidelines were followed.
--- NOTE | ~2021-03-19 | XR_ITS ---
EXAMINATION: XR CHEST CLINICAL INFORMATION: Weakness COMPARISON: Chest x-ray 01/08/2021. TECHNIQUE: Frontal view of the chest was obtained. FINDINGS: The lungs are hypoexpanded and mild haziness in the left lung base likely effusion. Rest of lungs are clear. Heart size and pulmonary vascularity is normal. XR/XR chest 1V IMPRESSION: Mild haziness in left lung base likely effusion with underlying atelectasis.
--- NOTE | 2021-03-19 13:30 | ECG_ITS ---
Test Reason : WEAKNESS Blood Pressure : / mmHG Vent. Rate : 083 BPM Atrial Rate : 000 BPM P-R Int : 000 ms QRS Dur : 070 ms QT Int : 352 ms P-R-T Axes : 000 -11 185 degrees QTc Int : 413 ms Likely sinus but P very subtle Nonspecific T wave abnormality Abnormal ECG When compared with ECG of 08-JAN-2021 05:31, No significant changes seen Referred By: Amairani Strong Electronically Signed By:MOMO APARICIO
--- NOTE | 2021-03-19 13:30 | ED_ITS ---
HPI - Nausea/Vomiting/Diarrhea General Chief complaint: General Medical Stated complaint: N/V Time Seen by Provider: 03/19/21 13:28 Source: patient and old records reviewed Mode of arrival: EMS Limitations: no limitations History of Present Illness MD elicited complaint: nausea, vomiting and abdominal pain Onset (ago): week(s) (4) Associated nausea: Yes Associated abdominal pain: Yes Location of pain: diffuse Pain consistency: constant Severity: moderate Quality: aching Exacerbating factors: eating and movement Relieving factors: none Context: other (poor historian but EMS notes found covered in vomit reported 1 month of shortness of breath, chills, n/v flu like illness) Associated symptoms: myalgias, fever/chills, loss of appetite, malaise, nausea/vomiting and weakness Related Data Home Medications Medication Instructions Recorded Confirmed albuterol sulfate 90 mcg/actuation 2 puff INHALATION Q4H 03/19/21 03/19/21 aerosol inhaler (Ventolin HFA) hydralazine 100 mg tablet 100 mg PO TID 03/19/21 03/19/21 Previous Rx's Medication Instructions Recorded cholecalciferol (vitamin D3) 50 50 mcg PO DAILY #30 cap 02/13/ mcg (2,000 unit) capsule omeprazole 20 mg capsule,delayed 20 mg PO BID #60 cap 02/20/20 release pen needle, diabetic 32 gauge x #400 ea 07/23/20 (BD Swetha 2nd Gen Pen Needle) blood sugar diagnostic (FreeStyle #300 ea 08/17/20 Lite Strips) lancets 33 gauge (TRUEplus Lancets) #300 ea 08/17/20 doxazosin 4 mg tablet 12 mg PO DAILY #90 tab 09/12/20 ferrous gluconate 324 mg (37.5 mg 324 mg PO BID #60 tab 09/19/20 iron) tablet carvedilol 6.25 mg tablet 6.25 mg PO BID #60 tab 09/30/20 levothyroxine 75 mcg tablet 75 mcg PO DAILY 90 Days #90 tab 10/15/20 atorvastatin 80 mg tablet 80 mg PO BEDTIME #30 tab 10/23/20 isosorbide mononitrate 120 mg 120 mg PO DAILY #30 tab 10/23/20 tablet,extended release 24 hr amlodipine 10 mg tablet 10 mg PO DAILY #30 tab 02/07/21 Allergies Allergy/AdvReac Type Severity Reaction Status Date / Time oxycodone Allergy Unknown rash Verified 09/24/20 21:32 Review of Systems Review of Systems: Constitutional : No Weight loss, No Fever, pos Chills ENT/Mouth : No sore throat, No Rhinorrhea Eyes: No Swelling, No Redness Cardiovascular : No Chest Pain, No SOB, pos Edema Respiratory : pos Cough, No Sputum, No Wheezing Gastrointestinal : Positive Nausea, Positive Vomiting, no Diarrhea, positive abdominal Pain, No Hematochezia, No Melena Genitourinary : No Dysuria, No Urinary Frequency, No Hematuria, No Urgency Musculoskeletal : No joint pain, No Myalgias, No Joint Swelling Skin : No Skin Lesions, No rash Neuro : pos Weakness, No Numbness, No Dizziness, No Headache Psych : No Anxiety/Panic, No Depression Heme/Lymph: No Bruising, No Lymphadenopathy Endocrine : No Polyuria, No Polydipsia All other systems reviewed and are negative. Gastrointestinal: Gastrointestinal: Reports nausea PMFSH Past Medical History Attestation statement: The following information was validated with the patient. Source: old records reviewed Medical History Acute on chronic kidney failure Acute UTI Anemia in chronic kidney disease Bronchitis CAD (coronary artery disease) Carotid stenosis, bilateral CKD (chronic kidney disease) stage 4, GFR 15-29 ml/min COPD (chronic obstructive pulmonary disease) Diabetes mellitus with chronic kidney disease, with long-term current use of insulin Diabetic nephropathy associated with type 2 diabetes mellitus Dyslipidemia Gastritis GERD (gastroesophageal reflux disease) HTN (hypertension) Hypothyroid Left thalamic infarction Obesity RAISA (obstructive sleep apnea) Paroxysmal atrial fibrillation Pedal edema Post-surgical hypothyroidism Primary thyroid cancer Pulmonary nodule Respiratory crackles at both lung bases Sepsis Thyroid cancer Surgical History H/O angioplasty H/O heart artery stent History of thyroidectomy Hx of appendectomy S/P JOHN-BSO (~1997) Family History Family History Father CVD (cardiovascular disease) Mother CVD (cardiovascular disease) Brother CVD (cardiovascular disease) Parkinson disease Social History Social History Household Members: Spouse Housing: Other Housing Other:: mobile home Do you presently have visiting nurse or other home services: Yes Alcohol intake: unknown Patient Tobacco Use Status: Tobacco use Unknown Second Hand Smoke Exposure: No Advance Directives: Yes Advance Directives on File: Yes Advance Directives Date on File: 03/08/20 service: No Current occupational status: retired Physical Exam Vital Signs: Vital Signs: Last Vital Signs Temp 98.4 F 03/19/21 16:29 Pulse 88 03/19/21 16:29 Resp 24 H 03/19/21 16:29 BP 206/76 H 03/19/21 16:29 Pulse Ox 99 03/19/21 16:29 BMI result Body Mass Index 30.9 Appearance: Alert. Oriented X3. Anxious mild acute distress. Eyes: Pupils equal, round and reactive to light. ENT: Pharynx normal. Neck: Normal inspection. Neck supple. CVS: Normal heart rate and rhythm. Pulses normal. Respiratory: No respiratory distress. Breath sounds decreased L > R Abdomen: Soft and diffuse mild ttp no rebound Buttocks: R buttock small bruise noted Skin: Skin warm and dry. pale skin color. Normal skin turgor. Extremities: 1 to 2+ pitting lower extremity edema - anasarca noted. No calf ttp Neuro: Oriented X 3. No motor deficit. No sensory deficit. Course Course Course Narrative: IV lasix ordered as well as albumin to help diurese TSH elevated but the patient has no bradycardia - CT scans pending no hypoxia signed out pending workup to Dr. Olivera MDM - Nausea/Vomiting/Diarrhea MDM Narrative Medical decision making narrative: 80 yo female from home comes in with 1 month of not feeling well abdominal pain vomiting chills dyspnea weakness hx of DM, PAF, GIB CKD EMS notes she was found covered in vomit and she has what appears to be dried stool on her legs - at this time labs, cultures, UA, CT scan of abdomen for obstruction, CT chest for pneumonia - dispo per results and findings. Lab Data Result diagrams: 03/19/21 14:25 03/19/21 14:26 Labs: Lab Results 03/19/21 03/19/21 03/19/21 Range/Units 13:32 14:25 14:25 WBC 4.5 L (4.8-10.8) X10*3/uL RBC 3.35 L (4.20-5.50) X10*6/uL Hgb 10.0 L (12.0-16.0) g/dl Hct 30.0 L (37.0-47.0) % MCV 89.6 (80.0-98.0) fL MCH 29.9 (27.0-33.0) pg MCHC 33.3 (31.0-35.0) g/dl RDW 14.6 (11.0-16.0) % Plt Count 287 (160-400) X10*3/uL MPV 9.7 (9.4-12.3) fL Immature Gran % (Auto) 0.2 (0.0-0.4) % Neut % (Auto) 73.4 H (45-73) % Lymph % (Auto) 21.3 (20-40) % [place] % (Auto) 4.7 (2-11) % Eos % (Auto) 0.2 (0-4) % Baso % (Auto) 0.2 (0-2) % Lymph # (Auto) 1.0 L (1.2-4.9) X10*3/uL [place] # (Auto) 0.2 (0.1-1.2) X10*3/uL Eos # (Auto) 0.0 (0.0-0.4) X10*3/uL Baso # (Auto) 0.0 (0.0-0.2) X10*3/uL Abs Immat Gran (auto) 0.01 (0.00-0.03) X10*3/uL Absolute Neuts (auto) 3.3 (2.0-8.3) x10*3/uL Absolute Nucleated RBC 0.000 (0.0-0.012) X10*3/uL Nucleated RBC % (auto) 0.0 (0.0-0.2) /100WBC VBG pH (7.32-7.43) VBG pCO2 mmHg VBG pO2 mmHg VBG HCO3 (22-26) mmol/L VBG O2 Saturation % VBG Base Excess mmol/L Sodium (135-145) mmol/L Potassium (3.3-5.1) mmol/L Chloride (96-108) mmol/L Carbon Dioxide (22-29) mmol/L Anion Gap (12-20) BUN (9-16) mg/dL Creatinine (0.5-1.4) mg/dL Estim Creat Clear Calc Estimated GFR POC Glucose 88 (60-115) mg/dL Random Glucose (60-115) mg/dL Lactic Acid (0.5-2.0) mmol/L Calcium (8.4-10.2) mg/dL Magnesium (1.6-2.6) mg/dL Total Bilirubin (0.0-1.0) mg/dL Direct Bilirubin (0.0-0.5) mg/dL AST (5-31) U/L ALT (0-31) U/L Alkaline Phosphatase (39-117) U/L Troponin I High Sens (<3.5-17.0) ng/L B-Natriuretic Peptide (<100) pg/mL Total Protein (6.5-8.0) g/dL Albumin (3.5-5.0) g/dL Lipase (8-78) U/L TSH (0.32-4.0) uIU/mL Free T4 (0.71-1.85) ng/dL COVID-19 ([facility]) (Negative) COVID-19 Clin Com Blood Type O Positive Antibody Screen NEGATIVE 03/19/21 03/19/21 03/19/21 Range/Units 14:26 14:26 14:26 WBC (4.8-10.8) X10*3/uL RBC (4.20-5.50) X10*6/uL Hgb (12.0-16.0) g/dl Hct (37.0-47.0) % MCV (80.0-98.0) fL MCH (27.0-33.0) pg MCHC (31.0-35.0) g/dl RDW (11.0-16.0) % Plt Count (160-400) X10*3/uL MPV (9.4-12.3) fL Immature Gran % (Auto) (0.0-0.4) % Neut % (Auto) (45-73) % Lymph % (Auto) (20-40) % [place] % (Auto) (2-11) % Eos % (Auto) (0-4) % Baso % (Auto) (0-2) % Lymph # (Auto) (1.2-4.9) X10*3/uL [place] # (Auto) (0.1-1.2) X10*3/uL Eos # (Auto) (0.0-0.4) X10*3/uL Baso # (Auto) (0.0-0.2) X10*3/uL Abs Immat Gran (auto) (0.00-0.03) X10*3/uL Absolute Neuts (auto) (2.0-8.3) x10*3/uL Absolute Nucleated RBC (0.0-0.012) X10*3/uL Nucleated RBC % (auto) (0.0-0.2) /100WBC VBG pH (7.32-7.43) VBG pCO2 mmHg VBG pO2 mmHg VBG HCO3 (22-26) mmol/L VBG O2 Saturation % VBG Base Excess mmol/L Sodium 142 (135-145) mmol/L Potassium 4.0 (3.3-5.1) mmol/L Chloride 112 H (96-108) mmol/L Carbon Dioxide 24 (22-29) mmol/L Anion Gap 10 L (12-20) BUN 17 H (9-16) mg/dL Creatinine 2.05 H (0.5-1.4) mg/dL Estim Creat Clear Calc 20.1 Estimated GFR 23 POC Glucose (60-115) mg/dL Random Glucose 94 (60-115) mg/dL Lactic Acid 1.0 (0.5-2.0) mmol/L Calcium 7.7 L D (8.4-10.2) mg/dL Magnesium 1.6 (1.6-2.6) mg/dL Total Bilirubin 0.4 (0.0-1.0) mg/dL Direct Bilirubin 0.2 (0.0-0.5) mg/dL AST 28 (5-31) U/L ALT 22 (0-31) U/L Alkaline Phosphatase 119 H D (39-117) U/L Troponin I High Sens (<3.5-17.0) ng/L B-Natriuretic Peptide (<100) pg/mL Total Protein 3.9 L (6.5-8.0) g/dL Albumin 1.4 L D (3.5-5.0) g/dL Lipase 44 (8-78) U/L TSH (0.32-4.0) uIU/mL Free T4 (0.71-1.85) ng/dL COVID-19 ([facility]) Negative (Negative) COVID-19 Clin Com See Note Blood Type Antibody Screen 03/19/21 03/19/21 03/19/21 Range/Units 14:26 14:26 14:31 WBC (4.8-10.8) X10*3/uL RBC (4.20-5.50) X10*6/uL Hgb (12.0-16.0) g/dl Hct (37.0-47.0) % MCV (80.0-98.0) fL MCH (27.0-33.0) pg MCHC (31.0-35.0) g/dl RDW (11.0-16.0) % Plt Count (160-400) X10*3/uL MPV (9.4-12.3) fL Immature Gran % (Auto) (0.0-0.4) % Neut % (Auto) (45-73) % Lymph % (Auto) (20-40) % [place] % (Auto) (2-11) % Eos % (Auto) (0-4) % Baso % (Auto) (0-2) % Lymph # (Auto) (1.2-4.9) X10*3/uL [place] # (Auto) (0.1-1.2) X10*3/uL Eos # (Auto) (0.0-0.4) X10*3/uL Baso # (Auto) (0.0-0.2) X10*3/uL Abs Immat Gran (auto) (0.00-0.03) X10*3/uL Absolute Neuts (auto) (2.0-8.3) x10*3/uL Absolute Nucleated RBC (0.0-0.012) X10*3/uL Nucleated RBC % (auto) (0.0-0.2) /100WBC VBG pH 7.45 H (7.32-7.43) VBG pCO2 34 mmHg VBG pO2 48 mmHg VBG HCO3 24 (22-26) mmol/L VBG O2 Saturation 76.0 % VBG Base Excess 0.7 mmol/L Sodium (135-145) mmol/L Potassium (3.3-5.1) mmol/L Chloride (96-108) mmol/L Carbon Dioxide (22-29) mmol/L Anion Gap (12-20) BUN (9-16) mg/dL Creatinine (0.5-1.4) mg/dL Estim Creat Clear Calc Estimated GFR POC Glucose (60-115) mg/dL Random Glucose (60-115) mg/dL Lactic Acid (0.5-2.0) mmol/L Calcium (8.4-10.2) mg/dL Magnesium (1.6-2.6) mg/dL Total Bilirubin (0.0-1.0) mg/dL Direct Bilirubin (0.0-0.5) mg/dL AST (5-31) U/L ALT (0-31) U/L Alkaline Phosphatase (39-117) U/L Troponin I High Sens 43.4 H (<3.5-17.0) ng/L B-Natriuretic Peptide 646 H (<100) pg/mL Total Protein (6.5-8.0) g/dL Albumin (3.5-5.0) g/dL Lipase (8-78) U/L TSH 34.96 H (0.32-4.0) uIU/mL Free T4 0.52 L (0.71-1.85) ng/dL COVID-19 ([facility]) (Negative) COVID-19 Clin Com Blood Type Antibody Screen ECG Data Attestation: I personally reviewed and interpreted this ECG as follows: ECG interpretation date: 03/19/21 ECG interpretation time: 14:04 Interpretation: Rate: 83 Rhythm: regular [place]: left Normal QRS complex. ST T wave : no ANABEL, inverted I and aVL, V4-V6 , no ANABEL diffusely fla qTC: normal prior studies: t waves noted on priors but today p waves noticeably smaller though rhythm is regular The study has been interpreted contemporaneously by me. . Discharge Plan Discharge Clinical Impression: CHF (congestive heart failure) Qualifiers: Heart failure type: unspecified Heart failure chronicity: acute on chronic Qualified Code(s): I50.9 - Heart failure, unspecified Vomiting Qualifiers: Vomiting type: unspecified Nausea presence: with nausea Qualified Code(s): R11.2 - Nausea with vomiting, unspecified Prescriptions: No Action cholecalciferol (vitamin D3) 50 mcg (2,000 unit) capsule 50 mcg PO DAILY Qty: 30 RF: 11 omeprazole 20 mg capsule,delayed release(DR/EC) 20 mg PO BID Qty: 60 RF: 5 (DME) pen needle, diabetic [BD Swetha 2nd Gen Pen Needle] 32 gauge x 5/32 needle See Rx Instructions .MEDSUPPLY Qty: 400 RF: 4 (DME) FreeStyle Lite Strips Strip See Rx Instructions .MEDSUPPLY Qty: 300 RF: 6 (DME) lancets [TRUEplus Lancets] 33 gauge misc See Rx Instructions .ROUTE .MEDSUPPLY Qty: 300 RF: 3 doxazosin 4 mg tablet 12 mg PO DAILY Qty: 90 RF: 2 ferrous gluconate 324 mg (37.5 mg iron) tablet 324 mg PO BID Qty: 60 RF: 2 carvedilol 6.25 mg tablet 6.25 mg PO BID Qty: 60 RF: 5 levothyroxine 75 mcg tablet 75 mcg PO DAILY 90 Days Qty: 90 RF: 1 atorvastatin 80 mg tablet 80 mg PO BEDTIME Qty: 30 RF: 6 isosorbide mononitrate 120 mg tablet extended release 24 hr 120 mg PO DAILY Qty: 30 RF: 3 amlodipine 10 mg tablet 10 mg PO DAILY Qty: 30 RF: 5 albuterol sulfate [Ventolin HFA] 90 mcg/actuation HFA aerosol inhaler 2 puff inhalation Q4H RF: 0 hydralazine 100 mg tablet 100 mg PO TID RF: 0
[2021-03-19 13:36] LABS: Glucose, Whole Blood 88 mg/dL (60-115)
[2021-03-19 14:34] LABS: MANUAL DIFF FLAG NO
[2021-03-19 14:40] LABS: Basophils Percent Auto 0.2 % (0-2); Eosinophils Percent Auto 0.2 % (0-4); Imm Gran Abs Auto 0.01 X10*3/uL (0.00-0.03); Imm Gran Pct Auto 0.2 % (0.0-0.4); Lymphocytes Percent Auto 21.3 % (20-40); Mean Corpuscular HGB Conc 33.3 g/dl (31.0-35.0); Mean Corpuscular Hemoglobin 29.9 pg (27.0-33.0); Mean Corpuscular Volume 89.6 fL (80.0-98.0); Mean Platelet Volume 9.7 fL (9.4-12.3); Monocytes Absolute Auto 0.2 X10*3/uL (0.1-1.2); Monocytes Percent Auto 4.7 % (2-11); Neutrophils Absolute Auto 3.3 x10*3/uL (2.0-8.3); Neutrophils Percent Auto 73.4 % (45-73); Platelet Count 287 X10*3/uL (160-400); Red Blood Count 3.35 X10*6/uL (4.20-5.50); Red Cell Distribution Width 14.6 % (11.0-16.0); White Blood Count 4.5 X10*3/uL (4.8-10.8)
[2021-03-19 14:59] LABS: COVID-19 Test Negative (Negative); IDNOW Serial# 9DD0AD1C
--- NOTE | 2021-03-19 15:01 | PHA.MEDREC ---
Pharmacy Consult ? Medication Reconciliation Pharmacy has completed the medication reconciliation. Pt doesn't know which medication's she is currently taking. Spoke to who is also unsure. Called [facility] and spoke to Karma, who noted most recent scrap picker was 01/09/21 and that pt is nonadherent. Alla Little, [facility]
[2021-03-19 15:06] LABS: Alanine Aminotransferase 22 U/L (0-31); Albumin Level 1.4 g/dL (3.5-5.0); Alkaline Phosphatase 119 U/L (39-117); Anion Gap 10 (12-20); Aspartate Amino Transferase 28 U/L (5-31); Bilirubin Direct 0.2 mg/dL (0.0-0.5); Bilirubin Total 0.4 mg/dL (0.0-1.0); Blood Urea Nitrogen 17 mg/dL (9-16); Calcium 7.7 mg/dL (8.4-10.2); Carbon Dioxide 24 mmol/L (22-29); Chloride 112 mmol/L (96-108); Creatinine Clr Calc Pharmacy 20.1; Estimated Glomerular Filt Rate 23; Glucose Random 94 mg/dL (60-115); Lipase 44 U/L (8-78); Magnesium 1.6 mg/dL (1.6-2.6); Sodium 142 mmol/L (135-145); Total Protein 3.9 g/dL (6.5-8.0)
[2021-03-19 15:07] LABS: VBG Base Excess 0.7 mmol/L; VBG HCO3 24 mmol/L (22-26); VBG pCO2 34 mmHg; VBG pH 7.45 (7.32-7.43); VBG pO2 48 mmHg
[2021-03-19 15:07] LABS: Venous Blood Gas Refer to POC result
[2021-03-19 15:10] LABS: B Type Natriuretic Peptide 646 pg/mL (<100); Troponin-I High Sensitivity 43.4 ng/L (<3.5-17.0)
[2021-03-19 15:25] LABS: TSH reflex Free T4 34.96 uIU/mL (0.32-4.0)
[2021-03-19 16:06] LABS: Free T4 (Free Thyroxine) 0.52 ng/dL (0.71-1.85)
[2021-03-19] MEDS: ondansetron HCL 4 MG/2 ML VIAL IVPUSH (16:20)
[2021-03-19] MEDS: Albumin Human 25 % 100 ML IV ×3 (16:20→21:17)
[2021-03-19] MEDS: Furosemide 40 MG/4 ML VIAL IVPUSH (16:20)
[2021-03-19] MEDS: Labetalol HCL 100 MG TABLET PO (17:31)
--- NOTE | 2021-03-19 19:17 | PM.IMHP ---
History of Present Illness Date of Service: 03/19/21 Chief Complaint: SOB 80-year-old female with a past medical history of hypertension, hyperlipidemia, diabetes, CAD, CHF, CKD, guided stenosis, hypothyroidism, pulmonary nodule, RAISA, paroxysmal AFib -not on anticoagulation, history of thyroid cancer status post thyroidectomy, anemia, COPD, GERD presented to the hospital today with a chief complaint of shortness of breath. Patient denies any fever chills cough. Denies any chest pain palpitations lightheadedness or dizziness. Reports swelling in the bilateral lower extremities/weight gain; complains of dyspnea on exertion. Denies any symptoms. Review of all other systems is negative except mentioned above ER course: Per ER team patient was found by the EMS called in vomitus, dried stool on the legs; noted to elevated proBNP, peripheral edema, concern for CHF; given Lasix; patient blood pressure was also noted to be elevated; given labetalol. EKG was nonischemic admitted for further management [facility] Medical History Acute on chronic kidney failure Acute UTI Anemia in chronic kidney disease Bronchitis CAD (coronary artery disease) Carotid stenosis, bilateral CKD (chronic kidney disease) stage 4, GFR 15-29 ml/min COPD (chronic obstructive pulmonary disease) Diabetes mellitus with chronic kidney disease, with long-term current use of insulin Diabetic nephropathy associated with type 2 diabetes mellitus Dyslipidemia Gastritis GERD (gastroesophageal reflux disease) HTN (hypertension) Hypothyroid Left thalamic infarction Obesity RAISA (obstructive sleep apnea) Paroxysmal atrial fibrillation Pedal edema Post-surgical hypothyroidism Primary thyroid cancer Pulmonary nodule Respiratory crackles at both lung bases Sepsis Thyroid cancer Family History Father CVD (cardiovascular disease) Mother CVD (cardiovascular disease) Brother CVD (cardiovascular disease) Parkinson disease Pertinent family history: as above Surgical History H/O angioplasty H/O heart artery stent History of thyroidectomy Hx of appendectomy S/P JOHN-BSO (~1997) Social History Household Members: Spouse Housing: Other Housing Other:: mobile home Do you presently have visiting nurse or other home services: Yes Alcohol intake: unknown Patient Tobacco Use Status: Tobacco use Unknown Second Hand Smoke Exposure: No Advance Directives: Yes Advance Directives on File: Yes Advance Directives Date on File: 03/08/20 service: No Current occupational status: retired Meds Allergies Allergy/AdvReac Type Severity Reaction Status Date / Time oxycodone Allergy Unknown rash Verified 09/24/20 21:32 Active Medications: Current Medications Albuterol Sulfate (Albuterol Sulfate 90 Mcg 8 Gm Inhaler) 2 puff INHALE RQ4H PENDING SALE TO [facility] Amlodipine Besylate (Amlodipine Besylate 10 Mg Tablet) 10 mg PO DAILY PENDING SALE TO [facility]; Protocol Atorvastatin Calcium (Atorvastatin Calcium 80 Mg Tablet) 80 mg PO BEDTIME MORIAH Carvedilol (Carvedilol 6.25 Mg Tablet) 6.25 mg PO BID PENDING SALE TO [facility]; Protocol Doxazosin Mesylate (Doxazosin Mesylate 2 Mg Tablet) 12 mg PO DAILY PENDING SALE TO [facility]; Protocol Hydralazine HCl (Hydralazine Hcl 50 Mg Tablet) 100 mg PO TID PENDING SALE TO [facility]; Protocol Albumin Human (Kedbumin 25 %) 100 mls @ 100 mls/hr IV Q1H PENDING SALE TO [facility] Stop: 03/19/21 21:14 Isosorbide Mononitrate (Isosorbide Mononitrate 60 Mg Tab.Er.24h) 120 mg PO DAILY PENDING SALE TO [facility]; Protocol Levothyroxine Sodium (Levothyroxine Sodium 75 Mcg Tablet) 75 mcg PO DAILY PENDING SALE TO [facility] Non-Formulary Medication (Ferrous Gluconate) 324 mg PO BID PENDING SALE TO [facility] Omeprazole (Omeprazole 20 Mg Capsule.Dr) 20 mg PO BID PENDING SALE TO [facility] Pharmacy Consult (Consult Rx Perform Med Rec) 1 each MISCELLANE ONCE PRN PRN Reason: Consult order Vitamin D (Cholecalciferol (Vitamin D3) 25 Mcg Tablet) 50 mcg PO DAILY PENDING SALE TO [facility] Home Medications Medication Instructions Recorded Confirmed Last Taken Type albuterol sulfate 90 mcg/actuation 2 puff INHALATION Q4H 03/19/21 03/19/21 Unknown History aerosol inhaler (Ventolin HFA) hydralazine 100 mg tablet 100 mg PO TID 03/19/21 03/19/21 Unknown History Physical Exam Vital Signs and Narrative: Vital Signs: Last Vital Signs Temp 98.7 F 03/19/21 18:53 Pulse 72 03/19/21 18:53 Resp 39 H 03/19/21 18:53 BP 200/72 H 03/19/21 18:53 Pulse Ox 99 03/19/21 18:53 BMI result Body Mass Index 30.9 Results Labs CBC and Chem 7: 03/19/21 14:25 03/19/21 14:26 Labs: Laboratory Results - last 24 hr 03/19/21 03/19/21 03/19/21 13:32 14:25 14:25 MCV 89.6 MCH 29.9 MCHC 33.3 RDW 14.6 Plt Count 287 MPV 9.7 Immature Gran % (Auto) 0.2 Neut % (Auto) 73.4 H Lymph % (Auto) 21.3 [place] % (Auto) 4.7 Eos % (Auto) 0.2 Baso % (Auto) 0.2 Lymph # (Auto) 1.0 L [place] # (Auto) 0.2 Eos # (Auto) 0.0 Baso # (Auto) 0.0 Abs Immat Gran (auto) 0.01 Absolute Neuts (auto) 3.3 Absolute Nucleated RBC 0.000 Nucleated RBC % (auto) 0.0 VBG pH VBG pCO2 VBG pO2 VBG HCO3 VBG O2 Saturation VBG Base Excess Anion Gap Estim Creat Clear Calc Estimated GFR POC Glucose 88 Random Glucose Lactic Acid Calcium Magnesium Total Bilirubin Direct Bilirubin AST ALT Alkaline Phosphatase Troponin I High Sens B-Natriuretic Peptide Total Protein Albumin Lipase TSH Free T4 COVID-19 (ADRIANA) COVID-19 Clin Com Blood Type O Positive Antibody Screen NEGATIVE 03/19/21 03/19/21 03/19/21 14:26 14:26 14:26 MCV MCH MCHC RDW Plt Count MPV Immature Gran % (Auto) Neut % (Auto) Lymph % (Auto) [place] % (Auto) Eos % (Auto) Baso % (Auto) Lymph # (Auto) [place] # (Auto) Eos # (Auto) Baso # (Auto) Abs Immat Gran (auto) Absolute Neuts (auto) Absolute Nucleated RBC Nucleated RBC % (auto) VBG pH VBG pCO2 VBG pO2 VBG HCO3 VBG O2 Saturation VBG Base Excess Anion Gap 10 L Estim Creat Clear Calc 20.1 Estimated GFR 23 POC Glucose Random Glucose 94 Lactic Acid 1.0 Calcium 7.7 L D Magnesium 1.6 Total Bilirubin 0.4 Direct Bilirubin 0.2 AST 28 ALT 22 Alkaline Phosphatase 119 H D Troponin I High Sens B-Natriuretic Peptide Total Protein 3.9 L Albumin 1.4 L D Lipase 44 TSH Free T4 COVID-19 (ADRIANA) Negative COVID-19 Clin Com See Note Blood Type Antibody Screen 03/19/21 03/19/21 03/19/21 14:26 14:26 14:31 MCV MCH MCHC RDW Plt Count MPV Immature Gran % (Auto) Neut % (Auto) Lymph % (Auto) [place] % (Auto) Eos % (Auto) Baso % (Auto) Lymph # (Auto) [place] # (Auto) Eos # (Auto) Baso # (Auto) Abs Immat Gran (auto) Absolute Neuts (auto) Absolute Nucleated RBC Nucleated RBC % (auto) VBG pH 7.45 H VBG pCO2 34 VBG pO2 48 VBG HCO3 24 VBG O2 Saturation 76.0 VBG Base Excess 0.7 Anion Gap Estim Creat Clear Calc Estimated GFR POC Glucose Random Glucose Lactic Acid Calcium Magnesium Total Bilirubin Direct Bilirubin AST ALT Alkaline Phosphatase Troponin I High Sens 43.4 H B-Natriuretic Peptide 646 H Total Protein Albumin Lipase TSH 34.96 H Free T4 0.52 L COVID-19 (ADRIANA) COVID-19 Clin Com Blood Type Antibody Screen Imaging Radiologist's Impressions: Impressions Chest X-Ray 03/19/21 14:05 IMPRESSION: Mild haziness in left lung base likely effusion with underlying atelectasis. Abdomen/Pelvis CT 03/19/21 15:42 IMPRESSION: Cirrhotic-appearing. Moderate amount of ascites. Gallstones. Severe diverticulosis of the colon. Severe atherosclerotic disease. Fluid-filled loops of small bowel and small bowel mesentery edema. It is difficult to exclude a small amount of extraluminal air adjacent to loops of small bowel in the lower midline abdomen as described above. Correlation with lactate level and imaging follow-up should be considered if clinically indicated. Recent appearing L1 vertebral body compression fracture. Diffuse edema or anasarca. Findings will be communicated by the [place] work flow biometrics consultant Candi Baumann. Fleischner guidelines were followed. Chest CT 03/19/21 15:44 IMPRESSION: Moderate left and small right pleural effusions. Mild compressive atelectasis of the left lower lobe adjacent to the pleural effusion. 1 cm left upper lobe pulmonary nodule stable from previous exam. Coronary artery and aortic valve calcification. Fleischner guidelines were followed. Assessment and Plan (1) CHF (congestive heart failure): Qualifiers: Heart failure chronicity: acute on chronic Heart failure type: unspecified Qualified Code(s): I50.9 - Heart failure, unspecified Status: Acute (2) Paroxysmal atrial fibrillation: Status: Acute (3) Hypothyroid: Qualifiers: Hypothyroidism type: acquired Qualified Code(s): E03.9 - Hypothyroidism, unspecified Status: Acute (4) Edema: Status: Acute (5) Diabetic nephropathy associated with type 2 diabetes mellitus: Status: Acute (6) CKD (chronic kidney disease) stage 4, GFR 15-29 ml/min: Status: Acute (7) Pulmonary nodule: Status: Acute 80-year-old female with a past medical history of hypertension, hyperlipidemia, diabetes, CAD, CHF, CKD, guided stenosis, hypothyroidism, pulmonary nodule, RAISA, paroxysmal AFib -not on anticoagulation, history of thyroid cancer status post thyroidectomy, anemia, COPD, GERD presented to the hospital today with a chief complaint of shortness of breath/generalized weakness/vomiting. Shortness of breath: Patient currently saturating 99% on room air. Noted to have crackles on examination. CT chest showed moderate left pleural effusion and small right pleural effusion. CT abdomen showed anasarca/ascites. Likely in setting of CHF/pleural effusions. Supplemental oxygen p.r.n.. DuoNebs p.r.n.. Acute CHF exacerbation: Echocardiogram from December 2019 showed EF greater than 70%, inferior segment hypokinetic, no valvular pathology. Monitor on telemetry. Daily weights and I's and O's Lasix 40 mg IV daily Cardiology consult Will repeat echocardiogram Indeterminate troponins-EKG nonischemic. Patient denies any chest pain. Likely in the setting of demand/reduced clearance. Will continue to monitor. Continue home Imdur, hydralazine, carvedilol, statin Monitor leads Hypertensive urgency: Patient received labetalol in the ER. Will continue home medications carvedilol, hydralazine, Imdur, amlodipine. Anasarca: Likely in setting of hypoalbuminemia from liver disease. Will give IV albumin. Will keep the patient on high-protein diet. Liver cirrhosis: Patient's LFTs within normal limits. Gastroenterology follow-up for further evaluation. MARILEE on CKD: Patient's baseline creatinine around 1.6. On presentation patient creatinine is 2.0. Avoid nephrotoxins. Monitor renal function while diuresing. Hypothyroidism: Patient TSH elevated to 34. Low free T4. Unclear if the patient had recent anus in her levothyroxine dose. Will have the day team confirm with the PCP and adjust levothyroxine dose. Diabetes: Insulin sliding scale Mesenteric edema: Likely in the setting of anasarca. Lactate within normal limit. Abdominal exam benign. Patient has severe atherosclerotic disease, mesenteric ischemia is in the differential-less concern given benign abdominal examination, lactate being normal. Will continue to monitor clinically. L1 compression fracture: Outpatient follow-up with Neurosurgery. PT/OT. DVT prophylaxis: Subcu heparin Code status: Full code Quality Stroke Does the patient have a stroke diagnosis?: No VTE Prior VTE?: No VTE Risk Level:: Medical - moderate - high VTE Device Contraindication: Treatment Not Indicated VTE Drug Contraindication: N/A - Med Ordered
[2021-03-19] MEDS: Heparin Sodium,Porcine 5,000 UNIT/ML VIAL 5000 UNIT SUBCUT (19:45)
[2021-03-19] MEDS: Albuterol Sulfate 90 MCG 8 GM INHALER 2 PUFF INHALE (19:53)
--- NOTE | 2021-03-19 20:31 | PC.NURSE ---
Report given to Rebecca SALDIVAR in ED overflow unit. PT being transferred now via stretcher by die technician.
[2021-03-19 20:52] LABS: Troponin-I High Sensitivity 42.8 ng/L (<3.5-17.0)
[2021-03-19 21:01] LABS: Glucose, Whole Blood 113 mg/dL (60-115)
[2021-03-19] MEDS: Ferrous Sulfate 324 MG TABLET.DR PO (21:22)
[2021-03-19] MEDS: carvediloL 6.25 MG TABLET PO (21:22)
[2021-03-19] MEDS: hydrALAZINE HCl 50 MG TABLET 100 MG PO (21:22)
[2021-03-19] MEDS: Atorvastatin Calcium 80 MG TABLET PO (21:22)
--- NOTE | 2021-03-19 22:41 | PC.NURSE ---
Pt frustrated and yelling that she cannot sleep. Offered PRNs, pt declined. Attempted to explain that a certain level of noise and light is unavoidable in the hospital. Pt also encouraged to use call light, refuses and continues to yell instead. Requesting to talk to the imaging account manager . rn surgical pcu Alison notified
--- NOTE | 2021-03-19 23:04 | PC.NURSE ---
Pt endorsing new onset chest pain, vitals as charted, MD Tobias notified. Repeat trops and EKG noted. Pt remains attached to childcare worker
[2021-03-19 23:36] LABS: Troponin-I High Sensitivity 50.7 ng/L (<3.5-17.0)
[2021-03-20] VITALS (11 sets, daily range): BP systolic 123–210; BP diastolic 46–84; PULSE 72–99; RESP 12–30; TEMP 36.9–37.1; O2SAT 95–97
[2021-03-20] MEDS: Melatonin 3 MG TABLET 6 MG PO (00:11)
[2021-03-20] MEDS: Levothyroxine Sodium 75 MCG TABLET PO (06:19)
[2021-03-20] MEDS: Omeprazole 20 MG CAPSULE.DR PO ×2 (06:20→17:51)
[2021-03-20 06:47] LABS: MANUAL DIFF FLAG NO
[2021-03-20 06:50] LABS: Basophils Percent Auto 0.3 % (0-2); Eosinophils Absolute Auto 0.1 X10*3/uL (0.0-0.4); Eosinophils Percent Auto 1.9 % (0-4); Hematocrit 25.3 % (37.0-47.0); Hemoglobin 8.2 g/dl (12.0-16.0); Imm Gran Abs Auto 0.01 X10*3/uL (0.00-0.03); Imm Gran Pct Auto 0.2 % (0.0-0.4); Lymphocytes Absolute Auto 1.3 X10*3/uL (1.2-4.9); Lymphocytes Percent Auto 22.5 % (20-40); Mean Corpuscular HGB Conc 32.4 g/dl (31.0-35.0); Mean Corpuscular Hemoglobin 29.2 pg (27.0-33.0); Mean Platelet Volume 9.6 fL (9.4-12.3); Monocytes Absolute Auto 0.4 X10*3/uL (0.1-1.2); Monocytes Percent Auto 6.8 % (2-11); Neutrophils Percent Auto 68.3 % (45-73); Platelet Count 249 X10*3/uL (160-400); Red Blood Count 2.81 X10*6/uL (4.20-5.50); Red Cell Distribution Width 14.4 % (11.0-16.0); White Blood Count 5.9 X10*3/uL (4.8-10.8)
[2021-03-20 07:02] LABS: Anion Gap 11 (12-20); Blood Urea Nitrogen 16 mg/dL (9-16); Calcium 7.8 mg/dL (8.4-10.2); Carbon Dioxide 22 mmol/L (22-29); Chloride 113 mmol/L (96-108); Creatinine Clr Calc Pharmacy 20.5; Estimated Glomerular Filt Rate 24; Glucose Random 86 mg/dL (60-115); Potassium 3.5 mmol/L (3.3-5.1); Sodium 142 mmol/L (135-145)
[2021-03-20 07:26] LABS: Glucose, Whole Blood 77 mg/dL (60-115)
--- NOTE | 2021-03-20 07:30 | CA_ITS ---
Transthoracic Echocardiogram Patient (Last, First, Middle): Marielena Medina C Gender: Female Date of : 1940 Age: 80 Procedure Date: 03/20/2021 Procedure Type: Transthoracic Echocardiogram Location: ER Height: 154.94 cm Weight: 74.39 kg BSA: 1.74 m2 Heart Rate: bpm BP: 195 / 66 mmHg Leasing Associate: RASHEEDA Referring MD: Andrey Tobias MD Symptoms: chf Study Quality: Fair ECG Rhythm: Sinus Conclusions: - The left ventricular systolic function is normal. The calculated ejection fraction is 59% by biplane method. - The basal inferior segment is hypokinetic. - There is moderate calcification of the aortic valve. There is mild aortic valve stenosis. - There is mild mitral annular calcification. There is mild mitral valve regurgitation. - Moderate pulmonary hypertension is present. Findings Left Ventricle Normal left ventricular cavity size. There is mildly increased left ventricular wall thickness. The left ventricular systolic function is normal. The calculated ejection fraction is 59% by biplane method. There is evidence of regional wall motion abnormalities. Diastolic function is indeterminate on the basis of available data. Wall Motion Rest Echo Findings The basal inferior segment is hypokinetic. Right Ventricle Normal right ventricular cavity size. There is low normal right ventricular systolic function. TAPSE 1.7cm. Atria The left atrium is mildly dilated. The right atrium is normal in size. Aortic Valve There is moderate calcification of the aortic valve. There is mild aortic valve stenosis. The peak aortic velocity is 2.54 m/s with a calculated peak gradient of 26 mmHg. The mean gradient is 14 mmHg. The aortic valve area is 1.12 cm2. There is mild aortic valve regurgitation. Mitral Valve There is mild mitral annular calcification. There is mild mitral valve regurgitation. There is no mitral valve stenosis. Pulmonic Valve The pulmonic valve was not well visualized. Tricuspid Valve There is mild tricuspid valve regurgitation. The right ventricular systolic pressure is 52 mmHg. Moderate pulmonary hypertension is present. Great Vessels The asc aorta is normal in size. Venous The inferior vena cava is normal in size and collapses greater than 50% with inspiration. Pericardium/Pleural There is no evidence of pericardial effusion. Prior Study Comparison Changes noted compared to prior study dated: 01/02/2020. LV no longer hyperdynamic. Increase in RVSP. Measurements 2D Linear Measurements IVSd: 1.22 0.6-0.9/0.6-1.0 cm LVIDd: 3.55 3.9-5.3/4.2-5.9 cm LVIDd Index: 2.04 2.4-3.2/2.2-3.1 cm/m2 LVIDs: 2.20 2.0-3.6 cm LVPWd: 1.11 0.7-1.1 cm Ao Root: 2.70 2.1-3.5 cm LA Diam: 3.80 2.7-3.8/3.0-4.0 cm LAIDs Index: 2.18 1.5-2.3 cm/m2 LV Mass: 164.90 67-162/88-224 g LV Mass Index: 94.77 43-95/49-115 g/m2 LVOT Diam: 1.90 3.0+(-)1.3 cm 2D Systolic Function EF 4C: 60.50 >55% EF 2C: 60.30 >55% EF BiP: 59.20 >55% Aortic Valve AoV Pk Greg: 2.54 AoV Mn Greg: 1.75 AoV VTI: 0.55 AoV Pk Grad: 26.00 Aov Mn Grad: 14.00 CHRISTOPHER Cont.VTI: 1.12 AI Pk Greg: 4.29 AI [place]: 3.61 LVOT LVOT Pk Greg: 0.86 LVOT Mn Greg: 0.59 LVOT VTI: 0.22 LVOT Pk Grad: 3.00 LVOT Mn Grad: 2.00 LVOT Diam: 1.90 LVOT Area: 2.84 Right Ventricle TAPSE (mm): 1.69 TVS' Greg: 9.90 Tricuspid Valve TR Pk Greg: 3.30 TR Pk Grad: 44.00 RA Press: 8.00 RVSP: 52.00 Great Vessels Aorta Ao Root-2D: 2.70 2.0-3.7 cm Ao Asc: 2.80 2.1-3.4 cm Ao Arch: 2.70 Updated in Other Vendor System with Status of Final Art Germain MD electronically signed on 03/20/2021 4:42:59 PM with status of Final
--- NOTE | 2021-03-20 08:14 | PC.NURSE ---
Addendum entered by Emili Lion RN 03/20/21 08:43: During med pass, expiration wheeze now auscultated Original Note: Pt received from casino shift manager: Pt alert but dioriented to place, time and situation. Pt able to recall her name, and able to ask for help if needed. NSR with dimished lung sounds. Pt present bowel sounds with non-tenderness. No [place] or purewick noted, but pt is intermittently incontinent of urine and bowel. Pt having intermittent diarrhea.
[2021-03-20] MEDS: carvediloL 6.25 MG TABLET PO ×2 (08:33→20:39)
[2021-03-20] MEDS: amLODIPine Besylate 10 MG TABLET PO (08:34)
[2021-03-20] MEDS: Ferrous Sulfate 324 MG TABLET.DR PO ×2 (08:34→20:39)
[2021-03-20] MEDS: hydrALAZINE HCl 50 MG TABLET 100 MG PO ×2 (08:34→17:50)
[2021-03-20] MEDS: Isosorbide Mononitrate 60 MG TAB.ER.24H 120 MG PO (08:34)
[2021-03-20] MEDS: Cholecalciferol (Vitamin D3) 25 MCG TABLET 50 MCG PO (08:34)
[2021-03-20] MEDS: Heparin Sodium,Porcine 5,000 UNIT/ML VIAL 5000 UNIT SUBCUT ×2 (08:34→20:40)
[2021-03-20] MEDS: Furosemide 40 MG/4 ML VIAL IVPUSH (08:35)
[2021-03-20] MEDS: Albuterol Sulfate 90 MCG 8 GM INHALER 2 PUFF INHALE ×4 (08:54→20:33)
--- NOTE | 2021-03-20 10:23 | P.CDIC_ITS ---
CDI Concurrent Query Documentation Clarification: PHYSICIAN'S DOCUMENTATION REQUEST Date of Query: 03/20/21 1024 Patient Name: Marielena Medina Admit Date: 03/19/21 Dear Doctor, A review of the medical record indicates additional documentation may be needed. Please review below and update the documentation accordingly. Clinical Indicators: Risk Factors/Clinical Indicators/Treatments Per H&P: Acute on Chronic CHF BNP 646 On IV Lasix Cardiology and ECHO pending CXR: effusion Please provide further specificity regarding the most likely type and acuity of CHF you are evaluating, treating, or monitoring. Examples include: Type: * Systolic * Diastolic * Combined Systolic/Diastolic * Other ? please specify * Unable to determine Use of terms such as suspected, likely, concern for, or probable (associated with a specific diagnosis that is being evaluated, monitored, or treated as if it exists) are acceptable and can be coded in the inpatient setting, when documented at the time of discharge. Thank you, Mary Hodgson RN Extension: [phone] Please use your independent medical judgment in providing your response. THIS QUERY IS PART OF THE PERMANENT MEDICAL RECORD Provider Response: Other Other Diagnosis: unable to determine at this time; await echo
--- NOTE | 2021-03-20 10:59 | P.CONCA_ITS ---
History of Present Illness History of Present Illness Date of Service: 03/20/21 Chief complaint: Anasarca Narrative: This is a cardiology consultation regarding congestive heart failure. Patient herself is a very poor historian and unable to give any information whatsoever. I questioned her numerous times as to why she is here and she states she really does not know. Then based on the H and Ps information about shortness of breath I questioned her about if she is feeling this way and she stated that possibly but again not very clear card information from patient. Overall, she is not able to elaborate much. Denies any typical anginal type symptoms. It seems that she had shortness of breath and some weight gain with lower extremity swelling and that led to the hospitalization. Per admission notes, EMS found her in vomitus, dried stool on the legs and then she was also found to have elevated blood pressure and subsequently referred for admission. Review of Systems Review of Systems: Yes all other systems are reviewed and are negative Cardiovascular: Cardiovascular: Reports as per HPI, Reports no additional cardiovascular complaints, Denies acrocyanosis, Denies cool extremities, Denies painful fingertips, Denies chest pain, Denies chest pain at rest, Denies diaphoresis, Denies syncope, Denies irregular heart rhythm, Denies claudication, Denies leg edema, Denies lightheadedness, Denies palpitations and Reports dyspnea Respiratory: Respiratory: Reports dyspnea Neurologic: Denies syncope Endocrine: Endocrine: Denies palpitations PMF Past Medical History Medical History Acute on chronic kidney failure Acute UTI Anemia in chronic kidney disease Bronchitis CAD (coronary artery disease) Carotid stenosis, bilateral CKD (chronic kidney disease) stage 4, GFR 15-29 ml/min COPD (chronic obstructive pulmonary disease) Diabetes mellitus with chronic kidney disease, with long-term current use of insulin Diabetic nephropathy associated with type 2 diabetes mellitus Dyslipidemia Gastritis GERD (gastroesophageal reflux disease) HTN (hypertension) Hypothyroid Left thalamic infarction Obesity RAISA (obstructive sleep apnea) Paroxysmal atrial fibrillation Pedal edema Post-surgical hypothyroidism Primary thyroid cancer Pulmonary nodule Respiratory crackles at both lung bases Sepsis Thyroid cancer Family History Family History Father CVD (cardiovascular disease) Mother CVD (cardiovascular disease) Brother CVD (cardiovascular disease) Parkinson disease Surgical History Surgical History H/O angioplasty H/O heart artery stent History of thyroidectomy Hx of appendectomy S/P JOHN-BSO (~1997) Social History Social History Household Members: Spouse Housing: Other Housing Other:: mobile home Do you presently have visiting nurse or other home services: Yes Alcohol intake: unknown Patient Tobacco Use Status: Tobacco use Unknown Second Hand Smoke Exposure: No Advance Directives: Yes Advance Directives on File: Yes Advance Directives Date on File: 03/08/20 service: No Current occupational status: retired Meds Allergies Allergy/AdvReac Type Severity Reaction Status Date / Time oxycodone Allergy Unknown rash Verified 09/24/20 21:32 Active Medications: Current Medications Albuterol Sulfate (Albuterol Sulfate 90 Mcg 8 Gm Inhaler) 2 puff INHALE RQ4H MORIAH Last Admin: 03/20/21 08:54 Dose: 2 puff Documented by: Amlodipine Besylate (Amlodipine Besylate 10 Mg Tablet) 10 mg PO DAILY MORIAH; Protocol Last Admin: 03/20/21 08:34 Dose: 10 mg Documented by: Atorvastatin Calcium (Atorvastatin Calcium 80 Mg Tablet) 80 mg PO BEDTIME MORIAH Last Admin: 03/19/21 21:22 Dose: 80 mg Documented by: Carvedilol (Carvedilol 6.25 Mg Tablet) 6.25 mg PO BID MORIAH; Protocol Last Admin: 03/20/21 08:33 Dose: 6.25 mg Documented by: Dextrose (Dextrose 50 % 25 Gm/50 Ml Vial) 25 gm IVPUSH Q15M PRN; Protocol PRN Reason: per Hypoglycemia Standing Ord. Doxazosin Mesylate (Doxazosin Mesylate 2 Mg Tablet) 12 mg PO DAILY MORIAH; Protoco l Ferrous Sulfate (Ferrous Sulfate 324 Mg Tablet.Dr) 324 mg PO BID MORIAH Last Admin: 03/20/21 08:34 Dose: 324 mg Documented by: Furosemide (Furosemide 40 Mg/4 Ml Vial) 40 mg IVPUSH DAILY MORIAH; Protocol Last Admin: 03/20/21 08:35 Dose: 40 mg Documented by: Glucose (Glucose Gel 15 Gm Gel..Gram.) 15 gm PO Q15M PRN; Protocol PRN Reason: per Hypoglycemia Standing Ord. Heparin Sodium (Porcine) (Heparin Sodium,Porcine 5,000 Unit/Ml Vial) 5,000 unit SUBCUT Q12H [facility] Last Admin: 03/20/21 08:34 Dose: 5,000 unit Documented by: Hydralazine HCl (Hydralazine Hcl 50 Mg Tablet) 100 mg PO TID [facility]; Protocol Last Admin: 03/20/21 08:34 Dose: 100 mg Documented by: Insulin Human Lispro (Insulin Lispro 100 Unit/Ml 3 Ml Vial) 0 unit SUBCUT QIDACHS [facility]; Protocol Last Admin: 03/20/21 08:11 Dose: Not Given Documented by: Isosorbide Mononitrate (Isosorbide Mononitrate 60 Mg Tab.Er.24h) 120 mg PO DAILY [facility]; Protocol Last Admin: 03/20/21 08:34 Dose: 120 mg Documented by: Levothyroxine Sodium (Levothyroxine Sodium 75 Mcg Tablet) 75 mcg PO DAILY@0600 [facility] Last Admin: 03/20/21 06:19 Dose: 75 mcg Documented by: Melatonin (Melatonin 3 Mg Tablet) 6 mg PO BEDTIME PRN PRN Reason: Insomnia Last Admin: 03/20/21 00:11 Dose: 6 mg Documented by: Omeprazole (Omeprazole 20 Mg Capsule.) 20 mg PO BID@0630,1630 [facility] Last Admin: 03/20/21 06:20 Dose: 20 mg Documented by: Pharmacy Consult (Consult Rx Perform Med Rec) 1 each MISCELLANE ONCE PRN PRN Reason: Consult order Senna (Sennosides 8.6 Mg Tablet) 17.2 mg PO BEDTIME PRN PRN Reason: Constipation Sodium Chloride (0.9 % Sodium Chloride Flush 3 Ml Syringe) 3 ml IVFLUSH QSHIFT [facility] Last Admin: 03/20/21 08:11 Dose: Not Given Documented by: Vitamin D (Cholecalciferol (Vitamin D3) 25 Mcg Tablet) 50 mcg PO DAILY [facility] Last Admin: 03/20/21 08:34 Dose: 50 mcg Documented by: Home Medications Medication Instructions Recorded Confirmed Last Taken Type albuterol sulfate 90 mcg/actuation 2 puff INHALATION Q4H 03/19/21 03/19/21 Unknown History aerosol inhaler (Ventolin HFA) hydralazine 100 mg tablet 100 mg PO TID 03/19/21 03/19/21 Unknown History Physical Exam Vital Signs: Vital Signs: Last Vital Signs Temp 98.8 F 03/20/21 08:14 Pulse 74 03/20/21 10:01 Resp 18 03/20/21 10:01 BP 124/48 L 03/20/21 10:01 Pulse Ox 97 03/20/21 10:01 BMI result Body Mass Index 30.9 Const: General: no acute distress HENMT: Other: Unremarkable Neck: Neck: Yes normal visual inspection Chest: Chest palpation & inspection: normal inspection of the chest Resp: Auscultation: crackles and no wheezes Cardio: Palpation: normal PMI Heart sounds: S1 normal heart sound present, S2 normal heart sound present, no gallops, no murmurs and no rubs GI: Palpation (GI): Soft to palpation Back/Spine/Pelvis: Other: unremarkable Skin: Lesions: other Neuro: Cranial nerves: Yes Other cranial nerve findings present Extrem: Other: 1+ edema General: Yes other Psych: Mental Status: other Objective Labs and Meds Result diagrams: 03/20/21 06:41 03/20/21 06:41 Lab results: Laboratory Results - last 24 hr 03/19/21 03/19/21 03/19/21 13:32 14:25 14:25 WBC 4.5 L RBC 3.35 L Hgb 10.0 L Hct 30.0 L MCV 89.6 MCH 29.9 MCHC 33.3 RDW 14.6 Plt Count 287 MPV 9.7 Immature Gran % (Auto) 0.2 Neut % (Auto) 73.4 H Lymph % (Auto) 21.3 Riley % (Auto) 4.7 Eos % (Auto) 0.2 Baso % (Auto) 0.2 Lymph # (Auto) 1.0 L Riley # (Auto) 0.2 Eos # (Auto) 0.0 Baso # (Auto) 0.0 Abs Immat Gran (auto) 0.01 Absolute Neuts (auto) 3.3 Absolute Nucleated RBC 0.000 Nucleated RBC % (auto) 0.0 VBG pH VBG pCO2 VBG pO2 VBG HCO3 VBG O2 Saturation VBG Base Excess Sodium Potassium Chloride Carbon Dioxide Anion Gap BUN Creatinine Estim Creat Clear Calc Estimated GFR POC Glucose 88 Random Glucose Lactic Acid Calcium Magnesium Total Bilirubin Direct Bilirubin AST ALT Alkaline Phosphatase Troponin I High Sens B-Natriuretic Peptide Total Protein Albumin Lipase TSH Free T4 COVID-19 (ADRIANA) Tagstr Com Blood Type O Positive Antibody Screen NEGATIVE 03/19/21 03/19/21 03/19/21 14:26 14:26 14:26 WBC RBC Hgb Hct MCV MCH MCHC RDW Plt Count MPV Immature Gran % (Auto) Neut % (Auto) Lymph % (Auto) Riley % (Auto) Eos % (Auto) Baso % (Auto) Lymph # (Auto) Riley # (Auto) Eos # (Auto) Baso # (Auto) Abs Immat Gran (auto) Absolute Neuts (auto) Absolute Nucleated RBC Nucleated RBC % (auto) VBG pH VBG pCO2 VBG pO2 VBG HCO3 VBG O2 Saturation VBG Base Excess Sodium 142 Potassium 4.0 Chloride 112 H Carbon Dioxide 24 Anion Gap 10 L BUN 17 H Creatinine 2.05 H Estim Creat Clear Calc 20.1 Estimated GFR 23 POC Glucose Random Glucose 94 Lactic Acid 1.0 Calcium 7.7 L D Magnesium 1.6 Total Bilirubin 0.4 Direct Bilirubin 0.2 AST 28 ALT 22 Alkaline Phosphatase 119 H D Troponin I High Sens B-Natriuretic Peptide Total Protein 3.9 L Albumin 1.4 L D Lipase 44 TSH Free T4 COVID-19 (ADRIANA) Negative [email or web address] See Note Blood Type Antibody Screen 03/19/21 03/19/21 03/19/21 14:26 14:26 14:31 WBC RBC Hgb Hct MCV MCH MCHC RDW Plt Count MPV Immature Gran % (Auto) Neut % (Auto) Lymph % (Auto) Riley % (Auto) Eos % (Auto) Baso % (Auto) Lymph # (Auto) Riley # (Auto) Eos # (Auto) Baso # (Auto) Abs Immat Gran (auto) Absolute Neuts (auto) Absolute Nucleated RBC Nucleated RBC % (auto) VBG pH 7.45 H VBG pCO2 34 VBG pO2 48 VBG HCO3 24 VBG O2 Saturation 76.0 VBG Base Excess 0.7 Sodium Potassium Chloride Carbon Dioxide Anion Gap BUN Creatinine Estim Creat Clear Calc Estimated GFR POC Glucose Random Glucose Lactic Acid Calcium Magnesium Total Bilirubin Direct Bilirubin AST ALT Alkaline Phosphatase Troponin I High Sens 43.4 H B-Natriuretic Peptide 646 H Total Protein Albumin Lipase TSH 34.96 H Free T4 0.52 L COVID-19 (ADRIANA) [email or web address] Blood Type Antibody Screen 03/19/21 03/19/21 03/19/21 20:25 20:55 23:05 WBC RBC Hgb Hct MCV MCH MCHC RDW Plt Count MPV Immature Gran % (Auto) Neut % (Auto) Lymph % (Auto) Riley % (Auto) Eos % (Auto) Baso % (Auto) Lymph # (Auto) Riley # (Auto) Eos # (Auto) Baso # (Auto) Abs Immat Gran (auto) Absolute Neuts (auto) Absolute Nucleated RBC Nucleated RBC % (auto) VBG pH VBG pCO2 VBG pO2 VBG HCO3 VBG O2 Saturation VBG Base Excess Sodium Potassium Chloride Carbon Dioxide Anion Gap BUN Creatinine Estim Creat Clear Calc Estimated GFR POC Glucose 113 Random Glucose Lactic Acid Calcium Magnesium Total Bilirubin Direct Bilirubin AST ALT Alkaline Phosphatase Troponin I High Sens 42.8 H 50.7 H* B-Natriuretic Peptide Total Protein Albumin Lipase TSH Free T4 COVID-19 (ADRIANA) COVID-19 [employer] Com Blood Type Antibody Screen 03/20/21 03/20/21 03/20/21 06:41 06:41 07:18 WBC 5.9 RBC 2.81 L Hgb 8.2 L Hct 25.3 L MCV 90.0 MCH 29.2 MCHC 32.4 RDW 14.4 Plt Count 249 MPV 9.6 Immature Gran % (Auto) 0.2 Neut % (Auto) 68.3 Lymph % (Auto) 22.5 Riley % (Auto) 6.8 Eos % (Auto) 1.9 Baso % (Auto) 0.3 Lymph # (Auto) 1.3 Riley # (Auto) 0.4 Eos # (Auto) 0.1 Baso # (Auto) 0.0 Abs Immat Gran (auto) 0.01 Absolute Neuts (auto) 4.0 Absolute Nucleated RBC 0.000 Nucleated RBC % (auto) 0.0 VBG pH VBG pCO2 VBG pO2 VBG HCO3 VBG O2 Saturation VBG Base Excess Sodium 142 Potassium 3.5 Chloride 113 H Carbon Dioxide 22 Anion Gap 11 L BUN 16 Creatinine 2.02 H Estim Creat Clear Calc 20.5 Estimated GFR 24 POC Glucose 77 Random Glucose 86 Lactic Acid Calcium 7.8 L Magnesium Total Bilirubin Direct Bilirubin AST ALT Alkaline Phosphatase Troponin I High Sens B-Natriuretic Peptide Total Protein Albumin Lipase TSH Free T4 COVID-19 (ADRIANA) COVID-19 Clin Com Blood Type Antibody Screen ECG Interpretation: EKG shows likely sinus rhythm but P-waves are very subtle. Rate on today's EKG 96/Min. There is diffuse, mild T inversions. LA and QT are within normal limits. Imaging Radiologist's impression: Impressions Chest X-Ray 03/19/21 14:05 IMPRESSION: Mild haziness in left lung base likely effusion with underlying atelectasis. Abdomen/Pelvis CT 03/19/21 15:42 IMPRESSION: Cirrhotic-appearing. Moderate amount of ascites. Gallstones. Severe diverticulosis of the colon. Severe atherosclerotic disease. Fluid-filled loops of small bowel and small bowel mesentery edema. It is difficult to exclude a small amount of extraluminal air adjacent to loops of small bowel in the lower midline abdomen as described above. Correlation with lactate level and imaging follow-up should be considered if clinically indicated. Recent appearing L1 vertebral body compression fracture. Diffuse edema or anasarca. Findings will be communicated by the [place] [employer] flow parcel contractor Candi Baumann. Fleischner guidelines were followed. Chest CT 03/19/21 15:44 IMPRESSION: Moderate left and small right pleural effusions. Mild compressive atelectasis of the left lower lobe adjacent to the pleural effusion. 1 cm left upper lobe pulmonary nodule stable from previous exam. Coronary artery and aortic valve calcification. Fleischner guidelines were followed. Assessment and Plan (1) Acute diastolic (congestive) heart failure: Status: Acute (2) Hypertensive emergency: Status: Acute Last office note from our nurse practitioner reviewed. Based on this, she has a history of RCA PCI in 2006. She also has a history of paroxysmal atrial fibrillation but very brief and only for 6 hours during an admission for 2019 and hence not on anticoagulation; also due to chronic anemia. Additionally, carotid stenosis, being followed by ultrasound; moderately severe obstructive sleep apnea on CPAP but unknown compliance. High sensitivity troponins this time are on the higher side at 43, 42, 50. Cardiac BNP is 646 and a prior value from December was 218. CT chest reported to have moderate left and small right pleural effusions. Coronary/aortic valve calcification. Abdomen pelvis CT reported to have cirrhosis; moderate ascites and severe atherosclerotic disease. Previously, preserved LVEF on echocardiogram. Overall, without any clear history difficult to say what the main issue is. Could be multifactorial. Blood pressures were in the 200s upon arrival but seems much improved now. That could lead to diastolic heart failure. Additionally question of cirrhosis could also lead to ascites and generalized volume overload. She also has chronic kidney disease which plays a role. Additionally chronic anemia does not help either. Today's blood pressure seems to be back to normal which may be because of getting her usual medication - hence noncompliance possibly plays a role in high blood pressure. Otherwise, empiric diuretics for now and get a repeat echocardiogram. Will follow with you. Procedures Date of Service Date of Service: 03/20/21
--- NOTE | 2021-03-20 12:45 | MHC.CM.PN ---
this interview was conducted c pt's ,alondra, since pt's communication is impaired secondary to cva. patient lives c her in their home. he cares for her in all aspects of adl's since her cva approx 2yrs ago. pt has a walker but even ambulation c that is not safe per the - she falls . he tells me he has to help his c ambulation, transfers as well as toileting, dressing, food preparation, etc... they have no children and no svcs in the home. alondra is almost 85 yrs old and says he has health issues of his own. he tells me he still drives but his license expires in one month and he may not renew it. he also tells me that he cannot care for his any more...it is just too much for him and she falls at home. pt has been to STR's in the past, per she would like to go to [facility] of if she needs STR at dc - pending a PT eval. a ref. to [facility] has been made. pt has had two [employer] vaccines in the spring. alondra is patient hcp which is in EMR as well as molst. dc plan is to STR pending a PT eval . cm to cont. to follow.
[2021-03-20 13:28] LABS: Glucose, Whole Blood 95 mg/dL (60-115)
[2021-03-20] MEDS: Magnesium Hydrox/Alum Hydrox 30 ML ORAL.SUSP PO (15:49)
[2021-03-20 16:29] LABS: Glucose, Whole Blood 117 mg/dL (60-115)
--- NOTE | 2021-03-20 16:37 | P.PNIM_ITS ---
Subjective Subjective Date of Service: 03/20/21 Interval History: no acute events overnight. Breathing at baseline Review of Systems denies chest pain Denies shortness of breath Denies nausea vomiting diarrhea Physical Exam Vital Signs: Vital Signs: Last Vital Signs Temp 98.4 F 03/20/21 16:02 Pulse 74 03/20/21 16:02 Resp 17 03/20/21 16:02 BP 126/57 L 03/20/21 16:02 Pulse Ox 96 03/20/21 16:02 BMI result Body Mass Index 30.9 Objective Data Active Medications Al Hydroxide/Mg Hydroxide (Magnesium Hydrox/Alum Hydrox 30 Ml Oral.Susp) 30 ml PO Q4H PRN PRN Reason: GI Upset Last Admin: 03/20/21 15:49 Dose: 30 ml Documented by: DOROTA Albuterol Sulfate (Albuterol Sulfate 90 Mcg 8 Gm Inhaler) 2 puff INHALE RQ4H MORIAH Last Admin: 03/20/21 14:35 Dose: 2 puff Documented by: CYNDIE Amlodipine Besylate (Amlodipine Besylate 10 Mg Tablet) 10 mg PO DAILY MORIAH; Protocol Last Admin: 03/20/21 08:34 Dose: 10 mg Documented by: HANK Atorvastatin Calcium (Atorvastatin Calcium 80 Mg Tablet) 80 mg PO BEDTIME MORIAH Last Admin: 03/19/21 21:22 Dose: 80 mg Documented by: BRADY Carvedilol (Carvedilol 6.25 Mg Tablet) 6.25 mg PO BID MORIAH; Protocol Last Admin: 03/20/21 08:33 Dose: 6.25 mg Documented by: HANK Dextrose (Dextrose 50 % 25 Gm/50 Ml Vial) 25 gm IVPUSH Q15M PRN; Protocol PRN Reason: per Hypoglycemia Standing Ord. Doxazosin Mesylate (Doxazosin Mesylate 2 Mg Tablet) 12 mg PO DAILY MORIAH; Protocol Last Admin: 03/20/21 12:10 Dose: Not Given Documented by: HANK Non-Admin Reason: other Ferrous Sulfate (Ferrous Sulfate 324 Mg Tablet.Dr) 324 mg PO BID MORIAH Last Admin: 03/20/21 08:34 Dose: 324 mg Documented by: HANK Furosemide (Furosemide 40 Mg/4 Ml Vial) 40 mg IVPUSH DAILY MORIAH; Protocol Last Admin: 03/20/21 08:35 Dose: 40 mg Documented by: HANK Glucose (Glucose Gel 15 Gm Gel..Gram.) 15 gm PO Q15M PRN; Protocol PRN Reason: per Hypoglycemia Standing Ord. Heparin Sodium (Porcine) (Heparin Sodium,Porcine 5,000 Unit/Ml Vial) 5,000 unit SUBCUT Q12H [facility] Last Admin: 03/20/21 08:34 Dose: 5,000 unit Documented by: HANK Hydralazine HCl (Hydralazine Hcl 50 Mg Tablet) 100 mg PO TID [facility]; Protocol Last Admin: 03/20/21 15:49 Dose: Not Given Documented by: DOROTA Non-Admin Reason: Decreased Blood Pressure Insulin Human Lispro (Insulin Lispro 100 Unit/Ml 3 Ml Vial) 0 unit SUBCUT QIDACHS [facility]; Protocol Last Admin: 03/20/21 14:05 Dose: Not Given Documented by: HANK Non-Abelardo Reason: No Insulin Coverage Comments: B/S 95 Isosorbide Mononitrate (Isosorbide Mononitrate 60 Mg Tab.Er.24h) 120 mg PO DAILY [facility]; Protocol Last Admin: 03/20/21 08:34 Dose: 120 mg Documented by: HANK Levothyroxine Sodium (Levothyroxine Sodium 75 Mcg Tablet) 75 mcg PO DAILY@0600 [facility] Last Admin: 03/20/21 06:19 Dose: 75 mcg Documented by: MADAI Melatonin (Melatonin 3 Mg Tablet) 6 mg PO BEDTIME PRN PRN Reason: Insomnia Last Admin: 03/20/21 00:11 Dose: 6 mg Documented by: MADAI Omeprazole (Omeprazole 20 Mg Capsule.) 20 mg PO BID@0630,1630 [facility] Last Admin: 03/20/21 06:20 Dose: 20 mg Documented by: MADAI Pharmacy Consult (Consult Rx Perform Med Rec) 1 each MISCELLANE ONCE PRN PRN Reason: Consult order Senna (Sennosides 8.6 Mg Tablet) 17.2 mg PO BEDTIME PRN PRN Reason: Constipation Sodium Chloride (0.9 % Sodium Chloride Flush 3 Ml Syringe) 3 ml IVFLUSH QSHIFT [facility] Last Admin: 03/20/21 14:05 Dose: Not Given Documented by: HANK Non-Admin Reason: Med Not Available Vitamin D (Cholecalciferol (Vitamin D3) 25 Mcg Tablet) 50 mcg PO DAILY MORIAH Last Admin: 03/20/21 08:34 Dose: 50 mcg Documented by: HANK Labs CBC & Chem 7: 03/20/21 06:41 03/20/21 06:41 Labs: Laboratory Results - last 24 hr 03/19/21 03/19/21 03/19/21 20:25 20:55 23:05 MCV MCH MCHC RDW Plt Count MPV Immature Gran % (Auto) Neut % (Auto) Lymph % (Auto) [place] % (Auto) Eos % (Auto) Baso % (Auto) Lymph # (Auto) [place] # (Auto) Eos # (Auto) Baso # (Auto) Abs Immat Gran (auto) Absolute Neuts (auto) Absolute Nucleated RBC Nucleated RBC % (auto) Anion Gap Estim Creat Clear Calc Estimated GFR POC Glucose 113 Random Glucose Calcium Troponin I High Sens 42.8 H 50.7 H* 03/20/21 03/20/21 03/20/21 06:41 06:41 07:18 MCV 90.0 MCH 29.2 MCHC 32.4 RDW 14.4 Plt Count 249 MPV 9.6 Immature Gran % (Auto) 0.2 Neut % (Auto) 68.3 Lymph % (Auto) 22.5 [place] % (Auto) 6.8 Eos % (Auto) 1.9 Baso % (Auto) 0.3 Lymph # (Auto) 1.3 [place] # (Auto) 0.4 Eos # (Auto) 0.1 Baso # (Auto) 0.0 Abs Immat Gran (auto) 0.01 Absolute Neuts (auto) 4.0 Absolute Nucleated RBC 0.000 Nucleated RBC % (auto) 0.0 Anion Gap 11 L Estim Creat Clear Calc 20.5 Estimated GFR 24 POC Glucose 77 Random Glucose 86 Calcium 7.8 L Troponin I High Sens 03/20/21 03/20/21 13:01 16:20 MCV MCH MCHC RDW Plt Count MPV Immature Gran % (Auto) Neut % (Auto) Lymph % (Auto) [place] % (Auto) Eos % (Auto) Baso % (Auto) Lymph # (Auto) [place] # (Auto) Eos # (Auto) Baso # (Auto) Abs Immat Gran (auto) Absolute Neuts (auto) Absolute Nucleated RBC Nucleated RBC % (auto) Anion Gap Estim Creat Clear Calc Estimated GFR POC Glucose 95 117 H Random Glucose Calcium Troponin I High Sens Microbiology Microbiology Results: Microbiology 03/19/21 14:26 Blood Culture - Preliminary Blood - Venous No growth after 24 hours. Assessment and Plan (1) CHF (congestive heart failure): Status: Acute (2) Edema: Status: Acute (3) Essential hypertension: Status: Acute Assessment and Plan: 80-year-old female with a past medical history of hypertension, hyperlipidemia, diabetes, CAD, CHF, CKD, guided stenosis, hypothyroidism, pulmonary nodule, RAISA, paroxysmal AFib -not on anticoagulation, history of thyroid cancer status post thyroidectomy, anemia, COPD, GERD presented to the hospital today with a chief complaint of shortness of breath/generalized weakness/vomiting. 1.Acute CHF exacerbation: Echocardiogram from December 2019 showed EF greater than 70%, inferior segment hypokinetic, no valvular pathology. question diastolic dysfunction secondary to hypertension; IV Lasix repeat echo 2.HTN Continue outpatient therapies 3.Liver cirrhosis: Stable/Chronic. Follow labs 4. Acute on chronic CKD Follow response to albumin IV lasix Follow Creat/divalents 5. Hypothyroidism Off meds...TSH elevated Restart meds...follow TSH DVT prophylaxis: Subcu heparin Code status: Full code Quality Stroke Does the patient have a stroke diagnosis?: No VTE Prior VTE?: No VTE Risk Level:: Medical - moderate - high VTE Device Contraindication: Treatment Not Indicated VTE Drug Contraindication: N/A - Med Ordered
[2021-03-20] MEDS: Atorvastatin Calcium 80 MG TABLET PO (20:39)
[2021-03-20 20:45] LABS: Glucose, Whole Blood 148 mg/dL (60-115)
[2021-03-21] VITALS (7 sets, daily range): BP systolic 115–198; BP diastolic 72–87; PULSE 67–81; RESP 17–24; TEMP 35.8–36.4; O2SAT 98–99
--- NOTE | 2021-03-21 02:00 | PC.NURSE ---
Assisted pt to bedside commode Output: 300 cc pale yellow urine Pt assisted back on bed Pt toelrated well Will continue to monitor
[2021-03-21] MEDS: Omeprazole 20 MG CAPSULE.DR PO ×2 (06:32→16:38)
[2021-03-21] MEDS: Levothyroxine Sodium 75 MCG TABLET PO (06:32)
[2021-03-21 06:53] LABS: MANUAL DIFF FLAG NO
[2021-03-21 06:57] LABS: Basophils Percent Auto 0.4 % (0-2); Eosinophils Absolute Auto 0.1 X10*3/uL (0.0-0.4); Eosinophils Percent Auto 2.6 % (0-4); Hematocrit 24.4 % (37.0-47.0); Hemoglobin 8.1 g/dl (12.0-16.0); Imm Gran Abs Auto 0.02 X10*3/uL (0.00-0.03); Imm Gran Pct Auto 0.4 % (0.0-0.4); Lymphocytes Percent Auto 20.7 % (20-40); Mean Corpuscular HGB Conc 33.2 g/dl (31.0-35.0); Mean Corpuscular Hemoglobin 29.5 pg (27.0-33.0); Mean Corpuscular Volume 88.7 fL (80.0-98.0); Mean Platelet Volume 9.8 fL (9.4-12.3); Monocytes Absolute Auto 0.4 X10*3/uL (0.1-1.2); Monocytes Percent Auto 7.7 % (2-11); Neutrophils Absolute Auto 3.2 x10*3/uL (2.0-8.3); Neutrophils Percent Auto 68.2 % (45-73); Platelet Count 255 X10*3/uL (160-400); Red Blood Count 2.75 X10*6/uL (4.20-5.50); Red Cell Distribution Width 14.6 % (11.0-16.0); White Blood Count 4.7 X10*3/uL (4.8-10.8)
[2021-03-21 07:21] LABS: Alanine Aminotransferase 17 U/L (0-31); Albumin Level 1.9 g/dL (3.5-5.0); Alkaline Phosphatase 78 U/L (39-117); Anion Gap 8 (12-20); Aspartate Amino Transferase 30 U/L (5-31); Bilirubin Total 0.6 mg/dL (0.0-1.0); Blood Urea Nitrogen 15 mg/dL (9-16); Calcium 7.6 mg/dL (8.4-10.2); Carbon Dioxide 26 mmol/L (22-29); Chloride 112 mmol/L (96-108); Creatinine Clr Calc Pharmacy 19.5; Estimated Glomerular Filt Rate 22; Glucose Fasting 81 mg/dL (60-99); Potassium 3.3 mmol/L (3.3-5.1); Sodium 143 mmol/L (135-145); Total Protein 3.4 g/dL (6.5-8.0)
[2021-03-21 08:45] LABS: Glucose, Whole Blood 104 mg/dL (60-115)
--- NOTE | 2021-03-21 09:20 | PC.NURSE ---
Received verbal order from MD Germain in relation to morning BP 115/74, to hold all HTN medication with exception of lasix and coreg.
[2021-03-21] MEDS: Cholecalciferol (Vitamin D3) 25 MCG TABLET 50 MCG PO (09:26)
[2021-03-21] MEDS: Ferrous Sulfate 324 MG TABLET.DR PO ×2 (09:27→20:56)
[2021-03-21] MEDS: Heparin Sodium,Porcine 5,000 UNIT/ML VIAL 5000 UNIT SUBCUT ×2 (09:27→20:55)
[2021-03-21] MEDS: carvediloL 6.25 MG TABLET PO ×2 (09:27→20:55)
[2021-03-21] MEDS: Furosemide 40 MG/4 ML VIAL IVPUSH (09:28)
--- NOTE | 2021-03-21 10:48 | PM.PNCARD ---
Subjective Subjective Date of Service: 03/21/21 Interval history: She states that she is feeling okay. No specific cardiac complaints at this time. Review of Systems Review of Systems Yes all other systems are reviewed and are negative Cardiovascular: Reports as per HPI, Reports no additional cardiovascular complaints, Denies acrocyanosis, Denies cool extremities, Denies painful fingertips, Denies chest pain, Denies chest pain at rest, Denies diaphoresis, Denies syncope, Denies irregular heart rhythm, Denies claudication, Denies leg edema, Denies lightheadedness, Denies palpitations and Reports dyspnea Respiratory: Reports dyspnea Denies syncope Endocrine: Denies palpitations Physical Exam Vital Signs: Last Vital Signs Temp 97.6 F 03/21/21 07:59 Pulse 81 03/21/21 07:59 Resp 24 H 03/21/21 07:59 BP 115/74 03/21/21 07:59 Pulse Ox 98 03/21/21 07:59 BMI result Body Mass Index 30.9 Objective Labs and Meds Result diagrams: 03/21/21 05:56 03/21/21 05:56 Lab results: Laboratory Results - last 24 hr 03/20/21 03/20/21 03/20/21 13:01 16:20 20:38 WBC RBC Hgb Hct MCV MCH MCHC RDW Plt Count MPV Immature Gran % (Auto) Neut % (Auto) Lymph % (Auto) [place] % (Auto) Eos % (Auto) Baso % (Auto) Lymph # (Auto) [place] # (Auto) Eos # (Auto) Baso # (Auto) Abs Immat Gran (auto) Absolute Neuts (auto) Absolute Nucleated RBC Nucleated RBC % (auto) Sodium Potassium Chloride Carbon Dioxide Anion Gap BUN Creatinine Estim Creat Clear Calc Estimated GFR POC Glucose 95 117 H 148 H Fasting Glucose Calcium Total Bilirubin AST ALT Alkaline Phosphatase Total Protein Albumin 03/21/21 03/21/21 03/21/21 05:56 05:56 08:10 WBC 4.7 L RBC 2.75 L Hgb 8.1 L Hct 24.4 L MCV 88.7 MCH 29.5 MCHC 33.2 RDW 14.6 Plt Count 255 MPV 9.8 Immature Gran % (Auto) 0.4 Neut % (Auto) 68.2 Lymph % (Auto) 20.7 [place] % (Auto) 7.7 Eos % (Auto) 2.6 Baso % (Auto) 0.4 Lymph # (Auto) 1.0 L [place] # (Auto) 0.4 Eos # (Auto) 0.1 Baso # (Auto) 0.0 Abs Immat Gran (auto) 0.02 Absolute Neuts (auto) 3.2 Absolute Nucleated RBC 0.000 Nucleated RBC % (auto) 0.0 Sodium 143 Potassium 3.3 Chloride 112 H Carbon Dioxide 26 Anion Gap 8 L BUN 15 Creatinine 2.12 H Estim Creat Clear Calc 19.5 Estimated GFR 22 POC Glucose 104 Fasting Glucose 81 Calcium 7.6 L Total Bilirubin 0.6 AST 30 ALT 17 Alkaline Phosphatase 78 D Total Protein 3.4 L Albumin 1.9 L D Progress Note: A&P Assessment and plan (1) Acute diastolic (congestive) heart failure: Status: Acute (2) Hypertensive emergency: Status: Acute Assessment and Plan: Last office note from our nurse practitioner reviewed. Based on this, she has a history of RCA PCI in 2006. She also has a history of paroxysmal atrial fibrillation but very brief and only for 6 hours during an admission for 2019 and hence not on anticoagulation; also due to chronic anemia. Additionally, carotid stenosis, being followed by ultrasound; moderately severe obstructive sleep apnea on CPAP but unknown compliance. High sensitivity troponins this time are on the higher side at 43, 42, 50. Cardiac BNP is 646 and a prior value from December was 218. CT chest reported to have moderate left and small right pleural effusions. Coronary/aortic valve calcification. Abdomen pelvis CT reported to have cirrhosis; moderate ascites and severe atherosclerotic disease. Echocardiogram as today with LVEF 59%; basal inferior hypokinesis; mild aortic stenosis and mild mitral regurgitation with moderate pulmonary hypertension. Overall, without any clear history difficult to say what the main issue is. Could be multifactorial. Blood pressures were in the 200s upon arrival but seems much improved now. That could lead to diastolic heart failure. Additionally question of cirrhosis could also lead to ascites and generalized volume overload. She also has chronic kidney disease which plays a role. Additionally chronic anemia does not help either. Today's blood pressure seems to be back to normal which may be because of getting her usual medication - hence noncompliance possibly plays a role in high blood pressure. We need to sort out her social issues and how her medications have been administered extra. Also as the blood pressure is actually in the lower side today, we may have to cut back on some of them and probably just start with the beta-anita and diuretic. Hold off on hydralazine/amlodipine at least for the time being to avoid any profound hypotension. Discussed with Dr. Wilder. Fall Risk Details Current Medications: Current Medications Al Hydroxide/Mg Hydroxide (Magnesium Hydrox/Alum Hydrox 30 Ml Oral.Susp) 30 ml PO Q4H PRN PRN Reason: GI Upset Last Admin: 03/20/21 15:49 Dose: 30 ml Documented by: Albuterol Sulfate (Albuterol Sulfate 90 Mcg 8 Gm Inhaler) 2 puff INHALE RQ4H [facility] Last Admin: 03/21/21 08:56 Dose: Not Given Documented by: Amlodipine Besylate (Amlodipine Besylate 10 Mg Tablet) 10 mg PO DAILY [facility]; Protocol Last Admin: 03/21/21 09:33 Dose: Not Given Documented by: Atorvastatin Calcium (Atorvastatin Calcium 80 Mg Tablet) 80 mg PO BEDTIME [facility] Last Admin: 03/20/21 20:39 Dose: 80 mg Documented by: Carvedilol (Carvedilol 6.25 Mg Tablet) 6.25 mg PO BID [facility]; Protocol Last Admin: 03/21/21 09:27 Dose: 6.25 mg Documented by: Dextrose (Dextrose 50 % 25 Gm/50 Ml Vial) 25 gm IVPUSH Q15M PRN; Protocol PRN Reason: per Hypoglycemia Standing Ord. Doxazosin Mesylate (Doxazosin Mesylate 2 Mg Tablet) 12 mg PO DAILY [facility]; Protocol Last Admin: 03/21/21 09:34 Dose: Not Given Documented by: Ferrous Sulfate (Ferrous Sulfate 324 Mg Tablet.) 324 mg PO BID [facility] Last Admin: 03/21/21 09:27 Dose: 324 mg Documented by: Furosemide (Furosemide 40 Mg/4 Ml Vial) 40 mg IVPUSH DAILY [facility]; Protocol Last Admin: 03/21/21 09:28 Dose: 40 mg Documented by: Glucose (Glucose Gel 15 Gm Gel..Gram.) 15 gm PO Q15M PRN; Protocol PRN Reason: per Hypoglycemia Standing Ord. Heparin Sodium (Porcine) (Heparin Sodium,Porcine 5,000 Unit/Ml Vial) 5,000 unit SUBCUT Q12H [facility] Last Admin: 03/21/21 09:27 Dose: 5,000 unit Documented by: Hydralazine HCl (Hydralazine Hcl 50 Mg Tablet) 100 mg PO TID [facility]; Protocol Last Admin: 03/21/21 09:34 Dose: Not Given Documented by: Insulin Human Lispro (Insulin Lispro 100 Unit/Ml 3 Ml Vial) 0 unit SUBCUT QIDACHS [facility]; Protocol Last Admin: 03/21/21 08:17 Dose: Not Given Documented by: Isosorbide Mononitrate (Isosorbide Mononitrate 60 Mg Tab.Er.24h) 120 mg PO DAILY [facility]; Protocol Last Admin: 03/21/21 09:34 Dose: Not Given Documented by: Levothyroxine Sodium (Levothyroxine Sodium 75 Mcg Tablet) 75 mcg PO DAILY@0600 [facility] Last Admin: 03/21/21 06:32 Dose: 75 mcg Documented by: Melatonin (Melatonin 3 Mg Tablet) 6 mg PO BEDTIME PRN PRN Reason: Insomnia Last Admin: 03/20/21 00:11 Dose: 6 mg Documented by: Omeprazole (Omeprazole 20 Mg Capsule.) 20 mg PO BID@0630,1630 [facility] Last Admin: 03/21/21 06:32 Dose: 20 mg Documented by: Pharmacy Consult (Consult Rx Perform Med Rec) 1 each MISCELLANE ONCE PRN PRN Reason: Consult order Senna (Sennosides 8.6 Mg Tablet) 17.2 mg PO BEDTIME PRN PRN Reason: Constipation Sodium Chloride (0.9 % Sodium Chloride Flush 3 Ml Syringe) 3 ml IVFLUSH QSHIFT [facility] Last Admin: 03/21/21 08:18 Dose: Not Given Documented by: Vitamin D (Cholecalciferol (Vitamin D3) 25 Mcg Tablet) 50 mcg PO DAILY [facility] Last Admin: 03/21/21 09:26 Dose: 50 mcg Documented by: Time Spent With Patient Time: Total time spent is greater than 50% in coordination of care (as documented) at patient's floor/unit and/or counseling patient: Time with patient: less than 15 minutes Progress Note: Quality Stroke Does the patient have a stroke diagnosis?: No Procedures Date of Service Date of Service: 03/21/21
[2021-03-21 12:41] LABS: Glucose, Whole Blood 88 mg/dL (60-115)
--- NOTE | 2021-03-21 13:26 | HO.PM.IMPN ---
Subjective Subjective Date of Service: 03/21/21 Interval History: no acute issues overnight Review of Systems denies chest pain Denies shortness of breath Denies nausea vomiting diarrhea Physical Exam Vital Signs: Vital Signs: Last Vital Signs Temp 97.6 F 03/21/21 07:59 Pulse 81 03/21/21 07:59 Resp 24 H 03/21/21 07:59 BP 115/74 03/21/21 07:59 Pulse Ox 98 03/21/21 07:59 BMI result Body Mass Index 30.9 Objective Data Active Medications Al Hydroxide/Mg Hydroxide (Magnesium Hydrox/Alum Hydrox 30 Ml Oral.Susp) 30 ml PO Q4H PRN PRN Reason: GI Upset Last Admin: 03/20/21 15:49 Dose: 30 ml Documented by: DOROTA Albuterol Sulfate (Albuterol Sulfate 90 Mcg 8 Gm Inhaler) 2 puff INHALE RQ4H [facility] Last Admin: 03/21/21 12:14 Dose: Not Given Documented by: KENNEY Non-Admin Reason: Med Not Available Atorvastatin Calcium (Atorvastatin Calcium 80 Mg Tablet) 80 mg PO BEDTIME [facility] Last Admin: 03/20/21 20:39 Dose: 80 mg Documented by: DOROTA Carvedilol (Carvedilol 6.25 Mg Tablet) 6.25 mg PO BID [facility]; Protocol Last Admin: 03/21/21 09:27 Dose: 6.25 mg Documented by: HANK Dextrose (Dextrose 50 % 25 Gm/50 Ml Vial) 25 gm IVPUSH Q15M PRN; Protocol PRN Reason: per Hypoglycemia Standing Ord. Doxazosin Mesylate (Doxazosin Mesylate 2 Mg Tablet) 12 mg PO DAILY [facility]; Protocol Last Admin: 03/21/21 09:34 Dose: Not Given Documented by: HANK Non-Admin Reason: Physician Approved Ferrous Sulfate (Ferrous Sulfate 324 Mg Tablet.Dr) 324 mg PO BID [facility] Last Admin: 03/21/21 09:27 Dose: 324 mg Documented by: HANK Furosemide (Furosemide 40 Mg/4 Ml Vial) 40 mg IVPUSH DAILY [facility]; Protocol Last Admin: 03/21/21 09:28 Dose: 40 mg Documented by: HANK Glucose (Glucose Gel 15 Gm Gel..Gram.) 15 gm PO Q15M PRN; Protocol PRN Reason: per Hypoglycemia Standing Ord. Heparin Sodium (Porcine) (Heparin Sodium,Porcine 5,000 Unit/Ml Vial) 5,000 unit SUBCUT Q12H [facility] Last Admin: 03/21/21 09:27 Dose: 5,000 unit Documented by: HANK Hydralazine HCl (Hydralazine Hcl 50 Mg Tablet) 100 mg PO TID [facility]; Protocol Last Admin: 03/21/21 09:34 Dose: Not Given Documented by: HANK Non-Admin Reason: Physician Approved Insulin Human Lispro (Insulin Lispro 100 Unit/Ml 3 Ml Vial) 0 unit SUBCUT QIDACHS [facility]; Protocol Last Admin: 03/21/21 08:17 Dose: Not Given Documented by: HANK Non-Abelardo Reason: No Insulin Coverage Comments: B/S 104 Isosorbide Mononitrate (Isosorbide Mononitrate 60 Mg Tab.Er.24h) 120 mg PO DAILY [facility]; Protocol Last Admin: 03/21/21 09:34 Dose: Not Given Documented by: HANK Non-Admin Reason: Physician Approved Levothyroxine Sodium (Levothyroxine Sodium 75 Mcg Tablet) 75 mcg PO DAILY@0600 [facility] Last Admin: 03/21/21 06:32 Dose: 75 mcg Documented by: BRADY Melatonin (Melatonin 3 Mg Tablet) 6 mg PO BEDTIME PRN PRN Reason: Insomnia Last Admin: 03/20/21 00:11 Dose: 6 mg Documented by: MADAI Omeprazole (Omeprazole 20 Mg [place].) 20 mg PO BID@0630,1630 [facility] Last Admin: 03/21/21 06:32 Dose: 20 mg Documented by: BRADY Pharmacy Consult (Consult Rx Perform Med Rec) 1 each MISCELLANE ONCE PRN PRN Reason: Consult order Senna (Sennosides 8.6 Mg Tablet) 17.2 mg PO BEDTIME PRN PRN Reason: Constipation Sodium Chloride (0.9 % Sodium Chloride Flush 3 Ml Syringe) 3 ml IVFLUSH QSHIFT [facility] Last Admin: 03/21/21 08:18 Dose: Not Given Documented by: HANK Non-Admin Reason: Med Not Available Vitamin D (Cholecalciferol (Vitamin D3) 25 Mcg Tablet) 50 mcg PO DAILY [facility] Last Admin: 03/21/21 09:26 Dose: 50 mcg Documented by: HANK Labs CBC & Chem 7: 03/21/21 05:56 03/21/21 05:56 Labs: Laboratory Results - last 24 hr 03/20/21 03/20/21 03/20/21 13:01 16:20 20:38 MCV MCH MCHC RDW Plt Count MPV Immature Gran % (Auto) Neut % (Auto) Lymph % (Auto) [place] % (Auto) Eos % (Auto) Baso % (Auto) Lymph # (Auto) [place] # (Auto) Eos # (Auto) Baso # (Auto) Abs Immat Gran (auto) Absolute Neuts (auto) Absolute Nucleated RBC Nucleated RBC % (auto) Anion Gap Estim Creat Clear Calc Estimated GFR POC Glucose 95 117 H 148 H Fasting Glucose Calcium Total Bilirubin AST ALT Alkaline Phosphatase Total Protein Albumin 03/21/21 03/21/21 03/21/21 05:56 05:56 08:10 MCV 88.7 MCH 29.5 MCHC 33.2 RDW 14.6 Plt Count 255 MPV 9.8 Immature Gran % (Auto) 0.4 Neut % (Auto) 68.2 Lymph % (Auto) 20.7 [place] % (Auto) 7.7 Eos % (Auto) 2.6 Baso % (Auto) 0.4 Lymph # (Auto) 1.0 L [place] # (Auto) 0.4 Eos # (Auto) 0.1 Baso # (Auto) 0.0 Abs Immat Gran (auto) 0.02 Absolute Neuts (auto) 3.2 Absolute Nucleated RBC 0.000 Nucleated RBC % (auto) 0.0 Anion Gap 8 L Estim Creat Clear Calc 19.5 Estimated GFR 22 POC Glucose 104 Fasting Glucose 81 Calcium 7.6 L Total Bilirubin 0.6 AST 30 ALT 17 Alkaline Phosphatase 78 D Total Protein 3.4 L Albumin 1.9 L D 03/21/21 12:23 MCV MCH MCHC RDW Plt Count MPV Immature Gran % (Auto) Neut % (Auto) Lymph % (Auto) [place] % (Auto) Eos % (Auto) Baso % (Auto) Lymph # (Auto) [place] # (Auto) Eos # (Auto) Baso # (Auto) Abs Immat Gran (auto) Absolute Neuts (auto) Absolute Nucleated RBC Nucleated RBC % (auto) Anion Gap Estim Creat Clear Calc Estimated GFR POC Glucose 88 Fasting Glucose Calcium Total Bilirubin AST ALT Alkaline Phosphatase Total Protein Albumin Microbiology Microbiology Results: Microbiology 03/19/21 16:06 Blood Culture - Preliminary Blood - Venous No growth after 24 hours. 03/19/21 14:26 Blood Culture - Preliminary Blood - Venous No growth after 24 hours. Assessment and Plan (1) CHF (congestive heart failure): Status: Acute (2) Post-surgical hypothyroidism: Status: Acute Assessment and Plan: 80-year-old female with a past medical history of hypertension, hyperlipidemia, diabetes, CAD, CHF, CKD, guided stenosis, hypothyroidism, pulmonary nodule, RAISA, paroxysmal AFib -not on anticoagulation, history of thyroid cancer status post thyroidectomy, anemia, COPD, GERD presented to the hospital today with a chief complaint of shortness of breath/generalized weakness/vomiting. 1.Acute CHF exacerbation: Echocardiogram from December 2019 showed EF greater than 70%, inferior segment hypokinetic, no valvular pathology. Improving. Meds adjusted as per Cards. Presentation likely secondary to non-compliance 2.HTN Amlodipine D/c'd .Non compliant; trying to avoid hypotension 3.Liver cirrhosis: Stable/Chronic. Follow labs 4. Acute on chronic CKD Follow response to albumin IV lasix Follow Creat/divalents 5. Hypothyroidism Off meds...TSH elevated..expected s/p thyroidectomy Restart meds...follow TSH DVT prophylaxis: Subcu heparin Code status: Full code Quality Stroke Does the patient have a stroke diagnosis?: No VTE Prior VTE?: No VTE Risk Level:: Medical - moderate - high VTE Device Contraindication: Treatment Not Indicated VTE Drug Contraindication: N/A - Med Ordered
[2021-03-21 14:08] LABS: Thyroid Stimulating Hormone 29.49 uIU/mL (0.32-4.0)
[2021-03-21 16:24] LABS: Glucose, Whole Blood 89 mg/dL (60-115)
[2021-03-21] MEDS: 0.9 % Sodium Chloride Flush 3 ML SYRINGE IVFLUSH ×2 (16:38→20:56)
[2021-03-21] MEDS: hydrALAZINE HCl 50 MG TABLET 100 MG PO ×2 (16:38→20:56)
[2021-03-21 20:37] LABS: Glucose, Whole Blood 129 mg/dL (60-115)
[2021-03-21] MEDS: Atorvastatin Calcium 80 MG TABLET PO (20:55)
[2021-03-22] VITALS (11 sets, daily range): BP systolic 85–195; BP diastolic 41–88; PULSE 77–82; RESP 18–20; TEMP 35.6–36.4; O2SAT 94–99
[2021-03-22] MEDS: Omeprazole 20 MG CAPSULE.DR PO ×2 (05:44→16:07)
[2021-03-22] MEDS: Levothyroxine Sodium 75 MCG TABLET PO (05:44)
[2021-03-22 05:52] LABS: MANUAL DIFF FLAG NO
[2021-03-22 06:00] LABS: Basophils Percent Auto 0.4 % (0-2); Eosinophils Absolute Auto 0.1 X10*3/uL (0.0-0.4); Eosinophils Percent Auto 1.9 % (0-4); Hematocrit 26.8 % (37.0-47.0); Hemoglobin 8.6 g/dl (12.0-16.0); Imm Gran Abs Auto 0.01 X10*3/uL (0.00-0.03); Imm Gran Pct Auto 0.2 % (0.0-0.4); Lymphocytes Absolute Auto 1.3 X10*3/uL (1.2-4.9); Lymphocytes Percent Auto 26.2 % (20-40); Mean Corpuscular HGB Conc 32.1 g/dl (31.0-35.0); Mean Corpuscular Hemoglobin 29.1 pg (27.0-33.0); Mean Corpuscular Volume 90.5 fL (80.0-98.0); Mean Platelet Volume 9.8 fL (9.4-12.3); Monocytes Absolute Auto 0.4 X10*3/uL (0.1-1.2); Monocytes Percent Auto 7.7 % (2-11); Neutrophils Percent Auto 63.6 % (45-73); Platelet Count 285 X10*3/uL (160-400); Red Blood Count 2.96 X10*6/uL (4.20-5.50); Red Cell Distribution Width 14.5 % (11.0-16.0); White Blood Count 4.8 X10*3/uL (4.8-10.8)
[2021-03-22 06:30] LABS: Alanine Aminotransferase 21 U/L (0-31); Albumin Level 1.9 g/dL (3.5-5.0); Alkaline Phosphatase 96 U/L (39-117); Anion Gap 9 (12-20); Aspartate Amino Transferase 35 U/L (5-31); Bilirubin Total 0.5 mg/dL (0.0-1.0); Blood Urea Nitrogen 16 mg/dL (9-16); Calcium 7.8 mg/dL (8.4-10.2); Carbon Dioxide 28 mmol/L (22-29); Chloride 109 mmol/L (96-108); Creatinine Clr Calc Pharmacy 18.3; Estimated Glomerular Filt Rate 21; Glucose Fasting 92 mg/dL (60-99); Potassium 3.7 mmol/L (3.3-5.1); Sodium 142 mmol/L (135-145); Total Protein 3.6 g/dL (6.5-8.0)
[2021-03-22] MEDS: Cholecalciferol (Vitamin D3) 25 MCG TABLET 50 MCG PO (07:37)
[2021-03-22] MEDS: Isosorbide Mononitrate 60 MG TAB.ER.24H 120 MG PO (07:37)
[2021-03-22] MEDS: Doxazosin Mesylate 2 MG TABLET 12 MG PO (07:38)
[2021-03-22] MEDS: hydrALAZINE HCl 50 MG TABLET 100 MG PO ×3 (07:38→20:29)
[2021-03-22] MEDS: carvediloL 6.25 MG TABLET PO ×2 (07:39→20:29)
[2021-03-22] MEDS: Furosemide 40 MG/4 ML VIAL IVPUSH (07:39)
[2021-03-22] MEDS: Ferrous Sulfate 324 MG TABLET.DR PO ×2 (07:39→20:29)
[2021-03-22] MEDS: Heparin Sodium,Porcine 5,000 UNIT/ML VIAL 5000 UNIT SUBCUT ×2 (07:40→20:29)
[2021-03-22] MEDS: 0.9 % Sodium Chloride Flush 3 ML SYRINGE IVFLUSH ×3 (07:57→20:31)
[2021-03-22 08:05] LABS: Glucose, Whole Blood 92 mg/dL (60-115)
--- NOTE | 2021-03-22 11:45 | HO.PM.IMPN ---
Subjective Subjective Date of Service: 03/22/21 Interval History: the patient was seen and evaluated this morning Laying in bed, feels Tired and out of energy Complaining of generalized weakness and shortness of breath Denies any fever, chills or chest pain No reported other overnight events. Systemic review: No fever, chills but increased weakness No chest pain, palpitation dyspnea with minimal exertion, coughing No abdominal pain, nausea or vomiting No urinary symptoms No any rash or wounds Physical Exam Vital Signs: Vital Signs: Last Vital Signs Temp 96.0 F L 03/22/21 07:16 Pulse 80 03/22/21 10:32 Resp 18 03/22/21 07:16 BP 85/41 L 03/22/21 10:32 Pulse Ox 98 03/22/21 07:16 BMI result Body Mass Index 30.9 Const: Other: Constitutional : Alert, oriented, not in distress, overall weakness Neck : Normal inspection, Supple Cardiovascular : RRR, S1 S2, trace bilateral lower extremity edema Respiratory : fair bilateral air entry, basal fine crackles, wheezes or rhonchi Gastrointestinal: soft, lax, Normal bowel sounds, Non tender Skin : Warm, Dry Neurological : Alert & oriented x3, No focal deficit Objective Data Active Medications Al Hydroxide/Mg Hydroxide (Magnesium Hydrox/Alum Hydrox 30 Ml Oral.Susp) 30 ml PO Q4H PRN PRN Reason: GI Upset Last Admin: 03/20/21 15:49 Dose: 30 ml Documented by: DOROTA Albuterol Sulfate (Albuterol Sulfate 90 Mcg 8 Gm Inhaler) 2 puff INHALE RQ4H [facility] Last Admin: 03/22/21 11:28 Dose: Not Given Documented by: KENNEY Non-Admin Reason: Med Not Available Amlodipine Besylate (Amlodipine Besylate 10 Mg Tablet) 10 mg PO DAILY [facility]; Protocol Last Admin: 03/22/21 10:32 Dose: Not Given Documented by: JOSE MARTIN Non-Admin Reason: Decreased Blood Pressure Atorvastatin Calcium (Atorvastatin Calcium 80 Mg Tablet) 80 mg PO BEDTIME [facility] Last Admin: 03/21/21 20:55 Dose: 80 mg Documented by: ARNAUD Carvedilol (Carvedilol 6.25 Mg Tablet) 6.25 mg PO BID [facility]; Protocol Last Admin: 03/22/21 07:39 Dose: 6.25 mg Documented by: JOSE MARTIN Dextrose (Dextrose 50 % 25 Gm/50 Ml Vial) 25 gm IVPUSH Q15M PRN; Protocol PRN Reason: per Hypoglycemia Standing Ord. Doxazosin Mesylate (Doxazosin Mesylate 2 Mg Tablet) 12 mg PO DAILY [facility]; Protocol Last Admin: 03/22/21 07:38 Dose: 12 mg Documented by: JOSE MARTIN Ferrous Sulfate (Ferrous Sulfate 324 Mg Tablet.) 324 mg PO BID [facility] Last Admin: 03/22/21 07:39 Dose: 324 mg Documented by: JOSE MARTIN Furosemide (Furosemide 40 Mg/4 Ml Vial) 40 mg IVPUSH DAILY [facility]; Protocol Last Admin: 03/22/21 07:39 Dose: 40 mg Documented by: JOSE MARTIN Glucose (Glucose Gel 15 Gm Gel..Gram.) 15 gm PO Q15M PRN; Protocol PRN Reason: per Hypoglycemia Standing Ord. Heparin Sodium (Porcine) (Heparin Sodium,Porcine 5,000 Unit/Ml Vial) 5,000 unit SUBCUT Q12H [facility] Last Admin: 03/22/21 07:40 Dose: 5,000 unit Documented by: JOSE MARTIN Hydralazine HCl (Hydralazine Hcl 50 Mg Tablet) 100 mg PO TID [facility]; Protocol Last Admin: 03/22/21 07:38 Dose: 100 mg Documented by: JOSE MARTIN Insulin Human Lispro (Insulin Lispro 100 Unit/Ml 3 Ml Vial) 0 unit SUBCUT QIDACHS [facility]; Protocol Last Admin: 03/22/21 08:12 Dose: Not Given Documented by: JOSE MARTIN Non-Admin Reason: No Insulin Coverage Isosorbide Mononitrate (Isosorbide Mononitrate 60 Mg Tab.Er.24h) 120 mg PO DAILY [facility]; Protocol Last Admin: 03/22/21 07:37 Dose: 120 mg Documented by: JOSE MARTIN Levothyroxine Sodium (Levothyroxine Sodium 100 Mcg Tablet) 100 mcg PO DAILY@0600 [facility] Melatonin (Melatonin 3 Mg Tablet) 6 mg PO BEDTIME PRN PRN Reason: Insomnia Last Admin: 03/20/21 00:11 Dose: 6 mg Documented by: MADAI Omeprazole (Omeprazole 20 Mg Capsule.) 20 mg PO BID@0630,1630 [facility] Last Admin: 03/22/21 05:44 Dose: 20 mg Documented by: ARNAUD Pharmacy Consult (Consult Rx Perform Med Rec) 1 each MISCELLANE ONCE PRN PRN Reason: Consult order Senna (Sennosides 8.6 Mg Tablet) 17.2 mg PO BEDTIME PRN PRN Reason: Constipation Sodium Chloride (0.9 % Sodium Chloride Flush 3 Ml Syringe) 3 ml IVFLUSH QSHIFT [facility] Last Admin: 03/22/21 07:57 Dose: 3 ml Documented by: JOSE MARTIN Vitamin D (Cholecalciferol (Vitamin D3) 25 Mcg Tablet) 50 mcg PO DAILY [facility] Last Admin: 03/22/21 07:37 Dose: 50 mcg Documented by: JOSE MARTIN Labs CBC & Chem 7: 03/22/21 05:36 03/22/21 05:36 Labs: Laboratory Results - last 24 hr 03/21/21 03/21/21 03/21/21 05:56 12:23 16:15 MCV MCH MCHC RDW Plt Count MPV Immature Gran % (Auto) Neut % (Auto) Lymph % (Auto) [place] % (Auto) Eos % (Auto) Baso % (Auto) Lymph # (Auto) [place] # (Auto) Eos # (Auto) Baso # (Auto) Abs Immat Gran (auto) Absolute Neuts (auto) Absolute Nucleated RBC Nucleated RBC % (auto) Anion Gap Estim Creat Clear Calc Estimated GFR POC Glucose 88 89 Fasting Glucose Calcium Total Bilirubin AST ALT Alkaline Phosphatase Total Protein Albumin TSH 29.49 H 03/21/21 03/22/21 03/22/21 20:26 05:36 05:36 MCV 90.5 MCH 29.1 MCHC 32.1 RDW 14.5 Plt Count 285 MPV 9.8 Immature Gran % (Auto) 0.2 Neut % (Auto) 63.6 Lymph % (Auto) 26.2 [place] % (Auto) 7.7 Eos % (Auto) 1.9 Baso % (Auto) 0.4 Lymph # (Auto) 1.3 [place] # (Auto) 0.4 Eos # (Auto) 0.1 Baso # (Auto) 0.0 Abs Immat Gran (auto) 0.01 Absolute Neuts (auto) 3.0 Absolute Nucleated RBC 0.000 Nucleated RBC % (auto) 0.0 Anion Gap 9 L Estim Creat Clear Calc 18.3 Estimated GFR 21 POC Glucose 129 H Fasting Glucose 92 Calcium 7.8 L Total Bilirubin 0.5 AST 35 H ALT 21 Alkaline Phosphatase 96 D Total Protein 3.6 L Albumin 1.9 L TSH 03/22/21 07:59 MCV MCH MCHC RDW Plt Count MPV Immature Gran % (Auto) Neut % (Auto) Lymph % (Auto) [place] % (Auto) Eos % (Auto) Baso % (Auto) Lymph # (Auto) [place] # (Auto) Eos # (Auto) Baso # (Auto) Abs Immat Gran (auto) Absolute Neuts (auto) Absolute Nucleated RBC Nucleated RBC % (auto) Anion Gap Estim Creat Clear Calc Estimated GFR POC Glucose 92 Fasting Glucose Calcium Total Bilirubin AST ALT Alkaline Phosphatase Total Protein Albumin TSH Microbiology Microbiology Results: Microbiology 03/19/21 16:06 Blood Culture - Preliminary Blood - Venous No growth after 48 hours. 03/19/21 14:26 Blood Culture - Preliminary Blood - Venous No growth after 48 hours. Assessment and Plan (1) Acute diastolic (congestive) heart failure: Status: Acute (2) Hypertensive emergency: Status: Acute Assessment and Plan: 80-year-old female with a past medical history of hypertension, hyperlipidemia, diabetes, CAD, CHF, CKD, guided stenosis, hypothyroidism, pulmonary nodule, RAISA, paroxysmal AFib -not on anticoagulation, history of thyroid cancer status post thyroidectomy, anemia, COPD, GERD presented to the hospital today with a chief complaint of shortness of breath/generalized weakness/vomiting. 1.Acute CHF exacerbation: Echocardiogram from December 2019 showed EF greater than 70%, inferior segment hypokinetic, no valvular pathology. Improving. Meds adjusted as per Cards. Presentation likely secondary to non-compliance 2. uncontrolled HTN secondary to adherence problem hypotensive this morning after receiving hold his home medications Hold amlodipine for the time being and monitor blood pressure 3.Liver cirrhosis: Stable/Chronic. Follow labs Has significant low albumin level, will need additional advised add Ensure 4. Acute on chronic CKD Creatinine continue to worsen with no clear response to albumin continue IV lasix Follow Creat/divalents 5. Hypothyroidism unclear if she was Off meds TSH elevated..expected s/p thyroidectomy Restart meds, levothyroxine dose increased to 100 for now DVT prophylaxis: Subcu heparin Code status: Full code Quality Stroke Does the patient have a stroke diagnosis?: No VTE Prior VTE?: No VTE Risk Level:: Medical - moderate - high VTE Device Contraindication: Treatment Not Indicated VTE Drug Contraindication: N/A - Med Ordered
[2021-03-22 12:18] LABS: Glucose, Whole Blood 177 mg/dL (60-115)
--- NOTE | 2021-03-22 12:24 | MHC.CLN ---
NUTRITION ADDED THERAPEUTIC CARDIAC DIET AND DECREASED DIABETIC KCALS. CHANGED SUPPLEMENT DUE TO DX DM. DIET=DIABETIC 1800 KCAL, CARDIAC, GLUCERNA TID. GLUCERNA PROVIDES 710 KCAL, 30 G PROTEIN.
--- NOTE | 2021-03-22 12:35 | MHC.CM.PN ---
PER REVIEW OF PROGRESS NOTE, PATIENT IS NOT CLINICALLY STABLE FOR DISCHARGE. BERNARD ARGUETA IS FOLLOWING FOR A BED OFFER. FACILITY UPDATED IN [facility]
[2021-03-22] MEDS: Insulin Lispro 100 UNIT/ML 3 ML VIAL SUBCUT (12:43)
--- NOTE | 2021-03-22 14:26 | PC.NURSE ---
Pt alert and oriented x3. pt c/O wgen weakness with ambulation. pt ambulates with 1 assist and a wlker. Pt also c/O dizziness and ANBD pain.This am BP was high in the 190s. BP medications given with good effect. Mid BP was in the lower 80s. Amlodipine held due top low BP.
[2021-03-22 16:03] LABS: Glucose, Whole Blood 81 mg/dL (60-115)
--- NOTE | 2021-03-22 18:04 | PC.NURSE ---
Pt alert and oriented x3. Pt C/O ABD pain. Pt continues on IV Lasix for CHF exacerbation. Pt is Normal sinus rythym on tele with Hr in the 70s. Pt has Anarsarca edema. pt is weak and ambulates with 1 assist and a walker.
[2021-03-22 19:36] LABS: Glucose, Whole Blood 101 mg/dL (60-115)
[2021-03-22] MEDS: Atorvastatin Calcium 80 MG TABLET PO (20:29)
[2021-03-23] VITALS (12 sets, daily range): BP systolic 103–168; BP diastolic 49–91; PULSE 78–89; RESP 15–20; TEMP 36.3–37.4; O2SAT 96–98
[2021-03-23] MEDS: Omeprazole 20 MG CAPSULE.DR PO ×2 (05:26→17:00)
[2021-03-23] MEDS: Levothyroxine Sodium 100 MCG TABLET PO (05:26)
[2021-03-23 07:06] LABS: MANUAL DIFF FLAG NO
[2021-03-23 07:17] LABS: Basophils Percent Auto 0.2 % (0-2); Eosinophils Absolute Auto 0.1 X10*3/uL (0.0-0.4); Eosinophils Percent Auto 1.6 % (0-4); Hematocrit 25.2 % (37.0-47.0); Hemoglobin 8.2 g/dl (12.0-16.0); Imm Gran Abs Auto 0.03 X10*3/uL (0.00-0.03); Imm Gran Pct Auto 0.7 % (0.0-0.4); Lymphocytes Absolute Auto 1.1 X10*3/uL (1.2-4.9); Lymphocytes Percent Auto 25.9 % (20-40); Mean Corpuscular HGB Conc 32.5 g/dl (31.0-35.0); Mean Corpuscular Hemoglobin 29.3 pg (27.0-33.0); Mean Platelet Volume 10.4 fL (9.4-12.3); Monocytes Absolute Auto 0.3 X10*3/uL (0.1-1.2); Monocytes Percent Auto 7.2 % (2-11); Neutrophils Absolute Auto 2.8 x10*3/uL (2.0-8.3); Neutrophils Percent Auto 64.4 % (45-73); Platelet Count 249 X10*3/uL (160-400); Red Cell Distribution Width 14.5 % (11.0-16.0); White Blood Count 4.3 X10*3/uL (4.8-10.8)
[2021-03-23 07:34] LABS: Glucose, Whole Blood 77 mg/dL (60-115)
[2021-03-23 07:37] LABS: B Type Natriuretic Peptide 472 pg/mL (<100)
[2021-03-23 07:42] LABS: Anion Gap 9 (12-20); Blood Urea Nitrogen 18 mg/dL (9-16); Calcium 7.6 mg/dL (8.4-10.2); Carbon Dioxide 27 mmol/L (22-29); Chloride 109 mmol/L (96-108); Creatinine Clr Calc Pharmacy 17.3; Estimated Glomerular Filt Rate 20; Glucose Random 77 mg/dL (60-115); Sodium 141 mmol/L (135-145)
[2021-03-23 07:43] LABS: Alanine Aminotransferase 25 U/L (0-31); Albumin Level 1.8 g/dL (3.5-5.0); Alkaline Phosphatase 101 U/L (39-117); Anion Gap 9 (12-20); Aspartate Amino Transferase 41 U/L (5-31); Bilirubin Total 0.5 mg/dL (0.0-1.0); Blood Urea Nitrogen 18 mg/dL (9-16); Calcium 7.5 mg/dL (8.4-10.2); Carbon Dioxide 27 mmol/L (22-29); Chloride 109 mmol/L (96-108); Creatinine Clr Calc Pharmacy 17.3; Estimated Glomerular Filt Rate 20; Glucose Fasting 76 mg/dL (60-99); Potassium 3.9 mmol/L (3.3-5.1); Sodium 141 mmol/L (135-145); Total Protein 3.4 g/dL (6.5-8.0)
[2021-03-23 07:54] LABS: Thyroid Stimulating Hormone 26.58 uIU/mL (0.32-4.0)
[2021-03-23] MEDS: Ferrous Sulfate 324 MG TABLET.DR PO ×2 (08:25→20:17)
[2021-03-23] MEDS: Cholecalciferol (Vitamin D3) 25 MCG TABLET 50 MCG PO (08:25)
[2021-03-23] MEDS: Doxazosin Mesylate 2 MG TABLET 12 MG PO (08:25)
[2021-03-23] MEDS: carvediloL 6.25 MG TABLET PO ×2 (08:25→20:17)
[2021-03-23] MEDS: Isosorbide Mononitrate 60 MG TAB.ER.24H 120 MG PO (08:25)
[2021-03-23] MEDS: Furosemide 40 MG/4 ML VIAL IVPUSH (08:26)
[2021-03-23] MEDS: Heparin Sodium,Porcine 5,000 UNIT/ML VIAL 5000 UNIT SUBCUT ×2 (08:26→20:18)
[2021-03-23] MEDS: 0.9 % Sodium Chloride Flush 3 ML SYRINGE IVFLUSH ×3 (08:26→20:19)
[2021-03-23] MEDS: Albuterol Sulfate 90 MCG 8 GM INHALER 2 PUFF INHALE ×4 (09:20→20:24)
[2021-03-23 11:37] LABS: Glucose, Whole Blood 147 mg/dL (60-115)
--- NOTE | 2021-03-23 11:55 | HO.PM.IMPN ---
Subjective Subjective Date of Service: 03/23/21 Interval History: the patient was seen and evaluated this morning Laying in bed, feels little better today still having shortness of breath and dyspnea with exertion Denies any fever, chills or chest pain No reported other overnight events. Systemic review: No fever, chills but increased weakness No chest pain, palpitation dyspnea with minimal exertion, coughing No abdominal pain, nausea or vomiting No urinary symptoms No any rash or wounds Physical Exam Vital Signs: Vital Signs: Last Vital Signs Temp 99.3 F 03/23/21 11:30 Pulse 80 03/23/21 11:30 Resp 18 03/23/21 11:30 BP 123/49 L 03/23/21 11:30 Pulse Ox 97 03/23/21 11:30 BMI result Body Mass Index 30.9 Const: Other: Constitutional : Alert, oriented, not in distress, overall weakness Neck : Normal inspection, Supple Cardiovascular : RRR, S1 S2, trace bilateral lower extremity edema Respiratory : fair bilateral air entry, basal fine crackles, wheezes or rhonchi Gastrointestinal: soft, lax, Normal bowel sounds, Non tender Skin : Warm, Dry Neurological : Alert & oriented x3, No focal deficit Objective Data Active Medications Acetaminophen (Acetaminophen 325 Mg Tablet) 650 mg PO Q6H PRN PRN Reason: Pain, Mild (Pain Scale 1-3) Al Hydroxide/Mg Hydroxide (Magnesium Hydrox/Alum Hydrox 30 Ml Oral.Susp) 30 ml PO Q4H PRN PRN Reason: GI Upset Last Admin: 03/20/21 15:49 Dose: 30 ml Documented by: DOROTA Albuterol Sulfate (Albuterol Sulfate 90 Mcg 8 Gm Inhaler) 2 puff INHALE RQ4H [facility] Last Admin: 03/23/21 09:20 Dose: 2 puff Documented by: TERESA Amlodipine Besylate (Amlodipine Besylate 10 Mg Tablet) 10 mg PO DAILY [facility]; Protocol Last Admin: 03/22/21 10:32 Dose: Not Given Documented by: JOSE MARTIN Non-Admin Reason: Decreased Blood Pressure Atorvastatin Calcium (Atorvastatin Calcium 80 Mg Tablet) 80 mg PO BEDTIME [facility] Last Admin: 03/22/21 20:29 Dose: 80 mg Documented by: ARNAUD Carvedilol (Carvedilol 6.25 Mg Tablet) 6.25 mg PO BID [facility]; Protocol Last Admin: 03/23/21 08:25 Dose: 6.25 mg Documented by: CHANDA Dextrose (Dextrose 50 % 25 Gm/50 Ml Vial) 25 gm IVPUSH Q15M PRN; Protocol PRN Reason: per Hypoglycemia Standing Ord. Doxazosin Mesylate (Doxazosin Mesylate 2 Mg Tablet) 12 mg PO DAILY [facility]; Protocol Last Admin: 03/23/21 08:25 Dose: 12 mg Documented by: CHANDA Ferrous Sulfate (Ferrous Sulfate 324 Mg Tablet.Dr) 324 mg PO BID [facility] Last Admin: 03/23/21 08:25 Dose: 324 mg Documented by: CHANDA Furosemide (Furosemide 40 Mg/4 Ml Vial) 40 mg IVPUSH DAILY [facility]; Protocol Last Admin: 03/23/21 08:26 Dose: 40 mg Documented by: CHANDA Glucose (Glucose Gel 15 Gm Gel..Gram.) 15 gm PO Q15M PRN; Protocol PRN Reason: per Hypoglycemia Standing Ord. Heparin Sodium (Porcine) (Heparin Sodium,Porcine 5,000 Unit/Ml Vial) 5,000 unit SUBCUT Q12H [facility] Last Admin: 03/23/21 08:26 Dose: 5,000 unit Documented by: CHANDA Hydralazine HCl (Hydralazine Hcl 50 Mg Tablet) 100 mg PO TID [facility]; Protocol Last Admin: 03/22/21 20:29 Dose: 100 mg Documented by: ARNAUD Insulin Human Lispro (Insulin Lispro 100 Unit/Ml 3 Ml Vial) 0 unit SUBCUT QIDACHS [facility]; Protocol Last Admin: 03/23/21 11:51 Dose: Not Given Documented by: CHANDA Non-Admin Reason: No Insulin Coverage Isosorbide Mononitrate (Isosorbide Mononitrate 60 Mg Tab.Er.24h) 120 mg PO DAILY [facility]; Protocol Last Admin: 03/23/21 08:25 Dose: 120 mg Documented by: CHANDA Levothyroxine Sodium (Levothyroxine Sodium 100 Mcg Tablet) 100 mcg PO DAILY@0600 [facility] Last Admin: 03/23/21 05:26 Dose: 100 mcg Documented by: ARNUAD Melatonin (Melatonin 3 Mg Tablet) 6 mg PO BEDTIME PRN PRN Reason: Insomnia Last Admin: 03/20/21 00:11 Dose: 6 mg Documented by: MADAI Omeprazole (Omeprazole 20 Mg Capsule.) 20 mg PO BID@1553,1652 [facility] Last Admin: 03/23/21 05:26 Dose: 20 mg Documented by: ARNAUD Pharmacy Consult (Consult Rx Perform Med Rec) 1 each MISCELLANE ONCE PRN PRN Reason: Consult order Senna (Sennosides 8.6 Mg Tablet) 17.2 mg PO BEDTIME PRN PRN Reason: Constipation Sodium Chloride (0.9 % Sodium Chloride Flush 3 Ml Syringe) 3 ml IVFLUSH QSHIFT [facility] Last Admin: 03/23/21 08:26 Dose: 3 ml Documented by: CHANDA Vitamin D (Cholecalciferol (Vitamin D3) 25 Mcg Tablet) 50 mcg PO DAILY [facility] Last Admin: 03/23/21 08:25 Dose: 50 mcg Documented by: CHANDA Labs CBC & Chem 7: 03/23/21 05:53 03/23/21 05:53 Labs: Laboratory Results - last 24 hr 03/22/21 03/22/21 03/22/21 11:45 15:58 19:32 MCV MCH MCHC RDW Plt Count MPV Immature Gran % (Auto) Neut % (Auto) Lymph % (Auto) [place] % (Auto) Eos % (Auto) Baso % (Auto) Lymph # (Auto) [place] # (Auto) Eos # (Auto) Baso # (Auto) Abs Immat Gran (auto) Absolute Neuts (auto) Absolute Nucleated RBC Nucleated RBC % (auto) Anion Gap Estim Creat Clear Calc Estimated GFR POC Glucose 177 H 81 101 Random Glucose Fasting Glucose Calcium Total Bilirubin AST ALT Alkaline Phosphatase B-Natriuretic Peptide Total Protein Albumin Carcinoembryonic Ag TSH 03/23/21 03/23/21 03/23/21 05:53 05:53 05:53 MCV 90.0 MCH 29.3 MCHC 32.5 RDW 14.5 Plt Count 249 MPV 10.4 Immature Gran % (Auto) 0.7 H Neut % (Auto) 64.4 Lymph % (Auto) 25.9 [place] % (Auto) 7.2 Eos % (Auto) 1.6 Baso % (Auto) 0.2 Lymph # (Auto) 1.1 L [place] # (Auto) 0.3 Eos # (Auto) 0.1 Baso # (Auto) 0.0 Abs Immat Gran (auto) 0.03 Absolute Neuts (auto) 2.8 Absolute Nucleated RBC 0.000 Nucleated RBC % (auto) 0.0 Anion Gap 9 L Estim Creat Clear Calc 17.3 Estimated GFR 20 POC Glucose Random Glucose Fasting Glucose 76 Calcium 7.5 L Total Bilirubin 0.5 AST 41 H ALT 25 Alkaline Phosphatase 101 B-Natriuretic Peptide Total Protein 3.4 L Albumin 1.8 L Carcinoembryonic Ag 8.50 TSH 26.58 H 03/23/21 03/23/21 03/23/21 05:53 05:53 07:23 MCV MCH MCHC RDW Plt Count MPV Immature Gran % (Auto) Neut % (Auto) Lymph % (Auto) [place] % (Auto) Eos % (Auto) Baso % (Auto) Lymph # (Auto) [place] # (Auto) Eos # (Auto) Baso # (Auto) Abs Immat Gran (auto) Absolute Neuts (auto) Absolute Nucleated RBC Nucleated RBC % (auto) Anion Gap 9 L Estim Creat Clear Calc 17.3 Estimated GFR 20 POC Glucose 77 Random Glucose 77 Fasting Glucose Calcium 7.6 L Total Bilirubin AST ALT Alkaline Phosphatase B-Natriuretic Peptide 472 H Total Protein Albumin Carcinoembryonic Ag TSH 03/23/21 11:28 MCV MCH MCHC RDW Plt Count MPV Immature Gran % (Auto) Neut % (Auto) Lymph % (Auto) [place] % (Auto) Eos % (Auto) Baso % (Auto) Lymph # (Auto) [place] # (Auto) Eos # (Auto) Baso # (Auto) Abs Immat Gran (auto) Absolute Neuts (auto) Absolute Nucleated RBC Nucleated RBC % (auto) Anion Gap Estim Creat Clear Calc Estimated GFR POC Glucose 147 H Random Glucose Fasting Glucose Calcium Total Bilirubin AST ALT Alkaline Phosphatase B-Natriuretic Peptide Total Protein Albumin Carcinoembryonic Ag TSH Assessment and Plan (1) Hypertensive emergency: Status: Acute (2) Acute diastolic (congestive) heart failure: Status: Acute Assessment and Plan: 80-year-old female with a past medical history of hypertension, hyperlipidemia, diabetes, CAD, CHF, CKD, guided stenosis, hypothyroidism, pulmonary nodule, RAISA, paroxysmal AFib -not on anticoagulation, history of thyroid cancer status post thyroidectomy, anemia, COPD, GERD presented to the hospital today with a chief complaint of shortness of breath/generalized weakness/vomiting. 1.Acute CHF exacerbation: Echocardiogram from December 2019 showed EF greater than 70%, inferior segment hypokinetic, no valvular pathology. Improving. Meds adjusted as per Cards. continue IV Lasix daily Presentation likely secondary to non-compliance 2. uncontrolled HTN secondary to adherence problem better controlled after restarting some of home medications Hold amlodipine for the time being and monitor blood pressure 3.Liver cirrhosis: Stable/Chronic. Has significant low albumin level, will need nutritional advice add Ensure 4. Acute on chronic CKD Creatinine continue to worsen with no clear response to albumin continue IV lasix Follow Creat/divalents 5. Hypothyroidism unclear if she was Off meds TSH elevated at 26, expected s/p thyroidectomy was not taking the medication at home, Restart meds, levothyroxine dose increased to 100 for now, to follow-up with PCP or Endocrinology as outpatient DVT prophylaxis: Subcu heparin Code status: Full code Quality Stroke Does the patient have a stroke diagnosis?: No VTE Prior VTE?: No VTE Risk Level:: Medical - moderate - high VTE Device Contraindication: Treatment Not Indicated VTE Drug Contraindication: N/A - Med Ordered
[2021-03-23] MEDS: hydrALAZINE HCl 50 MG TABLET 100 MG PO ×2 (12:15→20:18)
[2021-03-23 13:16] LABS: COVID-19 Test Negative (Negative); IDNOW Serial# 9DD0AD1C
[2021-03-23 16:36] LABS: Glucose, Whole Blood 92 mg/dL (60-115)
[2021-03-23 19:50] LABS: Glucose, Whole Blood 126 mg/dL (60-115)
[2021-03-23] MEDS: Atorvastatin Calcium 80 MG TABLET PO (20:17)
[2021-03-24] VITALS (16 sets, daily range): BP systolic 134–166; BP diastolic 60–92; PULSE 78–94; RESP 15–20; TEMP 36–36.8; O2SAT 95–97
[2021-03-24] MEDS: Levothyroxine Sodium 100 MCG TABLET PO (05:42)
[2021-03-24] MEDS: Omeprazole 20 MG CAPSULE.DR PO ×2 (05:42→16:48)
[2021-03-24 07:23] LABS: Anion Gap 9 (12-20); Blood Urea Nitrogen 20 mg/dL (9-16); Calcium 7.3 mg/dL (8.4-10.2); Carbon Dioxide 26 mmol/L (22-29); Chloride 109 mmol/L (96-108); Creatinine Clr Calc Pharmacy 16.2; Estimated Glomerular Filt Rate 18; Glucose Random 84 mg/dL (60-115); Potassium 3.7 mmol/L (3.3-5.1); Sodium 140 mmol/L (135-145)
[2021-03-24 07:27] LABS: Glucose, Whole Blood 76 mg/dL (60-115)
[2021-03-24] MEDS: 0.9 % Sodium Chloride Flush 3 ML SYRINGE IVFLUSH ×3 (07:35→20:35)
[2021-03-24] MEDS: Isosorbide Mononitrate 60 MG TAB.ER.24H 120 MG PO (07:35)
[2021-03-24] MEDS: Cholecalciferol (Vitamin D3) 25 MCG TABLET 50 MCG PO (07:35)
[2021-03-24] MEDS: hydrALAZINE HCl 50 MG TABLET 100 MG PO ×3 (07:35→20:35)
[2021-03-24] MEDS: Furosemide 40 MG/4 ML VIAL IVPUSH (07:36)
[2021-03-24] MEDS: Heparin Sodium,Porcine 5,000 UNIT/ML VIAL 5000 UNIT SUBCUT ×2 (07:36→20:34)
[2021-03-24] MEDS: Ferrous Sulfate 324 MG TABLET.DR PO ×2 (07:36→20:34)
[2021-03-24] MEDS: carvediloL 6.25 MG TABLET PO ×2 (07:36→20:35)
[2021-03-24] MEDS: Albuterol Sulfate 90 MCG 8 GM INHALER 2 PUFF INHALE ×4 (08:27→20:03)
[2021-03-24] MEDS: Doxazosin Mesylate 2 MG TABLET 12 MG PO (08:28)
--- NOTE | 2021-03-24 10:41 | PM.PNNEP ---
Subjective Subjective Date of Service: 03/24/21 Interval history: Patient seen and examined consult dictated Physical Exam Vital Signs: Vital Signs: Last Vital Signs Temp 97.7 F 03/24/21 07:08 Pulse 88 03/24/21 08:29 Resp 18 03/24/21 08:29 BP 166/71 H 03/24/21 08:28 Pulse Ox 97 03/24/21 07:08 BMI result Body Mass Index 30.9 Objective Data Labs CBC & Chem 7: 03/23/21 05:53 03/24/21 06:09 Labs: Laboratory Results - last 24 hr 03/23/21 03/23/21 03/23/21 11:28 12:19 16:25 Sodium Potassium Chloride Carbon Dioxide Anion Gap BUN Creatinine Estim Creat Clear Calc Estimated GFR POC Glucose 147 H 92 Random Glucose Calcium COVID-19 (ADRIANA) Negative COVID-19 Clin Com See Note 03/23/21 03/24/21 03/24/21 19:38 06:09 07:07 Sodium 140 Potassium 3.7 Chloride 109 H Carbon Dioxide 26 Anion Gap 9 L BUN 20 H Creatinine 2.54 H Estim Creat Clear Calc 16.2 Estimated GFR 18 POC Glucose 126 H 76 Random Glucose 84 Calcium 7.3 L COVID-19 (ADRIANA) COVID-19 Clin Com Microbiology Microbiology Results: Microbiology 03/19/21 16:06 Blood - Venous Blood Culture - Preliminary No growth after 48 hours. 03/19/21 14:26 Blood - Venous Blood Culture - Preliminary No growth after 48 hours. Procedures Date of Service Date of Service: 03/24/21 Assessment & Plan Assessment and plan (1) MARILEE (acute kidney injury): Status: Acute (2) Heart failure with preserved ejection fraction: Status: Acute (3) HTN (hypertension): Status: Acute (4) CKD (chronic kidney disease) stage 4, GFR 15-29 ml/min: Status: Acute Assessment and Plan: MARILEE c/w cardiorenal syndrome severe restriction in free water clearance known CKD due to biopsy proven diabetic nephropathy history of nephrotic range proteinuria (6 grams) signals risk for abrupt kidney function derterioration baseline serum creatinine ~ 2 mg/dl echocardiogram showed LVEF 65-70% blood pressure remains elevated REC increase beta anita to increase filling time continue IV diuresis protect non dominant arm follow kidney function and electrolytes Time Spent With Patient Time: Total time spent is greater than 50% in coordination of care (as documented) at patient's floor/unit and/or counseling patient: Progress Note: Quality Stroke Does the patient have a stroke diagnosis?: No
[2021-03-24 11:38] LABS: Glucose, Whole Blood 141 mg/dL (60-115)
--- NOTE | 2021-03-24 12:29 | HO.PM.IMPN ---
Subjective Subjective Date of Service: 03/24/21 Interval History: the patient was seen and evaluated this morning Laying in bed, feels who worse and more lethargic and tired today Reporting worsening shortness of breath and dyspnea with exertion The nurse noted that she is very weak upon standing Denies any fever, chills or chest pain No reported other overnight events. Systemic review: No fever, chills but increased weakness No chest pain, palpitation dyspnea with minimal exertion, coughing No abdominal pain, nausea or vomiting No urinary symptoms No any rash or wounds Physical Exam Vital Signs: Vital Signs: Last Vital Signs Temp 98.2 F 03/24/21 11:32 Pulse 88 03/24/21 12:05 Resp 18 03/24/21 12:05 BP 142/92 H 03/24/21 11:32 Pulse Ox 97 03/24/21 11:32 BMI result Body Mass Index 30.9 Const: Other: Constitutional : Alert, oriented, not in distress, overall weakness Neck : Normal inspection, Supple Cardiovascular : RRR, S1 S2, plus one bilateral lower extremity edema Respiratory : fair bilateral air entry, basal fine crackles, wheezes or rhonchi Gastrointestinal: soft, lax, Normal bowel sounds, Non tender Skin : Warm, Dry Neurological : Alert & oriented x3, No focal deficit Objective Data Active Medications Acetaminophen (Acetaminophen 325 Mg Tablet) 650 mg PO Q6H PRN PRN Reason: Pain, Mild (Pain Scale 1-3) Al Hydroxide/Mg Hydroxide (Magnesium Hydrox/Alum Hydrox 30 Ml Oral.Susp) 30 ml PO Q4H PRN PRN Reason: GI Upset Last Admin: 03/20/21 15:49 Dose: 30 ml Documented by: DOROTA Albuterol Sulfate (Albuterol Sulfate 90 Mcg 8 Gm Inhaler) 2 puff INHALE RQ4H [facility] Last Admin: 03/24/21 12:03 Dose: 2 puff Documented by: TERESA Atorvastatin Calcium (Atorvastatin Calcium 80 Mg Tablet) 80 mg PO BEDTIME [facility] Last Admin: 03/23/21 20:17 Dose: 80 mg Documented by: PAM Carvedilol (Carvedilol 6.25 Mg Tablet) 6.25 mg PO BID [facility]; Protocol Last Admin: 03/24/21 07:36 Dose: 6.25 mg Documented by: JOSE MARTIN Dextrose (Dextrose 50 % 25 Gm/50 Ml Vial) 25 gm IVPUSH Q15M PRN; Protocol PRN Reason: per Hypoglycemia Standing Ord. Doxazosin Mesylate (Doxazosin Mesylate 2 Mg Tablet) 12 mg PO DAILY [facility]; Protocol Last Admin: 03/24/21 08:28 Dose: 12 mg Documented by: JOSE MARTIN Ferrous Sulfate (Ferrous Sulfate 324 Mg Tablet.) 324 mg PO BID [facility] Last Admin: 03/24/21 07:36 Dose: 324 mg Documented by: JOSE MARTIN Furosemide (Furosemide 40 Mg/4 Ml Vial) 40 mg IVPUSH DAILY [facility]; Protocol Last Admin: 03/24/21 07:36 Dose: 40 mg Documented by: JOSE MARTIN Glucose (Glucose Gel 15 Gm Gel..Gram.) 15 gm PO Q15M PRN; Protocol PRN Reason: per Hypoglycemia Standing Ord. Heparin Sodium (Porcine) (Heparin Sodium,Porcine 5,000 Unit/Ml Vial) 5,000 unit SUBCUT Q12H [facility] Last Admin: 03/24/21 07:36 Dose: 5,000 unit Documented by: JOSE MARTIN Hydralazine HCl (Hydralazine Hcl 50 Mg Tablet) 100 mg PO TID [facility]; Protocol Last Admin: 03/24/21 07:35 Dose: 100 mg Documented by: JOSE MARTIN Insulin Human Lispro (Insulin Lispro 100 Unit/Ml 3 Ml Vial) 0 unit SUBCUT QIDACHS [facility]; Protocol Last Admin: 03/24/21 11:36 Dose: Not Given Documented by: JOSE MARTIN Non-Admin Reason: No Insulin Coverage Isosorbide Mononitrate (Isosorbide Mononitrate 60 Mg Tab.Er.24h) 120 mg PO DAILY [facility]; Protocol Last Admin: 03/24/21 07:35 Dose: 120 mg Documented by: JOSE MARTIN Levothyroxine Sodium (Levothyroxine Sodium 100 Mcg Tablet) 100 mcg PO DAILY@0600 [facility] Last Admin: 03/24/21 05:42 Dose: 100 mcg Documented by: ODRISNasim Melatonin (Melatonin 3 Mg Tablet) 6 mg PO BEDTIME PRN PRN Reason: Insomnia Last Admin: 03/20/21 00:11 Dose: 6 mg Documented by: MADAI Omeprazole (Omeprazole 20 Mg Capsule.) 20 mg PO BID@0630,1630 [facility] Last Admin: 03/24/21 05:42 Dose: 20 mg Documented by: PAM Pharmacy Consult (Consult Rx Perform Med Rec) 1 each MISCELLANE ONCE PRN PRN Reason: Consult order Senna (Sennosides 8.6 Mg Tablet) 17.2 mg PO BEDTIME PRN PRN Reason: Constipation Sodium Chloride (0.9 % Sodium Chloride Flush 3 Ml Syringe) 3 ml IVFLUSH QSHIFT [facility] Last Admin: 03/24/21 07:53 Dose: 3 ml Documented by: JOSE MARTIN Vitamin D (Cholecalciferol (Vitamin D3) 25 Mcg Tablet) 50 mcg PO DAILY [facility] Last Admin: 03/24/21 07:35 Dose: 50 mcg Documented by: JOSE MARTIN Labs CBC & Chem 7: 03/23/21 05:53 03/24/21 06:09 Labs: Laboratory Results - last 24 hr 03/23/21 03/23/21 03/23/21 12:19 16:25 19:38 Anion Gap Estim Creat Clear Calc Estimated GFR POC Glucose 92 126 H Random Glucose Calcium COVID-19 (ADRIANA) Negative COVID-19 Clin Com See Note 03/24/21 03/24/21 03/24/21 06:09 07:07 11:31 Anion Gap 9 L Estim Creat Clear Calc 16.2 Estimated GFR 18 POC Glucose 76 141 H Random Glucose 84 Calcium 7.3 L COVID-19 (ADRIANA) COVID-19 Clin Com Assessment and Plan (1) MARILEE (acute kidney injury): Status: Acute (2) CKD (chronic kidney disease) stage 4, GFR 15-29 ml/min: Status: Acute (3) Heart failure with preserved ejection fraction: Status: Acute Assessment and Plan: 80-year-old female with a past medical history of hypertension, hyperlipidemia, diabetes, CAD, CHF, CKD, guided stenosis, hypothyroidism, pulmonary nodule, RAISA, paroxysmal AFib -not on anticoagulation, history of thyroid cancer status post thyroidectomy, anemia, COPD, GERD presented to the hospital today with a chief complaint of shortness of breath/generalized weakness/vomiting. 1.Acute diastolic CHF exacerbation: Presentation likely secondary to non-compliance Echocardiogram from December 2019 showed EF greater than 70%, inferior segment hypokinetic, no valvular pathology. Patient's building up more fluids continue IV Lasix 40 mg daily, to review with Nephrology before increasing it as kidney function is worsening 2. uncontrolled HTN Better controlled but still elevated secondary to noncompliance better controlled after restarting some of home medications Restart amlodipine 5 mg daily for now 3.Liver cirrhosis: Stable/Chronic. Has significant low albumin level, will need nutritional advice add Ensure 4. Acute on chronic CKD IV Creatinine continue to worsen with no clear response to albumin continue IV lasix Follow Creat/divalents Nephrology consult pending 5. Hypothyroidism unclear if she was Off meds TSH elevated at 26, expected s/p thyroidectomy was not taking the medication at home, Restart meds, levothyroxine dose increased to 100 for now, to follow-up with PCP or Endocrinology as outpatient DVT prophylaxis: Subcu heparin Code status: Full code Quality Stroke Does the patient have a stroke diagnosis?: No VTE Prior VTE?: No VTE Risk Level:: Medical - moderate - high VTE Device Contraindication: Treatment Not Indicated VTE Drug Contraindication: N/A - Med Ordered
[2021-03-24] MEDS: amLODIPine Besylate 5 MG TABLET PO (13:43)
[2021-03-24 16:28] LABS: Glucose, Whole Blood 107 mg/dL (60-115)
--- NOTE | 2021-03-24 18:20 | PC.NURSE ---
Pt alert and oriented x3. pt c/O weakness and malaise and refuses to even lift a cup stating I can't. i am too weak. Pt is NSR on tele with Hr in the 80s. Ambulated with 2 assist OOB with a walker. Pt encouraged to get on on the recliner but continues to refuse.
[2021-03-24] MEDS: Atorvastatin Calcium 80 MG TABLET PO (20:34)
[2021-03-24 20:36] LABS: Glucose, Whole Blood 109 mg/dL (60-115)
[2021-03-25] VITALS (12 sets, daily range): BP systolic 135–166; BP diastolic 60–85; PULSE 71–111; RESP 18–20; TEMP 36–36.8; O2SAT 94–98
[2021-03-25] MEDS: Levothyroxine Sodium 100 MCG TABLET PO (05:36)
[2021-03-25] MEDS: Omeprazole 20 MG CAPSULE.DR PO ×2 (05:36→16:16)
[2021-03-25 06:50] LABS: Anion Gap 11 (12-20); Blood Urea Nitrogen 22 mg/dL (9-16); Calcium 7.4 mg/dL (8.4-10.2); Carbon Dioxide 26 mmol/L (22-29); Chloride 108 mmol/L (96-108); Creatinine Clr Calc Pharmacy 16.1; Estimated Glomerular Filt Rate 18; Glucose Random 86 mg/dL (60-115); Potassium 3.6 mmol/L (3.3-5.1); Sodium 141 mmol/L (135-145)
[2021-03-25 06:55] LABS: B Type Natriuretic Peptide 445 pg/mL (<100)
[2021-03-25] MEDS: Furosemide 40 MG/4 ML VIAL IVPUSH (08:32)
[2021-03-25] MEDS: Isosorbide Mononitrate 60 MG TAB.ER.24H 120 MG PO (08:33)
[2021-03-25] MEDS: Ferrous Sulfate 324 MG TABLET.DR PO ×2 (08:33→20:05)
[2021-03-25] MEDS: hydrALAZINE HCl 50 MG TABLET 100 MG PO ×3 (08:33→20:05)
[2021-03-25] MEDS: carvediloL 6.25 MG TABLET PO ×2 (08:33→20:04)
[2021-03-25] MEDS: Cholecalciferol (Vitamin D3) 25 MCG TABLET 50 MCG PO (08:33)
[2021-03-25] MEDS: Doxazosin Mesylate 2 MG TABLET 12 MG PO (08:33)
[2021-03-25] MEDS: 0.9 % Sodium Chloride Flush 3 ML SYRINGE IVFLUSH ×3 (08:33→20:05)
[2021-03-25] MEDS: Heparin Sodium,Porcine 5,000 UNIT/ML VIAL 5000 UNIT SUBCUT ×2 (08:34→20:19)
[2021-03-25] MEDS: amLODIPine Besylate 5 MG TABLET PO (08:34)
[2021-03-25] MEDS: Albuterol Sulfate 90 MCG 8 GM INHALER 2 PUFF INHALE ×3 (08:38→20:25)
[2021-03-25 10:01] LABS: Glucose, Whole Blood 78 mg/dL (60-115)
--- NOTE | 2021-03-25 10:14 | PM.PNNEP ---
Subjective Subjective Date of Service: 03/25/21 Interval history: the patient was seen and evaluated this morning Laying in bed, feels who worse and more lethargic and tired today Reporting worsening shortness of breath and dyspnea with exertion The nurse noted that she is very weak upon standing Denies any fever, chills or chest pain No reported other overnight events. Systemic review: No fever, chills but increased weakness No chest pain, palpitation dyspnea with minimal exertion, coughing No abdominal pain, nausea or vomiting No urinary symptoms No any rash or wounds Physical Exam Vital Signs: Vital Signs: Last Vital Signs Temp 97.2 F 03/25/21 07:21 Pulse 88 03/25/21 08:40 Resp 18 03/25/21 08:40 BP 152/85 H 03/25/21 07:21 Pulse Ox 97 03/25/21 07:21 BMI result Body Mass Index 30.9 Const: Other: Constitutional : Alert, oriented, not in distress, overall weakness Neck : Normal inspection, Supple Cardiovascular : RRR, S1 S2, plus one bilateral lower extremity edema Respiratory : fair bilateral air entry, basal fine crackles, wheezes or rhonchi Gastrointestinal: soft, lax, Normal bowel sounds, Non tender Skin : Warm, Dry Neurological : Alert & oriented x3, No focal deficit General: no acute distress HENMT: Other: Unremarkable Neck: Neck: Yes normal visual inspection Chest: Chest palpation & inspection: normal inspection of the chest Resp: Auscultation: crackles and no wheezes Cardio: Palpation: normal PMI Heart sounds: S1 normal heart sound present, S2 normal heart sound present, no gallops, no murmurs and no rubs GI: Palpation (GI): Soft to palpation Back/Spine/Pelvis: Other: unremarkable Skin: Lesions: other Neuro: Cranial nerves: Yes Other cranial nerve findings present Extrem: Other: 1+ edema General: Yes other Psych: Mental Status: other Objective Data Labs CBC & Chem 7: 03/23/21 05:53 03/25/21 06:07 Labs: Laboratory Results - last 24 hr 03/24/21 03/24/21 03/24/21 11:31 16:14 20:28 Sodium Potassium Chloride Carbon Dioxide Anion Gap BUN Creatinine Estim Creat Clear Calc Estimated GFR POC Glucose 141 H 107 109 Random Glucose Calcium B-Natriuretic Peptide 03/25/21 03/25/21 03/25/21 06:07 06:07 07:24 Sodium 141 Potassium 3.6 Chloride 108 Carbon Dioxide 26 Anion Gap 11 L BUN 22 H Creatinine 2.57 H Estim Creat Clear Calc 16.1 Estimated GFR 18 POC Glucose 78 Random Glucose 86 Calcium 7.4 L B-Natriuretic Peptide 445 H Microbiology Microbiology Results: Microbiology 03/19/21 16:06 Blood - Venous Blood Culture - Final No growth after 5 days. 03/19/21 14:26 Blood - Venous Blood Culture - Final No growth after 5 days. Procedures Date of Service Date of Service: 03/25/21 Assessment & Plan Assessment and plan (1) MARILEE (acute kidney injury): Status: Acute Assessment and Plan: resolved (2) CKD (chronic kidney disease) stage 4, GFR 15-29 ml/min: Status: Acute Assessment and Plan: stable (3) Heart failure with preserved ejection fraction: Status: Acute Assessment and Plan: 80-year-old female with a past medical history of hypertension, hyperlipidemia, diabetes, CAD, CHF, CKD, guided stenosis, hypothyroidism, pulmonary nodule, RAISA, paroxysmal AFib -not on anticoagulation, history of thyroid cancer status post thyroidectomy, anemia, COPD, GERD presented to the hospital today with a chief complaint of shortness of breath/generalized weakness/vomiting. 1.Acute diastolic CHF exacerbation: Presentation likely secondary to non-compliance Echocardiogram from December 2019 showed EF greater than 70%, inferior segment hypokinetic, no valvular pathology. Patient's building up more fluids continue IV Lasix 40 mg daily, to review with Nephrology before increasing it as kidney function is worsening 2. uncontrolled HTN Better controlled but still elevated secondary to noncompliance better controlled after restarting some of home medications Restart amlodipine 5 mg daily for now 3.Liver cirrhosis: Stable/Chronic. Has significant low albumin level, will need nutritional advice add Ensure 4. Acute on chronic CKD IV Creatinine continue to worsen with no clear response to albumin continue IV lasix Follow Creat/divalents treat anemia procrit check iron 5. Hypothyroidism unclear if she was Off meds TSH elevated at 26, expected s/p thyroidectomy was not taking the medication at home, Restart meds, levothyroxine dose increased to 100 for now, to follow-up with PCP or Endocrinology as outpatient DVT prophylaxis: Subcu heparin Code status: Full code Time Spent With Patient Time: Total time spent is greater than 50% in coordination of care (as documented) at patient's floor/unit and/or counseling patient: Progress Note: Quality Stroke Does the patient have a stroke diagnosis?: No
[2021-03-25 11:16] LABS: Iron 59 mcg/dL (30-160); Total Iron Binding Capacity < 76 mcg/dL (228-428); Unsaturated Iron Binding < 17 ug/dL
[2021-03-25 11:36] LABS: Ferritin 1203 ng/mL (10-250)
[2021-03-25 11:49] LABS: Glucose, Whole Blood 106 mg/dL (60-115)
--- NOTE | 2021-03-25 12:42 | CONS_ITS ---
DATE OF SERVICE: 03/24/2021 HISTORY OF PRESENT ILLNESS: This is an 80-year-old patient with a history of chronic kidney disease, who presents to the hospital with shortness of breath, generalized weakness, and vomiting, is currently with worsening kidney function. At the time of the consultation, the patient tells me that she is having hard time breathing. She did have an echocardiogram back in 2019, which showed the left ventricular ejection fraction greater 70%. She is being hypertensive during her hospital stay with systolic blood pressure in the range of 150-170. She had a CT scan of the chest on the , which showed evidence for moderate left and small right pleural effusion in addition to the 1 cm left upper lobe pulmonary nodule which was previously seen. PAST MEDICAL HISTORY: Remarkable for chronic kidney disease stage 4, diabetes mellitus, hypertension, congestive heart failure, hypothyroidism, dyslipidemia, coronary artery disease. PAST SURGICAL HISTORY: Notable for history of angioplasty, history of hysterectomy. CURRENT MEDICATIONS: As an inpatient include doxazosin, hydralazine, isosorbide, furosemide, levothyroxine, heparin. ALLERGIES: TO OXYCODONE. SOCIAL HISTORY: Does not smoke. FAMILY HISTORY: Negative for kidney disease. REVIEW OF SYSTEMS: 10-point review of system negative except for pertaining to History of Present Illness. PHYSICAL EXAMINATION: VITAL SIGNS: The blood pressure is 166/71, heart rate 88, respiratory rate 18, temperature 97.7. CONSTITUTIONAL: Looks stated age. No acute distress. NEUROLOGIC: Alert, awake, and normocephalic. NECK: Supple. LUNGS: Decreased breath sounds. CARDIOVASCULAR: S1, S2. No rub. ABDOMEN: Soft, obese, nontender. EXTREMITIES: No peripheral edema. LABORATORY DATA: Showed sodium 140, potassium 3.7, chloride 109, CO2 26, BUN 20, creatinine 2.54. Urinalysis with 2+ albumin. White count 4.3, hemoglobin 8.2, platelet count 249. IMPRESSION: 1. Acute kidney injury. 2. Heart failure with preserved ejection fraction. 3. Nephrotic-range proteinuria. 4. Chronic kidney disease stage 4. This is a patient with acute kidney injury due to cardiorenal syndrome. She has known biopsy-proven diabetic nephropathy and severe restriction of free water excretion. She is known to have nephrotic-range proteinuria with more than 6 hours of protein in the urine, which signals abrupt risk for acute kidney function decline. Recent echocardiogram showed normal left ventricular ejection fraction in the range of 65%-70%. She is hypertensive and I would increase her carvedilol to increase her filling time and I will continue with IV diuretic. We will protect nondominant arm as she is at risk for renal replacement therapy in the next 6 months and we will continue to follow closely on kidney function and electrolytes. Thank you for allowing me to participate in the care of this patient. MD LINDA Moody/MARIJA / [phone]
--- NOTE | 2021-03-25 13:29 | MHC.CM.PN ---
Addendum entered by Racquel Al, RN 03/25/21 14:05: CM SPOKE W/PT'S SIMEON WHILE HE WAS AT [facility], SIMEON IS AGREEABLE TO PLAN OF SENDING PT TO [facility] AND THEN TRANSFERRING PT TO [facility] BED BECOMES AVAILABLE, SIMEON IS AWARE PT WILL NOT D/C TODAY AND ANTIC POSSIBLE D/C TOMORROW 03/26/21. CM WILL CONT TO FOLLOW D/C NEEDS. Original Note: EMR REVIEWED, PER HOSPITALIST NO D/C TODAY, ANTIC D/C TOMORROW 03/26/21 AND WILL TRANSFER TO [facility] W/PLAN TO TRANSFER PT TO [facility] ONCE BED IS AVAILABLE, CM ATTEMPTED TO CONFIRM W/PT'S SIMEON AT [phone], CM ATTEMPTED TO CALL AT LEAST 6 X'S THE LAST BEING AT 1:35PM HOWEVER, CALL GOES STRAIGHT TO MESSAGE W/NO ABILITY TO LEAVE A MESSAGE/CONTACT INFO, CM WILL CONT TRYING TO GET A HOD OF PT'S .
--- NOTE | 2021-03-25 13:53 | P.PNIM_ITS ---
Subjective Subjective Date of Service: 03/25/21 Interval History: no acute issues overnight Review of Systems denies chest pain Denies shortness of breath Denies nausea vomiting diarrhea Physical Exam Vital Signs: Vital Signs: Last Vital Signs Temp 96.8 F 03/25/21 11:18 Pulse 86 03/25/21 12:27 Resp 20 03/25/21 12:27 BP 135/60 03/25/21 11:18 Pulse Ox 96 03/25/21 11:18 BMI result Body Mass Index 30.9 Objective Data Active Medications Acetaminophen (Acetaminophen 325 Mg Tablet) 650 mg PO Q6H PRN PRN Reason: Pain, Mild (Pain Scale 1-3) Al Hydroxide/Mg Hydroxide (Magnesium Hydrox/Alum Hydrox 30 Ml Oral.Susp) 30 ml PO Q4H PRN PRN Reason: GI Upset Last Admin: 03/20/21 15:49 Dose: 30 ml Documented by: DOROTA Albuterol Sulfate (Albuterol Sulfate 90 Mcg 8 Gm Inhaler) 2 puff INHALE RQ4H [facility] Last Admin: 03/25/21 12:26 Dose: 2 puff Documented by: NIKOLAY Amlodipine Besylate (Amlodipine Besylate 5 Mg Tablet) 5 mg PO DAILY [facility]; Protocol Last Admin: 03/25/21 08:34 Dose: 5 mg Documented by: TOMMY Atorvastatin Calcium (Atorvastatin Calcium 80 Mg Tablet) 80 mg PO BEDTIME [facility]ORIA[facility] Last Admin: 03/24/21 20:34 Dose: 80 mg Documented by: ARNAUD Carvedilol (Carvedilol 6.25 Mg Tablet) 6.25 mg PO BID [facility]; Protocol Last Admin: 03/25/21 08:33 Dose: 6.25 mg Documented by: TOMMY Dextrose (Dextrose 50 % 25 Gm/50 Ml Vial) 25 gm IVPUSH Q15M PRN; Protocol PRN Reason: per Hypoglycemia Standing Ord. Doxazosin Mesylate (Doxazosin Mesylate 2 Mg Tablet) 12 mg PO DAILY [facility]; Protocol Last Admin: 03/25/21 08:33 Dose: 12 mg Documented by: TOMMY Ferrous Sulfate (Ferrous Sulfate 324 Mg Tablet.Dr) 324 mg PO BID [facility] Last Admin: 03/25/21 08:33 Dose: 324 mg Documented by: TOMMY Furosemide (Furosemide 40 Mg/4 Ml Vial) 40 mg IVPUSH DAILY [facility]; Protocol Last Admin: 03/25/21 08:32 Dose: 40 mg Documented by: TOMMY Glucose (Glucose Gel 15 Gm Gel..Gram.) 15 gm PO Q15M PRN; Protocol PRN Reason: per Hypoglycemia Standing Ord. Heparin Sodium (Porcine) (Heparin Sodium,Porcine 5,000 Unit/Ml Vial) 5,000 unit SUBCUT Q12H [facility] Last Admin: 03/25/21 08:34 Dose: 5,000 unit Documented by: TOMMY Hydralazine HCl (Hydralazine Hcl 50 Mg Tablet) 100 mg PO TID [facility]; Protocol Last Admin: 03/25/21 08:33 Dose: 100 mg Documented by: TOMMY Insulin Human Lispro (Insulin Lispro 100 Unit/Ml 3 Ml Vial) 0 unit SUBCUT QIDACHS [facility]; Protocol Last Admin: 03/25/21 11:57 Dose: Not Given Documented by: LUIS MIGUEL Non-Admin Reason: No Insulin Coverage Isosorbide Mononitrate (Isosorbide Mononitrate 60 Mg Tab.Er.24h) 120 mg PO DAILY [facility]; Protocol Last Admin: 03/25/21 08:33 Dose: 120 mg Documented by: TOMMY Levothyroxine Sodium (Levothyroxine Sodium 100 Mcg Tablet) 100 mcg PO DAILY@0600 [facility] Last Admin: 03/25/21 05:36 Dose: 100 mcg Documented by: ARNAUD Melatonin (Melatonin 3 Mg Tablet) 6 mg PO BEDTIME PRN PRN Reason: Insomnia Last Admin: 03/20/21 00:11 Dose: 6 mg Documented by: MADAI Omeprazole (Omeprazole 20 Mg Capsule.) 20 mg PO BID@0630,1630 [facility] Last Admin: 03/25/21 05:36 Dose: 20 mg Documented by: ARNAUD Pharmacy Consult (Consult Rx Perform Med Rec) 1 each MISCELLANE ONCE PRN PRN Reason: Consult order Senna (Sennosides 8.6 Mg Tablet) 17.2 mg PO BEDTIME PRN PRN Reason: Constipation Sodium Chloride (0.9 % Sodium Chloride Flush 3 Ml Syringe) 3 ml IVFLUSH QSHIFT [facility] Last Admin: 03/25/21 08:33 Dose: 3 ml Documented by: TOMMY Vitamin D (Cholecalciferol (Vitamin D3) 25 Mcg Tablet) 50 mcg PO DAILY [facility] Last Admin: 03/25/21 08:33 Dose: 50 mcg Documented by: TOMMY Labs CBC & Chem 7: 03/23/21 05:53 03/25/21 06:07 Labs: Laboratory Results - last 24 hr 03/24/21 03/24/21 03/25/21 16:14 20:28 06:07 Anion Gap 11 L Estim Creat Clear Calc 16.1 Estimated GFR 18 POC Glucose 107 109 Random Glucose 86 Calcium 7.4 L Iron TIBC % Saturation Unsat Iron Binding Ferritin B-Natriuretic Peptide 03/25/21 03/25/21 03/25/21 06:07 07:24 10:41 Anion Gap Estim Creat Clear Calc Estimated GFR POC Glucose 78 Random Glucose Calcium Iron 59 TIBC < 76 L % Saturation TNP Unsat Iron Binding < 17 Ferritin 1203 H B-Natriuretic Peptide 445 H 03/25/21 11:21 Anion Gap Estim Creat Clear Calc Estimated GFR POC Glucose 106 Random Glucose Calcium Iron TIBC % Saturation Unsat Iron Binding Ferritin B-Natriuretic Peptide Microbiology Microbiology Results: Microbiology 03/19/21 16:06 Blood Culture - Final Blood - Venous No growth after 5 days. 03/19/21 14:26 Blood Culture - Final Blood - Venous No growth after 5 days. Assessment and Plan (1) Acute diastolic (congestive) heart failure: Status: Acute (2) MARILEE (acute kidney injury): Status: Acute (3) Diabetic nephropathy associated with type 2 diabetes mellitus: Status: Acute Assessment and Plan: 80-year-old female with a past medical history of hypertension, hyperlipidemia, diabetes, CAD, CHF, CKD, guided stenosis, hypothyroidism, pulmonary nodule, RAISA, paroxysmal AFib -not on anticoagulation, history of thyroid cancer status post thyroidectomy, anemia, COPD, GERD presented to the hospital today with a chief complaint of shortness of breath/generalized weakness/vomiting. 1.Acute CHF exacerbation: Echocardiogram from December 2019 showed EF greater than 70%, inferior segment hypokinetic, no valvular pathology. Improving. Meds adjusted as per Cards. IV Lasix 40 mg daily Presentation likely secondary to non-compliance 2.HTN continue amlodipine/Coreg its/doxazosin/hydralazine /Imdur as ordered adjust as indicated 3.Liver cirrhosis: Stable/Chronic. Follow labs 4. Acute on chronic CKD Follow response to albumin IV lasix Follow Creat/divalents 5. Hypothyroidism Levothyroxine at 100 mcg per day. Follow-up TSH as outpatient DVT prophylaxis: Subcu heparin Code status: Full code Quality Stroke Does the patient have a stroke diagnosis?: No VTE Prior VTE?: No VTE Risk Level:: Medical - moderate - high VTE Device Contraindication: Treatment Not Indicated VTE Drug Contraindication: N/A - Med Ordered
[2021-03-25 16:53] LABS: Glucose, Whole Blood 87 mg/dL (60-115)
[2021-03-25] MEDS: Atorvastatin Calcium 80 MG TABLET PO (20:05)
[2021-03-25 20:28] LABS: Glucose, Whole Blood 120 mg/dL (60-115)
[2021-03-25 20:37] LABS: ABG Base Excess 5.4 mmol/L; ABG HCO3 29 mmol/L (22-26); ABG pCO2 38 mmHg (32-45); ABG pCO2 TC 37 mmHg (32-45); ABG pH 7.48 (7.35-7.45); ABG pH TC 7.49 (7.35-7.45); ABG pO2 53 mmHg (83-108); ABG pO2 TC 51 (83-108)
[2021-03-26] VITALS: BP 170/80
[2021-03-26 03:28] VITALS: BP 174/70; PULSE 78; RESP 20; TEMP 37.5; O2SAT 97
[2021-03-26] MEDS: Omeprazole 20 MG CAPSULE.DR PO (05:29)
[2021-03-26] MEDS: Levothyroxine Sodium 100 MCG TABLET PO (05:29)
[2021-03-26 05:48] LABS: MANUAL DIFF FLAG NO
[2021-03-26 05:58] LABS: Basophils Percent Auto 0.4 % (0-2); Eosinophils Absolute Auto 0.1 X10*3/uL (0.0-0.4); Eosinophils Percent Auto 1.1 % (0-4); Hemoglobin 7.6 g/dl (12.0-16.0); Imm Gran Abs Auto 0.05 X10*3/uL (0.00-0.03); Imm Gran Pct Auto 1.1 % (0.0-0.4); Lymphocytes Absolute Auto 1.6 X10*3/uL (1.2-4.9); Lymphocytes Percent Auto 33.9 % (20-40); Mean Corpuscular Hemoglobin 29.5 pg (27.0-33.0); Mean Corpuscular Volume 89.1 fL (80.0-98.0); Mean Platelet Volume 10.3 fL (9.4-12.3); Monocytes Absolute Auto 0.4 X10*3/uL (0.1-1.2); Monocytes Percent Auto 8.2 % (2-11); Neutrophils Absolute Auto 2.6 x10*3/uL (2.0-8.3); Neutrophils Percent Auto 55.3 % (45-73); Platelet Count 218 X10*3/uL (160-400); Red Blood Count 2.58 X10*6/uL (4.20-5.50); Red Cell Distribution Width 14.6 % (11.0-16.0); White Blood Count 4.7 X10*3/uL (4.8-10.8)
[2021-03-26 06:20] LABS: Alanine Aminotransferase 47 U/L (0-31); Albumin Level 1.7 g/dL (3.5-5.0); Alkaline Phosphatase 113 U/L (39-117); Anion Gap 7 (12-20); Aspartate Amino Transferase 79 U/L (5-31); Bilirubin Total 0.3 mg/dL (0.0-1.0); Blood Urea Nitrogen 23 mg/dL (9-16); Calcium 7.3 mg/dL (8.4-10.2); Carbon Dioxide 28 mmol/L (22-29); Chloride 107 mmol/L (96-108); Creatinine Clr Calc Pharmacy 16.2; Estimated Glomerular Filt Rate 18; Glucose Fasting 83 mg/dL (60-99); Potassium 3.1 mmol/L (3.3-5.1); Sodium 139 mmol/L (135-145); Total Protein 3.4 g/dL (6.5-8.0)
[2021-03-26 07:18] VITALS: BP 159/55; PULSE 73; RESP 20; TEMP 37.1; O2SAT 99
[2021-03-26 07:33] LABS: Glucose, Whole Blood 78 mg/dL (60-115)
[2021-03-26] MEDS: Heparin Sodium,Porcine 5,000 UNIT/ML VIAL 5000 UNIT SUBCUT (08:27)
[2021-03-26] MEDS: Furosemide 40 MG/4 ML VIAL IVPUSH (08:27)
[2021-03-26] MEDS: Ferrous Sulfate 324 MG TABLET.DR PO (08:28)
[2021-03-26] MEDS: Isosorbide Mononitrate 60 MG TAB.ER.24H 120 MG PO (08:28)
[2021-03-26] MEDS: amLODIPine Besylate 5 MG TABLET PO (08:28)
[2021-03-26] MEDS: Doxazosin Mesylate 2 MG TABLET 12 MG PO (08:29)
[2021-03-26] MEDS: carvediloL 6.25 MG TABLET PO (08:29)
[2021-03-26] MEDS: hydrALAZINE HCl 50 MG TABLET 100 MG PO ×2 (08:30→15:13)
[2021-03-26] MEDS: Cholecalciferol (Vitamin D3) 25 MCG TABLET 50 MCG PO (08:31)
[2021-03-26] MEDS: 0.9 % Sodium Chloride Flush 3 ML SYRINGE IVFLUSH (08:31)
[2021-03-26 11:42] VITALS: BP 149/66; PULSE 75; RESP 20; TEMP 37.3; O2SAT 98
[2021-03-26 11:51] LABS: Glucose, Whole Blood 111 mg/dL (60-115)
--- NOTE | 2021-03-26 13:57 | P.DS_ITS ---
DS: Providers Provider Date of Service: 03/26/21 Date of admission: 03/19/21 19:15 Date of discharge: 03/26/21 Primary care physician: Yuki De Dios MD Consults: 03/19/21 19:17 Consult to Cardiology Routine Consulting Provider: Art Germain Reason for consultation: CHF 03/24/21 09:48 Consult to Nephrology Routine Consulting Provider: Coy Ruffin Reason for consultation: worsening CKD w fluid overload. DS: Diagnosis Discharge Diagnosis (1) Acute diastolic (congestive) heart failure: Status: Acute (2) MARILEE (acute kidney injury): Status: Acute (3) Diabetic nephropathy associated with type 2 diabetes mellitus: Status: Acute DS: Summary Hospital Course Hospital Course: 1-year-old female with a past medical history of hypertension, hyperlipidemia, diabetes, CAD, CHF, CKD, guided stenosis, hypothyroidism, pulmonary nodule, RAISA, paroxysmal AFib -not on anticoagulation, history of thyroid cancer status post thyroidectomy, anemia, COPD, GERD presented to the hospital today with a chief complaint of shortness of breath.Per ER team patient was found by the EMS called in vomitus, dried stool on the legs; noted to elevated proBNP, peripheral edema, concern for CHF; given Lasix; patient blood pressure was also noted to be elevated; given labetalol.? EKG was nonischemic admitted for further management Hospital Course Patient admitted to hospital and treated for acute systolic CHF. Seen by Cardiology and meds adjusted. [place] to be multifactorial along with noncompliance. She was seen in consultation by Renal who fell creatinine was at baseline and can be diuresed orally. She continued to do well and on the day of discharge she is medically acceptable for transfer to continue current plan of therapy. Adjustments as per receiving physician Time Spent with Patient Time attestation: Total time spent providing and/or coordinating discharge services: Discharge coordination time: Greater than 30 minutes Quality: Stroke Does the patient have a stroke diagnosis?: No Physical Exam Vital Signs: Vital Signs: Last Vital Signs Temp 99.2 F 03/26/21 11:42 Pulse 75 03/26/21 11:42 Resp 20 03/26/21 11:42 BP 149/66 H 03/26/21 11:42 Pulse Ox 98 03/26/21 11:42 BMI result Body Mass Index 30.9 Const: Other: No acute distress Resp: Other: Clear to auscultation bilaterally no rales rhonchi wheezes Cardio: Other: No S4; positive S1-S2; no S3 murmurs rubs or gallops GI: Other: Soft nontender nondistended with normoactive bowel sounds Extrem: Other: Trace edema DS: Data Data Completed and Pending Completed studies during hospitalization [Text1]: Procedures Excision of Duodenum, Via Natural or Artificial Opening Endoscopic, Diagnostic (04/05/20) Excision of Large Intestine, Via Natural or Artificial Opening Endoscopic, Diagnostic (04/05/20) Excision of Stomach, Pylorus, Via Natural or Artificial Opening Endoscopic, Diagnostic (04/05/20) Transfusion of Nonautologous Red Blood Cells into Peripheral Vein, Percutaneous Approach (04/05/20) Labs on day of discharge: Laboratory Results - last 24 hr 03/25/21 03/25/21 03/25/21 16:30 20:22 20:30 WBC RBC Hgb Hct MCV MCH MCHC RDW Plt Count MPV Immature Gran % (Auto) Neut % (Auto) Lymph % (Auto) Bonner % (Auto) Eos % (Auto) Baso % (Auto) Lymph # (Auto) Bonner # (Auto) Eos # (Auto) Baso # (Auto) Abs Immat Gran (auto) Absolute Neuts (auto) Absolute Nucleated RBC Nucleated RBC % (auto) O2 Saturation 82.0 ABG pH at Pt Temp 7.48 H ABG pH (Temp Correct) 7.49 H ABG pCO2 at Pt Temp 38 ABG pCO2 (Temp Corrct 37 ABG pO2 at Pt Temp 53 L ABG pO2 (Temp Correct 51 L ABG HCO3 29 H ABG Base Excess (Actual) 5.4 Sodium Potassium Chloride Carbon Dioxide Anion Gap BUN Creatinine Estim Creat Clear Calc Estimated GFR POC Glucose 87 120 H Fasting Glucose Calcium Total Bilirubin AST ALT Alkaline Phosphatase Total Protein Albumin 03/26/21 03/26/21 03/26/21 05:28 05:28 07:20 WBC 4.7 L RBC 2.58 L Hgb 7.6 L Hct 23.0 L MCV 89.1 MCH 29.5 MCHC 33.0 RDW 14.6 Plt Count 218 MPV 10.3 Immature Gran % (Auto) 1.1 H Neut % (Auto) 55.3 Lymph % (Auto) 33.9 Bonner % (Auto) 8.2 Eos % (Auto) 1.1 Baso % (Auto) 0.4 Lymph # (Auto) 1.6 Bonner # (Auto) 0.4 Eos # (Auto) 0.1 Baso # (Auto) 0.0 Abs Immat Gran (auto) 0.05 H Absolute Neuts (auto) 2.6 Absolute Nucleated RBC 0.000 Nucleated RBC % (auto) 0.0 O2 Saturation ABG pH at Pt Temp ABG pH (Temp Correct) ABG pCO2 at Pt Temp ABG pCO2 (Temp Corrct ABG pO2 at Pt Temp ABG pO2 (Temp Correct ABG HCO3 ABG Base Excess (Actual) Sodium 139 Potassium 3.1 L Chloride 107 Carbon Dioxide 28 Anion Gap 7 L BUN 23 H Creatinine 2.56 H Estim Creat Clear Calc 16.2 Estimated GFR 18 POC Glucose 78 Fasting Glucose 83 Calcium 7.3 L Total Bilirubin 0.3 AST 79 H ALT 47 H Alkaline Phosphatase 113 Total Protein 3.4 L Albumin 1.7 L 03/26/21 11:45 WBC RBC Hgb Hct MCV MCH MCHC RDW Plt Count MPV Immature Gran % (Auto) Neut % (Auto) Lymph % (Auto) Bonner % (Auto) Eos % (Auto) Baso % (Auto) Lymph # (Auto) Bonner # (Auto) Eos # (Auto) Baso # (Auto) Abs Immat Gran (auto) Absolute Neuts (auto) Absolute Nucleated RBC Nucleated RBC % (auto) O2 Saturation ABG pH at Pt Temp ABG pH (Temp Correct) ABG pCO2 at Pt Temp ABG pCO2 (Temp Corrct ABG pO2 at Pt Temp ABG pO2 (Temp Correct ABG HCO3 ABG Base Excess (Actual) Sodium Potassium Chloride Carbon Dioxide Anion Gap BUN Creatinine Estim Creat Clear Calc Estimated GFR POC Glucose 111 Fasting Glucose Calcium Total Bilirubin AST ALT Alkaline Phosphatase Total Protein Albumin Discharge Plan Discharge Patient Disposition: Xfer Inpatient Rehab Fac Discharge Diagnosis: Acute Systolic CHF exacerbation Referrals: Yuki De Dios MD [Primary Care Provider] - 1 Week Discharge Medications: New furosemide [Lasix] 40 mg tablet 40 mg PO DAILY Qty: 30 RF: 0 Continued cholecalciferol (vitamin D3) 50 mcg (2,000 unit) capsule 50 mcg PO DAILY Qty: 30 RF: 11 omeprazole 20 mg capsule,delayed release(DR/EC) 20 mg PO BID Qty: 60 RF: 5 (DME) pen needle, diabetic [BD Swetha 2nd Gen Pen Needle] 32 gauge x 5/32 needle See Rx Instructions .MEDSUPPLY Qty: 400 RF: 4 (DME) FreeStyle Lite Strips Strip See Rx Instructions .MEDSUPPLY Qty: 300 RF: 6 (DME) lancets [TRUEplus Lancets] 33 gauge misc See Rx Instructions .ROUTE .MEDSUPPLY Qty: 300 RF: 3 doxazosin 4 mg tablet 12 mg PO DAILY Qty: 90 RF: 2 ferrous gluconate 324 mg (37.5 mg iron) tablet 324 mg PO BID Qty: 60 RF: 2 carvedilol 6.25 mg tablet 6.25 mg PO BID Qty: 60 RF: 5 levothyroxine 75 mcg tablet 75 mcg PO DAILY 90 Days Qty: 90 RF: 1 atorvastatin 80 mg tablet 80 mg PO BEDTIME Qty: 30 RF: 6 isosorbide mononitrate 120 mg tablet extended release 24 hr 120 mg PO DAILY Qty: 30 RF: 3 amlodipine 10 mg tablet 10 mg PO DAILY Qty: 30 RF: 5 albuterol sulfate [Ventolin HFA] 90 mcg/actuation HFA aerosol inhaler 2 puff inhalation Q4H RF: 0 hydralazine 100 mg tablet 100 mg PO TID RF: 0 Discharge Orders: Discharge Order (Routine); Ordered 03/26/21 Ordered By: Neal Wilder Diet: advance to usual diet Activity on Discharge: As tolerated Stand Alone Forms: Patient Portal Discharge page Care Plan Goals: Continue current therapies. Further plans as per SNF Health Concerns: Med compliance Plan of Treatment: As ordered Assessment: As above
--- NOTE | 2021-03-26 14:39 | MHC.CM.PN ---
Addendum entered by Racquel Al RN 03/26/21 15:12: CM ATTEMPTED TO REACH PT'S /HCP SIMEON PACE TO CONFIRM PT'S D/C, CM UNABLE TO LEAVE MESSAGE D/T NO VOICEMAIL SET UP. CM HAD DISCUSSED PLAN YESTERDAY 03/25 W/SIMEON WHILE HE WAS IN FS OFFICE AND HE WAS OKAY W/POSSIBLE TXFR TODAY TO [facility] W/REQUEST TO TXFR PT TO W/NEXT AVAILABLE BED. Original Note: PT DISCHARGING TO [facility] AND PER FAMILY REQUEST PT WILL TXFR TO [facility] ONCE BED IS AVAILABLE, ACTION FOR S TRANSPORT
--- NOTE | 2021-03-26 15:37 | PC.NURSE ---
Report called to Angelina bustos [place], Report given to Agatha SALDIVAR. IV removed from left lower arm, and tele monitor removed.
[2021-03-26 15:40] VITALS: BP 178/75; PULSE 72; RESP 17; TEMP 36.9; O2SAT 97
[2021-03-26 16:03] LABS: Glucose, Whole Blood 92 mg/dL (60-115)
== END 2021-03-26 18:03 | DRG 291 ==
LOC: HO.ED 17:21 → HO.EDOVER 19:21 → HO.IMC 03-20 22:44 → HO.EDOVER 03-21 03:40 → HO.S3 03-21 12:58
PROVIDERS: Emergency Medicine; Internal Medicine Nephrology; Student in an Organized Health Care Education/Training Program; Admitting Provider Hospitalist; Emergency Provider Emergency Medicine; PCP Internal Medicine; Visit Provider Hospitalist
DX: I13.0 Hypertensive heart and chronic kidney disease with heart failure and stage 1 through stage 4 chronic kidney disease, or unspecified chronic kidney disease (principal); I50.33 Acute on chronic diastolic (congestive) heart failure; N18.4 Chronic kidney disease, stage 4 (severe); N17.9 Acute kidney failure, unspecified; I48.0 Paroxysmal atrial fibrillation; G47.33 Obstructive sleep apnea (adult) (pediatric); E11.22 Type 2 diabetes mellitus with diabetic chronic kidney disease; I16.0 Hypertensive urgency; D63.1 Anemia in chronic kidney disease; K74.60 Unspecified cirrhosis of liver; E89.0 Postprocedural hypothyroidism; Z91.14 Patient's other noncompliance with medication regimen; Z20.822 Contact with and (suspected) exposure to COVID-19; Z88.5 Allergy status to narcotic agent; Z79.890 Hormone replacement therapy; Z79.899 Other long term (current) drug therapy
CPT/HCPCS: 36415; 71045; 71250; 74176; 80048; 80053; 80076; 82378; 82728; 82803; 82947; 83540; 83605; 83690; 83735; 83880; 84439; 84443; 84484; 85025; 86850; 86900; 86901; 87040; 87635; 93005; 93306; 94640; 96365; 96375; 97162; 97163; 99285; J0885; J1940; J2405; P9047